=== PATIENT | female | born 1980 | race Caucasian/White ===

== ENCOUNTER → 2016-09-23 | Emergency (ER) | payer OTHER, MEDICAID ==
[~2016-09-23] MED LIST: NS 1000 ML 1,000 ML IV ONE; NS 1000 ML 1,000 ML ONE; TORADOL 30 MG VIAL IVP ONE; TORADOL 30 MG VIAL ONE; ZOFRAN INJ 4 MG VIAL IVP ONE; ZOFRAN INJ 4 MG VIAL ONE
[2016-09-23 13:05] VITALS: BP 164/94; BMI 36.3
--- NOTE | 2016-09-23 13:09 | DR.GENAD ---
HPI - PCP Primary Care Physician: DAVID - Complaint/Symptoms Chief Complaint Doctors Comments: Patient admits to nausea and vomiting for four days. She denies diarrhea. She was seen by her pcp and wqas given promethazine 25mg q8 for vomiting. A bone scan of the left lower extremity was done results pending. Chief Complaint:: NAUSEA AND VOMITING X 4 DAYS. - Source History Provided: Patient - Mode of Arrival Mode of Arrival: Ambulatory - Timing Onset of Chief Complaint: 09/20/16 PMH - PMH Past Medical History: Yes Past Medical History: Coronary Artery Disease, Depression, Diabetes, Migraines, GERD, Headaches, Hypertension, Renal Disease Past Surgical History: Yes Surgical History: , Cholecystectomy, Ortho Surgery - Family History History of Family Medical Conditions: Yes Family Medical History: Diabetes Mellitus, Cancer, [place], Sudden Cardiac , Hypertension - Social History Does patient currently use any type of tobacco product: No Have you used tobacco products in the last 12 months: No Type of Tobacco Use: None Does any household member use tobacco: No Alcohol Use: None Do you use any recreational Drugs:: No Lives With: Family Lives Where: Home - infectious screening In the last 2 months have you had wt loss of >10#?: NO Have you had fever, night sweats or hemotysis?: No Have you traveled outside the country in the last 6 months?: No Isolation: Standard ROS - Review of Systems Constitutional: No Symptoms Reported Eyes: No Symptoms Reported ENTM: No Symptoms Reported Respiratoy: No Symptoms Reported Cardiovascular: No Symptoms Reported Gastrointestinal/Abdominal: Nausea, Vomiting Genitourinary: No Symptoms Reported Neurological: No Symptoms Reported Musculoskeletal: No Symptoms Reported Integumentary: No Symptoms Reported Hematologic/Lymphatic: No Symptoms Reported Endocrine: No Symptoms Reported Psychiatric: No Symptoms Reported All Other Systems: Reviewed and Negative PE - Vital Signs Vitals: Temperature 97.8 F Pulse Rate 88 Respiratory Rate 16 Blood Pressure [Left Arm] 171/86 Blood Pressure [Right Arm] 178/92 Blood Pressure 164/94 O2 Sat by Pulse Oximetry 96 - General Limitations: No Limitations General Appearance: Alert, In No Apparent Distress - Head Head Exam: Normal Inspection, Atraumatic - Eyes Eye exam: Normal Appearance, PERRL, EOMI - ENT ENT Exam: Normal Exam External Ear Exam: Normal External Inspection TM/Canal Exam: Bilateral Normal Nose Exam: Normal Nose Exam Mouth Exam: Normal Inspection Throat Exam: Normal Inspection - Neck Neck Exam: Normal Inspection - Chest Chest Inspection: Normal Inspection - Respiratory Respiratory Exam: Normal Lung Sounds Bilat Respiratory Exam: Bilateral Clear to Auscultation - Cardiovascular Cardiovascular Exam: Regular Rate, Normal Rhythm - Abdominal Exam Abdominal Exam: Normal Inspection, Normal Bowel Sounds Abdominal Tenderness: negative: RUQ, RLQ, LUQ, LLQ, Epigastrium, Suprapubic, Diffuse, Mild, Moderate, Severe, Other - Extremities Extremities Exam: Normal Capillary Refill - Back Back Exam: Normal Inspection - Neurologic Neurological Exam: Alert, Oriented X3, CN II-XII Intact - Psychiatric Psychiatric Exam: Normal Affect, Normal Mood - Skin Skin Exam: Warm, Dry, Intact Course - Treatment Treatment: NS 1L - Reevaluation 1st: Improved ROR - Labs Reviewed Result Diagrams: 09/23/16 13:10 09/23/16 13:10 Laboratory: WBC 6.3 X10^3/uL (3.6-10.0) 09/23/16 13:10 RBC 3.80 X10^6/uL (3.5-5.4) 09/23/16 13:10 Hgb 11.4 g/dL (12.0-16.0) L 09/23/16 13:10 Hct 33.9 % (36.0-47.0) L 09/23/16 13:10 MCV 89.1 fL (80.0-100.0) 09/23/16 13:10 MCH 30.1 pg (27.0-34.0) 09/23/16 13:10 MCHC 33.8 g/dL (33.0-35.0) 09/23/16 13:10 RDW 12.4 % (11.6-16.5) 09/23/16 13:10 Plt Count 171 X10^3/uL (150.0-450.0) 09/23/16 13:10 MPV 8.1 fL (7.4-11.0) 09/23/16 13:10 Neut % 68.7 % (42.0-75.0) 09/23/16 13:10 Lymph % 23.4 % (21.0-51.0) 09/23/16 13:10 [place] % 4.4 % (0.0-13.0) 09/23/16 13:10 Eos % 1.6 % (0.9-2.9) 09/23/16 13:10 Baso % 1.9 % (0.2-1.0) H 09/23/16 13:10 Neut # 4.3 x10^3/uL (2.2-4.8) 09/23/16 13:10 Lymph # 1.5 X10^3/uL (1.3-2.9) 09/23/16 13:10 [place] # 0.3 x10^3/uL (0.3-0.8) 09/23/16 13:10 Eos # 0.1 x10^3/uL (0.0-0.2) 09/23/16 13:10 Baso # 0.1 X10^3/uL (0.0-0.1) 09/23/16 13:10 Absolute Nucleated RBC 0.0 /100WBC 09/23/16 13:10 Sodium 138 mmol/L (136-145) 09/23/16 13:10 Corrected Sodium 144 mmol/L (136-145) 09/23/16 13:10 Potassium 4.8 mmol/L (3.5-5.1) 09/23/16 13:10 Chloride 104 mmol/L (98-107) 09/23/16 13:10 Carbon Dioxide 22.1 mmol/L (21-32) 09/23/16 13:10 BUN 20 mg/dL (7-18) H 09/23/16 13:10 Creatinine 1.68 mg/dL (0.55-1.02) H 09/23/16 13:10 Est GFR (MDRD) Af Amer 44 (>60) L 09/23/16 13:10 Est GFR (MDRD) Non-Af 36 (>60) L 09/23/16 13:10 Glucose 361 mg/dL (65-99) H 09/23/16 13:10 Calcium 8.7 mg/dL (8.5-10.1) 09/23/16 13:10 Corrected Calcium TNP 09/23/16 13:10 Total Bilirubin 0.50 mg/dL (0.2-1.0) 09/23/16 13:10 AST 11 Units/L (15-37) L 09/23/16 13:10 ALT 28 Units/L (12-78) 09/23/16 13:10 Alkaline Phosphatase 102 Units/L (46-116) 09/23/16 13:10 Total Protein 7.4 g/dL (6.4-8.2) 09/23/16 13:10 Albumin 3.5 g/dL (3.4-5.0) 09/23/16 13:10 Globulin 3.9 g/dL (2.5-4.5) 09/23/16 13:10 Albumin/Globulin Ratio 0.9 Ratio (1.1-2.1) L 09/23/16 13:10 - Diagnosis Discharge Problem: Vomiting Qualifiers: Vomiting type: unspecified Vomiting Intractability: non-intractable Nausea presence: with nausea Qualified Code(s): R11.2 - Nausea with vomiting, unspecified - Discharge Plan Condition: Stable - Follow ups/Referrals Follow ups/Referrals: NISH HERNANDEZ [Primary Care Provider] - 3 days - Instructions
[2016-09-23 13:26] LABS: BASOPHILS # (AUTO) 0.1 X10^3/uL (0.0-0.1); BASOPHILS % (AUTO) 1.9 % (0.2-1.0); EOSINOPHILS # (AUTO) 0.1 x10^3/uL (0.0-0.2); EOSINOPHILS % (AUTO) 1.6 % (0.9-2.9); HEMATOCRIT 33.9 % (36.0-47.0); HEMOGLOBIN 11.4 g/dL (12.0-16.0); LYMPHOCYTES # (AUTO) 1.5 X10^3/uL (1.3-2.9); LYMPHOCYTES % (AUTO) 23.4 % (21.0-51.0); MEAN CORPUSCULAR HEMOGLOBIN 30.1 pg (27.0-34.0); MEAN CORPUSCULAR HGB CONC 33.8 g/dL (33.0-35.0); MEAN CORPUSCULAR VOLUME 89.1 fL (80.0-100.0); MEAN PLATELET VOLUME 8.1 fL (7.4-11.0); MONOCYTES # (AUTO) 0.3 x10^3/uL (0.3-0.8); MONOCYTES % (AUTO) 4.4 % (0.0-13.0); NEUTROPHILS # (AUTO) 4.3 x10^3/uL (2.2-4.8); NEUTROPHILS % (AUTO) 68.7 % (42.0-75.0); PLATELET COUNT 171 X10^3/uL (150.0-450.0); RED CELL DISTRIBUTION WIDTH 12.4 % (11.6-16.5); WHITE BLOOD COUNT 6.3 X10^3/uL (3.6-10.0)
[2016-09-23 13:39] LABS: ALANINE AMINOTRANSFERASE 28 Units/L (12-78); ALBUMIN 3.5 g/dL (3.4-5.0); ALKALINE PHOSPHATASE 102 Units/L (46-116); ASPARTATE AMINO TRANSFERASE 11 Units/L (15-37); BLOOD UREA NITROGEN 20 mg/dL (7-18); CALCIUM 8.7 mg/dL (8.5-10.1); CARBON DIOXIDE 22.1 mmol/L (21-32); CHLORIDE 104 mmol/L (98-107); COR NA(FOR HYPERGLY) 144 mmol/L (136-145); CREATININE 1.68 mg/dL (0.55-1.02); GLUCOSE 361 mg/dL (65-99); SODIUM 138 mmol/L (136-145); TOTAL PROTEIN 7.4 g/dL (6.4-8.2); eGFR BLACK RACES 44 (>60); eGFR NON BLACK RACES 36 (>60)
== END ==
LOC: ER 12:57
DX: R11.2 Nausea with vomiting, unspecified (principal)
CPT/HCPCS: 36415; 80053; 85025; 96367; 96374; 96375; 99282; 99283; A4222; J1885; J2405

== ENCOUNTER 2016-10-15 19:02 | Emergency (ER) | payer OTHER, MEDICAID ==
[2016-10-15 19:13] VITALS: BMI 36.3
[2016-10-15] MEDS ORDERED: DUONEB 0.5 MG/3 MG NEB ONE (20:09)
--- NOTE | 2016-10-15 20:09 | DR.GENAD ---
HPI - PCP Primary Care Physician: DAVID - Complaint/Symptoms Chief Complaint Doctors Comments: Patient stated that she saw her pcp today and was given a shot for cough. The cough has returned. She denies a history of cardiopulmonary disease. She stated that she fell off the commode this PM injured left lower extremity. Chief Complaint:: COUGH SHORTNESS OF BREATH, LEG PAIN AT SURGICAL SITE - Source History Provided: Patient - Mode of Arrival Mode of Arrival: Stretcher - Timing Onset of Chief Complaint: 10/13/16 PMH - PMH Past Medical History: Yes Past Medical History: Coronary Artery Disease, Depression, Diabetes, Migraines, GERD, Headaches, Hypertension, Renal Disease Past Surgical History: Yes Surgical History: , Cholecystectomy, Ortho Surgery Past Surgical History Comment: RIGHT BKA LEFT PARTIAL FOOT AMPUTATION - Family History History of Family Medical Conditions: Yes Family Medical History: Diabetes Mellitus, Cancer, [place], Sudden Cardiac , Hypertension - Social History Does patient currently use any type of tobacco product: No Have you used tobacco products in the last 12 months: No Type of Tobacco Use: None Does any household member use tobacco: Yes Alcohol Use: None Do you use any recreational Drugs:: No Lives With: Family Lives Where: Home - infectious screening In the last 2 months have you had wt loss of >10#?: NO Have you had fever, night sweats or hemotysis?: No Have you traveled outside the country in the last 6 months?: No Isolation: Standard ROS - Review of Systems Constitutional: No Symptoms Reported Eyes: No Symptoms Reported ENTM: No Symptoms Reported Respiratoy: No Symptoms Reported Cardiovascular: No Symptoms Reported Gastrointestinal/Abdominal: No Symptoms Reported Genitourinary: No Symptoms Reported Neurological: No Symptoms Reported Musculoskeletal: Left (injured when fell from the commode) Integumentary: No Symptoms Reported Hematologic/Lymphatic: No Symptoms Reported Endocrine: No Symptoms Reported Psychiatric: No Symptoms Reported All Other Systems: Reviewed and Negative PE - Vital Signs Vitals: Temperature 99.4 F Pulse Rate [Left Brachial] 94 Pulse Rate 99 Respiratory Rate 20 Blood Pressure [Left Arm] 127/69 Blood Pressure [Right Arm] 178/92 Blood Pressure 160/86 O2 Sat by Pulse Oximetry 100 - General Limitations: No Limitations General Appearance: Alert - Head Head Exam: Normal Inspection, Atraumatic - Eyes Eye exam: Normal Appearance, PERRL, EOMI - ENT ENT Exam: Normal Exam External Ear Exam: Normal External Inspection TM/Canal Exam: Bilateral Normal Nose Exam: Normal Nose Exam Mouth Exam: Normal Inspection Throat Exam: Normal Inspection - Neck Neck Exam: Normal Inspection - Chest Chest Inspection: Normal Inspection - Respiratory Respiratory Exam: Normal Lung Sounds Bilat Respiratory Exam: Bilateral Clear to Auscultation - Cardiovascular Cardiovascular Exam: Regular Rate - Abdominal Exam Abdominal Exam: Normal Inspection Abdominal Tenderness: negative: RUQ, RLQ, LUQ, LLQ, Epigastrium, Suprapubic, Diffuse, Mild, Moderate, Severe, Other - Extremities Extremities Exam: Other (left lower extremity post surgery with sutures intact no drainage or erythema) - Back Back Exam: Normal Inspection - Neurologic Neurological Exam: Alert, Oriented X3, CN II-XII Intact - Psychiatric Psychiatric Exam: Normal Affect - Skin Skin Exam: Warm Course - Reevaluation 1st: Improved ROR - XRAY XRAY Interpreted by: Radiologist (Chest: No acute cardiopulmonary disease) - Diagnosis Discharge Problem: Expiratory wheezing - Discharge Plan Condition: Stable - Follow ups/Referrals Follow ups/Referrals: NISH HERNANDEZ [Primary Care Provider] - 3 days - Instructions
[2016-10-15] MEDS ORDERED: DUONEB 0.5 MG/3 MG ONE (20:10)
[2016-10-15] MEDS ORDERED: PHENERGAN W/CODEINE 6.25MG/10MG PO ONE (21:32)
[2016-10-15] MEDS ORDERED: PHENERGAN W/CODEINE 6.25MG/10MG ONE (21:38)
[2016-10-15 21:44] VITALS: BP 127/69
--- NOTE | 2016-10-15 22:16 | RAD ---
AP Chest Indication: Expiratory wheezing with cough Comparison: 08/29/2016 Findings: The trachea is midline. The cardiac silhouette is unremarkable. Previous CABG is again noted. The l ungs are clear without focal infiltrate or effusion. The bony thorax is unremarkable. IMPRESSION: 1. No acute cardiopulmonary abnormality. Reported By:
== END 2016-10-15 22:55 | disposition home or self-care (01) ==
LOC: ER 19:05
DX: R06.2 Wheezing (principal)
CPT/HCPCS: 71010; 94640; 99282; J7620

== ENCOUNTER 2016-10-26 15:57 | Inpatient (IN) | payer OTHER, MEDICAID ==
[2016-10-26] MEDS ORDERED: ZOFRAN INJ 4 MG VIAL IVP PRN (16:48)
--- NOTE | 2016-10-26 17:04 | DR.H&P ---
H&P - History & Physical for Day of: H&P Date: 10/26/16 - Chief Complaint Chief Complaint: lle wound, redness, d/c - Allergies Allergies/Adverse Reactions: Allergies Allergy/AdvReac Type Severity Reaction Status Date / Time No Known Drug Allergy Allergy Verified 06/25/16 15:21 - History of Present Illness History of Present Illness: DIRECT ADMIT FROM DR DE LOS SANTOS OFFICE WITH CO LLE PAIN AND INFECTED WOUND FOLLOWING ORTHO PROCEDURE TO REMOVE HARDWARE. PT HAD PROCEDURE PER DR BASS IN [facility]. PT WAS SEEN 2 WEEKS AGO AND GIVEN ROUND OF BACTRIM, THEN SEEN ONE DAY AGO AND STARTED ON VANCOMYCIN. PT UNABLE TO KEEP PO MEDS DOWN, CO ELEVATED BLOOD SUGAR. PLAN TO ADMIT FOR FURTHER EVALUATION OF WOUND INFECTION, START IV LEVAQUIN AND TEFLERO - Past Medical History Past Medical History: Coronary Artery Disease, Depression, Diabetes, Migraines, GERD, Headaches, Hypertension, Renal Disease - Past Surgical History Surgical History: , Cholecystectomy, Ortho Surgery - Family History Family Medical History: Diabetes Mellitus, Cancer, [place], Sudden Cardiac , Hypertension - Social History Does patient currently use any type of tobacco product: No Have you used tobacco products in the last 12 months: No Type of Tobacco Use: None Does any household member use tobacco: No Alcohol Use: None Drug Use: None - Review of Systems Constitutional: Chills, Sweats, Weakness Eyes: Vision Change (CHRONIC) ENT: No Symptoms Reported Respiratory: No Symptoms Reported Cardiovascular: No Symptoms Reported Gastrointestinal: Nausea, Vomiting Genitourinary: No Symptoms Reported Musculoskeletal: Leg Pain Skin: Wound Neurological: No Symptoms Reported - Physical Exam Vital Signs: Blood Pressure [Left Arm] 127/69 Blood Pressure [Right Arm] 178/92 Blood Pressure 127/69 Oriented: Normal Eyes: Other (BLINDNESS RIGHT EYE, [place] LENS) Ear: Normal Nose: Normal Throat: Normal Respiratory: Clear Throughout Cardiovascular: Normal : Normal Auscultation: Bowel Sounds: Normal Palpation: Normal Tenderness: Normal Skin: Wound Musculoskeletal: Leg (LEFT LOWER EXTREMITY WOUND WITH LOCALIZED REDNESS, PURULENT D/C, TENDER), Swelling, Tender Mood Description: Calm Speech Pattern: Clear, Appropriate - Assessment/Plan (1) Lower extremity cellulitis Qualifiers: Laterality: L Status: Acute Plan: LLE, OBTAIN ADMISSION LABS, WOUND CULTURE, BLOOD CULTURE. XRAY LLE, START IV TEFLERO, LEVAQUIN IV. IV HYDRATION, WOUND CARE (2) Nausea & vomiting Qualifiers: Vomiting type: V Vomiting Intractability: V Status: Acute Plan: NAUSEA CONTROL, IV HYDRATION (3) CAD (coronary artery disease) Qualifiers: Coronary Disease-Associated Artery/Lesion type: C [place] vs. transplanted heart: N Associated angina: A Status: Chronic (4) Chronic kidney disease (CKD) Qualifiers: Chronic kidney disease stage: stage 3 (moderate) Qualified Code(s): N18.3 - Chronic kidney disease, stage 3 (moderate) Status: Chronic (5) Diabetes mellitus Qualifiers: Diabetes mellitus type: D Diabetes mellitus complication status: D Diabetes mellitus complication detail: D Diabetic retinopathy severity: D Proliferative retinopathy type: P Diabetes mellitus macular edema: D Diabetes mellitus alf insulin use: D Laterality: L Chronic kidney disease stage: C Status: Chronic Plan: SSI (6) GERD (gastroesophageal reflux disease) Qualifiers: Esophagitis presence: E Status: Chronic
[2016-10-26 17:40] LABS: BASOPHILS # (AUTO) 0.1 X10^3/uL (0.0-0.1); BASOPHILS % (AUTO) 1.6 % (0.2-1.0); EOSINOPHILS # (AUTO) 0.2 x10^3/uL (0.0-0.2); EOSINOPHILS % (AUTO) 2.8 % (0.9-2.9); HEMATOCRIT 26.6 % (36.0-47.0); HEMOGLOBIN 8.8 g/dL (12.0-16.0); LYMPHOCYTES # (AUTO) 1.3 X10^3/uL (1.3-2.9); LYMPHOCYTES % (AUTO) 17.4 % (21.0-51.0); MEAN CORPUSCULAR HEMOGLOBIN 30.7 pg (27.0-34.0); MEAN CORPUSCULAR HGB CONC 32.9 g/dL (33.0-35.0); MEAN CORPUSCULAR VOLUME 93.3 fL (80.0-100.0); MEAN PLATELET VOLUME 9.1 fL (7.4-11.0); MONOCYTES # (AUTO) 0.5 x10^3/uL (0.3-0.8); MONOCYTES % (AUTO) 6.2 % (0.0-13.0); NEUTROPHILS # (AUTO) 5.3 x10^3/uL (2.2-4.8); PLATELET COUNT 266 X10^3/uL (150.0-450.0); RED BLOOD COUNT 2.86 X10^6/uL (3.5-5.4); RED CELL DISTRIBUTION WIDTH 16.2 % (11.6-16.5); WHITE BLOOD COUNT 7.3 X10^3/uL (3.6-10.0)
[2016-10-26 17:51] LABS: ALANINE AMINOTRANSFERASE 21 Units/L (12-78); ALBUMIN 3.8 g/dL (3.4-5.0); ALKALINE PHOSPHATASE 108 Units/L (46-116); ASPARTATE AMINO TRANSFERASE 12 Units/L (15-37); BLOOD UREA NITROGEN 17 mg/dL (7-18); CALCIUM 8.8 mg/dL (8.5-10.1); CARBON DIOXIDE 23.1 mmol/L (21-32); CHLORIDE 108 mmol/L (98-107); COR NA(FOR HYPERGLY) 145 mmol/L (136-145); CREATININE 1.94 mg/dL (0.55-1.02); GLUCOSE 200 mg/dL (65-99); MAGNESIUM 1.6 mg/dL (1.7-2.9); SODIUM 143 mmol/L (136-145); eGFR BLACK RACES 37 (>60); eGFR NON BLACK RACES 31 (>60)
[2016-10-26] MEDS: NS 1000 ML 1,000 ML IV SCH (18:02)
[2016-10-26] MEDS: LEVAQUIN PREMIX IV 500 MG 500 MG/100 ML BAG IV SCH (18:02)
[2016-10-26] MEDS: MORPHINE SULFATE INJ 2 MG IVP PRN ×2 (18:11→22:27)
[2016-10-26 18:31] LABS: ERYTHROCYTE SEDIMENTATION RATE 58 MM/HOUR (0-20)
[2016-10-26 18:35] VITALS: BMI 36.9
--- NOTE | 2016-10-26 19:26 | RAD ---
EXAM: Left Lower Extremity X-ray INDICATION: Leg pain COMPARISION: Prior exam from August 29, 2016 TECHNIQUE: PA and Lat, 2 view FINDINGS: The plate and screw fixation of the distal tibia has been removed since prior exam. If the distal ti bial fracture line is unchanged compared to prior. The proximal fibular fracture with callus formati on is also unchanged. No acute fracture or dislocation. There is lucency in the distal tibia related to the previous hardware. Along the distal metaphysis of the tibia there is a larger region of luce ncy which is larger than a typical screw tract and measures 2.5 x 1.8 cm on the AP view. The joint s paces are preserved. There is soft tissue swelling of the distal lower extremity. IMPRESSION: Of the distal tibial hardware has been removed since prior exam. There is a area of lucency in the d istal tibial metaphysis which does not conform to typical hardware screw tracts and may represent in fection. If infection is clinically suspected, an MRI of the lower extremity/ankle could be obtained . No acute fracture identified. Reported By:
[2016-10-26 21:51] LABS: BILIRUBIN,URINE NEGATIVE (NEGATIVE); BLOOD/HEMOGLOBIN,URINE 5+ (NEGATIVE); GLUCOSE, URINE 2+ (NEGATIVE); KETONES,URINE NEGATIVE (NEGATIVE); LEUKOCYTE ESTERASE ,URINE 2+ (NEGATIVE); NITRITES,URINE NEGATIVE (NEGATIVE); PROTEIN,URINE 4+ (NEGATIVE); UROBILINOGEN,URINE NORMAL (NORMAL)
[2016-10-26] MEDS: TEFLARO 600 MG in NS 50 ML IV + SPIKE MINIBAG* 50 ML IV SCH (21:51)
[2016-10-26] MEDS: SNACK - Diabetic Appropriate PO SCH (21:52)
[2016-10-26] MEDS: HumuLIN R SUBCUT PRN (21:53)
[2016-10-26 22:13] LABS: APPEARANCE,URINE CLOUDY (CLEAR); BACTERIA,URINE 1+ /HPF (NEGATIVE); COLOR,URINE YELLOW (YELLOW); RBC,URINE 20-30 /HPF (NEGATIVE); SQUAMOUS EPITHELIAL CELL,UR NUMEROUS /HPF (NEGATIVE)
[2016-10-27] MEDS: MORPHINE SULFATE INJ 2 MG IVP PRN ×3 (02:45→17:25)
[2016-10-27] MEDS: NS 1000 ML 1,000 ML IV SCH ×2 (06:18→21:55)
[2016-10-27] MEDS: HumuLIN R SUBCUT PRN ×3 (06:18→21:57)
[2016-10-27 06:58] LABS: CARBON DIOXIDE 22.6 mmol/L (21-32); COR CA(FOR HYPOALB) 8.8 mg/dL (8.5-10.1); CREATININE 1.99 mg/dL (0.55-1.02); TOTAL PROTEIN 6.7 g/dL (6.4-8.2)
[2016-10-27 07:31] LABS: BASOPHILS # (AUTO) 0.1 X10^3/uL (0.0-0.1); BASOPHILS % (AUTO) 1.4 % (0.2-1.0); EOSINOPHILS # (AUTO) 0.2 x10^3/uL (0.0-0.2); EOSINOPHILS % (AUTO) 2.8 % (0.9-2.9); HEMATOCRIT 23.1 % (36.0-47.0); HEMOGLOBIN 7.4 g/dL (12.0-16.0); LYMPHOCYTES # (AUTO) 1.1 X10^3/uL (1.3-2.9); LYMPHOCYTES % (AUTO) 20.7 % (21.0-51.0); MEAN CORPUSCULAR HEMOGLOBIN 30.7 pg (27.0-34.0); MEAN CORPUSCULAR HGB CONC 32.2 g/dL (33.0-35.0); MEAN CORPUSCULAR VOLUME 95.2 fL (80.0-100.0); MEAN PLATELET VOLUME 9.8 fL (7.4-11.0); MONOCYTES # (AUTO) 0.4 x10^3/uL (0.3-0.8); MONOCYTES % (AUTO) 7.1 % (0.0-13.0); NEUTROPHILS # (AUTO) 3.8 x10^3/uL (2.2-4.8); PLATELET COUNT 183 X10^3/uL (150.0-450.0); RED BLOOD COUNT 2.42 X10^6/uL (3.5-5.4); RED CELL DISTRIBUTION WIDTH 17.1 % (11.6-16.5); WHITE BLOOD COUNT 5.5 X10^3/uL (3.6-10.0)
[2016-10-27] MEDS ORDERED: VENTOLIN or PROAIR HFA IN PRN (08:07)
[2016-10-27 08:11] LABS: ANISOCYTOSIS SLIGHT; HYPOCHROMASIA 1+; MICROCYTOSIS SLIGHT; PLATELET MORPHOLOGY COMMENT NORMAL (NORMAL)
[2016-10-27] MEDS ORDERED: [UNRECOGNIZED DRUG - OTHER] PO SCH (09:00)
[2016-10-27] MEDS ORDERED: [UNRECOGNIZED DRUG - OTHER] PO SCH (09:00)
[2016-10-27] MEDS ORDERED: [UNRECOGNIZED DRUG - OTHER] PO SCH (09:00)
[2016-10-27] MEDS: LEVAQUIN PREMIX IV 500 MG 500 MG/100 ML BAG IV SCH (09:13)
[2016-10-27] MEDS: TEFLARO 600 MG in NS 50 ML IV + SPIKE MINIBAG* 50 ML IV SCH ×2 (09:13→21:55)
[2016-10-27] MEDS: EFFEXOR XR 75 MG CAP PO SCH (10:11)
[2016-10-27] MEDS: ASPIRIN PO SCH (10:11)
[2016-10-27] MEDS: LASIX PO SCH (10:11)
[2016-10-27] MEDS: LYRICA CAP 50 MG PO SCH ×2 (10:11→21:56)
[2016-10-27] MEDS: PROTONIX TAB 40 MG PO SCH (10:11)
[2016-10-27] MEDS: PLAVIX PO SCH (10:12)
[2016-10-27] MEDS: COZAAR PO SCH (10:15)
[2016-10-27] MEDS: NORCO 10/325 TAB PO PRN ×2 (12:22→21:56)
--- NOTE | 2016-10-27 17:13 | PCM.PROG ---
Progress Note - Progress Note for Day of Date: 10/27/16 - Subjective Subjective: PATIENT RESTS IN BED, COMPLAINS OF LLE PAIN. DRESSING TO LLE DRY AND INTACT. WOUND IS NOTED WITH PURULENT DRAINAGE. PATIENT CONTINUES ON IV LEVAQUIN AND TEFLARO FOR LLE WOUND INFECTION FOLLOWING REMOVAL OF HARDWARE BY CAMRON GONZALEZ. WOUND AND BLOOD CULTURES ARE PENDING. PATIENT AFEBRILE, VITALS STABLE. CBC WNL EXCEPT: H/H 7.4/23.1. CMP WNL EXCEPT: CHL 111, BUN/ CREAT 21/1.99, GFR 30, GLUCOSE 251, CALCIUM 8.0, MAGNESIUM 1.6, ALBUMIN 3.0. WE WILL ADMINISTER TWO MAG-RIDERS, CONTINUE CURRENT TREATMENT AND FOLLOW UP IN AM WITH LABS. - Past Medical Family Social History Past Med/Fam/Surg Hx: No changes since H&P Allergies: Allergies No Known Drug Allergy Allergy (Verified 10/26/16 17:56) - Review of Systems ROS: No change since H&P - Vital Signs and I&O's Vital Signs: Temperature 98.2 F Pulse Rate [Radial] 71 Respiratory Rate 18 Blood Pressure [Left Arm] 149/71 Blood Pressure [Right Arm] 178/92 Blood Pressure 127/69 O2 Sat by Pulse Oximetry 99 Intake and Output: Intake & Output 10/25/16 10/26/16 10/27/16 10/28/16 11:59 11:59 11:59 11:59 Intake Total 815 1320 Output Total 200 1500 Balance 615 -180 - Physical Exam Oriented: Normal Eyes: Other (BLINDNESS RIGHT EYE, [place] LENS) Ear: Normal Nose: Normal Throat: Normal Respiratory: Normal Cardiovascular: Normal : Normal Auscultation: Bowel Sounds: Normal Palpation: Normal Tenderness: Normal Skin: Wound Musculoskeletal: Leg (LEFT LOWER EXTREMITY WOUND WITH LOCALIZED REDNESS, PURULENT D/C, TENDER), Swelling, Tender Mood Description: Calm Speech Pattern: Clear - Laboratory and Diagnostics Result Diagrams: 10/27/16 04:58 10/27/16 04:58 Labs: 10/26/16 18:03 Leg - Left Gram Stain - Final 10/26/16 18:03 Leg - Left Wound Culture - Preliminary Laboratory WBC 5.5 X10^3/uL (3.6-10.0) 10/27/16 04:58 RBC 2.42 X10^6/uL (3.5-5.4) L 10/27/16 04:58 Hgb 7.4 g/dL (12.0-16.0) L 10/27/16 04:58 Hct 23.1 % (36.0-47.0) L 10/27/16 04:58 MCV 95.2 fL (80.0-100.0) 10/27/16 04:58 MCH 30.7 pg (27.0-34.0) 10/27/16 04:58 MCHC 32.2 g/dL (33.0-35.0) L 10/27/16 04:58 RDW 17.1 % (11.6-16.5) H 10/27/16 04:58 Plt Count 183 X10^3/uL (150.0-450.0) 10/27/16 04:58 Plt Count Comment Adequate (ADEQUATE) 10/27/16 04:58 MPV 9.8 fL (7.4-11.0) 10/27/16 04:58 Neut % 68.0 % (42.0-75.0) 10/27/16 04:58 Lymph % 20.7 % (21.0-51.0) L 10/27/16 04:58 [place] % 7.1 % (0.0-13.0) 10/27/16 04:58 Eos % 2.8 % (0.9-2.9) 10/27/16 04:58 Baso % 1.4 % (0.2-1.0) H 10/27/16 04:58 Neut # 3.8 x10^3/uL (2.2-4.8) 10/27/16 04:58 Lymph # 1.1 X10^3/uL (1.3-2.9) L 10/27/16 04:58 [place] # 0.4 x10^3/uL (0.3-0.8) 10/27/16 04:58 Eos # 0.2 x10^3/uL (0.0-0.2) 10/27/16 04:58 Baso # 0.1 X10^3/uL (0.0-0.1) 10/27/16 04:58 Absolute Nucleated RBC 0.1 /100WBC 10/27/16 04:58 Plt Morphology Comment Normal (NORMAL) 10/27/16 04:58 RBC Morphology Abnormal (NORMAL) A 10/27/16 04:58 Hypochromasia 1+ A 10/27/16 04:58 Anisocytosis Slight A 10/27/16 04:58 Microcytosis Slight A 10/27/16 04:58 ESR 58 MM/HOUR (0-20) H 10/26/16 17:20 Sodium 145 mmol/L (136-145) 10/27/16 04:58 Corrected Sodium 149 mmol/L (136-145) H 10/27/16 04:58 Potassium 4.7 mmol/L (3.5-5.1) 10/27/16 04:58 Chloride 111 mmol/L (98-107) H 10/27/16 04:58 Carbon Dioxide 22.6 mmol/L (21-32) 10/27/16 04:58 BUN 21 mg/dL (7-18) H 10/27/16 04:58 Creatinine 1.99 mg/dL (0.55-1.02) H 10/27/16 04:58 Est GFR (MDRD) Af Amer 36 (>60) L 10/27/16 04:58 Est GFR (MDRD) Non-Af 30 (>60) L 10/27/16 04:58 Glucose 251 mg/dL (65-99) H 10/27/16 04:58 Calcium 8.0 mg/dL (8.5-10.1) L 10/27/16 04:58 Corrected Calcium 8.8 mg/dL (8.5-10.1) 10/27/16 04:58 Magnesium 1.6 mg/dL (1.7-2.9) L 10/27/16 04:58 Total Bilirubin 0.20 mg/dL (0.2-1.0) 10/27/16 04:58 AST 10 Units/L (15-37) L 10/27/16 04:58 ALT 17 Units/L (12-78) 10/27/16 04:58 Alkaline Phosphatase 87 Units/L (46-116) 10/27/16 04:58 C-Reactive Protein 5.40 mg/L (0-3.0) H 10/26/16 17:20 Total Protein 6.7 g/dL (6.4-8.2) 10/27/16 04:58 Albumin 3.0 g/dL (3.4-5.0) L 10/27/16 04:58 Globulin 3.7 g/dL (2.5-4.5) 10/27/16 04:58 Albumin/Globulin Ratio 0.8 Ratio (1.1-2.1) L 10/27/16 04:58 Specimen Type Random urine 10/26/16 21:39 Urine Color Yellow (YELLOW) 10/26/16 21:39 Urine Appearance Cloudy (CLEAR) 10/26/16 21:39 Urine pH 5.0 (5.0 - 8.0) 10/26/16 21:39 Ur Specific [place] 1.020 (1.000-1.030) 10/26/16 21:39 Urine Protein 4+ (NEGATIVE) 10/26/16 21:39 Urine Glucose (UA) 2+ (NEGATIVE) 10/26/16 21:39 Urine Ketones Negative (NEGATIVE) 10/26/16 21:39 Urine Occult Blood 5+ (NEGATIVE) 10/26/16 21:39 Urine Nitrite Negative (NEGATIVE) 10/26/16 21:39 Urine Bilirubin Negative (NEGATIVE) 10/26/16 21:39 Urine Urobilinogen Normal (NORMAL) 10/26/16 21:39 Ur Leukocyte Esterase 2+ (NEGATIVE) 10/26/16 21:39 Urine RBC 20-30 /HPF (NEGATIVE) 10/26/16 21:39 Urine WBC 60-80 /HPF (NEGATIVE) 10/26/16 21:39 Ur Squamous Epith Cells Numerous /HPF (NEGATIVE) 10/26/16 21:39 Urine Bacteria 1+ /HPF (NEGATIVE) 10/26/16 21:39 Ur Culture Indicated? No/not ordered 10/26/16 21:39 - Plan (1) Lower extremity cellulitis Status: Acute Qualifiers: Laterality: left Qualified Code(s): L03.116 - Cellulitis of left lower limb Plan: AWAIT WOUND CULTURE, BLOOD CULTURE. CONTINUE IV TEFLERO, LEVAQUIN IV. IV HYDRATION, WOUND CARE (2) CAD (coronary artery disease) Status: Chronic Qualifiers: Coronary Disease-Associated Artery/Lesion type: C [place] vs. transplanted heart: N Associated angina: A (3) Chronic kidney disease (CKD) Status: Chronic Qualifiers: Chronic kidney disease stage: stage 3 (moderate) Qualified Code(s): N18.3 - Chronic kidney disease, stage 3 (moderate) (4) Diabetes mellitus, type 2 Status: Chronic Qualifiers: Diabetes mellitus complication status: D Diabetes mellitus complication detail: with chronic kidney disease Diabetic retinopathy severity: D Proliferative retinopathy type: P Diabetes mellitus macular edema: D Diabetes mellitus custodial insulin use: with custodial use Laterality: L Chronic kidney disease stage: C (5) GERD (gastroesophageal reflux disease) Status: Chronic Qualifiers: Esophagitis presence: E (6) History of [place] (myocardial infarction) Status: Chronic (7) History of anemia Status: Chronic (8) History of cardiomyopathy Status: Chronic (9) History of coronary artery disease Status: Chronic (10) History of right below knee amputation Status: Chronic (11) Hx of CABG Status: Chronic (12) Hyperlipidemia Status: Chronic Qualifiers: Hyperlipidemia type: H (13) Hypertension Status: Chronic Qualifiers: Hypertension type: H (14) Obesity Status: Chronic Qualifiers: Obesity type: O Obesity severity: O
[2016-10-27] MEDS ORDERED: PROVENTIL NEB TX 0.083% 2.5MG/ 3ML NEB PRN (18:23)
[2016-10-27] MEDS: MAGNESIUM SULFATE 1 GM/100 mL PREMIX 1 GM/100 ML BAG IV SCH ×2 (19:07→20:46)
[2016-10-27] MEDS: TOPAMAX PO SCH (21:56)
[2016-10-27] MEDS: LIPITOR TAB 20 MG PO SCH (21:56)
[2016-10-27] MEDS: SNACK - Diabetic Appropriate PO SCH (21:58)
[2016-10-28] MEDS: MORPHINE SULFATE INJ 2 MG IVP PRN ×3 (02:29→20:57)
[2016-10-28 06:12] LABS: MAGNESIUM 2.2 mg/dL (1.7-2.9)
[2016-10-28 06:28] LABS: BASOPHILS # (AUTO) 0.1 X10^3/uL (0.0-0.1); BASOPHILS % (AUTO) 2.2 % (0.2-1.0); EOSINOPHILS # (AUTO) 0.2 x10^3/uL (0.0-0.2); HEMATOCRIT 22.6 % (36.0-47.0); HEMOGLOBIN 7.4 g/dL (12.0-16.0); LYMPHOCYTES # (AUTO) 1.1 X10^3/uL (1.3-2.9); LYMPHOCYTES % (AUTO) 23.4 % (21.0-51.0); MEAN CORPUSCULAR HEMOGLOBIN 30.9 pg (27.0-34.0); MEAN CORPUSCULAR HGB CONC 32.7 g/dL (33.0-35.0); MEAN CORPUSCULAR VOLUME 94.7 fL (80.0-100.0); MEAN PLATELET VOLUME 9.5 fL (7.4-11.0); MONOCYTES # (AUTO) 0.4 x10^3/uL (0.3-0.8); MONOCYTES % (AUTO) 8.5 % (0.0-13.0); NEUTROPHILS # (AUTO) 2.8 x10^3/uL (2.2-4.8); NEUTROPHILS % (AUTO) 61.9 % (42.0-75.0); PLATELET COUNT 164 X10^3/uL (150.0-450.0); RED BLOOD COUNT 2.39 X10^6/uL (3.5-5.4); RED CELL DISTRIBUTION WIDTH 16.9 % (11.6-16.5); WHITE BLOOD COUNT 4.6 X10^3/uL (3.6-10.0)
[2016-10-28 06:57] LABS: ALBUMIN 2.9 g/dL (3.4-5.0); CALCIUM 7.7 mg/dL (8.5-10.1); COR CA(FOR HYPOALB) 8.6 mg/dL (8.5-10.1); CREATININE 2.05 mg/dL (0.55-1.02); TOTAL PROTEIN 6.5 g/dL (6.4-8.2)
[2016-10-28 08:40] LABS: ANISOCYTOSIS SLIGHT; HYPOCHROMASIA SLIGHT; PLATELET MORPHOLOGY COMMENT NORMAL (NORMAL)
[2016-10-28 08:41] LABS: MICROCYTOSIS SLIGHT
[2016-10-28] MEDS: COZAAR PO SCH (09:15)
[2016-10-28] MEDS: EFFEXOR XR 75 MG CAP PO SCH (09:15)
[2016-10-28] MEDS: LYRICA CAP 50 MG PO SCH ×2 (09:16→20:51)
[2016-10-28] MEDS: LASIX PO SCH (09:16)
[2016-10-28] MEDS: ASPIRIN PO SCH (09:16)
[2016-10-28] MEDS: PLAVIX PO SCH (09:17)
[2016-10-28] MEDS: TEFLARO 600 MG in NS 50 ML IV + SPIKE MINIBAG* 50 ML IV SCH ×2 (09:17→20:50)
[2016-10-28] MEDS: PROTONIX TAB 40 MG PO SCH (09:17)
[2016-10-28] MEDS: LEVAQUIN PREMIX IV 500 MG 500 MG/100 ML BAG IV SCH (09:17)
[2016-10-28] MEDS: NORCO 10/325 TAB PO PRN ×2 (09:18→18:16)
[2016-10-28] MEDS ORDERED: TYLENOL 325 MG TAB PO PRN (09:25)
[2016-10-28] MEDS ORDERED: NS 500 ML IV 500 ML IV ONE (09:25)
[2016-10-28] MEDS ORDERED: BENADRYL INJ 50 MG VIAL IVP PRN (09:25)
[2016-10-28] MEDS: MAG-OX TAB PO SCH (09:27)
[2016-10-28 11:14] LABS: HEMATOCRIT 23.1 % (36.0-47.0); HEMOGLOBIN 7.5 g/dL (12.0-16.0)
[2016-10-28] MEDS: NS 1000 ML 1,000 ML IV SCH ×2 (11:19→17:25)
[2016-10-28] MEDS: HumuLIN R SUBCUT PRN (12:16)
[2016-10-28 17:21] LABS: HEMATOCRIT 23.2 % (36.0-47.0); HEMOGLOBIN 7.5 g/dL (12.0-16.0)
--- NOTE | 2016-10-28 18:31 | PCM.PROG ---
Progress Note - Progress Note for Day of Date: 10/28/16 - Subjective Subjective: PATIENT RESTS IN BED AND CONTINUES TO REPORT LLE PAIN. DRESSING TO LLE DRY AND INTACT. WOUND CONTINUES WITH PURULENT DRAINAGE. PATIENT CONTINUES ON IV LEVAQUIN AND TEFLARO FOR LLE WOUND INFECTION FOLLOWING REMOVAL OF HARDWARE BY CAMRON GONZALEZ. PRELIMINARY WOUND CULTURE REPORTS COAGULASE POSITIVE STAPH. BLOOD CULTURES ARE PENDING. PATIENT AFEBRILE, VITALS STABLE. CBC WNL EXCEPT: H/H 7.4/22/6. CMP WNL EXCEPT: CHL 109, BUN/CREAT 25/2.05, GFR 29, GLUCOSE 141, CALCIUM 7.7, ALBUMIN 2.9. WE WILL CHECK H/H EVERY 6 HOURS AND TRANSFUSE IF HGB IS LESS THAN 7. WE WILL CONTINUE CURRENT TREATMENT AND FOLLOW UP IN AM WITH LABS. - Past Medical Family Social History Past Med/Fam/Surg Hx: No changes since H&P Allergies: Allergies No Known Drug Allergy Allergy (Verified 10/26/16 17:56) - Review of Systems ROS: No change since H&P - Vital Signs and I&O's Vital Signs: Temperature 98.0 F Pulse Rate [Radial] 72 Pulse Rate 68 Respiratory Rate 18 Blood Pressure [Left Arm] 134/80 Blood Pressure [Right Arm] 178/92 Blood Pressure 127/69 O2 Sat by Pulse Oximetry 99 Intake and Output: Intake & Output 10/26/16 10/27/16 10/28/16 10/29/16 11:59 11:59 11:59 11:59 Intake Total 815 2978 762 Output Total 200 2100 1000 Balance 615 128 -238 - Physical Exam Oriented: Normal, Time, Person, Place Eyes: Other (BLINDNESS RIGHT EYE, [place] LENS) Ear: Normal Nose: Normal Throat: Normal Respiratory: Normal Cardiovascular: Normal : Normal Auscultation: Bowel Sounds: Normal Palpation: Normal Tenderness: Normal Skin: Wound Musculoskeletal: Leg (LEFT LOWER EXTREMITY WOUND WITH LOCALIZED REDNESS, PURULENT D/C, TENDER), Swelling, Tender Psychiatric: Normal Mood Description: Calm Affect: Normal Speech Pattern: Clear, Appropriate - Laboratory and Diagnostics Result Diagrams: 10/28/16 16:57 10/28/16 04:25 Labs: 10/26/16 17:25 Blood Blood Culture - Preliminary 10/26/16 17:20 Blood Blood Culture - Preliminary 10/26/16 18:03 Leg - Left Gram Stain - Final 10/26/16 18:03 Leg - Left Wound Culture - Preliminary Laboratory WBC 4.6 X10^3/uL (3.6-10.0) 10/28/16 04:25 RBC 2.39 X10^6/uL (3.5-5.4) L 10/28/16 04:25 Hgb 7.5 g/dL (12.0-16.0) L 10/28/16 16:57 Hct 23.2 % (36.0-47.0) L 10/28/16 16:57 MCV 94.7 fL (80.0-100.0) 10/28/16 04:25 MCH 30.9 pg (27.0-34.0) 10/28/16 04:25 MCHC 32.7 g/dL (33.0-35.0) L 10/28/16 04:25 RDW 16.9 % (11.6-16.5) H 10/28/16 04:25 Plt Count 164 X10^3/uL (150.0-450.0) 10/28/16 04:25 Plt Count Comment Adequate (ADEQUATE) 10/28/16 04:25 MPV 9.5 fL (7.4-11.0) 10/28/16 04:25 Neut % 61.9 % (42.0-75.0) 10/28/16 04:25 Lymph % 23.4 % (21.0-51.0) 10/28/16 04:25 [place] % 8.5 % (0.0-13.0) 10/28/16 04:25 Eos % 4.0 % (0.9-2.9) H 10/28/16 04:25 Baso % 2.2 % (0.2-1.0) H 10/28/16 04:25 Neut # 2.8 x10^3/uL (2.2-4.8) 10/28/16 04:25 Lymph # 1.1 X10^3/uL (1.3-2.9) L 10/28/16 04:25 [place] # 0.4 x10^3/uL (0.3-0.8) 10/28/16 04:25 Eos # 0.2 x10^3/uL (0.0-0.2) 10/28/16 04:25 Baso # 0.1 X10^3/uL (0.0-0.1) 10/28/16 04:25 Absolute Nucleated RBC 0.0 /100WBC 10/28/16 04:25 Plt Morphology Comment Normal (NORMAL) 10/28/16 04:25 RBC Morphology Abnormal (NORMAL) A 10/28/16 04:25 Hypochromasia Slight A 10/28/16 04:25 Anisocytosis Slight A 10/28/16 04:25 Microcytosis Slight A 10/28/16 04:25 Macrocytosis Slight A 10/28/16 04:25 ESR 58 MM/HOUR (0-20) H 10/26/16 17:20 Sodium 142 mmol/L (136-145) 10/28/16 04:25 Corrected Sodium 143 mmol/L (136-145) 10/28/16 04:25 Potassium 4.8 mmol/L (3.5-5.1) 10/28/16 04:25 Chloride 109 mmol/L (98-107) H 10/28/16 04:25 Carbon Dioxide 23.0 mmol/L (21-32) 10/28/16 04:25 BUN 25 mg/dL (7-18) H 10/28/16 04:25 Creatinine 2.05 mg/dL (0.55-1.02) H 10/28/16 04:25 Est GFR (MDRD) Af Amer 35 (>60) L 10/28/16 04:25 Est GFR (MDRD) Non-Af 29 (>60) L 10/28/16 04:25 Glucose 141 mg/dL (65-99) H 10/28/16 04:25 Calcium 7.7 mg/dL (8.5-10.1) L 10/28/16 04:25 Corrected Calcium 8.6 mg/dL (8.5-10.1) 10/28/16 04:25 Magnesium 2.2 mg/dL (1.7-2.9) 10/28/16 04:25 Total Bilirubin 0.30 mg/dL (0.2-1.0) 10/28/16 04:25 AST 10 Units/L (15-37) L 10/28/16 04:25 ALT 14 Units/L (12-78) 10/28/16 04:25 Alkaline Phosphatase 83 Units/L (46-116) 10/28/16 04:25 C-Reactive Protein 5.40 mg/L (0-3.0) H 10/26/16 17:20 Total Protein 6.5 g/dL (6.4-8.2) 10/28/16 04:25 Albumin 2.9 g/dL (3.4-5.0) L 10/28/16 04:25 Globulin 3.6 g/dL (2.5-4.5) 10/28/16 04:25 Albumin/Globulin Ratio 0.8 Ratio (1.1-2.1) L 10/28/16 04:25 Specimen Type Random urine 10/26/16 21:39 Urine Color Yellow (YELLOW) 10/26/16 21:39 Urine Appearance Cloudy (CLEAR) 10/26/16 21:39 Urine pH 5.0 (5.0 - 8.0) 10/26/16 21:39 Ur Specific [place] 1.020 (1.000-1.030) 10/26/16 21:39 Urine Protein 4+ (NEGATIVE) 10/26/16 21:39 Urine Glucose (UA) 2+ (NEGATIVE) 10/26/16 21:39 Urine Ketones Negative (NEGATIVE) 10/26/16 21:39 Urine Occult Blood 5+ (NEGATIVE) 10/26/16 21:39 Urine Nitrite Negative (NEGATIVE) 10/26/16 21:39 Urine Bilirubin Negative (NEGATIVE) 10/26/16 21:39 Urine Urobilinogen Normal (NORMAL) 10/26/16 21:39 Ur Leukocyte Esterase 2+ (NEGATIVE) 10/26/16 21:39 Urine RBC 20-30 /HPF (NEGATIVE) 10/26/16 21:39 Urine WBC 60-80 /HPF (NEGATIVE) 10/26/16 21:39 Ur Squamous Epith Cells Numerous /HPF (NEGATIVE) 10/26/16 21:39 Urine Bacteria 1+ /HPF (NEGATIVE) 10/26/16 21:39 Ur Culture Indicated? No/not ordered 10/26/16 21:39 Blood Type A POSITIVE 10/28/16 10:55 Antibody Screen Negative 10/28/16 10:55 Crossmatch See Detail 10/28/16 10:55 - Plan (1) Lower extremity cellulitis Status: Acute Qualifiers: Laterality: left Qualified Code(s): L03.116 - Cellulitis of left lower limb Plan: AWAIT WOUND CULTURE, BLOOD CULTURE. CONTINUE IV TEFLERO, LEVAQUIN IV. IV HYDRATION, WOUND CARE (2) Anemia Status: Acute Qualifiers: Anemia type: A Iron deficiency anemia type: I Vitamin B12 deficiency anemia type: V Folate deficiency anemia type: F Bone marrow failure anemia type: B Hemolytic anemia type: H Other causes of anemia: O Plan: CHECK H/H Q6H, TRANSFUSE FOR HGB LESS THAN 7, MONITOR. (3) CAD (coronary artery disease) Status: Chronic Qualifiers: Coronary Disease-Associated Artery/Lesion type: C [place] vs. transplanted heart: N Associated angina: A (4) Chronic kidney disease (CKD) Status: Chronic Qualifiers: Chronic kidney disease stage: stage 3 (moderate) Qualified Code(s): N18.3 - Chronic kidney disease, stage 3 (moderate) (5) Diabetes mellitus, type 2 Status: Chronic Qualifiers: Diabetes mellitus complication status: D Diabetes mellitus complication detail: with chronic kidney disease Diabetic retinopathy severity: D Proliferative retinopathy type: P Diabetes mellitus macular edema: D Diabetes mellitus detention insulin use: with supervisor firearms use Laterality: L Chronic kidney disease stage: C (6) GERD (gastroesophageal reflux disease) Status: Chronic Qualifiers: Esophagitis presence: E (7) History of HI (myocardial infarction) Status: Chronic (8) History of anemia Status: Chronic (9) History of cardiomyopathy Status: Chronic (10) History of coronary artery disease Status: Chronic (11) History of right below knee amputation Status: Chronic (12) Hx of CABG Status: Chronic (13) Hyperlipidemia Status: Chronic Qualifiers: Hyperlipidemia type: H (14) Hypertension Status: Chronic Qualifiers: Hypertension type: H (15) Obesity Status: Chronic Qualifiers: Obesity type: O Obesity severity: O
[2016-10-28] MEDS: SNACK - Diabetic Appropriate PO SCH (20:49)
[2016-10-28] MEDS: TOPAMAX PO SCH (20:50)
[2016-10-28] MEDS: LIPITOR TAB 20 MG PO SCH (20:50)
[2016-10-28 23:13] LABS: HEMATOCRIT 22.4 % (36.0-47.0); HEMOGLOBIN 7.3 g/dL (12.0-16.0)
[2016-10-29] MEDS: NORCO 10/325 TAB PO PRN ×3 (00:52→16:34)
[2016-10-29] MEDS: MORPHINE SULFATE INJ 2 MG IVP PRN ×3 (05:05→21:16)
[2016-10-29] MEDS: NS 1000 ML 1,000 ML IV SCH ×2 (05:08→16:32)
[2016-10-29 06:04] LABS: ALBUMIN 2.9 g/dL (3.4-5.0); CALCIUM 7.7 mg/dL (8.5-10.1); CARBON DIOXIDE 22.2 mmol/L (21-32); COR CA(FOR HYPOALB) 8.6 mg/dL (8.5-10.1); CREATININE 2.17 mg/dL (0.55-1.02); TOTAL PROTEIN 6.3 g/dL (6.4-8.2)
[2016-10-29 06:13] LABS: BASOPHILS # (AUTO) 0.1 X10^3/uL (0.0-0.1); BASOPHILS % (AUTO) 2.5 % (0.2-1.0); EOSINOPHILS # (AUTO) 0.2 x10^3/uL (0.0-0.2); EOSINOPHILS % (AUTO) 4.1 % (0.9-2.9); HEMATOCRIT 22.2 % (36.0-47.0); HEMOGLOBIN 7.3 g/dL (12.0-16.0); LYMPHOCYTES % (AUTO) 23.1 % (21.0-51.0); MEAN CORPUSCULAR HGB CONC 32.8 g/dL (33.0-35.0); MEAN CORPUSCULAR VOLUME 94.6 fL (80.0-100.0); MEAN PLATELET VOLUME 9.7 fL (7.4-11.0); MONOCYTES # (AUTO) 0.3 x10^3/uL (0.3-0.8); MONOCYTES % (AUTO) 7.2 % (0.0-13.0); NEUTROPHILS # (AUTO) 2.7 x10^3/uL (2.2-4.8); NEUTROPHILS % (AUTO) 63.1 % (42.0-75.0); PLATELET COUNT 154 X10^3/uL (150.0-450.0); RED BLOOD COUNT 2.34 X10^6/uL (3.5-5.4); RED CELL DISTRIBUTION WIDTH 16.5 % (11.6-16.5); WHITE BLOOD COUNT 4.2 X10^3/uL (3.6-10.0)
[2016-10-29 06:45] LABS: ANISOCYTOSIS SLIGHT; HYPOCHROMASIA 1+; PLATELET MORPHOLOGY COMMENT NORMAL (NORMAL)
[2016-10-29] MEDS: TEFLARO 600 MG in NS 50 ML IV + SPIKE MINIBAG* 50 ML IV SCH ×2 (08:45→21:14)
[2016-10-29] MEDS: COZAAR PO SCH (08:46)
[2016-10-29] MEDS: LYRICA CAP 50 MG PO SCH ×2 (08:46→21:14)
[2016-10-29] MEDS: ASPIRIN PO SCH (08:46)
[2016-10-29] MEDS: LEVAQUIN PREMIX IV 500 MG 500 MG/100 ML BAG IV SCH (08:46)
[2016-10-29] MEDS: LASIX PO SCH (08:47)
[2016-10-29] MEDS: MAG-OX TAB PO SCH (08:47)
[2016-10-29] MEDS: PLAVIX PO SCH (08:47)
[2016-10-29] MEDS: EFFEXOR XR 75 MG CAP PO SCH (08:47)
[2016-10-29] MEDS: PROTONIX TAB 40 MG PO SCH (08:47)
[2016-10-29] MEDS ORDERED: MILK OF MAGNESIA PO PRN (08:56)
[2016-10-29] MEDS ORDERED: NS IRRIGATION 500 ML IR ONE (10:37)
[2016-10-29] MEDS: COLACE CAP 100 MG PO PRN (11:30)
[2016-10-29] MEDS: HumuLIN R SUBCUT PRN (11:32)
--- NOTE | 2016-10-29 13:48 | PCM.PROG ---
Progress Note - Progress Note for Day of Date: 10/29/16 - Subjective Subjective: PATIENT RESTS IN BED AND CONTINUES TO REPORT LLE PAIN. DRESSING TO LLE DRY AND INTACT. WOUND CONTINUES WITH PURULENT DRAINAGE. PATIENT CONTINUES ON IV LEVAQUIN AND TEFLARO FOR LLE WOUND INFECTION FOLLOWING REMOVAL OF HARDWARE BY CAMRON GONAZLEZ. PRELIMINARY WOUND CULTURE REPORTS COAGULASE POSITIVE STAPH. REPEAT AM LABS - Past Medical Family Social History Past Med/Fam/Surg Hx: No changes since H&P Allergies: Allergies No Known Drug Allergy Allergy (Verified 10/26/16 17:56) - Review of Systems ROS: No change since H&P - Vital Signs and I&O's Vital Signs: Temperature 97.7 F Pulse Rate [Right Brachial] 65 Pulse Rate [Left Brachial] 64 Pulse Rate [Radial] 72 Pulse Rate 68 Respiratory Rate 20 Blood Pressure [Left Arm] 114/68 Blood Pressure [Right Arm] 107/54 Blood Pressure 127/69 O2 Sat by Pulse Oximetry 100 Intake and Output: Intake & Output 10/27/16 10/28/16 10/29/16 10/30/16 11:59 11:59 11:59 11:59 Intake Total 815 2978 2132 Output Total 200 2100 1450 Balance 615 878 682 - Physical Exam Oriented: Normal, Time, Person, Place Eyes: Other (BLINDNESS RIGHT EYE, [place] LENS) Ear: Normal Nose: Normal Throat: Normal Respiratory: Normal Cardiovascular: Normal : Normal Auscultation: Bowel Sounds: Normal Tenderness: Normal Skin: Wound Musculoskeletal: Leg (LEFT LOWER EXTREMITY WOUND WITH LOCALIZED REDNESS, PURULENT D/C, TENDER), Swelling, Tender Psychiatric: Normal Mood Description: Calm Affect: Normal Speech Pattern: Clear, Appropriate - Laboratory and Diagnostics Result Diagrams: 10/29/16 05:25 10/29/16 05:25 Labs: 10/26/16 18:03 Leg - Left Gram Stain - Final 10/26/16 18:03 Leg - Left Wound Culture - Final Enterococcus Faecalis 10/26/16 17:25 Blood Blood Culture - Preliminary 10/26/16 17:20 Blood Blood Culture - Preliminary Laboratory WBC 4.2 X10^3/uL (3.6-10.0) 10/29/16 05:25 RBC 2.34 X10^6/uL (3.5-5.4) L 10/29/16 05:25 Hgb 7.3 g/dL (12.0-16.0) L 10/29/16 05:25 Hct 22.2 % (36.0-47.0) L 10/29/16 05:25 MCV 94.6 fL (80.0-100.0) 10/29/16 05:25 MCH 31.0 pg (27.0-34.0) 10/29/16 05:25 MCHC 32.8 g/dL (33.0-35.0) L 10/29/16 05:25 RDW 16.5 % (11.6-16.5) 10/29/16 05:25 Plt Count 154 X10^3/uL (150.0-450.0) 10/29/16 05:25 Plt Count Comment Adequate (ADEQUATE) 10/29/16 05:25 MPV 9.7 fL (7.4-11.0) 10/29/16 05:25 Neut % 63.1 % (42.0-75.0) 10/29/16 05:25 Lymph % 23.1 % (21.0-51.0) 10/29/16 05:25 [place] % 7.2 % (0.0-13.0) 10/29/16 05:25 Eos % 4.1 % (0.9-2.9) H 10/29/16 05:25 Baso % 2.5 % (0.2-1.0) H 10/29/16 05:25 Neut # 2.7 x10^3/uL (2.2-4.8) 10/29/16 05:25 Lymph # 1.0 X10^3/uL (1.3-2.9) L 10/29/16 05:25 [place] # 0.3 x10^3/uL (0.3-0.8) 10/29/16 05:25 Eos # 0.2 x10^3/uL (0.0-0.2) 10/29/16 05:25 Baso # 0.1 X10^3/uL (0.0-0.1) 10/29/16 05:25 Absolute Nucleated RBC 0.0 /100WBC 10/29/16 05:25 Plt Morphology Comment Normal (NORMAL) 10/29/16 05:25 RBC Morphology Abnormal (NORMAL) A 10/29/16 05:25 Hypochromasia 1+ A 10/29/16 05:25 Anisocytosis Slight A 10/29/16 05:25 Microcytosis Slight A 10/28/16 04:25 Macrocytosis Slight A 10/28/16 04:25 ESR 58 MM/HOUR (0-20) H 10/26/16 17:20 Sodium 140 mmol/L (136-145) 10/29/16 05:25 Corrected Sodium 141 mmol/L (136-145) 10/29/16 05:25 Potassium 5.0 mmol/L (3.5-5.1) 10/29/16 05:25 Chloride 110 mmol/L (98-107) H 10/29/16 05:25 Carbon Dioxide 22.2 mmol/L (21-32) 10/29/16 05:25 BUN 26 mg/dL (7-18) H 10/29/16 05:25 Creatinine 2.17 mg/dL (0.55-1.02) H 10/29/16 05:25 Est GFR (MDRD) Af Amer 33 (>60) L 10/29/16 05:25 Est GFR (MDRD) Non-Af 27 (>60) L 10/29/16 05:25 Glucose 125 mg/dL (65-99) H 10/29/16 05:25 Calcium 7.7 mg/dL (8.5-10.1) L 10/29/16 05:25 Corrected Calcium 8.6 mg/dL (8.5-10.1) 10/29/16 05:25 Magnesium 2.2 mg/dL (1.7-2.9) 10/28/16 04:25 Iron 57 ug/dL (50-175) 10/28/16 04:25 Transferrin 148 mg/dL (202-364) L 10/28/16 04:25 Ferritin 348 ng/mL (8-252) H 10/28/16 04:25 Total Bilirubin 0.30 mg/dL (0.2-1.0) 10/29/16 05:25 AST 11 Units/L (15-37) L 10/29/16 05:25 ALT 18 Units/L (12-78) 10/29/16 05:25 Alkaline Phosphatase 83 Units/L (46-116) 10/29/16 05:25 C-Reactive Protein 5.40 mg/L (0-3.0) H 10/26/16 17:20 Total Protein 6.3 g/dL (6.4-8.2) L 10/29/16 05:25 Albumin 2.9 g/dL (3.4-5.0) L 10/29/16 05:25 Globulin 3.4 g/dL (2.5-4.5) 10/29/16 05:25 Albumin/Globulin Ratio 0.9 Ratio (1.1-2.1) L 10/29/16 05:25 Vitamin B12 270 pg/mL (193-986) 10/28/16 04:25 Folate 4.7 ng/mL (>8.6) L 10/28/16 04:25 Specimen Type Random urine 10/26/16 21:39 Urine Color Yellow (YELLOW) 10/26/16 21:39 Urine Appearance Cloudy (CLEAR) 10/26/16 21:39 Urine pH 5.0 (5.0 - 8.0) 10/26/16 21:39 Ur Specific [place] 1.020 (1.000-1.030) 10/26/16 21:39 Urine Protein 4+ (NEGATIVE) 10/26/16 21:39 Urine Glucose (UA) 2+ (NEGATIVE) 10/26/16 21:39 Urine Ketones Negative (NEGATIVE) 10/26/16 21:39 Urine Occult Blood 5+ (NEGATIVE) 10/26/16 21:39 Urine Nitrite Negative (NEGATIVE) 10/26/16 21:39 Urine Bilirubin Negative (NEGATIVE) 10/26/16 21:39 Urine Urobilinogen Normal (NORMAL) 10/26/16 21:39 Ur Leukocyte Esterase 2+ (NEGATIVE) 10/26/16 21:39 Urine RBC 20-30 /HPF (NEGATIVE) 10/26/16 21:39 Urine WBC 60-80 /HPF (NEGATIVE) 10/26/16 21:39 Ur Squamous Epith Cells Numerous /HPF (NEGATIVE) 10/26/16 21:39 Urine Bacteria 1+ /HPF (NEGATIVE) 10/26/16 21:39 Ur Culture Indicated? No/not ordered 10/26/16 21:39 Blood Type A POSITIVE 10/28/16 10:55 Antibody Screen Negative 05/07/17 10:55 Crossmatch See Detail 10/28/16 10:55 - Plan (1) Lower extremity cellulitis Status: Inactive Qualifiers: Laterality: left Qualified Code(s): L03.116 - Cellulitis of left lower limb Plan: CONTINUE IV TEFLERO, LEVAQUIN IV. IV HYDRATION, WOUND CARE. REPEAT AM LABS (2) Nausea & vomiting Status: Inactive Qualifiers: Vomiting type: V Vomiting Intractability: V Plan: NAUSEA CONTROL, IV HYDRATION (3) CAD (coronary artery disease) Status: Chronic Qualifiers: Coronary Disease-Associated Artery/Lesion type: C [place] vs. transplanted heart: N Associated angina: A (4) Chronic kidney disease (CKD) Status: Chronic Qualifiers: Chronic kidney disease stage: stage 3 (moderate) Qualified Code(s): N18.3 - Chronic kidney disease, stage 3 (moderate) (5) Diabetes mellitus Status: Chronic Qualifiers: Diabetes mellitus type: D Diabetes mellitus complication status: D Diabetes mellitus complication detail: D Diabetic retinopathy severity: D Proliferative retinopathy type: P Diabetes mellitus macular edema: D Diabetes mellitus custodial insulin use: D Laterality: L Chronic kidney disease stage: C Plan: SSI (6) GERD (gastroesophageal reflux disease) Status: Chronic Qualifiers: Esophagitis presence: E
[2016-10-29] MEDS: CHRONULAC PO SCH (17:55)
[2016-10-29] MEDS: TOPAMAX PO SCH (21:15)
[2016-10-29] MEDS: LIPITOR TAB 20 MG PO SCH (21:15)
[2016-10-29] MEDS: SNACK - Diabetic Appropriate PO SCH (21:17)
[2016-10-30 05:26] LABS: ALBUMIN 2.9 g/dL (3.4-5.0); CALCIUM 7.8 mg/dL (8.5-10.1); CARBON DIOXIDE 21.2 mmol/L (21-32); COR CA(FOR HYPOALB) 8.7 mg/dL (8.5-10.1); CREATININE 2.39 mg/dL (0.55-1.02); TOTAL PROTEIN 6.4 g/dL (6.4-8.2)
[2016-10-30 05:31] LABS: BASOPHILS # (AUTO) 0.1 X10^3/uL (0.0-0.1); EOSINOPHILS # (AUTO) 0.2 x10^3/uL (0.0-0.2); EOSINOPHILS % (AUTO) 3.3 % (0.9-2.9); LYMPHOCYTES # (AUTO) 1.3 X10^3/uL (1.3-2.9); LYMPHOCYTES % (AUTO) 25.3 % (21.0-51.0); MEAN CORPUSCULAR HEMOGLOBIN 31.4 pg (27.0-34.0); MEAN CORPUSCULAR HGB CONC 32.5 g/dL (33.0-35.0); MEAN CORPUSCULAR VOLUME 96.5 fL (80.0-100.0); MEAN PLATELET VOLUME 10.4 fL (7.4-11.0); MONOCYTES # (AUTO) 0.4 x10^3/uL (0.3-0.8); MONOCYTES % (AUTO) 8.5 % (0.0-13.0); NEUTROPHILS # (AUTO) 3.1 x10^3/uL (2.2-4.8); NEUTROPHILS % (AUTO) 60.9 % (42.0-75.0); PLATELET COUNT 143 X10^3/uL (150.0-450.0); RED BLOOD COUNT 2.18 X10^6/uL (3.5-5.4)
[2016-10-30 06:06] LABS: WHITE BLOOD COUNT 5.6 X10^3/uL (3.6-10.0)
[2016-10-30 06:10] LABS: ANISOCYTOSIS SLIGHT; HYPOCHROMASIA 1+; PLATELET MORPHOLOGY COMMENT NORMAL (NORMAL)
[2016-10-30] MEDS: HumuLIN R SUBCUT PRN (06:10)
[2016-10-30 06:11] LABS: HEMOGLOBIN 6.8 g/dL (12.0-16.0)
[2016-10-30] MEDS: MORPHINE SULFATE INJ 2 MG IVP PRN ×3 (06:13→21:01)
[2016-10-30] MEDS ORDERED: NS 500 ML IV 500 ML IV ONE ×2 (08:44→21:36)
[2016-10-30] MEDS: TEFLARO 600 MG in NS 50 ML IV + SPIKE MINIBAG* 50 ML IV SCH ×2 (08:49→21:01)
[2016-10-30] MEDS: NS 1000 ML 1,000 ML IV SCH ×2 (08:49→22:15)
[2016-10-30] MEDS: LEVAQUIN PREMIX IV 500 MG 500 MG/100 ML BAG IV SCH (08:49)
[2016-10-30] MEDS: LASIX PO SCH (08:50)
[2016-10-30] MEDS: PROTONIX TAB 40 MG PO SCH (08:50)
[2016-10-30] MEDS: COZAAR PO SCH (08:50)
[2016-10-30] MEDS: EFFEXOR XR 75 MG CAP PO SCH (08:50)
[2016-10-30] MEDS: ASPIRIN PO SCH (08:50)
[2016-10-30] MEDS: MAG-OX TAB PO SCH (08:50)
[2016-10-30] MEDS: LYRICA CAP 50 MG PO SCH ×2 (08:50→21:00)
[2016-10-30] MEDS: CHRONULAC PO SCH (08:51)
[2016-10-30] MEDS: PLAVIX PO SCH (08:51)
[2016-10-30] MEDS ORDERED: LASIX IVP SCH (09:00)
[2016-10-30] MEDS: NORCO 10/325 TAB PO PRN ×2 (11:43→18:06)
--- NOTE | 2016-10-30 12:47 | PCM.PROG ---
Progress Note - Subjective Subjective: PATIENT RESTS IN BED AND CONTINUES TO REPORT LLE PAIN. DRESSING TO LLE DRY AND INTACT. WOUND CONTINUES WITH PURULENT DRAINAGE. PATIENT CONTINUES ON IV LEVAQUIN AND TEFLARO FOR LLE WOUND INFECTION FOLLOWING REMOVAL OF HARDWARE BY CAMRON GONZALEZ. PRELIMINARY WOUND CULTURE REPORTS COAGULASE POSITIVE STAPH. HGB 6.8 THIS AM , WILL PROCEED WITH TRANSFUSION PRBC X 2 - Past Medical Family Social History Past Med/Fam/Surg Hx: No changes since H&P Allergies: Allergies No Known Drug Allergy Allergy (Verified 10/26/16 17:56) - Review of Systems ROS: No change since H&P - Vital Signs and I&O's Vital Signs: Temperature 97.9 F Pulse Rate [Right Brachial] 63 Pulse Rate [Left Brachial] 65 Pulse Rate [Radial] 72 Pulse Rate 68 Respiratory Rate 20 Blood Pressure [Left Arm] 122/60 Blood Pressure [Right Arm] 107/54 Blood Pressure 127/69 O2 Sat by Pulse Oximetry 100 Intake and Output: Intake & Output 10/28/16 10/29/16 10/30/16 10/31/16 11:59 11:59 11:59 11:59 Intake Total 2978 2132 1800 Output Total 2100 1450 600 Balance 702 833 6475 - Physical Exam Oriented: Normal, Time, Person, Place Eyes: Other (BLINDNESS RIGHT EYE, [place] LENS) Ear: Normal Nose: Normal Throat: Normal Respiratory: Normal Cardiovascular: Normal : Normal Auscultation: Bowel Sounds: Normal Tenderness: Normal Skin: Wound Musculoskeletal: Leg (LEFT LOWER EXTREMITY WOUND WITH LOCALIZED REDNESS, PURULENT D/C, TENDER), Swelling, Tender Psychiatric: Normal Mood Description: Calm Affect: Normal Speech Pattern: Clear, Appropriate - Laboratory and Diagnostics Result Diagrams: 10/30/16 03:55 10/30/16 03:55 Labs: 10/26/16 18:03 Leg - Left Gram Stain - Final 10/26/16 18:03 Leg - Left Wound Culture - Final Enterococcus Faecalis 10/26/16 17:25 Blood Blood Culture - Preliminary 10/26/16 17:20 Blood Blood Culture - Preliminary Laboratory WBC 5.6 X10^3/uL (3.6-10.0) 10/30/16 03:55 RBC 2.18 X10^6/uL (3.5-5.4) L 10/30/16 03:55 Hgb 6.8 g/dL (12.0-16.0) L* 10/30/16 03:55 Hct 21.0 % (36.0-47.0) L 10/30/16 03:55 MCV 96.5 fL (80.0-100.0) 10/30/16 03:55 MCH 31.4 pg (27.0-34.0) 10/30/16 03:55 MCHC 32.5 g/dL (33.0-35.0) L 10/30/16 03:55 RDW 17.0 % (11.6-16.5) H 10/30/16 03:55 Plt Count 143 X10^3/uL (150.0-450.0) L 10/30/16 03:55 Plt Count Comment Adequate (ADEQUATE) 10/30/16 03:55 MPV 10.4 fL (7.4-11.0) 10/30/16 03:55 Neut % 60.9 % (42.0-75.0) 10/30/16 03:55 Lymph % 25.3 % (21.0-51.0) 10/30/16 03:55 [place] % 8.5 % (0.0-13.0) 10/30/16 03:55 Eos % 3.3 % (0.9-2.9) H 10/30/16 03:55 Baso % 2.0 % (0.2-1.0) H 10/30/16 03:55 Neut # 3.1 x10^3/uL (2.2-4.8) 10/30/16 03:55 Lymph # 1.3 X10^3/uL (1.3-2.9) 10/30/16 03:55 [place] # 0.4 x10^3/uL (0.3-0.8) 10/30/16 03:55 Eos # 0.2 x10^3/uL (0.0-0.2) 10/30/16 03:55 Baso # 0.1 X10^3/uL (0.0-0.1) 10/30/16 03:55 Absolute Nucleated RBC 0.1 /100WBC 10/30/16 03:55 Plt Morphology Comment Normal (NORMAL) 10/30/16 03:55 RBC Morphology Abnormal (NORMAL) A 10/30/16 03:55 Hypochromasia 1+ A 10/30/16 03:55 Anisocytosis Slight A 10/30/16 03:55 Microcytosis Slight A 10/28/16 04:25 Macrocytosis Slight A 10/28/16 04:25 ESR 58 MM/HOUR (0-20) H 10/26/16 17:20 Sodium 141 mmol/L (136-145) 10/30/16 03:55 Corrected Sodium 142 mmol/L (136-145) 10/30/16 03:55 Potassium 5.1 mmol/L (3.5-5.1) 10/30/16 03:55 Chloride 110 mmol/L (98-107) H 10/30/16 03:55 Carbon Dioxide 21.2 mmol/L (21-32) 10/30/16 03:55 BUN 27 mg/dL (7-18) H 10/30/16 03:55 Creatinine 2.39 mg/dL (0.55-1.02) H 10/30/16 03:55 Est GFR (MDRD) Af Amer 29 (>60) L 10/30/16 03:55 Est GFR (MDRD) Non-Af 24 (>60) L 10/30/16 03:55 Glucose 141 mg/dL (65-99) H 10/30/16 03:55 Calcium 7.8 mg/dL (8.5-10.1) L 10/30/16 03:55 Corrected Calcium 8.7 mg/dL (8.5-10.1) 10/30/16 03:55 Magnesium 2.2 mg/dL (1.7-2.9) 10/28/16 04:25 Iron 57 ug/dL (50-175) 10/28/16 04:25 Transferrin 148 mg/dL (202-364) L 10/28/16 04:25 Ferritin 348 ng/mL (8-252) H 10/28/16 04:25 Total Bilirubin 0.20 mg/dL (0.2-1.0) 10/30/16 03:55 AST 15 Units/L (15-37) 10/30/16 03:55 ALT 17 Units/L (12-78) 10/30/16 03:55 Alkaline Phosphatase 83 Units/L (46-116) 10/30/16 03:55 C-Reactive Protein 5.40 mg/L (0-3.0) H 10/26/16 17:20 Total Protein 6.4 g/dL (6.4-8.2) 10/30/16 03:55 Albumin 2.9 g/dL (3.4-5.0) L 10/30/16 03:55 Globulin 3.5 g/dL (2.5-4.5) 10/30/16 03:55 Albumin/Globulin Ratio 0.8 Ratio (1.1-2.1) L 10/30/16 03:55 Vitamin B12 270 pg/mL (193-986) 10/28/16 04:25 Folate 4.7 ng/mL (>8.6) L 10/28/16 04:25 Specimen Type Random urine 10/26/16 21:39 Urine Color Yellow (YELLOW) 10/26/16 21:39 Urine Appearance Cloudy (CLEAR) 10/26/16 21:39 Urine pH 5.0 (5.0 - 8.0) 10/26/16 21:39 Ur Specific [place] 1.020 (1.000-1.030) 10/26/16 21:39 Urine Protein 4+ (NEGATIVE) 10/26/16 21:39 Urine Glucose (UA) 2+ (NEGATIVE) 10/26/16 21:39 Urine Ketones Negative (NEGATIVE) 10/26/16 21:39 Urine Occult Blood 5+ (NEGATIVE) 10/26/16 21:39 Urine Nitrite Negative (NEGATIVE) 10/26/16 21:39 Urine Bilirubin Negative (NEGATIVE) 10/26/16 21:39 Urine Urobilinogen Normal (NORMAL) 10/26/16 21:39 Ur Leukocyte Esterase 2+ (NEGATIVE) 10/26/16 21:39 Urine RBC 20-30 /HPF (NEGATIVE) 10/26/16 21:39 Urine WBC 60-80 /HPF (NEGATIVE) 10/26/16 21:39 Ur Squamous Epith Cells Numerous /HPF (NEGATIVE) 10/26/16 21:39 Urine Bacteria 1+ /HPF (NEGATIVE) 10/26/16 21:39 Ur Culture Indicated? No/not ordered 10/26/16 21:39 Blood Type A POSITIVE 10/28/16 10:55 Antibody Screen Negative 10/28/16 10:55 Crossmatch See Detail 10/28/16 10:55 - Plan (1) Lower extremity cellulitis Status: Inactive Qualifiers: Laterality: left Qualified Code(s): L03.116 - Cellulitis of left lower limb Plan: CONTINUE IV TEFLERO, LEVAQUIN IV. IV HYDRATION, WOUND CARE. REPEAT AM LABS (2) Nausea & vomiting Status: Inactive Qualifiers: Vomiting type: V Vomiting Intractability: V Plan: NAUSEA CONTROL, IV HYDRATION (3) CAD (coronary artery disease) Status: Chronic Qualifiers: Coronary Disease-Associated Artery/Lesion type: C [place] vs. transplanted heart: N Associated angina: A (4) Chronic kidney disease (CKD) Status: Chronic Qualifiers: Chronic kidney disease stage: stage 3 (moderate) Qualified Code(s): N18.3 - Chronic kidney disease, stage 3 (moderate) (5) Diabetes mellitus Status: Chronic Qualifiers: Diabetes mellitus type: D Diabetes mellitus complication status: D Diabetes mellitus complication detail: D Diabetic retinopathy severity: D Proliferative retinopathy type: P Diabetes mellitus macular edema: D Diabetes mellitus fci insulin use: D Laterality: L Chronic kidney disease stage: C Plan: SSI (6) GERD (gastroesophageal reflux disease) Status: Chronic Qualifiers: Esophagitis presence: E (7) Anemia Status: Acute Qualifiers: Anemia type: A Iron deficiency anemia type: I Vitamin B12 deficiency anemia type: V Folate deficiency anemia type: F Bone marrow failure anemia type: B Hemolytic anemia type: H Other causes of anemia: O Plan: CHECK H/H Q6H, TRANSFUSE FOR HGB LESS THAN 7, MONITOR.
[2016-10-30] MEDS: TOPAMAX PO SCH (21:00)
[2016-10-30] MEDS: LIPITOR TAB 20 MG PO SCH (21:01)
[2016-10-30] MEDS: SNACK - Diabetic Appropriate PO SCH (21:02)
[2016-10-31 04:00] LABS: BASOPHILS # (AUTO) 0.1 X10^3/uL (0.0-0.1); BASOPHILS % (AUTO) 2.7 % (0.2-1.0); EOSINOPHILS # (AUTO) 0.2 x10^3/uL (0.0-0.2); EOSINOPHILS % (AUTO) 3.8 % (0.9-2.9); HEMATOCRIT 27.9 % (36.0-47.0); HEMOGLOBIN 9.3 g/dL (12.0-16.0); LYMPHOCYTES # (AUTO) 1.1 X10^3/uL (1.3-2.9); LYMPHOCYTES % (AUTO) 26.4 % (21.0-51.0); MEAN CORPUSCULAR HEMOGLOBIN 31.2 pg (27.0-34.0); MEAN CORPUSCULAR HGB CONC 33.2 g/dL (33.0-35.0); MEAN PLATELET VOLUME 10.1 fL (7.4-11.0); MONOCYTES # (AUTO) 0.3 x10^3/uL (0.3-0.8); MONOCYTES % (AUTO) 8.2 % (0.0-13.0); NEUTROPHILS # (AUTO) 2.4 x10^3/uL (2.2-4.8); NEUTROPHILS % (AUTO) 58.9 % (42.0-75.0); PLATELET COUNT 152 X10^3/uL (150.0-450.0); RED BLOOD COUNT 2.97 X10^6/uL (3.5-5.4); RED CELL DISTRIBUTION WIDTH 16.9 % (11.6-16.5); WHITE BLOOD COUNT 4.1 X10^3/uL (3.6-10.0)
[2016-10-31 04:17] LABS: ALBUMIN 3.1 g/dL (3.4-5.0); CALCIUM 7.8 mg/dL (8.5-10.1); CARBON DIOXIDE 22.9 mmol/L (21-32); COR CA(FOR HYPOALB) 8.5 mg/dL (8.5-10.1); CREATININE 2.5 mg/dL (0.55-1.02); TOTAL PROTEIN 6.8 g/dL (6.4-8.2)
[2016-10-31] MEDS: MORPHINE SULFATE INJ 2 MG IVP PRN ×4 (04:26→22:50)
[2016-10-31] MEDS: NS 1000 ML 1,000 ML IV SCH ×3 (05:53→22:31)
[2016-10-31] MEDS: TEFLARO 600 MG in NS 50 ML IV + SPIKE MINIBAG* 50 ML IV SCH ×2 (08:53→21:23)
[2016-10-31] MEDS: LYRICA CAP 50 MG PO SCH ×2 (08:54→21:23)
[2016-10-31] MEDS: PLAVIX PO SCH (08:54)
[2016-10-31] MEDS: LEVAQUIN PREMIX IV 500 MG 500 MG/100 ML BAG IV SCH (08:54)
[2016-10-31] MEDS: ASPIRIN PO SCH (08:54)
[2016-10-31] MEDS: PROTONIX TAB 40 MG PO SCH (08:54)
[2016-10-31] MEDS: NORCO 10/325 TAB PO PRN ×3 (08:55→21:22)
[2016-10-31] MEDS: CHRONULAC PO SCH (08:55)
[2016-10-31] MEDS: COZAAR PO SCH (08:55)
[2016-10-31] MEDS: LASIX PO SCH (08:55)
[2016-10-31] MEDS: MAG-OX TAB PO SCH (08:55)
[2016-10-31] MEDS: EFFEXOR XR 75 MG CAP PO SCH (08:55)
[2016-10-31] MEDS ORDERED: KAYEXALATE PO SCH (13:00)
--- NOTE | 2016-10-31 19:01 | PCM.PROG ---
Progress Note - Progress Note for Day of Date: 10/31/16 - Subjective Subjective: PATIENT RESTS IN BED AND CONTINUES TO REPORT LLE PAIN. DRESSING TO LLE DRY AND INTACT. WOUND CONTINUES WITH PURULENT DRAINAGE. PATIENT CONTINUES ON IV LEVAQUIN AND TEFLARO FOR LLE WOUND INFECTION FOLLOWING REMOVAL OF HARDWARE BY DR. BASS, ORTHO. CT LLE QUESTIONALBE ABSCESS FORMATION, PLAN TO MRI LLE AND CONSULT KALI. CONTINUE IV ATBX AND REPEAT AM LABS. S/P TRANSFUSION, HGB STABLE - Past Medical Family Social History Past Med/Fam/Surg Hx: No changes since H&P Allergies: Allergies No Known Drug Allergy Allergy (Verified 10/26/16 17:56) - Review of Systems ROS: No change since H&P - Vital Signs and I&O's Vital Signs: Temperature 98.2 F Pulse Rate [Right Brachial] 67 Pulse Rate [Left Brachial] 64 Pulse Rate [Radial] 72 Pulse Rate 65 Respiratory Rate 20 Blood Pressure [Left Arm] 135/75 Blood Pressure [Right Arm] 107/54 Blood Pressure 127/69 O2 Sat by Pulse Oximetry 97 Intake and Output: Intake & Output 10/29/16 10/30/16 10/31/16 11/01/16 11:59 11:59 11:59 11:59 Intake Total 2132 1800 820 460 Output Total 7586 538 1522 800 Balance 682 1200 -480 -340 - Physical Exam Oriented: Normal, Time, Person, Place Eyes: Other (BLINDNESS RIGHT EYE, [place] LENS) Ear: Normal Nose: Normal Throat: Normal Respiratory: Normal Cardiovascular: Normal : Normal Auscultation: Bowel Sounds: Normal Tenderness: Normal Skin: Wound Musculoskeletal: Leg (LEFT LOWER EXTREMITY WOUND WITH LOCALIZED REDNESS, PURULENT D/C, TENDER), Swelling, Tender Psychiatric: Normal Mood Description: Calm Affect: Normal Speech Pattern: Clear, Appropriate - Laboratory and Diagnostics Result Diagrams: 10/31/16 03:30 10/31/16 03:30 Labs: 10/26/16 17:25 Blood Blood Culture - Final 10/26/16 17:20 Blood Blood Culture - Final 10/26/16 18:03 Leg - Left Gram Stain - Final 10/26/16 18:03 Leg - Left Wound Culture - Final Enterococcus Faecalis Laboratory WBC 4.1 X10^3/uL (3.6-10.0) 10/31/16 03:30 RBC 2.97 X10^6/uL (3.5-5.4) L 10/31/16 03:30 Hgb 9.3 g/dL (12.0-16.0) L 10/31/16 03:30 Hct 27.9 % (36.0-47.0) L 10/31/16 03:30 MCV 94.0 fL (80.0-100.0) 10/31/16 03:30 MCH 31.2 pg (27.0-34.0) 10/31/16 03:30 MCHC 33.2 g/dL (33.0-35.0) 10/31/16 03:30 RDW 16.9 % (11.6-16.5) H 10/31/16 03:30 Plt Count 152 X10^3/uL (150.0-450.0) 10/31/16 03:30 Plt Count Comment Adequate (ADEQUATE) 10/30/16 03:55 MPV 10.1 fL (7.4-11.0) 10/31/16 03:30 Neut % 58.9 % (42.0-75.0) 10/31/16 03:30 Lymph % 26.4 % (21.0-51.0) 10/31/16 03:30 [place] % 8.2 % (0.0-13.0) 10/31/16 03:30 Eos % 3.8 % (0.9-2.9) H 10/31/16 03:30 Baso % 2.7 % (0.2-1.0) H 10/31/16 03:30 Neut # 2.4 x10^3/uL (2.2-4.8) 10/31/16 03:30 Lymph # 1.1 X10^3/uL (1.3-2.9) L 10/31/16 03:30 [place] # 0.3 x10^3/uL (0.3-0.8) 10/31/16 03:30 Eos # 0.2 x10^3/uL (0.0-0.2) 10/31/16 03:30 Baso # 0.1 X10^3/uL (0.0-0.1) 10/31/16 03:30 Absolute Nucleated RBC 0.0 /100WBC 10/31/16 03:30 Plt Morphology Comment Normal (NORMAL) 10/30/16 03:55 RBC Morphology Abnormal (NORMAL) A 10/30/16 03:55 Hypochromasia 1+ A 10/30/16 03:55 Anisocytosis Slight A 10/30/16 03:55 Microcytosis Slight A 10/28/16 04:25 Macrocytosis Slight A 10/28/16 04:25 ESR 58 MM/HOUR (0-20) H 10/26/16 17:20 Sodium 143 mmol/L (136-145) 10/31/16 03:30 Corrected Sodium 144 mmol/L (136-145) 10/31/16 03:30 Potassium 6.0 mmol/L (3.5-5.1) H* 10/31/16 03:30 Chloride 112 mmol/L (98-107) H 10/31/16 03:30 Carbon Dioxide 22.9 mmol/L (21-32) 10/31/16 03:30 BUN 27 mg/dL (7-18) H 10/31/16 03:30 Creatinine 2.50 mg/dL (0.55-1.02) H 10/31/16 03:30 Est GFR (MDRD) Af Amer 28 (>60) L 10/31/16 03:30 Est GFR (MDRD) Non-Af 23 (>60) L 10/31/16 03:30 Glucose 144 mg/dL (65-99) H 10/31/16 03:30 Calcium 7.8 mg/dL (8.5-10.1) L 10/31/16 03:30 Corrected Calcium 8.5 mg/dL (8.5-10.1) 10/31/16 03:30 Magnesium 2.2 mg/dL (1.7-2.9) 10/28/16 04:25 Iron 57 ug/dL (50-175) 10/28/16 04:25 Transferrin 148 mg/dL (202-364) L 10/28/16 04:25 Ferritin 348 ng/mL (8-252) H 10/28/16 04:25 Total Bilirubin 0.70 mg/dL (0.2-1.0) 10/31/16 03:30 AST 11 Units/L (15-37) L 10/31/16 03:30 ALT 18 Units/L (12-78) 10/31/16 03:30 Alkaline Phosphatase 87 Units/L (46-116) 10/31/16 03:30 C-Reactive Protein 5.40 mg/L (0-3.0) H 10/26/16 17:20 Total Protein 6.8 g/dL (6.4-8.2) 10/31/16 03:30 Albumin 3.1 g/dL (3.4-5.0) L 10/31/16 03:30 Globulin 3.7 g/dL (2.5-4.5) 10/31/16 03:30 Albumin/Globulin Ratio 0.8 Ratio (1.1-2.1) L 10/31/16 03:30 Vitamin B12 270 pg/mL (193-986) 10/28/16 04:25 Folate 4.7 ng/mL (>8.6) L 10/28/16 04:25 Specimen Type Random urine 10/26/16 21:39 Urine Color Yellow (YELLOW) 10/26/16 21:39 Urine Appearance Cloudy (CLEAR) 10/26/16 21:39 Urine pH 5.0 (5.0 - 8.0) 10/26/16 21:39 Ur Specific [place] 1.020 (1.000-1.030) 10/26/16 21:39 Urine Protein 4+ (NEGATIVE) 10/26/16 21:39 Urine Glucose (UA) 2+ (NEGATIVE) 10/26/16 21:39 Urine Ketones Negative (NEGATIVE) 10/26/16 21:39 Urine Occult Blood 5+ (NEGATIVE) 10/26/16 21:39 Urine Nitrite Negative (NEGATIVE) 10/26/16 21:39 Urine Bilirubin Negative (NEGATIVE) 10/26/16 21:39 Urine Urobilinogen Normal (NORMAL) 10/26/16 21:39 Ur Leukocyte Esterase 2+ (NEGATIVE) 10/26/16 21:39 Urine RBC 20-30 /HPF (NEGATIVE) 10/26/16 21:39 Urine WBC 60-80 /HPF (NEGATIVE) 10/26/16 21:39 Ur Squamous Epith Cells Numerous /HPF (NEGATIVE) 10/26/16 21:39 Urine Bacteria 1+ /HPF (NEGATIVE) 10/26/16 21:39 Ur Culture Indicated? No/not ordered 10/26/16 21:39 Blood Type A POSITIVE 10/28/16 10:55 Antibody Screen Negative 10/28/16 10:55 Crossmatch See Detail 10/28/16 10:55 - Plan (1) Lower extremity cellulitis Status: Inactive Qualifiers: Laterality: left Qualified Code(s): L03.116 - Cellulitis of left lower limb Plan: CONTINUE IV TEFLERO, LEVAQUIN IV. IV HYDRATION, WOUND CARE. REPEAT AM LABS (2) Nausea & vomiting Status: Inactive Qualifiers: Vomiting type: V Vomiting Intractability: V Plan: NAUSEA CONTROL, IV HYDRATION (3) CAD (coronary artery disease) Status: Chronic Qualifiers: Coronary Disease-Associated Artery/Lesion type: C [place] vs. transplanted heart: N Associated angina: A (4) Chronic kidney disease (CKD) Status: Chronic Qualifiers: Chronic kidney disease stage: stage 3 (moderate) Qualified Code(s): N18.3 - Chronic kidney disease, stage 3 (moderate) (5) Diabetes mellitus Status: Chronic Qualifiers: Diabetes mellitus type: D Diabetes mellitus complication status: D Diabetes mellitus complication detail: D Diabetic retinopathy severity: D Proliferative retinopathy type: P Diabetes mellitus macular edema: D Diabetes mellitus long term care pharmacist insulin use: D Laterality: L Chronic kidney disease stage: C Plan: SSI (6) GERD (gastroesophageal reflux disease) Status: Chronic Qualifiers: Esophagitis presence: E (7) Anemia Status: Acute Qualifiers: Anemia type: A Iron deficiency anemia type: I Vitamin B12 deficiency anemia type: V Folate deficiency anemia type: F Bone marrow failure anemia type: B Hemolytic anemia type: H Other causes of anemia: O Plan: S/P TRANSFUSION, HGB 9.3 THIS AM. REPEAT AM LABS
[2016-10-31 19:06] LABS: CALCIUM 7.9 mg/dL (8.5-10.1); CREATININE 2.5 mg/dL (0.55-1.02)
[2016-10-31] MEDS: TOPAMAX PO SCH (21:23)
[2016-10-31] MEDS: KAYEXALATE PO SCH (21:24)
[2016-10-31] MEDS: LIPITOR TAB 20 MG PO SCH (21:24)
[2016-10-31] MEDS: SNACK - Diabetic Appropriate PO SCH (21:32)
[2016-11-01] MEDS: KAYEXALATE PO SCH ×2 (02:54→08:47)
[2016-11-01] MEDS: MORPHINE SULFATE INJ 2 MG IVP PRN ×3 (04:54→18:37)
[2016-11-01 06:12] LABS: ALBUMIN 3.2 g/dL (3.4-5.0); CARBON DIOXIDE 19.8 mmol/L (21-32); COR CA(FOR HYPOALB) 8.6 mg/dL (8.5-10.1); CREATININE 2.32 mg/dL (0.55-1.02); TOTAL PROTEIN 6.8 g/dL (6.4-8.2)
[2016-11-01 06:19] LABS: BASOPHILS # (AUTO) 0.1 X10^3/uL (0.0-0.1); EOSINOPHILS # (AUTO) 0.1 x10^3/uL (0.0-0.2); EOSINOPHILS % (AUTO) 3.1 % (0.9-2.9); HEMATOCRIT 29.2 % (36.0-47.0); HEMOGLOBIN 9.6 g/dL (12.0-16.0); LYMPHOCYTES % (AUTO) 26.2 % (21.0-51.0); MEAN CORPUSCULAR HGB CONC 32.8 g/dL (33.0-35.0); MEAN CORPUSCULAR VOLUME 94.3 fL (80.0-100.0); MEAN PLATELET VOLUME 10.1 fL (7.4-11.0); MONOCYTES # (AUTO) 0.3 x10^3/uL (0.3-0.8); MONOCYTES % (AUTO) 8.1 % (0.0-13.0); NEUTROPHILS # (AUTO) 2.3 x10^3/uL (2.2-4.8); NEUTROPHILS % (AUTO) 60.6 % (42.0-75.0); PLATELET COUNT 144 X10^3/uL (150.0-450.0); RED CELL DISTRIBUTION WIDTH 16.3 % (11.6-16.5); WHITE BLOOD COUNT 3.9 X10^3/uL (3.6-10.0)
[2016-11-01] MEDS: TEFLARO 600 MG in NS 50 ML IV + SPIKE MINIBAG* 50 ML IV SCH ×2 (08:46→21:03)
[2016-11-01] MEDS: LEVAQUIN PREMIX IV 500 MG 500 MG/100 ML BAG IV SCH (08:46)
[2016-11-01] MEDS: EFFEXOR XR 75 MG CAP PO SCH (08:47)
[2016-11-01] MEDS: CHRONULAC PO SCH (08:47)
[2016-11-01] MEDS: COLACE CAP 100 MG PO PRN ×2 (08:47→08:51)
[2016-11-01] MEDS: LASIX PO SCH (08:48)
[2016-11-01] MEDS: COZAAR PO SCH (08:48)
[2016-11-01] MEDS: ASPIRIN PO SCH (08:48)
[2016-11-01] MEDS: LYRICA CAP 50 MG PO SCH ×2 (08:48→21:03)
[2016-11-01] MEDS: PROTONIX TAB 40 MG PO SCH (08:48)
[2016-11-01] MEDS: PLAVIX PO SCH (08:48)
[2016-11-01] MEDS: MAG-OX TAB PO SCH (08:48)
[2016-11-01] MEDS: NORCO 10/325 TAB PO PRN ×3 (08:49→21:33)
--- NOTE | 2016-11-01 11:38 | MRI ---
History: Left ankle pain. Status post hardware removal. Technique: Multiplanar, multi sequence MR imaging of the left ankle was performed without contrast. Comparison: Left foreleg radiographs dated 10/26/2016, 04/19/2016 Findings: Within the distal tibia, there are multiple tracts extending through the medullary cavity and throug h the lateral cortex compatible with hardware tracts. The lateral plate and screw fixation of the di stal tibia has been removed since the March 2016 radiographs. There is an oblique fracture through the medial aspect of the distal tibia and posterior malleolus w ith up to 8 mm posterior displacement of the distal fragment . There is no significant edema within the distal fragment , with some ossification and low signal material within the fracture defect sugg esting chronic fracture with delayed union. There is increased T2 signal within the distal tibial medullary cavity proximal to the fracture milka uring up to 4.4 cm in craniocaudal dimension. The increased signal is in continuity through the dist al most medial surgical defect as demonstrated on axial T2 fat sat image 18 and coronal T2 fat sat i mage 10. Largest focal collection of T2 signal abnormality measures up to 1.7 x 0.6 cm extending int o the distal tibia. This T2 signal extends into the adjacent subcutaneous adipose tissue, where ther e is adjacent subcutaneous edema. T2 signal abnormality extends superiorly along the anteromedial co rtex of the distal tibia and is in continuity with the anterior tibialis tendon, which demonstrates an abnormal thickened appearance with increased signal and fluid in the adjacent synovial sheath. Th ere is suggestion of an overlying skin defect superficial to the anterior tibialis tendon as seen on axial T2 fat sat images 9 series 501. There is a partial thickness tear of the anterior tibialis te ndon at this level which may be exposed through the soft tissue defect. Clinical correlation is requ ired. There is an abnormal appearance of the adjacent extensor hallucis longus tendon which is also involves with surrounding edema and fluid. There is motion artifact demonstrated on the axial images which limits evaluation of the ligamentous structures of the ankle. There is a small amount of tibiotalar joint fluid which is nonspecific and within normal limits for physiologic volume. The anterior and posterior syndesmotic ligaments are n ot well demonstrated and likely torn. Anterior talofibular ligament, calcaneofibular ligament and po sterior talofibular ligaments appear grossly intact. Impression: 1. Status post removal of lateral plate and screw fixation of the distal tibial fracture as discusse d above. Within the medullary cavity of the tibia proximal to the fracture line, there is bone marro w edema and increased T2 signal mature which extends through the distal most tibial screw tract, com municating with fluid and/or granulation tissue /phlegmonous change along the anteromedial aspect of the distal tibia. These findings are consistent with osteomyelitis with a sinus tract extending int o the adjacent soft tissues. 2. The above described fluid or granulation tissue/phlegmonous change tracks superiorly along the an teromedial aspect of the distal tibia and is in continuity with/enveloping the anterior tibialis and extensor hallucis longus tendons. Please note that is difficult to distinguish granulation tissue/p hlegmon from organized fluid given the lack of IV contrast. This T2 signal abnormality tracks to the skin surface where there is suggestion of an overlying soft tissue defect. 3. Tenosynovitis of the anterior tibialis and extensor hallucis longus tendons which appear thickene d and partially torn. There is suggestion of a soft tissue defect overlying these tendons. Clinical correlation is required. 4. Oblique, minimally displaced fracture of the distal tibia as discussed above, with findings sugge sting delayed union. 5. Other findings as above Reported By:
[2016-11-01] MEDS: NS 1000 ML 1,000 ML IV SCH (13:36)
--- NOTE | 2016-11-01 14:30 | PCM.PROG ---
Progress Note - Progress Note for Day of Date: 11/01/16 - Subjective Subjective: PATIENT RESTS IN BED AND CONTINUES TO REPORT LLE PAIN. DRESSING TO LLE DRY AND INTACT. PATIENT CONTINUES ON IV LEVAQUIN AND TEFLARO FOR LLE WOUND INFECTION FOLLOWING REMOVAL OF HARDWARE BY DR. BASS, ORTHO. CT LLE QUESTIONALBE ABSCESS FORMATION, MRI REPORT FAXED TO DR BASS, WILL ARRANGE FOLLOW UP APPT PRIOR TO D/C K 5,7 THIS AM REPEAT KAEXALATE AND BMP THIS AFTERNOON, WILL D/C HOME WHEN STABLE - Past Medical Family Social History Past Med/Fam/Surg Hx: No changes since H&P Allergies: Allergies No Known Drug Allergy Allergy (Verified 10/26/16 17:56) - Review of Systems ROS: No change since H&P - Vital Signs and I&O's Vital Signs: Temperature 98.3 F Pulse Rate [Right Brachial] 61 Pulse Rate [Left Brachial] 68 Pulse Rate [Radial] 72 Pulse Rate 65 Respiratory Rate 20 Blood Pressure [Left Arm] 155/72 Blood Pressure [Right Arm] 107/54 Blood Pressure 127/69 O2 Sat by Pulse Oximetry 97 Intake and Output: Intake & Output 10/30/16 10/31/16 11/01/16 11/02/16 11:59 11:59 11:59 11:59 Intake Total 2407 473 6721 Output Total 600 1300 3800 Balance 1200 -480 -2555 - Physical Exam Oriented: Normal, Time, Person, Place Eyes: Other (BLINDNESS RIGHT EYE, [place] LENS) Ear: Normal Nose: Normal Throat: Normal Respiratory: Normal Cardiovascular: Normal : Normal Auscultation: Bowel Sounds: Normal Tenderness: Normal Skin: Wound Musculoskeletal: Leg (LEFT LOWER EXTREMITY WOUND WITH LOCALIZED REDNESS, PURULENT D/C, TENDER), Swelling, Tender Psychiatric: Normal Mood Description: Calm Affect: Normal Speech Pattern: Clear, Appropriate - Laboratory and Diagnostics Result Diagrams: 11/01/16 04:15 11/01/16 04:15 Labs: 10/26/16 17:25 Blood Blood Culture - Final 10/26/16 17:20 Blood Blood Culture - Final 10/26/16 18:03 Leg - Left Gram Stain - Final 10/26/16 18:03 Leg - Left Wound Culture - Final Enterococcus Faecalis Laboratory WBC 3.9 X10^3/uL (3.6-10.0) 11/01/16 04:15 RBC 3.10 X10^6/uL (3.5-5.4) L 11/01/16 04:15 Hgb 9.6 g/dL (12.0-16.0) L 11/01/16 04:15 Hct 29.2 % (36.0-47.0) L 11/01/16 04:15 MCV 94.3 fL (80.0-100.0) 11/01/16 04:15 MCH 31.0 pg (27.0-34.0) 11/01/16 04:15 MCHC 32.8 g/dL (33.0-35.0) L 11/01/16 04:15 RDW 16.3 % (11.6-16.5) 11/01/16 04:15 Plt Count 144 X10^3/uL (150.0-450.0) L 11/01/16 04:15 Plt Count Comment Adequate (ADEQUATE) 10/30/16 03:55 MPV 10.1 fL (7.4-11.0) 11/01/16 04:15 Neut % 60.6 % (42.0-75.0) 11/01/16 04:15 Lymph % 26.2 % (21.0-51.0) 11/01/16 04:15 [place] % 8.1 % (0.0-13.0) 11/01/16 04:15 Eos % 3.1 % (0.9-2.9) H 11/01/16 04:15 Baso % 2.0 % (0.2-1.0) H 11/01/16 04:15 Neut # 2.3 x10^3/uL (2.2-4.8) 11/01/16 04:15 Lymph # 1.0 X10^3/uL (1.3-2.9) L 11/01/16 04:15 [place] # 0.3 x10^3/uL (0.3-0.8) 11/01/16 04:15 Eos # 0.1 x10^3/uL (0.0-0.2) 11/01/16 04:15 Baso # 0.1 X10^3/uL (0.0-0.1) 11/01/16 04:15 Absolute Nucleated RBC 0.2 /100WBC 11/01/16 04:15 Plt Morphology Comment Normal (NORMAL) 10/30/16 03:55 RBC Morphology Abnormal (NORMAL) A 10/30/16 03:55 Hypochromasia 1+ A 10/30/16 03:55 Anisocytosis Slight A 10/30/16 03:55 Microcytosis Slight A 10/28/16 04:25 Macrocytosis Slight A 10/28/16 04:25 ESR 58 MM/HOUR (0-20) H 10/26/16 17:20 Sodium 143 mmol/L (136-145) 11/01/16 04:15 Corrected Sodium 144 mmol/L (136-145) 11/01/16 04:15 Potassium 5.7 mmol/L (3.5-5.1) H 11/01/16 04:15 Chloride 112 mmol/L (98-107) H 11/01/16 04:15 Carbon Dioxide 19.8 mmol/L (21-32) L 11/01/16 04:15 BUN 25 mg/dL (7-18) H 11/01/16 04:15 Creatinine 2.32 mg/dL (0.55-1.02) H 11/01/16 04:15 Est GFR (MDRD) Af Amer 30 (>60) L 11/01/16 04:15 Est GFR (MDRD) Non-Af 25 (>60) L 11/01/16 04:15 Glucose 131 mg/dL (65-99) H 11/01/16 04:15 Calcium 8.0 mg/dL (8.5-10.1) L 11/01/16 04:15 Corrected Calcium 8.6 mg/dL (8.5-10.1) 11/01/16 04:15 Magnesium 2.2 mg/dL (1.7-2.9) 10/28/16 04:25 Iron 57 ug/dL (50-175) 10/28/16 04:25 Transferrin 148 mg/dL (202-364) L 10/28/16 04:25 Ferritin 348 ng/mL (8-252) H 10/28/16 04:25 Total Bilirubin 0.50 mg/dL (0.2-1.0) 11/01/16 04:15 AST 14 Units/L (15-37) L 11/01/16 04:15 ALT 21 Units/L (12-78) 11/01/16 04:15 Alkaline Phosphatase 83 Units/L (46-116) 11/01/16 04:15 C-Reactive Protein 5.40 mg/L (0-3.0) H 10/26/16 17:20 Total Protein 6.8 g/dL (6.4-8.2) 11/01/16 04:15 Albumin 3.2 g/dL (3.4-5.0) L 11/01/16 04:15 Globulin 3.6 g/dL (2.5-4.5) 11/01/16 04:15 Albumin/Globulin Ratio 0.9 Ratio (1.1-2.1) L 11/01/16 04:15 Vitamin B12 270 pg/mL (193-986) 10/28/16 04:25 Folate 4.7 ng/mL (>8.6) L 10/28/16 04:25 Specimen Type Random urine 10/26/16 21:39 Urine Color Yellow (YELLOW) 10/26/16 21:39 Urine Appearance Cloudy (CLEAR) 10/26/16 21:39 Urine pH 5.0 (5.0 - 8.0) 10/26/16 21:39 Ur Specific [place] 1.020 (1.000-1.030) 10/26/16 21:39 Urine Protein 4+ (NEGATIVE) 10/26/16 21:39 Urine Glucose (UA) 2+ (NEGATIVE) 10/26/16 21:39 Urine Ketones Negative (NEGATIVE) 10/26/16 21:39 Urine Occult Blood 5+ (NEGATIVE) 10/26/16 21:39 Urine Nitrite Negative (NEGATIVE) 10/26/16 21:39 Urine Bilirubin Negative (NEGATIVE) 10/26/16 21:39 Urine Urobilinogen Normal (NORMAL) 10/26/16 21:39 Ur Leukocyte Esterase 2+ (NEGATIVE) 10/26/16 21:39 Urine RBC 20-30 /HPF (NEGATIVE) 10/26/16 21:39 Urine WBC 60-80 /HPF (NEGATIVE) 10/26/16 21:39 Ur Squamous Epith Cells Numerous /HPF (NEGATIVE) 10/26/16 21:39 Urine Bacteria 1+ /HPF (NEGATIVE) 10/26/16 21:39 Ur Culture Indicated? No/not ordered 10/26/16 21:39 Blood Type A POSITIVE 10/28/16 10:55 Antibody Screen Negative 10/28/16 10:55 Crossmatch See Detail 10/28/16 10:55 - Plan (1) Lower extremity cellulitis Status: Inactive Qualifiers: Laterality: left Qualified Code(s): L03.116 - Cellulitis of left lower limb Plan: CONTINUE IV TEFLERO, LEVAQUIN IV. IV HYDRATION, WOUND CARE. REPEAT AM LABS (2) Nausea & vomiting Status: Inactive Qualifiers: Vomiting type: V Vomiting Intractability: V Plan: NAUSEA CONTROL, IV HYDRATION (3) CAD (coronary artery disease) Status: Chronic Qualifiers: Coronary Disease-Associated Artery/Lesion type: C [place] vs. transplanted heart: N Associated angina: A (4) Chronic kidney disease (CKD) Status: Chronic Qualifiers: Chronic kidney disease stage: stage 3 (moderate) Qualified Code(s): N18.3 - Chronic kidney disease, stage 3 (moderate) Plan: MONITOR I & OS, (5) Diabetes mellitus Status: Chronic Qualifiers: Diabetes mellitus type: D Diabetes mellitus complication status: D Diabetes mellitus complication detail: D Diabetic retinopathy severity: D Proliferative retinopathy type: P Diabetes mellitus macular edema: D Diabetes mellitus nursing home insulin use: D Laterality: L Chronic kidney disease stage: C Plan: SSI (6) GERD (gastroesophageal reflux disease) Status: Chronic Qualifiers: Esophagitis presence: E (7) Anemia Status: Acute Qualifiers: Anemia type: A Iron deficiency anemia type: I Vitamin B12 deficiency anemia type: V Folate deficiency anemia type: F Bone marrow failure anemia type: B Hemolytic anemia type: H Other causes of anemia: O Plan: S/P TRANSFUSION, HGB STABLE THIS THIS AM (8) Hyperkalemia Status: Acute Plan: HS RENAL FAILURE, CONTINUE ORAL HYDRATION. KAEXALATE PO , REPEAT BMP THIS AFTERNOON
[2016-11-01 17:24] LABS: CARBON DIOXIDE 22.9 mmol/L (21-32); CREATININE 2.3 mg/dL (0.55-1.02)
[2016-11-01] MEDS: TOPAMAX PO SCH (21:03)
[2016-11-01] MEDS: LIPITOR TAB 20 MG PO SCH (21:03)
[2016-11-01] MEDS: SNACK - Diabetic Appropriate PO SCH (21:36)
[2016-11-02] MEDS: MORPHINE SULFATE INJ 2 MG IVP PRN ×2 (02:04→08:59)
[2016-11-02] MEDS: NS 1000 ML 1,000 ML IV SCH (02:06)
[2016-11-02] MEDS: NORCO 10/325 TAB PO PRN (04:58)
[2016-11-02 06:20] LABS: BASOPHILS # (AUTO) 0.1 X10^3/uL (0.0-0.1); BASOPHILS % (AUTO) 1.4 % (0.2-1.0); EOSINOPHILS # (AUTO) 0.2 x10^3/uL (0.0-0.2); EOSINOPHILS % (AUTO) 3.7 % (0.9-2.9); HEMATOCRIT 29.4 % (36.0-47.0); HEMOGLOBIN 9.8 g/dL (12.0-16.0); LYMPHOCYTES # (AUTO) 1.1 X10^3/uL (1.3-2.9); LYMPHOCYTES % (AUTO) 23.1 % (21.0-51.0); MEAN CORPUSCULAR HEMOGLOBIN 31.2 pg (27.0-34.0); MEAN CORPUSCULAR HGB CONC 33.5 g/dL (33.0-35.0); MEAN CORPUSCULAR VOLUME 93.4 fL (80.0-100.0); MEAN PLATELET VOLUME 10.3 fL (7.4-11.0); MONOCYTES # (AUTO) 0.4 x10^3/uL (0.3-0.8); MONOCYTES % (AUTO) 8.7 % (0.0-13.0); NEUTROPHILS # (AUTO) 2.9 x10^3/uL (2.2-4.8); NEUTROPHILS % (AUTO) 63.1 % (42.0-75.0); PLATELET COUNT 157 X10^3/uL (150.0-450.0); RED BLOOD COUNT 3.15 X10^6/uL (3.5-5.4); WHITE BLOOD COUNT 4.7 X10^3/uL (3.6-10.0)
[2016-11-02 06:34] LABS: ALANINE AMINOTRANSFERASE 19 Units/L (12-78); ALBUMIN 3.2 g/dL (3.4-5.0); ALKALINE PHOSPHATASE 87 Units/L (46-116); ASPARTATE AMINO TRANSFERASE 13 Units/L (15-37); BLOOD UREA NITROGEN 22 mg/dL (7-18); CARBON DIOXIDE 22.6 mmol/L (21-32); CHLORIDE 112 mmol/L (98-107); COR CA(FOR HYPOALB) 8.6 mg/dL (8.5-10.1); CREATININE 2.08 mg/dL (0.55-1.02); GLUCOSE 109 mg/dL (65-99); SODIUM 144 mmol/L (136-145); TOTAL PROTEIN 6.8 g/dL (6.4-8.2); eGFR BLACK RACES 34 (>60); eGFR NON BLACK RACES 28 (>60)
[2016-11-02] MEDS: LEVAQUIN PREMIX IV 500 MG 500 MG/100 ML BAG IV SCH (08:59)
[2016-11-02] MEDS: TEFLARO 600 MG in NS 50 ML IV + SPIKE MINIBAG* 50 ML IV SCH (08:59)
[2016-11-02] MEDS: CHRONULAC PO SCH (09:00)
[2016-11-02] MEDS: PLAVIX PO SCH (09:01)
[2016-11-02] MEDS: COZAAR PO SCH (09:02)
[2016-11-02] MEDS: ASPIRIN PO SCH (09:02)
[2016-11-02] MEDS: MAG-OX TAB PO SCH (09:02)
[2016-11-02] MEDS: EFFEXOR XR 75 MG CAP PO SCH (09:04)
[2016-11-02] MEDS: LASIX PO SCH (09:04)
[2016-11-02] MEDS: PROTONIX TAB 40 MG PO SCH (09:04)
[2016-11-02] MEDS: LYRICA CAP 50 MG PO SCH (09:04)
[2016-11-02 12:29] VITALS: BP 167/76
== END 2016-11-02 12:15 | disposition home or self-care (01) | DRG 863 ==
LOC: MED/SURG 15:57 → OBSVTOIN 10-28 09:00
PROVIDERS: ADMIT Internal Medicine; ATTEND Internal Medicine
PROC: 30233N1 Transfusion of Nonautologous Red Blood Cells into Peripheral Vein, Percutaneous Approach (ICD-10-PCS; principal; 2016-10-30)
PROC: 30233N1 Transfusion of Nonautologous Red Blood Cells into Peripheral Vein, Percutaneous Approach (ICD-10-PCS; 2016-10-30)
DX: T81.4XXA Infection following a procedure, initial encounter (principal); L03.116 Cellulitis of left lower limb; D64.89 Other specified anemias; R51 Headache; I25.10 Atherosclerotic heart disease of native coronary artery without angina pectoris; E11.65 Type 2 diabetes mellitus with hyperglycemia; R11.2 Nausea with vomiting, unspecified; N18.3 Chronic kidney disease, stage 3 (moderate); Z89.511 Acquired absence of right leg below knee; B95.2 Enterococcus as the cause of diseases classified elsewhere; E87.5 Hyperkalemia
CPT/HCPCS: 36415; 36430; 73590; 73721; 80048; 80053; 81001; 82607; 82728; 82746; 83540; 83735; 84132; 84466; 85014; 85018; 85025; 85652; 86140; 86850; 86900; 86901; 86922; 87040; 87070; 87075; 87077; 87186; 87205; A4222; P9016; G0378; J0712; J1200; J1815; J1956; J2270; J7613

== ENCOUNTER 2016-11-25 19:56 | Emergency (ER) | payer OTHER, MEDICAID ==
[2016-11-25 20:19] VITALS: BP 120/81
[2016-11-25 21:37] LABS: BASOPHILS # (AUTO) 0.1 X10^3/uL (0.0-0.1); BASOPHILS % (AUTO) 1.1 % (0.2-1.0); EOSINOPHILS # (AUTO) 0.2 x10^3/uL (0.0-0.2); EOSINOPHILS % (AUTO) 2.7 % (0.9-2.9); HEMATOCRIT 33.1 % (36.0-47.0); HEMOGLOBIN 11.3 g/dL (12.0-16.0); LYMPHOCYTES # (AUTO) 1.6 X10^3/uL (1.3-2.9); LYMPHOCYTES % (AUTO) 25.4 % (21.0-51.0); MEAN CORPUSCULAR HEMOGLOBIN 30.8 pg (27.0-34.0); MEAN CORPUSCULAR HGB CONC 34.1 g/dL (33.0-35.0); MEAN CORPUSCULAR VOLUME 90.2 fL (80.0-100.0); MEAN PLATELET VOLUME 8.4 fL (7.4-11.0); MONOCYTES # (AUTO) 0.5 x10^3/uL (0.3-0.8); MONOCYTES % (AUTO) 7.9 % (0.0-13.0); NEUTROPHILS # (AUTO) 4.1 x10^3/uL (2.2-4.8); NEUTROPHILS % (AUTO) 62.9 % (42.0-75.0); PLATELET COUNT 215 X10^3/uL (150.0-450.0); RED BLOOD COUNT 3.67 X10^6/uL (3.5-5.4); RED CELL DISTRIBUTION WIDTH 14.1 % (11.6-16.5); WHITE BLOOD COUNT 6.4 X10^3/uL (3.6-10.0)
[2016-11-25 21:54] LABS: BLOOD UREA NITROGEN 23 mg/dL (7-18); CALCIUM 9.1 mg/dL (8.5-10.1); CARBON DIOXIDE 22.5 mmol/L (21-32); CHLORIDE 108 mmol/L (98-107); COR NA(FOR HYPERGLY) 143 mmol/L (136-145); CREATININE 1.93 mg/dL (0.55-1.02); GLUCOSE 166 mg/dL (65-99); SODIUM 141 mmol/L (136-145); TROPONIN I < 0.02 ng/mL (0-1.5); eGFR BLACK RACES 38 (>60); eGFR NON BLACK RACES 31 (>60)
[2016-11-25 22:00] LABS: ALANINE AMINOTRANSFERASE 18 Units/L (12-78); ALBUMIN 3.4 g/dL (3.4-5.0); ALKALINE PHOSPHATASE 90 Units/L (46-116); ASPARTATE AMINO TRANSFERASE 12 Units/L (15-37); CKMB % 1.7 % (<4); CREATINE KINASE 59 Units/L (26-192); CREATINE KINASE MB < 1.0 ng/mL (0-4.0); TOTAL PROTEIN 7.6 g/dL (6.4-8.2)
--- NOTE | 2016-11-25 22:36 | CT ---
STUDY: CT HEAD WITHOUT CONTRAST HISTORY: Altered mental status. TECHNIQUE: Multiple axial images of the head were obtained from the skull base to the vertex withou t administration of IV contrast. Automated exposure control (AEC) was utilized to adjust the MA and /or kV. COMPARISON: Head CT dated February 15, 2016. FINDINGS: The sulci, cisterns and ventricles are age appropriate. There is no evidence of acute ter ritorial infarction, hemorrhage, mass, mass effect, or midline shift. There are no abnormal intra-ax ial or extra-axial fluid collections. There is no evidence of acute osseous abnormality or significant soft tissue swelling. There are juana smiley secretions in several anterior ethmoid air cells on the right and the right frontal recess. IMPRESSION: 1. No evidence of acute intracranial abnormality. 2. Bubbly secretions in the anterior ethmoid air cells on the right and right frontal recess. Clinic al correlation for acute sinusitis is recommended. Reported By:
--- NOTE | 2016-11-25 22:50 | RAD ---
HISTORY: Chest pain. Study: Chest one view Comparison: October 15, 2016. Findings: The trachea is midline. The cardiac silhouette is enlarged. Median sternotomy wires are noted. Surg ical clips project over the mediastinum. There is no evidence of consolidation, significant infiltr ate, effusion, or pneumothorax. The bony thorax is unremarkable. IMPRESSION: 1. No evidence of acute pulmonary abnormality. 2. Cardiomegaly. Reported By:
[2016-11-25] MEDS ORDERED: CLEOCIN PO ONE (23:23)
[2016-11-25] MEDS ORDERED: ULTRAM PO ONE (23:24)
--- NOTE | 2016-11-25 23:39 | DR.GENAD ---
HPI - PCP Primary Care Physician: DAVID - HPI Comment HPI Comment: PATIENT HAD SYNCOPAL EPISODE AT HOME. NO INJURY REPORTED. GLUCOSE NOT LOW. FEELING DIZZY. NO FEVER OR DYSURIA. HAVE CHEST DISCOMFORT. - Complaint/Symptoms Chief Complaint Doctors Comments: PATIENT FAINTED AT HOME. DIABETIC, GLUCOSE NOT LOW. Chief Complaint:: FAINTED AT HOME - Nurses notes reviewed Nurses Notes Review: Yes - Source History Provided: Patient - Mode of Arrival Mode of Arrival: EMS - Timing Onset of Chief Complaint: 11/25/16 Came on: Suddenly - Duration Duration: Since Onset Duration: Minutes - Severity Severity: Moderate PMH - PMH Past Medical History: Yes Past Medical History: Coronary Artery Disease, Depression, Diabetes, Migraines, GERD, Headaches, Hypertension, Renal Disease Past Surgical History: Yes Surgical History: , CABG/Valve Surgery, Cholecystectomy, Ortho Surgery - Family History History of Family Medical Conditions: Yes Family Medical History: Diabetes Mellitus, Cancer, [place], Sudden Cardiac , Hypertension - Social History Does any household member use tobacco: No Alcohol Use: None Do you use any recreational Drugs:: No Lives With: Family Lives Where: Home - infectious screening In the last 2 months have you had wt loss of >10#?: NO Have you had fever, night sweats or hemotysis?: No Have you traveled outside the country in the last 6 months?: No Isolation: Standard ROS - Review of Systems Constitutional: Weakness, Fatigue. negative: Chills, Fever, Loss of Appetite Eyes: No Symptoms Reported. negative: Eye Pain, Discharge ENTM: No Symptoms Reported. negative: Ear Pain, Nose Discharge, Nose Congestion , Throat Pain Respiratoy: Non-Productive Cough, Short of Breath. negative: Productive Cough, Wheezing, Hemoptysis Cardiovascular: Chest Pain Gastrointestinal/Abdominal: Abdominal Pain, Nausea Genitourinary: negative: Dysuria, Frequency, Hematuria Neurological: Headache, Weakness, Dizziness Musculoskeletal: Joint Pain, Joint Swelling, Muscle Pain Integumentary: Wound (LOER EXTREMITY, SLIGHT DRAINAGE, USES WOUND VAC.) Hematologic/Lymphatic: Easy Bruising Endocrine: negative: Flushing, Increased Thirst, Increased Urine All Other Systems: Reviewed and Negative PE - Vital Signs Vitals: Temperature 98.5 F Pulse Rate 94 Respiratory Rate 16 Blood Pressure [Left Arm] 167/76 Blood Pressure [Right Arm] 107/54 Blood Pressure 120/81 O2 Sat by Pulse Oximetry 99 - General Limitations: No Limitations General Appearance: Alert - Head Head Exam: Normal Inspection - Eyes Eye exam: Normal Appearance - ENT ENT Exam: Normal External Ear Exam External Ear Exam: Normal External Inspection TM/Canal Exam: Bilateral Normal Mouth Exam: Normal Inspection Throat Exam: Normal Inspection - Neck Neck Exam: Normal Inspection - Chest Chest Inspection: Symmetric Chest Wall Rise - Respiratory Respiratory Exam: Normal Lung Sounds Bilat Respiratory Exam: Bilateral Clear to Auscultation - Cardiovascular Cardiovascular Exam: Regular Rate, Normal Rhythm, Normal Heart Sounds - Abdominal Exam Abdominal Exam: Normal Bowel Sounds, Soft. negative: Tenderness - Extremities Extremities Exam: Tenderness (WOUND RIGHT AURA/TORS AMPUTATED.), Other (LELOW KNEE AMPUTATION LEFT LOWER EXTREMITY.) - Back Back Exam: Paraspinal Tenderness - Neurologic Neurological Exam: Alert, Oriented X3 - Psychiatric Psychiatric Exam: Normal Affect, Normal Mood - Skin Skin Exam: Erythema MDM - Differential Diagnosis Differential Diagnosis: DIZZINESS, SYNCOPAL EPISODE. DIABETIC FOOT WOUND, Course - Treatment Treatment: SEE ORDERS - Education/Counseling Education/Counseling: Patient, Education Educated On: Treatment, Diagnosis ROR - Labs Reviewed Laboratory Results Reviewed?: Yes Result Diagrams: 11/25/16 21:30 11/25/16 21:30 Laboratory: WBC 6.4 X10^3/uL (3.6-10.0) 11/25/16 21:30 RBC 3.67 X10^6/uL (3.5-5.4) 11/25/16 21:30 Hgb 11.3 g/dL (12.0-16.0) L 11/25/16 21:30 Hct 33.1 % (36.0-47.0) L 11/25/16 21:30 MCV 90.2 fL (80.0-100.0) 11/25/16 21:30 MCH 30.8 pg (27.0-34.0) 11/25/16 21:30 MCHC 34.1 g/dL (33.0-35.0) 11/25/16 21:30 RDW 14.1 % (11.6-16.5) 11/25/16 21:30 Plt Count 215 X10^3/uL (150.0-450.0) 11/25/16 21:30 MPV 8.4 fL (7.4-11.0) 11/25/16 21:30 Neut % 62.9 % (42.0-75.0) 11/25/16 21:30 Lymph % 25.4 % (21.0-51.0) 11/25/16 21:30 [place] % 7.9 % (0.0-13.0) 11/25/16 21:30 Eos % 2.7 % (0.9-2.9) 11/25/16 21:30 Baso % 1.1 % (0.2-1.0) H 11/25/16 21:30 Neut # 4.1 x10^3/uL (2.2-4.8) 11/25/16 21:30 Lymph # 1.6 X10^3/uL (1.3-2.9) 11/25/16 21:30 [place] # 0.5 x10^3/uL (0.3-0.8) 11/25/16 21:30 Eos # 0.2 x10^3/uL (0.0-0.2) 11/25/16 21:30 Baso # 0.1 X10^3/uL (0.0-0.1) 11/25/16 21:30 Absolute Nucleated RBC 0.0 /100WBC 11/25/16 21:30 Sodium 141 mmol/L (136-145) 11/25/16 21:30 Corrected Sodium 143 mmol/L (136-145) 11/25/16 21:30 Potassium 4.6 mmol/L (3.5-5.1) 11/25/16 21:30 Chloride 108 mmol/L (98-107) H 11/25/16 21:30 Carbon Dioxide 22.5 mmol/L (21-32) 11/25/16 21:30 BUN 23 mg/dL (7-18) H 11/25/16 21:30 Creatinine 1.93 mg/dL (0.55-1.02) H 11/25/16 21:30 Est GFR (MDRD) Af Amer 38 (>60) L 11/25/16 21:30 Est GFR (MDRD) Non-Af 31 (>60) L 11/25/16 21:30 Glucose 166 mg/dL (65-99) H 11/25/16 21:30 Calcium 9.1 mg/dL (8.5-10.1) 11/25/16 21:30 Corrected Calcium TNP 11/25/16 21:30 Total Bilirubin 0.30 mg/dL (0.2-1.0) 11/25/16 21:30 AST 12 Units/L (15-37) L 11/25/16 21:30 ALT 18 Units/L (12-78) 11/25/16 21:30 Alkaline Phosphatase 90 Units/L (46-116) 11/25/16 21:30 Creatine Kinase 59 Units/L (26-192) 11/25/16 21:30 CK-MB (CK-2) < 1.0 ng/mL (0-4.0) 11/25/16 21:30 CK/CKMB % Calc 1.7 % (<4) 11/25/16 21:30 Troponin I < 0.02 ng/mL (0-1.5) 11/25/16 21:30 Total Protein 7.6 g/dL (6.4-8.2) 11/25/16 21:30 Albumin 3.4 g/dL (3.4-5.0) 11/25/16 21:30 Globulin 4.2 g/dL (2.5-4.5) 11/25/16 21:30 Albumin/Globulin Ratio 0.8 Ratio (1.1-2.1) L 11/25/16 21:30 Acetone, Semi-Quant Negative (NEGATIVE) 11/25/16 21:30 - XRAY XRAY Interpreted by: Radiologist XRAY Findings: REPORT DISCUSS WITH PATIENT. - EKG Rhythm: NSR (EKG NOTED) - Diagnosis Discharge Problem: Syncope, Dizziness - Discharge Plan Disposition: 01 HOME, SELF-CARE Condition: Stable Prescriptions: Amoxicillin & Pot Clavulanate [AUGMENTIN TAB 875 mg/125 mg *] 1 tab PO BID #20 tab Cetirizine HCl [Zyrtec Tab 10 mg] 10 mg PO DAILY #20 tab - Follow ups/Referrals Follow ups/Referrals: NISH HERNANDEZ [Primary Care Provider] - 3 days - Instructions Instructions: Syncope, [id number], Sinusitis, Adult Additional Instructions: RETURN TO ED IF WORSE.
[2016-11-25] MEDS ORDERED: AUGMENTIN 875 MG/125 MG TAB PO ONE ×2 (23:42→23:54)
[2016-11-25] MEDS ORDERED: ZyrTEC TAB 10 MG PO ONE (23:42)
[2016-11-25] MEDS ORDERED: ZyrTEC TAB 10 MG ONE (23:49)
== END 2016-11-26 00:36 | disposition home or self-care (01) ==
LOC: ER 19:56
DX: R55 Syncope and collapse (principal); R42 Dizziness and giddiness
CPT/HCPCS: 36415; 70450; 71010; 80053; 82009; 82550; 82553; 84484; 85025; 93005; 93010; 99283

== ENCOUNTER → 2017-01-30 | Outpatient (CLI) | payer OTHER, MEDICAID ==
--- NOTE | 2017-01-30 16:59 | MRI ---
MRI right shoulder without contrast Indication: Right shoulder pain and stiffness Technique: Multisequence, multiplanar MR images of the right shoulder were obtained without IV contr ast. Comparison: None Findings: There is a chronic appearing small impaction divot along the posterior lateral humeral hea d (image 7, series 501), compatible with remote Hill-Sachs lesion. No associated edema or osseous [place] lesion of the anterior inferior glenoid is seen. However, the anterior inferior labrum is blun tyshawn in appearance with suggestion of a medially displaced labral fragment (axial image 10, series 50 1). The remaining labrum appears grossly intact. The humeral head is currently well seated within th e glenoid. No acute fracture or malalignment is identified. There is a suspected focal, low-grade, articular sided tear of the posterior infraspinatus tendon at the level of the Hill-Sachs lesion (image 12, series 701). The remaining tendons of the rotator cuf f are intact. No muscular edema or atrophy is seen. The AC joint is unremarkable. The type 1 acromion demonstrates no appreciable anterior or lateral do wnsloping. There is no significant fluid within the subdeltoid /subacromial bursa. The glenohumeral joint space is well maintained. There is a small glenohumeral joint effusion, extending into the sub scapular recess. Small fluid within the subcoracoid bursa as also seen. The long head biceps tendon is intact and appropriately positioned within the bicipital groove. Flui d about the extra-articular tendon is likely related to the glenohumeral effusion. There is mild thi ckening and intermediate signal of the inferior glenohumeral ligament without discrete tear. Mild ed tray within the rotator interval is also seen. Impression: 1. Imaging findings suggestive for remote, prior anterior shoulder dislocation with associated chron ic Hill-Sachs fracture and soft tissue Bankart lesion of the anterior inferior labrum. 2. Small, likely reactive glenohumeral joint effusion. 3. Suspected focal, low grade articular sided tear of the posterior infraspinatus tendon at the leve l of the Hill-Sachs lesion. 4. Mild thickening and intermediate signal of the inferior glenohumeral ligament with mild edema of the rotator interval, which may be reactive or reflect capsulitis. Clinical correlation recommended. Reported By:
== END ==
LOC: RAD 13:57
PROVIDERS: ATTEND Nurse Practitioner Family
DX: M25.511 Pain in right shoulder (principal)
CPT/HCPCS: 73221

== ENCOUNTER 2017-02-25 18:51 | Emergency (ER) | payer OTHER, MEDICAID ==
[2017-02-25 18:58] VITALS: BMI 36.2
[2017-02-25] MEDS ORDERED: ZOFRAN INJ 4 MG VIAL ONE (19:44)
[2017-02-25] MEDS ORDERED: ZOFRAN INJ 4 MG VIAL IVP ONE (19:54)
[2017-02-25 20:26] LABS: BASOPHILS # (AUTO) 0.1 X10^3/uL (0.0-0.1); BASOPHILS % (AUTO) 2.4 % (0.2-1.0); EOSINOPHILS # (AUTO) 0.2 x10^3/uL (0.0-0.2); EOSINOPHILS % (AUTO) 4.2 % (0.9-2.9); HEMATOCRIT 29.7 % (36.0-47.0); HEMOGLOBIN 10.3 g/dL (12.0-16.0); LYMPHOCYTES # (AUTO) 1.1 X10^3/uL (1.3-2.9); LYMPHOCYTES % (AUTO) 25.9 % (21.0-51.0); MEAN CORPUSCULAR HEMOGLOBIN 32.6 pg (27.0-34.0); MEAN CORPUSCULAR HGB CONC 34.5 g/dL (33.0-35.0); MEAN CORPUSCULAR VOLUME 94.5 fL (80.0-100.0); MEAN PLATELET VOLUME 9.2 fL (7.4-11.0); MONOCYTES # (AUTO) 0.2 x10^3/uL (0.3-0.8); MONOCYTES % (AUTO) 5.5 % (0.0-13.0); NEUTROPHILS # (AUTO) 2.7 x10^3/uL (2.2-4.8); PLATELET COUNT 175 X10^3/uL (150.0-450.0); RED BLOOD COUNT 3.15 X10^6/uL (3.5-5.4); RED CELL DISTRIBUTION WIDTH 13.6 % (11.6-16.5); WHITE BLOOD COUNT 4.4 X10^3/uL (3.6-10.0)
[2017-02-25 20:36] LABS: ALBUMIN 2.8 g/dL (3.4-5.0); CALCIUM 8.9 mg/dL (8.5-10.1); CARBON DIOXIDE 26.7 mmol/L (21-32); COR CA(FOR HYPOALB) 9.9 mg/dL (8.5-10.1); TOTAL PROTEIN 6.8 g/dL (6.4-8.2)
[2017-02-25] MEDS ORDERED: NS 1000 ML 1,000 ML IV ONE ×2 (20:39→22:09)
[2017-02-25] MEDS ORDERED: NS 1000 ML 1,000 ML ONE ×2 (20:42→22:05)
[2017-02-25] MEDS ORDERED: TORADOL 30 MG VIAL ONE (20:45)
--- NOTE | 2017-02-25 20:47 | DR.GENAD ---
HPI - PCP Primary Care Physician: Nilson - Complaint/Symptoms Chief Complaint Doctors Comments: History as stated Chief Complaint:: "I have been throwing up since Saturday. I have phenergan pills but they have not been doing any good at all." - Source History Provided: Patient - Mode of Arrival Mode of Arrival: Wheelchair - Timing Onset of Chief Complaint: 02/22/17 PMH - PMH Past Medical History: Yes Past Medical History: Coronary Artery Disease, Depression, Diabetes, Migraines, GERD, Headaches, Hypertension, Renal Disease Past Surgical History: Yes Surgical History: , CABG/Valve Surgery, Cholecystectomy, Ortho Surgery - Family History History of Family Medical Conditions: Yes Family Medical History: Diabetes Mellitus, Cancer, [place], Sudden Cardiac , Hypertension - Social History Does patient currently use any type of tobacco product: No Have you used tobacco products in the last 12 months: No Type of Tobacco Use: None Does any household member use tobacco: No Alcohol Use: None Do you use any recreational Drugs:: No Lives With: Family Lives Where: Home - infectious screening In the last 2 months have you had wt loss of >10#?: NO Have you had fever, night sweats or hemotysis?: No Have you traveled outside the country in the last 6 months?: No Isolation: Standard ROS - Review of Systems Constitutional: negative: Chills, Diaphoresis Eyes: No Symptoms Reported ENTM: No Symptoms Reported Respiratoy: No Symptoms Reported Cardiovascular: No Symptoms Reported Gastrointestinal/Abdominal: No Symptoms Reported Genitourinary: No Symptoms Reported Neurological: No Symptoms Reported Musculoskeletal: No Symptoms Reported Integumentary: No Symptoms Reported Hematologic/Lymphatic: No Symptoms Reported Endocrine: No Symptoms Reported Psychiatric: No Symptoms Reported All Other Systems: Reviewed and Negative PE - Vital Signs Vitals: Temperature 98.7 F Pulse Rate [Apical] 93 Pulse Rate 125 Respiratory Rate 20 Blood Pressure [Left Arm] 166/87 Blood Pressure [Right Arm] 107/54 Blood Pressure 177/89 O2 Sat by Pulse Oximetry 95 - General General Appearance: Alert, In No Apparent Distress - Head Head Exam: Normal Inspection, Atraumatic - Eyes Eye exam: Normal Appearance, PERRL, EOMI - ENT ENT Exam: Normal Exam External Ear Exam: Normal External Inspection TM/Canal Exam: Bilateral Normal Nose Exam: Normal Nose Exam Mouth Exam: Other (dry mucosa) Throat Exam: Normal Inspection - Neck Neck Exam: Normal Inspection, Full ROM - Chest Chest Inspection: Normal Inspection, Symmetric Chest Wall Rise - Respiratory Respiratory Exam: Normal Lung Sounds Bilat Respiratory Exam: Bilateral Clear to Auscultation - Cardiovascular Cardiovascular Exam: Regular Rate, Normal Rhythm - Abdominal Exam Abdominal Exam: Normal Inspection, Normal Bowel Sounds Abdominal Tenderness: negative: RUQ, RLQ, LUQ, LLQ, Epigastrium, Suprapubic, Diffuse, Mild, Moderate, Severe, Other - Extremities Extremities Exam: Normal Inspection, Full ROM, Normal Capillary Refill - Back Back Exam: Normal Inspection - Neurologic Neurological Exam: Alert, Oriented X3 - Psychiatric Psychiatric Exam: Normal Affect, Normal Mood - Skin Skin Exam: Warm, Dry, Intact Course - Treatment Treatment: mucous membranes moist, good cap refill, no vomiting - Reevaluation 1st: Improved ROR - Labs Reviewed Result Diagrams: 02/25/17 20:13 02/25/17 20:13 Laboratory: WBC 4.4 X10^3/uL (3.6-10.0) 02/25/17 20:13 RBC 3.15 X10^6/uL (3.5-5.4) L 02/25/17 20:13 Hgb 10.3 g/dL (12.0-16.0) L 02/25/17 20:13 Hct 29.7 % (36.0-47.0) L 02/25/17 20:13 MCV 94.5 fL (80.0-100.0) 02/25/17 20:13 MCH 32.6 pg (27.0-34.0) 02/25/17 20:13 MCHC 34.5 g/dL (33.0-35.0) 02/25/17 20:13 RDW 13.6 % (11.6-16.5) 02/25/17 20:13 Plt Count 175 X10^3/uL (150.0-450.0) 02/25/17 20:13 MPV 9.2 fL (7.4-11.0) 02/25/17 20:13 Neut % 62.0 % (42.0-75.0) 02/25/17 20:13 Lymph % 25.9 % (21.0-51.0) 02/25/17 20:13 [place] % 5.5 % (0.0-13.0) 02/25/17 20:13 Eos % 4.2 % (0.9-2.9) H 02/25/17 20:13 Baso % 2.4 % (0.2-1.0) H 02/25/17 20:13 Neut # 2.7 x10^3/uL (2.2-4.8) 02/25/17 20:13 Lymph # 1.1 X10^3/uL (1.3-2.9) L 02/25/17 20:13 [place] # 0.2 x10^3/uL (0.3-0.8) L 02/25/17 20:13 Eos # 0.2 x10^3/uL (0.0-0.2) 02/25/17 20:13 Baso # 0.1 X10^3/uL (0.0-0.1) 02/25/17 20:13 Absolute Nucleated RBC 0.0 /100WBC 02/25/17 20:13 Sodium 136 mmol/L (136-145) 02/25/17 20:13 Corrected Sodium 140 mmol/L (136-145) 02/25/17 20:13 Potassium 4.6 mmol/L (3.5-5.1) 02/25/17 20:13 Chloride 102 mmol/L (98-107) 02/25/17 20:13 Carbon Dioxide 26.7 mmol/L (21-32) 02/25/17 20:13 BUN 30 mg/dL (7-18) H 02/25/17 20:13 Creatinine 2.00 mg/dL (0.55-1.02) H 02/25/17 20:13 Est GFR (MDRD) Af Amer 36 (>60) L 02/25/17 20:13 Est GFR (MDRD) Non-Af 30 (>60) L 02/25/17 20:13 Glucose 278 mg/dL (65-99) H 02/25/17 20:13 Calcium 8.9 mg/dL (8.5-10.1) 02/25/17 20:13 Corrected Calcium 9.9 mg/dL (8.5-10.1) 02/25/17 20:13 Total Bilirubin 0.30 mg/dL (0.2-1.0) 02/25/17 20:13 AST 10 Units/L (15-37) L 02/25/17 20:13 ALT 18 Units/L (12-78) 02/25/17 20:13 Alkaline Phosphatase 66 Units/L (46-116) 02/25/17 20:13 Total Protein 6.8 g/dL (6.4-8.2) 02/25/17 20:13 Albumin 2.8 g/dL (3.4-5.0) L 02/25/17 20:13 Globulin 4.0 g/dL (2.5-4.5) 02/25/17 20:13 Albumin/Globulin Ratio 0.7 Ratio (1.1-2.1) L 02/25/17 20:13 - Diagnosis Discharge Problem: Acute vomiting - Discharge Plan Condition: Stable - Follow ups/Referrals Follow ups/Referrals: NFD,None [Primary Care Provider] - 3 days - Instructions
[2017-02-25] MEDS ORDERED: TORADOL 30 MG VIAL IVP ONE (20:48)
[2017-02-25] MEDS ORDERED: REGLAN INJ 10 MG VIAL IVP ONE (21:27)
[2017-02-25] MEDS ORDERED: REGLAN INJ 10 MG VIAL ONE (21:29)
[2017-02-25 21:49] VITALS: BP 166/87
== END 2017-02-25 23:21 | disposition home or self-care (01) ==
LOC: ER 18:56
DX: R11.10 Vomiting, unspecified (principal)
CPT/HCPCS: 36415; 80053; 85025; 96365; 96367; 96374; 96375; 99282; 99283; A4222; J1885; J2405; J2765

== ENCOUNTER 2017-03-27 21:17 | Emergency (ER) | payer OTHER, MEDICAID ==
[2017-03-27] MEDS ORDERED: VALIUM INJ ONE (21:18)
[2017-03-27] MEDS ORDERED: VALIUM INJ IM ONE (21:28)
[2017-03-27 21:29] VITALS: BP 139/86; BMI 36.6
--- NOTE | 2017-03-27 21:30 | DR.FBACK ---
HPI - Time Seen Time seen: 21:25 - PCP Primary Care Physician: DAVID - Complaint Chief Complaint Doctor Comments: Patient admits to falling the in the bathroom tonight. Admits to back spasm. Patient is a frequent visitor to the ED for pain medication. Chief Complaint:: "I HAVE BEEN HAVING BACK PAIN FOR 2/3 DYAS, NOW I AM HAVING BACK SPASMS." - Source History Provided: Patient, EMS - Mode of Arrival Mode of Arrival: EMS - Timing Onset of Chief Complaint: 03/27/17 PMH - PMH Past Medical History: Yes Past Medical History: Coronary Artery Disease, Depression, Diabetes, Migraines, GERD, Headaches, Hypertension, Renal Disease Past Surgical History: Yes Surgical History: , CABG/Valve Surgery, Cholecystectomy, Ortho Surgery - Family History History of Family Medical Conditions: Yes Family Medical History: Diabetes Mellitus, Cancer, [place], Sudden Cardiac , Hypertension - Social History Does patient currently use any type of tobacco product: No Have you used tobacco products in the last 12 months: No Type of Tobacco Use: None Alcohol Use: None Do you use any recreational Drugs:: No Lives Where: Home - infectious screening Have you traveled outside the country in the last 6 months?: No Isolation: Standard ROS - Review of Systems Eyes: No Symptoms Reported ENTM: No Symptoms Reported Respiratoy: No Symptoms Reported Cardiovascular: No Symptoms Reported Gastrointestinal/Abdominal: No Symptoms Reported Genitourinary: No Symptoms Reported Neurological: No Symptoms Reported Musculoskeletal: No Symptoms Reported Integumentary: No Symptoms Reported Hematologic/Lymphatic: No Symptoms Reported Endocrine: No Symptoms Reported Psychiatric: No Symptoms Reported All Other Systems: Reviewed and Negative PE - Vitals Vital Signs: Temp Pulse Resp BP BP BP Pulse Ox 03/27/17 21:18 98.1 F 110 H 18 139/86 98 02/25/17 21:46 166/87 166/87 10/29/16 00:00 107/54 - General Limitations: No Limitations General Appearance: Alert, In No Apparent Distress - Head Head Exam: Normal Inspection, Atraumatic - Eyes Eye exam: Normal Appearance, PERRL, EOMI - ENT ENT Exam: Normal Exam - Chest Chest Inspection: Normal Inspection, Symmetric Chest Wall Rise - Respiratory Respiratory Exam: Normal Lung Sounds Bilat Respiratory Exam: Bilateral Clear to Auscultation - Cardiovascular Cardiovascular Exam: Regular Rate, Normal Rhythm - Abdominal Exam Abdominal Exam: Normal Inspection, Normal Bowel Sounds Abdominal Tenderness: negative: RUQ, RLQ, LUQ, LLQ, Epigastrium, Suprapubic, Diffuse, Mild, Moderate, Severe, Other - Genitourinary External Exam: Female: Normal External Exam : Speculum Exam (Female): Normal Speculum Exam : Bimanual Exam (female): Normal Bimanual exam - Extremities Extremities Exam: Normal Inspection, Full ROM - Back Back Exam: Normal Inspection - Neurological Neurological Exam: Alert, Oriented X3, CN II-XII Intact - Psychiatric Psychiatric Exam: Normal Affect - Skin Skin Exam: Warm, Dry, Intact Course - Reevaluation 1st: Improved - Diagnosis Discharge Problem: Back muscle spasm - Discharge Plan Condition: Stable - Follow ups/Referrals Follow ups/Referrals: NISH HERNANDEZ [Primary Care Provider] - 3 days - Instructions
[2017-03-27] MEDS ORDERED: NORCO 5/325 MG TAB PO ONE (21:31)
== END 2017-03-27 21:40 | disposition home or self-care (01) ==
LOC: ER 21:19
DX: M62.830 Muscle spasm of back (principal); W19.XXXA Unspecified fall, initial encounter; Y92.89 Other specified places as the place of occurrence of the external cause
CPT/HCPCS: 96372; 99282; J3360

== ENCOUNTER 2017-05-26 20:51 | Emergency (ER) | payer OTHER, MEDICAID ==
[2017-05-26] MEDS ORDERED: NS 1000 ML 1,000 ML IV ONE (21:00)
[2017-05-26] MEDS ORDERED: NS 1000 ML 1,000 ML ONE ×2 (21:01→23:10)
[2017-05-26 21:03] VITALS: BMI 36.6
--- NOTE | 2017-05-26 21:06 | DR.GENAD ---
HPI - PCP Primary Care Physician: Nilson - Complaint/Symptoms Chief Complaint Doctors Comments: Patient states that she was doing fine until her back started hurting and her son took her glucose and it read high. She denies fever, vomiting or diarrhea. She reports that she takes her insulin 3U qam,3U lunch and 3U HS. PMH - PMH Past Medical History: Coronary Artery Disease, Depression, Diabetes, Migraines, GERD, Headaches, Hypertension, Renal Disease Past Surgical History: Yes Surgical History: , CABG/Valve Surgery, Cholecystectomy, Ortho Surgery - Family History Family Medical History: Diabetes Mellitus, Cancer, [place], Sudden Cardiac , Hypertension - Social History Do you use any recreational Drugs:: No ROS - Review of Systems Eyes: No Symptoms Reported ENTM: No Symptoms Reported Respiratoy: No Symptoms Reported Cardiovascular: No Symptoms Reported Gastrointestinal/Abdominal: No Symptoms Reported Genitourinary: No Symptoms Reported Neurological: No Symptoms Reported Musculoskeletal: No Symptoms Reported Integumentary: No Symptoms Reported Hematologic/Lymphatic: No Symptoms Reported Endocrine: No Symptoms Reported Psychiatric: No Symptoms Reported All Other Systems: Reviewed and Negative PE - Vital Signs Vitals: Temperature 98.1 F Pulse Rate [Left] 70 Pulse Rate 81 Respiratory Rate 16 Blood Pressure [Left Arm] 107/58 Blood Pressure [Right Arm] 107/54 Blood Pressure 111/73 O2 Sat by Pulse Oximetry 98 - General Limitations: No Limitations General Appearance: Alert, In No Apparent Distress - Head Head Exam: Normal Inspection, Atraumatic - Eyes Eye exam: Normal Appearance, PERRL, EOMI - ENT ENT Exam: Normal Exam External Ear Exam: Normal External Inspection TM/Canal Exam: Bilateral Normal Nose Exam: Normal Nose Exam Mouth Exam: Normal Inspection Throat Exam: Normal Inspection - Neck Neck Exam: Normal Inspection - Chest Chest Inspection: Normal Inspection - Respiratory Respiratory Exam: Normal Lung Sounds Bilat Respiratory Exam: Bilateral Clear to Auscultation - Cardiovascular Cardiovascular Exam: Regular Rate, Normal Rhythm - Abdominal Exam Abdominal Exam: Normal Inspection, Normal Bowel Sounds Abdominal Tenderness: negative: RUQ, RLQ, LUQ, LLQ, Epigastrium, Suprapubic, Diffuse, Mild, Moderate, Severe, Other - Extremities Extremities Exam: Other (BKA right) - Back Back Exam: Normal Inspection (c/o mid low back pain) - Neurologic Neurological Exam: Alert, Oriented X3, CN II-XII Intact - Psychiatric Psychiatric Exam: Normal Affect, Normal Mood - Skin Skin Exam: Warm, Dry, Intact Course - Reevaluation 1st: Improved - Education/Counseling Educated On: Treatment, Diagnosis, Prognosis, Needs for Follow Up ROR - Labs Reviewed Result Diagrams: 05/26/17 21:08 05/27/17 00:05 Laboratory: WBC 6.5 X10^3/uL (3.6-10.0) 05/26/17 21:08 RBC 2.84 X10^6/uL (3.5-5.4) L 05/26/17 21:08 Hgb 9.2 g/dL (12.0-16.0) L 05/26/17 21:08 Hct 27.0 % (36.0-47.0) L 05/26/17 21:08 MCV 95.3 fL (80.0-100.0) 05/26/17 21:08 MCH 32.3 pg (27.0-34.0) 05/26/17 21:08 MCHC 33.9 g/dL (33.0-35.0) 05/26/17 21:08 RDW 13.7 % (11.6-16.5) 05/26/17 21:08 Plt Count 152 X10^3/uL (150.0-450.0) 05/26/17 21:08 MPV 10.3 fL (7.4-11.0) 05/26/17 21:08 Neut % 63.3 % (42.0-75.0) 05/26/17 21:08 Lymph % 23.9 % (21.0-51.0) 05/26/17 21:08 [place] % 5.9 % (0.0-13.0) 05/26/17 21:08 Eos % 3.2 % (0.9-2.9) H 05/26/17 21:08 Baso % 3.7 % (0.2-1.0) H 05/26/17 21:08 Neut # 4.1 x10^3/uL (2.2-4.8) 05/26/17 21:08 Lymph # 1.6 X10^3/uL (1.3-2.9) 05/26/17 21:08 [place] # 0.4 x10^3/uL (0.3-0.8) 05/26/17 21:08 Eos # 0.2 x10^3/uL (0.0-0.2) 05/26/17 21:08 Baso # 0.2 X10^3/uL (0.0-0.1) H 05/26/17 21:08 Absolute Nucleated RBC 0.1 /100WBC 05/26/17 21:08 Sample Site right brachial 05/26/17 23:15 ABG pH 7.390 (7.35-7.45) 05/26/17 23:15 ABG pCO2 39.0 mmHg (35.0-45.0) 05/26/17 23:15 ABG pO2 82.0 mmHg (80.0-100.0) 05/26/17 23:15 ABG HCO3 23.6 mmol/L (22-26) 05/26/17 23:15 ABG O2 Saturation 96.0 % (90-100) 05/26/17 23:15 ABG Base Excess -1.2 mmol/L (-2.0-2.0) 05/26/17 23:15 Nathan Test na 05/26/17 23:15 A-a Gradient 19.0 mmHg 05/26/17 23:15 FiO2 21.000 05/26/17 23:15 Blood Gas Comments none 05/26/17 23:15 Sodium 133 mmol/L (136-145) L 05/27/17 00:05 Corrected Sodium 135 mmol/L (136-145) L 05/27/17 00:05 Potassium 3.5 mmol/L (3.5-5.1) 05/27/17 00:05 Chloride 101 mmol/L (98-107) 05/27/17 00:05 Carbon Dioxide 23.1 mmol/L (21-32) 05/27/17 00:05 BUN 37 mg/dL (7-18) H 05/27/17 00:05 Creatinine 1.83 mg/dL (0.55-1.02) H 05/27/17 00:05 Est GFR (MDRD) Af Amer 40 (>60) L 05/27/17 00:05 Est GFR (MDRD) Non-Af 33 (>60) L 05/27/17 00:05 Glucose 192 mg/dL (65-99) H 05/27/17 00:05 POC Glucose (mg/dL) 163 mg/dL (65-99) H 05/27/17 00:47 Hemoglobin A1c > 16.0 % (4.5-6.2) H 05/26/17 21:08 Calcium 7.9 mg/dL (8.5-10.1) L 05/27/17 00:05 Corrected Calcium 9.3 mg/dL (8.5-10.1) 05/26/17 21:08 Total Bilirubin 0.30 mg/dL (0.2-1.0) 05/26/17 21:08 AST 12 Units/L (15-37) L 05/26/17 21:08 ALT 8.4 Units/L (12-78) L 05/26/17 21:08 Alkaline Phosphatase 87 Units/L (46-116) 05/26/17 21:08 Total Protein 7.3 g/dL (6.4-8.2) 05/26/17 21:08 Albumin 2.8 g/dL (3.4-5.0) L 05/26/17 21:08 Globulin 4.5 g/dL (2.5-4.5) 05/26/17 21:08 Albumin/Globulin Ratio 0.6 Ratio (1.1-2.1) L 05/26/17 21:08 Specimen Type Clean catch urine 05/26/17 22:22 Urine Color Pale yellow (YELLOW) 05/26/17 22:22 Urine Appearance Hazy (CLEAR) 05/26/17 22:22 Urine pH 5.0 (5.0 - 8.0) 05/26/17 22:22 Ur Specific [place] 1.010 (1.000-1.030) 05/26/17 22:22 Urine Protein 1+ (NEGATIVE) 05/26/17 22:22 Urine Glucose (UA) 4+ (NEGATIVE) 05/26/17 22:22 Urine Ketones Negative (NEGATIVE) 05/26/17 22:22 Urine Occult Blood 1+ (NEGATIVE) 05/26/17 22:22 Urine Nitrite Negative (NEGATIVE) 05/26/17 22:22 Urine Bilirubin Negative (NEGATIVE) 05/26/17 22:22 Urine Urobilinogen Normal (NORMAL) 05/26/17 22:22 Ur Leukocyte Esterase Negative (NEGATIVE) 05/26/17 22:22 Urine RBC 0-3 /HPF (NEGATIVE) 05/26/17 22:22 Urine WBC 10-15 /HPF (NEGATIVE) 05/26/17 22:22 Ur Squamous Epith Cells Few /HPF (NEGATIVE) 05/26/17 22:22 Urine Bacteria Negative /HPF (NEGATIVE) 05/26/17 22:22 Urine Yeast Many /HPF (NEGATIVE) 05/26/17 22:22 Ur Culture Indicated? No/not indicated 05/26/17 22:22 Acetone, Semi-Quant Negative (NEGATIVE) 05/26/17 21:08 - Diagnosis Discharge Problem: Hyperglycemia - Discharge Plan Condition: Stable - Follow ups/Referrals Follow ups/Referrals: NISH HERNANDEZ [Primary Care Provider] - 3 days - Instructions
[2017-05-26 21:46] LABS: ALBUMIN 2.8 g/dL (3.4-5.0); ALKALINE PHOSPHATASE 87 Units/L (46-116); BLOOD UREA NITROGEN 39 mg/dL (7-18); CALCIUM 8.3 mg/dL (8.5-10.1); CARBON DIOXIDE 21.9 mmol/L (21-32); CHLORIDE 95 mmol/L (98-107); COR CA(FOR HYPOALB) 9.3 mg/dL (8.5-10.1); SODIUM 128 mmol/L (136-145); eGFR BLACK RACES 34 (>60); eGFR NON BLACK RACES 28 (>60)
[2017-05-26 22:02] LABS: BASOPHILS # (AUTO) 0.2 X10^3/uL (0.0-0.1); EOSINOPHILS # (AUTO) 0.2 x10^3/uL (0.0-0.2); RED CELL DISTRIBUTION WIDTH 13.7 % (11.6-16.5)
[2017-05-26 22:12] LABS: COR NA(FOR HYPERGLY) 138 mmol/L (136-145); TOTAL PROTEIN 7.3 g/dL (6.4-8.2)
[2017-05-26 22:24] LABS: HEMOGLOBIN A1C > 16.0 % (4.5-6.2)
[2017-05-26] MEDS ORDERED: HumuLIN R IV STA (22:24)
[2017-05-26] MEDS ORDERED: HumuLIN R ONE ×3 (22:25→23:00)
[2017-05-26 22:31] LABS: BASOPHILS % (AUTO) 3.7 % (0.2-1.0); EOSINOPHILS % (AUTO) 3.2 % (0.9-2.9); HEMOGLOBIN 9.2 g/dL (12.0-16.0); LYMPHOCYTES # (AUTO) 1.6 X10^3/uL (1.3-2.9); LYMPHOCYTES % (AUTO) 23.9 % (21.0-51.0); MEAN CORPUSCULAR HEMOGLOBIN 32.3 pg (27.0-34.0); MEAN CORPUSCULAR HGB CONC 33.9 g/dL (33.0-35.0); MEAN CORPUSCULAR VOLUME 95.3 fL (80.0-100.0); MEAN PLATELET VOLUME 10.3 fL (7.4-11.0); MONOCYTES # (AUTO) 0.4 x10^3/uL (0.3-0.8); MONOCYTES % (AUTO) 5.9 % (0.0-13.0); NEUTROPHILS # (AUTO) 4.1 x10^3/uL (2.2-4.8); NEUTROPHILS % (AUTO) 63.3 % (42.0-75.0); PLATELET COUNT 152 X10^3/uL (150.0-450.0); RED BLOOD COUNT 2.84 X10^6/uL (3.5-5.4); WHITE BLOOD COUNT 6.5 X10^3/uL (3.6-10.0)
[2017-05-26] MEDS ORDERED: NS 100 ML IV 100 ML IV ONE (22:43)
[2017-05-26 23:09] LABS: APPEARANCE,URINE HAZY (CLEAR); BLOOD/HEMOGLOBIN,URINE 1+ (NEGATIVE); COLOR,URINE PALE YELLOW (YELLOW); GLUCOSE, URINE 4+ (NEGATIVE); KETONES,URINE NEGATIVE (NEGATIVE); NITRITES,URINE NEGATIVE (NEGATIVE); PROTEIN,URINE 1+ (NEGATIVE)
[2017-05-26 23:10] LABS: BACTERIA,URINE NEGATIVE /HPF (NEGATIVE); BILIRUBIN,URINE NEGATIVE (NEGATIVE); LEUKOCYTE ESTERASE ,URINE NEGATIVE (NEGATIVE); RBC,URINE 0-3 /HPF (NEGATIVE); SQUAMOUS EPITHELIAL CELL,UR FEW /HPF (NEGATIVE); UROBILINOGEN,URINE NORMAL (NORMAL); YEAST,URINE MANY /HPF (NEGATIVE)
[2017-05-26 23:25] LABS: ABG BASE EXCESS -1.2 mmol/L (-2.0-2.0); ABG HCO3 23.6 mmol/L (22-26)
[2017-05-26 23:38] LABS: ALANINE AMINOTRANSFERASE 8.4 Units/L (12-78); ASPARTATE AMINO TRANSFERASE 12 Units/L (15-37)
[2017-05-27] MEDS ORDERED: TORADOL 60 MG VIAL IM ONE (00:08)
[2017-05-27 00:19] LABS: CALCIUM 7.9 mg/dL (8.5-10.1); CARBON DIOXIDE 23.1 mmol/L (21-32); CREATININE 1.83 mg/dL (0.55-1.02)
[2017-05-27] MEDS ORDERED: NORCO 7.5/325 MG TAB PO ONE (00:25)
[2017-05-27] MEDS ORDERED: TORADOL 30 MG VIAL IVP ONE (01:28)
[2017-05-27] MEDS ORDERED: TORADOL 30 MG VIAL ONE (01:32)
[2017-05-27] MEDS ORDERED: NORCO 7.5/325 MG TAB ONE (01:32)
[2017-05-27 02:03] VITALS: BP 122/56
[2017-05-27] MEDS ORDERED: SNACK - Diabetic Appropriate PO SCH ×2 (20:00)
== END 2017-05-27 01:59 | disposition home or self-care (01) ==
LOC: ER 20:51
DX: R73.9 Hyperglycemia, unspecified (principal)
CPT/HCPCS: 36415; 36600; 80048; 80053; 81001; 82009; 82803; 83036; 85025; 96365; 96367; 96374; 96375; 99282; 99284; J1815; J1885

== ENCOUNTER 2017-05-27 15:07 | Inpatient (IN) | payer OTHER, MEDICAID ==
[2017-05-27] MEDS: NS 1000 ML 1,000 ML IV SCH (17:59)
--- NOTE | 2017-05-27 18:07 | RAD ---
Examination: Portable AP chest History: Hypertension and CHF Comparison reference 11/25/2016. Findings: Continued normal heart size with findings of sternotomy. The lungs are clear. No acute proc ess demonstrated. Impression: No interval change; no acute disease. Reported By:
[2017-05-27] MEDS ORDERED: VENTOLIN or PROAIR HFA IN PRN (18:24)
[2017-05-27 18:25] VITALS: BMI 36.6
--- NOTE | 2017-05-27 18:25 | DR.H&P ---
H&P - History & Physical for Day of: H&P Date: 05/27/17 - Chief Complaint Chief Complaint: N/V, WEAKNESS AND ELEVATED BLOOD PRESSURE - Allergies Allergies/Adverse Reactions: Allergies Allergy/AdvReac Type Severity Reaction Status Date / Time No Known Drug Allergies Allergy Verified 03/27/17 21:23 - History of Present Illness History of Present Illness: 36 WF DIRECT ADMIT FOR EVALUATION AND TREATMENT OF INTRACTABLE N/V AND ELEVATED BLOOD SUGAR. PT STATES SHE WAS SEEN IN ED LAST PM. PLAN TO ADMIT FOR TREATMENT OF DEHYDRATION AND POSSIBLE DKA. PLAN TO RESUME HOME MEDS, IV HYDRATION. - Past Medical History Past Medical History: Coronary Artery Disease, Depression, Diabetes, Migraines, GERD, Headaches, Hypertension, Renal Disease - Past Surgical History Surgical History: , CABG/Valve Surgery, Cholecystectomy, Ortho Surgery - Family History Family Medical History: Diabetes Mellitus, Cancer, [place], Sudden Cardiac , Hypertension - Social History Does patient currently use any type of tobacco product: No Have you used tobacco products in the last 12 months: No Type of Tobacco Use: None Does any household member use tobacco: No Alcohol Use: None Drug Use: None - Review of Systems Constitutional: Weakness Eyes: No Symptoms Reported ENT: No Symptoms Reported Respiratory: No Symptoms Reported Cardiovascular: No Symptoms Reported Gastrointestinal: Nausea, Vomiting, Abdominal Pain Genitourinary: Retention Musculoskeletal: Back Pain, Leg Pain Skin: No Symptoms Reported Neurological: Weakness - Physical Exam Vital Signs: Temperature 98.7 F Pulse Rate [Left Brachial] 90 Respiratory Rate 20 Blood Pressure [Left Arm] 193/87 Blood Pressure [Right Arm] 107/54 Blood Pressure 122/56 O2 Sat by Pulse Oximetry 99 Oriented: Normal Eyes: Blurred Vision Ear: Normal Nose: Normal Throat: Normal Respiratory: RLL Diminished, LLL Diminished Cardiovascular: Normal : Normal Auscultation: Bowel Sounds: Normal Palpation: Normal Tenderness: RUQ, Epigastric Skin: Decreased Turgur Musculoskeletal: Back:Lumbar, Deformity (rle amputation) Psychiatric: Anxiety, Depression Affect: Anxious, Depressed Speech Pattern: Clear, Appropriate - Assessment/Plan (1) Acute vomiting Status: Acute Plan: ADMIT, BLOOD SUGAR CONTROL, IV PEPCID, PAIN AND NAUSEA CONTROL. IV HYDRATION, CXR EKG ON ADMISSION. BP CONTROL, URINE ACETONE, SERUM ACETONE (2) Hyperglycemia Status: Acute (3) CAD (coronary artery disease) Status: Chronic (4) Chronic kidney disease (CKD) Qualifiers: Chronic kidney disease stage: stage 3 (moderate) Qualified Code(s): N18.3 - Chronic kidney disease, stage 3 (moderate) Status: Chronic (5) Diabetes mellitus type 1 Qualifiers: Diabetes mellitus complication status: with hyperglycemia Qualified Code(s) : E10.65 - Type 1 diabetes mellitus with hyperglycemia Status: Chronic (6) GERD (gastroesophageal reflux disease) Status: Chronic (7) History of right below knee amputation Status: Chronic (8) Peripheral artery disease Status: Chronic
[2017-05-27] MEDS: NORCO 10/325 TAB PO PRN (18:28)
[2017-05-27] MEDS ORDERED: FLEXERIL TAB 10 MG PO PRN (18:28)
[2017-05-27] MEDS: ZOFRAN INJ 4 MG VIAL IVP PRN (18:29)
[2017-05-27] MEDS: HumuLIN R SUBCUT PRN (18:34)
[2017-05-27] MEDS ORDERED: PROVENTIL NEB TX 0.083% 2.5MG/ 3ML NEB PRN (18:34)
[2017-05-27 18:53] LABS: APPEARANCE,URINE SLIGHTLY HAZY (CLEAR); BLOOD/HEMOGLOBIN,URINE 3+ (NEGATIVE); COLOR,URINE YELLOW (YELLOW); GLUCOSE, URINE 4+ (NEGATIVE); KETONES,URINE 1+ (NEGATIVE); PROTEIN,URINE 1+ (NEGATIVE)
[2017-05-27 18:54] LABS: BACTERIA,URINE 1+ /HPF (NEGATIVE); BILIRUBIN,URINE NEGATIVE (NEGATIVE); LEUKOCYTE ESTERASE ,URINE NEGATIVE (NEGATIVE); NITRITES,URINE NEGATIVE (NEGATIVE); SQUAMOUS EPITHELIAL CELL,UR RARE /HPF (NEGATIVE); UROBILINOGEN,URINE NORMAL (NORMAL); YEAST,URINE FEW /HPF (NEGATIVE)
[2017-05-27 19:19] LABS: SERUM ACETONE SMALL (NEGATIVE)
[2017-05-27 19:21] LABS: ALKALINE PHOSPHATASE 78 Units/L (46-116); BLOOD UREA NITROGEN 39 mg/dL (7-18); CALCIUM 8.2 mg/dL (8.5-10.1); CARBON DIOXIDE 20.7 mmol/L (21-32); CHLORIDE 99 mmol/L (98-107); CREATININE 1.91 mg/dL (0.55-1.02); SODIUM 129 mmol/L (136-145); TOTAL PROTEIN 7.2 g/dL (6.4-8.2); eGFR BLACK RACES 38 (>60); eGFR NON BLACK RACES 31 (>60)
[2017-05-27 19:32] LABS: BASOPHILS # (AUTO) 0.1 X10^3/uL (0.0-0.1); BASOPHILS % (AUTO) 1.3 % (0.2-1.0); EOSINOPHILS # (AUTO) 0.2 x10^3/uL (0.0-0.2); EOSINOPHILS % (AUTO) 2.5 % (0.9-2.9); HEMATOCRIT 30.3 % (36.0-47.0); HEMOGLOBIN 10.1 g/dL (12.0-16.0); LYMPHOCYTES # (AUTO) 0.9 X10^3/uL (1.3-2.9); LYMPHOCYTES % (AUTO) 14.7 % (21.0-51.0); MEAN CORPUSCULAR HEMOGLOBIN 31.8 pg (27.0-34.0); MEAN CORPUSCULAR HGB CONC 33.2 g/dL (33.0-35.0); MEAN CORPUSCULAR VOLUME 95.8 fL (80.0-100.0); MEAN PLATELET VOLUME 10.3 fL (7.4-11.0); MONOCYTES # (AUTO) 0.2 x10^3/uL (0.3-0.8); MONOCYTES % (AUTO) 3.4 % (0.0-13.0); NEUTROPHILS % (AUTO) 78.1 % (42.0-75.0); PLATELET COUNT 149 X10^3/uL (150.0-450.0); RED BLOOD COUNT 3.17 X10^6/uL (3.5-5.4); RED CELL DISTRIBUTION WIDTH 14.4 % (11.6-16.5); WHITE BLOOD COUNT 6.3 X10^3/uL (3.6-10.0)
[2017-05-27 19:34] LABS: COR NA(FOR HYPERGLY) 137 mmol/L (136-145)
[2017-05-27 19:37] LABS: ALANINE AMINOTRANSFERASE 17 Units/L (12-78); ASPARTATE AMINO TRANSFERASE 9 Units/L (15-37)
[2017-05-27] MEDS: SNACK - Diabetic Appropriate PO SCH (20:48)
[2017-05-27] MEDS: PEPCID 20 MG IV PREMIX* 20 MG/50 ML BAG IV SCH (20:48)
[2017-05-27] MEDS: LIPITOR TAB 20 MG PO SCH (20:48)
[2017-05-27] MEDS: MORPHINE SULFATE INJ 2 MG INJ IVP PRN (20:51)
[2017-05-28] MEDS: MORPHINE SULFATE INJ 2 MG INJ IVP PRN ×4 (03:01→19:57)
[2017-05-28] MEDS: HumuLIN R SUBCUT PRN ×4 (05:55→20:44)
[2017-05-28] MEDS: NS 1000 ML 1,000 ML IV SCH ×4 (06:01→21:01)
[2017-05-28] MEDS: ZOFRAN INJ 4 MG VIAL IVP PRN (06:35)
[2017-05-28] MEDS: NORCO 10/325 TAB PO PRN ×2 (06:43→13:28)
[2017-05-28 07:01] LABS: ALBUMIN 2.5 g/dL (3.4-5.0); CALCIUM 7.5 mg/dL (8.5-10.1); CARBON DIOXIDE 18.9 mmol/L (21-32); COR CA(FOR HYPOALB) 8.7 mg/dL (8.5-10.1); CREATININE 1.89 mg/dL (0.55-1.02); TOTAL PROTEIN 6.2 g/dL (6.4-8.2)
[2017-05-28 07:03] LABS: BASOPHILS # (AUTO) 0.1 X10^3/uL (0.0-0.1); BASOPHILS % (AUTO) 2.5 % (0.2-1.0); EOSINOPHILS # (AUTO) 0.1 x10^3/uL (0.0-0.2); EOSINOPHILS % (AUTO) 2.9 % (0.9-2.9); HEMATOCRIT 27.5 % (36.0-47.0); HEMOGLOBIN 9.5 g/dL (12.0-16.0); LYMPHOCYTES # (AUTO) 1.3 X10^3/uL (1.3-2.9); LYMPHOCYTES % (AUTO) 27.2 % (21.0-51.0); MEAN CORPUSCULAR HEMOGLOBIN 32.5 pg (27.0-34.0); MEAN CORPUSCULAR HGB CONC 34.5 g/dL (33.0-35.0); MEAN CORPUSCULAR VOLUME 94.1 fL (80.0-100.0); MEAN PLATELET VOLUME 10.3 fL (7.4-11.0); MONOCYTES # (AUTO) 0.3 x10^3/uL (0.3-0.8); MONOCYTES % (AUTO) 5.4 % (0.0-13.0); PLATELET COUNT 161 X10^3/uL (150.0-450.0); RED BLOOD COUNT 2.92 X10^6/uL (3.5-5.4); RED CELL DISTRIBUTION WIDTH 14.2 % (11.6-16.5); WHITE BLOOD COUNT 4.9 X10^3/uL (3.6-10.0)
[2017-05-28] MEDS: ASPIRIN PO SCH (09:19)
[2017-05-28] MEDS: TOPAMAX PO SCH (09:20)
[2017-05-28] MEDS: PLAVIX PO SCH (09:20)
[2017-05-28] MEDS: ZyrTEC TAB 10 MG PO SCH (09:21)
[2017-05-28] MEDS: LASIX PO SCH (09:21)
[2017-05-28] MEDS: EFFEXOR XR 75 MG CAP PO SCH (09:21)
[2017-05-28] MEDS: COZAAR PO SCH (09:21)
[2017-05-28] MEDS ORDERED: NS IV ONE (13:25)
--- NOTE | 2017-05-28 17:54 | CT ---
CT lumbar spine without contrast Indication: Back pain Technique: Helical images through the lumbar spine without contrast. Coronal and sagittal reformats a re provided. Findings: Limited images through the soft tissues of the abdomen and pelvis demonstrate scattered vas cular calcifications. There is complex peripherally calcified left upper pole renal lesion with heter ogeneous internal density measuring 3.1 x 3.3 cm on axial image 12. Renal cell carcinoma will need to be excluded. Complex cyst might appear this way with hemorrhage. Vertebral body heights are normal. There is minimal facet arthropathy caudally. No cortical lucency or malalignment seen. Facet arthropa thy and small disc bulge cause bilateral mild neural foraminal narrowing at L5-S1. Spinal canal and n eural foramen are otherwise patent. SI joint DJD noted. Impression: 1. No acute osseous abnormality. Minimal degenerative changes the SI joints and lower lumbar spine. 2. Complex left upper pole renal lesion. Further characterization with ultrasound or MR recommended t o exclude neoplasia. 3. Vascular calcifications. Reported By:
[2017-05-28] MEDS: SNACK - Diabetic Appropriate PO SCH (19:58)
[2017-05-28] MEDS: LIPITOR TAB 20 MG PO SCH (19:59)
[2017-05-28] MEDS: PEPCID 20 MG IV PREMIX* 20 MG/50 ML BAG IV SCH (20:00)
[2017-05-28] MEDS: PHENERGAN INJ 25 MG IV PRN (23:44)
[2017-05-29] MEDS: NORCO 10/325 TAB PO PRN ×2 (00:13→14:31)
[2017-05-29] MEDS: MORPHINE SULFATE INJ 2 MG INJ IVP PRN ×5 (02:39→21:21)
[2017-05-29 05:54] LABS: ALBUMIN 3.2 g/dL (3.4-5.0); CALCIUM 7.7 mg/dL (8.5-10.1); CARBON DIOXIDE 17.7 mmol/L (21-32); COR CA(FOR HYPOALB) 8.3 mg/dL (8.5-10.1); CREATININE 1.92 mg/dL (0.55-1.02); TOTAL PROTEIN 7.6 g/dL (6.4-8.2)
[2017-05-29] MEDS: HumuLIN R SUBCUT PRN ×4 (05:58→21:18)
[2017-05-29] MEDS: ZOFRAN INJ 4 MG VIAL IVP PRN (05:59)
[2017-05-29 06:20] LABS: BASOPHILS # (AUTO) 0.2 X10^3/uL (0.0-0.1); BASOPHILS % (AUTO) 3.5 % (0.2-1.0); EOSINOPHILS # (AUTO) 0.1 x10^3/uL (0.0-0.2); EOSINOPHILS % (AUTO) 2.7 % (0.9-2.9); HEMATOCRIT 32.8 % (36.0-47.0); HEMOGLOBIN 10.8 g/dL (12.0-16.0); LYMPHOCYTES # (AUTO) 0.6 X10^3/uL (1.3-2.9); LYMPHOCYTES % (AUTO) 12.7 % (21.0-51.0); MEAN CORPUSCULAR HEMOGLOBIN 31.5 pg (27.0-34.0); MEAN CORPUSCULAR HGB CONC 32.9 g/dL (33.0-35.0); MEAN CORPUSCULAR VOLUME 95.7 fL (80.0-100.0); MEAN PLATELET VOLUME 10.1 fL (7.4-11.0); MONOCYTES # (AUTO) 0.4 x10^3/uL (0.3-0.8); MONOCYTES % (AUTO) 7.9 % (0.0-13.0); NEUTROPHILS # (AUTO) 3.6 x10^3/uL (2.2-4.8); NEUTROPHILS % (AUTO) 73.2 % (42.0-75.0); PLATELET COUNT 161 X10^3/uL (150.0-450.0); RED BLOOD COUNT 3.43 X10^6/uL (3.5-5.4); RED CELL DISTRIBUTION WIDTH 14.5 % (11.6-16.5); WHITE BLOOD COUNT 4.9 X10^3/uL (3.6-10.0)
[2017-05-29] MEDS: PHENERGAN INJ 25 MG IV PRN ×2 (08:10→21:17)
[2017-05-29] MEDS: LASIX PO SCH (08:11)
[2017-05-29] MEDS: TOPAMAX PO SCH (08:11)
[2017-05-29] MEDS: PLAVIX PO SCH (08:14)
[2017-05-29] MEDS: ASPIRIN PO SCH (08:14)
[2017-05-29] MEDS: ZyrTEC TAB 10 MG PO SCH (08:14)
[2017-05-29] MEDS: COZAAR PO SCH (08:14)
[2017-05-29] MEDS: EFFEXOR XR 75 MG CAP PO SCH (08:14)
[2017-05-29] MEDS: NS 1000 ML 1,000 ML IV SCH ×2 (08:19→21:22)
--- NOTE | 2017-05-29 10:22 | RAD ---
Examination: Portable AP chest History: Dehydration, nausea and vomiting Comparison reference: 05/27/2017 Findings: Continued normal heart size with postsurgical findings. The lungs are clear. There is no ev idence for pneumonia, pulmonary edema or pneumothorax. Impression: No acute abnormality demonstrated. Reported By:
[2017-05-29] MEDS ORDERED: NS 1000 ML 1,000 ML IV ONE (10:32)
[2017-05-29] MEDS: APRESOLINE INJ 20 MG VIAL IVP PRN ×2 (11:53→16:06)
[2017-05-29] MEDS: LIPITOR TAB 20 MG PO SCH (21:17)
[2017-05-29] MEDS: SNACK - Diabetic Appropriate PO SCH (21:22)
[2017-05-29] MEDS: PEPCID 20 MG IV PREMIX* 20 MG/50 ML BAG IV SCH (21:27)
--- NOTE | 2017-05-30 00:17 | US ---
Renal ultrasound Indication: Left renal lesion on CT Comparison: CT lumbar spine 05/28/2017 Technique: Sonographic images of the kidneys were obtained per protocol. Findings: The left kidney measures 14.8 x 6.9 x 7.3 cm and the right kidney is 12.1 x 6.4 x 7.0 cm. T here is a mildly hyperechoic round lesion within the left upper pole measuring 3.3 x 2.7 x 2.8 cm, co rresponding to the CT finding. There is no nephrolithiasis or hydronephrosis bilaterally. No solid or cystic right renal lesion is identified. Impression: Indeterminate 3.3 cm left upper pole lesion. While this could represent a complex cyst, solid neoplas m is not excluded. Recommend renal protocol CT or MRI for further evaluation. Reported By:
[2017-05-30] MEDS: NS 1000 ML 1,000 ML IV SCH ×4 (02:09→23:28)
[2017-05-30] MEDS: MORPHINE SULFATE INJ 2 MG INJ IVP PRN ×4 (02:19→20:52)
[2017-05-30] MEDS: PHENERGAN INJ 25 MG IV PRN ×4 (02:19→20:51)
[2017-05-30] MEDS: APRESOLINE INJ 20 MG VIAL IVP PRN ×2 (04:15)
[2017-05-30 05:39] LABS: BASOPHILS # (AUTO) 0.1 X10^3/uL (0.0-0.1); BASOPHILS % (AUTO) 1.2 % (0.2-1.0); EOSINOPHILS % (AUTO) 0.2 % (0.9-2.9); HEMATOCRIT 34.8 % (36.0-47.0); HEMOGLOBIN 11.2 g/dL (12.0-16.0); LYMPHOCYTES # (AUTO) 0.6 X10^3/uL (1.3-2.9); LYMPHOCYTES % (AUTO) 7.4 % (21.0-51.0); MEAN CORPUSCULAR HEMOGLOBIN 31.3 pg (27.0-34.0); MEAN CORPUSCULAR VOLUME 97.7 fL (80.0-100.0); MEAN PLATELET VOLUME 10.1 fL (7.4-11.0); MONOCYTES # (AUTO) 0.2 x10^3/uL (0.3-0.8); NEUTROPHILS # (AUTO) 7.4 x10^3/uL (2.2-4.8); NEUTROPHILS % (AUTO) 89.2 % (42.0-75.0); PLATELET COUNT 190 X10^3/uL (150.0-450.0); RED BLOOD COUNT 3.56 X10^6/uL (3.5-5.4); WHITE BLOOD COUNT 8.3 X10^3/uL (3.6-10.0)
[2017-05-30 06:06] LABS: ALBUMIN 3.3 g/dL (3.4-5.0); CALCIUM 7.9 mg/dL (8.5-10.1); COR CA(FOR HYPOALB) 8.5 mg/dL (8.5-10.1); CREATININE 1.93 mg/dL (0.55-1.02); TOTAL PROTEIN 7.8 g/dL (6.4-8.2)
[2017-05-30 06:10] LABS: CARBON DIOXIDE 9.9 mmol/L (21-32)
[2017-05-30] MEDS: HumuLIN R SUBCUT PRN ×3 (07:16→21:36)
[2017-05-30] MEDS: ZOFRAN INJ 4 MG VIAL IVP PRN ×3 (08:28→23:27)
[2017-05-30] MEDS: EFFEXOR XR 75 MG CAP PO SCH (08:28)
[2017-05-30] MEDS: LASIX PO SCH (08:28)
[2017-05-30] MEDS: ASPIRIN PO SCH (08:29)
[2017-05-30] MEDS: COZAAR PO SCH (08:29)
[2017-05-30] MEDS: ZyrTEC TAB 10 MG PO SCH (08:29)
[2017-05-30] MEDS: TOPAMAX PO SCH (08:29)
[2017-05-30] MEDS: PLAVIX PO SCH (08:30)
--- NOTE | 2017-05-30 13:39 | PCM.PROG ---
Progress Note - Progress Note for Day of Date: 05/30/17 - Subjective Subjective: epigastric pain, nausea vomting, elevated blood sugar - Past Medical Family Social History Past Med/Fam/Surg Hx: No changes since H&P Allergies: Allergies No Known Drug Allergies Allergy (Verified 03/27/17 21:23) - Review of Systems ROS: No change since H&P - Vital Signs and I&O's Vital Signs: Temperature 98.8 F Pulse Rate [Left Brachial] 103 Pulse Rate 98 Respiratory Rate 18 Blood Pressure [Left Arm] 192/98 Blood Pressure [Right Arm] 131/62 Blood Pressure 122/56 O2 Sat by Pulse Oximetry 98 Intake and Output: Intake & Output 05/28/17 05/29/17 05/30/17 05/31/17 11:59 11:59 11:59 11:59 Intake Total 1250 2158 4661 Output Total 700 1200 2600 Balance 397 002 8875 - Physical Exam Oriented: Normal Eyes: Blurred Vision Ear: Normal Nose: Normal Throat: Normal Respiratory: Normal Cardiovascular: Normal : Normal Auscultation: Bowel Sounds: Normal Tenderness: RUQ, Epigastric Skin: Decreased Turgur Musculoskeletal: Back:Lumbar, Deformity (rle amputation) Psychiatric: Anxiety, Depression Affect: Anxious, Depressed Speech Pattern: Clear, Appropriate - Laboratory and Diagnostics Result Diagrams: 05/30/17 05:25 05/30/17 09:45 Labs: 05/27/17 18:50 Blood Blood Culture - Preliminary 05/27/17 17:50 Blood Blood Culture - Preliminary 05/27/17 18:14 Urine,Clean Catch Urine Culture - Final Laboratory WBC 8.3 X10^3/uL (3.6-10.0) 05/30/17 05:25 RBC 3.56 X10^6/uL (3.5-5.4) 05/30/17 05:25 Hgb 11.2 g/dL (12.0-16.0) L 05/30/17 05:25 Hct 34.8 % (36.0-47.0) L 05/30/17 05:25 MCV 97.7 fL (80.0-100.0) 05/30/17 05:25 MCH 31.3 pg (27.0-34.0) 05/30/17 05:25 MCHC 32.0 g/dL (33.0-35.0) L 05/30/17 05:25 RDW 15.0 % (11.6-16.5) 05/30/17 05:25 Plt Count 190 X10^3/uL (150.0-450.0) 05/30/17 05:25 MPV 10.1 fL (7.4-11.0) 05/30/17 05:25 Neut % 89.2 % (42.0-75.0) H 05/30/17 05:25 Lymph % 7.4 % (21.0-51.0) L 05/30/17 05:25 [place] % 2.0 % (0.0-13.0) 05/30/17 05:25 Eos % 0.2 % (0.9-2.9) L 05/30/17 05:25 Baso % 1.2 % (0.2-1.0) H 05/30/17 05:25 Neut # 7.4 x10^3/uL (2.2-4.8) H 05/30/17 05:25 Lymph # 0.6 X10^3/uL (1.3-2.9) L 05/30/17 05:25 [place] # 0.2 x10^3/uL (0.3-0.8) L 05/30/17 05:25 Eos # 0.0 x10^3/uL (0.0-0.2) 05/30/17 05:25 Baso # 0.1 X10^3/uL (0.0-0.1) 05/30/17 05:25 Absolute Nucleated RBC 0.0 /100WBC 05/30/17 05:25 Sodium 136 mmol/L (136-145) 05/30/17 05:25 Corrected Sodium 146 mmol/L (136-145) H 05/30/17 05:25 Potassium 5.1 mmol/L (3.5-5.1) 05/30/17 05:25 Chloride 102 mmol/L (98-107) 05/30/17 05:25 Carbon Dioxide 9.9 mmol/L (21-32) L* 05/30/17 05:25 BUN 28 mg/dL (7-18) H 05/30/17 05:25 Creatinine 1.93 mg/dL (0.55-1.02) H 05/30/17 05:25 Est GFR (MDRD) Af Amer 38 (>60) L 05/30/17 05:25 Est GFR (MDRD) Non-Af 31 (>60) L 05/30/17 05:25 Glucose 551 mg/dL (65-99) H* 05/30/17 09:45 POC Glucose (mg/dL) 381 mg/dL (65-99) H 05/30/17 12:45 Calcium 7.9 mg/dL (8.5-10.1) L 05/30/17 05:25 Corrected Calcium 8.5 mg/dL (8.5-10.1) 05/30/17 05:25 Total Bilirubin 0.50 mg/dL (0.2-1.0) 05/30/17 05:25 AST 10 Units/L (15-37) L 05/30/17 05:25 ALT 20 Units/L (12-78) 05/30/17 05:25 Alkaline Phosphatase 80 Units/L (46-116) 05/30/17 05:25 Total Protein 7.8 g/dL (6.4-8.2) 05/30/17 05:25 Albumin 3.3 g/dL (3.4-5.0) L 05/30/17 05:25 Globulin 4.5 g/dL (2.5-4.5) 05/30/17 05:25 Albumin/Globulin Ratio 0.7 Ratio (1.1-2.1) L 05/30/17 05:25 Specimen Type Clean catch urine 05/27/17 18:14 Urine Color Yellow (YELLOW) 05/27/17 18:14 Urine Appearance Slightly hazy (CLEAR) 05/27/17 18:14 Urine pH 5.0 (5.0 - 8.0) 05/27/17 18:14 Ur Specific [place] 1.010 (1.000-1.030) 05/27/17 18:14 Urine Protein 1+ (NEGATIVE) 05/27/17 18:14 Urine Glucose (UA) 4+ (NEGATIVE) 05/27/17 18:14 Urine Ketones 1+ (NEGATIVE) 05/27/17 18:14 Urine Occult Blood 3+ (NEGATIVE) 05/27/17 18:14 Urine Nitrite Negative (NEGATIVE) 05/27/17 18:14 Urine Bilirubin Negative (NEGATIVE) 05/27/17 18:14 Urine Acetone Small (NEGATIVE) H 05/27/17 18:14 Urine Urobilinogen Normal (NORMAL) 05/27/17 18:14 Ur Leukocyte Esterase Negative (NEGATIVE) 05/27/17 18:14 Urine RBC 7-9 /HPF (NEGATIVE) 05/27/17 18:14 Urine WBC 40-43 /HPF (NEGATIVE) 05/27/17 18:14 Ur Squamous Epith Cells Rare /HPF (NEGATIVE) 05/27/17 18:14 Urine Bacteria 1+ /HPF (NEGATIVE) 05/27/17 18:14 Urine Yeast Few /HPF (NEGATIVE) 05/27/17 18:14 Ur Culture Indicated? Yes/culture set up 05/27/17 18:14 Acetone, Semi-Quant Small (NEGATIVE) H 05/30/17 06:15 - Plan (1) Acute vomiting Status: Acute Plan: BLOOD SUGAR CONTROL, IV PEPCID, PAIN AND NAUSEA CONTROL. IV HYDRATION, ABD SERIES, NG TUBE FOR INTRACTABLE VOMITING. BP CONTROL, URINE ACETONE, SERUM ACETONE (2) Hyperglycemia Status: Acute (3) CAD (coronary artery disease) Status: Chronic (4) Chronic kidney disease (CKD) Status: Chronic Qualifiers: Chronic kidney disease stage: stage 3 (moderate) Qualified Code(s): N18.3 - Chronic kidney disease, stage 3 (moderate) (5) Diabetes mellitus type 1 Status: Chronic Qualifiers: Diabetes mellitus complication status: with hyperglycemia Qualified Code(s) : E10.65 - Type 1 diabetes mellitus with hyperglycemia (6) GERD (gastroesophageal reflux disease) Status: Chronic (7) History of right below knee amputation Status: Chronic (8) Peripheral artery disease Status: Chronic
--- NOTE | 2017-05-30 16:23 | RAD ---
Examination: Abdomen, three views History: Distention, hypertension and diabetes Findings: There is selective small-bowel distention in the mid abdomen. A small amount of gas is note d in the right colon. There is no obvious pneumoperitoneum although the images are not marked to jacqueline zahraa erect position. There are surgical clips in the right upper abdomen. Impression: Small bowel dilatation may represent ileus, although early or partial small bowel obstruc tion should be excluded. Correlate clinically with follow-up. Reported By:
[2017-05-30] MEDS: SNACK - Diabetic Appropriate PO SCH (20:49)
[2017-05-30] MEDS: LIPITOR TAB 20 MG PO SCH ×2 (20:50→21:37)
[2017-05-30] MEDS: PEPCID 20 MG IV PREMIX* 20 MG/50 ML BAG IV SCH (20:50)
[2017-05-31] MEDS: MORPHINE SULFATE INJ 2 MG INJ IVP PRN ×5 (02:49→23:44)
[2017-05-31] MEDS: PHENERGAN INJ 25 MG IV PRN (02:50)
[2017-05-31 05:29] LABS: BASOPHILS # (AUTO) 0.1 X10^3/uL (0.0-0.1); BASOPHILS % (AUTO) 1.4 % (0.2-1.0); EOSINOPHILS % (AUTO) 0.4 % (0.9-2.9); HEMATOCRIT 32.3 % (36.0-47.0); HEMOGLOBIN 10.8 g/dL (12.0-16.0); LYMPHOCYTES # (AUTO) 0.7 X10^3/uL (1.3-2.9); LYMPHOCYTES % (AUTO) 11.1 % (21.0-51.0); MEAN CORPUSCULAR HEMOGLOBIN 31.6 pg (27.0-34.0); MEAN CORPUSCULAR HGB CONC 33.3 g/dL (33.0-35.0); MEAN CORPUSCULAR VOLUME 94.7 fL (80.0-100.0); MEAN PLATELET VOLUME 9.4 fL (7.4-11.0); MONOCYTES # (AUTO) 0.2 x10^3/uL (0.3-0.8); MONOCYTES % (AUTO) 3.8 % (0.0-13.0); NEUTROPHILS # (AUTO) 5.4 x10^3/uL (2.2-4.8); NEUTROPHILS % (AUTO) 83.3 % (42.0-75.0); PLATELET COUNT 212 X10^3/uL (150.0-450.0); RED BLOOD COUNT 3.41 X10^6/uL (3.5-5.4); RED CELL DISTRIBUTION WIDTH 14.6 % (11.6-16.5); WHITE BLOOD COUNT 6.5 X10^3/uL (3.6-10.0)
[2017-05-31 05:41] LABS: ALBUMIN 3.2 g/dL (3.4-5.0); CALCIUM 7.9 mg/dL (8.5-10.1); COR CA(FOR HYPOALB) 8.5 mg/dL (8.5-10.1); TOTAL PROTEIN 7.6 g/dL (6.4-8.2)
[2017-05-31] MEDS: HumuLIN R SUBCUT PRN ×3 (06:07→17:25)
[2017-05-31] MEDS: NS 1000 ML 1,000 ML IV SCH ×2 (06:15→09:21)
[2017-05-31] MEDS: ZOFRAN INJ 4 MG VIAL IVP PRN (07:56)
[2017-05-31] MEDS: COZAAR PO SCH (09:07)
[2017-05-31] MEDS: TOPAMAX PO SCH (09:07)
[2017-05-31] MEDS: EFFEXOR XR 75 MG CAP PO SCH (09:08)
[2017-05-31] MEDS: ZyrTEC TAB 10 MG PO SCH (09:08)
[2017-05-31] MEDS: ASPIRIN PO SCH (09:08)
[2017-05-31] MEDS: LASIX PO SCH (09:08)
[2017-05-31] MEDS: PLAVIX PO SCH (09:08)
[2017-05-31] MEDS: MILK OF MAGNESIA PO SCH ×3 (09:09→20:30)
[2017-05-31] MEDS: COLACE CAP 100 MG PO SCH ×2 (11:35→20:29)
--- NOTE | 2017-05-31 12:22 | RAD ---
Examination: KUB History: Nausea, vomiting and diarrhea Comparison reference 05/30/2017 Findings: Available images are technically limited; much of the right and lower abdomen are not inclu ded. There is gas now noted within a slightly distended colon. The previously demonstrated small emily l dilatation is less impressive. A nasogastric tube is now present. Impression: Technically limited/incomplete KUB. Increasing colon gas and decreasing small bowel diste ntion consistent with improving ileus or partial SBO. Reported By:
[2017-05-31] MEDS ORDERED: NS 1/2 1000 ML IV 1,000 ML IV ONE (17:09)
[2017-05-31] MEDS: NS 1/2 1000 ML IV 1,000 ML IV SCH (17:11)
[2017-05-31] MEDS: PEPCID 20 MG IV PREMIX* 20 MG/50 ML BAG IV SCH (20:26)
[2017-05-31] MEDS: SNACK - Diabetic Appropriate PO SCH (20:27)
[2017-05-31] MEDS: LIPITOR TAB 20 MG PO SCH (20:30)
[2017-05-31] MEDS: APRESOLINE INJ 20 MG VIAL IVP PRN (23:52)
[2017-06-01] MEDS: MORPHINE SULFATE INJ 2 MG INJ IVP PRN ×5 (03:55→23:30)
[2017-06-01] MEDS: NS 1/2 1000 ML IV 1,000 ML IV SCH ×2 (05:35→10:30)
[2017-06-01 05:51] LABS: ALBUMIN 2.8 g/dL (3.4-5.0); CALCIUM 7.6 mg/dL (8.5-10.1); CARBON DIOXIDE 20.9 mmol/L (21-32); COR CA(FOR HYPOALB) 8.6 mg/dL (8.5-10.1); CREATININE 1.88 mg/dL (0.55-1.02); TOTAL PROTEIN 6.5 g/dL (6.4-8.2)
[2017-06-01 06:03] LABS: BASOPHILS # (AUTO) 0.1 X10^3/uL (0.0-0.1); BASOPHILS % (AUTO) 1.9 % (0.2-1.0); EOSINOPHILS # (AUTO) 0.2 x10^3/uL (0.0-0.2); EOSINOPHILS % (AUTO) 3.4 % (0.9-2.9); HEMATOCRIT 29.9 % (36.0-47.0); HEMOGLOBIN 9.8 g/dL (12.0-16.0); LYMPHOCYTES # (AUTO) 1.5 X10^3/uL (1.3-2.9); LYMPHOCYTES % (AUTO) 27.9 % (21.0-51.0); MEAN CORPUSCULAR HEMOGLOBIN 31.3 pg (27.0-34.0); MEAN CORPUSCULAR HGB CONC 32.9 g/dL (33.0-35.0); MEAN PLATELET VOLUME 9.7 fL (7.4-11.0); MONOCYTES # (AUTO) 0.4 x10^3/uL (0.3-0.8); MONOCYTES % (AUTO) 7.2 % (0.0-13.0); NEUTROPHILS # (AUTO) 3.3 x10^3/uL (2.2-4.8); NEUTROPHILS % (AUTO) 59.6 % (42.0-75.0); PLATELET COUNT 182 X10^3/uL (150.0-450.0); RED BLOOD COUNT 3.15 X10^6/uL (3.5-5.4); RED CELL DISTRIBUTION WIDTH 14.5 % (11.6-16.5); WHITE BLOOD COUNT 5.5 X10^3/uL (3.6-10.0)
[2017-06-01] MEDS: ZOFRAN INJ 4 MG VIAL IVP PRN ×2 (06:47→15:00)
[2017-06-01] MEDS: ASPIRIN PO SCH (09:30)
[2017-06-01] MEDS: TOPAMAX PO SCH (09:30)
[2017-06-01] MEDS: ZyrTEC TAB 10 MG PO SCH (09:31)
[2017-06-01] MEDS: COZAAR PO SCH (09:31)
[2017-06-01] MEDS: MILK OF MAGNESIA PO SCH ×2 (09:32→20:20)
[2017-06-01] MEDS: LASIX PO SCH (09:32)
[2017-06-01] MEDS: EFFEXOR XR 75 MG CAP PO SCH (09:32)
[2017-06-01] MEDS: PLAVIX PO SCH (09:42)
[2017-06-01] MEDS ORDERED: NS 1/2 1000 ML IV 1,000 ML IV ONE (10:28)
[2017-06-01] MEDS: HumuLIN R SUBCUT PRN ×3 (12:42→20:38)
[2017-06-01] MEDS ORDERED: ZOFRAN INJ 4 MG VIAL 16 MG, ATIVAN INJ 2 MG VIAL 1 MG, DECADRON INJ 10 MG in NS 50 ML I... IV PRN (13:34)
[2017-06-01] MEDS: LIPITOR TAB 20 MG PO SCH (20:17)
[2017-06-01] MEDS: PEPCID 20 MG IV PREMIX* 20 MG/50 ML BAG IV SCH (20:17)
[2017-06-01] MEDS: COLACE CAP 100 MG PO SCH (20:17)
[2017-06-01] MEDS: SNACK - Diabetic Appropriate PO SCH (20:21)
--- NOTE | 2017-06-01 22:11 | PCM.PROG ---
Progress Note - Progress Note for Day of Date: 06/01/17 - Subjective Subjective: WAS ADMITTED FOR DEHYDRATION AND INTRACTABLE NAUSEA AND VOMITING. TODAY, SHE IS ALERT AND ORIENTED, LYING IN BED ON MORNING ROUNDS. SHE CONTINUES WITH COMPLAINTS OF NAUSEA, BUT DENIES VOMITING THIS MORNING. ON EXAMINATION, SHE IS NOTED WITH AN NG TUBE TO LEFT NARE TO LOW INTERMITTANT SUCTION. HEART REGULAR IN RATE AND RHYTHM. NORMAL SINUS RHYTHM NOTED ON MILK DRYING MACHINE OPERATOR. LUNG SOUNDS DIMINISHED THROUGHOUT. ABDOMEN ROUND, SOFT, AND NOTED WITH MILD, DIFFUSE TENDERNESS. SHE IS NOTED WITH A PROSTHETIC LIMB TO THE RIGHT LEG. GOOD MOVEMENT NOTED TO ALL EXTREMITIES. VITALS THIS MORNING ARE 98.9-94-18-96%- 129/60. SHE IS HEMODYNAMICALLY STABLE. SERUM ACETONES ARE NEGATIVE THIS MORNING. TODAY, WE PLAN TO START ZOFRAN COCKTAIL IV Q8H PRN NAUSEA. OTHERWISE, WE WILL CONTINUE WITH CURRENT PLAN OF CARE. WE WILL FOLLOW UP WITH AM LABS AND CONTINUE TO MONITOR PATIENT. - Past Medical Family Social History Past Med/Fam/Surg Hx: No changes since H&P Allergies: Allergies No Known Drug Allergies Allergy (Verified 03/27/17 21:23) - Review of Systems ROS: No change since H&P - Vital Signs and I&O's Vital Signs: Temperature 98.7 F Pulse Rate [Left Brachial] 91 Pulse Rate 98 Respiratory Rate 20 Blood Pressure [Left Arm] 164/85 Blood Pressure [Right Arm] 177/80 Blood Pressure 122/56 O2 Sat by Pulse Oximetry 98 Intake and Output: Intake & Output 05/30/17 05/31/17 06/01/17 06/02/17 11:59 11:59 11:59 11:59 Intake Total 4661 1631 3112 888 Output Total 2600 1600 3060 800 Balance 2061 31 52 88 - Physical Exam Oriented: Normal Eyes: Blurred Vision Ear: Normal Nose: Normal Throat: Normal Respiratory: Normal Cardiovascular: Normal : Normal Auscultation: Bowel Sounds: Normal Palpation: Normal Tenderness: Diffuse, Mild Skin: Decreased Turgur Musculoskeletal: Back:Lumbar, Deformity (rle amputation) Psychiatric: Anxiety, Depression Affect: Anxious, Depressed Speech Pattern: Clear, Appropriate - Laboratory and Diagnostics Result Diagrams: 06/01/17 05:18 06/01/17 05:18 Labs: 05/27/17 18:50 Blood Blood Culture - Preliminary 05/27/17 17:50 Blood Blood Culture - Preliminary 05/27/17 18:14 Urine,Clean Catch Urine Culture - Final Laboratory WBC 5.5 X10^3/uL (3.6-10.0) 06/01/17 05:18 RBC 3.15 X10^6/uL (3.5-5.4) L 06/01/17 05:18 Hgb 9.8 g/dL (12.0-16.0) L 06/01/17 05:18 Hct 29.9 % (36.0-47.0) L 06/01/17 05:18 MCV 95.0 fL (80.0-100.0) 06/01/17 05:18 MCH 31.3 pg (27.0-34.0) 06/01/17 05:18 MCHC 32.9 g/dL (33.0-35.0) L 06/01/17 05:18 RDW 14.5 % (11.6-16.5) 06/01/17 05:18 Plt Count 182 X10^3/uL (150.0-450.0) 06/01/17 05:18 MPV 9.7 fL (7.4-11.0) 06/01/17 05:18 Neut % 59.6 % (42.0-75.0) 06/01/17 05:18 Lymph % 27.9 % (21.0-51.0) 06/01/17 05:18 [place] % 7.2 % (0.0-13.0) 06/01/17 05:18 Eos % 3.4 % (0.9-2.9) H 06/01/17 05:18 Baso % 1.9 % (0.2-1.0) H 06/01/17 05:18 Neut # 3.3 x10^3/uL (2.2-4.8) 06/01/17 05:18 Lymph # 1.5 X10^3/uL (1.3-2.9) 06/01/17 05:18 [place] # 0.4 x10^3/uL (0.3-0.8) 06/01/17 05:18 Eos # 0.2 x10^3/uL (0.0-0.2) 06/01/17 05:18 Baso # 0.1 X10^3/uL (0.0-0.1) 06/01/17 05:18 Absolute Nucleated RBC 0.1 /100WBC 06/01/17 05:18 Sodium 145 mmol/L (136-145) 06/01/17 05:18 Corrected Sodium 149 mmol/L (136-145) H 06/01/17 05:18 Potassium 3.6 mmol/L (3.5-5.1) 06/01/17 05:18 Chloride 113 mmol/L (98-107) H 06/01/17 05:18 Carbon Dioxide 20.9 mmol/L (21-32) L 06/01/17 05:18 BUN 23 mg/dL (7-18) H 06/01/17 05:18 Creatinine 1.88 mg/dL (0.55-1.02) H 06/01/17 05:18 Est GFR (MDRD) Af Amer 39 (>60) L 06/01/17 05:18 Est GFR (MDRD) Non-Af 32 (>60) L 06/01/17 05:18 Glucose 259 mg/dL (65-99) H 06/01/17 05:18 POC Glucose (mg/dL) 175 mg/dL (65-99) H 06/01/17 20:10 Calcium 7.6 mg/dL (8.5-10.1) L 06/01/17 05:18 Corrected Calcium 8.6 mg/dL (8.5-10.1) 06/01/17 05:18 Total Bilirubin 0.20 mg/dL (0.2-1.0) 06/01/17 05:18 AST 15 Units/L (15-37) 06/01/17 05:18 ALT 20 Units/L (12-78) 06/01/17 05:18 Alkaline Phosphatase 62 Units/L (46-116) 06/01/17 05:18 Total Protein 6.5 g/dL (6.4-8.2) 06/01/17 05:18 Albumin 2.8 g/dL (3.4-5.0) L 06/01/17 05:18 Globulin 3.7 g/dL (2.5-4.5) 06/01/17 05:18 Albumin/Globulin Ratio 0.8 Ratio (1.1-2.1) L 06/01/17 05:18 Specimen Type Clean catch urine 05/27/17 18:14 Urine Color Yellow (YELLOW) 05/27/17 18:14 Urine Appearance Slightly hazy (CLEAR) 05/27/17 18:14 Urine pH 5.0 (5.0 - 8.0) 05/27/17 18:14 Ur Specific [place] 1.010 (1.000-1.030) 05/27/17 18:14 Urine Protein 1+ (NEGATIVE) 05/27/17 18:14 Urine Glucose (UA) 4+ (NEGATIVE) 05/27/17 18:14 Urine Ketones 1+ (NEGATIVE) 05/27/17 18:14 Urine Occult Blood 3+ (NEGATIVE) 05/27/17 18:14 Urine Nitrite Negative (NEGATIVE) 05/27/17 18:14 Urine Bilirubin Negative (NEGATIVE) 05/27/17 18:14 Urine Acetone Moderate (NEGATIVE) H 05/30/17 13:32 Urine Urobilinogen Normal (NORMAL) 05/27/17 18:14 Ur Leukocyte Esterase Negative (NEGATIVE) 05/27/17 18:14 Urine RBC 7-9 /HPF (NEGATIVE) 05/27/17 18:14 Urine WBC 40-43 /HPF (NEGATIVE) 05/27/17 18:14 Ur Squamous Epith Cells Rare /HPF (NEGATIVE) 05/27/17 18:14 Urine Bacteria 1+ /HPF (NEGATIVE) 05/27/17 18:14 Urine Yeast Few /HPF (NEGATIVE) 05/27/17 18:14 Ur Culture Indicated? Yes/culture set up 05/27/17 18:14 Acetone, Semi-Quant Negative (NEGATIVE) 06/01/17 05:18 - Plan (1) DKA (diabetic ketoacidosis) Status: Acute Qualifiers: Diabetes mellitus type: type 2 Diabetes mellitus complication detail: without coma Qualified Code(s): E11.10 - Type 2 diabetes mellitus with ketoacidosis without coma Plan: CONTINUE IVF, CONTINUE HUMULIN R, CONTINUE TO MONITOR (2) Intractable nausea and vomiting Status: Acute Qualifiers: Vomiting type: unspecified Qualified Code(s): R11.2 - Nausea with vomiting , unspecified Plan: CONTINUE NG TUBE, ZOFRAN COCKTAIL, CONTINUE ZOFRAN, CONTINUE PHENERGAN, CONTINUE TO MONTIOR
[2017-06-01 23:38] LABS: GASTRIC OCCULT BLOOD POSITIVE (NEGATIVE); PH 2
[2017-06-02] MEDS ORDERED: NS 1/2 1000 ML IV 1,000 ML IV ONE ×2 (00:46→16:34)
[2017-06-02] MEDS: NS 1/2 1000 ML IV 1,000 ML IV SCH ×3 (00:49→17:43)
[2017-06-02] MEDS: MORPHINE SULFATE INJ 2 MG INJ IVP PRN ×5 (04:33→23:13)
[2017-06-02 06:11] LABS: BASOPHILS # (AUTO) 0.1 X10^3/uL (0.0-0.1); BASOPHILS % (AUTO) 1.4 % (0.2-1.0); EOSINOPHILS # (AUTO) 0.3 x10^3/uL (0.0-0.2); EOSINOPHILS % (AUTO) 4.8 % (0.9-2.9); HEMATOCRIT 30.8 % (36.0-47.0); HEMOGLOBIN 10.3 g/dL (12.0-16.0); LYMPHOCYTES # (AUTO) 1.4 X10^3/uL (1.3-2.9); LYMPHOCYTES % (AUTO) 20.7 % (21.0-51.0); MEAN CORPUSCULAR HEMOGLOBIN 31.3 pg (27.0-34.0); MEAN CORPUSCULAR HGB CONC 33.5 g/dL (33.0-35.0); MEAN CORPUSCULAR VOLUME 93.4 fL (80.0-100.0); MEAN PLATELET VOLUME 9.2 fL (7.4-11.0); MONOCYTES # (AUTO) 0.5 x10^3/uL (0.3-0.8); MONOCYTES % (AUTO) 6.8 % (0.0-13.0); NEUTROPHILS # (AUTO) 4.4 x10^3/uL (2.2-4.8); NEUTROPHILS % (AUTO) 66.3 % (42.0-75.0); PLATELET COUNT 184 X10^3/uL (150.0-450.0); RED BLOOD COUNT 3.29 X10^6/uL (3.5-5.4); RED CELL DISTRIBUTION WIDTH 13.6 % (11.6-16.5); WHITE BLOOD COUNT 6.7 X10^3/uL (3.6-10.0)
[2017-06-02] MEDS: HumuLIN R SUBCUT PRN ×3 (06:12→20:38)
[2017-06-02 06:18] LABS: ALBUMIN 2.7 g/dL (3.4-5.0); CALCIUM 7.8 mg/dL (8.5-10.1); CARBON DIOXIDE 22.5 mmol/L (21-32); COR CA(FOR HYPOALB) 8.8 mg/dL (8.5-10.1); CREATININE 1.74 mg/dL (0.55-1.02); TOTAL PROTEIN 6.4 g/dL (6.4-8.2)
[2017-06-02] MEDS ORDERED: MAG-OX TAB PO PRN (08:21)
[2017-06-02] MEDS ORDERED: K-LYTE EFFERVESCENT PO PRN (08:21)
[2017-06-02] MEDS ORDERED: POTASSIUM CHL 40 MEQ/NS 0.45% 500 ML IV PRN (08:21)
[2017-06-02] MEDS ORDERED: K-RIDER 10 MEQ/NS 100 ML 10 MEQ/100 ML BAG IV PRN (08:21)
[2017-06-02] MEDS ORDERED: POTASSIUM CHL 60 MEQ/NS 0.45% 500 ML IV PRN (08:21)
[2017-06-02] MEDS ORDERED: POTASSIUM CHLORIDE LIQ 20 MEQ UDC PO PRN (08:21)
[2017-06-02] MEDS ORDERED: MAGNESIUM SULFATE 1 GM/100 mL PREMIX 1 GM/100 ML BAG IV PRN (08:21)
[2017-06-02] MEDS: EFFEXOR XR 75 MG CAP PO SCH (09:48)
[2017-06-02] MEDS: TOPAMAX PO SCH (09:48)
[2017-06-02] MEDS: ASPIRIN PO SCH (09:48)
[2017-06-02] MEDS: ZyrTEC TAB 10 MG PO SCH (09:48)
[2017-06-02] MEDS: COZAAR PO SCH (09:48)
[2017-06-02] MEDS: LASIX PO SCH (09:48)
[2017-06-02] MEDS: PLAVIX PO SCH (09:51)
[2017-06-02] MEDS: MILK OF MAGNESIA PO SCH ×2 (09:52→20:39)
[2017-06-02] MEDS ORDERED: MORPHINE SULFATE INJ 4 MG ONE ×3 (13:55→23:09)
[2017-06-02] MEDS: LIPITOR TAB 20 MG PO SCH (20:37)
[2017-06-02] MEDS: COLACE CAP 100 MG PO SCH (20:37)
[2017-06-02] MEDS: PEPCID 20 MG IV PREMIX* 20 MG/50 ML BAG IV SCH (20:38)
[2017-06-02] MEDS: SNACK - Diabetic Appropriate PO SCH (20:38)
--- NOTE | 2017-06-02 23:19 | PCM.PROG ---
Progress Note - Progress Note for Day of Date: 06/02/17 - Subjective Subjective: WAS ADMITTED FOR DEHYDRATION AND INTRACTABLE NAUSEA AND VOMITING. TODAY, SHE IS ALERT AND ORIENTED, LYING IN BED ON MORNING ROUNDS. SHE CONTINUES WITH COMPLAINTS OF NAUSEA. ON EXAMINATION, SHE CONTINUES WITH AN NG TUBE TO LEFT NARE TO LOW INTERMITTANT SUCTION. HEART REGULAR IN RATE AND RHYTHM. NORMAL SINUS RHYTHM NOTED ON ARSON AND BOMB INVESTIGATOR. LUNG SOUNDS DIMINISHED THROUGHOUT. ABDOMEN ROUND, SOFT, AND NOTED WITH MILD, DIFFUSE TENDERNESS. SHE IS NOTED WITH A PROSTHETIC LIMB TO THE RIGHT LEG. GOOD MOVEMENT NOTED TO ALL EXTREMITIES. VITALS THIS MORNING ARE 98.3-92-20-96%-159/86. SHE IS HEMODYNAMICALLY STABLE. SERUM ACETONES ARE NEGATIVE TODAY. STAFF REPORTS THAT BLOOD WAS NOTED IN NG TUBE COLLECTION CANISTER THROUGHOUT THE NIGHT. GASTRIC OCCULT BLOOD WAS POSITIVE. SHE IS CURRENTLY RECEIVING PEPCID 20MG IV DAILY. WE WILL CHANGE THIS TO BID. OTHERWISE, WE WILL CONTINUE WITH CURRENT PLAN OF CARE TODAY. WE WILL CONTINUE TO MONITOR. - Past Medical Family Social History Past Med/Fam/Surg Hx: No changes since H&P Allergies: Allergies No Known Drug Allergies Allergy (Verified 03/27/17 21:23) - Review of Systems ROS: No change since H&P - Vital Signs and I&O's Vital Signs: Temperature 97.8 F Pulse Rate [Left Brachial] 103 Pulse Rate 100 Respiratory Rate 22 Blood Pressure [Left Arm] 159/86 Blood Pressure [Right Arm] 162/88 Blood Pressure 122/56 O2 Sat by Pulse Oximetry 98 Intake and Output: Intake & Output 05/31/17 06/01/17 06/02/17 06/03/17 11:59 11:59 11:59 11:59 Intake Total 1631 3112 2087 1692 Output Total 1600 3060 1850 1500 Balance 31 52 237 192 - Physical Exam Oriented: Normal Eyes: Blurred Vision Ear: Normal Nose: Normal Throat: Normal Respiratory: Normal Cardiovascular: Normal : Normal Auscultation: Bowel Sounds: Normal Palpation: Normal Tenderness: Diffuse, Mild Skin: Decreased Turgur Musculoskeletal: Back:Lumbar, Deformity (rle amputation) Psychiatric: Anxiety, Depression Affect: Anxious, Depressed Speech Pattern: Clear, Appropriate - Laboratory and Diagnostics Result Diagrams: 06/02/17 04:50 06/02/17 15:52 Labs: 05/27/17 18:50 Blood Blood Culture - Final 05/27/17 17:50 Blood Blood Culture - Final 05/27/17 18:14 Urine,Clean Catch Urine Culture - Final Laboratory WBC 6.7 X10^3/uL (3.6-10.0) 06/02/17 04:50 RBC 3.29 X10^6/uL (3.5-5.4) L 06/02/17 04:50 Hgb 10.3 g/dL (12.0-16.0) L 06/02/17 04:50 Hct 30.8 % (36.0-47.0) L 06/02/17 04:50 MCV 93.4 fL (80.0-100.0) 06/02/17 04:50 MCH 31.3 pg (27.0-34.0) 06/02/17 04:50 MCHC 33.5 g/dL (33.0-35.0) 06/02/17 04:50 RDW 13.6 % (11.6-16.5) 06/02/17 04:50 Plt Count 184 X10^3/uL (150.0-450.0) 06/02/17 04:50 MPV 9.2 fL (7.4-11.0) 06/02/17 04:50 Neut % 66.3 % (42.0-75.0) 06/02/17 04:50 Lymph % 20.7 % (21.0-51.0) L 06/02/17 04:50 [place] % 6.8 % (0.0-13.0) 06/02/17 04:50 Eos % 4.8 % (0.9-2.9) H 06/02/17 04:50 Baso % 1.4 % (0.2-1.0) H 06/02/17 04:50 Neut # 4.4 x10^3/uL (2.2-4.8) 06/02/17 04:50 Lymph # 1.4 X10^3/uL (1.3-2.9) 06/02/17 04:50 [place] # 0.5 x10^3/uL (0.3-0.8) 06/02/17 04:50 Eos # 0.3 x10^3/uL (0.0-0.2) H 06/02/17 04:50 Baso # 0.1 X10^3/uL (0.0-0.1) 06/02/17 04:50 Absolute Nucleated RBC 0.0 /100WBC 06/02/17 04:50 Sodium 143 mmol/L (136-145) 06/02/17 04:50 Corrected Sodium 146 mmol/L (136-145) H 06/02/17 04:50 Potassium 4.2 mmol/L (3.5-5.1) 06/02/17 15:52 Chloride 109 mmol/L (98-107) H 06/02/17 04:50 Carbon Dioxide 22.5 mmol/L (21-32) 06/02/17 04:50 BUN 19 mg/dL (7-18) H 06/02/17 04:50 Creatinine 1.74 mg/dL (0.55-1.02) H 06/02/17 04:50 Est GFR (MDRD) Af Amer 42 (>60) L 06/02/17 04:50 Est GFR (MDRD) Non-Af 35 (>60) L 06/02/17 04:50 Glucose 219 mg/dL (65-99) H 06/02/17 04:50 POC Glucose (mg/dL) 230 mg/dL (65-99) H 06/02/17 20:12 Calcium 7.8 mg/dL (8.5-10.1) L 06/02/17 04:50 Corrected Calcium 8.8 mg/dL (8.5-10.1) 06/02/17 04:50 Magnesium 1.4 mg/dL (1.7-2.9) L 06/02/17 04:50 Total Bilirubin 0.50 mg/dL (0.2-1.0) 06/02/17 04:50 AST 11 Units/L (15-37) L 06/02/17 04:50 ALT 20 Units/L (12-78) 06/02/17 04:50 Alkaline Phosphatase 64 Units/L (46-116) 06/02/17 04:50 Total Protein 6.4 g/dL (6.4-8.2) 06/02/17 04:50 Albumin 2.7 g/dL (3.4-5.0) L 06/02/17 04:50 Globulin 3.7 g/dL (2.5-4.5) 06/02/17 04:50 Albumin/Globulin Ratio 0.7 Ratio (1.1-2.1) L 06/02/17 04:50 Specimen Type Clean catch urine 05/27/17 18:14 Urine Color Yellow (YELLOW) 05/27/17 18:14 Urine Appearance Slightly hazy (CLEAR) 05/27/17 18:14 Urine pH 5.0 (5.0 - 8.0) 05/27/17 18:14 Ur Specific [place] 1.010 (1.000-1.030) 05/27/17 18:14 Urine Protein 1+ (NEGATIVE) 05/27/17 18:14 Urine Glucose (UA) 4+ (NEGATIVE) 05/27/17 18:14 Urine Ketones 1+ (NEGATIVE) 05/27/17 18:14 Urine Occult Blood 3+ (NEGATIVE) 05/27/17 18:14 Urine Nitrite Negative (NEGATIVE) 05/27/17 18:14 Urine Bilirubin Negative (NEGATIVE) 05/27/17 18:14 Urine Acetone Moderate (NEGATIVE) H 05/30/17 13:32 Urine Urobilinogen Normal (NORMAL) 05/27/17 18:14 Ur Leukocyte Esterase Negative (NEGATIVE) 05/27/17 18:14 Urine RBC 7-9 /HPF (NEGATIVE) 05/27/17 18:14 Urine WBC 40-43 /HPF (NEGATIVE) 05/27/17 18:14 Ur Squamous Epith Cells Rare /HPF (NEGATIVE) 05/27/17 18:14 Urine Bacteria 1+ /HPF (NEGATIVE) 05/27/17 18:14 Urine Yeast Few /HPF (NEGATIVE) 05/27/17 18:14 Ur Culture Indicated? Yes/culture set up 05/27/17 18:14 Gastric Occult Blood Positive (NEGATIVE) A 06/01/17 23:10 Stool pH 2 06/01/17 23:10 Acetone, Semi-Quant Negative (NEGATIVE) 06/02/17 04:50 - Plan (1) DKA (diabetic ketoacidosis) Status: Acute Qualifiers: Diabetes mellitus type: type 2 Diabetes mellitus complication detail: without coma Qualified Code(s): E11.10 - Type 2 diabetes mellitus with ketoacidosis without coma Plan: CONTINUE IVF, CONTINUE HUMULIN R, CONTINUE TO MONITOR (2) Intractable nausea and vomiting Status: Acute Qualifiers: Vomiting type: unspecified Qualified Code(s): R11.2 - Nausea with vomiting , unspecified Plan: CONTINUE NG TUBE, ZOFRAN COCKTAIL, CONTINUE ZOFRAN, CONTINUE PHENERGAN, CONTINUE TO MONTIOR
[2017-06-02] MEDS: ZOFRAN INJ 4 MG VIAL IVP PRN (23:25)
[2017-06-03] MEDS: MORPHINE SULFATE INJ 2 MG INJ IVP PRN (03:48)
[2017-06-03] MEDS ORDERED: NS 1/2 1000 ML IV 1,000 ML IV ONE ×2 (05:40→20:00)
[2017-06-03] MEDS: NS 1/2 1000 ML IV 1,000 ML IV SCH ×3 (05:43→20:01)
[2017-06-03 06:10] LABS: BASOPHILS # (AUTO) 0.1 X10^3/uL (0.0-0.1); BASOPHILS % (AUTO) 1.4 % (0.2-1.0); EOSINOPHILS # (AUTO) 0.4 x10^3/uL (0.0-0.2); EOSINOPHILS % (AUTO) 4.2 % (0.9-2.9); HEMATOCRIT 31.5 % (36.0-47.0); HEMOGLOBIN 10.6 g/dL (12.0-16.0); LYMPHOCYTES # (AUTO) 1.3 X10^3/uL (1.3-2.9); LYMPHOCYTES % (AUTO) 15.6 % (21.0-51.0); MEAN CORPUSCULAR HEMOGLOBIN 31.3 pg (27.0-34.0); MEAN CORPUSCULAR HGB CONC 33.6 g/dL (33.0-35.0); MEAN CORPUSCULAR VOLUME 92.9 fL (80.0-100.0); MEAN PLATELET VOLUME 9.5 fL (7.4-11.0); MONOCYTES # (AUTO) 0.6 x10^3/uL (0.3-0.8); MONOCYTES % (AUTO) 6.8 % (0.0-13.0); NEUTROPHILS # (AUTO) 6.1 x10^3/uL (2.2-4.8); PLATELET COUNT 182 X10^3/uL (150.0-450.0); RED BLOOD COUNT 3.39 X10^6/uL (3.5-5.4); RED CELL DISTRIBUTION WIDTH 13.2 % (11.6-16.5); WHITE BLOOD COUNT 8.4 X10^3/uL (3.6-10.0)
[2017-06-03 06:30] LABS: ALBUMIN 2.7 g/dL (3.4-5.0); CARBON DIOXIDE 21.4 mmol/L (21-32); CREATININE 1.58 mg/dL (0.55-1.02); TOTAL PROTEIN 6.5 g/dL (6.4-8.2)
[2017-06-03] MEDS: MORPHINE SULFATE INJ 4 MG IVP PRN ×4 (08:10→20:02)
[2017-06-03] MEDS: COZAAR PO SCH (08:11)
[2017-06-03] MEDS: ASPIRIN PO SCH (08:11)
[2017-06-03] MEDS: LASIX PO SCH (08:11)
[2017-06-03] MEDS: EFFEXOR XR 75 MG CAP PO SCH (08:11)
[2017-06-03] MEDS: MILK OF MAGNESIA PO SCH ×2 (08:12→20:03)
[2017-06-03] MEDS: PEPCID 20 MG IV PREMIX* 20 MG/50 ML BAG IV SCH ×2 (08:12→20:03)
[2017-06-03] MEDS: PLAVIX PO SCH (08:12)
[2017-06-03] MEDS: TOPAMAX PO SCH (08:12)
[2017-06-03] MEDS: ZyrTEC TAB 10 MG PO SCH (08:13)
--- NOTE | 2017-06-03 09:51 | RAD ---
Examination: Abdomen/KUB History: Nausea and vomiting Comparison reference 05/30/2017 Impression: There is persistent small bowel dilatation although a significant amount of colon gas is now seen. There is no evidence for pneumatosis or pathologic calcification. Impression: Intestinal gas pattern consistent with persistent ileus or partial small bowel obstructio n. There is more colon gas present now than before. Follow-up imaging with CT should be considered if symptoms persist. Reported By:
[2017-06-03] MEDS ORDERED: DULCOLAX SUPPOSITORY 10 MG RECTAL STA (10:08)
[2017-06-03] MEDS: ZITHROMAX INJ 500 MG VIAL 250 MG in NS 250 ML IV 250 ML IV SCH (10:49)
[2017-06-03] MEDS: REGLAN INJ 10 MG VIAL IVP SCH ×3 (10:49→20:01)
[2017-06-03] MEDS ORDERED: PHARMACY CONSULT - DOSE _____ XX SCH (11:00)
[2017-06-03] MEDS: HumuLIN R SUBCUT PRN ×3 (11:54→20:03)
--- NOTE | 2017-06-03 12:52 | PCM.PROG ---
Progress Note - Progress Note for Day of Date: 06/03/17 - Subjective Subjective: WAS ADMITTED FOR DEHYDRATION AND INTRACTABLE NAUSEA AND VOMITING. TODAY, SHE IS ALERT AND ORIENTED, LYING IN BED ON MORNING ROUNDS. SHE CONTINUES WITH COMPLAINTS OF NAUSEA. ON EXAMINATION, SHE CONTINUES WITH AN NG TUBE TO LEFT NARE TO LOW INTERMITTANT SUCTION. HEART REGULAR IN RATE AND RHYTHM. NORMAL SINUS RHYTHM NOTED ON PROVIDER EDUCATION SPECIALIST. LUNG SOUNDS DIMINISHED THROUGHOUT. ABDOMEN ROUND, SOFT, AND NOTED WITH MILD, DIFFUSE TENDERNESS. SHE IS NOTED WITH A PROSTHETIC LIMB TO THE RIGHT LEG. GOOD MOVEMENT NOTED TO ALL EXTREMITIES. PT DENIES ANY NASUEA THIS AM. - Past Medical Family Social History Past Med/Fam/Surg Hx: No changes since H&P Allergies: Allergies No Known Drug Allergies Allergy (Verified 03/27/17 21:23) - Review of Systems ROS: No change since H&P - Vital Signs and I&O's Vital Signs: Temperature 98.1 F Pulse Rate [Left Brachial] 98 Pulse Rate 102 Respiratory Rate 22 Blood Pressure [Left Arm] 129/73 Blood Pressure [Right Arm] 162/88 Blood Pressure 122/56 O2 Sat by Pulse Oximetry 97 Intake and Output: Intake & Output 06/01/17 06/02/17 06/03/17 06/04/17 11:59 11:59 11:59 11:59 Intake Total 3112 2087 2344 Output Total 3060 1850 2750 Balance 52 237 -406 - Physical Exam Oriented: Normal Eyes: Blurred Vision Ear: Normal Nose: Normal Throat: Normal Respiratory: Normal Cardiovascular: Normal : Normal Auscultation: Bowel Sounds: Decreased Tenderness: Diffuse, Mild Skin: Decreased Turgur Musculoskeletal: Back:Lumbar, Deformity (rle amputation) Psychiatric: Anxiety, Depression Affect: Anxious, Depressed Speech Pattern: Clear, Appropriate - Laboratory and Diagnostics Result Diagrams: 06/03/17 04:55 06/03/17 04:55 Labs: 05/27/17 18:50 Blood Blood Culture - Final 05/27/17 17:50 Blood Blood Culture - Final 05/27/17 18:14 Urine,Clean Catch Urine Culture - Final Laboratory WBC 8.4 X10^3/uL (3.6-10.0) 06/03/17 04:55 RBC 3.39 X10^6/uL (3.5-5.4) L 06/03/17 04:55 Hgb 10.6 g/dL (12.0-16.0) L 06/03/17 04:55 Hct 31.5 % (36.0-47.0) L 06/03/17 04:55 MCV 92.9 fL (80.0-100.0) 06/03/17 04:55 MCH 31.3 pg (27.0-34.0) 06/03/17 04:55 MCHC 33.6 g/dL (33.0-35.0) 06/03/17 04:55 RDW 13.2 % (11.6-16.5) 06/03/17 04:55 Plt Count 182 X10^3/uL (150.0-450.0) 06/03/17 04:55 MPV 9.5 fL (7.4-11.0) 06/03/17 04:55 Neut % 72.0 % (42.0-75.0) 06/03/17 04:55 Lymph % 15.6 % (21.0-51.0) L 06/03/17 04:55 [place] % 6.8 % (0.0-13.0) 06/03/17 04:55 Eos % 4.2 % (0.9-2.9) H 06/03/17 04:55 Baso % 1.4 % (0.2-1.0) H 06/03/17 04:55 Neut # 6.1 x10^3/uL (2.2-4.8) H 06/03/17 04:55 Lymph # 1.3 X10^3/uL (1.3-2.9) 06/03/17 04:55 [place] # 0.6 x10^3/uL (0.3-0.8) 06/03/17 04:55 Eos # 0.4 x10^3/uL (0.0-0.2) H 06/03/17 04:55 Baso # 0.1 X10^3/uL (0.0-0.1) 06/03/17 04:55 Absolute Nucleated RBC 0.0 /100WBC 06/03/17 04:55 Sodium 140 mmol/L (136-145) 06/03/17 04:55 Corrected Sodium 143 mmol/L (136-145) 06/03/17 04:55 Potassium 3.9 mmol/L (3.5-5.1) 06/03/17 04:55 Chloride 106 mmol/L (98-107) 06/03/17 04:55 Carbon Dioxide 21.4 mmol/L (21-32) 06/03/17 04:55 BUN 15 mg/dL (7-18) 06/03/17 04:55 Creatinine 1.58 mg/dL (0.55-1.02) H 06/03/17 04:55 Est GFR (MDRD) Af Amer 47 (>60) L 06/03/17 04:55 Est GFR (MDRD) Non-Af 39 (>60) L 06/03/17 04:55 Glucose 228 mg/dL (65-99) H 06/03/17 04:55 POC Glucose (mg/dL) 212 mg/dL (65-99) H 06/03/17 11:43 Calcium 8.0 mg/dL (8.5-10.1) L 06/03/17 04:55 Corrected Calcium 9.0 mg/dL (8.5-10.1) 06/03/17 04:55 Magnesium 1.4 mg/dL (1.7-2.9) L 06/02/17 04:50 Total Bilirubin 0.60 mg/dL (0.2-1.0) 06/03/17 04:55 AST 7 Units/L (15-37) L 06/03/17 04:55 ALT 17 Units/L (12-78) 06/03/17 04:55 Alkaline Phosphatase 68 Units/L (46-116) 06/03/17 04:55 Total Protein 6.5 g/dL (6.4-8.2) 06/03/17 04:55 Albumin 2.7 g/dL (3.4-5.0) L 06/03/17 04:55 Globulin 3.8 g/dL (2.5-4.5) 06/03/17 04:55 Albumin/Globulin Ratio 0.7 Ratio (1.1-2.1) L 06/03/17 04:55 Specimen Type Clean catch urine 05/27/17 18:14 Urine Color Yellow (YELLOW) 05/27/17 18:14 Urine Appearance Slightly hazy (CLEAR) 05/27/17 18:14 Urine pH 5.0 (5.0 - 8.0) 05/27/17 18:14 Ur Specific [place] 1.010 (1.000-1.030) 05/27/17 18:14 Urine Protein 1+ (NEGATIVE) 05/27/17 18:14 Urine Glucose (UA) 4+ (NEGATIVE) 05/27/17 18:14 Urine Ketones 1+ (NEGATIVE) 05/27/17 18:14 Urine Occult Blood 3+ (NEGATIVE) 05/27/17 18:14 Urine Nitrite Negative (NEGATIVE) 05/27/17 18:14 Urine Bilirubin Negative (NEGATIVE) 05/27/17 18:14 Urine Acetone Moderate (NEGATIVE) H 05/30/17 13:32 Urine Urobilinogen Normal (NORMAL) 05/27/17 18:14 Ur Leukocyte Esterase Negative (NEGATIVE) 05/27/17 18:14 Urine RBC 7-9 /HPF (NEGATIVE) 05/27/17 18:14 Urine WBC 40-43 /HPF (NEGATIVE) 05/27/17 18:14 Ur Squamous Epith Cells Rare /HPF (NEGATIVE) 05/27/17 18:14 Urine Bacteria 1+ /HPF (NEGATIVE) 05/27/17 18:14 Urine Yeast Few /HPF (NEGATIVE) 05/27/17 18:14 Ur Culture Indicated? Yes/culture set up 05/27/17 18:14 Gastric Occult Blood Positive (NEGATIVE) A 06/01/17 23:10 Stool pH 2 06/01/17 23:10 Acetone, Semi-Quant Small (NEGATIVE) H 06/03/17 04:55 - Plan (1) Acute vomiting Status: Acute Plan: BLOOD SUGAR CONTROL, IV PEPCID, PAIN AND NAUSEA CONTROL. IV HYDRATION, NG TUBE AT LIS, REGLAN AND ZITHROMAX ORDERED. DULCOLAX SUPP X 1, CT ABD PELVIS WITHOUT CONTRAST. BP CONTROL, URINE ACETONE, SERUM ACETONE (2) SBO (small bowel obstruction) Status: Acute (3) Hyperglycemia Status: Acute (4) CAD (coronary artery disease) Status: Chronic (5) Chronic kidney disease (CKD) Status: Chronic Qualifiers: Chronic kidney disease stage: stage 3 (moderate) Qualified Code(s): N18.3 - Chronic kidney disease, stage 3 (moderate) (6) Diabetes mellitus type 1 Status: Chronic Qualifiers: Diabetes mellitus complication status: with hyperglycemia Qualified Code(s) : E10.65 - Type 1 diabetes mellitus with hyperglycemia (7) GERD (gastroesophageal reflux disease) Status: Chronic (8) History of right below knee amputation Status: Chronic (9) Peripheral artery disease Status: Chronic
--- NOTE | 2017-06-03 18:22 | CT ---
CT ABDOMEN AND PELVIS WITH ORAL CONTRAST CLINICAL HISTORY: 36-year-old female with nausea, vomiting, diarrhea and dehydration. History of hype rtension, diabetes and bilateral amputations. COMPARISON: CT of the abdomen and pelvis 02/21/2016. TECHNIQUE: Multiple contiguous computed tomographic axial images of the abdomen and pelvis were obtai ham[place] without the use of intravenous contrast. ORAL CONTRAST WAS ADMINISTERED. Images were reformatted in the coronal and sagittal planes. FINDINGS: The lung bases demonstrate no evidence of focal air-space opacification, pleural effusion, pneumothor ax, or suspicious pulmonary nodules. Heart is not enlarged, no pericardial effusion. Severe calcific atherosclerosis of the coronary vessels. Stable hepatosplenomegaly with diffuse hepatic steatosis and no focal mass lesion or biliary ductal d ilatation. The pancreas is moderately fatty replaced and unchanged. Status post cholecystectomy. Adrenal glands are unremarkable bilaterally. Stable left renal cyst with peripheral calcifications an d mild bilateral renal atrophy with a stable perinephric stranding. There are no nephroureteral stone s or perinephric fluid collections. There is no evidence of hydroureteronephrosis and the ureters run in an unobstructed course to a well distended urinary bladder. Small foci of dependent air within th e bladder, correlate with recent instrumentation. The uterus is anteverted and normal in size. The ovaries, vagina and perineum are within normal limi ts. Bilateral tubal ligation clips with multiple pelvic phleboliths. The appendix is normal in appearance. Oral contrast reaches the transverse colon. The bowel is witho ut obstruction or inflammation and there is no free fluid or free air within the peritoneal cavity. Scattered, nonspecific lymph nodes within the retroperitoneum, not significantly changed. There are n o pathologically enlarged lymph nodes in the abdomen or pelvis. Severe atherosclerotic calcification of the arteriovascular structures of the common iliac arteries a nd its branches extending into the pelvis and proximal thighs. Soft tissues are normal. The osseous structures are intact without fracture or malalignment. IMPRESSION: 1. No acute intra-abdominal or intrapelvic process. 2. Multiple stable chronic findings as above. Reported By:
[2017-06-03] MEDS: COLACE CAP 100 MG PO SCH (20:01)
[2017-06-03] MEDS: LIPITOR TAB 20 MG PO SCH (20:01)
[2017-06-03] MEDS: SNACK - Diabetic Appropriate PO SCH (20:03)
[2017-06-03] MEDS: ZOFRAN INJ 4 MG VIAL IVP PRN (20:03)
[2017-06-04] MEDS: MORPHINE SULFATE INJ 4 MG IVP PRN ×6 (00:06→23:31)
[2017-06-04] MEDS: REGLAN INJ 10 MG VIAL IVP SCH ×4 (05:29→19:59)
[2017-06-04 05:32] LABS: BASOPHILS # (AUTO) 0.1 X10^3/uL (0.0-0.1); BASOPHILS % (AUTO) 1.2 % (0.2-1.0); EOSINOPHILS # (AUTO) 0.3 x10^3/uL (0.0-0.2); EOSINOPHILS % (AUTO) 4.8 % (0.9-2.9); HEMATOCRIT 28.3 % (36.0-47.0); HEMOGLOBIN 9.5 g/dL (12.0-16.0); LYMPHOCYTES # (AUTO) 1.8 X10^3/uL (1.3-2.9); LYMPHOCYTES % (AUTO) 26.8 % (21.0-51.0); MEAN CORPUSCULAR HEMOGLOBIN 31.4 pg (27.0-34.0); MEAN CORPUSCULAR HGB CONC 33.7 g/dL (33.0-35.0); MEAN CORPUSCULAR VOLUME 93.1 fL (80.0-100.0); MEAN PLATELET VOLUME 9.7 fL (7.4-11.0); MONOCYTES # (AUTO) 0.5 x10^3/uL (0.3-0.8); MONOCYTES % (AUTO) 7.5 % (0.0-13.0); NEUTROPHILS # (AUTO) 3.9 x10^3/uL (2.2-4.8); NEUTROPHILS % (AUTO) 59.7 % (42.0-75.0); PLATELET COUNT 165 X10^3/uL (150.0-450.0); RED BLOOD COUNT 3.04 X10^6/uL (3.5-5.4); RED CELL DISTRIBUTION WIDTH 13.4 % (11.6-16.5); WHITE BLOOD COUNT 6.6 X10^3/uL (3.6-10.0)
[2017-06-04 05:48] LABS: ALBUMIN 2.4 g/dL (3.4-5.0); CALCIUM 7.8 mg/dL (8.5-10.1); CARBON DIOXIDE 25.1 mmol/L (21-32); COR CA(FOR HYPOALB) 9.1 mg/dL (8.5-10.1); CREATININE 1.77 mg/dL (0.55-1.02); TOTAL PROTEIN 6.1 g/dL (6.4-8.2)
--- NOTE | 2017-06-04 07:04 | RAD ---
Examination: Portable KUB History: Nausea and vomiting follow-up Comparison reference 06/03/2017 Findings: There is persistent mild gaseous distention of the colon. Dilute contrast material is prese nt in the ascending colon. No small bowel distention is seen. Impression: Interval improvement in appearance of the colon distention. There is no current evidence to suggest small bowel obstruction. The Reported By:
[2017-06-04] MEDS: COZAAR PO SCH (08:03)
[2017-06-04] MEDS: ASPIRIN PO SCH (08:03)
[2017-06-04] MEDS: PEPCID 20 MG IV PREMIX* 20 MG/50 ML BAG IV SCH (08:04)
[2017-06-04] MEDS: EFFEXOR XR 75 MG CAP PO SCH (08:04)
[2017-06-04] MEDS: LASIX PO SCH (08:04)
[2017-06-04] MEDS: MILK OF MAGNESIA PO SCH ×2 (08:04→19:59)
[2017-06-04] MEDS: PLAVIX PO SCH (08:05)
[2017-06-04] MEDS: NS 1/2 1000 ML IV 1,000 ML IV SCH ×2 (08:05→23:31)
[2017-06-04] MEDS: TOPAMAX PO SCH (08:05)
[2017-06-04] MEDS: ZyrTEC TAB 10 MG PO SCH (08:06)
[2017-06-04] MEDS: ZITHROMAX INJ 500 MG VIAL 250 MG in NS 250 ML IV 250 ML IV SCH (08:06)
[2017-06-04] MEDS: HumuLIN R SUBCUT PRN ×3 (11:25→20:00)
--- NOTE | 2017-06-04 12:45 | PCM.PROG ---
Progress Note - Progress Note for Day of Date: 06/04/17 - Subjective Subjective: WAS ADMITTED FOR DEHYDRATION AND INTRACTABLE NAUSEA AND VOMITING. TODAY, SHE IS ALERT AND ORIENTED, LYING IN BED ON MORNING ROUNDS. DENIES ANY NAUSEA OR VOMITING THIS AM. DENIES ABDOMINAL PAIN, HAD LARGE BOWEL MOVEMENT WITH IMPROVED ABDOMINAL DISTENTION. PLAN TO ADVANCE DIET AND DISCUSSED DISCHARGE PLANS IF TOLERATE DIET. SHE IS NOTED WITH A PROSTHETIC LIMB TO THE RIGHT LEG. GOOD MOVEMENT NOTED TO ALL EXTREMITIES. - Past Medical Family Social History Past Med/Fam/Surg Hx: No changes since H&P Allergies: Allergies No Known Drug Allergies Allergy (Verified 03/27/17 21:23) - Review of Systems ROS: No change since H&P - Vital Signs and I&O's Vital Signs: Temperature 98.1 F Pulse Rate [Left Brachial] 84 Pulse Rate 87 Respiratory Rate 20 Blood Pressure [Left Arm] 112/72 Blood Pressure [Right Arm] 118/70 Blood Pressure 122/56 O2 Sat by Pulse Oximetry 98 Intake and Output: Intake & Output 06/02/17 06/03/17 06/04/17 06/05/17 11:59 11:59 11:59 11:59 Intake Total 2087 2344 1830 Output Total 1850 2750 2200 Balance 580 -874 -370 - Physical Exam Oriented: Normal Eyes: Blurred Vision Ear: Normal Nose: Normal Throat: Normal Respiratory: Normal Cardiovascular: Normal : Normal Auscultation: Bowel Sounds: Normal, Decreased Tenderness: Normal Skin: Decreased Turgur Musculoskeletal: Back:Lumbar, Deformity (rle amputation) Psychiatric: Anxiety, Depression Affect: Anxious, Depressed Speech Pattern: Clear, Appropriate - Laboratory and Diagnostics Result Diagrams: 06/04/17 04:40 06/04/17 04:40 Labs: 05/27/17 18:50 Blood Blood Culture - Final 05/27/17 17:50 Blood Blood Culture - Final 05/27/17 18:14 Urine,Clean Catch Urine Culture - Final Laboratory WBC 6.6 X10^3/uL (3.6-10.0) 06/04/17 04:40 RBC 3.04 X10^6/uL (3.5-5.4) L 06/04/17 04:40 Hgb 9.5 g/dL (12.0-16.0) L 06/04/17 04:40 Hct 28.3 % (36.0-47.0) L 06/04/17 04:40 MCV 93.1 fL (80.0-100.0) 06/04/17 04:40 MCH 31.4 pg (27.0-34.0) 06/04/17 04:40 MCHC 33.7 g/dL (33.0-35.0) 06/04/17 04:40 RDW 13.4 % (11.6-16.5) 06/04/17 04:40 Plt Count 165 X10^3/uL (150.0-450.0) 06/04/17 04:40 MPV 9.7 fL (7.4-11.0) 06/04/17 04:40 Neut % 59.7 % (42.0-75.0) 06/04/17 04:40 Lymph % 26.8 % (21.0-51.0) 06/04/17 04:40 [place] % 7.5 % (0.0-13.0) 06/04/17 04:40 Eos % 4.8 % (0.9-2.9) H 06/04/17 04:40 Baso % 1.2 % (0.2-1.0) H 06/04/17 04:40 Neut # 3.9 x10^3/uL (2.2-4.8) 06/04/17 04:40 Lymph # 1.8 X10^3/uL (1.3-2.9) 06/04/17 04:40 [place] # 0.5 x10^3/uL (0.3-0.8) 06/04/17 04:40 Eos # 0.3 x10^3/uL (0.0-0.2) H 06/04/17 04:40 Baso # 0.1 X10^3/uL (0.0-0.1) 06/04/17 04:40 Absolute Nucleated RBC 0.0 /100WBC 06/04/17 04:40 Sodium 141 mmol/L (136-145) 06/04/17 04:40 Corrected Sodium 143 mmol/L (136-145) 06/04/17 04:40 Potassium 3.4 mmol/L (3.5-5.1) L 06/04/17 04:40 Chloride 107 mmol/L (98-107) 06/04/17 04:40 Carbon Dioxide 25.1 mmol/L (21-32) 06/04/17 04:40 BUN 16 mg/dL (7-18) 06/04/17 04:40 Creatinine 1.77 mg/dL (0.55-1.02) H 06/04/17 04:40 Est GFR (MDRD) Af Amer 42 (>60) L 06/04/17 04:40 Est GFR (MDRD) Non-Af 34 (>60) L 06/04/17 04:40 Glucose 175 mg/dL (65-99) H 06/04/17 04:40 POC Glucose (mg/dL) 200 mg/dL (65-99) H 06/04/17 11:09 Calcium 7.8 mg/dL (8.5-10.1) L 06/04/17 04:40 Corrected Calcium 9.1 mg/dL (8.5-10.1) 06/04/17 04:40 Magnesium 1.4 mg/dL (1.7-2.9) L 06/02/17 04:50 Total Bilirubin 0.50 mg/dL (0.2-1.0) 06/04/17 04:40 AST 8 Units/L (15-37) L 06/04/17 04:40 ALT 15 Units/L (12-78) 06/04/17 04:40 Alkaline Phosphatase 58 Units/L (46-116) 06/04/17 04:40 Total Protein 6.1 g/dL (6.4-8.2) L 06/04/17 04:40 Albumin 2.4 g/dL (3.4-5.0) L 06/04/17 04:40 Globulin 3.7 g/dL (2.5-4.5) 06/04/17 04:40 Albumin/Globulin Ratio 0.6 Ratio (1.1-2.1) L 06/04/17 04:40 Amylase 19 Units/L (25-115) L 06/04/17 04:40 Lipase 154 Units/L (73-393) 06/04/17 04:40 Specimen Type Clean catch urine 05/27/17 18:14 Urine Color Yellow (YELLOW) 05/27/17 18:14 Urine Appearance Slightly hazy (CLEAR) 05/27/17 18:14 Urine pH 5.0 (5.0 - 8.0) 05/27/17 18:14 Ur Specific [place] 1.010 (1.000-1.030) 05/27/17 18:14 Urine Protein 1+ (NEGATIVE) 05/27/17 18:14 Urine Glucose (UA) 4+ (NEGATIVE) 05/27/17 18:14 Urine Ketones 1+ (NEGATIVE) 05/27/17 18:14 Urine Occult Blood 3+ (NEGATIVE) 05/27/17 18:14 Urine Nitrite Negative (NEGATIVE) 05/27/17 18:14 Urine Bilirubin Negative (NEGATIVE) 05/27/17 18:14 Urine Acetone Moderate (NEGATIVE) H 05/30/17 13:32 Urine Urobilinogen Normal (NORMAL) 05/27/17 18:14 Ur Leukocyte Esterase Negative (NEGATIVE) 05/27/17 18:14 Urine RBC 7-9 /HPF (NEGATIVE) 05/27/17 18:14 Urine WBC 40-43 /HPF (NEGATIVE) 05/27/17 18:14 Ur Squamous Epith Cells Rare /HPF (NEGATIVE) 05/27/17 18:14 Urine Bacteria 1+ /HPF (NEGATIVE) 05/27/17 18:14 Urine Yeast Few /HPF (NEGATIVE) 05/27/17 18:14 Ur Culture Indicated? Yes/culture set up 05/27/17 18:14 Gastric Occult Blood Positive (NEGATIVE) A 06/01/17 23:10 Stool pH 2 06/01/17 23:10 Acetone, Semi-Quant Small (NEGATIVE) H 06/03/17 04:55 - Plan (1) Acute vomiting Status: Acute Plan: BLOOD SUGAR CONTROL, IV PEPCID, PAIN AND NAUSEA CONTROL. IV HYDRATION, REGLAN AND ZITHROMAX ORDERED. ABDOMINAL DISTENTION IMPROVED, KUB NORMAL. ADVANCE DIET (2) SBO (small bowel obstruction) Status: Acute (3) Hyperglycemia Status: Acute (4) CAD (coronary artery disease) Status: Chronic (5) Chronic kidney disease (CKD) Status: Chronic Qualifiers: Chronic kidney disease stage: stage 3 (moderate) Qualified Code(s): N18.3 - Chronic kidney disease, stage 3 (moderate) (6) Diabetes mellitus type 1 Status: Chronic Qualifiers: Diabetes mellitus complication status: with hyperglycemia Qualified Code(s) : E10.65 - Type 1 diabetes mellitus with hyperglycemia (7) GERD (gastroesophageal reflux disease) Status: Chronic (8) History of right below knee amputation Status: Chronic (9) Peripheral artery disease Status: Chronic
[2017-06-04] MEDS ORDERED: NS 1/2 1000 ML IV 1,000 ML IV ONE (16:40)
[2017-06-04] MEDS: SNACK - Diabetic Appropriate PO SCH (19:58)
[2017-06-04] MEDS: COLACE CAP 100 MG PO SCH (19:59)
[2017-06-04] MEDS: LIPITOR TAB 20 MG PO SCH (19:59)
[2017-06-05 05:23] LABS: BASOPHILS # (AUTO) 0.1 X10^3/uL (0.0-0.1); BASOPHILS % (AUTO) 1.4 % (0.2-1.0); EOSINOPHILS # (AUTO) 0.2 x10^3/uL (0.0-0.2); EOSINOPHILS % (AUTO) 4.2 % (0.9-2.9); HEMATOCRIT 29.4 % (36.0-47.0); HEMOGLOBIN 9.9 g/dL (12.0-16.0); LYMPHOCYTES # (AUTO) 1.5 X10^3/uL (1.3-2.9); LYMPHOCYTES % (AUTO) 27.7 % (21.0-51.0); MEAN CORPUSCULAR HEMOGLOBIN 31.2 pg (27.0-34.0); MEAN CORPUSCULAR HGB CONC 33.6 g/dL (33.0-35.0); MEAN CORPUSCULAR VOLUME 92.9 fL (80.0-100.0); MEAN PLATELET VOLUME 9.6 fL (7.4-11.0); MONOCYTES # (AUTO) 0.4 x10^3/uL (0.3-0.8); MONOCYTES % (AUTO) 7.3 % (0.0-13.0); NEUTROPHILS # (AUTO) 3.2 x10^3/uL (2.2-4.8); NEUTROPHILS % (AUTO) 59.4 % (42.0-75.0); PLATELET COUNT 169 X10^3/uL (150.0-450.0); RED BLOOD COUNT 3.16 X10^6/uL (3.5-5.4); RED CELL DISTRIBUTION WIDTH 13.4 % (11.6-16.5); WHITE BLOOD COUNT 5.4 X10^3/uL (3.6-10.0)
[2017-06-05 05:33] LABS: ALBUMIN 2.5 g/dL (3.4-5.0); CALCIUM 7.9 mg/dL (8.5-10.1); CARBON DIOXIDE 23.2 mmol/L (21-32); COR CA(FOR HYPOALB) 9.1 mg/dL (8.5-10.1); CREATININE 1.78 mg/dL (0.55-1.02); TOTAL PROTEIN 6.2 g/dL (6.4-8.2)
[2017-06-05] MEDS: MORPHINE SULFATE INJ 4 MG IVP PRN ×5 (05:44→22:20)
[2017-06-05] MEDS: HumuLIN R SUBCUT PRN ×3 (05:45→20:05)
[2017-06-05] MEDS: REGLAN INJ 10 MG VIAL IVP SCH ×4 (05:45→20:03)
[2017-06-05] MEDS: LASIX PO SCH (08:58)
[2017-06-05] MEDS: PEPCID 20 MG IV PREMIX* 20 MG/50 ML BAG IV SCH (08:58)
[2017-06-05] MEDS: EFFEXOR XR 75 MG CAP PO SCH (08:58)
[2017-06-05] MEDS: ZyrTEC TAB 10 MG PO SCH (08:58)
[2017-06-05] MEDS: ZITHROMAX INJ 500 MG VIAL 250 MG in NS 250 ML IV 250 ML IV SCH (08:58)
[2017-06-05] MEDS: ASPIRIN PO SCH (08:59)
[2017-06-05] MEDS: PLAVIX PO SCH (08:59)
[2017-06-05] MEDS: MILK OF MAGNESIA PO SCH ×2 (08:59→20:03)
[2017-06-05] MEDS: COZAAR PO SCH (09:04)
[2017-06-05] MEDS: TOPAMAX PO SCH (09:04)
[2017-06-05] MEDS: NS 1/2 1000 ML IV 1,000 ML IV SCH (14:08)
[2017-06-05] MEDS: SNACK - Diabetic Appropriate PO SCH (19:50)
[2017-06-05] MEDS: LIPITOR TAB 20 MG PO SCH (20:03)
[2017-06-05] MEDS: COLACE CAP 100 MG PO SCH (20:03)
[2017-06-06] MEDS ORDERED: NS 1/2 1000 ML IV 1,000 ML IV ONE (00:09)
[2017-06-06] MEDS: NS 1/2 1000 ML IV 1,000 ML IV SCH (00:48)
[2017-06-06] MEDS: MORPHINE SULFATE INJ 4 MG IVP PRN ×2 (02:19→06:25)
[2017-06-06] MEDS: REGLAN INJ 10 MG VIAL IVP SCH ×2 (05:48→11:20)
[2017-06-06] MEDS: HumuLIN R SUBCUT PRN (06:25)
[2017-06-06 06:33] LABS: CALCIUM 7.9 mg/dL (8.5-10.1); CARBON DIOXIDE 21.9 mmol/L (21-32); CREATININE 1.76 mg/dL (0.55-1.02)
[2017-06-06 08:10] VITALS: BP 155/94
[2017-06-06] MEDS: EFFEXOR XR 75 MG CAP PO SCH (08:22)
[2017-06-06] MEDS: LASIX PO SCH (08:22)
[2017-06-06] MEDS: ASPIRIN PO SCH (08:22)
[2017-06-06] MEDS: COZAAR PO SCH (08:22)
[2017-06-06] MEDS: PLAVIX PO SCH (08:23)
[2017-06-06] MEDS: TOPAMAX PO SCH (08:23)
[2017-06-06] MEDS: MILK OF MAGNESIA PO SCH (08:23)
[2017-06-06] MEDS: PEPCID 20 MG IV PREMIX* 20 MG/50 ML BAG IV SCH (08:23)
[2017-06-06] MEDS: ZyrTEC TAB 10 MG PO SCH (08:24)
[2017-06-06] MEDS: ZITHROMAX INJ 500 MG VIAL 250 MG in NS 250 ML IV 250 ML IV SCH (08:24)
[2017-06-06] MEDS: NORCO 10/325 TAB PO PRN (10:02)
== END 2017-06-06 11:39 | disposition home or self-care (01) | DRG 638 ==
LOC: UNDOADMOB 15:07 → MED/SURG 15:07 → OBS 16:58 → OBSVTOIN 05-29 08:30 → ICU 05-30 17:25
PROVIDERS: ADMIT Internal Medicine; ATTEND Internal Medicine
PROC: 0D9670Z Drainage of Stomach with Drainage Device, Via Natural or Artificial Opening (ICD-10-PCS; principal; 2017-05-31)
DX: E10.10 Type 1 diabetes mellitus with ketoacidosis without coma (principal); E87.1 Hypo-osmolality and hyponatremia; K56.7 Ileus, unspecified; R11.2 Nausea with vomiting, unspecified; E86.0 Dehydration; R53.1 Weakness; I12.9 Hypertensive chronic kidney disease with stage 1 through stage 4 chronic kidney disease, or unspecified chronic kidney disease; I25.10 Atherosclerotic heart disease of native coronary artery without angina pectoris; K21.9 Gastro-esophageal reflux disease without esophagitis; R51 Headache; N18.3 Chronic kidney disease, stage 3 (moderate); Z89.511 Acquired absence of right leg below knee; Z89.432 Acquired absence of left foot; K59.09 Other constipation; E87.5 Hyperkalemia
CPT/HCPCS: 36415; 71010; 72131; 74000; 74022; 74176; 76770; 80048; 80053; 81001; 81002; 82009; 82150; 82271; 82947; 83690; 83735; 84132; 85025; 87040; 87086; A4222; S0028; G0378; J0360; J0456; J1815; J2270; J2405; J2550; J2765; J3480

== ENCOUNTER 2017-06-21 16:39 | Emergency (ER) | payer OTHER, MEDICAID ==
[2017-06-21 17:36] LABS: BASOPHILS # (AUTO) 0.1 X10^3/uL (0.0-0.1); BASOPHILS % (AUTO) 1.7 % (0.2-1.0); EOSINOPHILS # (AUTO) 0.1 x10^3/uL (0.0-0.2); HEMATOCRIT 30.3 % (36.0-47.0); HEMOGLOBIN 10.4 g/dL (12.0-16.0); LYMPHOCYTES # (AUTO) 1.1 X10^3/uL (1.3-2.9); LYMPHOCYTES % (AUTO) 23.3 % (21.0-51.0); MEAN CORPUSCULAR HEMOGLOBIN 31.5 pg (27.0-34.0); MEAN CORPUSCULAR HGB CONC 34.2 g/dL (33.0-35.0); MEAN CORPUSCULAR VOLUME 92.2 fL (80.0-100.0); MEAN PLATELET VOLUME 9.3 fL (7.4-11.0); MONOCYTES # (AUTO) 0.2 x10^3/uL (0.3-0.8); MONOCYTES % (AUTO) 4.3 % (0.0-13.0); NEUTROPHILS # (AUTO) 3.3 x10^3/uL (2.2-4.8); NEUTROPHILS % (AUTO) 68.7 % (42.0-75.0); PLATELET COUNT 186 X10^3/uL (150.0-450.0); RED BLOOD COUNT 3.29 X10^6/uL (3.5-5.4); RED CELL DISTRIBUTION WIDTH 14.3 % (11.6-16.5); WHITE BLOOD COUNT 4.8 X10^3/uL (3.6-10.0)
[2017-06-21 17:37] VITALS: BMI 26.3
[2017-06-21 17:43] LABS: SERUM ACETONE NEGATIVE (NEGATIVE)
[2017-06-21 17:44] LABS: ALANINE AMINOTRANSFERASE 47 Units/L (12-78); ALBUMIN 3.1 g/dL (3.4-5.0); ALKALINE PHOSPHATASE 83 Units/L (46-116); AMYLASE 19 Units/L (25-115); ASPARTATE AMINO TRANSFERASE 16 Units/L (15-37); BLOOD UREA NITROGEN 19 mg/dL (7-18); CALCIUM 8.1 mg/dL (8.5-10.1); CARBON DIOXIDE 24.5 mmol/L (21-32); CHLORIDE 103 mmol/L (98-107); COR CA(FOR HYPOALB) 8.8 mg/dL (8.5-10.1); COR NA(FOR HYPERGLY) 142 mmol/L (136-145); CREATININE 1.68 mg/dL (0.55-1.02); LIPASE 67 Units/L (73-393); SODIUM 136 mmol/L (136-145); TOTAL PROTEIN 7.1 g/dL (6.4-8.2); eGFR BLACK RACES 44 (>60); eGFR NON BLACK RACES 36 (>60)
--- NOTE | 2017-06-21 18:22 | DR.GENAD ---
HPI - PCP Primary Care Physician: DAVID - Complaint/Symptoms Chief Complaint Doctors Comments: Patient presents with complaint of vomiting for the past 3 days; not being able to keep anything down. She denies fever. Chief Complaint:: PT C/O N/V FOR THE PAST 3 DAYS. PT STATES SHE HAS NOT BEEN ABLE TO KEEP ABYTHING DOWN. PT'S HOME HEALTH NURSE STATES PT HAD VOMITTED X5 TIMES SHE SHE HAD BEEN THERE - Source History Provided: EMS - Mode of Arrival Mode of Arrival: EMS - Timing Onset of Chief Complaint: 06/18/17 PMH - PMH Past Medical History: Yes Past Medical History: Coronary Artery Disease, Depression, Diabetes, Migraines, GERD, Headaches, Hypertension, Renal Disease Past Surgical History: Yes Surgical History: , CABG/Valve Surgery, Cholecystectomy, Ortho Surgery - Family History History of Family Medical Conditions: Yes Family Medical History: Diabetes Mellitus, Cancer, [place], Sudden Cardiac , Hypertension - Social History Does any household member use tobacco: No Alcohol Use: None Do you use any recreational Drugs:: No Lives With: Family Lives Where: Home - infectious screening In the last 2 months have you had wt loss of >10#?: NO Have you had fever, night sweats or hemotysis?: No Have you traveled outside the country in the last 6 months?: No Isolation: Standard ROS - Review of Systems Eyes: No Symptoms Reported ENTM: No Symptoms Reported Respiratoy: No Symptoms Reported Cardiovascular: No Symptoms Reported Gastrointestinal/Abdominal: No Symptoms Reported Genitourinary: No Symptoms Reported Neurological: No Symptoms Reported Musculoskeletal: No Symptoms Reported Integumentary: No Symptoms Reported Hematologic/Lymphatic: No Symptoms Reported Endocrine: No Symptoms Reported Psychiatric: No Symptoms Reported All Other Systems: Reviewed and Negative PE - Vital Signs Vitals: Temperature 97.7 F Pulse Rate 115 Respiratory Rate 18 Blood Pressure [Left Arm] 146/84 Blood Pressure [Right Arm] 155/94 Blood Pressure 125/71 O2 Sat by Pulse Oximetry 98 - General Limitations: Physical Limitation (BKA right leg) General Appearance: Alert, In No Apparent Distress - Head Head Exam: Normal Inspection - Eyes Eye exam: Normal Appearance, PERRL, EOMI - ENT ENT Exam: Normal Exam External Ear Exam: Normal External Inspection TM/Canal Exam: Bilateral Normal Nose Exam: Normal Nose Exam, Sinus Tenderness Mouth Exam: Normal Inspection Throat Exam: Normal Inspection - Neck Neck Exam: Normal Inspection, Full ROM - Chest Chest Inspection: Normal Inspection - Respiratory Respiratory Exam: Normal Lung Sounds Bilat Respiratory Exam: Bilateral Clear to Auscultation - Cardiovascular Cardiovascular Exam: Regular Rate, Normal Rhythm - Abdominal Exam Abdominal Exam: Normal Inspection Abdominal Tenderness: negative: RUQ, RLQ, LUQ, LLQ, Epigastrium, Suprapubic, Diffuse, Mild, Moderate, Severe, Other - Extremities Extremities Exam: Normal Inspection, Full ROM - Back Back Exam: Normal Inspection - Neurologic Neurological Exam: Alert, Oriented X3, CN II-XII Intact - Psychiatric Psychiatric Exam: Normal Affect, Normal Mood - Skin Skin Exam: Warm, Dry, Intact ROR - Labs Reviewed Result Diagrams: 06/21/17 17:23 06/21/17 17:23 Laboratory: WBC 4.8 X10^3/uL (3.6-10.0) 06/21/17 17:23 RBC 3.29 X10^6/uL (3.5-5.4) L 06/21/17 17:23 Hgb 10.4 g/dL (12.0-16.0) L 06/21/17 17:23 Hct 30.3 % (36.0-47.0) L 06/21/17 17:23 MCV 92.2 fL (80.0-100.0) 06/21/17 17:23 MCH 31.5 pg (27.0-34.0) 06/21/17 17:23 MCHC 34.2 g/dL (33.0-35.0) 06/21/17 17:23 RDW 14.3 % (11.6-16.5) 06/21/17 17:23 Plt Count 186 X10^3/uL (150.0-450.0) 06/21/17 17:23 MPV 9.3 fL (7.4-11.0) 06/21/17 17:23 Neut % 68.7 % (42.0-75.0) 06/21/17 17:23 Lymph % 23.3 % (21.0-51.0) 06/21/17 17:23 [place] % 4.3 % (0.0-13.0) 06/21/17 17:23 Eos % 2.0 % (0.9-2.9) 06/21/17 17:23 Baso % 1.7 % (0.2-1.0) H 06/21/17 17:23 Neut # 3.3 x10^3/uL (2.2-4.8) 06/21/17 17:23 Lymph # 1.1 X10^3/uL (1.3-2.9) L 06/21/17 17:23 [place] # 0.2 x10^3/uL (0.3-0.8) L 06/21/17 17:23 Eos # 0.1 x10^3/uL (0.0-0.2) 06/21/17 17:23 Baso # 0.1 X10^3/uL (0.0-0.1) 06/21/17 17:23 Absolute Nucleated RBC 0.1 /100WBC 06/21/17 17:23 Sodium 136 mmol/L (136-145) 06/21/17 17:23 Corrected Sodium 142 mmol/L (136-145) 06/21/17 17:23 Potassium 4.9 mmol/L (3.5-5.1) 06/21/17 17:23 Chloride 103 mmol/L (98-107) 06/21/17 17:23 Carbon Dioxide 24.5 mmol/L (21-32) 06/21/17 17:23 BUN 19 mg/dL (7-18) H 06/21/17 17:23 Creatinine 1.68 mg/dL (0.55-1.02) H 06/21/17 17:23 Est GFR (MDRD) Af Amer 44 (>60) L 06/21/17 17:23 Est GFR (MDRD) Non-Af 36 (>60) L 06/21/17 17:23 Glucose 357 mg/dL (65-99) H 06/21/17 17:23 POC Glucose (mg/dL) 272 mg/dL (65-99) H 06/21/17 20:22 Calcium 8.1 mg/dL (8.5-10.1) L 06/21/17 17:23 Corrected Calcium 8.8 mg/dL (8.5-10.1) 06/21/17 17:23 Total Bilirubin 0.50 mg/dL (0.2-1.0) 06/21/17 17:23 AST 16 Units/L (15-37) 06/21/17 17:23 ALT 47 Units/L (12-78) 06/21/17 17:23 Alkaline Phosphatase 83 Units/L (46-116) 06/21/17 17:23 C-Reactive Protein 13.90 mg/L (0-3.0) H 06/21/17 17:23 Total Protein 7.1 g/dL (6.4-8.2) 06/21/17 17:23 Albumin 3.1 g/dL (3.4-5.0) L 06/21/17 17:23 Globulin 4.0 g/dL (2.5-4.5) 06/21/17 17:23 Albumin/Globulin Ratio 0.8 Ratio (1.1-2.1) L 06/21/17 17:23 Amylase 19 Units/L (25-115) L 06/21/17 17:23 Lipase 67 Units/L (73-393) L 06/21/17 17:23 Acetone, Semi-Quant Negative (NEGATIVE) 06/21/17 17:23 Influenza Type A (PCR) Negative (NEGATIVE) 06/21/17 19:21 Influenza Type B (PCR) Negative (NEGATIVE) 06/21/17 19:21 - Diagnosis Discharge Problem: Gastroenteritis, Elevated blood sugar - Discharge Plan Condition: Stable - Follow ups/Referrals Follow ups/Referrals: NISH HERNANDEZ [Primary Care Provider] - 3 days - Instructions
[2017-06-21] MEDS ORDERED: NS 1000 ML 1,000 ML IV ONE (18:23)
[2017-06-21] MEDS ORDERED: HumuLIN R SUBCUT PRN (19:21)
--- NOTE | 2017-06-21 19:33 | RAD ---
Acute abdominal series, three views Indication: Nausea and vomiting Comparison: 06/04/2017 Findings: The heart size is normal with prior CABG changes noted. No focal consolidation, effusion or pneumothorax is identified. The visualized bowel gas pattern is nonobstructive. No free air or pneum atosis is identified. No pathologic calcifications are seen. Visualized osseous structures are intact . Impression: No acute chest or abdominal abnormality. Reported By:
[2017-06-21] MEDS ORDERED: SNACK - Diabetic Appropriate PO SCH (20:00)
[2017-06-21] MEDS ORDERED: ZOFRAN INJ 4 MG VIAL IVP ONE (21:09)
[2017-06-21] MEDS ORDERED: ZOFRAN INJ 4 MG VIAL ONE (21:24)
[2017-06-21 21:47] VITALS: BP 177/87
== END 2017-06-22 01:10 | disposition home or self-care (01) ==
LOC: ER 16:39
DX: K52.9 Noninfective gastroenteritis and colitis, unspecified (principal)
CPT/HCPCS: 36415; 74022; 80053; 82009; 82150; 83690; 85025; 86140; 87502; 99283; J2405

== ENCOUNTER 2017-08-13 11:59 | Inpatient (IN) | payer OTHER, MEDICAID ==
[2017-08-13] MEDS ORDERED: REGLAN INJ 10 MG VIAL IVP PRN (13:40)
--- NOTE | 2017-08-13 13:46 | DR.H&P ---
H&P - History & Physical for Day of: H&P Date: 08/13/17 - Chief Complaint Chief Complaint: N/V, WEAKNESS, ELEVATED BLOOD SUGAR - Allergies Allergies/Adverse Reactions: Allergies Allergy/AdvReac Type Severity Reaction Status Date / Time No Known Drug Allergies Allergy Verified 07/01/17 17:49 - History of Present Illness History of Present Illness: 37 WF DIRECT ADMIT FROM DR STONE WITH CO INTRACTABLE N/V, ELEVATED BLOOD SUGAR, UPPER ABDOMINAL PAIN. PT STATES SHE CANNOT HOLD PO MEDICATION DOWN, FEELS WEAK. PT HAS TRIED TO TAKE PHENERGAN PO AND KEEPS SOME DOWN. PT HAS UNCONTROLLED DIABETES, CAD, HTN, GERD, OA. PLAN TO ADMIT TO [facility] FOR TREATMENT AND EVALUATION OF INTRACTABLE ABDOMINAL PAIN, ADMISSION LABS, BS CONTROL - Past Medical History Past Medical History: Coronary Artery Disease, Depression, Diabetes, Migraines, GERD, Headaches, Hypertension, Renal Disease - Past Surgical History Surgical History: , CABG/Valve Surgery, Cholecystectomy, Ortho Surgery - Family History Family Medical History: Diabetes Mellitus, Cancer, [place], Sudden Cardiac , Hypertension - Social History Does patient currently use any type of tobacco product: No Have you used tobacco products in the last 12 months: No Type of Tobacco Use: None Does any household member use tobacco: No Alcohol Use: None Drug Use: None - Review of Systems Constitutional: Chills, Weakness Eyes: No Symptoms Reported ENT: No Symptoms Reported Respiratory: No Symptoms Reported Cardiovascular: No Symptoms Reported Gastrointestinal: Nausea, Vomiting, Abdominal Pain Genitourinary: No Symptoms Reported Musculoskeletal: Back Pain Skin: No Symptoms Reported Neurological: No Symptoms Reported - Physical Exam Vital Signs: Blood Pressure [Left Arm] 146/84 Blood Pressure [Right Arm] 160/81 Blood Pressure 160/81 Oriented: Normal Eyes: Blurred Vision (CHRONIC) Ear: Normal Nose: Normal Throat: Normal Respiratory: RLL Diminished, LLL Diminished Cardiovascular: Normal : Normal Auscultation: Bowel Sounds: Normal Palpation: Normal Tenderness: LUQ, Epigastric Skin: Decreased Turgur Musculoskeletal: Deformity Psychiatric: Depression Speech Pattern: Clear, Appropriate - Assessment/Plan (1) Intractable nausea and vomiting Status: Acute Plan: ADMIT, ADMISSION LABS. CBC CMP AMYLASE, LIPASE. KUB, NPO, SSI BS CONTROL. BP MONITORING, PPI THERAPY (2) Hyperglycemia Status: Acute (3) Hyperkalemia Status: Acute (4) CAD (coronary artery disease) Status: Chronic (5) Chronic kidney disease (CKD) Qualifiers: Chronic kidney disease stage: stage 3 (moderate) Qualified Code(s): N18.3 - Chronic kidney disease, stage 3 (moderate) Status: Chronic (6) Diabetes mellitus type 1 Qualifiers: Diabetes mellitus complication status: with hyperglycemia Qualified Code(s) : E10.65 - Type 1 diabetes mellitus with hyperglycemia Status: Chronic (7) Hypertension Status: Chronic
[2017-08-13 14:08] VITALS: BMI 34.9
[2017-08-13 14:22] LABS: BASOPHILS # (AUTO) 0.1 X10^3/uL (0.0-0.1); BASOPHILS % (AUTO) 1.4 % (0.2-1.0); EOSINOPHILS # (AUTO) 0.1 x10^3/uL (0.0-0.2); HEMATOCRIT 33.2 % (36.0-47.0); HEMOGLOBIN 11.3 g/dL (12.0-16.0); LYMPHOCYTES # (AUTO) 1.7 X10^3/uL (1.3-2.9); LYMPHOCYTES % (AUTO) 22.6 % (21.0-51.0); MEAN CORPUSCULAR HEMOGLOBIN 31.4 pg (27.0-34.0); MEAN CORPUSCULAR HGB CONC 34.1 g/dL (33.0-35.0); MEAN CORPUSCULAR VOLUME 92.2 fL (80.0-100.0); MEAN PLATELET VOLUME 9.4 fL (7.4-11.0); MONOCYTES # (AUTO) 0.4 x10^3/uL (0.3-0.8); MONOCYTES % (AUTO) 4.9 % (0.0-13.0); NEUTROPHILS # (AUTO) 5.3 x10^3/uL (2.2-4.8); NEUTROPHILS % (AUTO) 69.1 % (42.0-75.0); PLATELET COUNT 212 X10^3/uL (150.0-450.0); RED BLOOD COUNT 3.61 X10^6/uL (3.5-5.4); RED CELL DISTRIBUTION WIDTH 14.3 % (11.6-16.5); WHITE BLOOD COUNT 7.6 X10^3/uL (3.6-10.0)
[2017-08-13] MEDS: MORPHINE SULFATE INJ 2 MG INJ IVP PRN ×2 (14:30→19:27)
[2017-08-13] MEDS: NS 1000 ML 1,000 ML IV SCH (14:30)
[2017-08-13 14:31] LABS: SERUM ACETONE SMALL (NEGATIVE)
[2017-08-13 14:32] LABS: BLOOD UREA NITROGEN 46 mg/dL (7-18); CALCIUM 8.6 mg/dL (8.5-10.1); CARBON DIOXIDE 21.8 mmol/L (21-32); CHLORIDE 103 mmol/L (98-107); COR NA(FOR HYPERGLY) 142 mmol/L (136-145); CREATININE 1.99 mg/dL (0.55-1.02); SODIUM 135 mmol/L (136-145); eGFR BLACK RACES 36 (>60); eGFR NON BLACK RACES 30 (>60)
[2017-08-13 14:37] LABS: ALANINE AMINOTRANSFERASE 20 Units/L (12-78); ALBUMIN 3.2 g/dL (3.4-5.0); ALKALINE PHOSPHATASE 82 Units/L (46-116); AMYLASE 31 Units/L (25-115); ASPARTATE AMINO TRANSFERASE 13 Units/L (15-37); COR CA(FOR HYPOALB) 9.2 mg/dL (8.5-10.1); LIPASE 71 Units/L (73-393); TOTAL PROTEIN 7.3 g/dL (6.4-8.2)
[2017-08-13] MEDS: HumuLIN R SUBCUT PRN ×2 (14:59→17:46)
--- NOTE | 2017-08-13 16:13 | RAD ---
Examination: Supine KUB History: Abdominal pain Comparison 06/21/2017 Findings: There are scattered segments of moderate gaseous distention involving small bowel and colon . No mass formation, pathologic calcification or ascites is demonstrated. There are surgical clips in the right upper abdomen. Impression: Intestinal distention most consistent with a nonobstructing process. Follow-up recommende d if developing mechanical obstruction is a clinical concern. Reported By:
[2017-08-13] MEDS: PHENERGAN INJ 25 MG IVP PRN (19:28)
[2017-08-14] MEDS: SNACK - Diabetic Appropriate PO SCH ×2 (00:18→19:29)
[2017-08-14] MEDS: MORPHINE SULFATE INJ 2 MG INJ IVP PRN ×5 (00:34→23:10)
[2017-08-14] MEDS: PHENERGAN INJ 25 MG IVP PRN ×2 (02:46→23:10)
[2017-08-14] MEDS: NS 1000 ML 1,000 ML IV SCH ×2 (02:46→15:06)
[2017-08-14 05:52] LABS: BASOPHILS # (AUTO) 0.1 X10^3/uL (0.0-0.1); BASOPHILS % (AUTO) 1.9 % (0.2-1.0); EOSINOPHILS # (AUTO) 0.2 x10^3/uL (0.0-0.2); EOSINOPHILS % (AUTO) 3.9 % (0.9-2.9); HEMATOCRIT 30.2 % (36.0-47.0); HEMOGLOBIN 10.4 g/dL (12.0-16.0); LYMPHOCYTES # (AUTO) 2.1 X10^3/uL (1.3-2.9); LYMPHOCYTES % (AUTO) 34.6 % (21.0-51.0); MEAN CORPUSCULAR HEMOGLOBIN 31.7 pg (27.0-34.0); MEAN CORPUSCULAR HGB CONC 34.6 g/dL (33.0-35.0); MEAN CORPUSCULAR VOLUME 91.6 fL (80.0-100.0); MEAN PLATELET VOLUME 8.8 fL (7.4-11.0); MONOCYTES # (AUTO) 0.3 x10^3/uL (0.3-0.8); MONOCYTES % (AUTO) 5.4 % (0.0-13.0); NEUTROPHILS # (AUTO) 3.3 x10^3/uL (2.2-4.8); NEUTROPHILS % (AUTO) 54.2 % (42.0-75.0); PLATELET COUNT 215 X10^3/uL (150.0-450.0); RED BLOOD COUNT 3.29 X10^6/uL (3.5-5.4); RED CELL DISTRIBUTION WIDTH 14.8 % (11.6-16.5)
[2017-08-14 06:13] LABS: ALBUMIN 2.6 g/dL (3.4-5.0); CALCIUM 7.9 mg/dL (8.5-10.1); CARBON DIOXIDE 22.4 mmol/L (21-32); CREATININE 1.72 mg/dL (0.55-1.02); TOTAL PROTEIN 6.5 g/dL (6.4-8.2)
[2017-08-14] MEDS: HumuLIN R SUBCUT PRN ×2 (06:21→18:19)
[2017-08-14] MEDS: PROTONIX INJ 40 MG VIAL IVP SCH (08:07)
[2017-08-14 12:09] LABS: BILIRUBIN,URINE NEGATIVE (NEGATIVE); BLOOD/HEMOGLOBIN,URINE 2+ (NEGATIVE); GLUCOSE, URINE 1+ (NEGATIVE); KETONES,URINE NEGATIVE (NEGATIVE); LEUKOCYTE ESTERASE ,URINE 3+ (NEGATIVE); NITRITES,URINE NEGATIVE (NEGATIVE); PROTEIN,URINE 3+ (NEGATIVE); UROBILINOGEN,URINE NORMAL (NORMAL)
[2017-08-14 12:22] LABS: APPEARANCE,URINE CLOUDY (CLEAR); BACTERIA,URINE 2+ /HPF (NEGATIVE); COLOR,URINE YELLOW (YELLOW); RBC,URINE 0-5 /HPF (NEGATIVE); SQUAMOUS EPITHELIAL CELL,UR FEW /HPF (NEGATIVE)
[2017-08-14 13:24] LABS: BILIRUBIN,URINE NEGATIVE (NEGATIVE); BLOOD/HEMOGLOBIN,URINE 2+ (NEGATIVE); GLUCOSE, URINE NEGATIVE (NEGATIVE); KETONES,URINE NEGATIVE (NEGATIVE); LEUKOCYTE ESTERASE ,URINE 3+ (NEGATIVE); NITRITES,URINE POSITIVE (NEGATIVE); PROTEIN,URINE 3+ (NEGATIVE); UROBILINOGEN,URINE NORMAL (NORMAL)
[2017-08-14 13:31] LABS: AMORPHOUS SEDIMENT,UR 1+ /HPF (NEGATIVE); APPEARANCE,URINE HAZY (CLEAR); BACTERIA,URINE 2+ /HPF (NEGATIVE); COLOR,URINE YELLOW (YELLOW); SQUAMOUS EPITHELIAL CELL,UR RARE /HPF (NEGATIVE)
[2017-08-15] MEDS: NS 1000 ML 1,000 ML IV SCH ×4 (03:05→18:46)
[2017-08-15] MEDS: MORPHINE SULFATE INJ 2 MG INJ IVP PRN ×5 (05:36→21:29)
[2017-08-15 06:10] LABS: BASOPHILS # (AUTO) 0.1 X10^3/uL (0.0-0.1); BASOPHILS % (AUTO) 1.9 % (0.2-1.0); EOSINOPHILS # (AUTO) 0.2 x10^3/uL (0.0-0.2); EOSINOPHILS % (AUTO) 3.9 % (0.9-2.9); HEMATOCRIT 28.8 % (36.0-47.0); LYMPHOCYTES # (AUTO) 1.8 X10^3/uL (1.3-2.9); LYMPHOCYTES % (AUTO) 35.5 % (21.0-51.0); MEAN CORPUSCULAR HEMOGLOBIN 31.9 pg (27.0-34.0); MEAN CORPUSCULAR HGB CONC 34.6 g/dL (33.0-35.0); MEAN PLATELET VOLUME 8.9 fL (7.4-11.0); MONOCYTES # (AUTO) 0.3 x10^3/uL (0.3-0.8); MONOCYTES % (AUTO) 6.9 % (0.0-13.0); NEUTROPHILS # (AUTO) 2.6 x10^3/uL (2.2-4.8); NEUTROPHILS % (AUTO) 51.8 % (42.0-75.0); PLATELET COUNT 199 X10^3/uL (150.0-450.0); RED BLOOD COUNT 3.13 X10^6/uL (3.5-5.4); RED CELL DISTRIBUTION WIDTH 14.7 % (11.6-16.5); WHITE BLOOD COUNT 5.1 X10^3/uL (3.6-10.0)
[2017-08-15 06:29] LABS: ALBUMIN 2.6 g/dL (3.4-5.0); CALCIUM 7.9 mg/dL (8.5-10.1); CARBON DIOXIDE 20.6 mmol/L (21-32); CREATININE 1.59 mg/dL (0.55-1.02); TOTAL PROTEIN 6.2 g/dL (6.4-8.2)
[2017-08-15] MEDS: PHENERGAN INJ 25 MG IVP PRN (07:45)
[2017-08-15] MEDS: PROTONIX INJ 40 MG VIAL IVP SCH (08:00)
[2017-08-15] MEDS ORDERED: HumuLIN R ONE (11:14)
[2017-08-15] MEDS: HumuLIN R SUBCUT PRN ×3 (11:23→21:25)
[2017-08-15] MEDS: SNACK - Diabetic Appropriate PO SCH (20:00)
[2017-08-16] MEDS: MORPHINE SULFATE INJ 2 MG INJ IVP PRN ×2 (02:58→07:26)
[2017-08-16] MEDS: PHENERGAN INJ 25 MG IVP PRN (05:06)
[2017-08-16] MEDS: NS 1000 ML 1,000 ML IV SCH (05:07)
[2017-08-16] MEDS: HumuLIN R SUBCUT PRN (06:10)
[2017-08-16 06:12] LABS: BASOPHILS # (AUTO) 0.1 X10^3/uL (0.0-0.1); BASOPHILS % (AUTO) 1.4 % (0.2-1.0); EOSINOPHILS # (AUTO) 0.1 x10^3/uL (0.0-0.2); EOSINOPHILS % (AUTO) 3.2 % (0.9-2.9); HEMATOCRIT 31.1 % (36.0-47.0); HEMOGLOBIN 10.5 g/dL (12.0-16.0); LYMPHOCYTES # (AUTO) 1.4 X10^3/uL (1.3-2.9); LYMPHOCYTES % (AUTO) 35.9 % (21.0-51.0); MEAN CORPUSCULAR HEMOGLOBIN 31.3 pg (27.0-34.0); MEAN CORPUSCULAR HGB CONC 33.7 g/dL (33.0-35.0); MEAN CORPUSCULAR VOLUME 92.8 fL (80.0-100.0); MONOCYTES # (AUTO) 0.2 x10^3/uL (0.3-0.8); MONOCYTES % (AUTO) 6.2 % (0.0-13.0); NEUTROPHILS # (AUTO) 2.2 x10^3/uL (2.2-4.8); NEUTROPHILS % (AUTO) 53.3 % (42.0-75.0); PLATELET COUNT 184 X10^3/uL (150.0-450.0); RED BLOOD COUNT 3.35 X10^6/uL (3.5-5.4); RED CELL DISTRIBUTION WIDTH 14.6 % (11.6-16.5)
[2017-08-16 06:32] LABS: ALBUMIN 2.8 g/dL (3.4-5.0); CALCIUM 8.2 mg/dL (8.5-10.1); CARBON DIOXIDE 19.4 mmol/L (21-32); COR CA(FOR HYPOALB) 9.2 mg/dL (8.5-10.1); CREATININE 1.5 mg/dL (0.55-1.02); TOTAL PROTEIN 6.7 g/dL (6.4-8.2)
[2017-08-16] MEDS ORDERED: PLAVIX ONE (07:38)
[2017-08-16] MEDS ORDERED: ROCEPHIN 1 GM IV PREMIX 1 GM/50 ML IV.SOLN. IV ONE (08:20)
[2017-08-16] MEDS ORDERED: ROCEPHIN 1 GM IV PREMIX IV ONE (08:24)
[2017-08-16] MEDS: PROTONIX INJ 40 MG VIAL IVP SCH (08:27)
[2017-08-16] MEDS ORDERED: ROCEPHIN VIAL 1 GM 1 GM in NS 100 ML IV + SPIKE MINIBAG* 100 ML IV SCH (08:30)
[2017-08-16] MEDS ORDERED: PLAVIX PO SCH (09:00)
[2017-08-16 10:28] VITALS: BP 125/74
== END 2017-08-16 11:31 | disposition home health service (06) | DRG 392 ==
LOC: OBSVTOIN 11:59 → ICU 11:59
PROVIDERS: ADMIT Internal Medicine; ATTEND Internal Medicine
DX: R11.2 Nausea with vomiting, unspecified (principal); R10.84 Generalized abdominal pain; R53.1 Weakness; E10.65 Type 1 diabetes mellitus with hyperglycemia; I25.10 Atherosclerotic heart disease of native coronary artery without angina pectoris; F32.89 Other specified depressive episodes; R52 Pain, unspecified; K21.9 Gastro-esophageal reflux disease without esophagitis; N18.3 Chronic kidney disease, stage 3 (moderate); E87.5 Hyperkalemia; I10 Essential (primary) hypertension; B96.29 Other Escherichia coli [E. coli] as the cause of diseases classified elsewhere
CPT/HCPCS: 36415; 74018; 80053; 81001; 81002; 82009; 82150; 83690; 85025; 87086; 87088; 87186; A4222; C9113; J0696; J1815; J2270; J2550; J2765

== ENCOUNTER 2017-10-02 10:30 | Inpatient (IN) | payer OTHER, MEDICAID ==
--- NOTE | 2017-10-02 11:02 | DR.EXTPAIN ---
HPI - Time seen Time seen: 10:45 - PCP Primary Care Physician: DAVID NICOLE - HPI Comment HPI Comment: PATIENT IS WEAK AND DRAIN OF ENERGY. NO FEVER OR DYSURIA. NO N/V OR DYSURIA. NO CHEST PAIN. - Complaint/Symptoms Chief Complaint Doctor Comments: LOW BLOOD PRESSURE AND LEFT SHOULDER PAIN DUE TO A FALL FEW DAYS AGO. Chief Complaint:: EMS OUT TO LOW B/P AND LEFT SHOULDER PAIN , AND PT'S BS WAS 388, AND PT STATES SHE FELL A FEW DAYS AGO.. BR - Nurses notes reviewed Nurses Notes Review: Yes - Source History Provided: Patient - Mode of arrival Mode of Arrival: EMS - Timing Onset of Chief Complaint: 09/30/17 - Context History of: None - Associated signs and symptoms Associated Signs and Symptoms: Pain, Swelling PMH - PMH Past Medical History: Yes Past Medical History: Coronary Artery Disease, Depression, Diabetes, Migraines, GERD, Headaches, Hypertension, Renal Disease Past Surgical History: Yes Surgical History: , CABG/Valve Surgery, Cholecystectomy, Ortho Surgery - Family History History of Family Medical Conditions: Yes Family Medical History: Diabetes Mellitus, Cancer, [place], Sudden Cardiac , Hypertension - Social History Does patient currently use any type of tobacco product: No Have you used tobacco products in the last 12 months: No Type of Tobacco Use: None Does any household member use tobacco: No Alcohol Use: None Do you use any recreational Drugs:: No Lives With: Family Lives Where: Home - infectious screening In the last 2 months have you had wt loss of >10#?: NO Have you had fever, night sweats or hemotysis?: No Have you traveled outside the country in the last 6 months?: No Isolation: Standard ROS - Review of Systems Constitutional: Weakness, Fatigue. negative: Chills, Fever Eyes: No Symptoms Reported. negative: Eye Pain, Blurred Vision, Discharge, Photophobia ENTM: No Symptoms Reported. negative: Ear Pain, Nose Discharge, Nose Congestion , Throat Pain Respiratoy: Productive Cough, Non-Productive Cough, Short of Breath, Wheezing. negative: Hemoptysis Cardiovascular: No Symptoms Reported. negative: Chest Pain, Edema Gastrointestinal/Abdominal: Nausea Genitourinary: No Symptoms Reported. negative: Dysuria, Frequency, Hematuria Neurological: Weakness, Dizziness. negative: Headache Musculoskeletal: Muscle Pain Integumentary: negative: Juandice Hematologic/Lymphatic: Easy Bleeding, Easy Bruising Endocrine: No Symptoms Reported All Other Systems: Reviewed and Negative PE - Vital Signs Vitals: Temperature 97.7 F Pulse Rate [Left Brachial] 63 Pulse Rate 63 Respiratory Rate 17 Blood Pressure [Left Arm] 90/54 Blood Pressure [Right Arm] 160/81 Blood Pressure 90/66 O2 Sat by Pulse Oximetry 97 - General Limitations: No Limitations General Appearance: Alert - Head Head Exam: Atraumatic - Eyes Eye exam: Normal Appearance, PERRL, EOMI. negative: Scleral Icterus, Conjunctival Injection - ENT ENT Exam: Normal Oropharynx, Normal External Ear Exam, TM's Normal Bilaterally - Neck Neck Exam: Trachea Midline. negative: Tenderness, Meningismus, Lymphadenopathy - Chest Chest Inspection: Symmetric Chest Wall Rise - Respiratory Respiratory Exam: Normal Lung Sounds Bilat Respiratory Exam: Bilateral Clear to Auscultation - Cardiovascular Cardiovascular Exam: Regular Rate, Normal Rhythm, Normal Heart Sounds - Abdominal Exam Abdominal Exam: Normal Bowel Sounds, Soft. negative: Tenderness - Extremities Extremities Exam: Tenderness (LT SHOULDER PAIN) - Lower Extremities Neurovascular/Tendon Exam: Normal Capillary Refill - Back Back Exam: Normal Inspection - Neurological Neurological Exam: Alert, Oriented X3 - Psychiatric Psychiatric Exam: Normal Affect, Normal Mood - Skin Skin Exam: Erythema MDM - Differential Diagnosis Differential Diagnosis: Fracture, Sprain (DEHYDRATION, [place], ELECTROLYTE IMBALANCE ) Course - Treatment Treatment: SEE ORDERS. - Consultation Consultation Comments: PATIENT DISCUSS WITH DR. HERNANDEZ. HE WILL ADMIT PATIENT. - Education/Counseling Education/Counseling: Patient Educated On: Diagnosis ROR - Labs Reviewed Laboratory Results Reviewed?: Yes Result Diagrams: 10/06/17 05:15 10/06/17 05:15 Laboratory: WBC 4.4 X10^3/uL (3.6-10.0) 10/06/17 05:15 RBC 2.32 X10^6/uL (3.5-5.4) L 10/06/17 05:15 Hgb 7.5 g/dL (12.0-16.0) L 10/06/17 05:15 Hct 22.4 % (36.0-47.0) L 10/06/17 05:15 MCV 96.4 fL (80.0-100.0) 10/06/17 05:15 MCH 32.2 pg (27.0-34.0) 10/06/17 05:15 MCHC 33.4 g/dL (33.0-35.0) 10/06/17 05:15 RDW 15.0 % (11.6-16.5) 10/06/17 05:15 Plt Count 121 X10^3/uL (150.0-450.0) L 10/06/17 05:15 Plt Count Comment Decreased (ADEQUATE) A 10/06/17 05:15 MPV 10.5 fL (7.4-11.0) 10/06/17 05:15 Neut % (Auto) 70.5 % (42.0-75.0) 10/06/17 05:15 Lymph % (Auto) 19.6 % (21.0-51.0) L 10/06/17 05:15 [place] % (Auto) 5.7 % (0.0-13.0) 10/06/17 05:15 Eos % (Auto) 3.1 % (0.9-2.9) H 10/06/17 05:15 Baso % (Auto) 1.1 % (0.2-1.0) H 10/06/17 05:15 Neut # (Auto) 3.1 x10^3/uL (2.2-4.8) 10/06/17 05:15 Lymph # (Auto) 0.9 X10^3/uL (1.3-2.9) L 10/06/17 05:15 [place] # (Auto) 0.2 x10^3/uL (0.3-0.8) L 10/06/17 05:15 Eos # (Auto) 0.1 x10^3/uL (0.0-0.2) 10/06/17 05:15 Baso # (Auto) 0.0 X10^3/uL (0.0-0.1) 10/06/17 05:15 Absolute Nucleated RBC 0.1 /100WBC 10/06/17 05:15 Plt Morphology Comment Normal (NORMAL) 10/06/17 05:15 RBC Morphology Normal (NORMAL) 10/06/17 05:15 Hypochromasia Slight A 10/02/17 15:47 INR Target Range - 10/02/17 11:10 INR 1.12 (0.8-1.3) 10/02/17 11:10 APTT 27.5 SECONDS (22.9-36.5) 10/02/17 11:10 PTT Comment - 10/02/17 11:10 Sample Site Lba 10/03/17 09:30 ABG pH 7.250 (7.35-7.45) L 10/03/17 09:30 ABG pCO2 33.0 mmHg (35.0-45.0) L 10/03/17 09:30 ABG pO2 85.0 mmHg (80.0-100.0) 10/03/17 09:30 ABG HCO3 14.5 mmol/L (22-26) L* 10/03/17 09:30 ABG O2 Saturation 95.0 % (90-100) 10/03/17 09:30 ABG Base Excess -11.7 mmol/L (-2.0-2.0) L 10/03/17 09:30 Nathan Test Na 10/03/17 09:30 A-a Gradient 73.0 mmHg 10/03/17 09:30 FiO2 28.000 10/03/17 09:30 Blood Gas Comments Jona well cs 10/03/17 09:30 Sodium 145 mmol/L (136-145) 10/06/17 05:15 Corrected Sodium 148 mmol/L (136-145) H 10/06/17 05:15 Potassium 3.9 mmol/L (3.5-5.1) 10/06/17 05:15 Chloride 113 mmol/L (98-107) H 10/06/17 05:15 Carbon Dioxide 18.2 mmol/L (21-32) L 10/06/17 05:15 BUN 76 mg/dL (7-18) H 10/06/17 05:15 Creatinine 2.45 mg/dL (0.55-1.02) H 10/06/17 05:15 Est GFR (MDRD) Af Amer 28 (>60) L 10/06/17 05:15 Est GFR (MDRD) Non-Af 23 (>60) L 10/06/17 05:15 Glucose 228 mg/dL (65-99) H 10/06/17 05:15 POC Glucose (mg/dL) 266 mg/dL (65-99) H 10/06/17 19:51 Lactic Acid 1.3 mmol/L (0.4-2.0) 10/02/17 17:00 Calcium 6.3 mg/dL (8.5-10.1) L 10/06/17 05:15 Corrected Calcium 7.4 mg/dL (8.5-10.1) L 10/06/17 05:15 Magnesium 2.1 mg/dL (1.7-2.9) 10/03/17 05:10 Total Bilirubin 0.30 mg/dL (0.2-1.0) 10/06/17 05:15 AST 15 Units/L (15-37) 10/06/17 05:15 ALT 49 Units/L (12-78) 10/06/17 05:15 Alkaline Phosphatase 103 Units/L (46-116) 10/06/17 05:15 Creatine Kinase 4154 Units/L (26-192) H 10/03/17 05:10 CK-MB (CK-2) 15.7 ng/mL (0-4.0) H* 10/03/17 05:10 CK/CKMB % Calc 0.4 % (<4) 10/03/17 05:10 Troponin I < 0.02 ng/mL (0-1.5) 10/03/17 05:10 Total Protein 6.6 g/dL (6.4-8.2) 10/06/17 05:15 Albumin 2.6 g/dL (3.4-5.0) L 10/06/17 05:15 Globulin 4.0 g/dL (2.5-4.5) 10/06/17 05:15 Albumin/Globulin Ratio 0.7 Ratio (1.1-2.1) L 10/06/17 05:15 Specimen Type Catherized urine 10/02/17 15:30 Urine Color Yellow (YELLOW) 10/02/17 15:30 Urine Appearance Cloudy (CLEAR) 10/02/17 15:30 Urine pH 5.0 (5.0 - 8.0) 10/02/17 15:30 Ur Specific [place] 1.020 (1.000-1.030) 10/02/17 15:30 Urine Protein 2+ (NEGATIVE) 10/02/17 15:30 Urine Glucose (UA) 2+ (NEGATIVE) 10/02/17 15:30 Urine Ketones Negative (NEGATIVE) 10/02/17 15:30 Urine Occult Blood 3+ (NEGATIVE) 10/02/17 15:30 Urine Nitrite Negative (NEGATIVE) 10/02/17 15:30 Urine Bilirubin 1+ (NEGATIVE) 10/02/17 15:30 Urine Urobilinogen Normal (NORMAL) 10/02/17 15:30 Ur Leukocyte Esterase 3+ (NEGATIVE) 10/02/17 15:30 Urine RBC 10-20 /HPF (NONE SEEN) 10/02/17 15:30 Urine WBC Tntc /HPF (NONE SEEN) 10/02/17 15:30 Ur Squamous Epith Cells Rare /HPF (NEGATIVE) 10/02/17 15:30 Amorphous Sediment 1+ /HPF (NEGATIVE) 10/02/17 15:30 Urine Bacteria 2+ /HPF (NEGATIVE) 10/02/17 15:30 Hyaline Casts Rare /LPF (NEGATIVE) 10/02/17 15:30 Ur Culture Indicated? Yes/culture set up 10/02/17 15:30 Acetone, Semi-Quant Negative (NEGATIVE) 10/02/17 14:48 Blood Type A POSITIVE 10/03/17 08:30 Antibody Screen Negative 10/03/17 08:30 - XRAY XRAY Interpreted by: Radiologist XRAY Findings: REPORT DISCUSS WITH PATIENT. - EKG Rhythm: NSR (EKG NOTED) - Diagnosis Discharge Problem: Hyperkalemia Acute renal failure Qualifiers: Acute renal failure type: unspecified Qualified Code(s): N17.9 - Acute kidney failure, unspecified Hypotension Qualifiers: Hypotension type: unspecified hypotension type Qualified Code(s): I95.9 - Hypotension, unspecified - Discharge Plan Disposition: ADMITTED INPATIENT Condition: Stable - Follow ups/Referrals - Instructions
--- NOTE | 2017-10-02 11:18 | RAD ---
Examination: X-rays of the left shoulder. Clinical history: Left shoulder pain, fell a few days ago. Technique: Three views of the left shoulder were obtained. Comparison: None available. Findings: The Y-view is limited, with the superior portions of the scapula and proximal humerus omitted from th e image. A repeat Y-view could be obtained at no additional charge to the patient. No acute fracture, dislocation, or destructive bony lesion is noted. No soft tissue abnormality is noted. Surgical clips are seen overlying the left hemithorax. Impression: 1. No acute fracture or dislocation. The Y-view is limited, with the superior portions of the scapula and proximal humerus omitted from the image. A repeat Y-view could be obtained at no additional spencer ge to the patient. Reported By:
[2017-10-02 11:27] LABS: BASOPHILS # (AUTO) 0.1 X10^3/uL (0.0-0.1); EOSINOPHILS # (AUTO) 0.1 x10^3/uL (0.0-0.2); HEMOGLOBIN 7.8 g/dL (12.0-16.0); LYMPHOCYTES # (AUTO) 1.2 X10^3/uL (1.3-2.9); LYMPHOCYTES % (AUTO) 18.8 % (21.0-51.0); MEAN CORPUSCULAR HGB CONC 33.6 g/dL (33.0-35.0); NEUTROPHILS # (AUTO) 4.7 x10^3/uL (2.2-4.8); PLATELET COUNT 100 X10^3/uL (150.0-450.0); RED BLOOD COUNT 2.39 X10^6/uL (3.5-5.4); WHITE BLOOD COUNT 6.5 X10^3/uL (3.6-10.0)
[2017-10-02 11:29] LABS: CALCIUM 6.8 mg/dL (8.5-10.1); CARBON DIOXIDE 16.4 mmol/L (21-32); CREATININE 6.74 mg/dL (0.55-1.02)
[2017-10-02 11:32] LABS: BASOPHILS % (AUTO) 0.9 % (0.2-1.0); EOSINOPHILS % (AUTO) 1.8 % (0.9-2.9); MEAN CORPUSCULAR HEMOGLOBIN 32.4 pg (27.0-34.0); MEAN CORPUSCULAR VOLUME 96.4 fL (80.0-100.0); MEAN PLATELET VOLUME 11.5 fL (7.4-11.0); MONOCYTES # (AUTO) 0.4 x10^3/uL (0.3-0.8); NEUTROPHILS % (AUTO) 72.5 % (42.0-75.0)
[2017-10-02] MEDS ORDERED: KAYEXALATE PO ONE (11:36)
[2017-10-02] MEDS ORDERED: NS 1000 ML 1,000 ML IV ONE (11:36)
[2017-10-02] MEDS ORDERED: D50W ABBOJECT SYR IV ONE (11:36)
[2017-10-02] MEDS ORDERED: HumuLIN R IV ONE (11:38)
[2017-10-02] MEDS ORDERED: NS 1000 ML 1,000 ML ONE (11:40)
[2017-10-02] MEDS ORDERED: HumuLIN R ONE (11:41)
[2017-10-02] MEDS ORDERED: D50W ABBOJECT SYR ONE (11:41)
[2017-10-02 12:03] LABS: HYPOCHROMASIA 1+; PLATELET MORPHOLOGY COMMENT NORMAL (NORMAL)
[2017-10-02 12:05] LABS: ALBUMIN 3.1 g/dL (3.4-5.0); COR CA(FOR HYPOALB) 7.5 mg/dL (8.5-10.1); TOTAL PROTEIN 7.1 g/dL (6.4-8.2)
--- NOTE | 2017-10-02 13:27 | DR.H&P ---
H&P - History & Physical for Day of: H&P Date: 10/02/17 - Chief Complaint Chief Complaint: fall, left shoulder pain, high blood sugar, low bp, weak - Allergies Allergies/Adverse Reactions: Allergies Allergy/AdvReac Type Severity Reaction Status Date / Time No Known Drug Allergies Allergy Verified 10/02/17 10:39 - History of Present Illness History of Present Illness: 37 ER ADMISSION WITH CO FALL AND NEW ONSET LEFT SHOULDER PAIN. WEAKNESS, LOW BP PER EMS, ELEVATED BP. PT HAS PMH OF DM, HTN, BLINDNESS, GERD, OA, CHF, CAD, AMPUTATION. PT XRAY SHOULDER DONE IN ED, ADMISSION LABS HYPERKALMIC AND DEHYDRATION WITH ELEVATED GLUCOSE. PT ADMITTED FOR EVALUATION AND TREATMENT. - Past Medical History Past Medical History: Coronary Artery Disease, Depression, Diabetes, Migraines, GERD, Headaches, Hypertension, Renal Disease - Past Surgical History Surgical History: , CABG/Valve Surgery, Cholecystectomy, Ortho Surgery - Family History Family Medical History: Diabetes Mellitus, Cancer, [place], Sudden Cardiac , Hypertension - Social History Does patient currently use any type of tobacco product: No Have you used tobacco products in the last 12 months: No Type of Tobacco Use: None Does any household member use tobacco: No Alcohol Use: None - Medications Home Medications: Citalopram 20 mg Tab [CELEXA 20 MG *] 1 tab PO HS 10/02/17 [History Confirmed ] Sucralfate [Carafate] 1 tab PO ACHS 10/02/17 [History Confirmed 10/02/17] - Review of Systems Constitutional: Weakness, Malaise Eyes: Vision Change Respiratory: No Symptoms Reported Cardiovascular: No Symptoms Reported Gastrointestinal: Nausea, Vomiting Genitourinary: Frequency Musculoskeletal: Shoulder Pain, Back Pain, Leg Pain Skin: No Symptoms Reported Neurological: Weakness - Physical Exam Vital Signs: Temperature 97.7 F Pulse Rate [Left Brachial] 61 Pulse Rate 63 Respiratory Rate 16 Blood Pressure [Left Arm] 78/40 Blood Pressure [Right Arm] 160/81 Blood Pressure 90/66 O2 Sat by Pulse Oximetry 100 Oriented: Normal Eyes: Other (BLINDNESS) Ear: Normal Nose: Normal Throat: Dry Respiratory: RLL Diminished, LLL Diminished Cardiovascular: Tachycardia : Normal Auscultation: Bowel Sounds: Decreased Tenderness: RUQ, LUQ, Epigastric Skin: Decreased Turgur Musculoskeletal: Left, Shoulder, Back:Lumbar, Deformity (R BKA), Motor Deficit, Sensory Deficit Psychiatric: Anxiety Mood Description: Depressed Speech Pattern: Clear, Appropriate - Assessment/Plan (1) Metabolic acidosis Status: Acute Plan: ADMIT, IV HYDRATION, PAIN AND NAUSEA CONTROL. I & OS, SKIN CARE/ ASSESSMENT, PT. RESUME BP MEDICATION, SUPPLEMENTAL O2, ABG ON ADMISSION. BS CONTROL, SSI, CONTINUOUS CARDIAC MONITORING. REPEAT AM LABS (2) Hyperglycemia Status: Acute (3) Hyperkalemia Status: Acute (4) CAD (coronary artery disease) Status: Chronic (5) Chronic kidney disease (CKD) Qualifiers: Chronic kidney disease stage: stage 3 (moderate) Qualified Code(s): N18.3 - Chronic kidney disease, stage 3 (moderate) Status: Chronic (6) Diabetes mellitus Status: Chronic (7) History of right below knee amputation Status: Chronic (8) Peripheral artery disease Status: Chronic
[2017-10-02] MEDS: NS 1000 ML 1,000 ML IV SCH ×3 (14:02→22:35)
[2017-10-02 14:23] LABS: ABG BASE EXCESS -15.1 mmol/L (-2.0-2.0)
[2017-10-02 14:24] LABS: ABG HCO3 12.4 mmol/L (22-26)
[2017-10-02 15:40] LABS: BILIRUBIN,URINE 1+ (NEGATIVE); BLOOD/HEMOGLOBIN,URINE 3+ (NEGATIVE); GLUCOSE, URINE 2+ (NEGATIVE); KETONES,URINE NEGATIVE (NEGATIVE); LEUKOCYTE ESTERASE ,URINE 3+ (NEGATIVE); NITRITES,URINE NEGATIVE (NEGATIVE); PROTEIN,URINE 2+ (NEGATIVE); UROBILINOGEN,URINE NORMAL (NORMAL)
[2017-10-02 15:47] LABS: APPEARANCE,URINE CLOUDY (CLEAR); COLOR,URINE YELLOW (YELLOW)
[2017-10-02 15:48] LABS: AMORPHOUS SEDIMENT,UR 1+ /HPF (NEGATIVE); BACTERIA,URINE 2+ /HPF (NEGATIVE); HYALINE CASTS, URINE RARE /LPF (NEGATIVE); SQUAMOUS EPITHELIAL CELL,UR RARE /HPF (NEGATIVE)
[2017-10-02 15:57] LABS: SERUM ACETONE NEGATIVE (NEGATIVE)
[2017-10-02 15:57] LABS: BASOPHILS # (AUTO) 0.1 X10^3/uL (0.0-0.1); BASOPHILS % (AUTO) 1.4 % (0.2-1.0); EOSINOPHILS # (AUTO) 0.1 x10^3/uL (0.0-0.2); EOSINOPHILS % (AUTO) 2.1 % (0.9-2.9); HEMATOCRIT 23.2 % (36.0-47.0); HEMOGLOBIN 7.8 g/dL (12.0-16.0); LYMPHOCYTES # (AUTO) 1.3 X10^3/uL (1.3-2.9); LYMPHOCYTES % (AUTO) 20.5 % (21.0-51.0); MEAN CORPUSCULAR HEMOGLOBIN 32.5 pg (27.0-34.0); MEAN CORPUSCULAR HGB CONC 33.5 g/dL (33.0-35.0); MEAN PLATELET VOLUME 11.7 fL (7.4-11.0); MONOCYTES # (AUTO) 0.3 x10^3/uL (0.3-0.8); MONOCYTES % (AUTO) 5.4 % (0.0-13.0); NEUTROPHILS # (AUTO) 4.5 x10^3/uL (2.2-4.8); NEUTROPHILS % (AUTO) 70.6 % (42.0-75.0); PLATELET COUNT 82 X10^3/uL (150.0-450.0); RED BLOOD COUNT 2.39 X10^6/uL (3.5-5.4); RED CELL DISTRIBUTION WIDTH 15.3 % (11.6-16.5); WHITE BLOOD COUNT 6.4 X10^3/uL (3.6-10.0)
[2017-10-02 15:58] LABS: ALANINE AMINOTRANSFERASE 130 Units/L (12-78); ALBUMIN 2.9 g/dL (3.4-5.0); ALKALINE PHOSPHATASE 131 Units/L (46-116); ASPARTATE AMINO TRANSFERASE 174 Units/L (15-37); BLOOD UREA NITROGEN 127 mg/dL (7-18); CALCIUM 6.4 mg/dL (8.5-10.1); CHLORIDE 104 mmol/L (98-107); COR CA(FOR HYPOALB) 7.3 mg/dL (8.5-10.1); COR NA(FOR HYPERGLY) 140 mmol/L (136-145); CREATININE 6.25 mg/dL (0.55-1.02); MAGNESIUM 2.3 mg/dL (1.7-2.9); SODIUM 133 mmol/L (136-145); TOTAL PROTEIN 6.6 g/dL (6.4-8.2); eGFR BLACK RACES 10 (>60); eGFR NON BLACK RACES 8 (>60)
[2017-10-02 16:14] LABS: HYPOCHROMASIA SLIGHT; PLATELET MORPHOLOGY COMMENT NORMAL (NORMAL)
[2017-10-02] MEDS ORDERED: MAXIPIME 1 GM IV PREMIX 1 GM/50 ML BAG IV ONE (16:52)
[2017-10-02] MEDS: SODIUM BICARBONATE TAB 650MG PO SCH (16:57)
[2017-10-02] MEDS: KAYEXALATE PO SCH ×2 (16:58→22:35)
[2017-10-02] MEDS ORDERED: MAXIPIME VIAL 1 GM IV SCH (17:00)
[2017-10-02] MEDS ORDERED: MAXIPIME 1 GM IV SCH (17:00)
[2017-10-02] MEDS ORDERED: MAXIPIME IV SCH (17:00)
[2017-10-02] MEDS: HumuLIN R SUBCUT PRN ×2 (17:05→20:45)
[2017-10-02] MEDS ORDERED: SNACK - Diabetic Appropriate PO SCH (20:00)
[2017-10-02] MEDS ORDERED: TYLENOL 325 MG TAB PO PRN (20:03)
[2017-10-02] MEDS: SNACK - Diabetic Appropriate PO SCH (20:44)
[2017-10-03] MEDS: NS 1000 ML 1,000 ML IV SCH ×4 (02:11→14:11)
[2017-10-03] MEDS: KAYEXALATE PO SCH ×2 (04:39→10:14)
[2017-10-03 05:58] LABS: BASOPHILS # (AUTO) 0.1 X10^3/uL (0.0-0.1); BASOPHILS % (AUTO) 1.4 % (0.2-1.0); EOSINOPHILS # (AUTO) 0.1 x10^3/uL (0.0-0.2); EOSINOPHILS % (AUTO) 2.2 % (0.9-2.9); HEMATOCRIT 20.5 % (36.0-47.0); LYMPHOCYTES # (AUTO) 1.1 X10^3/uL (1.3-2.9); LYMPHOCYTES % (AUTO) 23.6 % (21.0-51.0); MEAN CORPUSCULAR HEMOGLOBIN 32.1 pg (27.0-34.0); MEAN CORPUSCULAR HGB CONC 33.4 g/dL (33.0-35.0); MEAN CORPUSCULAR VOLUME 96.2 fL (80.0-100.0); MEAN PLATELET VOLUME 11.7 fL (7.4-11.0); MONOCYTES # (AUTO) 0.4 x10^3/uL (0.3-0.8); MONOCYTES % (AUTO) 7.4 % (0.0-13.0); NEUTROPHILS # (AUTO) 3.1 x10^3/uL (2.2-4.8); NEUTROPHILS % (AUTO) 65.4 % (42.0-75.0); PLATELET COUNT 89 X10^3/uL (150.0-450.0); RED BLOOD COUNT 2.13 X10^6/uL (3.5-5.4); RED CELL DISTRIBUTION WIDTH 14.6 % (11.6-16.5); WHITE BLOOD COUNT 4.8 X10^3/uL (3.6-10.0)
[2017-10-03 06:00] LABS: HEMOGLOBIN 6.9 g/dL (12.0-16.0)
[2017-10-03] MEDS: HumuLIN R SUBCUT PRN ×4 (06:12→20:14)
[2017-10-03] MEDS: SODIUM BICARBONATE TAB 650MG PO SCH ×3 (06:12→16:43)
[2017-10-03 06:36] LABS: ALANINE AMINOTRANSFERASE 94 Units/L (12-78); ALBUMIN 2.7 g/dL (3.4-5.0); ALKALINE PHOSPHATASE 114 Units/L (46-116); ASPARTATE AMINO TRANSFERASE 72 Units/L (15-37); BLOOD UREA NITROGEN 122 mg/dL (7-18); CALCIUM 6.1 mg/dL (8.5-10.1); CHLORIDE 110 mmol/L (98-107); COR CA(FOR HYPOALB) 7.1 mg/dL (8.5-10.1); COR NA(FOR HYPERGLY) 142 mmol/L (136-145); CREATININE 5.58 mg/dL (0.55-1.02); MAGNESIUM 2.1 mg/dL (1.7-2.9); SODIUM 140 mmol/L (136-145); TOTAL PROTEIN 6.2 g/dL (6.4-8.2); TROPONIN I < 0.02 ng/mL (0-1.5); eGFR BLACK RACES 11 (>60); eGFR NON BLACK RACES 9 (>60)
[2017-10-03 06:39] LABS: CARBON DIOXIDE 14.8 mmol/L (21-32)
[2017-10-03 06:40] LABS: CKMB % 0.4 % (<4); CREATINE KINASE 4154 Units/L (26-192); CREATINE KINASE MB 15.7 ng/mL (0-4.0)
--- NOTE | 2017-10-03 09:00 | RAD ---
Examination: Chest x-ray. Clinical history: Shortness of breath, CHF. Technique: A single portable AP view of the chest was obtained. Comparison: 07/01/2017. Findings: There are multiple sternal wires and surgical clips in the mediastinum indicating a prior CABG. Monit or leads are seen overlying the chest. The cardiac silhouette appears enlarged. The cardiac silhouette size may be accentuated by the AP pro jection. No pneumothorax or pleural effusion is noted. The lungs appear clear. No acute osseous abnormality is noted. Impression: 1. The cardiac silhouette appears enlarged. The cardiac silhouette size may be accentuated by the AP projection. Reported By:
[2017-10-03 09:35] LABS: ABG BASE EXCESS -11.7 mmol/L (-2.0-2.0)
[2017-10-03 09:36] LABS: ABG HCO3 14.5 mmol/L (22-26)
[2017-10-03] MEDS ORDERED: NS IV SCH (10:00)
[2017-10-03] MEDS ORDERED: MAXIPIME IV SCH ×2 (10:00→17:00)
[2017-10-03] MEDS ORDERED: NYSTATIN POWDER ONE (10:02)
[2017-10-03] MEDS: NYSTATIN POWDER TOP SCH ×2 (10:14→20:13)
[2017-10-03] MEDS: NS IV SCH (10:14)
[2017-10-03] MEDS: MAXIPIME IV SCH (10:14)
--- NOTE | 2017-10-03 13:38 | PCM.PROG ---
Progress Note - Progress Note for Day of Date: 10/03/17 - Subjective Subjective: 37 WF ADMITTED ON 10/02 WITH HYPERKALEMIA, ACUTE ON CHRONIC RENAL FAILURE, FALL WITH INTRACTABLE LEFT SHOULDER PAIN. PT HAS IMPROVING RENAL FUNCTION AND POTASSIUM THIS AM POST KAEXALATE PO. PT HGB 6.9, DECREASED IV FLUIDS, CXR THIS AM, TYPE AND SCREEN AND PLAN TO REPEAT CBC AT NOON. PT HAS CO INTRACTABLE LEFT SHOULDER PAIN CONTINUED. MRI LEFT SHOULDER, CONTINUE PAIN CONTROL - Past Medical Family Social History Past Med/Fam/Surg Hx: No changes since H&P Allergies: Allergies No Known Drug Allergies Allergy (Verified 10/02/17 10:39) - Review of Systems ROS: No change since H&P - Vital Signs and I&O's Vital Signs: Temperature 99.7 F Pulse Rate [Left Brachial] 71 Pulse Rate 63 Respiratory Rate 14 Blood Pressure [Left Arm] 100/52 Blood Pressure [Right Arm] 160/81 Blood Pressure 90/66 O2 Sat by Pulse Oximetry 100 Intake and Output: Intake & Output 10/01/17 10/02/17 10/03/17 10/04/17 11:59 11:59 11:59 11:59 Intake Total 4745 Output Total 670 Balance 4075 - Physical Exam Oriented: Normal Eyes: Other (BLINDNESS) Ear: Normal Nose: Normal Throat: Dry Respiratory: Diminished Cardiovascular: Tachycardia : Normal Auscultation: Bowel Sounds: Decreased Tenderness: RUQ, LUQ, Epigastric Skin: Decreased Turgur Musculoskeletal: Left, Shoulder, Back:Lumbar, Deformity (R BKA), Motor Deficit, Sensory Deficit Psychiatric: Anxiety, Depression Mood Description: Depressed Speech Pattern: Clear, Appropriate - Laboratory and Diagnostics Result Diagrams: 10/03/17 05:10 10/03/17 05:10 Labs: 10/02/17 15:30 Urine,Clean Catch Urine Culture - Preliminary Laboratory WBC 4.8 X10^3/uL (3.6-10.0) 10/03/17 05:10 RBC 2.13 X10^6/uL (3.5-5.4) L 10/03/17 05:10 Hgb 6.9 g/dL (12.0-16.0) L* 10/03/17 05:10 Hct 20.5 % (36.0-47.0) L 10/03/17 05:10 MCV 96.2 fL (80.0-100.0) 10/03/17 05:10 MCH 32.1 pg (27.0-34.0) 10/03/17 05:10 MCHC 33.4 g/dL (33.0-35.0) 10/03/17 05:10 RDW 14.6 % (11.6-16.5) 10/03/17 05:10 Plt Count 89 X10^3/uL (150.0-450.0) L 10/03/17 05:10 Plt Count Comment Decreased (ADEQUATE) A 10/02/17 15:47 MPV 11.7 fL (7.4-11.0) H 10/03/17 05:10 Neut % (Auto) 65.4 % (42.0-75.0) 10/03/17 05:10 Lymph % (Auto) 23.6 % (21.0-51.0) 10/03/17 05:10 [place] % (Auto) 7.4 % (0.0-13.0) 10/03/17 05:10 Eos % (Auto) 2.2 % (0.9-2.9) 10/03/17 05:10 Baso % (Auto) 1.4 % (0.2-1.0) H 10/03/17 05:10 Neut # (Auto) 3.1 x10^3/uL (2.2-4.8) 10/03/17 05:10 Lymph # (Auto) 1.1 X10^3/uL (1.3-2.9) L 10/03/17 05:10 [place] # (Auto) 0.4 x10^3/uL (0.3-0.8) 10/03/17 05:10 Eos # (Auto) 0.1 x10^3/uL (0.0-0.2) 10/03/17 05:10 Baso # (Auto) 0.1 X10^3/uL (0.0-0.1) 10/03/17 05:10 Absolute Nucleated RBC 0.1 /100WBC 10/03/17 05:10 Plt Morphology Comment Normal (NORMAL) 10/02/17 15:47 RBC Morphology Abnormal (NORMAL) A 10/02/17 15:47 Hypochromasia Slight A 10/02/17 15:47 INR Target Range - 10/02/17 11:10 INR 1.12 (0.8-1.3) 10/02/17 11:10 APTT 27.5 SECONDS (22.9-36.5) 10/02/17 11:10 PTT Comment - 10/02/17 11:10 Sample Site Lba 10/03/17 09:30 ABG pH 7.250 (7.35-7.45) L 10/03/17 09:30 ABG pCO2 33.0 mmHg (35.0-45.0) L 10/03/17 09:30 ABG pO2 85.0 mmHg (80.0-100.0) 10/03/17 09:30 ABG HCO3 14.5 mmol/L (22-26) L* 10/03/17 09:30 ABG O2 Saturation 95.0 % (90-100) 10/03/17 09:30 ABG Base Excess -11.7 mmol/L (-2.0-2.0) L 10/03/17 09:30 Nathan Test Na 10/03/17 09:30 A-a Gradient 73.0 mmHg 10/03/17 09:30 FiO2 28.000 10/03/17 09:30 Blood Gas Comments Jona well cs 10/03/17 09:30 Sodium 140 mmol/L (136-145) 10/03/17 05:10 Corrected Sodium 142 mmol/L (136-145) 10/03/17 05:10 Potassium 4.4 mmol/L (3.5-5.1) 10/03/17 05:10 Chloride 110 mmol/L (98-107) H 10/03/17 05:10 Carbon Dioxide 14.8 mmol/L (21-32) L* 10/03/17 05:10 BUN 122 mg/dL (7-18) H 10/03/17 05:10 Creatinine 5.58 mg/dL (0.55-1.02) H 10/03/17 05:10 Est GFR (MDRD) Af Amer 11 (>60) L 10/03/17 05:10 Est GFR (MDRD) Non-Af 9 (>60) L 10/03/17 05:10 Glucose 201 mg/dL (65-99) H 10/03/17 05:10 POC Glucose (mg/dL) 243 mg/dL (65-99) H 10/03/17 11:25 Lactic Acid 1.3 mmol/L (0.4-2.0) 10/02/17 17:00 Calcium 6.1 mg/dL (8.5-10.1) L 10/03/17 05:10 Corrected Calcium 7.1 mg/dL (8.5-10.1) L 10/03/17 05:10 Magnesium 2.1 mg/dL (1.7-2.9) 10/03/17 05:10 Total Bilirubin 0.20 mg/dL (0.2-1.0) 10/03/17 05:10 AST 72 Units/L (15-37) H 10/03/17 05:10 ALT 94 Units/L (12-78) H 10/03/17 05:10 Alkaline Phosphatase 114 Units/L (46-116) 10/03/17 05:10 Creatine Kinase 4154 Units/L (26-192) H 10/03/17 05:10 CK-MB (CK-2) 15.7 ng/mL (0-4.0) H* 10/03/17 05:10 CK/CKMB % Calc 0.4 % (<4) 10/03/17 05:10 Troponin I < 0.02 ng/mL (0-1.5) 10/03/17 05:10 Total Protein 6.2 g/dL (6.4-8.2) L 10/03/17 05:10 Albumin 2.7 g/dL (3.4-5.0) L 10/03/17 05:10 Globulin 3.5 g/dL (2.5-4.5) 10/03/17 05:10 Albumin/Globulin Ratio 0.8 Ratio (1.1-2.1) L 10/03/17 05:10 Specimen Type Catherized urine 10/02/17 15:30 Urine Color Yellow (YELLOW) 10/02/17 15:30 Urine Appearance Cloudy (CLEAR) 10/02/17 15:30 Urine pH 5.0 (5.0 - 8.0) 10/02/17 15:30 Ur Specific [place] 1.020 (1.000-1.030) 10/02/17 15:30 Urine Protein 2+ (NEGATIVE) 10/02/17 15:30 Urine Glucose (UA) 2+ (NEGATIVE) 10/02/17 15:30 Urine Ketones Negative (NEGATIVE) 10/02/17 15:30 Urine Occult Blood 3+ (NEGATIVE) 10/02/17 15:30 Urine Nitrite Negative (NEGATIVE) 10/02/17 15:30 Urine Bilirubin 1+ (NEGATIVE) 10/02/17 15:30 Urine Urobilinogen Normal (NORMAL) 10/02/17 15:30 Ur Leukocyte Esterase 3+ (NEGATIVE) 10/02/17 15:30 Urine RBC 10-20 /HPF (NONE SEEN) 10/02/17 15:30 Urine WBC Tntc /HPF (NONE SEEN) 10/02/17 15:30 Ur Squamous Epith Cells Rare /HPF (NEGATIVE) 10/02/17 15:30 Amorphous Sediment 1+ /HPF (NEGATIVE) 10/02/17 15:30 Urine Bacteria 2+ /HPF (NEGATIVE) 10/02/17 15:30 Hyaline Casts Rare /LPF (NEGATIVE) 10/02/17 15:30 Ur Culture Indicated? Yes/culture set up 10/02/17 15:30 Acetone, Semi-Quant Negative (NEGATIVE) 10/02/17 14:48 Blood Type A POSITIVE 10/03/17 08:30 Antibody Screen Negative 10/03/17 08:30 - Plan (1) Metabolic acidosis Status: Acute Plan: IV HYDRATION, PAIN AND NAUSEA CONTROL. I & OS, SKIN CARE/ASSESSMENT, PT. RESUME BP MEDICATION, SUPPLEMENTAL O2, ABG ON ADMISSION. BS CONTROL, SSI, CONTINUOUS CARDIAC MONITORING. REPEAT AM LABS (2) Hyperglycemia Status: Acute (3) Hyperkalemia Status: Acute (4) CAD (coronary artery disease) Status: Chronic (5) Chronic kidney disease (CKD) Status: Chronic Qualifiers: Chronic kidney disease stage: stage 3 (moderate) Qualified Code(s): N18.3 - Chronic kidney disease, stage 3 (moderate) (6) Diabetes mellitus Status: Chronic (7) History of right below knee amputation Status: Chronic (8) Peripheral artery disease Status: Chronic (9) Left shoulder pain Status: Acute Plan: S/P FALL, PAIN CONTROL. MRI LEFT SHOUDLER
[2017-10-03 13:51] LABS: BASOPHILS # (AUTO) 0.1 X10^3/uL (0.0-0.1); BASOPHILS % (AUTO) 1.3 % (0.2-1.0); EOSINOPHILS # (AUTO) 0.1 x10^3/uL (0.0-0.2); EOSINOPHILS % (AUTO) 1.9 % (0.9-2.9); HEMATOCRIT 21.9 % (36.0-47.0); HEMOGLOBIN 7.4 g/dL (12.0-16.0); LYMPHOCYTES % (AUTO) 20.5 % (21.0-51.0); MEAN CORPUSCULAR HEMOGLOBIN 32.5 pg (27.0-34.0); MEAN CORPUSCULAR HGB CONC 33.9 g/dL (33.0-35.0); MEAN CORPUSCULAR VOLUME 95.8 fL (80.0-100.0); MEAN PLATELET VOLUME 11.1 fL (7.4-11.0); MONOCYTES # (AUTO) 0.3 x10^3/uL (0.3-0.8); MONOCYTES % (AUTO) 7.3 % (0.0-13.0); NEUTROPHILS # (AUTO) 3.3 x10^3/uL (2.2-4.8); PLATELET COUNT 100 X10^3/uL (150.0-450.0); RED BLOOD COUNT 2.28 X10^6/uL (3.5-5.4); WHITE BLOOD COUNT 4.7 X10^3/uL (3.6-10.0)
--- NOTE | 2017-10-03 15:45 | MRI ---
Indication: Fall and left shoulder pain Exam: MRI left shoulder without contrast. Technique: Routine multiplanar multisequence imaging was performed through the left shoulder without contrast. Findings: There is mild narrowing of the glenohumeral joint. There is moderate thickening and increas ed signal throughout the infraspinatus tendon and less prominent thickening along the supraspinatus t endon. There is no fluid signal or retraction in the tendons . There is minimal fluid in the adjacent subdeltoid bursa . There are mild hypertrophic changes of the AC joint. There is a small joint effus ion. The visualized labrum appears intact and normal signal intensity. The biceps tendon is intact an d in good position. No fracture or dislocation is seen. The bone marrow signal is normal throughout. There are small subchondral cystic or erosive changes along the greater tuberosity. There is minimal edema and fluid along the musculotendinous junction of the infra spinatus tendon with no defect or re traction seen. Impression: Questionable mild partial tear or strain along the musculotendinous junction of the infraspinatus ten don and tendinopathy distally. No tendon tear is seen distally. Mild supraspinatus tendinopathy . Mild subdeltoid bursitis. Tiny subchondral cystic or erosive changes along the greater tuberosity. Small joint effusion with no acute bony abnormality . Mild hypertrophic changes of the AC joint and mild downsloping of the acromion causing mild narrowing of the acromiohumeral space. Reported By:
[2017-10-03] MEDS: CARAFATE PO SCH ×2 (16:42→20:13)
[2017-10-03] MEDS: NORCO 10/325 TAB PO PRN (16:46)
[2017-10-03] MEDS: SNACK - Diabetic Appropriate PO SCH (20:12)
[2017-10-03] MEDS: CELEXA PO SCH (20:13)
[2017-10-03] MEDS: LOPRESSOR TAB 25 MG PO SCH (20:13)
[2017-10-04] MEDS: NS 1000 ML 1,000 ML IV SCH ×5 (01:15→21:33)
[2017-10-04] MEDS: CARAFATE PO SCH ×4 (06:07→21:33)
[2017-10-04] MEDS: HumuLIN R SUBCUT PRN ×3 (06:15→16:38)
[2017-10-04] MEDS: SODIUM BICARBONATE TAB 650MG PO SCH ×3 (06:15→16:32)
[2017-10-04] MEDS: NORCO 10/325 TAB PO PRN ×2 (06:16→17:01)
[2017-10-04 06:49] LABS: EOSINOPHILS # (AUTO) 0.1 x10^3/uL (0.0-0.2); EOSINOPHILS % (AUTO) 2.8 % (0.9-2.9); HEMATOCRIT 20.4 % (36.0-47.0); LYMPHOCYTES # (AUTO) 1.1 X10^3/uL (1.3-2.9); LYMPHOCYTES % (AUTO) 26.4 % (21.0-51.0); MEAN CORPUSCULAR HEMOGLOBIN 32.3 pg (27.0-34.0); MEAN CORPUSCULAR VOLUME 94.8 fL (80.0-100.0); MEAN PLATELET VOLUME 11.2 fL (7.4-11.0); MONOCYTES # (AUTO) 0.3 x10^3/uL (0.3-0.8); MONOCYTES % (AUTO) 8.4 % (0.0-13.0); NEUTROPHILS # (AUTO) 2.5 x10^3/uL (2.2-4.8); NEUTROPHILS % (AUTO) 61.4 % (42.0-75.0); PLATELET COUNT 104 X10^3/uL (150.0-450.0); RED BLOOD COUNT 2.15 X10^6/uL (3.5-5.4); RED CELL DISTRIBUTION WIDTH 15.1 % (11.6-16.5); WHITE BLOOD COUNT 4.1 X10^3/uL (3.6-10.0)
[2017-10-04 06:51] LABS: HEMOGLOBIN 6.9 g/dL (12.0-16.0)
[2017-10-04 06:57] LABS: ALBUMIN 2.8 g/dL (3.4-5.0); CARBON DIOXIDE 16.5 mmol/L (21-32); CREATININE 3.81 mg/dL (0.55-1.02); TOTAL PROTEIN 6.7 g/dL (6.4-8.2)
[2017-10-04 07:09] LABS: COR CA(FOR HYPOALB) 7.1 mg/dL (8.5-10.1)
[2017-10-04] MEDS ORDERED: FUROSEMIDE PO SCH (09:00)
[2017-10-04] MEDS ORDERED: PATIENT'S HOME MEDICATION (Losartan Potassium [Losartan Potassium] 25 MG) PO SCH (09:00)
[2017-10-04] MEDS: NS IV SCH (09:16)
[2017-10-04] MEDS: PROTONIX TAB 40 MG PO SCH (09:16)
[2017-10-04] MEDS: MAXIPIME IV SCH (09:16)
[2017-10-04] MEDS: LOPRESSOR TAB 25 MG PO SCH ×2 (09:17→23:17)
[2017-10-04] MEDS: LASIX PO SCH (09:17)
[2017-10-04] MEDS: NYSTATIN POWDER TOP SCH ×2 (09:19→21:33)
[2017-10-04] MEDS: COZAAR PO SCH (09:19)
[2017-10-04] MEDS: PLAVIX PO SCH (09:19)
[2017-10-04] MEDS: LIPITOR TAB 20 MG PO SCH (09:19)
[2017-10-04] MEDS: SNACK - Diabetic Appropriate PO SCH (20:30)
[2017-10-04] MEDS: CELEXA PO SCH (21:33)
[2017-10-05 05:25] LABS: BASOPHILS # (AUTO) 0.1 X10^3/uL (0.0-0.1); BASOPHILS % (AUTO) 1.4 % (0.2-1.0); EOSINOPHILS # (AUTO) 0.1 x10^3/uL (0.0-0.2); EOSINOPHILS % (AUTO) 3.4 % (0.9-2.9); HEMATOCRIT 20.4 % (36.0-47.0); LYMPHOCYTES # (AUTO) 1.2 X10^3/uL (1.3-2.9); LYMPHOCYTES % (AUTO) 32.2 % (21.0-51.0); MEAN CORPUSCULAR HEMOGLOBIN 32.2 pg (27.0-34.0); MEAN CORPUSCULAR HGB CONC 33.3 g/dL (33.0-35.0); MEAN CORPUSCULAR VOLUME 96.9 fL (80.0-100.0); MEAN PLATELET VOLUME 11.1 fL (7.4-11.0); MONOCYTES # (AUTO) 0.3 x10^3/uL (0.3-0.8); MONOCYTES % (AUTO) 8.2 % (0.0-13.0); NEUTROPHILS % (AUTO) 54.8 % (42.0-75.0); PLATELET COUNT 99 X10^3/uL (150.0-450.0); RED BLOOD COUNT 2.11 X10^6/uL (3.5-5.4); RED CELL DISTRIBUTION WIDTH 14.8 % (11.6-16.5); WHITE BLOOD COUNT 3.7 X10^3/uL (3.6-10.0)
[2017-10-05 05:46] LABS: ALBUMIN 2.5 g/dL (3.4-5.0); CARBON DIOXIDE 16.8 mmol/L (21-32); COR CA(FOR HYPOALB) 7.1 mg/dL (8.5-10.1); CREATININE 3.17 mg/dL (0.55-1.02); TOTAL PROTEIN 6.2 g/dL (6.4-8.2)
[2017-10-05] MEDS: CARAFATE PO SCH ×4 (05:53→20:11)
[2017-10-05] MEDS: NS 1000 ML 1,000 ML IV SCH ×3 (05:53→16:30)
[2017-10-05] MEDS: NORCO 10/325 TAB PO PRN (05:53)
[2017-10-05] MEDS: HumuLIN R SUBCUT PRN ×3 (06:03→20:12)
[2017-10-05] MEDS: SODIUM BICARBONATE TAB 650MG PO SCH ×3 (06:03→16:30)
[2017-10-05 06:14] LABS: HEMOGLOBIN 6.8 g/dL (12.0-16.0)
[2017-10-05 06:18] LABS: CALCIUM 5.9 mg/dL (8.5-10.1)
[2017-10-05] MEDS: COZAAR PO SCH (09:35)
[2017-10-05] MEDS: LIPITOR TAB 20 MG PO SCH (09:36)
[2017-10-05] MEDS: LOPRESSOR TAB 25 MG PO SCH ×2 (09:36→20:11)
[2017-10-05] MEDS: LASIX PO SCH (09:37)
[2017-10-05] MEDS: NS IV SCH (09:37)
[2017-10-05] MEDS: MAXIPIME IV SCH (09:37)
[2017-10-05] MEDS: NYSTATIN POWDER TOP SCH ×2 (09:38→20:11)
[2017-10-05] MEDS: PLAVIX PO SCH (09:38)
[2017-10-05] MEDS: PROTONIX TAB 40 MG PO SCH (09:38)
[2017-10-05] MEDS: MORPHINE SULFATE INJ 2 MG INJ IVP PRN ×5 (09:39→23:20)
[2017-10-05] MEDS: SNACK - Diabetic Appropriate PO SCH (20:01)
[2017-10-05] MEDS: CELEXA PO SCH (20:11)
[2017-10-06] MEDS: NS 1000 ML 1,000 ML IV SCH ×4 (00:04→23:12)
[2017-10-06] MEDS: MORPHINE SULFATE INJ 2 MG INJ IVP PRN ×5 (03:00→23:10)
[2017-10-06] MEDS: ZOFRAN INJ 4 MG VIAL IVP PRN ×3 (03:00→22:07)
[2017-10-06 05:33] LABS: BASOPHILS % (AUTO) 1.1 % (0.2-1.0); EOSINOPHILS # (AUTO) 0.1 x10^3/uL (0.0-0.2); EOSINOPHILS % (AUTO) 3.1 % (0.9-2.9); HEMATOCRIT 22.4 % (36.0-47.0); HEMOGLOBIN 7.5 g/dL (12.0-16.0); LYMPHOCYTES # (AUTO) 0.9 X10^3/uL (1.3-2.9); LYMPHOCYTES % (AUTO) 19.6 % (21.0-51.0); MEAN CORPUSCULAR HEMOGLOBIN 32.2 pg (27.0-34.0); MEAN CORPUSCULAR HGB CONC 33.4 g/dL (33.0-35.0); MEAN CORPUSCULAR VOLUME 96.4 fL (80.0-100.0); MEAN PLATELET VOLUME 10.5 fL (7.4-11.0); MONOCYTES # (AUTO) 0.2 x10^3/uL (0.3-0.8); MONOCYTES % (AUTO) 5.7 % (0.0-13.0); NEUTROPHILS # (AUTO) 3.1 x10^3/uL (2.2-4.8); NEUTROPHILS % (AUTO) 70.5 % (42.0-75.0); PLATELET COUNT 121 X10^3/uL (150.0-450.0); RED BLOOD COUNT 2.32 X10^6/uL (3.5-5.4); WHITE BLOOD COUNT 4.4 X10^3/uL (3.6-10.0)
[2017-10-06 05:51] LABS: PLATELET MORPHOLOGY COMMENT NORMAL (NORMAL)
[2017-10-06 05:59] LABS: ALBUMIN 2.6 g/dL (3.4-5.0); CALCIUM 6.3 mg/dL (8.5-10.1); CARBON DIOXIDE 18.2 mmol/L (21-32); COR CA(FOR HYPOALB) 7.4 mg/dL (8.5-10.1); CREATININE 2.45 mg/dL (0.55-1.02); TOTAL PROTEIN 6.6 g/dL (6.4-8.2)
[2017-10-06] MEDS: SODIUM BICARBONATE TAB 650MG PO SCH ×3 (06:05→16:06)
[2017-10-06] MEDS: CARAFATE PO SCH ×4 (06:05→20:03)
[2017-10-06] MEDS: HumuLIN R SUBCUT PRN ×4 (06:06→20:03)
[2017-10-06] MEDS: NORCO 10/325 TAB PO PRN (07:27)
[2017-10-06 07:40] LABS: CALCIUM 6.1 mg/dL (8.5-10.1)
[2017-10-06] MEDS: NS IV SCH (08:32)
[2017-10-06] MEDS: NYSTATIN POWDER TOP SCH ×2 (08:32→20:03)
[2017-10-06] MEDS: LIPITOR TAB 20 MG PO SCH (08:32)
[2017-10-06] MEDS: MAXIPIME IV SCH (08:32)
[2017-10-06] MEDS: LOPRESSOR TAB 25 MG PO SCH ×2 (08:33→20:03)
[2017-10-06] MEDS: COZAAR PO SCH (08:33)
[2017-10-06] MEDS: PROTONIX TAB 40 MG PO SCH (08:33)
[2017-10-06] MEDS: LASIX PO SCH (08:33)
[2017-10-06] MEDS: PLAVIX PO SCH (08:33)
[2017-10-06] MEDS: SNACK - Diabetic Appropriate PO SCH (19:54)
[2017-10-06] MEDS: CELEXA PO SCH (20:03)
--- NOTE | 2017-10-06 21:06 | PCM.PROG ---
Progress Note - Progress Note for Day of Date: 10/05/17 - Subjective Subjective: IS BEING TREATMED FOR ACUTE RENAL FAILURE AND A URINARY TRACT INFECTION. TODAY, SHE IS ALERT AND ORIENTED, LYING IN BED ON MORNING ROUNDS. SHE IS NOTED WITH COMPLAINTS OF GENERALIZED WEAKNESS AND ABDOMINAL PAIN. ON EXAMINATION, HEART IS REGULAR IN RATE AND RHYTHM. BILATERAL LUNGS ARE NOTED WITH DIMINISHED LUNG SOUNDS THROUGHOUT. ABDOMEN IS ROUND, SOFT, AND NOTED WITH EPIGASTRIC TENDERNESS ON PALPATION. NORMAL BOWEL SOUNDS NOTED IN ALL QUADRANTS. HER VITALS THIS MORNING ARE 98.5-69-24-99%-117/61. LABS WERE OBTAINED. RBC 2.11, HGB 6.8, HCT 20.4, PLT COUNT 99, CHLORIDE 113, CARBON DIOXIDE 16.8, BUN 93, CREATININ 3.17, GLUCOSE 244, CALCIUM 5.9, TOTAL PROTEIN 6.2, ALBUMIN 2.5. SHE IS CURRENTLY RECEIVING MAXIPIME 1GM IV DAILY AND NORMAL SALINE AT 75ML/HR. WE WILL CONTINUE WITH CURRENT PLAN OF CARE TODAY. WE PLAN TO FOLLOW UP WITH AM LABS AND CONTINUE TO MONITOR PATIENT. - Past Medical Family Social History Past Med/Fam/Surg Hx: No changes since H&P Allergies: Allergies No Known Drug Allergies Allergy (Verified 10/02/17 10:39) - Review of Systems ROS: No change since H&P - Vital Signs and I&O's Vital Signs: Temperature 98.5 F Pulse Rate [Left Brachial] 65 Pulse Rate 63 Respiratory Rate 13 Blood Pressure [Left Arm] 114/62 Blood Pressure [Right Arm] 133/63 Blood Pressure 90/66 O2 Sat by Pulse Oximetry 99 Intake and Output: Intake & Output 10/04/17 10/05/17 10/06/17 10/07/17 11:59 11:59 11:59 11:59 Intake Total 1883 3251 3712 1204 Output Total 2200 2100 3150 1000 Balance -317 1151 562 204 - Physical Exam Oriented: Normal Eyes: Other (BLINDNESS) Ear: Normal Nose: Normal Throat: Normal Respiratory: Diminished Cardiovascular: Tachycardia : Normal Auscultation: Bowel Sounds: Normal Palpation: Normal Tenderness: RUQ, LUQ, Epigastric Skin: Decreased Turgur Musculoskeletal: Left, Shoulder, Back:Lumbar, Deformity (R BKA), Motor Deficit, Sensory Deficit Psychiatric: Anxiety, Depression Mood Description: Depressed Speech Pattern: Clear, Appropriate - Laboratory and Diagnostics Result Diagrams: 10/06/17 05:15 10/06/17 05:15 Labs: 10/02/17 14:48 Blood Blood Culture - Preliminary 10/02/17 14:43 Blood Blood Culture - Preliminary 10/02/17 15:30 Urine,Clean Catch Urine Culture - Final Laboratory WBC 4.4 X10^3/uL (3.6-10.0) 10/06/17 05:15 RBC 2.32 X10^6/uL (3.5-5.4) L 10/06/17 05:15 Hgb 7.5 g/dL (12.0-16.0) L 10/06/17 05:15 Hct 22.4 % (36.0-47.0) L 10/06/17 05:15 MCV 96.4 fL (80.0-100.0) 10/06/17 05:15 MCH 32.2 pg (27.0-34.0) 10/06/17 05:15 MCHC 33.4 g/dL (33.0-35.0) 10/06/17 05:15 RDW 15.0 % (11.6-16.5) 10/06/17 05:15 Plt Count 121 X10^3/uL (150.0-450.0) L 10/06/17 05:15 Plt Count Comment Decreased (ADEQUATE) A 10/06/17 05:15 MPV 10.5 fL (7.4-11.0) 10/06/17 05:15 Neut % (Auto) 70.5 % (42.0-75.0) 10/06/17 05:15 Lymph % (Auto) 19.6 % (21.0-51.0) L 10/06/17 05:15 [place] % (Auto) 5.7 % (0.0-13.0) 10/06/17 05:15 Eos % (Auto) 3.1 % (0.9-2.9) H 10/06/17 05:15 Baso % (Auto) 1.1 % (0.2-1.0) H 10/06/17 05:15 Neut # (Auto) 3.1 x10^3/uL (2.2-4.8) 10/06/17 05:15 Lymph # (Auto) 0.9 X10^3/uL (1.3-2.9) L 10/06/17 05:15 [place] # (Auto) 0.2 x10^3/uL (0.3-0.8) L 10/06/17 05:15 Eos # (Auto) 0.1 x10^3/uL (0.0-0.2) 10/06/17 05:15 Baso # (Auto) 0.0 X10^3/uL (0.0-0.1) 10/06/17 05:15 Absolute Nucleated RBC 0.1 /100WBC 10/06/17 05:15 Plt Morphology Comment Normal (NORMAL) 10/06/17 05:15 RBC Morphology Normal (NORMAL) 10/06/17 05:15 Hypochromasia Slight A 10/02/17 15:47 INR Target Range - 10/02/17 11:10 INR 1.12 (0.8-1.3) 10/02/17 11:10 APTT 27.5 SECONDS (22.9-36.5) 10/02/17 11:10 PTT Comment - 10/02/17 11:10 Sample Site Lba 10/03/17 09:30 ABG pH 7.250 (7.35-7.45) L 10/03/17 09:30 ABG pCO2 33.0 mmHg (35.0-45.0) L 10/03/17 09:30 ABG pO2 85.0 mmHg (80.0-100.0) 10/03/17 09:30 ABG HCO3 14.5 mmol/L (22-26) L* 10/03/17 09:30 ABG O2 Saturation 95.0 % (90-100) 10/03/17 09:30 ABG Base Excess -11.7 mmol/L (-2.0-2.0) L 10/03/17 09:30 Nathan Test Na 10/03/17 09:30 A-a Gradient 73.0 mmHg 10/03/17 09:30 FiO2 28.000 10/03/17 09:30 Blood Gas Comments Jona well cs 10/03/17 09:30 Sodium 145 mmol/L (136-145) 10/06/17 05:15 Corrected Sodium 148 mmol/L (136-145) H 10/06/17 05:15 Potassium 3.9 mmol/L (3.5-5.1) 10/06/17 05:15 Chloride 113 mmol/L (98-107) H 10/06/17 05:15 Carbon Dioxide 18.2 mmol/L (21-32) L 10/06/17 05:15 BUN 76 mg/dL (7-18) H 10/06/17 05:15 Creatinine 2.45 mg/dL (0.55-1.02) H 10/06/17 05:15 Est GFR (MDRD) Af Amer 28 (>60) L 10/06/17 05:15 Est GFR (MDRD) Non-Af 23 (>60) L 10/06/17 05:15 Glucose 228 mg/dL (65-99) H 10/06/17 05:15 POC Glucose (mg/dL) 266 mg/dL (65-99) H 10/06/17 19:51 Lactic Acid 1.3 mmol/L (0.4-2.0) 10/02/17 17:00 Calcium 6.3 mg/dL (8.5-10.1) L 10/06/17 05:15 Corrected Calcium 7.4 mg/dL (8.5-10.1) L 10/06/17 05:15 Magnesium 2.1 mg/dL (1.7-2.9) 10/03/17 05:10 Total Bilirubin 0.30 mg/dL (0.2-1.0) 10/06/17 05:15 AST 15 Units/L (15-37) 10/06/17 05:15 ALT 49 Units/L (12-78) 10/06/17 05:15 Alkaline Phosphatase 103 Units/L (46-116) 10/06/17 05:15 Creatine Kinase 4154 Units/L (26-192) H 10/03/17 05:10 CK-MB (CK-2) 15.7 ng/mL (0-4.0) H* 10/03/17 05:10 CK/CKMB % Calc 0.4 % (<4) 10/03/17 05:10 Troponin I < 0.02 ng/mL (0-1.5) 10/03/17 05:10 Total Protein 6.6 g/dL (6.4-8.2) 10/06/17 05:15 Albumin 2.6 g/dL (3.4-5.0) L 10/06/17 05:15 Globulin 4.0 g/dL (2.5-4.5) 10/06/17 05:15 Albumin/Globulin Ratio 0.7 Ratio (1.1-2.1) L 10/06/17 05:15 Specimen Type Catherized urine 10/02/17 15:30 Urine Color Yellow (YELLOW) 10/02/17 15:30 Urine Appearance Cloudy (CLEAR) 10/02/17 15:30 Urine pH 5.0 (5.0 - 8.0) 10/02/17 15:30 Ur Specific [place] 1.020 (1.000-1.030) 10/02/17 15:30 Urine Protein 2+ (NEGATIVE) 10/02/17 15:30 Urine Glucose (UA) 2+ (NEGATIVE) 10/02/17 15:30 Urine Ketones Negative (NEGATIVE) 10/02/17 15:30 Urine Occult Blood 3+ (NEGATIVE) 10/02/17 15:30 Urine Nitrite Negative (NEGATIVE) 10/02/17 15:30 Urine Bilirubin 1+ (NEGATIVE) 10/02/17 15:30 Urine Urobilinogen Normal (NORMAL) 10/02/17 15:30 Ur Leukocyte Esterase 3+ (NEGATIVE) 10/02/17 15:30 Urine RBC 10-20 /HPF (NONE SEEN) 10/02/17 15:30 Urine WBC Tntc /HPF (NONE SEEN) 10/02/17 15:30 Ur Squamous Epith Cells Rare /HPF (NEGATIVE) 10/02/17 15:30 Amorphous Sediment 1+ /HPF (NEGATIVE) 10/02/17 15:30 Urine Bacteria 2+ /HPF (NEGATIVE) 10/02/17 15:30 Hyaline Casts Rare /LPF (NEGATIVE) 10/02/17 15:30 Ur Culture Indicated? Yes/culture set up 10/02/17 15:30 Acetone, Semi-Quant Negative (NEGATIVE) 10/02/17 14:48 Blood Type A POSITIVE 10/03/17 08:30 Antibody Screen Negative 10/03/17 08:30
--- NOTE | 2017-10-06 22:35 | PCM.PROG ---
Progress Note - Progress Note for Day of Date: 10/06/17 - Subjective Subjective: IS BEING TREATMED FOR ACUTE RENAL FAILURE AND A URINARY TRACT INFECTION. TODAY, SHE IS ALERT AND ORIENTED, LYING IN BED ON MORNING ROUNDS. SHE CONTINUES WITH COMPLAINTS OF GENERALIZED WEAKNESS. ON EXAMINATION, HEART IS REGULAR IN RATE AND RHYTHM. BILATERAL LUNGS ARE NOTED WITH DIMINISHED LUNG SOUNDS THROUGHOUT. ABDOMEN IS ROUND, SOFT, AND NON-TENDER WITH NORMAL BOWEL SOUNDS NOTED IN ALL QUADRANTS. HER VITALS THIS MORNING ARE 100.7-64-26-100 %-107/57. LABS WERE OBTAINED. RBC 2.32, HGB INCREASED FROM 6.8 TO 7.5, HCT 22.4 , PLT COUNT 121, CHLORIDE 113, BUN 76, CREATININE 2.45, GLUCOSE 228, CALCIUM 7.3 , ALBUMIN 2.6 SHE IS CURRENTLY RECEIVING MAXIPIME 1GM IV DAILY AND NORMAL SALINE AT 75ML/HR. WE WILL CONTINUE WITH CURRENT PLAN OF CARE TODAY. WE PLAN TO FOLLOW UP WITH AM LABS AND CONTINUE TO MONITOR PATIENT. - Past Medical Family Social History Past Med/Fam/Surg Hx: No changes since H&P Allergies: Allergies No Known Drug Allergies Allergy (Verified 10/02/17 10:39) - Review of Systems ROS: No change since H&P - Vital Signs and I&O's Vital Signs: Temperature 98.5 F Pulse Rate [Left Brachial] 65 Pulse Rate 63 Respiratory Rate 13 Blood Pressure [Left Arm] 114/62 Blood Pressure [Right Arm] 133/63 Blood Pressure 90/66 O2 Sat by Pulse Oximetry 99 Intake and Output: Intake & Output 10/04/17 10/05/17 10/06/17 10/07/17 11:59 11:59 11:59 11:59 Intake Total 1883 3251 3712 1204 Output Total 2200 2100 3150 1000 Balance -317 1151 562 204 - Physical Exam Oriented: Normal Eyes: Other (BLINDNESS) Ear: Normal Nose: Normal Throat: Normal Respiratory: Diminished Cardiovascular: Tachycardia : Normal Auscultation: Bowel Sounds: Normal Palpation: Normal Tenderness: RUQ, LUQ, Epigastric Skin: Decreased Turgur Musculoskeletal: Left, Shoulder, Back:Lumbar, Deformity (R BKA), Motor Deficit, Sensory Deficit Psychiatric: Anxiety, Depression Mood Description: Depressed Speech Pattern: Clear, Appropriate - Laboratory and Diagnostics Result Diagrams: 10/06/17 05:15 10/06/17 05:15 Labs: 10/02/17 14:48 Blood Blood Culture - Preliminary 10/02/17 14:43 Blood Blood Culture - Preliminary 10/02/17 15:30 Urine,Clean Catch Urine Culture - Final Laboratory WBC 4.4 X10^3/uL (3.6-10.0) 10/06/17 05:15 RBC 2.32 X10^6/uL (3.5-5.4) L 10/06/17 05:15 Hgb 7.5 g/dL (12.0-16.0) L 10/06/17 05:15 Hct 22.4 % (36.0-47.0) L 10/06/17 05:15 MCV 96.4 fL (80.0-100.0) 10/06/17 05:15 MCH 32.2 pg (27.0-34.0) 10/06/17 05:15 MCHC 33.4 g/dL (33.0-35.0) 10/06/17 05:15 RDW 15.0 % (11.6-16.5) 10/06/17 05:15 Plt Count 121 X10^3/uL (150.0-450.0) L 10/06/17 05:15 Plt Count Comment Decreased (ADEQUATE) A 10/06/17 05:15 MPV 10.5 fL (7.4-11.0) 10/06/17 05:15 Neut % (Auto) 70.5 % (42.0-75.0) 10/06/17 05:15 Lymph % (Auto) 19.6 % (21.0-51.0) L 10/06/17 05:15 [place] % (Auto) 5.7 % (0.0-13.0) 10/06/17 05:15 Eos % (Auto) 3.1 % (0.9-2.9) H 10/06/17 05:15 Baso % (Auto) 1.1 % (0.2-1.0) H 10/06/17 05:15 Neut # (Auto) 3.1 x10^3/uL (2.2-4.8) 10/06/17 05:15 Lymph # (Auto) 0.9 X10^3/uL (1.3-2.9) L 10/06/17 05:15 [place] # (Auto) 0.2 x10^3/uL (0.3-0.8) L 10/06/17 05:15 Eos # (Auto) 0.1 x10^3/uL (0.0-0.2) 10/06/17 05:15 Baso # (Auto) 0.0 X10^3/uL (0.0-0.1) 10/06/17 05:15 Absolute Nucleated RBC 0.1 /100WBC 10/06/17 05:15 Plt Morphology Comment Normal (NORMAL) 10/06/17 05:15 RBC Morphology Normal (NORMAL) 10/06/17 05:15 Hypochromasia Slight A 10/02/17 15:47 INR Target Range - 10/02/17 11:10 INR 1.12 (0.8-1.3) 10/02/17 11:10 APTT 27.5 SECONDS (22.9-36.5) 10/02/17 11:10 PTT Comment - 10/02/17 11:10 Sample Site Lba 10/03/17 09:30 ABG pH 7.250 (7.35-7.45) L 10/03/17 09:30 ABG pCO2 33.0 mmHg (35.0-45.0) L 10/03/17 09:30 ABG pO2 85.0 mmHg (80.0-100.0) 10/03/17 09:30 ABG HCO3 14.5 mmol/L (22-26) L* 10/03/17 09:30 ABG O2 Saturation 95.0 % (90-100) 10/03/17 09:30 ABG Base Excess -11.7 mmol/L (-2.0-2.0) L 10/03/17 09:30 Nathan Test Na 10/03/17 09:30 A-a Gradient 73.0 mmHg 10/03/17 09:30 FiO2 28.000 10/03/17 09:30 Blood Gas Comments Jona well cs 10/03/17 09:30 Sodium 145 mmol/L (136-145) 10/06/17 05:15 Corrected Sodium 148 mmol/L (136-145) H 10/06/17 05:15 Potassium 3.9 mmol/L (3.5-5.1) 10/06/17 05:15 Chloride 113 mmol/L (98-107) H 10/06/17 05:15 Carbon Dioxide 18.2 mmol/L (21-32) L 10/06/17 05:15 BUN 76 mg/dL (7-18) H 10/06/17 05:15 Creatinine 2.45 mg/dL (0.55-1.02) H 10/06/17 05:15 Est GFR (MDRD) Af Amer 28 (>60) L 10/06/17 05:15 Est GFR (MDRD) Non-Af 23 (>60) L 10/06/17 05:15 Glucose 228 mg/dL (65-99) H 10/06/17 05:15 POC Glucose (mg/dL) 266 mg/dL (65-99) H 10/06/17 19:51 Lactic Acid 1.3 mmol/L (0.4-2.0) 10/02/17 17:00 Calcium 6.3 mg/dL (8.5-10.1) L 10/06/17 05:15 Corrected Calcium 7.4 mg/dL (8.5-10.1) L 10/06/17 05:15 Magnesium 2.1 mg/dL (1.7-2.9) 10/03/17 05:10 Total Bilirubin 0.30 mg/dL (0.2-1.0) 10/06/17 05:15 AST 15 Units/L (15-37) 10/06/17 05:15 ALT 49 Units/L (12-78) 10/06/17 05:15 Alkaline Phosphatase 103 Units/L (46-116) 10/06/17 05:15 Creatine Kinase 4154 Units/L (26-192) H 10/03/17 05:10 CK-MB (CK-2) 15.7 ng/mL (0-4.0) H* 10/03/17 05:10 CK/CKMB % Calc 0.4 % (<4) 10/03/17 05:10 Troponin I < 0.02 ng/mL (0-1.5) 10/03/17 05:10 Total Protein 6.6 g/dL (6.4-8.2) 10/06/17 05:15 Albumin 2.6 g/dL (3.4-5.0) L 10/06/17 05:15 Globulin 4.0 g/dL (2.5-4.5) 10/06/17 05:15 Albumin/Globulin Ratio 0.7 Ratio (1.1-2.1) L 10/06/17 05:15 Specimen Type Catherized urine 10/02/17 15:30 Urine Color Yellow (YELLOW) 10/02/17 15:30 Urine Appearance Cloudy (CLEAR) 10/02/17 15:30 Urine pH 5.0 (5.0 - 8.0) 10/02/17 15:30 Ur Specific [place] 1.020 (1.000-1.030) 10/02/17 15:30 Urine Protein 2+ (NEGATIVE) 10/02/17 15:30 Urine Glucose (UA) 2+ (NEGATIVE) 10/02/17 15:30 Urine Ketones Negative (NEGATIVE) 10/02/17 15:30 Urine Occult Blood 3+ (NEGATIVE) 10/02/17 15:30 Urine Nitrite Negative (NEGATIVE) 10/02/17 15:30 Urine Bilirubin 1+ (NEGATIVE) 10/02/17 15:30 Urine Urobilinogen Normal (NORMAL) 10/02/17 15:30 Ur Leukocyte Esterase 3+ (NEGATIVE) 10/02/17 15:30 Urine RBC 10-20 /HPF (NONE SEEN) 10/02/17 15:30 Urine WBC Tntc /HPF (NONE SEEN) 10/02/17 15:30 Ur Squamous Epith Cells Rare /HPF (NEGATIVE) 10/02/17 15:30 Amorphous Sediment 1+ /HPF (NEGATIVE) 10/02/17 15:30 Urine Bacteria 2+ /HPF (NEGATIVE) 10/02/17 15:30 Hyaline Casts Rare /LPF (NEGATIVE) 10/02/17 15:30 Ur Culture Indicated? Yes/culture set up 10/02/17 15:30 Acetone, Semi-Quant Negative (NEGATIVE) 10/02/17 14:48 Blood Type A POSITIVE 10/03/17 08:30 Antibody Screen Negative 10/03/17 08:30
[2017-10-07] MEDS: NS 1000 ML 1,000 ML IV SCH ×2 (01:15→05:38)
[2017-10-07] MEDS: MORPHINE SULFATE INJ 2 MG INJ IVP PRN ×6 (03:10→23:37)
[2017-10-07] MEDS: PHENERGAN INJ 25 MG IV PRN ×4 (03:10→23:37)
[2017-10-07] MEDS: CARAFATE PO SCH ×4 (05:39→20:07)
[2017-10-07] MEDS: HumuLIN R SUBCUT PRN ×4 (05:43→20:05)
[2017-10-07] MEDS: SODIUM BICARBONATE TAB 650MG PO SCH ×3 (06:13→16:41)
[2017-10-07 06:48] LABS: BASOPHILS # (AUTO) 0.1 X10^3/uL (0.0-0.1); BASOPHILS % (AUTO) 1.1 % (0.2-1.0); EOSINOPHILS # (AUTO) 0.1 x10^3/uL (0.0-0.2); EOSINOPHILS % (AUTO) 2.2 % (0.9-2.9); HEMATOCRIT 23.8 % (36.0-47.0); HEMOGLOBIN 8.1 g/dL (12.0-16.0); LYMPHOCYTES % (AUTO) 18.4 % (21.0-51.0); MEAN CORPUSCULAR HEMOGLOBIN 32.4 pg (27.0-34.0); MEAN CORPUSCULAR HGB CONC 34.1 g/dL (33.0-35.0); MEAN CORPUSCULAR VOLUME 95.1 fL (80.0-100.0); MEAN PLATELET VOLUME 10.2 fL (7.4-11.0); MONOCYTES # (AUTO) 0.2 x10^3/uL (0.3-0.8); MONOCYTES % (AUTO) 4.1 % (0.0-13.0); NEUTROPHILS # (AUTO) 3.8 x10^3/uL (2.2-4.8); NEUTROPHILS % (AUTO) 74.2 % (42.0-75.0); PLATELET COUNT 143 X10^3/uL (150.0-450.0); RED BLOOD COUNT 2.51 X10^6/uL (3.5-5.4); RED CELL DISTRIBUTION WIDTH 15.2 % (11.6-16.5); WHITE BLOOD COUNT 5.2 X10^3/uL (3.6-10.0)
[2017-10-07 07:00] LABS: ALBUMIN 2.7 g/dL (3.4-5.0); CALCIUM 6.5 mg/dL (8.5-10.1); CARBON DIOXIDE 18.9 mmol/L (21-32); COR CA(FOR HYPOALB) 7.5 mg/dL (8.5-10.1); CREATININE 2.12 mg/dL (0.55-1.02); TOTAL PROTEIN 6.8 g/dL (6.4-8.2)
[2017-10-07] MEDS: ZOFRAN INJ 4 MG VIAL IVP PRN ×2 (07:04→14:35)
[2017-10-07] MEDS ORDERED: MILK OF MAGNESIA PO PRN (08:06)
[2017-10-07] MEDS: COZAAR PO SCH (08:18)
[2017-10-07] MEDS: LOPRESSOR TAB 25 MG PO SCH ×2 (08:19→20:07)
[2017-10-07] MEDS ORDERED: REGLAN INJ 10 MG VIAL ONE (09:16)
[2017-10-07] MEDS ORDERED: REGLAN INJ 10 MG VIAL IVP ONE (09:17)
[2017-10-07] MEDS: SPIKE MINIBAG IV SCH (09:22)
[2017-10-07] MEDS: NS IV SCH (09:22)
[2017-10-07] MEDS: MAXIPIME IV SCH (09:22)
[2017-10-07] MEDS ORDERED: NS 1/2 1000 ML IV 1,000 ML IV ONE (10:56)
[2017-10-07] MEDS: PROTONIX TAB 40 MG PO SCH (11:23)
[2017-10-07] MEDS: PLAVIX PO SCH (11:23)
[2017-10-07] MEDS: COLACE CAP 100 MG PO PRN (11:23)
[2017-10-07] MEDS: LIPITOR TAB 20 MG PO SCH (11:23)
[2017-10-07] MEDS: NS 1/2 1000 ML IV 1,000 ML IV SCH (11:24)
[2017-10-07] MEDS: LASIX PO SCH (11:24)
[2017-10-07] MEDS: NYSTATIN POWDER TOP SCH ×2 (11:24→20:07)
--- NOTE | 2017-10-07 14:58 | RAD ---
HISTORY: Intractable nausea and vomiting Study: KUB Comparison: 08/13/2017 Findings: Supine views are submitted. Previous cholecystectomy is noted. There are surgical clips in the pelvis . The bowel gas pattern is overall nonobstructive. There is some retained stool seen in the right abd omen. No gross pneumoperitoneum is identified. No abnormal calcifications are seen. The soft tissues are intact. IMPRESSION: 1. Negative supine abdominal radiographs. Reported By:
[2017-10-07] MEDS: REGLAN TAB 10 MG PO SCH ×2 (16:41→20:15)
[2017-10-07] MEDS: SNACK - Diabetic Appropriate PO SCH (20:04)
[2017-10-07] MEDS: CELEXA PO SCH (20:07)
[2017-10-08] MEDS: NS 1/2 1000 ML IV 1,000 ML IV SCH ×4 (00:15→22:45)
[2017-10-08] MEDS ORDERED: NS 1/2 1000 ML IV 1,000 ML IV ONE ×2 (03:19→22:42)
[2017-10-08] MEDS: MORPHINE SULFATE INJ 2 MG INJ IVP PRN ×5 (03:22→21:30)
[2017-10-08 05:26] LABS: BASOPHILS # (AUTO) 0.1 X10^3/uL (0.0-0.1); BASOPHILS % (AUTO) 1.2 % (0.2-1.0); EOSINOPHILS # (AUTO) 0.2 x10^3/uL (0.0-0.2); HEMATOCRIT 22.4 % (36.0-47.0); HEMOGLOBIN 7.5 g/dL (12.0-16.0); LYMPHOCYTES # (AUTO) 1.3 X10^3/uL (1.3-2.9); LYMPHOCYTES % (AUTO) 25.8 % (21.0-51.0); MEAN CORPUSCULAR HEMOGLOBIN 31.7 pg (27.0-34.0); MEAN CORPUSCULAR HGB CONC 33.4 g/dL (33.0-35.0); MEAN CORPUSCULAR VOLUME 95.2 fL (80.0-100.0); MEAN PLATELET VOLUME 10.6 fL (7.4-11.0); MONOCYTES # (AUTO) 0.3 x10^3/uL (0.3-0.8); MONOCYTES % (AUTO) 6.4 % (0.0-13.0); NEUTROPHILS # (AUTO) 3.3 x10^3/uL (2.2-4.8); NEUTROPHILS % (AUTO) 63.6 % (42.0-75.0); PLATELET COUNT 140 X10^3/uL (150.0-450.0); RED BLOOD COUNT 2.35 X10^6/uL (3.5-5.4); RED CELL DISTRIBUTION WIDTH 15.2 % (11.6-16.5); WHITE BLOOD COUNT 5.1 X10^3/uL (3.6-10.0)
[2017-10-08] MEDS: PHENERGAN INJ 25 MG IV PRN ×3 (05:27→20:08)
[2017-10-08] MEDS: HumuLIN R SUBCUT PRN ×4 (05:27→20:08)
[2017-10-08] MEDS: REGLAN TAB 10 MG PO SCH ×4 (05:33→20:07)
[2017-10-08] MEDS: CARAFATE PO SCH ×4 (05:33→20:07)
[2017-10-08 05:40] LABS: PLATELET MORPHOLOGY COMMENT NORMAL (NORMAL)
[2017-10-08 05:41] LABS: ALBUMIN 2.7 g/dL (3.4-5.0); CALCIUM 6.4 mg/dL (8.5-10.1); COR CA(FOR HYPOALB) 7.4 mg/dL (8.5-10.1); CREATININE 2.07 mg/dL (0.55-1.02); TOTAL PROTEIN 6.4 g/dL (6.4-8.2)
[2017-10-08] MEDS: SODIUM BICARBONATE TAB 650MG PO SCH ×3 (06:00→17:51)
[2017-10-08] MEDS: NS IV SCH (08:27)
[2017-10-08] MEDS: SPIKE MINIBAG IV SCH (08:27)
[2017-10-08] MEDS: MAXIPIME IV SCH (08:27)
[2017-10-08] MEDS: PLAVIX PO SCH (08:28)
[2017-10-08] MEDS: LIPITOR TAB 20 MG PO SCH (08:29)
[2017-10-08] MEDS: LOPRESSOR TAB 25 MG PO SCH ×2 (08:29→20:07)
[2017-10-08] MEDS: COZAAR PO SCH (08:29)
[2017-10-08] MEDS: PROTONIX TAB 40 MG PO SCH (08:30)
[2017-10-08] MEDS: LASIX PO SCH (08:30)
[2017-10-08] MEDS: ZOFRAN INJ 4 MG VIAL IVP PRN (08:32)
[2017-10-08] MEDS: NYSTATIN POWDER TOP SCH ×2 (09:00→20:07)
--- NOTE | 2017-10-08 16:44 | PCM.PROG ---
Progress Note - Progress Note for Day of Date: 10/08/17 - Subjective Subjective: IS BEING TREATMED FOR ACUTE RENAL FAILURE AND A URINARY TRACT INFECTION. TODAY, SHE IS ALERT AND ORIENTED, IMPROVING VOMITING SINCE ONE DAY AGO. KUB NORMAL FOR SBO. PT STARTED ON REGLAN AC & HS, CONTINUES WITH POOR PO INTAKE. PT CONTINUED IMPROVEMENT IN HER RENAL FUNCTION, DISTENDED ABDOMEN, WILL CT ABD R/O ASCITES - Past Medical Family Social History Past Med/Fam/Surg Hx: No changes since H&P Allergies: Allergies No Known Drug Allergies Allergy (Verified 10/02/17 10:39) - Review of Systems ROS: No change since H&P - Vital Signs and I&O's Vital Signs: Temperature 98.6 F Pulse Rate [Left Brachial] 62 Pulse Rate 63 Respiratory Rate 20 Blood Pressure [Left Arm] 114/62 Blood Pressure [Right Arm] 138/63 Blood Pressure 90/66 O2 Sat by Pulse Oximetry 97 Intake and Output: Intake & Output 10/06/17 10/07/17 10/08/17 10/09/17 11:59 11:59 11:59 11:59 Intake Total 3712 3388 2777 1044 Output Total 3150 3000 900 1200 Balance 339 696 0096 -156 - Physical Exam Oriented: Normal Eyes: Other (BLINDNESS) Ear: Normal Nose: Normal Throat: Normal Respiratory: Diminished Cardiovascular: Tachycardia : Normal Auscultation: Bowel Sounds: Decreased Palpation: Other (DISTENDED) Tenderness: RUQ, LUQ, Epigastric Skin: Normal Musculoskeletal: Left, Shoulder, Back:Lumbar, Deformity (R BKA), Motor Deficit, Sensory Deficit Psychiatric: Anxiety, Depression Mood Description: Depressed Speech Pattern: Clear, Appropriate - Laboratory and Diagnostics Result Diagrams: 10/08/17 05:00 10/08/17 05:00 Labs: 10/02/17 14:48 Blood Blood Culture - Final 10/02/17 14:43 Blood Blood Culture - Final 10/02/17 15:30 Urine,Clean Catch Urine Culture - Final Laboratory WBC 5.1 X10^3/uL (3.6-10.0) 10/08/17 05:00 RBC 2.35 X10^6/uL (3.5-5.4) L 10/08/17 05:00 Hgb 7.5 g/dL (12.0-16.0) L 10/08/17 05:00 Hct 22.4 % (36.0-47.0) L 10/08/17 05:00 MCV 95.2 fL (80.0-100.0) 10/08/17 05:00 MCH 31.7 pg (27.0-34.0) 10/08/17 05:00 MCHC 33.4 g/dL (33.0-35.0) 10/08/17 05:00 RDW 15.2 % (11.6-16.5) 10/08/17 05:00 Plt Count 140 X10^3/uL (150.0-450.0) L 10/08/17 05:00 Plt Count Comment Adequate (ADEQUATE) 10/08/17 05:00 MPV 10.6 fL (7.4-11.0) 10/08/17 05:00 Neut % (Auto) 63.6 % (42.0-75.0) 10/08/17 05:00 Lymph % (Auto) 25.8 % (21.0-51.0) 10/08/17 05:00 [place] % (Auto) 6.4 % (0.0-13.0) 10/08/17 05:00 Eos % (Auto) 3.0 % (0.9-2.9) H 10/08/17 05:00 Baso % (Auto) 1.2 % (0.2-1.0) H 10/08/17 05:00 Neut # (Auto) 3.3 x10^3/uL (2.2-4.8) 10/08/17 05:00 Lymph # (Auto) 1.3 X10^3/uL (1.3-2.9) 10/08/17 05:00 [place] # (Auto) 0.3 x10^3/uL (0.3-0.8) 10/08/17 05:00 Eos # (Auto) 0.2 x10^3/uL (0.0-0.2) 10/08/17 05:00 Baso # (Auto) 0.1 X10^3/uL (0.0-0.1) 10/08/17 05:00 Absolute Nucleated RBC 0.1 /100WBC 10/08/17 05:00 Plt Morphology Comment Normal (NORMAL) 10/08/17 05:00 RBC Morphology Normal (NORMAL) 10/08/17 05:00 Hypochromasia Slight A 10/02/17 15:47 INR Target Range - 10/02/17 11:10 INR 1.12 (0.8-1.3) 10/02/17 11:10 APTT 27.5 SECONDS (22.9-36.5) 10/02/17 11:10 PTT Comment - 10/02/17 11:10 Sample Site Lba 10/03/17 09:30 ABG pH 7.250 (7.35-7.45) L 10/03/17 09:30 ABG pCO2 33.0 mmHg (35.0-45.0) L 10/03/17 09:30 ABG pO2 85.0 mmHg (80.0-100.0) 10/03/17 09:30 ABG HCO3 14.5 mmol/L (22-26) L* 10/03/17 09:30 ABG O2 Saturation 95.0 % (90-100) 10/03/17 09:30 ABG Base Excess -11.7 mmol/L (-2.0-2.0) L 10/03/17 09:30 Nathan Test Na 10/03/17 09:30 A-a Gradient 73.0 mmHg 10/03/17 09:30 FiO2 28.000 10/03/17 09:30 Blood Gas Comments Jona well cs 10/03/17 09:30 Sodium 148 mmol/L (136-145) H 10/08/17 05:00 Corrected Sodium 151 mmol/L (136-145) H 10/08/17 05:00 Potassium 3.2 mmol/L (3.5-5.1) L 10/08/17 05:00 Chloride 113 mmol/L (98-107) H 10/08/17 05:00 Carbon Dioxide 24.0 mmol/L (21-32) 10/08/17 05:00 BUN 40 mg/dL (7-18) H 10/08/17 05:00 Creatinine 2.07 mg/dL (0.55-1.02) H 10/08/17 05:00 Est GFR (MDRD) Af Amer 34 (>60) L 10/08/17 05:00 Est GFR (MDRD) Non-Af 28 (>60) L 10/08/17 05:00 Glucose 219 mg/dL (65-99) H 10/08/17 05:00 POC Glucose (mg/dL) 248 mg/dL (65-99) H 10/08/17 16:09 Lactic Acid 1.3 mmol/L (0.4-2.0) 10/02/17 17:00 Calcium 6.4 mg/dL (8.5-10.1) L 10/08/17 05:00 Corrected Calcium 7.4 mg/dL (8.5-10.1) L 10/08/17 05:00 Magnesium 2.1 mg/dL (1.7-2.9) 10/03/17 05:10 Total Bilirubin 0.50 mg/dL (0.2-1.0) 10/08/17 05:00 AST 11 Units/L (15-37) L 10/08/17 05:00 ALT 35 Units/L (12-78) 10/08/17 05:00 Alkaline Phosphatase 82 Units/L (46-116) 10/08/17 05:00 Creatine Kinase 4154 Units/L (26-192) H 10/03/17 05:10 CK-MB (CK-2) 15.7 ng/mL (0-4.0) H* 10/03/17 05:10 CK/CKMB % Calc 0.4 % (<4) 10/03/17 05:10 Troponin I < 0.02 ng/mL (0-1.5) 10/03/17 05:10 Total Protein 6.4 g/dL (6.4-8.2) 10/08/17 05:00 Albumin 2.7 g/dL (3.4-5.0) L 10/08/17 05:00 Globulin 3.7 g/dL (2.5-4.5) 10/08/17 05:00 Albumin/Globulin Ratio 0.7 Ratio (1.1-2.1) L 10/08/17 05:00 Specimen Type Catherized urine 10/02/17 15:30 Urine Color Yellow (YELLOW) 10/02/17 15:30 Urine Appearance Cloudy (CLEAR) 10/02/17 15:30 Urine pH 5.0 (5.0 - 8.0) 10/02/17 15:30 Ur Specific [place] 1.020 (1.000-1.030) 10/02/17 15:30 Urine Protein 2+ (NEGATIVE) 10/02/17 15:30 Urine Glucose (UA) 2+ (NEGATIVE) 10/02/17 15:30 Urine Ketones Negative (NEGATIVE) 10/02/17 15:30 Urine Occult Blood 3+ (NEGATIVE) 10/02/17 15:30 Urine Nitrite Negative (NEGATIVE) 10/02/17 15:30 Urine Bilirubin 1+ (NEGATIVE) 10/02/17 15:30 Urine Urobilinogen Normal (NORMAL) 10/02/17 15:30 Ur Leukocyte Esterase 3+ (NEGATIVE) 10/02/17 15:30 Urine RBC 10-20 /HPF (NONE SEEN) 10/02/17 15:30 Urine WBC Tntc /HPF (NONE SEEN) 10/02/17 15:30 Ur Squamous Epith Cells Rare /HPF (NEGATIVE) 10/02/17 15:30 Amorphous Sediment 1+ /HPF (NEGATIVE) 10/02/17 15:30 Urine Bacteria 2+ /HPF (NEGATIVE) 10/02/17 15:30 Hyaline Casts Rare /LPF (NEGATIVE) 10/02/17 15:30 Ur Culture Indicated? Yes/culture set up 10/02/17 15:30 Acetone, Semi-Quant Negative (NEGATIVE) 10/02/17 14:48 Blood Type A POSITIVE 10/03/17 08:30 Antibody Screen Negative 10/03/17 08:30 - Plan (1) Metabolic acidosis Status: Acute Plan: IV HYDRATION, PAIN AND NAUSEA CONTROL. I & OS, SKIN CARE/ASSESSMENT, PT. BS CONTROL, SSI, CONTINUOUS CARDIAC MONITORING. REPEAT AM LABS (2) Hyperglycemia Status: Acute (3) Hyperkalemia Status: Acute (4) CAD (coronary artery disease) Status: Chronic (5) Chronic kidney disease (CKD) Status: Chronic Qualifiers: Chronic kidney disease stage: stage 3 (moderate) Qualified Code(s): N18.3 - Chronic kidney disease, stage 3 (moderate) (6) Diabetes mellitus Status: Chronic (7) History of right below knee amputation Status: Chronic (8) Peripheral artery disease Status: Chronic (9) Left shoulder pain Status: Acute Plan: S/P FALL, PAIN CONTROL. MRI LEFT SHOUDLER (10) Abdominal distension Status: Acute Plan: CT ABD R/O ASCITES DUE TO INCREASED DISTENTION (11) Intractable nausea and vomiting Status: Acute Plan: REGLAN, NAUSEA CONTROL. CT ABD PELVIS W/O
--- NOTE | 2017-10-08 18:33 | CT ---
CT ABDOMEN AND PELVIS WITHOUT CONTRAST CLINICAL HISTORY: 37-year-old female with diffuse abdominal distention, nausea vomiting. History of p rior section, CABG, cholecystectomy and right lower extremity amputation. COMPARISON: CT abdomen and pelvis 06/03/2017. TECHNIQUE: Multiple contiguous computed tomographic axial images of the abdomen and pelvis were obtai hamilton without the use of oral or intravenous contrast. Images were reformatted in the coronal and sagit ronny planes. FINDINGS: Interval development of Small right effusion with associated compressive atelectasis. Heart is not e nlarged. No pericardial effusion. Unchanged atherosclerotic calcification of the coronary vessels. Stable hepatomegaly with diffuse hepatic steatosis without focal mass lesion or biliary ductal dilata tion. Interval development of small volume simple perihepatic ascites. Stable splenomegaly. Pancreas is moderately fatty replaced and unchanged. Status post cholecystectomy. Adrenal glands are unremarkable. Stable mixed density peripherally calcified cyst in the superior pole left kidney. Stable bilateral r enal atrophy with moderate perinephric stranding. There are no nephroureteral stones or perinephric f luid collections. There is no evidence of hydroureteronephrosis and the ureters run in an unobstructe d course to a well distended urinary bladder. The uterus is anteverted and normal in size. Unchanged left ovarian cyst. Multiple pelvic phlebolith s. Scattered fluid throughout the mesenteric with trace fluid bilateral paracolic gutters. Small volume free fluid within the pelvis. The appendix is normal in appearance. The bowel is without obstruction or inflammation and there is no free fluid or free air within the peritoneal cavity. There are no p athologically enlarged lymph nodes in the abdomen or pelvis. The arteriovascular structures are within normal limits for a study without contrast. Significant interval worsening of right body wall and left flank body wall anasarca. The osseous structures are intact without fracture or malalignment. IMPRESSION: 1. Development of small right effusion, scattered abdominal and pelvic ascites and significant worsen ing of body wall anasarca in a patient with chronic hepatomegaly and hepatic steatosis which may be i ndicative of liver failure. Correlate with serology. 2. Other chronic and stable findings as above. Reported By:
[2017-10-08] MEDS: SNACK - Diabetic Appropriate PO SCH (20:00)
[2017-10-08] MEDS: CELEXA PO SCH (20:07)
[2017-10-08] MEDS ORDERED: K-LYTE EFFERVESCENT PO PRN (20:44)
[2017-10-08] MEDS ORDERED: POTASSIUM CHLORIDE LIQ 20 MEQ UDC PO PRN (20:44)
[2017-10-08] MEDS ORDERED: POTASSIUM CHL 40 MEQ/NS 0.45% 500 ML IV PRN (20:44)
[2017-10-08] MEDS ORDERED: POTASSIUM CHL 60 MEQ/NS 0.45% 500 ML IV PRN (20:44)
[2017-10-08] MEDS ORDERED: K-DUR TAB 20 MEQ PO ONE ×2 (22:30→22:38)
[2017-10-08] MEDS: MAGNESIUM SULFATE 1 GM/100 mL PREMIX 1 GM/100 ML BAG IV PRN ×2 (22:44→23:48)
[2017-10-09] MEDS: MAGNESIUM SULFATE 1 GM/100 mL PREMIX 1 GM/100 ML BAG IV PRN ×2 (00:53→02:41)
[2017-10-09] MEDS: NS 1/2 1000 ML IV 1,000 ML IV SCH ×2 (01:35→14:08)
[2017-10-09] MEDS: MORPHINE SULFATE INJ 2 MG INJ IVP PRN ×5 (01:35→23:20)
[2017-10-09] MEDS: REGLAN TAB 10 MG PO SCH ×5 (05:38→19:34)
[2017-10-09] MEDS: CARAFATE PO SCH ×5 (05:38→19:35)
[2017-10-09] MEDS: PHENERGAN INJ 25 MG IV PRN ×2 (05:39→22:55)
[2017-10-09] MEDS: SODIUM BICARBONATE TAB 650MG PO SCH ×3 (06:11→16:33)
[2017-10-09 06:50] LABS: ALBUMIN 2.6 g/dL (3.4-5.0); CALCIUM 6.6 mg/dL (8.5-10.1); CARBON DIOXIDE 25.1 mmol/L (21-32); COR CA(FOR HYPOALB) 7.7 mg/dL (8.5-10.1); CREATININE 1.76 mg/dL (0.55-1.02); TOTAL PROTEIN 6.3 g/dL (6.4-8.2)
[2017-10-09 07:07] LABS: BASOPHILS # (AUTO) 0.1 X10^3/uL (0.0-0.1); BASOPHILS % (AUTO) 1.2 % (0.2-1.0); EOSINOPHILS # (AUTO) 0.2 x10^3/uL (0.0-0.2); EOSINOPHILS % (AUTO) 3.5 % (0.9-2.9); HEMATOCRIT 22.8 % (36.0-47.0); LYMPHOCYTES % (AUTO) 22.4 % (21.0-51.0); MEAN CORPUSCULAR HGB CONC 33.6 g/dL (33.0-35.0); MEAN CORPUSCULAR VOLUME 95.3 fL (80.0-100.0); MEAN PLATELET VOLUME 9.7 fL (7.4-11.0); MONOCYTES # (AUTO) 0.3 x10^3/uL (0.3-0.8); MONOCYTES % (AUTO) 6.8 % (0.0-13.0); NEUTROPHILS # (AUTO) 3.1 x10^3/uL (2.2-4.8); NEUTROPHILS % (AUTO) 66.1 % (42.0-75.0); PLATELET COUNT 131 X10^3/uL (150.0-450.0); WHITE BLOOD COUNT 4.6 X10^3/uL (3.6-10.0)
[2017-10-09 07:11] LABS: HEMOGLOBIN 7.7 g/dL (12.0-16.0)
[2017-10-09] MEDS ORDERED: LASIX IVP ONE (08:12)
[2017-10-09] MEDS: LASIX PO SCH (08:32)
[2017-10-09] MEDS: LIPITOR TAB 20 MG PO SCH (09:12)
[2017-10-09] MEDS: PROTONIX TAB 40 MG PO SCH (09:12)
[2017-10-09] MEDS: COZAAR PO SCH (09:12)
[2017-10-09] MEDS: PLAVIX PO SCH (09:13)
[2017-10-09] MEDS: LOPRESSOR TAB 25 MG PO SCH ×3 (09:13→19:35)
[2017-10-09] MEDS: NS IV SCH (09:14)
[2017-10-09] MEDS: SPIKE MINIBAG IV SCH (09:14)
[2017-10-09] MEDS: MAXIPIME IV SCH (09:14)
[2017-10-09] MEDS: NYSTATIN POWDER TOP SCH ×3 (09:16→21:43)
--- NOTE | 2017-10-09 11:11 | DR.CONSULT ---
Consult - Consultation for Day of: Date: 10/09/17 - Chief Complaint Chief Complaint: left shoulder pain - Allergies Allergies/Adverse Reactions: Allergies Allergy/AdvReac Type Severity Reaction Status Date / Time No Known Drug Allergies Allergy Verified 10/02/17 10:39 - History of Present Illness History of Present Illness: h/o fall left shoulder and pain left shoulder. MRI - left shoulder bursisits. - Past Medical History Past Medical History: Coronary Artery Disease, Depression, Diabetes, Migraines, GERD, Headaches, Hypertension, Renal Disease - Past Surgical History Surgical History: , CABG/Valve Surgery, Cholecystectomy, Ortho Surgery - Family History Family Medical History: Diabetes Mellitus, Cancer, [place], Sudden Cardiac , Hypertension - Social History Does patient currently use any type of tobacco product: No Have you used tobacco products in the last 12 months: No Type of Tobacco Use: None Does any household member use tobacco: No Alcohol Use: None Drug Use: None - Medications Home Medications: Citalopram 20 mg Tab [CELEXA 20 MG *] 1 tab PO HS 10/02/17 [History Confirmed ] Promethazine HCl [PHENERGAN TAB 25 MG *] 25 mg PO Q8H PRN 10/02/17 [History Confirmed 10/04/17] Sucralfate [Carafate] 1 tab PO ACHS 10/02/17 [History Confirmed 10/04/17] - Physical Exam Vital Signs: Temperature 98.5 F Pulse Rate [Left Brachial] 61 Pulse Rate 63 Respiratory Rate 13 Blood Pressure [Left Arm] 114/62 Blood Pressure [Right Arm] 109/81 Blood Pressure 90/66 O2 Sat by Pulse Oximetry 96 - Plan Plan: PT for left shoulder. she will need left shoulder cortisone injection, but her blood sugars are high right now. we will have her follow up in the office in a week after discharge for th e injection.
[2017-10-09] MEDS: HumuLIN R SUBCUT PRN ×2 (11:27→20:55)
[2017-10-09] MEDS ORDERED: DULCOLAX TAB EC 5 MG PO ONE (19:11)
[2017-10-09] MEDS ORDERED: DULCOLAX SUPPOSITORY 10 MG RECTAL ONE (19:11)
[2017-10-09] MEDS: ZOFRAN INJ 4 MG VIAL IVP PRN (19:33)
[2017-10-09] MEDS: CELEXA PO SCH ×2 (19:33→19:35)
[2017-10-09] MEDS: SNACK - Diabetic Appropriate PO SCH (21:42)
[2017-10-09] MEDS ORDERED: K-DUR TAB 20 MEQ PO ONE (22:26)
[2017-10-10] MEDS ORDERED: NS 1/2 1000 ML IV 1,000 ML IV ONE (00:25)
[2017-10-10] MEDS: NS 1/2 1000 ML IV 1,000 ML IV SCH ×3 (00:29→16:13)
[2017-10-10] MEDS: MORPHINE SULFATE INJ 2 MG INJ IVP PRN ×5 (03:59→21:35)
[2017-10-10] MEDS: CARAFATE PO SCH ×4 (05:48→20:18)
[2017-10-10] MEDS: REGLAN TAB 10 MG PO SCH ×4 (05:48→20:18)
[2017-10-10] MEDS: HumuLIN R SUBCUT PRN ×4 (05:50→20:17)
[2017-10-10] MEDS: SODIUM BICARBONATE TAB 650MG PO SCH ×3 (06:00→16:12)
[2017-10-10] MEDS: PLAVIX PO SCH (08:30)
[2017-10-10] MEDS: COZAAR PO SCH (08:30)
[2017-10-10] MEDS: PROTONIX TAB 40 MG PO SCH (08:31)
[2017-10-10] MEDS: LOPRESSOR TAB 25 MG PO SCH ×2 (08:31→20:18)
[2017-10-10] MEDS: LASIX PO SCH (08:31)
[2017-10-10] MEDS: LIPITOR TAB 20 MG PO SCH (08:31)
[2017-10-10] MEDS: COLACE CAP 100 MG PO PRN ×2 (08:31→20:18)
[2017-10-10] MEDS: NYSTATIN POWDER TOP SCH ×2 (08:32→21:35)
[2017-10-10] MEDS: SPIKE MINIBAG IV SCH (08:32)
[2017-10-10] MEDS: NS IV SCH (08:32)
[2017-10-10] MEDS: MAXIPIME IV SCH (08:32)
[2017-10-10] MEDS: ZOFRAN INJ 4 MG VIAL IVP PRN ×2 (09:11→17:14)
--- NOTE | 2017-10-10 12:35 | PCM.PROG ---
Progress Note - Progress Note for Day of Date: 10/10/17 - Subjective Subjective: IS BEING TREATMED FOR ACUTE RENAL FAILURE AND A URINARY TRACT INFECTION. TODAY, SHE IS ALERT AND ORIENTED, IMPROVING VOMITING SINCE ONE DAY AGO. KUB NORMAL FOR SBO. PT STARTED ON REGLAN AC & HS, CONTINUES WITH POOR PO INTAKE, DENIES VOMTING. PT CONTINUED IMPROVEMENT IN HER RENAL FUNCTION, PT CO NAUSEA. GASTRIC EMPTY STUDY TO BE SET UP ON OP BASIS AND EGD. ENCOURAGE PT AND POSSIBLE D/C HOME IN THE AM - Past Medical Family Social History Past Med/Fam/Surg Hx: No changes since H&P Allergies: Allergies No Known Drug Allergies Allergy (Verified 10/02/17 10:39) - Review of Systems ROS: No change since H&P - Vital Signs and I&O's Vital Signs: Temperature 98.2 F Pulse Rate [Left Brachial] 58 Pulse Rate 63 Respiratory Rate 17 Blood Pressure [Left Arm] 114/62 Blood Pressure [Right Arm] 160/73 Blood Pressure 90/66 O2 Sat by Pulse Oximetry 94 Intake and Output: Intake & Output 10/08/17 10/09/17 10/10/17 10/11/17 11:59 11:59 11:59 11:59 Intake Total 2777 2954 2376 Output Total 900 1200 3300 Balance 1877 1754 -924 - Physical Exam Oriented: Normal Eyes: Other (BLINDNESS) Ear: Normal Nose: Normal Throat: Normal Respiratory: Diminished Cardiovascular: Tachycardia : Normal Auscultation: Bowel Sounds: Decreased Tenderness: RUQ, LUQ, Epigastric Skin: Normal Musculoskeletal: Left, Shoulder, Back:Lumbar, Deformity (R BKA), Motor Deficit, Sensory Deficit Psychiatric: Anxiety, Depression Mood Description: Depressed Speech Pattern: Clear, Appropriate - Laboratory and Diagnostics Result Diagrams: 10/09/17 06:56 10/09/17 06:56 Labs: 10/02/17 14:48 Blood Blood Culture - Final 10/02/17 14:43 Blood Blood Culture - Final 10/02/17 15:30 Urine,Clean Catch Urine Culture - Final Laboratory WBC 4.6 X10^3/uL (3.6-10.0) 10/09/17 06:56 RBC 2.40 X10^6/uL (3.5-5.4) L 10/09/17 06:56 Hgb 7.7 g/dL (12.0-16.0) L 10/09/17 06:56 Hct 22.8 % (36.0-47.0) L 10/09/17 06:56 MCV 95.3 fL (80.0-100.0) 10/09/17 06:56 MCH 32.0 pg (27.0-34.0) 10/09/17 06:56 MCHC 33.6 g/dL (33.0-35.0) 10/09/17 06:56 RDW 15.0 % (11.6-16.5) 10/09/17 06:56 Plt Count 131 X10^3/uL (150.0-450.0) L 10/09/17 06:56 Plt Count Comment Adequate (ADEQUATE) 10/08/17 05:00 MPV 9.7 fL (7.4-11.0) 10/09/17 06:56 Neut % (Auto) 66.1 % (42.0-75.0) 10/09/17 06:56 Lymph % (Auto) 22.4 % (21.0-51.0) 10/09/17 06:56 [place] % (Auto) 6.8 % (0.0-13.0) 10/09/17 06:56 Eos % (Auto) 3.5 % (0.9-2.9) H 10/09/17 06:56 Baso % (Auto) 1.2 % (0.2-1.0) H 10/09/17 06:56 Neut # (Auto) 3.1 x10^3/uL (2.2-4.8) 10/09/17 06:56 Lymph # (Auto) 1.0 X10^3/uL (1.3-2.9) L 10/09/17 06:56 [place] # (Auto) 0.3 x10^3/uL (0.3-0.8) 10/09/17 06:56 Eos # (Auto) 0.2 x10^3/uL (0.0-0.2) 10/09/17 06:56 Baso # (Auto) 0.1 X10^3/uL (0.0-0.1) 10/09/17 06:56 Absolute Nucleated RBC 0.1 /100WBC 10/09/17 06:56 Plt Morphology Comment Normal (NORMAL) 10/08/17 05:00 RBC Morphology Normal (NORMAL) 10/08/17 05:00 Hypochromasia Slight A 10/02/17 15:47 INR Target Range - 10/02/17 11:10 INR 1.12 (0.8-1.3) 10/02/17 11:10 APTT 27.5 SECONDS (22.9-36.5) 10/02/17 11:10 PTT Comment - 10/02/17 11:10 Sample Site Lba 10/03/17 09:30 ABG pH 7.250 (7.35-7.45) L 10/03/17 09:30 ABG pCO2 33.0 mmHg (35.0-45.0) L 10/03/17 09:30 ABG pO2 85.0 mmHg (80.0-100.0) 10/03/17 09:30 ABG HCO3 14.5 mmol/L (22-26) L* 10/03/17 09:30 ABG O2 Saturation 95.0 % (90-100) 10/03/17 09:30 ABG Base Excess -11.7 mmol/L (-2.0-2.0) L 10/03/17 09:30 Nathan Test Na 10/03/17 09:30 A-a Gradient 73.0 mmHg 10/03/17 09:30 FiO2 28.000 10/03/17 09:30 Blood Gas Comments Jona well cs 10/03/17 09:30 Sodium 146 mmol/L (136-145) H 10/09/17 06:56 Corrected Sodium 149 mmol/L (136-145) H 10/09/17 06:56 Potassium 4.1 mmol/L (3.5-5.1) 10/09/17 06:56 Chloride 111 mmol/L (98-107) H 10/09/17 06:56 Carbon Dioxide 25.1 mmol/L (21-32) 10/09/17 06:56 BUN 32 mg/dL (7-18) H 10/09/17 06:56 Creatinine 1.76 mg/dL (0.55-1.02) H 10/09/17 06:56 Est GFR (MDRD) Af Amer 42 (>60) L 10/09/17 06:56 Est GFR (MDRD) Non-Af 34 (>60) L 10/09/17 06:56 Glucose 218 mg/dL (65-99) H 10/09/17 06:56 POC Glucose (mg/dL) 173 mg/dL (65-99) H 10/10/17 11:00 Lactic Acid 1.3 mmol/L (0.4-2.0) 10/02/17 17:00 Calcium 6.6 mg/dL (8.5-10.1) L 10/09/17 06:56 Corrected Calcium 7.7 mg/dL (8.5-10.1) L 10/09/17 06:56 Magnesium 2.4 mg/dL (1.7-2.9) 10/09/17 06:56 Total Bilirubin 0.50 mg/dL (0.2-1.0) 10/09/17 06:56 AST 25 Units/L (15-37) 10/09/17 06:56 ALT 39 Units/L (12-78) 10/09/17 06:56 Alkaline Phosphatase 79 Units/L (46-116) 10/09/17 06:56 Creatine Kinase 4154 Units/L (26-192) H 10/03/17 05:10 CK-MB (CK-2) 15.7 ng/mL (0-4.0) H* 10/03/17 05:10 CK/CKMB % Calc 0.4 % (<4) 10/03/17 05:10 Troponin I < 0.02 ng/mL (0-1.5) 10/03/17 05:10 Total Protein 6.3 g/dL (6.4-8.2) L 10/09/17 06:56 Albumin 2.6 g/dL (3.4-5.0) L 10/09/17 06:56 Globulin 3.7 g/dL (2.5-4.5) 10/09/17 06:56 Albumin/Globulin Ratio 0.7 Ratio (1.1-2.1) L 10/09/17 06:56 Specimen Type Catherized urine 10/02/17 15:30 Urine Color Yellow (YELLOW) 10/02/17 15:30 Urine Appearance Cloudy (CLEAR) 10/02/17 15:30 Urine pH 5.0 (5.0 - 8.0) 10/02/17 15:30 Ur Specific [place] 1.020 (1.000-1.030) 10/02/17 15:30 Urine Protein 2+ (NEGATIVE) 10/02/17 15:30 Urine Glucose (UA) 2+ (NEGATIVE) 10/02/17 15:30 Urine Ketones Negative (NEGATIVE) 10/02/17 15:30 Urine Occult Blood 3+ (NEGATIVE) 10/02/17 15:30 Urine Nitrite Negative (NEGATIVE) 10/02/17 15:30 Urine Bilirubin 1+ (NEGATIVE) 10/02/17 15:30 Urine Urobilinogen Normal (NORMAL) 10/02/17 15:30 Ur Leukocyte Esterase 3+ (NEGATIVE) 10/02/17 15:30 Urine RBC 10-20 /HPF (NONE SEEN) 10/02/17 15:30 Urine WBC Tntc /HPF (NONE SEEN) 10/02/17 15:30 Ur Squamous Epith Cells Rare /HPF (NEGATIVE) 10/02/17 15:30 Amorphous Sediment 1+ /HPF (NEGATIVE) 10/02/17 15:30 Urine Bacteria 2+ /HPF (NEGATIVE) 10/02/17 15:30 Hyaline Casts Rare /LPF (NEGATIVE) 10/02/17 15:30 Ur Culture Indicated? Yes/culture set up 10/02/17 15:30 Acetone, Semi-Quant Negative (NEGATIVE) 10/02/17 14:48 Blood Type A POSITIVE 10/03/17 08:30 Antibody Screen Negative 10/03/17 08:30 - Plan (1) Metabolic acidosis Status: Acute Plan: IV HYDRATION, PAIN AND NAUSEA CONTROL. I & OS, SKIN CARE/ASSESSMENT, PT. BS CONTROL, SSI, CONTINUOUS CARDIAC MONITORING. REPEAT AM LABS (2) Hyperglycemia Status: Acute (3) Hyperkalemia Status: Acute (4) CAD (coronary artery disease) Status: Chronic (5) Chronic kidney disease (CKD) Status: Chronic Qualifiers: Chronic kidney disease stage: stage 3 (moderate) Qualified Code(s): N18.3 - Chronic kidney disease, stage 3 (moderate) Plan: BUN CREAT GRADUALLY IMPROVING WITH HYDRATION (6) Diabetes mellitus Status: Chronic (7) History of right below knee amputation Status: Chronic (8) Peripheral artery disease Status: Chronic (9) Left shoulder pain Status: Acute Plan: S/P FALL, PAIN CONTROL. MRI LEFT SHOUDLER (10) Abdominal distension Status: Acute Plan: CT ABD R/O ASCITES DUE TO INCREASED DISTENTION (11) Intractable nausea and vomiting Status: Acute Plan: REGLAN, NAUSEA CONTROL. CT ABD PELVIS COMPLETED. SEE EMR FOR REPORT. WILL SET UP EGD AND GASTRIC EMPTY STUDY ON OP BASIS, PT HAS TO HOLD REGLAN 14 DAYS PRIOR GES.
[2017-10-10] MEDS: CELEXA PO SCH (20:18)
[2017-10-10] MEDS: SNACK - Diabetic Appropriate PO SCH (21:34)
[2017-10-10] MEDS: PHENERGAN INJ 25 MG IV PRN (21:36)
[2017-10-11] MEDS: MORPHINE SULFATE INJ 2 MG INJ IVP PRN ×5 (01:42→20:35)
[2017-10-11 05:20] LABS: BASOPHILS # (AUTO) 0.4 X10^3/uL (0.0-0.1); BASOPHILS % (AUTO) 7.5 % (0.2-1.0); EOSINOPHILS # (AUTO) 0.2 x10^3/uL (0.0-0.2); EOSINOPHILS % (AUTO) 3.7 % (0.9-2.9); HEMATOCRIT 25.5 % (36.0-47.0); HEMOGLOBIN 8.6 g/dL (12.0-16.0); LYMPHOCYTES # (AUTO) 0.9 X10^3/uL (1.3-2.9); LYMPHOCYTES % (AUTO) 18.8 % (21.0-51.0); MEAN CORPUSCULAR HEMOGLOBIN 31.5 pg (27.0-34.0); MEAN CORPUSCULAR HGB CONC 33.5 g/dL (33.0-35.0); MEAN CORPUSCULAR VOLUME 93.9 fL (80.0-100.0); MEAN PLATELET VOLUME 10.1 fL (7.4-11.0); MONOCYTES # (AUTO) 0.3 x10^3/uL (0.3-0.8); MONOCYTES % (AUTO) 6.4 % (0.0-13.0); NEUTROPHILS # (AUTO) 3.1 x10^3/uL (2.2-4.8); NEUTROPHILS % (AUTO) 63.6 % (42.0-75.0); PLATELET COUNT 151 X10^3/uL (150.0-450.0); RED BLOOD COUNT 2.72 X10^6/uL (3.5-5.4); RED CELL DISTRIBUTION WIDTH 14.4 % (11.6-16.5); WHITE BLOOD COUNT 4.9 X10^3/uL (3.6-10.0)
[2017-10-11 05:29] LABS: ALBUMIN 2.8 g/dL (3.4-5.0); CARBON DIOXIDE 27.3 mmol/L (21-32); CREATININE 1.55 mg/dL (0.55-1.02); TOTAL PROTEIN 6.6 g/dL (6.4-8.2)
[2017-10-11] MEDS: PHENERGAN INJ 25 MG IV PRN ×2 (05:53→11:53)
[2017-10-11 07:11] LABS: PLATELET MORPHOLOGY COMMENT NORMAL (NORMAL)
[2017-10-11] MEDS: NS 1/2 1000 ML IV 1,000 ML IV SCH ×3 (07:46→18:20)
[2017-10-11] MEDS: ZOFRAN INJ 4 MG VIAL IVP PRN (09:45)
[2017-10-11] MEDS: PROTONIX TAB 40 MG PO SCH (10:00)
[2017-10-11] MEDS: LIPITOR TAB 20 MG PO SCH (10:00)
[2017-10-11] MEDS: COZAAR PO SCH (10:00)
[2017-10-11] MEDS: PLAVIX PO SCH (10:00)
[2017-10-11] MEDS ORDERED: NS 1/2 1000 ML IV 1,000 ML IV ONE (10:00)
[2017-10-11] MEDS: LASIX PO SCH (10:00)
[2017-10-11] MEDS: SPIKE MINIBAG IV SCH (10:00)
[2017-10-11] MEDS: MAXIPIME IV SCH (10:00)
[2017-10-11] MEDS: NYSTATIN POWDER TOP SCH ×2 (10:00→20:38)
[2017-10-11] MEDS: LOPRESSOR TAB 25 MG PO SCH (10:00)
[2017-10-11] MEDS: NS IV SCH (10:00)
[2017-10-11] MEDS: SODIUM BICARBONATE TAB 650MG PO SCH ×2 (12:12→16:29)
[2017-10-11] MEDS: REGLAN TAB 10 MG PO SCH ×2 (12:12→16:29)
[2017-10-11] MEDS: CARAFATE PO SCH ×2 (12:12→16:28)
--- NOTE | 2017-10-11 15:10 | RAD ---
Abdomen, two views Indication: NG tube placement Comparison: 10/07/2017 Findings: Evaluation is limited due to patient body habitus. Given these limitations, tip of the NG t ube projects over the stomach. The side-port is not definitively identified, but is likely at the lev el of the distal esophagus or GE junction. There is relative paucity of bowel gas without convincing evidence of obstruction. Visualized lung bases are grossly clear. Impression: NG tube terminates over the stomach with side-port not definitively visualized. If the tube is for fe eding purposes, recommend repeat KUB to confirm appropriate positioning. Reported By:
[2017-10-11] MEDS: K-RIDER 10 MEQ/NS 100 ML 10 MEQ/100 ML BAG IV PRN ×2 (16:07→17:45)
[2017-10-11] MEDS: HumuLIN R SUBCUT PRN ×2 (16:37→20:32)
[2017-10-11] MEDS ORDERED: LOPRESSOR INJ 5 MG AMP IVP PRN (19:29)
[2017-10-11] MEDS ORDERED: ZOFRAN INJ 4 MG VIAL IVP PRN (19:35)
[2017-10-11] MEDS ORDERED: PHENERGAN INJ 25 MG IV PRN (19:37)
[2017-10-11 19:48] LABS: BASOPHILS # (AUTO) 0.1 X10^3/uL (0.0-0.1); BASOPHILS % (AUTO) 0.8 % (0.2-1.0); EOSINOPHILS % (AUTO) 0.1 % (0.9-2.9); HEMATOCRIT 28.8 % (36.0-47.0); HEMOGLOBIN 9.3 g/dL (12.0-16.0); LYMPHOCYTES # (AUTO) 0.6 X10^3/uL (1.3-2.9); LYMPHOCYTES % (AUTO) 9.2 % (21.0-51.0); MEAN CORPUSCULAR HEMOGLOBIN 30.7 pg (27.0-34.0); MEAN CORPUSCULAR HGB CONC 32.3 g/dL (33.0-35.0); MEAN PLATELET VOLUME 9.6 fL (7.4-11.0); MONOCYTES # (AUTO) 0.2 x10^3/uL (0.3-0.8); MONOCYTES % (AUTO) 3.5 % (0.0-13.0); NEUTROPHILS # (AUTO) 5.7 x10^3/uL (2.2-4.8); NEUTROPHILS % (AUTO) 86.4 % (42.0-75.0); PLATELET COUNT 203 X10^3/uL (150.0-450.0); RED BLOOD COUNT 3.03 X10^6/uL (3.5-5.4); RED CELL DISTRIBUTION WIDTH 14.6 % (11.6-16.5); WHITE BLOOD COUNT 6.6 X10^3/uL (3.6-10.0)
[2017-10-11 19:55] LABS: SERUM ACETONE SMALL (NEGATIVE)
[2017-10-11 19:59] LABS: ALANINE AMINOTRANSFERASE 41 Units/L (12-78); ALBUMIN 3.1 g/dL (3.4-5.0); ALKALINE PHOSPHATASE 111 Units/L (46-116); AMYLASE 15 Units/L (25-115); ASPARTATE AMINO TRANSFERASE 13 Units/L (15-37); BLOOD UREA NITROGEN 25 mg/dL (7-18); CALCIUM 7.2 mg/dL (8.5-10.1); CARBON DIOXIDE 27.6 mmol/L (21-32); CHLORIDE 101 mmol/L (98-107); COR CA(FOR HYPOALB) 7.9 mg/dL (8.5-10.1); COR NA(FOR HYPERGLY) 145 mmol/L (136-145); CREATININE 1.73 mg/dL (0.55-1.02); LIPASE 103 Units/L (73-393); MAGNESIUM 1.5 mg/dL (1.7-2.9); SODIUM 140 mmol/L (136-145); TOTAL PROTEIN 7.3 g/dL (6.4-8.2); eGFR BLACK RACES 42 (>60); eGFR NON BLACK RACES 35 (>60)
[2017-10-11] MEDS: MAGNESIUM SULFATE 1 GM/100 mL PREMIX 1 GM/100 ML BAG IV PRN ×2 (20:33→21:30)
[2017-10-11] MEDS: REGLAN INJ 10 MG VIAL IVP SCH (20:35)
[2017-10-11] MEDS: HALDOL INJ IVP SCH (20:36)
[2017-10-11] MEDS: LOPRESSOR INJ 5 MG AMP IVP SCH (20:37)
[2017-10-11] MEDS: PROTONIX INJ 40 MG VIAL IVP SCH (20:38)
[2017-10-12] MEDS: MORPHINE SULFATE INJ 2 MG INJ IVP PRN ×5 (02:58→20:45)
[2017-10-12] MEDS: HALDOL INJ IVP SCH ×3 (02:59→14:21)
[2017-10-12] MEDS: REGLAN INJ 10 MG VIAL IVP SCH ×4 (02:59→20:34)
[2017-10-12] MEDS: LOPRESSOR INJ 5 MG AMP IVP SCH ×3 (04:36→20:33)
[2017-10-12 06:56] LABS: BASOPHILS # (AUTO) 0.1 X10^3/uL (0.0-0.1); BASOPHILS % (AUTO) 1.4 % (0.2-1.0); EOSINOPHILS # (AUTO) 0.1 x10^3/uL (0.0-0.2); EOSINOPHILS % (AUTO) 1.5 % (0.9-2.9); HEMATOCRIT 23.7 % (36.0-47.0); LYMPHOCYTES # (AUTO) 1.4 X10^3/uL (1.3-2.9); MEAN CORPUSCULAR HEMOGLOBIN 31.4 pg (27.0-34.0); MEAN CORPUSCULAR HGB CONC 33.9 g/dL (33.0-35.0); MEAN CORPUSCULAR VOLUME 92.6 fL (80.0-100.0); MEAN PLATELET VOLUME 9.8 fL (7.4-11.0); MONOCYTES # (AUTO) 0.4 x10^3/uL (0.3-0.8); MONOCYTES % (AUTO) 5.8 % (0.0-13.0); NEUTROPHILS # (AUTO) 4.5 x10^3/uL (2.2-4.8); NEUTROPHILS % (AUTO) 69.3 % (42.0-75.0); PLATELET COUNT 187 X10^3/uL (150.0-450.0); RED BLOOD COUNT 2.56 X10^6/uL (3.5-5.4); RED CELL DISTRIBUTION WIDTH 14.6 % (11.6-16.5); WHITE BLOOD COUNT 6.4 X10^3/uL (3.6-10.0)
[2017-10-12 07:26] LABS: ALBUMIN 2.6 g/dL (3.4-5.0); CALCIUM 7.1 mg/dL (8.5-10.1); CARBON DIOXIDE 28.4 mmol/L (21-32); COR CA(FOR HYPOALB) 8.2 mg/dL (8.5-10.1); CREATININE 1.6 mg/dL (0.55-1.02)
[2017-10-12] MEDS ORDERED: MAXIPIME VIAL 1 GM ONE (09:10)
[2017-10-12] MEDS ORDERED: NS 100 ML IV 100 ML IV ONE (09:11)
[2017-10-12] MEDS: MAXIPIME IV SCH (09:35)
[2017-10-12] MEDS: PROTONIX INJ 40 MG VIAL IVP SCH ×2 (09:35→20:33)
[2017-10-12] MEDS: NS IV SCH (09:35)
[2017-10-12] MEDS: SPIKE MINIBAG IV SCH (09:35)
[2017-10-12] MEDS: NS 1/2 1000 ML IV 1,000 ML IV SCH ×2 (09:38→21:07)
[2017-10-12] MEDS: NYSTATIN POWDER TOP SCH (09:48)
[2017-10-12] MEDS: PLAVIX PO SCH (14:22)
[2017-10-12 15:34] VITALS: BMI 41.7
[2017-10-13] MEDS ORDERED: NS 1/2 1000 ML IV 1,000 ML IV ONE (00:40)
[2017-10-13] MEDS: REGLAN INJ 10 MG VIAL IVP SCH ×4 (01:14→20:25)
[2017-10-13] MEDS: MORPHINE SULFATE INJ 2 MG INJ IVP PRN ×5 (01:14→19:05)
[2017-10-13] MEDS: LOPRESSOR INJ 5 MG AMP IVP SCH ×3 (05:13→20:25)
[2017-10-13] MEDS: NS 1/2 1000 ML IV 1,000 ML IV SCH ×3 (05:19→23:23)
[2017-10-13 06:28] LABS: BASOPHILS # (AUTO) 0.1 X10^3/uL (0.0-0.1); EOSINOPHILS # (AUTO) 0.2 x10^3/uL (0.0-0.2); EOSINOPHILS % (AUTO) 4.6 % (0.9-2.9); HEMATOCRIT 24.6 % (36.0-47.0); HEMOGLOBIN 8.3 g/dL (12.0-16.0); LYMPHOCYTES # (AUTO) 1.4 X10^3/uL (1.3-2.9); LYMPHOCYTES % (AUTO) 26.2 % (21.0-51.0); MEAN CORPUSCULAR HEMOGLOBIN 31.5 pg (27.0-34.0); MEAN CORPUSCULAR HGB CONC 33.6 g/dL (33.0-35.0); MEAN CORPUSCULAR VOLUME 93.6 fL (80.0-100.0); MEAN PLATELET VOLUME 9.4 fL (7.4-11.0); MONOCYTES # (AUTO) 0.3 x10^3/uL (0.3-0.8); NEUTROPHILS # (AUTO) 3.3 x10^3/uL (2.2-4.8); NEUTROPHILS % (AUTO) 61.2 % (42.0-75.0); PLATELET COUNT 192 X10^3/uL (150.0-450.0); RED BLOOD COUNT 2.63 X10^6/uL (3.5-5.4); RED CELL DISTRIBUTION WIDTH 14.6 % (11.6-16.5); WHITE BLOOD COUNT 5.4 X10^3/uL (3.6-10.0)
[2017-10-13 06:39] LABS: ALBUMIN 2.8 g/dL (3.4-5.0); CALCIUM 7.5 mg/dL (8.5-10.1); CARBON DIOXIDE 29.1 mmol/L (21-32); COR CA(FOR HYPOALB) 8.5 mg/dL (8.5-10.1); CREATININE 1.4 mg/dL (0.55-1.02); TOTAL PROTEIN 6.4 g/dL (6.4-8.2)
--- NOTE | 2017-10-13 08:11 | RAD ---
Examination: KUB History: Renal failure, nausea and vomiting Comparison reference 10/07/2017 Findings: There is slight gaseous distention of the left colon. The appearance does not suggest dista l obstruction. No mass formation or pathologic calcification is noted. Surgical clips right upper abd omen. Impression: No acute or significant abdominal findings. Reported By:
[2017-10-13] MEDS ORDERED: MAXIPIME VIAL 1 GM ONE (08:31)
[2017-10-13] MEDS ORDERED: NS 100 ML IV 100 ML IV ONE (08:32)
[2017-10-13] MEDS: MAXIPIME IV SCH (08:50)
[2017-10-13] MEDS: NS IV SCH (08:50)
[2017-10-13] MEDS: SPIKE MINIBAG IV SCH (08:50)
[2017-10-13] MEDS: PLAVIX PO SCH (08:51)
[2017-10-13] MEDS: PROTONIX INJ 40 MG VIAL IVP SCH ×2 (08:51→20:26)
[2017-10-13] MEDS: K-RIDER 10 MEQ/NS 100 ML 10 MEQ/100 ML BAG IV PRN ×2 (21:57→23:00)
[2017-10-14] MEDS: MORPHINE SULFATE INJ 2 MG INJ IVP PRN ×6 (00:05→21:01)
[2017-10-14] MEDS: REGLAN INJ 10 MG VIAL IVP SCH ×4 (02:02→21:01)
[2017-10-14] MEDS: LOPRESSOR INJ 5 MG AMP IVP SCH ×3 (04:14→21:00)
[2017-10-14 06:18] LABS: BASOPHILS # (AUTO) 0.1 X10^3/uL (0.0-0.1); BASOPHILS % (AUTO) 1.7 % (0.2-1.0); EOSINOPHILS # (AUTO) 0.2 x10^3/uL (0.0-0.2); EOSINOPHILS % (AUTO) 4.2 % (0.9-2.9); HEMATOCRIT 25.8 % (36.0-47.0); HEMOGLOBIN 8.8 g/dL (12.0-16.0); LYMPHOCYTES # (AUTO) 1.3 X10^3/uL (1.3-2.9); LYMPHOCYTES % (AUTO) 28.8 % (21.0-51.0); MEAN CORPUSCULAR HEMOGLOBIN 31.4 pg (27.0-34.0); MEAN CORPUSCULAR VOLUME 92.3 fL (80.0-100.0); MEAN PLATELET VOLUME 9.3 fL (7.4-11.0); MONOCYTES # (AUTO) 0.3 x10^3/uL (0.3-0.8); MONOCYTES % (AUTO) 7.3 % (0.0-13.0); NEUTROPHILS # (AUTO) 2.6 x10^3/uL (2.2-4.8); PLATELET COUNT 170 X10^3/uL (150.0-450.0); RED BLOOD COUNT 2.79 X10^6/uL (3.5-5.4); RED CELL DISTRIBUTION WIDTH 13.9 % (11.6-16.5); WHITE BLOOD COUNT 4.4 X10^3/uL (3.6-10.0)
[2017-10-14 06:28] LABS: ALANINE AMINOTRANSFERASE 24 Units/L (12-78); ALBUMIN 2.8 g/dL (3.4-5.0); ALKALINE PHOSPHATASE 75 Units/L (46-116); ASPARTATE AMINO TRANSFERASE 13 Units/L (15-37); BLOOD UREA NITROGEN 16 mg/dL (7-18); CALCIUM 7.9 mg/dL (8.5-10.1); CARBON DIOXIDE 26.2 mmol/L (21-32); CHLORIDE 107 mmol/L (98-107); COR CA(FOR HYPOALB) 8.9 mg/dL (8.5-10.1); CREATININE 1.27 mg/dL (0.55-1.02); SODIUM 141 mmol/L (136-145); eGFR BLACK RACES > 60 (>60); eGFR NON BLACK RACES 50 (>60)
[2017-10-14] MEDS: APRESOLINE INJ 20 MG VIAL IVP PRN ×3 (07:35→17:07)
[2017-10-14] MEDS ORDERED: NS 1/2 1000 ML IV 1,000 ML IV ONE (08:13)
[2017-10-14] MEDS: PLAVIX PO SCH (08:21)
[2017-10-14] MEDS: PROTONIX INJ 40 MG VIAL IVP SCH ×2 (08:22→21:00)
[2017-10-14] MEDS: SPIKE MINIBAG IV SCH ×2 (08:22→21:00)
[2017-10-14] MEDS: NS IV SCH ×2 (08:22→21:00)
[2017-10-14] MEDS: MAXIPIME IV SCH ×2 (08:22→21:00)
[2017-10-14] MEDS: NS 1/2 1000 ML IV 1,000 ML IV SCH ×2 (08:22→11:11)
[2017-10-14] MEDS: K-RIDER 10 MEQ/NS 100 ML 10 MEQ/100 ML BAG IV PRN ×2 (09:22→10:25)
[2017-10-14] MEDS: MAGNESIUM SULFATE 1 GM/100 mL PREMIX 1 GM/100 ML BAG IV PRN ×2 (11:28→12:34)
[2017-10-14] MEDS: HumuLIN R SUBCUT PRN (16:11)
[2017-10-14] MEDS ORDERED: SNACK - Diabetic Appropriate PO SCH (22:15)
[2017-10-15] MEDS: MORPHINE SULFATE INJ 2 MG INJ IVP PRN ×3 (01:19→09:40)
[2017-10-15] MEDS: REGLAN INJ 10 MG VIAL IVP SCH ×2 (01:19→08:26)
[2017-10-15] MEDS: NS 1/2 1000 ML IV 1,000 ML IV SCH (01:19)
[2017-10-15] MEDS: LOPRESSOR INJ 5 MG AMP IVP SCH (05:04)
[2017-10-15 06:27] LABS: BASOPHILS # (AUTO) 0.1 X10^3/uL (0.0-0.1); BASOPHILS % (AUTO) 1.8 % (0.2-1.0); EOSINOPHILS # (AUTO) 0.2 x10^3/uL (0.0-0.2); HEMATOCRIT 24.8 % (36.0-47.0); HEMOGLOBIN 8.5 g/dL (12.0-16.0); LYMPHOCYTES # (AUTO) 1.1 X10^3/uL (1.3-2.9); LYMPHOCYTES % (AUTO) 21.7 % (21.0-51.0); MEAN CORPUSCULAR HEMOGLOBIN 31.6 pg (27.0-34.0); MEAN CORPUSCULAR HGB CONC 34.2 g/dL (33.0-35.0); MEAN CORPUSCULAR VOLUME 92.3 fL (80.0-100.0); MEAN PLATELET VOLUME 9.5 fL (7.4-11.0); MONOCYTES # (AUTO) 0.3 x10^3/uL (0.3-0.8); MONOCYTES % (AUTO) 6.7 % (0.0-13.0); NEUTROPHILS # (AUTO) 3.4 x10^3/uL (2.2-4.8); NEUTROPHILS % (AUTO) 65.8 % (42.0-75.0); PLATELET COUNT 212 X10^3/uL (150.0-450.0); RED BLOOD COUNT 2.68 X10^6/uL (3.5-5.4); WHITE BLOOD COUNT 5.2 X10^3/uL (3.6-10.0)
[2017-10-15 06:50] LABS: ALBUMIN 2.8 g/dL (3.4-5.0); CALCIUM 7.9 mg/dL (8.5-10.1); CARBON DIOXIDE 25.8 mmol/L (21-32); COR CA(FOR HYPOALB) 8.9 mg/dL (8.5-10.1); CREATININE 1.43 mg/dL (0.55-1.02); MAGNESIUM 2.1 mg/dL (1.7-2.9); TOTAL PROTEIN 6.2 g/dL (6.4-8.2)
[2017-10-15] MEDS: PLAVIX PO SCH (08:25)
[2017-10-15] MEDS: PROTONIX INJ 40 MG VIAL IVP SCH (08:26)
[2017-10-15] MEDS: COLACE CAP 100 MG PO PRN (08:26)
[2017-10-15] MEDS: MAXIPIME IV SCH (08:27)
[2017-10-15] MEDS: NS IV SCH (08:27)
[2017-10-15] MEDS: SPIKE MINIBAG IV SCH (08:27)
[2017-10-15 11:35] VITALS: BP 146/68
== END 2017-10-15 11:50 | disposition home health service (06) | DRG 683 ==
LOC: ER 10:34 → ICU 12:55
PROVIDERS: ADMIT Internal Medicine; ATTEND Internal Medicine
DX: N17.8 Other acute kidney failure (principal); N18.3 Chronic kidney disease, stage 3 (moderate); N39.0 Urinary tract infection, site not specified; E87.5 Hyperkalemia; I95.89 Other hypotension; I25.10 Atherosclerotic heart disease of native coronary artery without angina pectoris; F32.89 Other specified depressive episodes; E11.65 Type 2 diabetes mellitus with hyperglycemia; K21.9 Gastro-esophageal reflux disease without esophagitis; I10 Essential (primary) hypertension; R06.02 Shortness of breath; Z91.81 History of falling; M25.512 Pain in left shoulder; E86.0 Dehydration; Z89.511 Acquired absence of right leg below knee; I73.89 Other specified peripheral vascular diseases; Z89.432 Acquired absence of left foot; E87.2 Acidosis; R11.2 Nausea with vomiting, unspecified; K59.09 Other constipation; R18.8 Other ascites; E11.43 Type 2 diabetes mellitus with diabetic autonomic (poly)neuropathy; K31.84 Gastroparesis; I50.9 Heart failure, unspecified; R26.89 Other abnormalities of gait and mobility
CPT/HCPCS: 36415; 36600; 71045; 73030; 73221; 74018; 74176; 80053; 81001; 81002; 82009; 82150; 82550; 82553; 82607; 82728; 82746; 82803; 83540; 83605; 83690; 83735; 84132; 84466; 84484; 85025; 85610; 85730; 86850; 86900; 86901; 87040; 87086; 93005; 93010; 96365; 96374; 96375; 97535; 99284; 99285; A4222; C9113; J0360; J0692; J1630; J1815; J1940; J2270; J2405; J2550; J2765; J3480; J3490

== ENCOUNTER 2017-10-22 14:16 | Inpatient (IN) | payer OTHER, MEDICAID ==
--- NOTE | 2017-10-22 14:24 | DR.HYPOGLY ---
HPI - Time Seen Time seen: 14:30 - Complaint Chief Complaint Doctors Comments: EMS responded to call from the home patient with complaint of patient being unresponsive. She arrived responsive to deep stimuli. She states that she last took her insulin two days ag. Upon arrival her glucose reading was greather than 800 per EMS. Patient was responsive. PMH - PMH Past Medical History: Coronary Artery Disease, Depression, Diabetes, Migraines, GERD, Headaches, Hypertension, Renal Disease Past Surgical History: Yes Surgical History: , CABG/Valve Surgery, Cholecystectomy, Ortho Surgery - Family History Family Medical History: Diabetes Mellitus, Cancer, [place], Sudden Cardiac , Hypertension - Social History Do you use any recreational Drugs:: No ROS - Review of Systems Eyes: No Symptoms Reported ENTM: No Symptoms Reported Respiratoy: No Symptoms Reported Cardiovascular: No Symptoms Reported Gastrointestinal/Abdominal: No Symptoms Reported Genitourinary: No Symptoms Reported Neurological: No Symptoms Reported Musculoskeletal: No Symptoms Reported Integumentary: No Symptoms Reported Hematologic/Lymphatic: No Symptoms Reported Endocrine: No Symptoms Reported Psychiatric: No Symptoms Reported All Other Systems: Reviewed and Negative PE - Vital Signs Vitals: Temperature 98.9 F Pulse Rate [Left Brachial] 79 Pulse Rate 84 Respiratory Rate 20 Blood Pressure [Left Arm] 114/62 Blood Pressure [Right Arm] 221/102 Blood Pressure 193/91 O2 Sat by Pulse Oximetry 100 - General Limitations: No Limitations - Eyes Eye exam: Normal Appearance, PERRL, EOMI, Other (right with cataract) Pupils: Regular, Round: Bilateral Sclera/Conjunctival: Normal Inspection: Bilateral - ENT ENT Exam: Normal Exam Nose Exam: Normal Nose Exam Mouth Exam: Normal Inspection Throat Exam: Normal Inspection - Neck Neck Exam: Normal Inspection - Chest Chest Inspection: Normal Inspection - Respiratory Respiratory Exam: Normal Lung Sounds Bilat Respiratory Exam: Bilateral Clear to Auscultation - Cardiovascular Cardiovascular Exam: Regular Rate, Normal Rhythm - Abdominal Exam Abdominal Exam: Normal Inspection, Normal Bowel Sounds Abdominal Tenderness: negative: RUQ, RLQ, LUQ, LLQ, Epigastrium, Suprapubic, Diffuse, Mild, Moderate, Severe, Other - Extremities Extremities Exam: Normal Inspection, Full ROM - Back Back Exam: Normal Inspection, Full ROM - Neurologic Neurological Exam: Alert, Oriented X3, CN II-XII Intact Speech: Fluid Speech Cranial Nerve Exam: EOM Function (II, III, IV, ): Normal Sensory Exam Upper Extremity: Light Touch: Normal Sensory Exam Lower Extremity: Light Touch: Normal - Psychiatric Psychiatric Exam: Normal Mood - Skin Skin Exam: Warm, Dry, Intact Course - Reevaluation 1st: Improved ROR - Labs Reviewed Result Diagrams: 10/22/17 14:28 10/22/17 16:19 Laboratory: WBC 3.2 X10^3/uL (3.6-10.0) L 10/22/17 14:28 RBC 3.25 X10^6/uL (3.5-5.4) L 10/22/17 14:28 Hgb 9.9 g/dL (12.0-16.0) L 10/22/17 14:28 Hct 30.1 % (36.0-47.0) L 10/22/17 14: MCV 92.5 fL (80.0-100.0) 10/22/17 14:28 MCH 30.5 pg (27.0-34.0) 10/22/17 14:28 MCHC 32.9 g/dL (33.0-35.0) L 10/22/17 14:28 RDW 13.6 % (11.6-16.5) 10/22/17 14:28 Plt Count 188 X10^3/uL (150.0-450.0) 10/22/17 14:28 MPV 9.0 fL (7.4-11.0) 10/22/17 14:28 Neut % (Auto) 57.3 % (42.0-75.0) 10/22/17 14:28 Lymph % (Auto) 28.5 % (21.0-51.0) 10/22/17 14:28 [place] % (Auto) 8.8 % (0.0-13.0) 10/22/17 14:28 Eos % (Auto) 3.5 % (0.9-2.9) H 10/22/17 14:28 Baso % (Auto) 1.9 % (0.2-1.0) H 10/22/17 14:28 Neut # (Auto) 1.9 x10^3/uL (2.2-4.8) L 10/22/17 14:28 Lymph # (Auto) 0.9 X10^3/uL (1.3-2.9) L 10/22/17 14:28 [place] # (Auto) 0.3 x10^3/uL (0.3-0.8) 10/22/17 14:28 Eos # (Auto) 0.1 x10^3/uL (0.0-0.2) 10/22/17 14:28 Baso # (Auto) 0.1 X10^3/uL (0.0-0.1) 10/22/17 14:28 Absolute Nucleated RBC 0.0 /100WBC 10/22/17 14:28 Sample Site Lra 10/22/17 15:50 ABG pH 7.380 (7.35-7.45) 10/22/17 15:50 ABG pCO2 45.0 mmHg (35.0-45.0) 10/22/17 15:50 ABG pO2 120.0 mmHg (80.0-100.0) H 10/22/17 15:50 ABG HCO3 26.6 mmol/L (22-26) H 10/22/17 15:50 ABG O2 Saturation 99.0 % (90-100) 10/22/17 15:50 ABG Base Excess 1.1 mmol/L (-2.0-2.0) 10/22/17 15:50 Nathan Test Pos 10/22/17 15:50 A-a Gradient 23.0 mmHg 10/22/17 15:50 FiO2 28.000 10/22/17 15:50 Blood Gas Comments Jona well cs 10/22/17 15:50 Sodium 138 mmol/L (136-145) 10/22/17 14:28 Corrected Sodium 152 mmol/L (136-145) H 10/22/17 14:28 Potassium 4.2 mmol/L (3.5-5.1) 10/22/17 14:28 Chloride 102 mmol/L (98-107) 10/22/17 14:28 Carbon Dioxide 24.9 mmol/L (21-32) 10/22/17 14:28 BUN 13 mg/dL (7-18) 10/22/17 14:28 Creatinine 1.66 mg/dL (0.55-1.02) H 10/22/17 14:28 Est GFR (MDRD) Af Amer 44 (>60) L 10/22/17 14:28 Est GFR (MDRD) Non-Af 37 (>60) L 10/22/17 14:28 Glucose 748 mg/dL (65-99) H* 10/22/17 16:19 Calcium 7.6 mg/dL (8.5-10.1) L 10/22/17 14:28 Corrected Calcium 8.5 mg/dL (8.5-10.1) 10/22/17 14:28 Total Bilirubin 0.30 mg/dL (0.2-1.0) 10/22/17 14:28 AST 11 Units/L (15-37) L 10/22/17 14:28 ALT 22 Units/L (12-78) 10/22/17 14:28 Alkaline Phosphatase 98 Units/L (46-116) 10/22/17 14:28 C-Reactive Protein 9.90 mg/L (0-3.0) H 10/22/17 14:28 Total Protein 6.8 g/dL (6.4-8.2) 10/22/17 14:28 Albumin 2.9 g/dL (3.4-5.0) L 10/22/17 14:28 Globulin 3.9 g/dL (2.5-4.5) 10/22/17 14:28 Albumin/Globulin Ratio 0.7 Ratio (1.1-2.1) L 10/22/17 14:28 Specimen Type Catherized urine 10/22/17 14:52 Urine Color Yellow (YELLOW) 10/22/17 14:52 Urine Appearance Slightly hazy (CLEAR) 10/22/17 14:52 Urine pH 6.0 (5.0 - 8.0) 10/22/17 14:52 Ur Specific [place] 1.010 (1.000-1.030) 10/22/17 14:52 Urine Protein 4+ (NEGATIVE) 10/22/17 14:52 Urine Glucose (UA) 4+ (NEGATIVE) 10/22/17 14:52 Urine Ketones Negative (NEGATIVE) 10/22/17 14:52 Urine Occult Blood 2+ (NEGATIVE) 10/22/17 14:52 Urine Nitrite Negative (NEGATIVE) 10/22/17 14:52 Urine Bilirubin Negative (NEGATIVE) 10/22/17 14:52 Urine Urobilinogen Normal (NORMAL) 10/22/17 14:52 Ur Leukocyte Esterase Negative (NEGATIVE) 10/22/17 14:52 Urine RBC 3-5 /HPF (NONE SEEN) 10/22/17 14:52 Urine WBC None seen /HPF (NONE SEEN) 10/22/17 14:52 Ur Squamous Epith Cells Rare /HPF (NEGATIVE) 10/22/17 14:52 Amorphous Sediment Trace /HPF (NEGATIVE) 10/22/17 14:52 Urine Bacteria Trace /HPF (NEGATIVE) 10/22/17 14:52 Ur Culture Indicated? No/not indicated 10/22/17 14:52 Acetone, Semi-Quant Negative (NEGATIVE) 10/22/17 14:28 - Diagnosis Discharge Problem: Non-ketotic hyperglycinemia Leukopenia Qualifiers: Leukopenia type: unspecified Qualified Code(s): D72.819 - Decreased white blood cell count, unspecified - Discharge Plan Condition: Stable - Follow ups/Referrals Follow ups/Referrals: NISH HERNANDEZ [Primary Care Provider] - 3 days - Instructions
[2017-10-22] MEDS ORDERED: NS 1000 ML 1,000 ML IV ONE (14:25)
[2017-10-22] MEDS ORDERED: NS 1000 ML 1,000 ML ONE ×2 (14:26→15:52)
[2017-10-22 14:36] LABS: BASOPHILS # (AUTO) 0.1 X10^3/uL (0.0-0.1); BASOPHILS % (AUTO) 1.9 % (0.2-1.0); EOSINOPHILS # (AUTO) 0.1 x10^3/uL (0.0-0.2); EOSINOPHILS % (AUTO) 3.5 % (0.9-2.9); HEMATOCRIT 30.1 % (36.0-47.0); HEMOGLOBIN 9.9 g/dL (12.0-16.0); LYMPHOCYTES # (AUTO) 0.9 X10^3/uL (1.3-2.9); LYMPHOCYTES % (AUTO) 28.5 % (21.0-51.0); MEAN CORPUSCULAR HEMOGLOBIN 30.5 pg (27.0-34.0); MEAN CORPUSCULAR HGB CONC 32.9 g/dL (33.0-35.0); MEAN CORPUSCULAR VOLUME 92.5 fL (80.0-100.0); MONOCYTES # (AUTO) 0.3 x10^3/uL (0.3-0.8); MONOCYTES % (AUTO) 8.8 % (0.0-13.0); NEUTROPHILS # (AUTO) 1.9 x10^3/uL (2.2-4.8); NEUTROPHILS % (AUTO) 57.3 % (42.0-75.0); PLATELET COUNT 188 X10^3/uL (150.0-450.0); RED BLOOD COUNT 3.25 X10^6/uL (3.5-5.4); RED CELL DISTRIBUTION WIDTH 13.6 % (11.6-16.5); WHITE BLOOD COUNT 3.2 X10^3/uL (3.6-10.0)
[2017-10-22 14:48] LABS: ALBUMIN 2.9 g/dL (3.4-5.0); C-REACTIVE PROTEIN 9.9 mg/L (0-3.0); CALCIUM 7.6 mg/dL (8.5-10.1); CARBON DIOXIDE 24.9 mmol/L (21-32); COR CA(FOR HYPOALB) 8.5 mg/dL (8.5-10.1); CREATININE 1.66 mg/dL (0.55-1.02); TOTAL PROTEIN 6.8 g/dL (6.4-8.2)
[2017-10-22 15:03] LABS: BILIRUBIN,URINE NEGATIVE (NEGATIVE); BLOOD/HEMOGLOBIN,URINE 2+ (NEGATIVE); GLUCOSE, URINE 4+ (NEGATIVE); KETONES,URINE NEGATIVE (NEGATIVE); LEUKOCYTE ESTERASE ,URINE NEGATIVE (NEGATIVE); NITRITES,URINE NEGATIVE (NEGATIVE); PROTEIN,URINE 4+ (NEGATIVE); UROBILINOGEN,URINE NORMAL (NORMAL)
[2017-10-22 15:12] LABS: APPEARANCE,URINE SLIGHTLY HAZY (CLEAR); COLOR,URINE YELLOW (YELLOW)
[2017-10-22 15:13] LABS: AMORPHOUS SEDIMENT,UR TRACE /HPF (NEGATIVE); BACTERIA,URINE TRACE /HPF (NEGATIVE); SQUAMOUS EPITHELIAL CELL,UR RARE /HPF (NEGATIVE)
[2017-10-22] MEDS: NS 1000 ML 1,000 ML IV SCH ×2 (15:54→18:25)
[2017-10-22 15:55] LABS: ABG BASE EXCESS 1.1 mmol/L (-2.0-2.0); ABG HCO3 26.6 mmol/L (22-26)
[2017-10-22 15:56] LABS: ABG ALLEN TEST POS
[2017-10-22] MEDS ORDERED: APRESOLINE INJ 20 MG VIAL IVP ONE ×2 (16:23→17:40)
[2017-10-22] MEDS ORDERED: APRESOLINE INJ 20 MG VIAL ONE ×2 (16:32→17:37)
[2017-10-22] MEDS ORDERED: HumuLIN R IV ONE (16:52)
[2017-10-22] MEDS ORDERED: HumuLIN R ONE (16:53)
[2017-10-22] MEDS ORDERED: ZOFRAN INJ 4 MG VIAL IVP ONE (17:24)
--- NOTE | 2017-10-22 17:31 | RAD ---
Chest, one view Indication: Hyperglycemia Comparison: 10/03/2017 Findings: The patient is rotated toward the right. Accounting for rotation, there is stable cardiomeg amanda without congestive failure. Prior CABG changes noted. The lungs are mildly hypoinflated but clear . No significant pleural effusion or pneumothorax identified. Impression: No acute cardiopulmonary abnormality. Reported By:
[2017-10-22] MEDS ORDERED: PHENERGAN TAB 25 MG PO PRN (18:22)
[2017-10-22] MEDS ORDERED: ZOFRAN INJ 4 MG VIAL IVP PRN (18:26)
[2017-10-22] MEDS ORDERED: TYLENOL 325 MG TAB PO ONE (19:44)
[2017-10-22] MEDS ORDERED: TYLENOL 325 MG TAB PO PRN (19:51)
[2017-10-22] MEDS: NORCO 10/325 TAB PO PRN (19:52)
[2017-10-22 19:59] VITALS: BMI 34.8
[2017-10-22] MEDS ORDERED: SNACK - Diabetic Appropriate PO SCH (20:00)
[2017-10-22] MEDS ORDERED: REGLAN INJ 10 MG VIAL IVP PRN (20:45)
[2017-10-22] MEDS ORDERED: PHENERGAN INJ 25 MG IV PRN (20:46)
[2017-10-22] MEDS ORDERED: REGLAN TAB 10 MG PO SCH (21:00)
[2017-10-22] MEDS: CELEXA PO SCH (21:00)
[2017-10-22] MEDS: PROTONIX INJ 40 MG VIAL IVP SCH (21:01)
[2017-10-22] MEDS: LYRICA CAP 50 MG PO SCH (21:01)
[2017-10-22] MEDS: MORPHINE SULFATE INJ 2 MG INJ IVP PRN (21:04)
[2017-10-22] MEDS: REGLAN INJ 10 MG VIAL IVP SCH (21:05)
[2017-10-22 21:11] LABS: BASOPHILS # (AUTO) 0.1 X10^3/uL (0.0-0.1); BASOPHILS % (AUTO) 1.1 % (0.2-1.0); EOSINOPHILS # (AUTO) 0.1 x10^3/uL (0.0-0.2); EOSINOPHILS % (AUTO) 1.2 % (0.9-2.9); HEMOGLOBIN 10.7 g/dL (12.0-16.0); LYMPHOCYTES # (AUTO) 0.9 X10^3/uL (1.3-2.9); LYMPHOCYTES % (AUTO) 12.7 % (21.0-51.0); MEAN CORPUSCULAR HEMOGLOBIN 30.6 pg (27.0-34.0); MEAN CORPUSCULAR HGB CONC 33.4 g/dL (33.0-35.0); MEAN CORPUSCULAR VOLUME 91.6 fL (80.0-100.0); MEAN PLATELET VOLUME 9.1 fL (7.4-11.0); MONOCYTES # (AUTO) 0.4 x10^3/uL (0.3-0.8); MONOCYTES % (AUTO) 5.4 % (0.0-13.0); NEUTROPHILS # (AUTO) 5.5 x10^3/uL (2.2-4.8); NEUTROPHILS % (AUTO) 79.6 % (42.0-75.0); PLATELET COUNT 231 X10^3/uL (150.0-450.0); RED BLOOD COUNT 3.49 X10^6/uL (3.5-5.4); RED CELL DISTRIBUTION WIDTH 13.2 % (11.6-16.5); WHITE BLOOD COUNT 6.9 X10^3/uL (3.6-10.0)
[2017-10-22 21:20] LABS: SERUM ACETONE SMALL (NEGATIVE)
[2017-10-22] MEDS ORDERED: APRESOLINE INJ 20 MG VIAL IVP PRN ×2 (21:28→22:39)
--- NOTE | 2017-10-22 22:21 | RAD ---
KUB Indication: Nasogastric tube placement Comparison: 10/13/2017 Findings: Nasogastric tube has its tip terminating within the gastric body. Previous cholecystectomy is noted. There is a normal bowel gas pattern. No free air or pneumatosis. No pathological soft tissue mass or calcification can be observed. The bony structures are grossly intact. IMPRESSION: No evidence for acute abdominal or pelvic pathology identified. Nasogastric tube has its tip terminating within the mid gastric body. Reported By:
[2017-10-22] MEDS ORDERED: HumuLIN R SUBCUT ONE (22:42)
[2017-10-22] MEDS ORDERED: LEVAQUIN PREMIX IV 750 MG 750 MG/150 ML BAG IV SCH (23:00)
[2017-10-22] MEDS: LEVAQUIN PREMIX IV 750 MG 750 MG/150 ML BAG IV SCH (23:30)
[2017-10-22] MEDS ORDERED: TYLENOL SUPP 650 MG PR PRN (23:59)
[2017-10-23] MEDS ORDERED: TORADOL 60 MG VIAL ONE (00:26)
[2017-10-23] MEDS: TORADOL 30 MG VIAL IVP PRN ×2 (00:30→08:45)
[2017-10-23] MEDS ORDERED: TORADOL 30 MG VIAL ONE (00:37)
[2017-10-23] MEDS: NS 1000 ML 1,000 ML IV SCH ×4 (00:57→16:00)
[2017-10-23] MEDS: MORPHINE SULFATE INJ 2 MG INJ IVP PRN ×4 (02:00→19:29)
[2017-10-23] MEDS: REGLAN INJ 10 MG VIAL IVP SCH ×4 (02:00→20:57)
[2017-10-23] MEDS ORDERED: HumuLIN R SUBCUT ONE (02:05)
[2017-10-23 06:14] LABS: BASOPHILS # (AUTO) 0.1 X10^3/uL (0.0-0.1); BASOPHILS % (AUTO) 1.5 % (0.2-1.0); EOSINOPHILS % (AUTO) 0.1 % (0.9-2.9); HEMATOCRIT 29.5 % (36.0-47.0); LYMPHOCYTES # (AUTO) 0.9 X10^3/uL (1.3-2.9); LYMPHOCYTES % (AUTO) 12.1 % (21.0-51.0); MEAN CORPUSCULAR HEMOGLOBIN 30.7 pg (27.0-34.0); MEAN CORPUSCULAR HGB CONC 33.8 g/dL (33.0-35.0); MEAN CORPUSCULAR VOLUME 90.7 fL (80.0-100.0); MEAN PLATELET VOLUME 9.8 fL (7.4-11.0); MONOCYTES # (AUTO) 0.4 x10^3/uL (0.3-0.8); MONOCYTES % (AUTO) 5.9 % (0.0-13.0); NEUTROPHILS % (AUTO) 80.4 % (42.0-75.0); PLATELET COUNT 232 X10^3/uL (150.0-450.0); RED BLOOD COUNT 3.26 X10^6/uL (3.5-5.4); RED CELL DISTRIBUTION WIDTH 13.5 % (11.6-16.5); WHITE BLOOD COUNT 7.4 X10^3/uL (3.6-10.0)
[2017-10-23] MEDS: HumuLIN R SUBCUT PRN ×2 (06:17→21:15)
[2017-10-23 06:37] LABS: ALBUMIN 2.9 g/dL (3.4-5.0); CALCIUM 7.5 mg/dL (8.5-10.1); CARBON DIOXIDE 23.1 mmol/L (21-32); COR CA(FOR HYPOALB) 8.4 mg/dL (8.5-10.1); CREATININE 1.99 mg/dL (0.55-1.02); TOTAL PROTEIN 6.8 g/dL (6.4-8.2)
--- NOTE | 2017-10-23 06:57 | CT ---
STUDY: CT HEAD WITHOUT CONTRAST HISTORY: Confusion, fever, hyperglycemia TECHNIQUE: Multiple axial images of the head were obtained from the skull base to the vertex without administration of IV contrast. Automated exposure control (AEC) was utilized to adjust the MA and/o r kV. COMPARISON: November 25, 2016 FINDINGS: The sulci, cisterns and ventricles are age appropriate. There is no evidence of acute terr itorial infarction, hemorrhage, mass, mass effect, or midline shift. There are no abnormal intra-axia l or extra-axial fluid collections. There is no evidence of acute osseous abnormality or significant soft tissue swelling. Chronic parana phillip sinus mucosal thickening is noted. IMPRESSION: No acute intracranial process. Mild chronic paranasal sinusitis. Reported By:
--- NOTE | 2017-10-23 07:16 | RAD ---
HISTORY: Hyperglycemia Study: Chest AP portable Comparison: 10/22/2017 Findings: The patient is status post median sternotomy and CABG. There is a nasogastric tube with its tip below the left hemidiaphragm. The heart remains enlarged. No congestive heart failure is noted. The lungs are hypo inflated but clear. The bony thorax is unremarkable. IMPRESSION: Moderate cardiomegaly without congestive heart failure Lungs hypo inflated but clear Reported By:
[2017-10-23] MEDS: PROTONIX INJ 40 MG VIAL IVP SCH ×2 (08:45→20:57)
[2017-10-23] MEDS: CATAPRES TAB 0.1 MG PO SCH (08:46)
[2017-10-23] MEDS: COZAAR PO SCH (08:46)
[2017-10-23] MEDS: MAG-OX TAB PO SCH (08:47)
[2017-10-23] MEDS: EFFEXOR XR 75 MG CAP PO SCH (08:47)
[2017-10-23] MEDS: TOPAMAX PO SCH (08:47)
[2017-10-23] MEDS: PLAVIX PO SCH (08:47)
[2017-10-23] MEDS: LASIX PO SCH (08:47)
[2017-10-23] MEDS: LYRICA CAP 50 MG PO SCH ×2 (08:47→20:57)
[2017-10-23] MEDS ORDERED: PROTONIX TAB 40 MG PO SCH (09:00)
[2017-10-23] MEDS ORDERED: PATIENT'S HOME MEDICATION (Losartan Potassium [Losartan Potassium] 25 MG) PO SCH (09:00)
[2017-10-23] MEDS ORDERED: TOPIRAMATE 50 MG PO SCH (09:00)
[2017-10-23] MEDS ORDERED: VENLAFAXINE HCL PO SCH (09:00)
[2017-10-23] MEDS ORDERED: FUROSEMIDE PO SCH (09:00)
[2017-10-23] MEDS: CELEXA PO SCH (20:57)
[2017-10-23] MEDS: LEVAQUIN PREMIX IV 750 MG 750 MG/150 ML BAG IV SCH (20:58)
[2017-10-24] MEDS: MORPHINE SULFATE INJ 2 MG INJ IVP PRN ×4 (00:43→18:59)
[2017-10-24] MEDS: REGLAN INJ 10 MG VIAL IVP SCH ×4 (03:00→20:43)
[2017-10-24] MEDS: NS 1000 ML 1,000 ML IV SCH ×2 (04:37→07:12)
[2017-10-24] MEDS: HumuLIN R SUBCUT PRN ×2 (06:08→11:32)
[2017-10-24 06:29] LABS: BASOPHILS # (AUTO) 0.1 X10^3/uL (0.0-0.1); BASOPHILS % (AUTO) 1.6 % (0.2-1.0); EOSINOPHILS # (AUTO) 0.1 x10^3/uL (0.0-0.2); EOSINOPHILS % (AUTO) 1.7 % (0.9-2.9); HEMATOCRIT 26.8 % (36.0-47.0); LYMPHOCYTES % (AUTO) 16.5 % (21.0-51.0); MEAN CORPUSCULAR HEMOGLOBIN 30.8 pg (27.0-34.0); MEAN CORPUSCULAR HGB CONC 33.5 g/dL (33.0-35.0); MEAN CORPUSCULAR VOLUME 91.8 fL (80.0-100.0); MEAN PLATELET VOLUME 10.6 fL (7.4-11.0); MONOCYTES # (AUTO) 0.4 x10^3/uL (0.3-0.8); MONOCYTES % (AUTO) 6.4 % (0.0-13.0); NEUTROPHILS # (AUTO) 4.7 x10^3/uL (2.2-4.8); NEUTROPHILS % (AUTO) 73.8 % (42.0-75.0); PLATELET COUNT 161 X10^3/uL (150.0-450.0); RED BLOOD COUNT 2.92 X10^6/uL (3.5-5.4); RED CELL DISTRIBUTION WIDTH 13.7 % (11.6-16.5); WHITE BLOOD COUNT 6.4 X10^3/uL (3.6-10.0)
[2017-10-24] MEDS: TORADOL 30 MG VIAL IVP PRN (07:12)
[2017-10-24] MEDS: PHENERGAN INJ 25 MG IV PRN (07:13)
[2017-10-24 07:15] LABS: PLATELET MORPHOLOGY COMMENT NORMAL (NORMAL)
[2017-10-24 07:42] LABS: ALBUMIN 2.7 g/dL (3.4-5.0); CARBON DIOXIDE 24.1 mmol/L (21-32); CREATININE 2.24 mg/dL (0.55-1.02); TOTAL PROTEIN 6.3 g/dL (6.4-8.2)
[2017-10-24] MEDS: PROTONIX INJ 40 MG VIAL IVP SCH ×2 (08:07→20:43)
[2017-10-24] MEDS: LASIX PO SCH (08:08)
[2017-10-24] MEDS: COZAAR PO SCH (08:08)
[2017-10-24] MEDS: EFFEXOR XR 75 MG CAP PO SCH (08:08)
[2017-10-24] MEDS: PLAVIX PO SCH (08:08)
[2017-10-24] MEDS: LYRICA CAP 50 MG PO SCH ×2 (08:08→20:44)
[2017-10-24] MEDS: CATAPRES TAB 0.1 MG PO SCH (08:08)
[2017-10-24] MEDS: MAG-OX TAB PO SCH (08:08)
[2017-10-24] MEDS: TOPAMAX PO SCH (08:09)
[2017-10-24] MEDS ORDERED: ATIVAN INJ 2 MG VIAL IVP ONE (08:20)
[2017-10-24] MEDS ORDERED: ATIVAN INJ 2 MG VIAL ONE (08:22)
[2017-10-24] MEDS ORDERED: NS 1/2 1000 ML IV 1,000 ML IV ONE ×3 (08:44→12:13)
[2017-10-24] MEDS ORDERED: TYLENOL SUPP 650 MG PR ONE (08:50)
[2017-10-24 08:51] LABS: ABG BASE EXCESS -4.7 mmol/L (-2.0-2.0); ABG HCO3 20.4 mmol/L (22-26)
[2017-10-24] MEDS ORDERED: TYLENOL SUPP 650 MG PR PRN (08:52)
[2017-10-24] MEDS ORDERED: ATIVAN INJ 2 MG VIAL IVP PRN (08:59)
--- NOTE | 2017-10-24 09:32 | CT ---
History: Confusion, new onset seizure Study: CT brain without contrast Findings: [address] imaging through the head is performed without intravenous contrast with coron al and sagittal reformatted images submitted as well. Comparison is made to previous study of 018. Ventricles are normal in size and position. Willis-white matter appear unremarkable. No space-occu pying mass, bleed, infarct or subdural collection is identified. Mucosal thickening within the ethmoi d air cells is present as before. There is been a previous right medial antrectomy. The right orbit i s small and hyperdense and contains calcium. This finding is unchanged. Impression: No acute intracranial pathology is identified. Reported By:
--- NOTE | 2017-10-24 09:34 | CT ---
HISTORY: Fever, shortness of breath Study: CT chest without contrast Comparison: 10/08/2017 Technique: Axial noncontrast images with coronal and sagittal reformats. Dose reduction procedures we re used with mA/kv adjusted for body size. The examination is limited due to the lack of intravenous contrast. The examination was performed in this manner at the sole discretion of the ordering [facility] er. Findings: Examination of the mediastinum demonstrated no evidence for mediastinal masses, enlarged mediastinal adenopathy, or enlarged hilar adenopathy. The heart is enlarged. Coronary artery calcifications are p resent. No pleural effusions are identified. No chest wall or axillary abnormality is identified. Tho se portions of the upper abdominal organs visualized were within normal limits with the exception of a 3.3 by 2.7 cm partially rim calcified left upper pole renal mass which does not meet the noncontras t criteria for a simple cyst. Further evaluation with renal protocol CT with and without contrast is recommended. Alternatively if the patient cannot tolerate IV contrast MRI would be of further diagnos tic value. Examination of the lung garrido demonstrated no significant nodules, masses, alveolar infil trates, areas of consolidation, peribronchial thickening, or bronchiectasis. There are subtle bilater al ground-glass infiltrates which may indicate edema. Interstitial Ej's B-lines are identified. IMPRESSION: Cardiomegaly with mild congestive heart failure No acute alveolar infiltrates 3.3 x 2.2 cm partially rim calcified left upper pole renal mass which does not meet the noncontrast C T criteria for a simple cyst. See recommendations as above Reported By:
[2017-10-24] MEDS ORDERED: XYLOCAINE 1 % (PLAIN) ONE (10:01)
--- NOTE | 2017-10-24 10:41 | RAD ---
HISTORY: Central line placement Study: AP portable chest Comparison: 10/23/2017, CT of the chest 10/24/2017. Please see that report. Findings: Minimal pulmonary vascular congestion is noted. Mild cardiomegaly is present. The patient is status post median sternotomy. Surgical clips are present projected over the left side of the mediastinum. A right-sided central line has been placed. The tip is at the cavoatrial junction. No complicating features are noted. No evidence of pneumothorax is present. IMPRESSION: 1. Mild cardiomegaly with minimal central pulmonary vascular congestion. 2. A right-sided central line is present in satisfactory position. No complicating features are not ed. 3. No evidence of pneumothorax is present. Reported By:
[2017-10-24] MEDS: ROCEPHIN VIAL 1 GM 1 GM in NS 100 ML IV + SPIKE MINIBAG* 100 ML IV SCH ×2 (11:06→11:07)
[2017-10-24] MEDS: ZOSYN VIAL 2.25 GM 2.25 GM in NS 100 ML IV + SPIKE MINIBAG* 100 ML IV SCH ×3 (11:21→21:02)
[2017-10-24] MEDS: NS 1/2 1000 ML IV 1,000 ML IV SCH (12:20)
--- NOTE | 2017-10-24 12:34 | DR.H&P ---
H&P - History & Physical for Day of: H&P Date: 10/22/17 - Chief Complaint Chief Complaint: unresponsive - Allergies Allergies/Adverse Reactions: Allergies Allergy/AdvReac Type Severity Reaction Status Date / Time No Known Drug Allergies Allergy Verified 10/02/17 10:39 - History of Present Illness History of Present Illness: PT IS 37 WF ER ADMISSION AFTER EMS REPONDED PT WAS UNRESPONSIVE. PT BS PER EMS > 800. PT IS KNOWN DIABETIC RECENTLY IN [facility] FOR ACUTE RENAL FAILURE. PT WAS FEBRILE ON ADMISSION. PT HAS PMH OF DM, HTN, CAD, CHF, CRF, OA. PT ADMITTED TO ICU FOR TREATMENT OF ACUTE ILLNESS, BS CONTROL, HTN URGENCY - Past Medical History Past Medical History: CHF, Coronary Artery Disease, Depression, Diabetes, Migraines, GERD, Headaches, Hypertension, Renal Disease - Past Surgical History Surgical History: , CABG/Valve Surgery, Cholecystectomy, Ortho Surgery , Other - Family History Family Medical History: Diabetes Mellitus, Cancer, [place], Sudden Cardiac , Hypertension - Social History Does patient currently use any type of tobacco product: No Have you used tobacco products in the last 12 months: No Type of Tobacco Use: None Does any household member use tobacco: No Alcohol Use: None Drug Use: None - Medications Home Medications: Clonidine HCl [CATAPRES 0.1 MG TAB *] 1 tab PO DAILY 10/22/17 [History Confirmed 10/22/17] Insulin Aspart [NovoLog insulin 10 mL vial] 15 unit SQ DAILY 10/22/17 [History Confirmed 10/22/17] Insulin Glargine (Lantus) [LANTUS INSULIN 10 ML VIAL *] 10 unit SQ HS 10/22/17 [ History Confirmed 10/22/17] Promethazine HCl [PHENERGAN TAB 25 MG *] 1 tab PO PRN PRN 10/22/17 [History Confirmed 10/22/17] - Review of Systems Constitutional: Fever, Weakness Eyes: No Symptoms Reported ENT: No Symptoms Reported Respiratory: Shortness of Breath Cardiovascular: denies: Edema Gastrointestinal: Nausea, Vomiting Genitourinary: No Symptoms Reported Musculoskeletal: Shoulder Pain Skin: Other (DIFFUSE PALLOR) Neurological: Weakness, Confusion - Physical Exam Vital Signs: Temperature 101.4 F Pulse Rate [Left Brachial] 112 Pulse Rate 84 Respiratory Rate 15 Blood Pressure [Left Arm] 114/62 Blood Pressure [Right Arm] 173/86 Blood Pressure 193/91 O2 Sat by Pulse Oximetry 100 Oriented: Person ( DECREASED RESPONSIVEMENT, LETHARGIC OPENS EYE TO VERBAL AND TACTILE STIMULI) Ear: Normal Nose: Normal Throat: Dry Respiratory: RLL Diminished, LLL Diminished Cardiovascular: Tachycardia. negative: Edema : Normal Auscultation: Bowel Sounds: Increased Tenderness: Diffuse Skin: Decreased Turgur Musculoskeletal: Left, Shoulder Speech Pattern: Unclear, Delayed - Assessment/Plan (1) Altered mental status Status: Acute Plan: ADMIT ICU, ADMISSION LABS. CXR, BLOOD CULTURES, CARDIAC MONITORING, I & OS. FEVER CONTROL, BS CONTROL, INSULIN, BP MONITORING RESUME HOME BP MEDICATION. LACTIC ACID, O2 (2) Fever Status: Acute (3) Hyperglycemia due to type 1 diabetes mellitus Status: Acute (4) Intractable nausea and vomiting Status: Acute (5) CAD (coronary artery disease) Status: Chronic (6) Chronic kidney disease (CKD) Qualifiers: Chronic kidney disease stage: stage 3 (moderate) Qualified Code(s): N18.3 - Chronic kidney disease, stage 3 (moderate) Status: Chronic (7) Diabetes mellitus Status: Chronic (8) History of right below knee amputation Status: Chronic (9) Hx of CABG Status: Chronic
--- NOTE | 2017-10-24 13:31 | PCM.PROG ---
Progress Note - Progress Note for Day of Date: 10/23/17 - Subjective Subjective: 37 WF ADMITTED ON 10/22 FROM ER WITH FEVER, CONFUSION, HYPERGLYCEMIA. PT HAS BEEN RUNNING FEVER DURING THIS NIGHT HIGH 105 PER NURSING STAFF. PT HAVING INTRACTABLE NV WITH IMPROVEMENT AFTER NG TUBE PLACEMENT. PT HYPERTENSIVE THIS AM, WITH PRN ORDERS FOR IV HYDRALAZINE. CT HEAD THIS AM, CONTINUE HYDRATION, IV ATBX - Past Medical Family Social History Past Med/Fam/Surg Hx: No changes since H&P Allergies: Allergies No Known Drug Allergies Allergy (Verified 10/02/17 10:39) - Review of Systems ROS: No change since H&P - Vital Signs and I&O's Vital Signs: Temperature 98.0 F Pulse Rate [Left Brachial] 67 Pulse Rate 84 Respiratory Rate 13 Blood Pressure [Left Arm] 114/62 Blood Pressure [Right Arm] 148/67 Blood Pressure 193/91 O2 Sat by Pulse Oximetry 100 Intake and Output: Intake & Output 10/22/17 10/23/17 10/24/17 10/25/17 11:59 11:59 11:59 11:59 Intake Total 1293 2393 Output Total 3200 880 Balance -1907 1513 - Physical Exam Oriented: Person ( DECREASED RESPONSIVEMENT, LETHARGIC OPENS EYE TO VERBAL AND TACTILE STIMULI) Ear: Normal Nose: Normal Throat: Dry Cardiovascular: Tachycardia. negative: Edema : Normal Auscultation: Bowel Sounds: Increased Tenderness: Diffuse Skin: Decreased Turgur Musculoskeletal: Left, Shoulder Speech Pattern: Unclear, Delayed - Laboratory and Diagnostics Result Diagrams: 10/24/17 05:23 10/24/17 07:12 Labs: 10/22/17 20:53 Blood Blood Culture - Preliminary 10/22/17 20:59 Blood Blood Culture - Preliminary Laboratory WBC 6.4 X10^3/uL (3.6-10.0) 10/24/17 05:23 RBC 2.92 X10^6/uL (3.5-5.4) L 10/24/17 05:23 Hgb 9.0 g/dL (12.0-16.0) L 10/24/17 05:23 Hct 26.8 % (36.0-47.0) L 10/24/17 05:23 MCV 91.8 fL (80.0-100.0) 10/24/17 05:23 MCH 30.8 pg (27.0-34.0) 10/24/17 05:23 MCHC 33.5 g/dL (33.0-35.0) 10/24/17 05:23 RDW 13.7 % (11.6-16.5) 10/24/17 05:23 Plt Count 161 X10^3/uL (150.0-450.0) 10/24/17 05:23 Plt Count Comment Adequate (ADEQUATE) 10/24/17 05:23 MPV 10.6 fL (7.4-11.0) 10/24/17 05:23 Neut % (Auto) 73.8 % (42.0-75.0) 10/24/17 05:23 Lymph % (Auto) 16.5 % (21.0-51.0) L 10/24/17 05:23 [place] % (Auto) 6.4 % (0.0-13.0) 10/24/17 05:23 Eos % (Auto) 1.7 % (0.9-2.9) 10/24/17 05:23 Baso % (Auto) 1.6 % (0.2-1.0) H 10/24/17 05:23 Neut # (Auto) 4.7 x10^3/uL (2.2-4.8) 10/24/17 05:23 Lymph # (Auto) 1.0 X10^3/uL (1.3-2.9) L 10/24/17 05:23 [place] # (Auto) 0.4 x10^3/uL (0.3-0.8) 10/24/17 05:23 Eos # (Auto) 0.1 x10^3/uL (0.0-0.2) 10/24/17 05:23 Baso # (Auto) 0.1 X10^3/uL (0.0-0.1) 10/24/17 05:23 Absolute Nucleated RBC 0.0 /100WBC 10/24/17 05:23 Plt Morphology Comment Normal (NORMAL) 10/24/17 05:23 RBC Morphology Normal (NORMAL) 10/24/17 05:23 ESR 30 MM/HOUR (0-20) H 10/23/17 05:23 INR Target Range - 10/24/17 07:12 INR 1.18 (0.8-1.3) 10/24/17 07:12 APTT 28.1 SECONDS (22.9-36.5) 10/24/17 07:12 PTT Comment - 10/24/17 07:12 Sample Site Lba 10/24/17 08:45 ABG pH 7.350 (7.35-7.45) 10/24/17 08:45 ABG pCO2 37.0 mmHg (35.0-45.0) 10/24/17 08:45 ABG pO2 78.0 mmHg (80.0-100.0) L 10/24/17 08:45 ABG HCO3 20.4 mmol/L (22-26) L 10/24/17 08:45 ABG O2 Saturation 95.0 % (90-100) 10/24/17 08:45 ABG Base Excess -4.7 mmol/L (-2.0-2.0) L 10/24/17 08:45 Nathan Test Na 10/24/17 08:45 A-a Gradient 132.0 mmHg 10/24/17 08:45 FiO2 36.000 10/24/17 08:45 Blood Gas Comments Jona well cs 10/24/17 08:45 Sodium 143 mmol/L (136-145) 10/24/17 07:12 Corrected Sodium 148 mmol/L (136-145) H 10/24/17 07:12 Potassium 3.8 mmol/L (3.5-5.1) 10/24/17 07:12 Chloride 108 mmol/L (98-107) H 10/24/17 07:12 Carbon Dioxide 24.1 mmol/L (21-32) 10/24/17 07:12 BUN 17 mg/dL (7-18) 10/24/17 07:12 Creatinine 2.24 mg/dL (0.55-1.02) H 10/24/17 07:12 Est GFR (MDRD) Af Amer 31 (>60) L 10/24/17 07:12 Est GFR (MDRD) Non-Af 26 (>60) L 10/24/17 07:12 Glucose 296 mg/dL (65-99) H 10/24/17 07:12 POC Glucose (mg/dL) 303 mg/dL (65-99) H 10/24/17 11:25 Lactic Acid 1.8 mmol/L (0.4-2.0) 10/24/17 09:38 Calcium 7.0 mg/dL (8.5-10.1) L 10/24/17 07:12 Corrected Calcium 8.0 mg/dL (8.5-10.1) L 10/24/17 07:12 Total Bilirubin 0.30 mg/dL (0.2-1.0) 10/24/17 07:12 AST 13 Units/L (15-37) L 10/24/17 07:12 ALT 30 Units/L (12-78) 10/24/17 07:12 Alkaline Phosphatase 79 Units/L (46-116) 10/24/17 07:12 C-Reactive Protein 11.50 mg/L (0-3.0) H 10/23/17 05:23 Total Protein 6.3 g/dL (6.4-8.2) L 10/24/17 07:12 Albumin 2.7 g/dL (3.4-5.0) L 10/24/17 07:12 Globulin 3.6 g/dL (2.5-4.5) 10/24/17 07:12 Albumin/Globulin Ratio 0.8 Ratio (1.1-2.1) L 10/24/17 07:12 Specimen Type Catherized urine 10/22/17 14:52 Urine Color Yellow (YELLOW) 10/22/17 14:52 Urine Appearance Slightly hazy (CLEAR) 10/22/17 14:52 Urine pH 6.0 (5.0 - 8.0) 10/22/17 14:52 Ur Specific [place] 1.010 (1.000-1.030) 10/22/17 14:52 Urine Protein 4+ (NEGATIVE) 10/22/17 14:52 Urine Glucose (UA) 4+ (NEGATIVE) 10/22/17 14:52 Urine Ketones Negative (NEGATIVE) 10/22/17 14:52 Urine Occult Blood 2+ (NEGATIVE) 10/22/17 14:52 Urine Nitrite Negative (NEGATIVE) 10/22/17 14:52 Urine Bilirubin Negative (NEGATIVE) 10/22/17 14:52 Urine Urobilinogen Normal (NORMAL) 10/22/17 14:52 Ur Leukocyte Esterase Negative (NEGATIVE) 10/22/17 14:52 Urine RBC 3-5 /HPF (NONE SEEN) 10/22/17 14:52 Urine WBC None seen /HPF (NONE SEEN) 10/22/17 14:52 Ur Squamous Epith Cells Rare /HPF (NEGATIVE) 10/22/17 14:52 Amorphous Sediment Trace /HPF (NEGATIVE) 10/22/17 14:52 Urine Bacteria Trace /HPF (NEGATIVE) 10/22/17 14:52 Ur Culture Indicated? No/not indicated 10/22/17 14:52 Acetone, Semi-Quant Negative (NEGATIVE) 10/23/17 20:47 - Plan (1) Altered mental status Status: Acute Plan: CT HEAD THIS AM. CXR, BLOOD CULTURES COLLECTED ADMISSION, CARDIAC MONITORING, I & OS. FEVER CONTROL, BS CONTROL, INSULIN, BP MONITORING RESUME HOME BP MEDICATION. LACTIC ACID, O2 (2) Fever Status: Acute (3) Hyperglycemia due to type 1 diabetes mellitus Status: Acute (4) Intractable nausea and vomiting Status: Acute (5) CAD (coronary artery disease) Status: Chronic (6) Chronic kidney disease (CKD) Status: Chronic Qualifiers: Chronic kidney disease stage: stage 3 (moderate) Qualified Code(s): N18.3 - Chronic kidney disease, stage 3 (moderate) (7) Diabetes mellitus Status: Chronic (8) History of right below knee amputation Status: Chronic (9) Hx of CABG Status: Chronic
--- NOTE | 2017-10-24 13:42 | PCM.PROG ---
Progress Note - Progress Note for Day of Date: 10/24/17 - Subjective Subjective: 37 WF ADMITTED ON 10/22 FROM ER WITH FEVER, CONFUSION, HYPERGLYCEMIA. PT HAS BEEN RUNNING FEVER DURING THIS NIGHT HIGH 105 PER NURSING STAFF. PT PULLED NG TUBE OUT DURING THIS NIGHT. PT ACTIVELY SEIZING THIS AM. PT GIVEN IV ATIVAN, STOPPED SEIZURE ACTIVITY, POST ICTAL. IV 1/2 LITER BOLUS, IV HYDRALAZINE, ABG, EKG. PT TOLERATED TREATMENT, WITH IPMROVEMENT IN BP AND STAT REPEAT CT HEAD, CT CHEST. D/C LEVAQUIN, STARTED IV ZOSYN AND ROCEPHIN. - Past Medical Family Social History Past Med/Fam/Surg Hx: No changes since H&P Allergies: Allergies No Known Drug Allergies Allergy (Verified 10/02/17 10:39) - Review of Systems ROS: No change since H&P - Vital Signs and I&O's Vital Signs: Temperature 98.0 F Pulse Rate [Left Brachial] 67 Pulse Rate 84 Respiratory Rate 13 Blood Pressure [Left Arm] 114/62 Blood Pressure [Right Arm] 148/67 Blood Pressure 193/91 O2 Sat by Pulse Oximetry 100 Intake and Output: Intake & Output 10/22/17 10/23/17 10/24/17 10/25/17 11:59 11:59 11:59 11:59 Intake Total 1293 2393 Output Total 3200 880 Balance -1907 1513 - Physical Exam Oriented: Person ( DECREASED RESPONSIVEMENT, LETHARGIC OPENS EYE TO VERBAL AND TACTILE STIMULI) Ear: Normal Nose: Normal Throat: Dry Cardiovascular: Tachycardia. negative: Edema : Normal Auscultation: Bowel Sounds: Increased Tenderness: Diffuse Skin: Decreased Turgur Musculoskeletal: Left, Shoulder Speech Pattern: Unclear, Delayed - Laboratory and Diagnostics Result Diagrams: 10/24/17 05:23 10/24/17 07:12 Labs: 10/22/17 20:53 Blood Blood Culture - Preliminary 10/22/17 20:59 Blood Blood Culture - Preliminary Laboratory WBC 6.4 X10^3/uL (3.6-10.0) 10/24/17 05:23 RBC 2.92 X10^6/uL (3.5-5.4) L 10/24/17 05:23 Hgb 9.0 g/dL (12.0-16.0) L 10/24/17 05:23 Hct 26.8 % (36.0-47.0) L 10/24/17 05:23 MCV 91.8 fL (80.0-100.0) 10/24/17 05:23 MCH 30.8 pg (27.0-34.0) 10/24/17 05:23 MCHC 33.5 g/dL (33.0-35.0) 10/24/17 05:23 RDW 13.7 % (11.6-16.5) 10/24/17 05:23 Plt Count 161 X10^3/uL (150.0-450.0) 10/24/17 05:23 Plt Count Comment Adequate (ADEQUATE) 10/24/17 05:23 MPV 10.6 fL (7.4-11.0) 10/24/17 05:23 Neut % (Auto) 73.8 % (42.0-75.0) 10/24/17 05:23 Lymph % (Auto) 16.5 % (21.0-51.0) L 10/24/17 05:23 [place] % (Auto) 6.4 % (0.0-13.0) 10/24/17 05:23 Eos % (Auto) 1.7 % (0.9-2.9) 10/24/17 05:23 Baso % (Auto) 1.6 % (0.2-1.0) H 10/24/17 05:23 Neut # (Auto) 4.7 x10^3/uL (2.2-4.8) 10/24/17 05:23 Lymph # (Auto) 1.0 X10^3/uL (1.3-2.9) L 10/24/17 05:23 [place] # (Auto) 0.4 x10^3/uL (0.3-0.8) 10/24/17 05:23 Eos # (Auto) 0.1 x10^3/uL (0.0-0.2) 10/24/17 05:23 Baso # (Auto) 0.1 X10^3/uL (0.0-0.1) 10/24/17 05:23 Absolute Nucleated RBC 0.0 /100WBC 10/24/17 05:23 Plt Morphology Comment Normal (NORMAL) 10/24/17 05:23 RBC Morphology Normal (NORMAL) 10/24/17 05:23 ESR 30 MM/HOUR (0-20) H 10/23/17 05:23 INR Target Range - 10/24/17 07:12 INR 1.18 (0.8-1.3) 10/24/17 07:12 APTT 28.1 SECONDS (22.9-36.5) 10/24/17 07:12 PTT Comment - 10/24/17 07:12 Sample Site Lba 10/24/17 08:45 ABG pH 7.350 (7.35-7.45) 10/24/17 08:45 ABG pCO2 37.0 mmHg (35.0-45.0) 10/24/17 08:45 ABG pO2 78.0 mmHg (80.0-100.0) L 10/24/17 08:45 ABG HCO3 20.4 mmol/L (22-26) L 10/24/17 08:45 ABG O2 Saturation 95.0 % (90-100) 10/24/17 08:45 ABG Base Excess -4.7 mmol/L (-2.0-2.0) L 10/24/17 08:45 Nathan Test Na 10/24/17 08:45 A-a Gradient 132.0 mmHg 10/24/17 08:45 FiO2 36.000 10/24/17 08:45 Blood Gas Comments Jona well cs 10/24/17 08:45 Sodium 143 mmol/L (136-145) 10/24/17 07:12 Corrected Sodium 148 mmol/L (136-145) H 10/24/17 07:12 Potassium 3.8 mmol/L (3.5-5.1) 10/24/17 07:12 Chloride 108 mmol/L (98-107) H 10/24/17 07:12 Carbon Dioxide 24.1 mmol/L (21-32) 10/24/17 07:12 BUN 17 mg/dL (7-18) 10/24/17 07:12 Creatinine 2.24 mg/dL (0.55-1.02) H 10/24/17 07:12 Est GFR (MDRD) Af Amer 31 (>60) L 10/24/17 07:12 Est GFR (MDRD) Non-Af 26 (>60) L 10/24/17 07:12 Glucose 296 mg/dL (65-99) H 10/24/17 07:12 POC Glucose (mg/dL) 303 mg/dL (65-99) H 10/24/17 11:25 Lactic Acid 1.8 mmol/L (0.4-2.0) 10/24/17 09:38 Calcium 7.0 mg/dL (8.5-10.1) L 10/24/17 07:12 Corrected Calcium 8.0 mg/dL (8.5-10.1) L 10/24/17 07:12 Total Bilirubin 0.30 mg/dL (0.2-1.0) 10/24/17 07:12 AST 13 Units/L (15-37) L 10/24/17 07:12 ALT 30 Units/L (12-78) 10/24/17 07:12 Alkaline Phosphatase 79 Units/L (46-116) 10/24/17 07:12 C-Reactive Protein 11.50 mg/L (0-3.0) H 10/23/17 05:23 Total Protein 6.3 g/dL (6.4-8.2) L 10/24/17 07:12 Albumin 2.7 g/dL (3.4-5.0) L 10/24/17 07:12 Globulin 3.6 g/dL (2.5-4.5) 10/24/17 07:12 Albumin/Globulin Ratio 0.8 Ratio (1.1-2.1) L 10/24/17 07:12 Specimen Type Catherized urine 10/22/17 14:52 Urine Color Yellow (YELLOW) 10/22/17 14:52 Urine Appearance Slightly hazy (CLEAR) 10/22/17 14:52 Urine pH 6.0 (5.0 - 8.0) 10/22/17 14:52 Ur Specific [place] 1.010 (1.000-1.030) 10/22/17 14:52 Urine Protein 4+ (NEGATIVE) 10/22/17 14:52 Urine Glucose (UA) 4+ (NEGATIVE) 10/22/17 14:52 Urine Ketones Negative (NEGATIVE) 10/22/17 14:52 Urine Occult Blood 2+ (NEGATIVE) 10/22/17 14:52 Urine Nitrite Negative (NEGATIVE) 10/22/17 14:52 Urine Bilirubin Negative (NEGATIVE) 10/22/17 14:52 Urine Urobilinogen Normal (NORMAL) 10/22/17 14:52 Ur Leukocyte Esterase Negative (NEGATIVE) 10/22/17 14:52 Urine RBC 3-5 /HPF (NONE SEEN) 10/22/17 14:52 Urine WBC None seen /HPF (NONE SEEN) 10/22/17 14:52 Ur Squamous Epith Cells Rare /HPF (NEGATIVE) 10/22/17 14:52 Amorphous Sediment Trace /HPF (NEGATIVE) 10/22/17 14:52 Urine Bacteria Trace /HPF (NEGATIVE) 10/22/17 14:52 Ur Culture Indicated? No/not indicated 10/22/17 14:52 Acetone, Semi-Quant Negative (NEGATIVE) 10/23/17 20:47 - Plan (1) New onset seizure Status: Acute Plan: CT HEAD, SUPPLEMENTAL O2, ABG. REPEAT BC FROM SEPARATE SITES. CT CHEST, PRN HYDRALAZINE, CONTINUOUS CARDIAC MONITORING. IV ROCEPHIN, IV ZOSYN. FEVER CONTROL, LACTIC ACID. 1/2 NS LITER BOLUS, THEN RESUME 75CC/HR WITH REPEAT AM CXR (2) Encephalopathy, hypertensive Status: Acute Plan: SEIZURE PRECAUTIONS, BP CONTROL. SEE ABOVE (3) Fever Status: Acute (4) Hyperglycemia due to type 1 diabetes mellitus Status: Acute (5) Intractable nausea and vomiting Status: Acute (6) CAD (coronary artery disease) Status: Chronic (7) Chronic kidney disease (CKD) Status: Chronic Qualifiers: Chronic kidney disease stage: stage 3 (moderate) Qualified Code(s): N18.3 - Chronic kidney disease, stage 3 (moderate) (8) Diabetes mellitus Status: Chronic (9) History of right below knee amputation Status: Chronic (10) Hx of CABG Status: Chronic
[2017-10-24] MEDS: CELEXA PO SCH (20:44)
[2017-10-25] MEDS: MORPHINE SULFATE INJ 2 MG INJ IVP PRN ×6 (01:00→23:03)
[2017-10-25] MEDS ORDERED: NS 1/2 1000 ML IV 1,000 ML IV ONE ×2 (01:25→14:00)
[2017-10-25] MEDS: NS 1/2 1000 ML IV 1,000 ML IV SCH ×2 (01:32→14:10)
[2017-10-25] MEDS: REGLAN INJ 10 MG VIAL IVP SCH ×4 (02:07→22:55)
[2017-10-25] MEDS: NORCO 10/325 TAB PO PRN (02:08)
[2017-10-25 02:52] LABS: CKMB % 1.7 % (<4); CREATINE KINASE MB 1.2 ng/mL (0-4.0); TROPONIN I 0.05 ng/mL (0-1.5)
[2017-10-25] MEDS: ZOSYN VIAL 2.25 GM 2.25 GM in NS 100 ML IV + SPIKE MINIBAG* 100 ML IV SCH ×3 (05:39→22:26)
[2017-10-25 06:20] LABS: BASOPHILS # (AUTO) 0.1 X10^3/uL (0.0-0.1); BASOPHILS % (AUTO) 2.7 % (0.2-1.0); EOSINOPHILS # (AUTO) 0.2 x10^3/uL (0.0-0.2); EOSINOPHILS % (AUTO) 3.7 % (0.9-2.9); HEMATOCRIT 25.2 % (36.0-47.0); HEMOGLOBIN 8.5 g/dL (12.0-16.0); LYMPHOCYTES # (AUTO) 1.1 X10^3/uL (1.3-2.9); LYMPHOCYTES % (AUTO) 27.5 % (21.0-51.0); MEAN CORPUSCULAR HEMOGLOBIN 30.8 pg (27.0-34.0); MEAN CORPUSCULAR HGB CONC 33.8 g/dL (33.0-35.0); MEAN CORPUSCULAR VOLUME 91.3 fL (80.0-100.0); MEAN PLATELET VOLUME 9.9 fL (7.4-11.0); MONOCYTES # (AUTO) 0.3 x10^3/uL (0.3-0.8); MONOCYTES % (AUTO) 7.9 % (0.0-13.0); NEUTROPHILS # (AUTO) 2.3 x10^3/uL (2.2-4.8); NEUTROPHILS % (AUTO) 58.2 % (42.0-75.0); PLATELET COUNT 145 X10^3/uL (150.0-450.0); RED BLOOD COUNT 2.76 X10^6/uL (3.5-5.4); RED CELL DISTRIBUTION WIDTH 13.7 % (11.6-16.5)
[2017-10-25 06:49] LABS: ALBUMIN 2.6 g/dL (3.4-5.0); CALCIUM 6.8 mg/dL (8.5-10.1); CARBON DIOXIDE 24.1 mmol/L (21-32); COR CA(FOR HYPOALB) 7.9 mg/dL (8.5-10.1); CREATININE 2.12 mg/dL (0.55-1.02); TOTAL PROTEIN 6.2 g/dL (6.4-8.2)
[2017-10-25] MEDS: PROTONIX INJ 40 MG VIAL IVP SCH ×2 (08:39→22:19)
[2017-10-25] MEDS: PLAVIX PO SCH (08:40)
[2017-10-25] MEDS: ROCEPHIN VIAL 1 GM 1 GM in NS 100 ML IV + SPIKE MINIBAG* 100 ML IV SCH (08:40)
[2017-10-25] MEDS: LASIX PO SCH (08:40)
[2017-10-25] MEDS: LYRICA CAP 50 MG PO SCH ×2 (08:41→22:18)
[2017-10-25] MEDS: COZAAR PO SCH (08:41)
[2017-10-25] MEDS: CATAPRES TAB 0.1 MG PO SCH (08:41)
[2017-10-25] MEDS: TOPAMAX PO SCH (08:41)
[2017-10-25] MEDS: MAG-OX TAB PO SCH (08:41)
[2017-10-25] MEDS: EFFEXOR XR 75 MG CAP PO SCH (08:41)
[2017-10-25] MEDS: HumuLIN R SUBCUT PRN (11:48)
[2017-10-25] MEDS: CELEXA PO SCH (22:19)
[2017-10-26] MEDS: REGLAN INJ 10 MG VIAL IVP SCH ×2 (03:58→08:20)
[2017-10-26] MEDS ORDERED: NS 1/2 1000 ML IV 1,000 ML IV ONE (04:00)
[2017-10-26] MEDS: NS 1/2 1000 ML IV 1,000 ML IV SCH (04:01)
[2017-10-26] MEDS: PHENERGAN INJ 25 MG IV PRN (04:02)
[2017-10-26 04:45] LABS: BASOPHILS # (AUTO) 0.1 X10^3/uL (0.0-0.1); BASOPHILS % (AUTO) 1.3 % (0.2-1.0); EOSINOPHILS # (AUTO) 0.2 x10^3/uL (0.0-0.2); EOSINOPHILS % (AUTO) 4.1 % (0.9-2.9); HEMATOCRIT 24.5 % (36.0-47.0); HEMOGLOBIN 8.3 g/dL (12.0-16.0); LYMPHOCYTES % (AUTO) 25.9 % (21.0-51.0); MEAN CORPUSCULAR HEMOGLOBIN 30.9 pg (27.0-34.0); MEAN CORPUSCULAR HGB CONC 33.8 g/dL (33.0-35.0); MEAN CORPUSCULAR VOLUME 91.2 fL (80.0-100.0); MONOCYTES # (AUTO) 0.3 x10^3/uL (0.3-0.8); MONOCYTES % (AUTO) 7.1 % (0.0-13.0); NEUTROPHILS # (AUTO) 2.4 x10^3/uL (2.2-4.8); NEUTROPHILS % (AUTO) 61.6 % (42.0-75.0); PLATELET COUNT 137 X10^3/uL (150.0-450.0); RED BLOOD COUNT 2.68 X10^6/uL (3.5-5.4); RED CELL DISTRIBUTION WIDTH 13.4 % (11.6-16.5); WHITE BLOOD COUNT 3.9 X10^3/uL (3.6-10.0)
[2017-10-26 04:49] LABS: ALANINE AMINOTRANSFERASE 21 Units/L (12-78); ALBUMIN 2.6 g/dL (3.4-5.0); ALKALINE PHOSPHATASE 71 Units/L (46-116); ASPARTATE AMINO TRANSFERASE 10 Units/L (15-37); BLOOD UREA NITROGEN 17 mg/dL (7-18); CALCIUM 6.9 mg/dL (8.5-10.1); CARBON DIOXIDE 25.3 mmol/L (21-32); CHLORIDE 107 mmol/L (98-107); COR NA(FOR HYPERGLY) 142 mmol/L (136-145); CREATININE 2.13 mg/dL (0.55-1.02); SODIUM 140 mmol/L (136-145); TOTAL PROTEIN 6.1 g/dL (6.4-8.2); eGFR BLACK RACES 33 (>60); eGFR NON BLACK RACES 28 (>60)
[2017-10-26 05:44] LABS: SERUM ACETONE SMALL (NEGATIVE)
[2017-10-26] MEDS: ZOSYN VIAL 2.25 GM 2.25 GM in NS 100 ML IV + SPIKE MINIBAG* 100 ML IV SCH (06:22)
[2017-10-26] MEDS: PROTONIX INJ 40 MG VIAL IVP SCH (08:12)
[2017-10-26] MEDS: MORPHINE SULFATE INJ 2 MG INJ IVP PRN (08:12)
[2017-10-26] MEDS: EFFEXOR XR 75 MG CAP PO SCH (08:14)
[2017-10-26] MEDS: MAG-OX TAB PO SCH (08:14)
[2017-10-26] MEDS: COZAAR PO SCH (08:14)
[2017-10-26] MEDS: LASIX PO SCH (08:14)
[2017-10-26] MEDS: LYRICA CAP 50 MG PO SCH (08:14)
[2017-10-26] MEDS: CATAPRES TAB 0.1 MG PO SCH (08:14)
[2017-10-26] MEDS: PLAVIX PO SCH (08:14)
[2017-10-26] MEDS: TOPAMAX PO SCH (08:19)
[2017-10-26] MEDS: ROCEPHIN VIAL 1 GM 1 GM in NS 100 ML IV + SPIKE MINIBAG* 100 ML IV SCH (08:20)
[2017-10-26] MEDS: HumuLIN R SUBCUT PRN (11:37)
[2017-10-26 13:06] VITALS: BP 150/76
== END 2017-10-26 14:00 | disposition home or self-care (01) | DRG 638 ==
LOC: ER 14:25 → ICU 18:06
PROVIDERS: ADMIT Internal Medicine; ATTEND Internal Medicine
PROC: 05H533Z Insertion of Infusion Device into Right Subclavian Vein, Percutaneous Approach (ICD-10-PCS; principal; 2017-10-22)
PROC: 0D9670Z Drainage of Stomach with Drainage Device, Via Natural or Artificial Opening (ICD-10-PCS; 2017-10-22)
DX: E10.65 Type 1 diabetes mellitus with hyperglycemia (principal); I67.4 Hypertensive encephalopathy; R41.82 Altered mental status, unspecified; G40.89 Other seizures; R79.82 Elevated C-reactive protein (CRP); I25.10 Atherosclerotic heart disease of native coronary artery without angina pectoris; K21.9 Gastro-esophageal reflux disease without esophagitis; I10 Essential (primary) hypertension; D72.818 Other decreased white blood cell count; I87.2 Venous insufficiency (chronic) (peripheral); N18.3 Chronic kidney disease, stage 3 (moderate); R11.2 Nausea with vomiting, unspecified; Z95.1 Presence of aortocoronary bypass graft; Z89.511 Acquired absence of right leg below knee; R26.89 Other abnormalities of gait and mobility
CPT/HCPCS: 36415; 36556; 36600; 51701; 70450; 71045; 71250; 74018; 80053; 81001; 82009; 82550; 82553; 82803; 82947; 83605; 84484; 85025; 85610; 85652; 85730; 86140; 87040; 93005; 93010; 96365; 96367; 96374; 99283; 99284; A4216; A4222; C9113; Q0169; J0360; J0696; J1815; J1885; J1956; J2001; J2060; J2270; J2543; J2550; J2765

== ENCOUNTER 2017-10-28 17:38 | Emergency (ER) | payer OTHER, MEDICAID ==
[2017-10-28 17:51] VITALS: BMI 38.4
[2017-10-28 18:37] LABS: BASOPHILS # (AUTO) 0.1 X10^3/uL (0.0-0.1); BASOPHILS % (AUTO) 1.5 % (0.2-1.0); EOSINOPHILS # (AUTO) 0.1 x10^3/uL (0.0-0.2); EOSINOPHILS % (AUTO) 2.3 % (0.9-2.9); HEMATOCRIT 32.5 % (36.0-47.0); HEMOGLOBIN 10.8 g/dL (12.0-16.0); LYMPHOCYTES # (AUTO) 1.3 X10^3/uL (1.3-2.9); LYMPHOCYTES % (AUTO) 23.5 % (21.0-51.0); MEAN CORPUSCULAR HEMOGLOBIN 30.1 pg (27.0-34.0); MEAN CORPUSCULAR HGB CONC 33.3 g/dL (33.0-35.0); MEAN CORPUSCULAR VOLUME 90.3 fL (80.0-100.0); MEAN PLATELET VOLUME 9.3 fL (7.4-11.0); MONOCYTES # (AUTO) 0.3 x10^3/uL (0.3-0.8); MONOCYTES % (AUTO) 6.1 % (0.0-13.0); NEUTROPHILS # (AUTO) 3.7 x10^3/uL (2.2-4.8); NEUTROPHILS % (AUTO) 66.6 % (42.0-75.0); PLATELET COUNT 195 X10^3/uL (150.0-450.0); RED CELL DISTRIBUTION WIDTH 13.9 % (11.6-16.5); WHITE BLOOD COUNT 5.6 X10^3/uL (3.6-10.0)
[2017-10-28 18:51] LABS: ALANINE AMINOTRANSFERASE 19 Units/L (12-78); ALBUMIN 3.8 g/dL (3.4-5.0); ALKALINE PHOSPHATASE 91 Units/L (46-116); ASPARTATE AMINO TRANSFERASE 10 Units/L (15-37); BLOOD UREA NITROGEN 15 mg/dL (7-18); CALCIUM 8.8 mg/dL (8.5-10.1); CARBON DIOXIDE 23.8 mmol/L (21-32); CHLORIDE 102 mmol/L (98-107); COR NA(FOR HYPERGLY) 142 mmol/L (136-145); CREATININE 2.28 mg/dL (0.55-1.02); SODIUM 140 mmol/L (136-145); TOTAL PROTEIN 8.1 g/dL (6.4-8.2); eGFR BLACK RACES 31 (>60); eGFR NON BLACK RACES 25 (>60)
--- NOTE | 2017-10-28 19:01 | CT ---
HISTORY: Headache, hallucination Study: CT brain without contrast Comparison: October 24, 2017 Technique: Multiple axial images of the brain were obtained from the skull base to the vertex withou t administration of IV contrast. AEC was utilized. Findings: No acute intraparenchymal hemorrhage or mass can be identified. No extra-axial fluid collections are seen. No alteration in the attenuation of the brain parenchyma can be identified to suggest acute o r subacute ischemic change. The ventricular system is symmetric and nondilated. 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 Mild chronic right ethmoid sinus mucosal thickening is noted. IMPRESSION: No acute intracranial process can be identified. Reported By:
[2017-10-28 19:57] LABS: BILIRUBIN,URINE NEGATIVE (NEGATIVE); BLOOD/HEMOGLOBIN,URINE 3+ (NEGATIVE); GLUCOSE, URINE 2+ (NEGATIVE); KETONES,URINE NEGATIVE (NEGATIVE); LEUKOCYTE ESTERASE ,URINE NEGATIVE (NEGATIVE); NITRITES,URINE NEGATIVE (NEGATIVE); PROTEIN,URINE 4+ (NEGATIVE); UROBILINOGEN,URINE NORMAL (NORMAL)
[2017-10-28 20:00] LABS: APPEARANCE,URINE CLEAR (CLEAR); COLOR,URINE YELLOW (YELLOW)
[2017-10-28 20:04] LABS: BACTERIA,URINE TRACE /HPF (NEGATIVE); SQUAMOUS EPITHELIAL CELL,UR MODERATE /HPF (NEGATIVE)
--- NOTE | 2017-10-28 21:31 | DR.AMS ---
HPI - Time Seen Time seen: 21:00 - PCP Primary Care Physician: DAVID - Complaint Cheif Complaint Doctors Comments: Patient states that she has been off her medication for one week. She can not think, she wish she could kill herself. Chief Complaint:: PT. C/O VISUAL HALLUCINATIONS WHICH STARTED ON SATURDAY. PT. STATES "I SEE MY FINGERS AND ARMS FALLING OFF, MY EYES FALLING OUT." PT. C/O HEADACHE. - Source History Provided: Patient, EMS - Mode of Arrival Mode of Arrival: EMS - Timing Onset of Chief Complaint: 10/23/17 PMH - PMH Past Medical History: Yes Past Medical History: CHF, Coronary Artery Disease, Depression, Diabetes, Migraines, GERD, Headaches, Hypertension, Renal Disease Past Surgical History: Yes Surgical History: , CABG/Valve Surgery, Cholecystectomy, Ortho Surgery , Other - Family History History of Family Medical Conditions: Yes Family Medical History: Diabetes Mellitus, Cancer, [place], Sudden Cardiac , Hypertension - Social History Does patient currently use any type of tobacco product: No Have you used tobacco products in the last 12 months: No Type of Tobacco Use: None Does any household member use tobacco: No Alcohol Use: None Do you use any recreational Drugs:: No Lives With: Family Lives Where: Home - infectious screening In the last 2 months have you had wt loss of >10#?: NO Have you had fever, night sweats or hemotysis?: No Have you traveled outside the country in the last 6 months?: No Isolation: Standard ROS - Review of Systems Eyes: No Symptoms Reported ENTM: No Symptoms Reported Respiratoy: No Symptoms Reported Cardiovascular: No Symptoms Reported Gastrointestinal/Abdominal: No Symptoms Reported Genitourinary: No Symptoms Reported Neurological: No Symptoms Reported Musculoskeletal: No Symptoms Reported Integumentary: No Symptoms Reported Hematologic/Lymphatic: No Symptoms Reported Endocrine: No Symptoms Reported Psychiatric: No Symptoms Reported All Other Systems: Reviewed and Negative PE - Vitals Vital Signs: Temp Pulse Resp BP BP BP Pulse Ox 10/29/17 07:38 194/98 10/29/17 06:00 140/97 97 10/29/17 02:44 192/127 10/28/17 22:00 166/111 10/28/17 18:20 216/110 10/28/17 18:06 247/107 10/28/17 17:48 97.7 F 90 17 214/98 99 05/05/18 13:00 150/76 150/76 10/06/17 06:00 114/62 - General Limitations: Physical Limitation (BKA Left foot) - Head Head Exam: Normal Inspection - Eyes Eye exam: Normal Appearance, PERRL Pupils: Regular, Round: Bilateral - ENT ENT Exam: Normal Exam, Normal Oropharynx External Ear Exam: Normal External Inspection TM/Canal Exam: Bilateral Normal Nose Exam: Normal Nose Exam Mouth Exam: Normal Inspection Throat Exam: Normal Inspection - Neck Neck Exam: Normal Inspection, Full ROM - Chest Chest Inspection: Normal Inspection - Respiratory Respiratory Exam: Normal Lung Sounds Bilat Respiratory Exam: Bilateral Clear to Auscultation - Cardiovascular Cardiovascular Exam: Regular Rate - Abdominal Exam Abdominal Exam: Normal Inspection, Normal Bowel Sounds Abdominal Tenderness: negative: RUQ, RLQ, LUQ, LLQ, Epigastrium, Suprapubic, Diffuse, Mild, Moderate, Severe, Other - Extremities Extremities Exam: Normal Inspection, Full ROM - Back Back Exam: Normal Inspection - Neurological Neurological Exam: Alert, Oriented X3, CN II-XII Intact Cranial Nerve Exam: EOM Function (II, III, IV, ): Normal Motor Strength - LUE: 2/5 Motor Strength - RUE: 3/5 - Psychological Psychiatric Exam: Depressed, Agitated Expanded Psychiatric Exam: Poor Eye Contact - Skin Skin Exam: Warm, Dry, Intact Course - Treatment Treatment: Patient evaluated by mental health, feels patient is not suicidial was given outpatient treatment plan and to be followed by [facility] - Education/Counseling Education/Counseling: Family Educated On: Treatment, Diagnosis ROR - Labs Reviewed Result Diagrams: 10/28/17 18:30 10/28/17 18:30 Laboratory: WBC 5.6 X10^3/uL (3.6-10.0) 10/28/17 18:30 RBC 3.60 X10^6/uL (3.5-5.4) 10/28/17 18:30 Hgb 10.8 g/dL (12.0-16.0) L D 10/28/17 18:30 Hct 32.5 % (36.0-47.0) L 10/28/17 18:30 MCV 90.3 fL (80.0-100.0) 10/28/17 18:30 MCH 30.1 pg (27.0-34.0) 10/28/17 18:30 MCHC 33.3 g/dL (33.0-35.0) 10/28/17 18: RDW 13.9 % (11.6-16.5) 10/28/17 18:30 Plt Count 195 X10^3/uL (150.0-450.0) 10/28/17 18: MPV 9.3 fL (7.4-11.0) 10/28/17 18: Neut % (Auto) 66.6 % (42.0-75.0) 10/28/17: Lymph % (Auto) 23.5 % (21.0-51.0) 10/28/17: [place] % (Auto) 6.1 % (0.0-13.0) 10/28/17 18: Eos % (Auto) 2.3 % (0.9-2.9) 10/28/17: Baso % (Auto) 1.5 % (0.2-1.0) H 10/28/17 18:30 Neut # (Auto) 3.7 x10^3/uL (2.2-4.8) 10/28/17 18:30 Lymph # (Auto) 1.3 X10^3/uL (1.3-2.9) 10/28/17 18:30 [place] # (Auto) 0.3 x10^3/uL (0.3-0.8) 10/28/17 18:30 Eos # (Auto) 0.1 x10^3/uL (0.0-0.2) 10/28/17 18:30 Baso # (Auto) 0.1 X10^3/uL (0.0-0.1) 10/28/17 18:30 Absolute Nucleated RBC 0.0 /100WBC 10/28/17 18:30 Sodium 140 mmol/L (136-145) 10/28/17 18: Corrected Sodium 142 mmol/L (136-145) 10/28/17 18:30 Potassium 4.3 mmol/L (3.5-5.1) 10/28/17 18: Chloride 102 mmol/L (98-107) 10/28/17 18: Carbon Dioxide 23.8 mmol/L (21-32) 10/28/17 18:30 BUN 15 mg/dL (7-18) 10/28/17 18:30 Creatinine 2.28 mg/dL (0.55-1.02) H 10/28/17 18:30 Est GFR (MDRD) Af Amer 31 (>60) L 10/28/17 18:30 Est GFR (MDRD) Non-Af 25 (>60) L 10/28/17 18:30 Glucose 188 mg/dL (65-99) H 10/28/17 18:30 Calcium 8.8 mg/dL (8.5-10.1) 10/28/17 18:30 Corrected Calcium TNP 10/28/17 18:30 Total Bilirubin 0.40 mg/dL (0.2-1.0) 10/28/17 18:30 AST 10 Units/L (15-37) L 10/28/17 18:30 ALT 19 Units/L (12-78) 10/28/17 18:30 Alkaline Phosphatase 91 Units/L (46-116) 10/28/17 18:30 Total Protein 8.1 g/dL (6.4-8.2) 10/28/17 18:30 Albumin 3.8 g/dL (3.4-5.0) 10/28/17 18:30 Globulin 4.3 g/dL (2.5-4.5) 10/28/17 18:30 Albumin/Globulin Ratio 0.9 Ratio (1.1-2.1) L 10/28/17 18:30 Specimen Type Random urine 10/28/17 19:50 Urine Color Yellow (YELLOW) 10/28/17 19:50 Urine Appearance Clear (CLEAR) 10/28/17 19:50 Urine pH 7.0 (5.0 - 8.0) 10/28/17 19:50 Ur Specific [place] 1.005 (1.000-1.030) 10/28/17 19:50 Urine Protein 4+ (NEGATIVE) 10/28/17 19:50 Urine Glucose (UA) 2+ (NEGATIVE) 10/28/17 19:50 Urine Ketones Negative (NEGATIVE) 10/28/17 19:50 Urine Occult Blood 3+ (NEGATIVE) 10/28/17 19:50 Urine Nitrite Negative (NEGATIVE) 10/28/17 19:50 Urine Bilirubin Negative (NEGATIVE) 10/28/17 19:50 Urine Urobilinogen Normal (NORMAL) 10/28/17 19:50 Ur Leukocyte Esterase Negative (NEGATIVE) 10/28/17 19:50 Urine RBC 5-10 /HPF (NONE SEEN) 10/28/17 19:50 Urine WBC 0-2 /HPF (NONE SEEN) 10/28/17 19:50 Ur Squamous Epith Cells Moderate /HPF (NEGATIVE) 10/28/17 19:50 Urine Bacteria Trace /HPF (NEGATIVE) 10/28/17 19:50 Ur Culture Indicated? No/not indicated 10/28/17 19:50 Salicylates < 2.8 mg/dL (2.8-20) L 10/28/17 18:30 Urine Opiates Screen Negative (NEG=<300) 10/28/17 19:50 Urine Methadone Screen Negative (NEG=<300) 10/28/17 19:50 Acetaminophen 0.0 ug/mL (10-30) L 10/28/17 18:30 Ur Barbiturates Screen Negative (NEG=<200) 10/28/17 19:50 Ur Phencyclidine Scrn Negative (NEG=<25) 10/28/17 19:50 Ur Amphetamines Screen Negative (NEG=<1000) 10/28/17 19:50 U Benzodiazepines Scrn Negative (NEG=<200) 10/28/17 19:50 Urine Cocaine Screen Negative (NEG=<300) 10/28/17 19:50 U Marijuana (THC) Screen Negative (NEG=<50) 10/28/17 19:50 Ethyl Alcohol mg/dL < 3 mg/dL (0-19.9) 10/28/17 18:30 - Diagnosis Discharge Problem: Non-suicidal depressed mood - Discharge Plan Condition: Stable - Follow ups/Referrals Follow ups/Referrals: NISH HERNANDEZ [Primary Care Provider] - 3 days - Instructions
[2017-10-28] MEDS ORDERED: TORADOL 60 MG VIAL IM ONE (23:26)
[2017-10-28] MEDS ORDERED: TORADOL 60 MG VIAL ONE (23:28)
[2017-10-28 23:41] LABS: SALICYLATE < 2.8 mg/dL (2.8-20)
[2017-10-28 23:47] LABS: BLOOD ALCOHOL < 3 mg/dL (0-19.9)
[2017-10-29] MEDS ORDERED: TYLENOL #3 TAB (W/CODEINE) PO STA (06:51)
[2017-10-29] MEDS ORDERED: TYLENOL #3 TAB (W/CODEINE) PO ONE (07:37)
[2017-10-29] MEDS ORDERED: CATAPRES TAB 0.2 MG PO ONE (07:40)
[2017-10-29] MEDS ORDERED: CATAPRES TAB 0.2 MG ONE (07:44)
[2017-10-29 08:49] VITALS: BP 178/100
== END 2017-10-29 08:50 | disposition home or self-care (01) ==
LOC: ER 17:43
DX: G47.00 Insomnia, unspecified (principal); R51 Headache
CPT/HCPCS: 36415; 70450; 80053; 80307; 81001; 85025; 96372; 99282; 99285; G0434; G6038; G6039; G6040; J1885

== ENCOUNTER 2017-10-29 22:00 | Emergency (ER) | payer OTHER, MEDICAID ==
--- NOTE | 2017-10-29 22:26 | DR.GENAD ---
HPI - HPI Comment HPI Comment: EVALUATED IN ED AND REFER TO OUT PATIENT FOLLOW UP. RETURN LAST NIGHT SAYING HALUCINATIONS WERE WORSE. - Complaint/Symptoms Chief Complaint Doctors Comments: PATIENT IS COMPLAINING OF HALLUCINATIONS. - Nurses notes reviewed Nurses Notes Review: Yes - Source History Provided: Patient - Mode of Arrival Mode of Arrival: Stretcher - Timing Came on: Gradually - Duration Duration: Constant Duration: Days - Severity Severity: Moderate <KAYLEN MEZA - Last Filed: 10/30/17 08:05> - Complaint/Symptoms Chief Complaint:: Patient states that she returned to the ED because her hallucinations got worse. She denies suicidal ideations. She states that she can not go to the halfway because her check portia not be available for her child and mother to use for their care. <COURT ROJAS - Last Filed: 10/30/17 12:12> PMH - PMH Past Medical History: CHF, Coronary Artery Disease, Depression, Diabetes, Migraines, GERD, Headaches, Hypertension, Renal Disease Past Surgical History: Yes Surgical History: , CABG/Valve Surgery, Cholecystectomy, Ortho Surgery , Other - Family History Family Medical History: Diabetes Mellitus, Cancer, [place], Sudden Cardiac , Hypertension - Social History Do you use any recreational Drugs:: No <KAYLEN MEZA - Last Filed: 10/30/17 08:05> ROS - Review of Systems Constitutional: No Symptoms Reported Eyes: No Symptoms Reported ENTM: No Symptoms Reported Respiratoy: No Symptoms Reported, Short of Breath (ON EXERTION.) Cardiovascular: No Symptoms Reported Gastrointestinal/Abdominal: No Symptoms Reported Genitourinary: No Symptoms Reported. negative: Dysuria, Frequency, Hematuria Neurological: No Symptoms Reported, Headache Musculoskeletal: No Symptoms Reported, Muscle Pain Integumentary: No Symptoms Reported, Other (PRESSURE ULCER LEFT HEEL, TOES AMPUTATED LT FOOT. BKA RLE.) Hematologic/Lymphatic: No Symptoms Reported Endocrine: No Symptoms Reported Psychiatric: Hallucinations All Other Systems: Reviewed and Negative <KAYLEN MEZA - Last Filed: 10/30/17 08:05> PE - General Limitations: No Limitations General Appearance: Alert - Head Head Exam: Normal Inspection - Eyes Eye exam: Normal Appearance - ENT ENT Exam: Normal External Ear Exam External Ear Exam: Normal External Inspection TM/Canal Exam: Bilateral Normal Nose Exam: Normal Nose Exam Mouth Exam: Normal Inspection Throat Exam: Normal Inspection - Neck Neck Exam: Trachea Midline - Chest Chest Inspection: Symmetric Chest Wall Rise - Respiratory Respiratory Exam: Normal Lung Sounds Bilat Respiratory Exam: Bilateral Clear to Auscultation - Cardiovascular Cardiovascular Exam: Regular Rate, Normal Rhythm, Normal Heart Sounds - Abdominal Exam Abdominal Exam: Normal Bowel Sounds, Soft. negative: Tenderness - Back Back Exam: Normal Inspection - Neurologic Neurological Exam: Alert, Oriented X3 - Psychiatric Psychiatric Exam: Normal Affect, Normal Mood - Skin Skin Exam: Normal Color <KAYLEN MEZA - Last Filed: 10/30/17 08:05> - Vital Signs Vitals: Temperature 98.4 F Pulse Rate [Left Brachial] 102 Pulse Rate 73 Respiratory Rate 20 Blood Pressure [Left Arm] 210/111 Blood Pressure [Right Arm] 178/100 Blood Pressure 177/102 O2 Sat by Pulse Oximetry 96 MDM - Additional Information Additional Information Obtained From: Family - Differential Diagnosis Differential Diagnosis: HALLUCINATIONS, DEPRESSION <KAYLEN MEZA - Last Filed: 10/30/17 08:05> Course - Treatment Treatment: SEE ORDERS. - Education/Counseling Education/Counseling: Patient Educated On: Diagnosis <KAYLEN MEZA - Last Filed: 10/30/17 08:05> ROR - Labs Reviewed Laboratory Results Reviewed?: Yes Result Diagrams: 10/29/17 22:41 10/29/17 22:41 <KAYLEN MEZA - Last Filed: 10/30/17 08:05> - Labs Reviewed Result Diagrams: 10/29/17 22:41 10/29/17 22:41 <COURT ROJAS - Last Filed: 10/30/17 12:12> - Labs Reviewed Laboratory: WBC 7.7 X10^3/uL (3.6-10.0) 10/29/17 22:41 RBC 3.81 X10^6/uL (3.5-5.4) 10/29/17 22:41 Hgb 11.5 g/dL (12.0-16.0) L 10/29/17 22:41 Hct 34.7 % (36.0-47.0) L 10/29/17 22:41 MCV 90.9 fL (80.0-100.0) 10/29/17 22:41 MCH 30.1 pg (27.0-34.0) 10/29/17 22:41 MCHC 33.1 g/dL (33.0-35.0) 10/29/17 22:41 RDW 14.2 % (11.6-16.5) 10/29/17 22:41 Plt Count 236 X10^3/uL (150.0-450.0) 10/29/17 22:41 MPV 9.4 fL (7.4-11.0) 10/29/17 22:41 Neut % (Auto) 67.6 % (42.0-75.0) 10/29/17 22:41 Lymph % (Auto) 20.9 % (21.0-51.0) L 10/29/17 22:41 [place] % (Auto) 7.8 % (0.0-13.0) 10/29/17 22:41 Eos % (Auto) 2.5 % (0.9-2.9) 10/29/17 22:41 Baso % (Auto) 1.2 % (0.2-1.0) H 10/29/17 22:41 Neut # (Auto) 5.2 x10^3/uL (2.2-4.8) H 10/29/17 22:41 Lymph # (Auto) 1.6 X10^3/uL (1.3-2.9) 10/29/17 22:41 [place] # (Auto) 0.6 x10^3/uL (0.3-0.8) 10/29/17 22:41 Eos # (Auto) 0.2 x10^3/uL (0.0-0.2) 10/29/17 22:41 Baso # (Auto) 0.1 X10^3/uL (0.0-0.1) 10/29/17 22:41 Absolute Nucleated RBC 0.0 /100WBC 10/29/17 22:41 Sodium 141 mmol/L (136-145) 10/29/17 22:41 Corrected Sodium TNP 10/29/17 22:41 Potassium 3.4 mmol/L (3.5-5.1) L 10/29/17 22:41 Chloride 104 mmol/L (98-107) 10/29/17 22:41 Carbon Dioxide 24.5 mmol/L (21-32) 10/29/17 22:41 BUN 20 mg/dL (7-18) H 10/29/17 22:41 Creatinine 2.64 mg/dL (0.55-1.02) H 10/29/17 22:41 Est GFR (MDRD) Af Amer 26 (>60) L 10/29/17 22:41 Est GFR (MDRD) Non-Af 22 (>60) L 10/29/17 22:41 Glucose 63 mg/dL (65-99) L 10/29/17 22:41 Calcium 9.1 mg/dL (8.5-10.1) 10/29/17 22:41 Corrected Calcium TNP 10/29/17 22:41 Total Bilirubin 0.50 mg/dL (0.2-1.0) 10/29/17 22:41 AST 13 Units/L (15-37) L 10/29/17 22:41 ALT 20 Units/L (12-78) 10/29/17 22:41 Alkaline Phosphatase 95 Units/L (46-116) 10/29/17 22:41 Total Protein 8.4 g/dL (6.4-8.2) H 10/29/17 22:41 Albumin 4.1 g/dL (3.4-5.0) 10/29/17 22:41 Globulin 4.3 g/dL (2.5-4.5) 10/29/17 22:41 Albumin/Globulin Ratio 1.0 Ratio (1.1-2.1) L 10/29/17 22:41 Urine Opiates Screen Positive (NEG=<300) A 10/30/17 01:05 Urine Methadone Screen Negative (NEG=<300) 10/30/17 01:05 Ur Barbiturates Screen Negative (NEG=<200) 10/30/17 01:05 Ur Phencyclidine Scrn Negative (NEG=<25) 10/30/17 01:05 Ur Amphetamines Screen Negative (NEG=<1000) 10/30/17 01:05 U Benzodiazepines Scrn Negative (NEG=<200) 10/30/17 01:05 Urine Cocaine Screen Negative (NEG=<300) 10/30/17 01:05 U Marijuana (THC) Screen Negative (NEG=<50) 10/30/17 01:05 <KAYLEN MEZA - Last Filed: 10/30/17 08:05> <COURT ROJAS - Last Filed: 10/30/17 12:12> - Diagnosis Discharge Problem: Hallucination, Hallucination, visual Depression Qualifiers: Depression Type: unspecified Qualified Code(s): F32.9 - Major depressive disorder, single episode, unspecified - Discharge Plan Condition: Stable - Follow ups/Referrals Follow ups/Referrals: [facility],None [Primary Care Provider] - 3 days - Instructions
[2017-10-29 22:34] VITALS: BMI 38.4
[2017-10-29 22:51] LABS: BASOPHILS # (AUTO) 0.1 X10^3/uL (0.0-0.1); BASOPHILS % (AUTO) 1.2 % (0.2-1.0); EOSINOPHILS # (AUTO) 0.2 x10^3/uL (0.0-0.2); EOSINOPHILS % (AUTO) 2.5 % (0.9-2.9); HEMATOCRIT 34.7 % (36.0-47.0); HEMOGLOBIN 11.5 g/dL (12.0-16.0); LYMPHOCYTES # (AUTO) 1.6 X10^3/uL (1.3-2.9); LYMPHOCYTES % (AUTO) 20.9 % (21.0-51.0); MEAN CORPUSCULAR HEMOGLOBIN 30.1 pg (27.0-34.0); MEAN CORPUSCULAR HGB CONC 33.1 g/dL (33.0-35.0); MEAN CORPUSCULAR VOLUME 90.9 fL (80.0-100.0); MEAN PLATELET VOLUME 9.4 fL (7.4-11.0); MONOCYTES # (AUTO) 0.6 x10^3/uL (0.3-0.8); MONOCYTES % (AUTO) 7.8 % (0.0-13.0); NEUTROPHILS # (AUTO) 5.2 x10^3/uL (2.2-4.8); NEUTROPHILS % (AUTO) 67.6 % (42.0-75.0); PLATELET COUNT 236 X10^3/uL (150.0-450.0); RED BLOOD COUNT 3.81 X10^6/uL (3.5-5.4); RED CELL DISTRIBUTION WIDTH 14.2 % (11.6-16.5); WHITE BLOOD COUNT 7.7 X10^3/uL (3.6-10.0)
[2017-10-29 23:01] LABS: ALANINE AMINOTRANSFERASE 20 Units/L (12-78); ALBUMIN 4.1 g/dL (3.4-5.0); ALKALINE PHOSPHATASE 95 Units/L (46-116); ASPARTATE AMINO TRANSFERASE 13 Units/L (15-37); BLOOD UREA NITROGEN 20 mg/dL (7-18); CALCIUM 9.1 mg/dL (8.5-10.1); CARBON DIOXIDE 24.5 mmol/L (21-32); CHLORIDE 104 mmol/L (98-107); CREATININE 2.64 mg/dL (0.55-1.02); SODIUM 141 mmol/L (136-145); TOTAL PROTEIN 8.4 g/dL (6.4-8.2); eGFR BLACK RACES 26 (>60); eGFR NON BLACK RACES 22 (>60)
[2017-10-29] MEDS ORDERED: K-LYTE EFFERVESCENT PO ONE (23:35)
[2017-10-30] MEDS ORDERED: K-LYTE EFFERVESCENT ONE (01:55)
[2017-10-30 03:58] VITALS: BP 210/111
== END 2017-10-30 13:54 | disposition home or self-care (01) ==
LOC: ER 22:00
DX: R44.1 Visual hallucinations (principal); F32.9 Major depressive disorder, single episode, unspecified
CPT/HCPCS: 36415; 80053; 80307; 85025; 99283; G0434

== ENCOUNTER 2018-02-20 12:53 | Inpatient (IN) ==
[2018-02-20] MEDS ORDERED: DUONEB 0.5 MG/3 MG ONE (13:15)
--- NOTE | 2018-02-20 13:42 | DR.URIAD ---
HPI Time Seen Time Seen by Provider: 02/20/18 12:57 PCP Primary Care Physician: waldron Complaint Chief Complaint Doctors Comments: SOB X 3 days. No cough or chest pain Chief Complaint:: ems stated that home health nurse was at the patients home and stated she has been short of breath and running a low grade fever and she thought she mat have pneumonia Self Treatment fo Chief Complaint: none Reviewed Nurses Notes Reviewed: Yes Source History Provided: Patient Mode of Arrival Mode of Arrival: Ambulatory Timing Onset of Chief Complaint: 02/06/18 PMH PMH Past Medical History: Yes Past Medical History: CHF, Coronary Artery Disease, Depression, Diabetes, Migraines, GERD, Headaches, Hypertension and Renal Disease Past Surgical History: Yes Surgical History: , CABG/Valve Surgery, Cholecystectomy, Ortho Surgery and Other Family History History of Family Medical Conditions: Yes Family Medical History: Diabetes Mellitus, Cancer, [place], Sudden Cardiac and Hypertension Social History Does patient currently use any type of tobacco product: No Have you used tobacco products in the last 12 months: No Type of Tobacco Use: None Does any household member use tobacco: No Alcohol Use: None Do you use any recreational Drugs:: No Lives With: Family Lives Where: Home infectious screening In the last 2 months have you had wt loss of >10#?: NO Have you had fever, night sweats or hemotysis?: No Have you traveled outside the country in the last 6 months?: No Isolation: Standard ROS Review of Systems Constitutional: No Symptoms Reported Eyes: No Symptoms Reported ENTM: No Symptoms Reported Respiratoy: Short of Breath Cardiovascular: No Symptoms Reported Gastrointestinal/Abdominal: No Symptoms Reported Genitourinary: No Symptoms Reported Neurological: No Symptoms Reported Musculoskeletal: No Symptoms Reported Integumentary: No Symptoms Reported Hematologic/Lymphatic: No Symptoms Reported Endocrine: No Symptoms Reported Psychiatric: No Symptoms Reported All Other Systems: Reviewed and Negative PE Vital Signs Vitals: Temperature 98.6 F Pulse Rate [Left Brachial] 66 Pulse Rate 68 Respiratory Rate 16 Blood Pressure [Left Arm] 121/67 Blood Pressure [Right Arm] 178/100 Blood Pressure 118/58 O2 Sat by Pulse Oximetry 95 General Limitations: No Limitations General Appearance: Alert and In No Apparent Distress Head Head Exam: Normal Inspection Eyes Eye exam: Normal Appearance, PERRL and EOMI ENT ENT Exam: Normal Exam and Normal Oropharynx Nasal Speculum Exam: Bilateral: Other (nasal exam passage is clear but she has opening/closing valve sounds) Mouth Exam: Normal Inspection Neck Neck Exam: Normal Inspection and Full ROM Chest Chest Inspection: Normal Inspection Respiratory Respiratory Exam: Normal Lung Sounds Bilat Cardiovascular Cardiovascular Exam: Regular Rate, Normal Rhythm, +S1 and +S2 Abdominal Exam Abdominal Exam: Normal Inspection, Normal Bowel Sounds and Soft Extremeties Extremities Exam: Other (She is BKA on the RLE and a trans-metatarsal on the LLE.) Back Back Exam: Normal Inspection Neurologic Neurological Exam: Alert and Oriented X3 Psychiatric Psychiatric Exam: Normal Affect and Normal Mood Skin Skin Exam: Warm and Dry COURSE Reevaluation 1st: Improved Education/Counseling Education/Counseling: Patient, Family and Education Educated On: Treatment, Diagnosis, Prognosis and Needs for Follow Up ROR Labs Reviewed Laboratory Results Reviewed?: Yes Result Diagrams: 02/20/18 14:25 02/20/18 14:25 Laboratory: WBC 3.9 X10^3/uL (3.6-10.0) 02/20/18 14:25 RBC 2.77 X10^6/uL (3.5-5.4) L 02/20/18 14:25 Hgb 9.6 g/dL (12.0-16.0) L 02/20/18 14:25 Hct 26.3 % (36.0-47.0) L 02/20/18 14:25 MCV 94.7 fL (80.0-100.0) 02/20/18 14:25 MCH 34.6 pg (27.0-34.0) H 02/20/18 14:25 MCHC 36.5 g/dL (33.0-35.0) H 02/20/18 14:25 RDW 15.0 % (11.6-16.5) 02/20/18 14:25 Plt Count 188 X10^3/uL (150.0-450.0) 02/20/18 14:25 MPV 9.6 fL (7.4-11.0) 02/20/18 14:25 Neut % (Auto) 57.9 % (42.0-75.0) 02/20/18 14:25 Lymph % (Auto) 30.5 % (21.0-51.0) 02/20/18 14:25 [place] % (Auto) 5.0 % (0.0-13.0) 02/20/18 14:25 Eos % (Auto) 4.0 % (0.9-2.9) H 02/20/18 14:25 Baso % (Auto) 2.6 % (0.2-1.0) H 02/20/18 14:25 Neut # (Auto) 2.3 x10^3/uL (2.2-4.8) 02/20/18 14:25 Lymph # (Auto) 1.2 X10^3/uL (1.3-2.9) L 02/20/18 14:25 [place] # (Auto) 0.2 x10^3/uL (0.3-0.8) L 02/20/18 14:25 Eos # (Auto) 0.2 x10^3/uL (0.0-0.2) 02/20/18 14:25 Baso # (Auto) 0.1 X10^3/uL (0.0-0.1) 02/20/18 14:25 Absolute Nucleated RBC 0.1 /100WBC 02/20/18 14:25 Sodium 129 mmol/L (136-145) L 02/20/18 14:25 Corrected Sodium 141 mmol/L (136-145) 02/20/18 14:25 Potassium 5.0 mmol/L (3.5-5.1) 02/20/18 14:25 Chloride 98 mmol/L (98-107) 02/20/18 14:25 Carbon Dioxide 19.2 mmol/L (21-32) L 02/20/18 14:25 BUN 49 mg/dL (7-18) H 02/20/18 14:25 Creatinine 1.84 mg/dL (0.55-1.02) H 02/20/18 14:25 Est GFR (MDRD) Af Amer 39 (>60) L 02/20/18 14:25 Est GFR (MDRD) Non-Af 33 (>60) L 02/20/18 14:25 Glucose 588 mg/dL (65-99) H* 02/20/18 14:25 POC Glucose (mg/dL) 449 mg/dL (65-99) 02/20/18 17:16 Calcium 8.5 mg/dL (8.5-10.1) 02/20/18 14:25 Corrected Calcium 9.8 mg/dL (8.5-10.1) 02/20/18 14:25 Total Bilirubin 0.40 mg/dL (0.2-1.0) 02/20/18 14:25 AST Units/L (15-37) 02/20/18 14:25 ALT Units/L (12-78) 02/20/18 14:25 Alkaline Phosphatase 96 Units/L (46-116) 02/20/18 14:25 Total Protein 6.6 g/dL (6.4-8.2) 02/20/18 14:25 Albumin 2.4 g/dL (3.4-5.0) L 02/20/18 14:25 Globulin 4.2 g/dL (2.5-4.5) 02/20/18 14:25 Albumin/Globulin Ratio 0.6 Ratio (1.1-2.1) L 02/20/18 14:25 Acetone, Semi-Quant Small (NEGATIVE) H 02/20/18 14:25 XRAY XRAY Interpreted by: Radiologist XRAY Findings: Normal Diagnosis Discharge Problem: Uncontrolled diabetes mellitus, DKA, type 1, Hyponatremia, CKD (chronic kidney disease) stage 4, GFR 15-29 ml/min, Anemia due to chronic kidney disease
[2018-02-20] MEDS ORDERED: DUONEB 0.5 MG/3 MG NEB ONE (14:07)
[2018-02-20 14:41] LABS: BASOPHILS # (AUTO) 0.1 X10^3/uL (0.0-0.1); BASOPHILS % (AUTO) 2.6 % (0.2-1.0); EOSINOPHILS # (AUTO) 0.2 x10^3/uL (0.0-0.2); HEMATOCRIT 26.3 % (36.0-47.0); HEMOGLOBIN 9.6 g/dL (12.0-16.0); LYMPHOCYTES # (AUTO) 1.2 X10^3/uL (1.3-2.9); LYMPHOCYTES % (AUTO) 30.5 % (21.0-51.0); MEAN CORPUSCULAR HEMOGLOBIN 34.6 pg (27.0-34.0); MEAN CORPUSCULAR HGB CONC 36.5 g/dL (33.0-35.0); MEAN CORPUSCULAR VOLUME 94.7 fL (80.0-100.0); MEAN PLATELET VOLUME 9.6 fL (7.4-11.0); MONOCYTES # (AUTO) 0.2 x10^3/uL (0.3-0.8); NEUTROPHILS # (AUTO) 2.3 x10^3/uL (2.2-4.8); NEUTROPHILS % (AUTO) 57.9 % (42.0-75.0); PLATELET COUNT 188 X10^3/uL (150.0-450.0); RED BLOOD COUNT 2.77 X10^6/uL (3.5-5.4); WHITE BLOOD COUNT 3.9 X10^3/uL (3.6-10.0)
--- NOTE | 2018-02-20 14:57 | RAD ---
Indication: Shortness of breath Exam: Portable chest Comparison: 10/24/2017 Findings: The heart is normal. The pulmonary vessels are normal. Postop changes are seen along the me diastinum and sternum. No consolidation or effusion is seen. The bones are intact. Impression: Stable chest with no acute abnormality seen. Reported By:
[2018-02-20 15:08] LABS: ALBUMIN 2.4 g/dL (3.4-5.0); CARBON DIOXIDE 19.2 mmol/L (21-32)
[2018-02-20 15:50] LABS: CALCIUM 8.5 mg/dL (8.5-10.1); COR CA(FOR HYPOALB) 9.8 mg/dL (8.5-10.1)
[2018-02-20 15:52] LABS: CREATININE 1.84 mg/dL (0.55-1.02); TOTAL PROTEIN 6.6 g/dL (6.4-8.2)
[2018-02-20] MEDS ORDERED: HumuLIN R SUBCUT ONE ×3 (16:27→20:47)
[2018-02-20] MEDS ORDERED: NORCO 10/325 TAB PO ONE (17:08)
[2018-02-20] MEDS: NS 1000 ML 1,000 ML IV SCH (17:08)
[2018-02-20] MEDS ORDERED: NORCO 10/325 TAB ONE (17:13)
[2018-02-20] MEDS ORDERED: HumuLIN R ONE (17:20)
[2018-02-20] MEDS: SNACK - Diabetic Appropriate PO SCH (20:27)
[2018-02-20] MEDS: HumuLIN R SUBCUT PRN (23:51)
[2018-02-20] MEDS: NORCO 5/325 MG TAB PO PRN (23:52)
[2018-02-21] MEDS: NS 1000 ML 1,000 ML IV SCH ×2 (01:52→10:37)
[2018-02-21 05:21] LABS: EOSINOPHILS # (AUTO) 0.2 x10^3/uL (0.0-0.2); EOSINOPHILS % (AUTO) 5.2 % (0.9-2.9); HEMATOCRIT 24.2 % (36.0-47.0); HEMOGLOBIN 8.5 g/dL (12.0-16.0); LYMPHOCYTES # (AUTO) 1.6 X10^3/uL (1.3-2.9); LYMPHOCYTES % (AUTO) 36.2 % (21.0-51.0); MEAN CORPUSCULAR HEMOGLOBIN 32.2 pg (27.0-34.0); MEAN CORPUSCULAR HGB CONC 35.1 g/dL (33.0-35.0); MEAN CORPUSCULAR VOLUME 91.8 fL (80.0-100.0); MEAN PLATELET VOLUME 9.4 fL (7.4-11.0); MONOCYTES # (AUTO) 0.4 x10^3/uL (0.3-0.8); NEUTROPHILS # (AUTO) 2.2 x10^3/uL (2.2-4.8); NEUTROPHILS % (AUTO) 49.6 % (42.0-75.0); PLATELET COUNT 193 X10^3/uL (150.0-450.0); RED BLOOD COUNT 2.64 X10^6/uL (3.5-5.4); RED CELL DISTRIBUTION WIDTH 15.1 % (11.6-16.5); WHITE BLOOD COUNT 4.4 X10^3/uL (3.6-10.0)
[2018-02-21] MEDS: HumuLIN R SUBCUT PRN ×4 (05:35→20:40)
[2018-02-21] MEDS: NORCO 5/325 MG TAB PO PRN (05:36)
[2018-02-21 06:17] LABS: ALBUMIN 2.3 g/dL (3.4-5.0); CALCIUM 8.5 mg/dL (8.5-10.1); CARBON DIOXIDE 24.5 mmol/L (21-32); COR CA(FOR HYPOALB) 9.9 mg/dL (8.5-10.1); CREATININE 1.96 mg/dL (0.55-1.02); TOTAL PROTEIN 6.1 g/dL (6.4-8.2)
[2018-02-21 07:22] LABS: ALANINE AMINOTRANSFERASE 19.2 Units/L (12-78); ASPARTATE AMINO TRANSFERASE 10.8 Units/L (15-37)
[2018-02-21] MEDS ORDERED: VENLAFAXINE HCL PO SCH (09:00)
[2018-02-21] MEDS ORDERED: PROTONIX TAB 40 MG PO SCH (09:00)
[2018-02-21] MEDS: LIPITOR TAB 20 MG PO SCH (10:37)
[2018-02-21] MEDS: LOPRESSOR TAB 50 MG PO SCH ×2 (10:37→20:39)
[2018-02-21] MEDS: PLAVIX PO SCH (10:37)
[2018-02-21] MEDS: COZAAR PO SCH (10:37)
[2018-02-21] MEDS: TOPAMAX PO SCH (10:38)
[2018-02-21] MEDS: NORCO 10/325 TAB PO PRN (10:46)
[2018-02-21] MEDS: EFFEXOR XR 75 MG CAP PO SCH (10:46)
[2018-02-21] MEDS: REGLAN TAB 10 MG PO SCH ×3 (11:55→20:39)
[2018-02-21] MEDS: ZOFRAN INJ 4 MG VIAL IVP PRN ×2 (11:56→20:36)
[2018-02-21] MEDS: DUONEB 0.5 MG/3 MG NEB SCH ×2 (12:31→17:35)
[2018-02-21 12:33] LABS: ABG BASE EXCESS -5.4 mmol/L (-2.0-2.0); ABG HCO3 20.6 mmol/L (22-26)
[2018-02-21] MEDS: PHENERGAN INJ 25 MG IV PRN (16:06)
--- NOTE | 2018-02-21 18:07 | DR.H&P ---
H&P - History & Physical for Day of: H&P Date: 02/20/18 - Chief Complaint Chief Complaint: CCC, FEVER, WHEEZING, SOB - History of Present Illness History of Present Illness: 37 WF ER ADMISSION AFTER PRESENTING WITH EMS CO SOB , CCC FEVER AND WHEEZING. PT STATES HER SON WAS RECENTLY SICK WITH URI, THEN SHE BEGAN WITH CCC, PROGRESS TO FEVER, COUGH WITH WHEEZING AND SOB. PT HAS PMH OF CAD, HTN, DM, CRF, OA, IRMA. PT EVALUATED IN ER, ADMITTED FOR TREATMENT OF ACUTE RESPIRATORY ILLNESS, SOB. - Past Medical History Past Medical History: Anxiety, Arthritis, CHF, Coronary Artery Disease, Depression, Diabetes, Migraines, GERD, Headaches, Hypertension, Renal Disease - Past Surgical History Surgical History: CABG/Valve Surgery, Cholecystectomy, , Ortho Surgery , Other - Family History Family Medical History: Diabetes Mellitus, Cancer, [place], Sudden Cardiac , Hypertension - Social History Does patient currently use any type of tobacco product: No Have you used tobacco products in the last 12 months: No Type of Tobacco Use: None Does any household member use tobacco: No Alcohol Use: None Drug Use: None - Medications Home Medications: No Known Drug Allergies Allergy (Verified 02/20/18 12:54) CONTINUE taking the following medications aspirin 325 mg PO DAILY 02/20/18 [History] atorvastatin 20 mg PO DAILY 02/20/18 [History] metoprolol tartrate 25 mg PO BID 02/20/18 [History] - Review of Systems Constitutional: Fever, Chills, Sweats, Weakness Eyes: No Symptoms Reported ENT: Nose Discharge, Nose Congestion, Throat Pain, Throat Swelling Respiratory: Cough, Shortness of Breath, Sputum, Wheezing Cardiovascular: No Symptoms Reported. denies: Edema Gastrointestinal: Nausea Genitourinary: No Symptoms Reported Musculoskeletal: Back Pain, Leg Pain Skin: No Symptoms Reported Neurological: No Symptoms Reported - Physical Exam Vital Signs: Temperature 99.1 F Pulse Rate [Left Brachial] 67 Pulse Rate 67 Respiratory Rate 18 Blood Pressure [Left Arm] 139/80 Blood Pressure [Right Arm] 178/100 Blood Pressure 118/58 O2 Sat by Pulse Oximetry 93 Oriented: Normal Eyes: Blurred Vision (CHRONIC) Ear: Normal Nose: Discharge Throat: Red, Dry Respiratory: Rhonchi Throughout, Wheezes Throughout Cardiovascular: Tachycardia. negative: Edema : Normal Auscultation: Bowel Sounds: Normal Palpation: Normal Tenderness: Normal Skin: Decreased [place]urgur Musculoskeletal: Deformity, Motor Deficit, Sensory Deficit Psychiatric: Anxiety Affect: Anxious Speech Pattern: Clear, Appropriate - Assessment/Plan (1) SOB (shortness of breath) Status: Acute Plan: ADMIT, RESP CONSULT. IV ATBX, BLOOD PRESSURE AND BLOOD SUGAR CONTROL. ANTI TUSSIVES, PAIN CONTROL. SSI, VERIFY HOME MEDS. CXR ON ADMISSION, ABG, ACETONE. I & OS, SPUTUM CULTURE (2) Acute bronchitis Status: Acute (3) Anemia due to chronic kidney disease Qualifiers: Chronic kidney disease stage: stage 4 (severe) Qualified Code(s): N18.4 - Chronic kidney disease, stage 4 (severe); D63.1 - Anemia in chronic kidney disease Status: Acute (4) Diabetes mellitus type 1 Qualifiers: Status: Chronic (5) Hypertension Status: Chronic (6) History of right below knee amputation Status: Chronic (7) CAD (coronary artery disease) Status: Chronic (8) Arthritis Status: Chronic - Allergies Allergies/Adverse Reactions: Allergies Allergy/AdvReac Type Severity Reaction Status Date / Time No Known Drug Allergies Allergy Verified 02/20/18 12:54
--- NOTE | 2018-02-21 18:10 | PCM.PROG ---
Progress Note - Progress Note for Day of Date of Exam: 02/21/18 - Subjective Subjective: 37 WF ER ADMISSION ON 02/20 WITH RESP DISTRESS, ACUTE BRONCHITIS. PT CURRENTLY ON IV ATBX, RESP THERAPY, ABG THIS AM. BLOOD SUGAR CONTROL WITH SSI. PT CO INCREASED NAUSEA, ANTIEMENTICS TREATMENT. SPUTUM CULTURE ORDERED, ADD BUDESONIDE TO NEBS, SUPPLEMENTAL O2. AM CXR, FLU SWAB - Past Medical Family Social History Past Med/Fam/Surg Hx: No changes since H&P Allergies: Allergies No Known Drug Allergies Allergy (Verified 02/20/18 12:54) - Review of Systems ROS: No change since H&P - Vital Signs and I&O's Vital Signs: Temperature 99.1 F Pulse Rate [Left Brachial] 67 Pulse Rate 67 Respiratory Rate 18 Blood Pressure [Left Arm] 139/80 Blood Pressure [Right Arm] 178/100 Blood Pressure 118/58 O2 Sat by Pulse Oximetry 93 Intake and Output: Intake & Output 02/19/18 02/20/18 02/21/18 02/22/18 11:59 11:59 11:59 11:59 Intake Total 1919 / 1919 715 / 715 Balance 1919 715 / 715 - Physical Exam Oriented: Normal Eyes: Blurred Vision (CHRONIC) Ear: Normal Nose: Discharge Throat: Red, Dry Respiratory: Wheezes Cardiovascular: Tachycardia. negative: Edema : Normal Auscultation: Bowel Sounds: Normal Tenderness: Normal Skin: Decreased Turgur Musculoskeletal: Deformity, Motor Deficit, Sensory Deficit Psychiatric: Anxiety Affect: Anxious Speech Pattern: Clear, Appropriate - Laboratory and Diagnostics Result Diagrams: 02/21/18 05:00 02/21/18 05:00 Labs: Laboratory WBC 4.4 X10^3/uL (3.6-10.0) 02/21/18 05:00 RBC 2.64 X10^6/uL (3.5-5.4) L 02/21/18 05:00 Hgb 8.5 g/dL (12.0-16.0) L 02/21/18 05:00 Hct 24.2 % (36.0-47.0) L 02/21/18 05:00 MCV 91.8 fL (80.0-100.0) 02/21/18 05:00 MCH 32.2 pg (27.0-34.0) 02/21/18 05:00 MCHC 35.1 g/dL (33.0-35.0) H 02/21/18 05:00 RDW 15.1 % (11.6-16.5) 02/21/18 05:00 Plt Count 193 X10^3/uL (150.0-450.0) 02/21/18 05:00 MPV 9.4 fL (7.4-11.0) 02/21/18 05:00 Neut % (Auto) 49.6 % (42.0-75.0) 02/21/18 05:00 Lymph % (Auto) 36.2 % (21.0-51.0) 02/21/18 05:00 [place] % (Auto) 8.0 % (0.0-13.0) 02/21/18 05:00 Eos % (Auto) 5.2 % (0.9-2.9) H 02/21/18 05:00 Baso % (Auto) 1.0 % (0.2-1.0) 02/21/18 05:00 Neut # (Auto) 2.2 x10^3/uL (2.2-4.8) 02/21/18 05:00 Lymph # (Auto) 1.6 X10^3/uL (1.3-2.9) 02/21/18 05:00 [place] # (Auto) 0.4 x10^3/uL (0.3-0.8) 02/21/18 05:00 Eos # (Auto) 0.2 x10^3/uL (0.0-0.2) 02/21/18 05:00 Baso # (Auto) 0.0 X10^3/uL (0.0-0.1) 02/21/18 05:00 Absolute Nucleated RBC 0.2 /100WBC 02/21/18 05:00 Sample Site Rbr 02/21/18 12:16 ABG pH 7.310 (7.35-7.45) L 02/21/18 12:16 ABG pCO2 41.0 mmHg (35.0-45.0) 02/21/18 12:16 ABG pO2 70.0 mmHg (80.0-100.0) L 02/21/18 12:16 ABG HCO3 20.6 mmol/L (22-26) L 02/21/18 12:16 ABG O2 Saturation 92.0 % (90-100) 02/21/18 12:16 ABG Base Excess -5.4 mmol/L (-2.0-2.0) L 02/21/18 12:16 Nathan Test Na 02/21/18 12:16 A-a Gradient 28.0 mmHg 02/21/18 12:16 FiO2 21.000 02/21/18 12:16 Blood Gas Comments Jona well gb 02/21/18 12:16 Sodium 138 mmol/L (136-145) 02/21/18 05:00 Corrected Sodium 141 mmol/L (136-145) 02/21/18 05:00 Potassium 4.7 mmol/L (3.5-5.1) 02/21/18 05:00 Chloride 107 mmol/L (98-107) 02/21/18 05:00 Carbon Dioxide 24.5 mmol/L (21-32) 02/21/18 05:00 BUN 46 mg/dL (7-18) H 02/21/18 05:00 Creatinine 1.96 mg/dL (0.55-1.02) H 02/21/18 05:00 Est GFR (MDRD) Af Amer 37 (>60) L 02/21/18 05:00 Est GFR (MDRD) Non-Af 30 (>60) L 02/21/18 05:00 Glucose 231 mg/dL (65-99) H 02/21/18 05:00 POC Glucose (mg/dL) 324 mg/dL (65-99) H 02/21/18 16:53 Calcium 8.5 mg/dL (8.5-10.1) 02/21/18 05:00 Corrected Calcium 9.9 mg/dL (8.5-10.1) 02/21/18 05:00 Total Bilirubin 0.20 mg/dL (0.2-1.0) 02/21/18 05:00 AST 10.8 Units/L (15-37) L 02/21/18 05:00 ALT 19.2 Units/L (12-78) 02/21/18 05:00 Alkaline Phosphatase 73 Units/L (46-116) 02/21/18 05:00 Total Protein 6.1 g/dL (6.4-8.2) L 02/21/18 05:00 Albumin 2.3 g/dL (3.4-5.0) L 02/21/18 05:00 Globulin 3.8 g/dL (2.5-4.5) 02/21/18 05:00 Albumin/Globulin Ratio 0.6 Ratio (1.1-2.1) L 02/21/18 05:00 Acetone, Semi-Quant Negative (NEGATIVE) 02/21/18 05:00 - Plan (1) SOB (shortness of breath) Status: Acute Plan: CONTINUE RESP CONSULT. IV ATBX, BLOOD PRESSURE AND BLOOD SUGAR CONTROL. ANTI TUSSIVES, PAIN CONTROL. SSI, ANTIEMENTICS TREATMENT. SPUTUM CULTURE ORDERED, ADD BUDESONIDE TO NEBS, SUPPLEMENTAL O2. AM CXR, FLU SWAB. AM CXR, ADMISSION ABG, REPEAT ACETONE. I & OS, SPUTUM CULTURE (2) Acute bronchitis Status: Acute (3) Anemia due to chronic kidney disease Status: Acute Qualifiers: Chronic kidney disease stage: stage 4 (severe) Qualified Code(s): N18.4 - Chronic kidney disease, stage 4 (severe); D63.1 - Anemia in chronic kidney disease (4) Diabetes mellitus type 1 Status: Chronic Qualifiers: (5) Hypertension Status: Chronic (6) History of right below knee amputation Status: Chronic (7) CAD (coronary artery disease) Status: Chronic (8) Arthritis Status: Chronic
[2018-02-21] MEDS ORDERED: SNACK - Diabetic Appropriate PO SCH ×2 (20:00)
[2018-02-21] MEDS: MORPHINE SULFATE INJ 2 MG INJ IVP PRN (20:39)
[2018-02-21] MEDS: CELEXA PO SCH (20:39)
[2018-02-21] MEDS: SNACK - Diabetic Appropriate PO SCH (20:49)
[2018-02-21] MEDS: PULMICORT NEB TX 0.5 MG NEB SCH (20:55)
[2018-02-21 22:57] LABS: BILIRUBIN,URINE NEGATIVE (NEGATIVE); BLOOD/HEMOGLOBIN,URINE 3+ (NEGATIVE); GLUCOSE, URINE 4+ (NEGATIVE); KETONES,URINE NEGATIVE (NEGATIVE); LEUKOCYTE ESTERASE ,URINE 1+ (NEGATIVE); NITRITES,URINE POSITIVE (NEGATIVE); PROTEIN,URINE 3+ (NEGATIVE); UROBILINOGEN,URINE NORMAL (NORMAL)
[2018-02-21 23:01] LABS: APPEARANCE,URINE CLOUDY (CLEAR); COLOR,URINE YELLOW (YELLOW)
[2018-02-21 23:09] LABS: BACTERIA,URINE 1+ /HPF (NEGATIVE); SQUAMOUS EPITHELIAL CELL,UR FEW /HPF (NEGATIVE)
[2018-02-21 23:10] LABS: AMORPHOUS SEDIMENT,UR 1+ /HPF (NEGATIVE); MUCUS,URINE FEW /HPF (NEGATIVE)
[2018-02-22] MEDS: NORCO 10/325 TAB PO PRN ×2 (00:43→15:41)
[2018-02-22] MEDS: PHENERGAN INJ 25 MG IV PRN ×4 (00:43→23:36)
[2018-02-22] MEDS: DUONEB 0.5 MG/3 MG NEB SCH ×4 (01:45→17:55)
[2018-02-22] MEDS: NS 1000 ML 1,000 ML IV SCH (04:42)
[2018-02-22] MEDS: REGLAN TAB 10 MG PO SCH ×4 (05:34→20:59)
[2018-02-22] MEDS: MORPHINE SULFATE INJ 2 MG INJ IVP PRN ×4 (06:01→23:36)
[2018-02-22] MEDS: HumuLIN R SUBCUT PRN ×3 (06:12→21:02)
[2018-02-22 06:48] LABS: BASOPHILS # (AUTO) 0.1 X10^3/uL (0.0-0.1); BASOPHILS % (AUTO) 2.1 % (0.2-1.0); EOSINOPHILS # (AUTO) 0.2 x10^3/uL (0.0-0.2); EOSINOPHILS % (AUTO) 4.1 % (0.9-2.9); HEMATOCRIT 25.3 % (36.0-47.0); HEMOGLOBIN 8.6 g/dL (12.0-16.0); LYMPHOCYTES # (AUTO) 1.2 X10^3/uL (1.3-2.9); LYMPHOCYTES % (AUTO) 32.9 % (21.0-51.0); MEAN CORPUSCULAR HEMOGLOBIN 31.6 pg (27.0-34.0); MEAN CORPUSCULAR VOLUME 92.9 fL (80.0-100.0); MEAN PLATELET VOLUME 9.6 fL (7.4-11.0); MONOCYTES # (AUTO) 0.3 x10^3/uL (0.3-0.8); MONOCYTES % (AUTO) 6.9 % (0.0-13.0); PLATELET COUNT 193 X10^3/uL (150.0-450.0); RED BLOOD COUNT 2.72 X10^6/uL (3.5-5.4); RED CELL DISTRIBUTION WIDTH 15.7 % (11.6-16.5); WHITE BLOOD COUNT 3.7 X10^3/uL (3.6-10.0)
[2018-02-22 07:26] LABS: ALBUMIN 2.6 g/dL (3.4-5.0); CALCIUM 8.2 mg/dL (8.5-10.1); COR CA(FOR HYPOALB) 9.3 mg/dL (8.5-10.1); CREATININE 1.83 mg/dL (0.55-1.02); TOTAL PROTEIN 6.6 g/dL (6.4-8.2)
[2018-02-22] MEDS: EFFEXOR XR 75 MG CAP PO SCH (08:51)
[2018-02-22] MEDS: TOPAMAX PO SCH (08:51)
[2018-02-22] MEDS: LOPRESSOR TAB 50 MG PO SCH ×2 (08:51→20:59)
[2018-02-22] MEDS: LIPITOR TAB 20 MG PO SCH (08:51)
[2018-02-22] MEDS: COZAAR PO SCH (08:51)
[2018-02-22] MEDS: PLAVIX PO SCH (08:51)
[2018-02-22] MEDS: PROTONIX INJ 40 MG VIAL IVP SCH (08:52)
[2018-02-22 09:22] VITALS: BMI 34.5
[2018-02-22] MEDS: PULMICORT NEB TX 0.5 MG NEB SCH (09:52)
[2018-02-22] MEDS ORDERED: ROCEPHIN 1 GRAM IV PREMIX 1 G/50 ML IV.SOLN. IV SCH (10:00)
[2018-02-22] MEDS ORDERED: PHARMACY CONSULT - DOSE _____ XX SCH (10:00)
[2018-02-22] MEDS: LEVAQUIN PREMIX IV 750 MG 750 MG/150 ML BAG IV SCH (10:34)
[2018-02-22] MEDS: ROCEPHIN VIAL 1 GRAM 1 G in NS 100 ML IV + SPIKE MINIBAG* 100 ML IV SCH (10:35)
[2018-02-22] MEDS: CELEXA PO SCH (20:59)
[2018-02-22] MEDS: SNACK - Diabetic Appropriate PO SCH (21:00)
[2018-02-23] MEDS: DUONEB 0.5 MG/3 MG NEB SCH ×4 (01:01→16:10)
[2018-02-23] MEDS: PULMICORT NEB TX 0.5 MG NEB SCH ×3 (01:01→20:06)
[2018-02-23] MEDS: NS 1000 ML 1,000 ML IV SCH ×4 (03:00→20:59)
[2018-02-23] MEDS: HumuLIN R SUBCUT PRN ×3 (06:03→16:34)
[2018-02-23] MEDS: PHENERGAN INJ 25 MG IV PRN ×2 (06:04→21:00)
[2018-02-23] MEDS: REGLAN TAB 10 MG PO SCH ×2 (06:04→11:31)
[2018-02-23] MEDS: MORPHINE SULFATE INJ 2 MG INJ IVP PRN ×3 (06:05→18:28)
[2018-02-23 06:23] LABS: BASOPHILS # (AUTO) 0.1 X10^3/uL (0.0-0.1); BASOPHILS % (AUTO) 1.8 % (0.2-1.0); EOSINOPHILS # (AUTO) 0.2 x10^3/uL (0.0-0.2); EOSINOPHILS % (AUTO) 5.3 % (0.9-2.9); HEMATOCRIT 26.6 % (36.0-47.0); HEMOGLOBIN 8.9 g/dL (12.0-16.0); LYMPHOCYTES % (AUTO) 28.1 % (21.0-51.0); MEAN CORPUSCULAR HEMOGLOBIN 31.3 pg (27.0-34.0); MEAN CORPUSCULAR HGB CONC 33.4 g/dL (33.0-35.0); MEAN CORPUSCULAR VOLUME 93.7 fL (80.0-100.0); MEAN PLATELET VOLUME 9.5 fL (7.4-11.0); MONOCYTES # (AUTO) 0.3 x10^3/uL (0.3-0.8); MONOCYTES % (AUTO) 7.3 % (0.0-13.0); NEUTROPHILS # (AUTO) 2.1 x10^3/uL (2.2-4.8); NEUTROPHILS % (AUTO) 57.5 % (42.0-75.0); PLATELET COUNT 175 X10^3/uL (150.0-450.0); RED BLOOD COUNT 2.83 X10^6/uL (3.5-5.4); RED CELL DISTRIBUTION WIDTH 15.4 % (11.6-16.5); WHITE BLOOD COUNT 3.6 X10^3/uL (3.6-10.0)
[2018-02-23 06:47] LABS: ALBUMIN 2.6 g/dL (3.4-5.0); CALCIUM 8.1 mg/dL (8.5-10.1); CARBON DIOXIDE 22.7 mmol/L (21-32); COR CA(FOR HYPOALB) 9.2 mg/dL (8.5-10.1); CREATININE 1.84 mg/dL (0.55-1.02); TOTAL PROTEIN 6.7 g/dL (6.4-8.2)
[2018-02-23] MEDS: ROCEPHIN VIAL 1 GRAM 1 G in NS 100 ML IV + SPIKE MINIBAG* 100 ML IV SCH (08:39)
[2018-02-23] MEDS: LIPITOR TAB 20 MG PO SCH (08:39)
[2018-02-23] MEDS: PROTONIX INJ 40 MG VIAL IVP SCH (08:39)
[2018-02-23] MEDS: TOPAMAX PO SCH (08:39)
[2018-02-23] MEDS: LOPRESSOR TAB 50 MG PO SCH ×2 (11:29→20:56)
[2018-02-23] MEDS: EFFEXOR XR 75 MG CAP PO SCH (11:31)
[2018-02-23] MEDS: PLAVIX PO SCH (11:31)
[2018-02-23] MEDS: COZAAR PO SCH (11:32)
--- NOTE | 2018-02-23 14:48 | PCM.PROG ---
Progress Note - Progress Note for Day of Date of Exam: 02/23/18 - Subjective Subjective: 37 WF ER ADMISSION ON 02/20 WITH RESP DISTRESS, ACUTE BRONCHITIS. PT CURRENTLY ON IV ATBX, RESP THERAPY. PT REPORTS IMPROVING RESP SYMPTOMS, MILD COUGH. PT CO NAUSEA WITH VOMITING THIS AM AFTER BREAKFAST, PT CURRENTLY ON PO REGLAN FOR GASTROPARESI, CHANGE TO IV. PT HAS UTI WITH CULTURE GRAM NEGATIVE RODS, SENSATIVITY PENDING. WILL CONTINUE BS CONTROL CURRENT MEDICATION REGIMEN. REPEAT AM LABS - Past Medical Family Social History Past Med/Fam/Surg Hx: No changes since H&P Allergies: Allergies No Known Drug Allergies Allergy (Verified 02/20/18 12:54) - Review of Systems ROS: No change since H&P - Vital Signs and I&O's Vital Signs: Temperature 98.8 F Pulse Rate [Left Brachial] 84 Pulse Rate 72 Respiratory Rate 18 Blood Pressure [Left Arm] 128/72 Blood Pressure [Right Arm] 147/74 Blood Pressure 118/58 O2 Sat by Pulse Oximetry 95 Intake and Output: Intake & Output 02/21/18 02/22/18 02/23/18 02/24/18 11:59 11:59 11:59 11:59 Intake Total 1920 / 1920 715 / 715 2106 / 2106 Output Total 1400 / 1400 Balance 1920 / 1920 715 / 715 706 / 706 - Physical Exam Oriented: Normal Eyes: Blurred Vision (CHRONIC) Ear: Normal Nose: Discharge Throat: Red, Dry Respiratory: Wheezes Cardiovascular: Tachycardia. negative: Edema : Normal Auscultation: Bowel Sounds: Normal Tenderness: Normal Skin: Decreased Turgur Musculoskeletal: Deformity, Motor Deficit, Sensory Deficit Psychiatric: Anxiety Affect: Anxious Speech Pattern: Clear, Appropriate - Laboratory and Diagnostics Result Diagrams: 02/23/18 05:10 02/23/18 05:10 Labs: 02/21/18 22:45 Urine,Clean Catch Urine Culture - Preliminary 02/21/18 09:08 Blood Blood Culture - Preliminary 02/21/18 08:54 Blood Blood Culture - Preliminary Laboratory WBC 3.6 X10^3/uL (3.6-10.0) 02/23/18 05:10 RBC 2.83 X10^6/uL (3.5-5.4) L 02/23/18 05:10 Hgb 8.9 g/dL (12.0-16.0) L 02/23/18 05:10 Hct 26.6 % (36.0-47.0) L 02/23/18 05:10 MCV 93.7 fL (80.0-100.0) 02/23/18 05:10 MCH 31.3 pg (27.0-34.0) 02/23/18 05:10 MCHC 33.4 g/dL (33.0-35.0) 02/23/18 05:10 RDW 15.4 % (11.6-16.5) 02/23/18 05:10 Plt Count 175 X10^3/uL (150.0-450.0) 02/23/18 05:10 MPV 9.5 fL (7.4-11.0) 02/23/18 05:10 Neut % (Auto) 57.5 % (42.0-75.0) 02/23/18 05:10 Lymph % (Auto) 28.1 % (21.0-51.0) 02/23/18 05:10 [place] % (Auto) 7.3 % (0.0-13.0) 02/23/18 05:10 Eos % (Auto) 5.3 % (0.9-2.9) H 02/23/18 05:10 Baso % (Auto) 1.8 % (0.2-1.0) H 02/23/18 05:10 Neut # (Auto) 2.1 x10^3/uL (2.2-4.8) L 02/23/18 05:10 Lymph # (Auto) 1.0 X10^3/uL (1.3-2.9) L 02/23/18 05:10 [place] # (Auto) 0.3 x10^3/uL (0.3-0.8) 02/23/18 05:10 Eos # (Auto) 0.2 x10^3/uL (0.0-0.2) 02/23/18 05:10 Baso # (Auto) 0.1 X10^3/uL (0.0-0.1) 02/23/18 05:10 Absolute Nucleated RBC 0.0 /100WBC 02/23/18 05:10 Sample Site Rbr 02/21/18 12:16 ABG pH 7.310 (7.35-7.45) L 02/21/18 12:16 ABG pCO2 41.0 mmHg (35.0-45.0) 02/21/18 12:16 ABG pO2 70.0 mmHg (80.0-100.0) L 02/21/18 12:16 ABG HCO3 20.6 mmol/L (22-26) L 02/21/18 12:16 ABG O2 Saturation 92.0 % (90-100) 02/21/18 12:16 ABG Base Excess -5.4 mmol/L (-2.0-2.0) L 02/21/18 12:16 Nathan Test Na 02/21/18 12:16 A-a Gradient 28.0 mmHg 02/21/18 12:16 FiO2 21.000 02/21/18 12:16 Blood Gas Comments Jona well gb 02/21/18 12:16 Sodium 141 mmol/L (136-145) 02/23/18 05:10 Corrected Sodium 144 mmol/L (136-145) 02/23/18 05:10 Potassium 4.5 mmol/L (3.5-5.1) 02/23/18 05:10 Chloride 109 mmol/L (98-107) H 02/23/18 05:10 Carbon Dioxide 22.7 mmol/L (21-32) 02/23/18 05:10 BUN 26 mg/dL (7-18) H 02/23/18 05:10 Creatinine 1.84 mg/dL (0.55-1.02) H 02/23/18 05:10 Est GFR (MDRD) Af Amer 39 (>60) L 02/23/18 05:10 Est GFR (MDRD) Non-Af 33 (>60) L 02/23/18 05:10 Glucose 245 mg/dL (65-99) H 02/23/18 05:10 POC Glucose (mg/dL) 259 mg/dL (65-99) H 02/23/18 11:28 Calcium 8.1 mg/dL (8.5-10.1) L 02/23/18 05:10 Corrected Calcium 9.2 mg/dL (8.5-10.1) 02/23/18 05:10 Total Bilirubin 0.20 mg/dL (0.2-1.0) 02/23/18 05:10 AST 15 Units/L (15-37) 02/23/18 05:10 ALT 25 Units/L (12-78) 02/23/18 05:10 Alkaline Phosphatase 73 Units/L (46-116) 02/23/18 05:10 Total Protein 6.7 g/dL (6.4-8.2) 02/23/18 05:10 Albumin 2.6 g/dL (3.4-5.0) L 02/23/18 05:10 Globulin 4.1 g/dL (2.5-4.5) 02/23/18 05:10 Albumin/Globulin Ratio 0.6 Ratio (1.1-2.1) L 02/23/18 05:10 Specimen Type Clean catch urine 02/21/18 22:45 Urine Color Yellow (YELLOW) 02/21/18 22:45 Urine Appearance Cloudy (CLEAR) 02/21/18 22:45 Urine pH 5.0 (5.0 - 8.0) 02/21/18 22:45 Ur Specific [place] 1.015 (1.000-1.030) 02/21/18 22:45 Urine Protein 3+ (NEGATIVE) 02/21/18 22:45 Urine Glucose (UA) 4+ (NEGATIVE) 02/21/18 22:45 Urine Ketones Negative (NEGATIVE) 02/21/18 22:45 Urine Occult Blood 3+ (NEGATIVE) 02/21/18 22:45 Urine Nitrite Positive (NEGATIVE) 02/21/18 22:45 Urine Bilirubin Negative (NEGATIVE) 02/21/18 22:45 Urine Urobilinogen Normal (NORMAL) 02/21/18 22:45 Ur Leukocyte Esterase 1+ (NEGATIVE) 02/21/18 22:45 Urine RBC 5-10 /HPF (NONE SEEN) 02/21/18 22:45 Urine WBC 5-10 /HPF (NONE SEEN) 02/21/18 22:45 Ur Squamous Epith Cells Few /HPF (NEGATIVE) 02/21/18 22:45 Amorphous Sediment 1+ /HPF (NEGATIVE) 02/21/18 22:45 Urine Bacteria 1+ /HPF (NEGATIVE) 02/21/18 22:45 Urine Mucus Few /HPF (NEGATIVE) 02/21/18 22:45 Ur Culture Indicated? Yes/culture set up 02/21/18 22:45 Urine Opiates Screen Positive (NEG=<300) A 02/21/18 22:45 Urine Methadone Screen Negative (NEG=<300) 02/21/18 22:45 Ur Barbiturates Screen Negative (NEG=<200) 02/21/18 22:45 Ur Phencyclidine Scrn Negative (NEG=<25) 02/21/18 22:45 Ur Amphetamines Screen Negative (NEG=<1000) 02/21/18 22:45 U Benzodiazepines Scrn Negative (NEG=<200) 02/21/18 22:45 Urine Cocaine Screen Negative (NEG=<300) 02/21/18 22:45 U Marijuana (THC) Screen Negative (NEG=<50) 02/21/18 22:45 Acetone, Semi-Quant Negative (NEGATIVE) 02/21/18 05:00 Influenza Type A (PCR) Negative (NEGATIVE) 02/21/18 18:11 Influenza Type B (PCR) Negative (NEGATIVE) 02/21/18 18:11 - Plan (1) SOB (shortness of breath) Status: Acute Plan: CONTINUE RESP CONSULT. IV ATBX, BLOOD PRESSURE AND BLOOD SUGAR CONTROL. ANTI TUSSIVES, PAIN CONTROL. SSI, ANTIEMENTICS TREATMENT. SPUTUM CULTURE ORDERED COLLECTED ON ADMISSION. BUDESONIDE TO NEBS, SUPPLEMENTAL O2. AM CXR, FLU SWAB NEGATIVE (2) Acute bronchitis Status: Acute (3) Anemia due to chronic kidney disease Status: Acute Qualifiers: Chronic kidney disease stage: stage 4 (severe) Qualified Code(s): N18.4 - Chronic kidney disease, stage 4 (severe); D63.1 - Anemia in chronic kidney disease (4) Diabetes mellitus type 1 Status: Chronic Qualifiers: (5) Hypertension Status: Chronic (6) History of right below knee amputation Status: Chronic (7) CAD (coronary artery disease) Status: Chronic (8) Arthritis Status: Chronic (9) UTI (urinary tract infection) Status: Acute Plan: IV ROCEPHIN, CUTLURE PENDING
--- NOTE | 2018-02-23 16:09 | RAD ---
Examination: AP chest History: SOB Comparison reference 02/20/2018 Findings: Continued normal heart size with sternal wires, essentially clear lungs and pleural spaces . Impression: No interval change or acute chest findings. Reported By:
[2018-02-23] MEDS: REGLAN INJ 10 MG VIAL IVP SCH (16:33)
[2018-02-23] MEDS: CELEXA PO SCH (20:56)
[2018-02-23] MEDS: SNACK - Diabetic Appropriate PO SCH (20:57)
[2018-02-24] MEDS: DUONEB 0.5 MG/3 MG NEB SCH ×6 (00:08→20:13)
[2018-02-24] MEDS: PULMICORT NEB TX 0.5 MG NEB SCH ×3 (00:09→20:09)
[2018-02-24] MEDS: MORPHINE SULFATE INJ 2 MG INJ IVP PRN ×4 (00:56→20:37)
[2018-02-24 05:22] LABS: BASOPHILS # (AUTO) 0.1 X10^3/uL (0.0-0.1); BASOPHILS % (AUTO) 1.5 % (0.2-1.0); EOSINOPHILS # (AUTO) 0.2 x10^3/uL (0.0-0.2); EOSINOPHILS % (AUTO) 4.4 % (0.9-2.9); HEMATOCRIT 24.7 % (36.0-47.0); HEMOGLOBIN 8.2 g/dL (12.0-16.0); LYMPHOCYTES # (AUTO) 1.1 X10^3/uL (1.3-2.9); LYMPHOCYTES % (AUTO) 28.3 % (21.0-51.0); MEAN CORPUSCULAR HEMOGLOBIN 31.3 pg (27.0-34.0); MEAN CORPUSCULAR HGB CONC 33.4 g/dL (33.0-35.0); MEAN CORPUSCULAR VOLUME 93.7 fL (80.0-100.0); MEAN PLATELET VOLUME 9.4 fL (7.4-11.0); MONOCYTES # (AUTO) 0.3 x10^3/uL (0.3-0.8); MONOCYTES % (AUTO) 6.6 % (0.0-13.0); NEUTROPHILS # (AUTO) 2.3 x10^3/uL (2.2-4.8); NEUTROPHILS % (AUTO) 59.2 % (42.0-75.0); PLATELET COUNT 168 X10^3/uL (150.0-450.0); RED BLOOD COUNT 2.63 X10^6/uL (3.5-5.4); RED CELL DISTRIBUTION WIDTH 15.2 % (11.6-16.5); WHITE BLOOD COUNT 3.9 X10^3/uL (3.6-10.0)
[2018-02-24 05:25] LABS: ALBUMIN 2.5 g/dL (3.4-5.0); CALCIUM 7.8 mg/dL (8.5-10.1); CARBON DIOXIDE 25.4 mmol/L (21-32); CREATININE 1.68 mg/dL (0.55-1.02); TOTAL PROTEIN 6.2 g/dL (6.4-8.2)
[2018-02-24] MEDS: HumuLIN R SUBCUT PRN ×4 (05:42→21:10)
[2018-02-24] MEDS: REGLAN INJ 10 MG VIAL IVP SCH ×3 (05:42→17:29)
[2018-02-24] MEDS: COZAAR PO SCH (08:23)
[2018-02-24] MEDS: LOPRESSOR TAB 50 MG PO SCH ×2 (08:24→20:36)
[2018-02-24] MEDS: PROTONIX INJ 40 MG VIAL IVP SCH (08:25)
[2018-02-24] MEDS: EFFEXOR XR 75 MG CAP PO SCH (08:25)
[2018-02-24] MEDS: LIPITOR TAB 20 MG PO SCH (08:26)
[2018-02-24] MEDS: ROCEPHIN VIAL 1 GRAM 1 G in NS 100 ML IV + SPIKE MINIBAG* 100 ML IV SCH (08:27)
[2018-02-24] MEDS: TOPAMAX PO SCH (08:37)
[2018-02-24] MEDS: PLAVIX PO SCH (08:50)
[2018-02-24] MEDS: LEVAQUIN PREMIX IV 750 MG 750 MG/150 ML BAG IV SCH (10:16)
[2018-02-24] MEDS: PHENERGAN INJ 25 MG IV PRN ×2 (12:24→20:37)
[2018-02-24] MEDS: NS 1000 ML 1,000 ML IV SCH ×2 (17:29→18:07)
[2018-02-24] MEDS: CELEXA PO SCH (20:37)
[2018-02-24] MEDS: SNACK - Diabetic Appropriate PO SCH (21:03)
[2018-02-25] MEDS: DUONEB 0.5 MG/3 MG NEB SCH ×4 (00:59→17:20)
[2018-02-25] MEDS: NS 1000 ML 1,000 ML IV SCH ×2 (03:50→15:11)
[2018-02-25] MEDS: MORPHINE SULFATE INJ 2 MG INJ IVP PRN ×4 (03:58→22:29)
[2018-02-25] MEDS: REGLAN INJ 10 MG VIAL IVP SCH ×3 (05:37→16:53)
[2018-02-25] MEDS: HumuLIN R SUBCUT PRN ×4 (05:47→20:46)
[2018-02-25 06:13] LABS: BASOPHILS # (AUTO) 0.1 X10^3/uL (0.0-0.1); BASOPHILS % (AUTO) 1.8 % (0.2-1.0); EOSINOPHILS # (AUTO) 0.1 x10^3/uL (0.0-0.2); EOSINOPHILS % (AUTO) 3.8 % (0.9-2.9); HEMATOCRIT 23.6 % (36.0-47.0); LYMPHOCYTES # (AUTO) 1.1 X10^3/uL (1.3-2.9); LYMPHOCYTES % (AUTO) 27.7 % (21.0-51.0); MEAN CORPUSCULAR HEMOGLOBIN 31.4 pg (27.0-34.0); MEAN CORPUSCULAR HGB CONC 33.8 g/dL (33.0-35.0); MEAN PLATELET VOLUME 9.3 fL (7.4-11.0); MONOCYTES # (AUTO) 0.3 x10^3/uL (0.3-0.8); MONOCYTES % (AUTO) 6.8 % (0.0-13.0); NEUTROPHILS # (AUTO) 2.3 x10^3/uL (2.2-4.8); NEUTROPHILS % (AUTO) 59.9 % (42.0-75.0); PLATELET COUNT 153 X10^3/uL (150.0-450.0); RED BLOOD COUNT 2.54 X10^6/uL (3.5-5.4); RED CELL DISTRIBUTION WIDTH 14.9 % (11.6-16.5); WHITE BLOOD COUNT 3.9 X10^3/uL (3.6-10.0)
[2018-02-25 06:39] LABS: ALBUMIN 2.3 g/dL (3.4-5.0); CALCIUM 7.6 mg/dL (8.5-10.1); CARBON DIOXIDE 25.1 mmol/L (21-32); CREATININE 1.68 mg/dL (0.55-1.02)
[2018-02-25] MEDS: PROTONIX INJ 40 MG VIAL IVP SCH (08:24)
[2018-02-25] MEDS: ROCEPHIN VIAL 1 GRAM 1 G in NS 100 ML IV + SPIKE MINIBAG* 100 ML IV SCH (08:25)
[2018-02-25] MEDS: TOPAMAX PO SCH (08:25)
[2018-02-25] MEDS: EFFEXOR XR 75 MG CAP PO SCH (08:26)
[2018-02-25] MEDS: COZAAR PO SCH (08:26)
[2018-02-25] MEDS: LOPRESSOR TAB 50 MG PO SCH ×2 (08:26→20:40)
[2018-02-25] MEDS: LIPITOR TAB 20 MG PO SCH (08:26)
[2018-02-25] MEDS: PLAVIX PO SCH (08:28)
[2018-02-25] MEDS: PULMICORT NEB TX 0.5 MG NEB SCH (09:00)
[2018-02-25] MEDS: PHENERGAN INJ 25 MG IV PRN ×2 (09:29→20:40)
[2018-02-25 12:58] LABS: SERUM ACETONE NEGATIVE (NEGATIVE)
[2018-02-25 13:34] LABS: IRON 24 ug/dL (50-175)
[2018-02-25] MEDS: NORCO 10/325 TAB PO PRN (14:30)
[2018-02-25] MEDS: CELEXA PO SCH (20:40)
[2018-02-25] MEDS: SNACK - Diabetic Appropriate PO SCH (20:46)
[2018-02-26] MEDS: DUONEB 0.5 MG/3 MG NEB SCH ×2 (01:22→05:48)
[2018-02-26] MEDS: NS 1000 ML 1,000 ML IV SCH ×2 (04:04→18:28)
[2018-02-26] MEDS: MORPHINE SULFATE INJ 2 MG INJ IVP PRN ×3 (05:17→15:30)
[2018-02-26] MEDS: PHENERGAN INJ 25 MG IV PRN (05:18)
[2018-02-26] MEDS: REGLAN INJ 10 MG VIAL IVP SCH ×3 (05:30→16:30)
[2018-02-26] MEDS: HumuLIN R SUBCUT PRN ×2 (05:37→11:49)
[2018-02-26 06:11] LABS: BASOPHILS # (AUTO) 0.1 X10^3/uL (0.0-0.1); BASOPHILS % (AUTO) 1.9 % (0.2-1.0); EOSINOPHILS # (AUTO) 0.2 x10^3/uL (0.0-0.2); EOSINOPHILS % (AUTO) 4.1 % (0.9-2.9); HEMATOCRIT 26.5 % (36.0-47.0); HEMOGLOBIN 8.8 g/dL (12.0-16.0); LYMPHOCYTES % (AUTO) 23.4 % (21.0-51.0); MEAN CORPUSCULAR HGB CONC 33.4 g/dL (33.0-35.0); MEAN CORPUSCULAR VOLUME 92.8 fL (80.0-100.0); MEAN PLATELET VOLUME 9.3 fL (7.4-11.0); MONOCYTES # (AUTO) 0.3 x10^3/uL (0.3-0.8); NEUTROPHILS # (AUTO) 2.7 x10^3/uL (2.2-4.8); NEUTROPHILS % (AUTO) 62.6 % (42.0-75.0); PLATELET COUNT 170 X10^3/uL (150.0-450.0); RED BLOOD COUNT 2.85 X10^6/uL (3.5-5.4); RED CELL DISTRIBUTION WIDTH 14.8 % (11.6-16.5); WHITE BLOOD COUNT 4.3 X10^3/uL (3.6-10.0)
[2018-02-26 06:24] LABS: ALBUMIN 2.6 g/dL (3.4-5.0); CALCIUM 7.6 mg/dL (8.5-10.1); CARBON DIOXIDE 23.2 mmol/L (21-32); COR CA(FOR HYPOALB) 8.7 mg/dL (8.5-10.1); CREATININE 1.62 mg/dL (0.55-1.02); TOTAL PROTEIN 6.7 g/dL (6.4-8.2)
[2018-02-26] MEDS: PULMICORT NEB TX 0.5 MG NEB SCH ×2 (06:51→09:25)
[2018-02-26] MEDS: LIPITOR TAB 20 MG PO SCH (10:02)
[2018-02-26] MEDS: EFFEXOR XR 75 MG CAP PO SCH (10:02)
[2018-02-26] MEDS: COZAAR PO SCH (10:02)
[2018-02-26] MEDS: PLAVIX PO SCH (10:03)
[2018-02-26] MEDS: LOPRESSOR TAB 50 MG PO SCH (10:03)
[2018-02-26] MEDS: TOPAMAX PO SCH (10:04)
[2018-02-26] MEDS: ROCEPHIN VIAL 1 GRAM 1 G in NS 100 ML IV + SPIKE MINIBAG* 100 ML IV SCH (10:04)
[2018-02-26] MEDS: PROTONIX INJ 40 MG VIAL IVP SCH (10:04)
[2018-02-26 16:38] VITALS: BP 159/78
--- NOTE | 2018-03-30 14:50 | PCM.PROG ---
Progress Note - Progress Note for Day of Date of Exam: 02/24/18 - Subjective Subjective: 37 WF ER ADMISSION ON 02/20 WITH RESP DISTRESS, ACUTE BRONCHITIS. PT CURRENTLY ON IV ATBX, RESP THERAPY. PT REPORTS IMPROVING RESP SYMPTOMS, MILD NONPRODUCTIVE COUGH. P PT CURRENTLY ON PO REGLAN FOR GASTROPARESIS. PT HAS UTI WITH CULTURE GRAM NEGATIVE RODS. WILL CONTINUE BS CONTROL CURRENT MEDICATION REGIMEN. REPEAT AM LABS - Past Medical Family Social History Past Med/Fam/Surg Hx: No changes since H&P Allergies: Allergies No Known Drug Allergies Allergy (Verified 02/20/18 12:54) - Review of Systems ROS: No change since H&P - Vital Signs and I&O's Vital Signs: Temperature 98.9 F Pulse Rate [Right Brachial] 70 Pulse Rate [Left Brachial] 84 Pulse Rate 71 Respiratory Rate 18 Blood Pressure [Left Arm] 159/78 Blood Pressure [Right Arm] 149/81 Blood Pressure 118/58 O2 Sat by Pulse Oximetry 95 - Physical Exam Oriented: Normal Eyes: Blurred Vision (CHRONIC), Other (BLINDNESS RIGHT EYE) Ear: Normal Nose: Discharge Throat: Red, Dry Respiratory: Wheezes Cardiovascular: Tachycardia. negative: Edema : Normal Auscultation: Bowel Sounds: Normal Palpation: Normal Tenderness: Normal Skin: Decreased Turgur Musculoskeletal: Deformity, Motor Deficit, Sensory Deficit Psychiatric: Anxiety Affect: Anxious Speech Pattern: Clear, Appropriate - Laboratory and Diagnostics Result Diagrams: 02/26/18 05:22 02/26/18 05:22 Labs: 02/21/18 09:08 Blood Blood Culture - Final 02/21/18 08:54 Blood Blood Culture - Final 02/21/18 22:45 Urine,Clean Catch Urine Culture - Final Escherichia Coli Laboratory WBC 4.3 X10^3/uL (3.6-10.0) 02/26/18 05:22 RBC 2.85 X10^6/uL (3.5-5.4) L 02/26/18 05:22 Hgb 8.8 g/dL (12.0-16.0) L 02/26/18 05:22 Hct 26.5 % (36.0-47.0) L 02/26/18 05:22 MCV 92.8 fL (80.0-100.0) 02/26/18 05:22 MCH 31.0 pg (27.0-34.0) 02/26/18 05:22 MCHC 33.4 g/dL (33.0-35.0) 02/26/18 05:22 RDW 14.8 % (11.6-16.5) 02/26/18 05:22 Plt Count 170 X10^3/uL (150.0-450.0) 02/26/18 05:22 MPV 9.3 fL (7.4-11.0) 02/26/18 05:22 Neut % (Auto) 62.6 % (42.0-75.0) 02/26/18 05:22 Lymph % (Auto) 23.4 % (21.0-51.0) 02/26/18 05:22 [place] % (Auto) 8.0 % (0.0-13.0) 02/26/18 05:22 Eos % (Auto) 4.1 % (0.9-2.9) H 02/26/18 05:22 Baso % (Auto) 1.9 % (0.2-1.0) H 02/26/18 05:22 Neut # (Auto) 2.7 x10^3/uL (2.2-4.8) 02/26/18 05:22 Lymph # (Auto) 1.0 X10^3/uL (1.3-2.9) L 02/26/18 05:22 [place] # (Auto) 0.3 x10^3/uL (0.3-0.8) 02/26/18 05:22 Eos # (Auto) 0.2 x10^3/uL (0.0-0.2) 02/26/18 05:22 Baso # (Auto) 0.1 X10^3/uL (0.0-0.1) 02/26/18 05:22 Absolute Nucleated RBC 0.1 /100WBC 02/26/18 05:22 Sample Site Rbr 02/21/18 12:16 ABG pH 7.310 (7.35-7.45) L 02/21/18 12:16 ABG pCO2 41.0 mmHg (35.0-45.0) 02/21/18 12:16 ABG pO2 70.0 mmHg (80.0-100.0) L 02/21/18 12:16 ABG HCO3 20.6 mmol/L (22-26) L 02/21/18 12:16 ABG O2 Saturation 92.0 % (90-100) 02/21/18 12:16 ABG Base Excess -5.4 mmol/L (-2.0-2.0) L 02/21/18 12:16 Nathan Test Na 02/21/18 12:16 A-a Gradient 28.0 mmHg 02/21/18 12:16 FiO2 21.000 02/21/18 12:16 Blood Gas Comments Jona well gb 02/21/18 12:16 Sodium 140 mmol/L (136-145) 02/26/18 05:22 Corrected Sodium 143 mmol/L (136-145) 02/26/18 05:22 Potassium 4.7 mmol/L (3.5-5.1) 02/26/18 05:22 Chloride 108 mmol/L (98-107) H 02/26/18 05:22 Carbon Dioxide 23.2 mmol/L (21-32) 02/26/18 05:22 BUN 13 mg/dL (7-18) 02/26/18 05:22 Creatinine 1.62 mg/dL (0.55-1.02) H 02/26/18 05:22 Est GFR (MDRD) Af Amer 46 (>60) L 02/26/18 05:22 Est GFR (MDRD) Non-Af 38 (>60) L 02/26/18 05:22 Glucose 245 mg/dL (65-99) H 02/26/18 05:22 POC Glucose (mg/dL) 141 mg/dL (65-99) H 02/26/18 17:08 Calcium 7.6 mg/dL (8.5-10.1) L 02/26/18 05:22 Corrected Calcium 8.7 mg/dL (8.5-10.1) 02/26/18 05:22 Iron 24 ug/dL (50-175) L 02/25/18 05:12 Transferrin 126 mg/dL (202-364) L 02/25/18 05:12 Ferritin 226 ng/mL (8-252) 02/25/18 05:12 Total Bilirubin 0.30 mg/dL (0.2-1.0) 02/26/18 05:22 AST 11 Units/L (15-37) L 02/26/18 05:22 ALT 19 Units/L (12-78) 02/26/18 05:22 Alkaline Phosphatase 79 Units/L (46-116) 02/26/18 05:22 Total Protein 6.7 g/dL (6.4-8.2) 02/26/18 05:22 Albumin 2.6 g/dL (3.4-5.0) L 02/26/18 05:22 Globulin 4.1 g/dL (2.5-4.5) 02/26/18 05:22 Albumin/Globulin Ratio 0.6 Ratio (1.1-2.1) L 02/26/18 05:22 Vitamin B12 468 pg/mL (193-986) 02/25/18 05:12 Folate 8.7 ng/mL (>8.6) 02/25/18 05:12 Specimen Type Clean catch urine 02/21/18 22:45 Urine Color Yellow (YELLOW) 02/21/18 22:45 Urine Appearance Cloudy (CLEAR) 02/21/18 22:45 Urine pH 5.0 (5.0 - 8.0) 02/21/18 22:45 Ur Specific [place] 1.015 (1.000-1.030) 02/21/18 22:45 Urine Protein 3+ (NEGATIVE) 02/21/18 22:45 Urine Glucose (UA) 4+ (NEGATIVE) 02/21/18 22:45 Urine Ketones Negative (NEGATIVE) 02/21/18 22:45 Urine Occult Blood 3+ (NEGATIVE) 02/21/18 22:45 Urine Nitrite Positive (NEGATIVE) 02/21/18 22:45 Urine Bilirubin Negative (NEGATIVE) 02/21/18 22:45 Urine Urobilinogen Normal (NORMAL) 02/21/18 22:45 Ur Leukocyte Esterase 1+ (NEGATIVE) 02/21/18 22:45 Urine RBC 5-10 /HPF (NONE SEEN) 02/21/18 22:45 Urine WBC 5-10 /HPF (NONE SEEN) 02/21/18 22:45 Ur Squamous Epith Cells Few /HPF (NEGATIVE) 02/21/18 22:45 Amorphous Sediment 1+ /HPF (NEGATIVE) 02/21/18 22:45 Urine Bacteria 1+ /HPF (NEGATIVE) 02/21/18 22:45 Urine Mucus Few /HPF (NEGATIVE) 02/21/18 22:45 Ur Culture Indicated? Yes/culture set up 02/21/18 22:45 Urine Opiates Screen Positive (NEG=<300) A 02/21/18 22:45 Urine Methadone Screen Negative (NEG=<300) 02/21/18 22:45 Ur Barbiturates Screen Negative (NEG=<200) 02/21/18 22:45 Ur Phencyclidine Scrn Negative (NEG=<25) 02/21/18 22:45 Ur Amphetamines Screen Negative (NEG=<1000) 02/21/18 22:45 U Benzodiazepines Scrn Negative (NEG=<200) 02/21/18 22:45 Urine Cocaine Screen Negative (NEG=<300) 02/21/18 22:45 U Marijuana (THC) Screen Negative (NEG=<50) 02/21/18 22:45 Acetone, Semi-Quant Negative (NEGATIVE) 02/25/18 05:12 Influenza Type A (PCR) Negative (NEGATIVE) 02/21/18 18:11 Influenza Type B (PCR) Negative (NEGATIVE) 02/21/18 18:11 - Plan (1) Acute bronchitis Status: Acute Plan: IV ANTIBIOTCS, NEBS NEEDED (2) Intractable nausea and vomiting Status: Acute (3) UTI (urinary tract infection) Status: Acute Plan: IV ROCEPHIN, CUTLURE PENDING (4) Diabetes mellitus type 1 Status: Chronic Qualifiers: Plan: MONITOR BS
== END 2018-02-26 18:10 | disposition home or self-care (01) | DRG 202 ==
LOC: ER 12:53 → MED/SURG 18:00
PROVIDERS: ADMIT Internal Medicine; ATTEND Internal Medicine
DX: R06.02 Shortness of breath; K21.9 Gastro-esophageal reflux disease without esophagitis; R26.89 Other abnormalities of gait and mobility; K31.84 Gastroparesis; D63.1 Anemia in chronic kidney disease; E87.1 Hypo-osmolality and hyponatremia; Z89.511 Acquired absence of right leg below knee; B96.29 Other Escherichia coli [E. coli] as the cause of diseases classified elsewhere; I12.9 Hypertensive chronic kidney disease with stage 1 through stage 4 chronic kidney disease, or unspecified chronic kidney disease; M19.90 Unspecified osteoarthritis, unspecified site; I25.10 Atherosclerotic heart disease of native coronary artery without angina pectoris; J20.8 Acute bronchitis due to other specified organisms; N39.0 Urinary tract infection, site not specified; Z79.899 Other long term (current) drug therapy; N18.4 Chronic kidney disease, stage 4 (severe)
CPT/HCPCS: 36415; 36600; 71010; 71045; 80053; 80307; 81001; 82009; 82607; 82728; 82746; 82803; 82947; 83540; 84466; 85025; 87040; 87086; 87088; 87186; 87502; 94640; 94760; 96365; 96372; 97110; 97162; 97166; 97530; 99231; 99283; 99284; A4222; C9113; G0434; J0696; J1815; J1956; J2270; J2405; J2550; J2765; J7030; J7050; J7620; J7626

== ENCOUNTER 2018-09-07 19:59 | Inpatient (IN) ==
[2018-09-07] MEDS ORDERED: NS 1000 ML 1,000 ML ONE ×2 (20:08→21:31)
[2018-09-07] MEDS ORDERED: NS 1000 ML 1,000 ML IV ONE (20:09)
--- NOTE | 2018-09-07 20:17 | DR.GENAD ---
HPI Time Seen Time Seen by Provider: 09/07/18 20:06 Complaint/Symptoms Chief Complaint Doctors Comments: Patient presents to the ED via EMS with complaint of nausea and vomiting for four days. She admits to a low grade fever. She thought she might get better before now there she stayed at home. She is alert in no acute distress. Her glucose reads >500mg/dl. She inject 9Units insulin daily. PMH PMH Past Medical History: Anxiety, Arthritis, Cirrhosis, CHF, Diabetes, Migraines, GERD, Headaches, Hypertension and Renal Disease Surgical History: , CABG/Valve Surgery, Cholecystectomy, Ortho Surgery and Other Family History Family Medical History: Diabetes Mellitus, Cancer, [place], Sudden Cardiac and Hypertension Social History Do you use any recreational Drugs:: No PE Vital Signs Vitals: Temperature 98.5 F Pulse Rate [Right] 80 Pulse Rate 60 Respiratory Rate 14 Blood Pressure [Left Arm] 159/78 Blood Pressure [Right Arm] 126/77 Blood Pressure 112/60 O2 Sat by Pulse Oximetry 96 General Limitations: No Limitations General Appearance: Alert and In No Apparent Distress Head Head Exam: Normal Inspection, Atraumatic and Normocephalic Eyes Eye exam: Normal Appearance, PERRL and EOMI ENT ENT Exam: Normal Exam, Normal Oropharynx, Normal External Ear Exam, Mucous Membranes Dry and TM's Normal Bilaterally External Ear Exam: Normal External Inspection TM/Canal Exam: Bilateral: Normal Nose Exam: Normal Nose Exam Mouth Exam: Normal Inspection Throat Exam: Normal Inspection Neck Neck Exam: Normal Inspection and Full ROM Chest Chest Inspection: Normal Inspection Respiratory Respiratory Exam: Normal Lung Sounds Bilat Respiratory Exam: Bilateral: Clear to Auscultation Cardiovascular Cardiovascular Exam: Regular Rate and Normal Rhythm Abdominal Exam Abdominal Exam: Normal Inspection, Normal Bowel Sounds and Soft Abdominal Tenderness: RUQ Extremities Extremities Exam: Normal Inspection, Full ROM and Other (BKA left) Back Back Exam: Normal Inspection and Full ROM Neurologic Neurological Exam: Alert, Oriented X3 and CN II-XII Intact Psychiatric Psychiatric Exam: Normal Affect and Normal Mood Skin Skin Exam: Warm, Dry, Intact and Normal Color COURSE Treatment Treatment: NS, Insulin drip. bicarb Consultation Called: 21:40 Consultation Comments: Dr. Devine agreed to admit for further evaluation and treatment ROR Labs Reviewed Laboratory Results Reviewed?: Yes Result Diagrams: 09/07/18 20:17 03/17/19 23:52 Laboratory: WBC 4.0 X10^3/uL (3.6-10.0) 09/07/18 20:17 RBC 2.73 X10^6/uL (3.5-5.4) L 09/07/18 20:17 Hgb 8.5 g/dL (12.0-16.0) L 09/07/18 20:17 Hct 26.7 % (36.0-47.0) L 09/07/18 20:17 MCV 97.8 fL (80.0-100.0) 09/07/18 20:17 MCH 31.3 pg (27.0-34.0) 09/07/18 20:17 MCHC 32.0 g/dL (33.0-35.0) L 09/07/18 20:17 RDW 14.8 % (11.6-16.5) 09/07/18 20:17 Plt Count 163 X10^3/uL (150.0-450.0) 09/07/18 20:17 MPV 10.0 fL (7.4-11.0) 09/07/18 20:17 Neut % (Auto) 72.7 % (42.0-75.0) 09/07/18 20:17 Lymph % (Auto) 17.8 % (21.0-51.0) L 09/07/18 20:17 [place] % (Auto) 3.9 % (0.0-13.0) 09/07/18 20:17 Eos % (Auto) 4.2 % (0.9-2.9) H 09/07/18 20:17 Baso % (Auto) 1.4 % (0.2-1.0) H 09/07/18 20:17 Neut # (Auto) 2.9 x10^3/uL (2.2-4.8) 09/07/18 20:17 Lymph # (Auto) 0.7 X10^3/uL (1.3-2.9) L 09/07/18 20:17 [place] # (Auto) 0.2 x10^3/uL (0.3-0.8) L 09/07/18 20:17 Eos # (Auto) 0.2 x10^3/uL (0.0-0.2) 03/17/19 20:17 Baso # (Auto) 0.1 X10^3/uL (0.0-0.1) 09/07/18 20:17 Absolute Nucleated RBC 0.1 /100WBC 09/07/18 20:17 Sample Site Lr 09/07/18 20:29 ABG pH 7.420 (7.35-7.45) 09/07/18 20:29 ABG pCO2 37.0 mmHg (35.0-45.0) 09/07/18 20:29 ABG pO2 54.0 mmHg (80.0-100.0) L 09/07/18 20:29 ABG HCO3 24.0 mmol/L (22-26) 09/07/18 20:29 ABG O2 Saturation 88.0 % (90-100) L 09/07/18 20:29 ABG Base Excess -0.2 mmol/L (-2.0-2.0) 09/07/18 20:29 Nathan Test Pos 09/07/18 20:29 A-a Gradient 49.0 mmHg 09/07/18 20:29 FiO2 21.0 09/07/18 20:29 Blood Gas Comments Jona well ae 09/07/18 20:29 Sodium 135 mmol/L (136-145) L 09/07/18 23:52 Corrected Sodium 146 mmol/L (136-145) H 09/07/18 23:52 Potassium 4.6 mmol/L (3.5-5.1) 09/07/18 23:52 Chloride 102 mmol/L (98-107) 09/07/18 23:52 Carbon Dioxide 23.2 mmol/L (21-32) 09/07/18 23:52 BUN 42 mg/dL (7-18) H 09/07/18 23:52 Creatinine 2.58 mg/dL (0.55-1.02) H 09/07/18 23:52 Est GFR (MDRD) Af Amer 27 (>60) L 09/07/18 23:52 Est GFR (MDRD) Non-Af 22 (>60) L 09/07/18 23:52 Glucose 551 mg/dL (65-99) H* 09/07/18 23:52 POC Glucose (mg/dL) 231 mg/dL (65-99) H 09/08/18 04:53 Calcium 7.9 mg/dL (8.5-10.1) L 09/07/18 23:52 Corrected Calcium 9.6 mg/dL (8.5-10.1) 09/07/18 20:17 Total Bilirubin 0.40 mg/dL (0.2-1.0) 09/07/18 20:17 AST 6 Units/L (15-37) L 09/07/18 20:17 ALT 15 Units/L (12-78) 09/07/18 20:17 Alkaline Phosphatase 78 Units/L (46-116) 09/07/18 20:17 Creatine Kinase 34 Units/L (26-192) 09/07/18 22:10 CK-MB (CK-2) < 1.0 ng/mL (0-4.0) 09/07/18 22:10 CK/CKMB % Calc 2.9 % (<4) 09/07/18 22:10 Troponin I < 0.02 ng/mL (0-1.5) 09/07/18 22:10 Total Protein 6.9 g/dL (6.4-8.2) 09/07/18 20:17 Albumin 2.4 g/dL (3.4-5.0) L 09/07/18 20:17 Globulin 4.5 g/dL (2.5-4.5) 09/07/18 20:17 Albumin/Globulin Ratio 0.5 Ratio (1.1-2.1) L 09/07/18 20:17 Specimen Type Clean catch urine 09/07/18 20:17 Urine Color Yellow (YELLOW) 09/07/18 20:17 Urine Appearance Cloudy (CLEAR) 09/07/18 20:17 Urine pH 6.0 (5.0 - 8.0) 09/07/18 20:17 Ur Specific [place] 1.005 (1.000-1.030) 09/07/18 20:17 Urine Protein 3+ (NEGATIVE) 09/07/18 20:17 Urine Glucose (UA) 4+ (NEGATIVE) 09/07/18 20:17 Urine Ketones Negative (NEGATIVE) 09/07/18 20:17 Urine Occult Blood 3+ (NEGATIVE) 09/07/18 20:17 Urine Nitrite Negative (NEGATIVE) 09/07/18 20:17 Urine Bilirubin Negative (NEGATIVE) 09/07/18 20:17 Urine Acetone Negative (NEGATIVE) 09/08/18 00:01 Urine Urobilinogen Normal (NORMAL) 09/07/18 20:17 Ur Leukocyte Esterase 2+ (NEGATIVE) 09/07/18 20:17 Urine RBC 3-5 /HPF (NONE SEEN) 09/07/18 20:17 Urine WBC Tntc /HPF (NONE SEEN) 09/07/18 20:17 Ur Squamous Epith Cells Moderate /HPF (NEGATIVE) 09/07/18 20:17 Amorphous Sediment Trace /HPF (NEGATIVE) 09/07/18 20:17 Urine Bacteria Trace /HPF (NEGATIVE) 09/07/18 20:17 Ur Culture Indicated? Yes/culture set up 09/07/18 20:17 Acetone, Semi-Quant Negative (NEGATIVE) 09/07/18 20:29 Other Results Comments: Chest: Heart size enlarged. Prior postsurgical changes of prior median sternotomy noted. Mild central hilar vascular congestive changes are present without convincing evidence of overt pulmonary edema. No pneumothorax or pleural effusion. Impression: Cardiomegaly and central hilar vascular congestive changes. XRAY XRAY Interpreted by: Radiologist Diagnosis Discharge Problem: Hyperglycemia, Acute prerenal azotemia UTI (urinary tract infection) Qualifiers: Urinary tract infection type: site unspecified Hematuria presence: with hematuria Qualified Code(s): N39.0 - Urinary tract infection, site not specified Diabetic ketoacidosis Qualifiers: Diabetes mellitus type: due to underlying condition Diabetes mellitus complication detail: without coma Qualified Code(s): E08.10 - Diabetes mellitus due to underlying condition with ketoacidosis without coma
[2018-09-07 20:28] LABS: BASOPHILS # (AUTO) 0.1 X10^3/uL (0.0-0.1); BASOPHILS % (AUTO) 1.4 % (0.2-1.0); EOSINOPHILS # (AUTO) 0.2 x10^3/uL (0.0-0.2); EOSINOPHILS % (AUTO) 4.2 % (0.9-2.9); HEMATOCRIT 26.7 % (36.0-47.0); HEMOGLOBIN 8.5 g/dL (12.0-16.0); LYMPHOCYTES # (AUTO) 0.7 X10^3/uL (1.3-2.9); LYMPHOCYTES % (AUTO) 17.8 % (21.0-51.0); MEAN CORPUSCULAR HEMOGLOBIN 31.3 pg (27.0-34.0); MEAN CORPUSCULAR VOLUME 97.8 fL (80.0-100.0); MONOCYTES # (AUTO) 0.2 x10^3/uL (0.3-0.8); MONOCYTES % (AUTO) 3.9 % (0.0-13.0); NEUTROPHILS # (AUTO) 2.9 x10^3/uL (2.2-4.8); NEUTROPHILS % (AUTO) 72.7 % (42.0-75.0); PLATELET COUNT 163 X10^3/uL (150.0-450.0); RED BLOOD COUNT 2.73 X10^6/uL (3.5-5.4); RED CELL DISTRIBUTION WIDTH 14.8 % (11.6-16.5)
[2018-09-07 20:35] LABS: ABG BASE EXCESS -0.2 mmol/L (-2.0-2.0)
[2018-09-07 20:36] LABS: ABG ALLEN TEST POS
[2018-09-07 20:38] LABS: ALBUMIN 2.4 g/dL (3.4-5.0); CALCIUM 8.3 mg/dL (8.5-10.1); CARBON DIOXIDE 23.9 mmol/L (21-32); COR CA(FOR HYPOALB) 9.6 mg/dL (8.5-10.1); CREATININE 2.85 mg/dL (0.55-1.02); TOTAL PROTEIN 6.9 g/dL (6.4-8.2)
[2018-09-07 20:57] LABS: BILIRUBIN,URINE NEGATIVE (NEGATIVE); BLOOD/HEMOGLOBIN,URINE 3+ (NEGATIVE); GLUCOSE, URINE 4+ (NEGATIVE); KETONES,URINE NEGATIVE (NEGATIVE); LEUKOCYTE ESTERASE ,URINE 2+ (NEGATIVE); NITRITES,URINE NEGATIVE (NEGATIVE); PROTEIN,URINE 3+ (NEGATIVE); UROBILINOGEN,URINE NORMAL (NORMAL)
[2018-09-07 21:04] LABS: APPEARANCE,URINE CLOUDY (CLEAR); COLOR,URINE YELLOW (YELLOW)
[2018-09-07] MEDS ORDERED: CATAPRES TAB 0.1 MG PO ONE ×2 (21:04→22:05)
[2018-09-07] MEDS ORDERED: CATAPRES TAB 0.1 MG ONE ×2 (21:06→22:07)
--- NOTE | 2018-09-07 21:12 | RAD ---
HISTORY: Hypertension Findings: Heart size enlarged. Prior postsurgical changes of prior median sternotomy noted. Mild central hilar vascular congestive changes are present without convincing evidence of overt pulmonary edema. No pneumothorax or pleural effusion. IMPRESSION: Cardiomegaly and central hilar vascular congestive changes. Reported By:
[2018-09-07 21:16] LABS: BACTERIA,URINE TRACE /HPF (NEGATIVE); SQUAMOUS EPITHELIAL CELL,UR MODERATE /HPF (NEGATIVE)
[2018-09-07 21:17] LABS: AMORPHOUS SEDIMENT,UR TRACE /HPF (NEGATIVE)
[2018-09-07] MEDS ORDERED: NS 1000 ML 1,000 ML with SODIUM BICARBONATE 8.4% INJ ADULT 50 ML IV ONE ×2 (21:30)
[2018-09-07] MEDS ORDERED: SODIUM BICARBONATE 8.4% INJ ADULT ONE (21:32)
[2018-09-07] MEDS ORDERED: HumuLIN R SUBCUT ONE (21:47)
[2018-09-07] MEDS ORDERED: HumuLIN R ONE (21:47)
[2018-09-07] MEDS ORDERED: TORADOL 30 MG VIAL IVP ONE (21:47)
[2018-09-07] MEDS ORDERED: HumuLIN R IV ONE (21:48)
[2018-09-07] MEDS ORDERED: TORADOL 30 MG VIAL ONE (21:49)
[2018-09-07] MEDS ORDERED: NS 1/2 1000 ML IV 1,000 ML ONE (22:36)
[2018-09-07 22:37] LABS: CKMB % 2.9 % (<4); CREATINE KINASE 34 Units/L (26-192); CREATINE KINASE MB < 1.0 ng/mL (0-4.0); TROPONIN I < 0.02 ng/mL (0-1.5)
[2018-09-07] MEDS ORDERED: NS 1/2 1000 ML IV 1,000 ML IV SCH (23:00)
[2018-09-07] MEDS ORDERED: NORCO 10/325 TAB PO PRN (23:26)
[2018-09-08 00:52] VITALS: BMI 38.5
[2018-09-08 00:53] LABS: CALCIUM 7.9 mg/dL (8.5-10.1); CARBON DIOXIDE 23.2 mmol/L (21-32); CREATININE 2.58 mg/dL (0.55-1.02)
[2018-09-08] MEDS ORDERED: HumuLIN R SUBCUT ONE (01:29)
[2018-09-08] MEDS ORDERED: HumuLIN R ONE (01:38)
[2018-09-08] MEDS ORDERED: MORPHINE SULFATE INJ 2 MG INJ IVP ONE (05:06)
[2018-09-08] MEDS ORDERED: MORPHINE SULFATE INJ 2 MG INJ ONE (05:08)
[2018-09-08 06:00] LABS: CALCIUM 7.9 mg/dL (8.5-10.1); CARBON DIOXIDE 23.4 mmol/L (21-32); CREATININE 2.42 mg/dL (0.55-1.02)
[2018-09-08 06:04] LABS: ABG HCO3 24.8 mmol/L (22-26)
[2018-09-08 06:08] LABS: BASOPHILS # (AUTO) 0.1 X10^3/uL (0.0-0.1); BASOPHILS % (AUTO) 2.1 % (0.2-1.0); EOSINOPHILS # (AUTO) 0.2 x10^3/uL (0.0-0.2); EOSINOPHILS % (AUTO) 5.3 % (0.9-2.9); HEMATOCRIT 20.8 % (36.0-47.0); LYMPHOCYTES # (AUTO) 1.5 X10^3/uL (1.3-2.9); LYMPHOCYTES % (AUTO) 32.3 % (21.0-51.0); MEAN CORPUSCULAR HEMOGLOBIN 31.4 pg (27.0-34.0); MEAN CORPUSCULAR HGB CONC 33.5 g/dL (33.0-35.0); MEAN CORPUSCULAR VOLUME 93.7 fL (80.0-100.0); MEAN PLATELET VOLUME 10.1 fL (7.4-11.0); MONOCYTES # (AUTO) 0.2 x10^3/uL (0.3-0.8); MONOCYTES % (AUTO) 4.5 % (0.0-13.0); NEUTROPHILS # (AUTO) 2.5 x10^3/uL (2.2-4.8); NEUTROPHILS % (AUTO) 55.8 % (42.0-75.0); PLATELET COUNT 149 X10^3/uL (150.0-450.0); RED BLOOD COUNT 2.22 X10^6/uL (3.5-5.4); WHITE BLOOD COUNT 4.5 X10^3/uL (3.6-10.0)
[2018-09-08 06:15] LABS: ABG ALLEN TEST POS
[2018-09-08] MEDS ORDERED: NS 1000 ML 1,000 ML ONE (06:16)
[2018-09-08] MEDS ORDERED: BENTYL CAP 10 MG PO ONE (06:17)
[2018-09-08] MEDS ORDERED: REGLAN TAB 10 MG PO ONE (06:21)
[2018-09-08] MEDS: NS 1000 ML 1,000 ML IV SCH ×3 (06:22→22:09)
[2018-09-08] MEDS ORDERED: REGLAN TAB 10 MG PO SCH (06:30)
[2018-09-08 06:59] LABS: HYPOCHROMASIA SLIGHT; PLATELET MORPHOLOGY COMMENT NORMAL (NORMAL)
[2018-09-08] MEDS ORDERED: LASIX PO SCH (09:00)
[2018-09-08] MEDS ORDERED: CATAPRES TAB 0.1 MG PO SCH (09:00)
[2018-09-08] MEDS ORDERED: LYRICA CAP 50 MG PO SCH (09:00)
[2018-09-08] MEDS ORDERED: INSULIN ASPART 15 UNIT SQ SCH (09:00)
[2018-09-08] MEDS ORDERED: LOPRESSOR TAB 25 MG PO SCH (09:00)
[2018-09-08] MEDS ORDERED: COZAAR PO SCH (09:00)
[2018-09-08] MEDS: ASPIRIN PO SCH (09:29)
[2018-09-08] MEDS: EFFEXOR XR 75 MG CAP PO SCH (09:29)
[2018-09-08] MEDS: LIPITOR TAB 20 MG PO SCH (09:29)
[2018-09-08] MEDS: PLAVIX PO SCH (09:29)
[2018-09-08] MEDS: PROTONIX TAB 40 MG PO SCH (09:30)
[2018-09-08] MEDS: TOPAMAX PO SCH (09:30)
[2018-09-08] MEDS ORDERED: POTASSIUM CHL 40 MEQ/NS 0.45% 500 ML IV PRN (10:26)
[2018-09-08] MEDS ORDERED: KLOR-CON PO PRN (10:26)
[2018-09-08] MEDS ORDERED: POTASSIUM CHL 60 MEQ/NS 0.45% 500 ML IV PRN (10:26)
[2018-09-08] MEDS ORDERED: MICRO K EXTEN CAP 10 MEQ PO PRN (10:26)
[2018-09-08] MEDS ORDERED: MAGNESIUM SULFATE 1 GRAM/100 mL PREMIX 1 GM/100 ML BAG IV PRN (10:26)
[2018-09-08] MEDS ORDERED: K-DUR TAB 20 MEQ PO PRN (10:26)
[2018-09-08] MEDS ORDERED: POTASSIUM CHLORIDE LIQ 20 MEQ UDC PO PRN (10:26)
[2018-09-08] MEDS ORDERED: K-RIDER 10 MEQ/NS 100 ML 10 MEQ/100 ML BAG IV PRN (10:26)
[2018-09-08] MEDS: REGLAN TAB 5 MG PO SCH ×3 (11:00→20:17)
[2018-09-08 11:51] LABS: ABG BASE EXCESS -2.5 mmol/L (-2.0-2.0); ABG HCO3 22.5 mmol/L (22-26)
[2018-09-08] MEDS: NORCO 10/325 TAB PO PRN ×2 (13:02→20:17)
[2018-09-08] MEDS: HumuLIN R SUBCUT PRN ×2 (16:04→20:16)
[2018-09-08 19:07] LABS: HEMOGLOBIN 7.7 g/dL (12.0-16.0)
[2018-09-08] MEDS: SNACK - Diabetic Appropriate PO SCH (20:16)
[2018-09-08] MEDS: CELEXA PO SCH (20:19)
[2018-09-08] MEDS: LOPRESSOR TAB 25 MG PO SCH (20:19)
[2018-09-09] MEDS: HumuLIN R SUBCUT PRN ×4 (05:49→21:49)
[2018-09-09] MEDS: REGLAN TAB 5 MG PO SCH ×4 (05:50→21:47)
[2018-09-09] MEDS: NORCO 10/325 TAB PO PRN ×3 (05:52→21:50)
[2018-09-09 06:04] LABS: ALBUMIN 2.1 g/dL (3.4-5.0); CALCIUM 7.4 mg/dL (8.5-10.1); CARBON DIOXIDE 21.1 mmol/L (21-32); COR CA(FOR HYPOALB) 8.9 mg/dL (8.5-10.1); CREATININE 2.83 mg/dL (0.55-1.02); MAGNESIUM 1.5 mg/dL (1.7-2.9)
[2018-09-09] MEDS: NS 1000 ML 1,000 ML IV SCH ×4 (06:11→23:00)
[2018-09-09 06:14] LABS: BASOPHILS # (AUTO) 0.1 X10^3/uL (0.0-0.1); BASOPHILS % (AUTO) 2.2 % (0.2-1.0); EOSINOPHILS # (AUTO) 0.2 x10^3/uL (0.0-0.2); EOSINOPHILS % (AUTO) 3.9 % (0.9-2.9); HEMATOCRIT 23.2 % (36.0-47.0); HEMOGLOBIN 7.7 g/dL (12.0-16.0); LYMPHOCYTES # (AUTO) 1.2 X10^3/uL (1.3-2.9); LYMPHOCYTES % (AUTO) 23.5 % (21.0-51.0); MEAN CORPUSCULAR HEMOGLOBIN 31.9 pg (27.0-34.0); MEAN CORPUSCULAR HGB CONC 33.2 g/dL (33.0-35.0); MEAN CORPUSCULAR VOLUME 96.3 fL (80.0-100.0); MEAN PLATELET VOLUME 9.9 fL (7.4-11.0); MONOCYTES # (AUTO) 0.3 x10^3/uL (0.3-0.8); MONOCYTES % (AUTO) 4.9 % (0.0-13.0); NEUTROPHILS # (AUTO) 3.4 x10^3/uL (2.2-4.8); NEUTROPHILS % (AUTO) 65.5 % (42.0-75.0); PLATELET COUNT 153 X10^3/uL (150.0-450.0); RED BLOOD COUNT 2.41 X10^6/uL (3.5-5.4); RED CELL DISTRIBUTION WIDTH 14.3 % (11.6-16.5); WHITE BLOOD COUNT 5.2 X10^3/uL (3.6-10.0)
[2018-09-09 06:49] LABS: HYPOCHROMASIA SLIGHT; PLATELET MORPHOLOGY COMMENT NORMAL (NORMAL)
[2018-09-09] MEDS ORDERED: LANTUS ONE (09:43)
[2018-09-09] MEDS: PROTONIX TAB 40 MG PO SCH (09:44)
[2018-09-09] MEDS: LIPITOR TAB 20 MG PO SCH (09:44)
[2018-09-09] MEDS: EFFEXOR XR 75 MG CAP PO SCH (09:44)
[2018-09-09] MEDS: ASPIRIN PO SCH (09:45)
[2018-09-09] MEDS: TOPAMAX PO SCH (09:45)
[2018-09-09] MEDS: PLAVIX PO SCH (09:45)
[2018-09-09] MEDS: LOPRESSOR TAB 25 MG PO SCH ×2 (09:45→21:47)
[2018-09-09] MEDS: LANTUS SC SCH (09:47)
[2018-09-09] MEDS: MAG-OX TAB PO SCH (13:58)
--- NOTE | 2018-09-09 16:24 | DR.H&P ---
H&P - History & Physical for Day of: H&P Date: 09/07/18 - Chief Complaint Chief Complaint: N/V WEAKNESS, ELEVATED BLOOD SUGAR - History of Present Illness History of Present Illness: 38 WF ER ADMISSION WITH CO nausea and vomiting for four days. She admits to a low grade fever. She thought she might get better before now there she stayed at home. She is alert in no acute distress. Her glucose reads >500mg/dl. PT HAS PMH HX IDDM, HTN, CAD, CHF, OA, MDD, IRMA, DIABETIC GASTROPARESIS, GERD. PT BS IN ER >700, ADMITTED TO ICU FOR TREATMENT OF ACIDOSIS, PT STARTED ON INSULIN DRIP. - Past Medical History Past Medical History: Hypertension, Diabetes, Renal Disease, Cirrhosis, Anxiety, GERD, Arthritis, Migraines, Headaches, CHF - Past Surgical History Surgical History: CABG/Valve Surgery, Cholecystectomy, , Ortho Surgery, Other - Family History Family Medical History: Diabetes Mellitus, Cancer, [place], Sudden Cardiac , Hypertension - Social History Does patient currently use any type of tobacco product: No Have you used tobacco products in the last 12 months: No Type of Tobacco Use: None Does any household member use tobacco: No Alcohol Use: None Drug Use: None - Medications Home Medications: No Known Drug Allergies Allergy (Verified 09/07/18 20:22) CONTINUE taking the following medications clonidine HCl 0.1 mg PO DAILY 09/08/18 [History] hydrocodone-acetaminophen 1 - 1.5 tab PO DAILY PRN 09/08/18 [History] insulin aspart U-100 [Novolog U-100 Insulin aspart] 3 - 12 units SUBCUT TID 09/08/18 [History] pregabalin [Lyrica] 50 mg PO DAILY PRN 09/08/18 [History] promethazine 25 mg PO Q8H PRN 09/08/18 [History] - Review of Systems Constitutional: Weakness Eyes: No Symptoms Reported ENT: No Symptoms Reported Respiratory: No Symptoms Reported Cardiovascular: [place] Gastrointestinal: Nausea, Vomiting. denies: Diarrhea Genitourinary: Frequency Musculoskeletal: Shoulder Pain, Back Pain Skin: No Symptoms Reported Neurological: Weakness - Physical Exam Vital Signs: Temperature 98.2 F Pulse Rate [Right] 80 Pulse Rate 70 Respiratory Rate 13 Blood Pressure [Left Arm] 159/78 Blood Pressure [Right Arm] 126/77 Blood Pressure 104/57 O2 Sat by Pulse Oximetry 100 Oriented: Normal Eyes: Blurred Vision (CHRONIC VISION IMPAIRMENT) Ear: Normal Nose: Normal Throat: Normal Respiratory: RLL Diminished, LLL Diminished Cardiovascular: Normal : Normal Auscultation: Bowel Sounds: Normal Palpation: Normal Tenderness: Suprapubic, Moderate Skin: Decreased [place] Musculoskeletal: Left, Shoulder, Back:Thoracic, Back:Lumbar Psychiatric: Anxiety Affect: Anxious Speech Pattern: Clear, Appropriate - Assessment/Plan (1) Diabetic ketoacidosis Qualifiers: Diabetes mellitus type: due to underlying condition Diabetes mellitus co mplication detail: without coma Qualified Code(s): E08.10 - Diabetes mellitus due to underlying condition with ketoacidosis without coma Status: Acute Plan: ADMIT, ICU. INSULIN DRIP PER PROTOCOL, IV HYDRATION. CONTINUOUS CARDIAC MONITORING. STRICT I & OS, ADMISSION LABS. UA, ACETONE NEGATIVE, REPEAT Q AM ABG ON ADMISSON. VERIFY HOME MEDICATION. (2) UTI (urinary tract infection) Qualifiers: Urinary tract infection type: site unspecified Hematuria presence: with hematuria Qualified Code(s): N39.0 - Urinary tract infection, site not specified; R31.9 - Hematuria, unspecified Status: Acute (3) Hyperglycemia Status: Acute (4) CKD (chronic kidney disease) stage 4, GFR 15-29 ml/min Status: Chronic (5) Gastroparesis Status: Chronic (6) CAD (coronary artery disease) Status: Chronic (7) GERD (gastroesophageal reflux disease) Status: Chronic (8) Arthritis Status: Chronic - Allergies Allergies/Adverse Reactions: Allergies Allergy/AdvReac Type Severity Reaction Status Date / Time No Known Drug Allergies Allergy Verified 09/07/18 20:22
[2018-09-09] MEDS ORDERED: ROCEPHIN VIAL 1 GRAM IVP SCH (16:30)
--- NOTE | 2018-09-09 16:35 | PCM.PROG ---
Progress Note - Progress Note for Day of Date of Exam: 09/08/18 - Subjective Subjective: 38 WF ER ADMISSION WITH HYPONATREMIA, ELEVATED BLOOD SUGAR >700, SUSPECTED DKA, N/V, ACUTE ON CHRONIC RENAL FAILURE. PT SERUM ACETONE NEGATIVE. IMPROVING BLOOD SUGAR WITH INSULIN DRIP, REPEAT AM IMPROVED. PT NS AT 125CC/HR. NA 135 THIS AM, BUN 42, CREAT 2.58. PT UA INDICATED FOR CULTURE WITH RESULTS PENDING. PLAN TO TAPER OFF INSULIN DRIP. CONTINUE TO ENCOURAGE ORAL HYDRATION, STRICT I & OS, REPEAT ABG. BP MONITORING - Past Medical Family Social History Past Med/Fam/Surg Hx: No changes since H&P Allergies: Allergies No Known Drug Allergies Allergy (Verified 09/07/18 20:22) - Review of Systems ROS: No change since H&P - Vital Signs and I&O's Vital Signs: Temperature 98.2 F Pulse Rate [Right] 80 Pulse Rate 70 Respiratory Rate 13 Blood Pressure [Left Arm] 159/78 Blood Pressure [Right Arm] 126/77 Blood Pressure 104/57 O2 Sat by Pulse Oximetry 100 Intake and Output: Intake & Output 09/07/18 09/08/18 09/09/18 09/10/18 11:59 11:59 11:59 11:59 Intake Total 1141 / 1141 4098 / 4098 1243 / 1243 Output Total 1200 / 1200 1275 / 1275 Balance -59 / -59 2823 / 2823 1243 / 1243 - Physical Exam Oriented: Normal Eyes: Blurred Vision (CHRONIC VISION IMPAIRMENT) Ear: Normal Nose: Normal Throat: Normal Respiratory: Diminished Cardiovascular: Normal : Normal Auscultation: Bowel Sounds: Normal Tenderness: Suprapubic, Moderate Skin: Decreased Turgur Musculoskeletal: Left, Shoulder, Back:Thoracic, Back:Lumbar Psychiatric: Anxiety Affect: Anxious Speech Pattern: Clear, Appropriate - Laboratory and Diagnostics Result Diagrams: 09/09/18 05:34 09/09/18 05:34 Labs: 09/07/18 23:52 Blood Blood Culture - Preliminary 09/07/18 23:48 Blood Blood Culture - Preliminary 09/07/18 20:17 Urine,Clean Catch Urine Culture - Preliminary Laboratory WBC 5.2 X10^3/uL (3.6-10.0) 09/09/18 05:34 RBC 2.41 X10^6/uL (3.5-5.4) L 09/09/18 05:34 Hgb 7.7 g/dL (12.0-16.0) L 09/09/18 05:34 Hct 23.2 % (36.0-47.0) L 09/09/18 05:34 MCV 96.3 fL (80.0-100.0) 09/09/18 05:34 MCH 31.9 pg (27.0-34.0) 09/09/18 05:34 MCHC 33.2 g/dL (33.0-35.0) 09/09/18 05:34 RDW 14.3 % (11.6-16.5) 09/09/18 05:34 Plt Count 153 X10^3/uL (150.0-450.0) 09/09/18 05:34 Plt Count Comment Adequate (ADEQUATE) 09/09/18 05:34 MPV 9.9 fL (7.4-11.0) 09/09/18 05:34 Neut % (Auto) 65.5 % (42.0-75.0) 09/09/18 05:34 Lymph % (Auto) 23.5 % (21.0-51.0) 09/09/18 05:34 [place] % (Auto) 4.9 % (0.0-13.0) 09/09/18 05:34 Eos % (Auto) 3.9 % (0.9-2.9) H 09/09/18 05:34 Baso % (Auto) 2.2 % (0.2-1.0) H 09/09/18 05:34 Neut # (Auto) 3.4 x10^3/uL (2.2-4.8) 09/09/18 05:34 Lymph # (Auto) 1.2 X10^3/uL (1.3-2.9) L 09/09/18 05:34 [place] # (Auto) 0.3 x10^3/uL (0.3-0.8) 09/09/18 05:34 Eos # (Auto) 0.2 x10^3/uL (0.0-0.2) 09/09/18 05:34 Baso # (Auto) 0.1 X10^3/uL (0.0-0.1) 09/09/18 05:34 Absolute Nucleated RBC 0.0 /100WBC 09/09/18 05:34 Plt Morphology Comment Normal (NORMAL) 09/09/18 05:34 RBC Morphology Abnormal (NORMAL) A 09/09/18 05:34 Hypochromasia Slight A 09/09/18 05:34 Sample Site Rb 09/08/18 11:48 ABG pH 7.370 (7.35-7.45) 09/08/18 11:48 ABG pCO2 39.0 mmHg (35.0-45.0) 09/08/18 11:48 ABG pO2 76.0 mmHg (80.0-100.0) L 09/08/18 11:48 ABG HCO3 22.5 mmol/L (22-26) 09/08/18 11:48 ABG O2 Saturation 95.0 % (90-100) 09/08/18 11:48 ABG Base Excess -2.5 mmol/L (-2.0-2.0) L 09/08/18 11:48 Nathan Test Na 09/08/18 11:48 A-a Gradient 25.0 mmHg 09/08/18 11:48 FiO2 21.0 09/08/18 11:48 Blood Gas Comments Pt chapnicito well. cdn 09/08/18 11:48 Sodium 137 mmol/L (136-145) 09/09/18 05:34 Corrected Sodium 143 mmol/L (136-145) 09/09/18 05:34 Potassium 4.9 mmol/L (3.5-5.1) 09/09/18 05:34 Chloride 105 mmol/L (98-107) 09/09/18 05:34 Carbon Dioxide 21.1 mmol/L (21-32) 09/09/18 05:34 BUN 52 mg/dL (7-18) H 09/09/18 05:34 Creatinine 2.83 mg/dL (0.55-1.02) H 09/09/18 05:34 Est GFR (MDRD) Af Amer 24 (>60) L 09/09/18 05:34 Est GFR (MDRD) Non-Af 20 (>60) L 09/09/18 05:34 Glucose 332 mg/dL (65-99) H 09/09/18 05:34 POC Glucose (mg/dL) 266 mg/dL (65-99) H 09/09/18 15:43 Calcium 7.4 mg/dL (8.5-10.1) L 09/09/18 05:34 Corrected Calcium 8.9 mg/dL (8.5-10.1) 09/09/18 05:34 Magnesium 1.5 mg/dL (1.7-2.9) L 09/09/18 05:34 Total Bilirubin 0.20 mg/dL (0.2-1.0) 09/09/18 05:34 AST 8 Units/L (15-37) L 09/09/18 05:34 ALT 11 Units/L (12-78) L 09/09/18 05:34 Alkaline Phosphatase 62 Units/L (46-116) 09/09/18 05:34 Creatine Kinase 34 Units/L (26-192) 09/07/18 22:10 CK-MB (CK-2) < 1.0 ng/mL (0-4.0) 09/07/18 22:10 CK/CKMB % Calc 2.9 % (<4) 09/07/18 22:10 Troponin I < 0.02 ng/mL (0-1.5) 09/07/18 22:10 Total Protein 6.0 g/dL (6.4-8.2) L 09/09/18 05:34 Albumin 2.1 g/dL (3.4-5.0) L 09/09/18 05:34 Globulin 3.9 g/dL (2.5-4.5) 09/09/18 05:34 Albumin/Globulin Ratio 0.5 Ratio (1.1-2.1) L 09/09/18 05:34 Specimen Type Clean catch urine 09/07/18 20:17 Urine Color Yellow (YELLOW) 09/07/18 20:17 Urine Appearance Cloudy (CLEAR) 09/07/18 20:17 Urine pH 6.0 (5.0 - 8.0) 09/07/18 20:17 Ur Specific [place] 1.005 (1.000-1.030) 09/07/18 20:17 Urine Protein 3+ (NEGATIVE) 09/07/18 20:17 Urine Glucose (UA) 4+ (NEGATIVE) 09/07/18 20:17 Urine Ketones Negative (NEGATIVE) 09/07/18 20:17 Urine Occult Blood 3+ (NEGATIVE) 09/07/18 20:17 Urine Nitrite Negative (NEGATIVE) 09/07/18 20:17 Urine Bilirubin Negative (NEGATIVE) 09/07/18 20:17 Urine Acetone Negative (NEGATIVE) 09/08/18 00:01 Urine Urobilinogen Normal (NORMAL) 09/07/18 20:17 Ur Leukocyte Esterase 2+ (NEGATIVE) 09/07/18 20:17 Urine RBC 3-5 /HPF (NONE SEEN) 09/07/18 20:17 Urine WBC Tntc /HPF (NONE SEEN) 09/07/18 20:17 Ur Squamous Epith Cells Moderate /HPF (NEGATIVE) 09/07/18 20:17 Amorphous Sediment Trace /HPF (NEGATIVE) 09/07/18 20:17 Urine Bacteria Trace /HPF (NEGATIVE) 09/07/18 20:17 Ur Culture Indicated? Yes/culture set up 09/07/18 20:17 Acetone, Semi-Quant Negative (NEGATIVE) 09/08/18 05:40 - Plan (1) Diabetic ketoacidosis Status: Acute Qualifiers: Diabetes mellitus type: due to underlying condition Diabetes mellitus complication detail: without coma Qualified Code(s): E08.10 - Diabetes mellitus due to underlying condition with ketoacidosis without coma Plan: NSULIN DRIP PER PROTOCOL, IV HYDRATION. CONTINUOUS CARDIAC MONITORING. STRICT I & OS, AMLABS. UA, ACETONE NEGATIVE, REPEAT Q AM ABG. VERIFY HOME MEDICATION. BLOOD PRESSURE CONTROL, SUPPLEMENTAL O2. PAIN CONTROL. (2) UTI (urinary tract infection) Status: Acute Qualifiers: Urinary tract infection type: site unspecified Hematuria presence: with hematuria Qualified Code(s): N39.0 - Urinary tract infection, site not specified; R31.9 - Hematuria, unspecified (3) Hyperglycemia Status: Acute (4) CKD (chronic kidney disease) stage 4, GFR 15-29 ml/min Status: Chronic (5) Gastroparesis Status: Chronic (6) CAD (coronary artery disease) Status: Chronic (7) GERD (gastroesophageal reflux disease) Status: Chronic (8) Arthritis Status: Chronic
--- NOTE | 2018-09-09 16:38 | PCM.PROG ---
Progress Note - Progress Note for Day of Date of Exam: 09/09/18 - Subjective Subjective: 38 WF ER ADMISSION WITH HYPONATREMIA, ELEVATED BLOOD SUGAR >700, SUSPECTED DKA, N/V, ACUTE ON CHRONIC RENAL FAILURE. PT SERUM ACETONE NEGATIVE. IMPROVING BLOOD SUGAR WITH INSULIN DRIP, REPEAT AM IMPROVED. PT NS AT 125CC/HR, DECREASED TO 75CC WITH CXR DUE TO PTS HX OF CHF, WILL TITRATE IF STABLE CXR. NA 140 THIS AM, BUN 52, CREAT 2.83. PT EATING OK AT THIS TIME, CONTINUE WITH MILD NAUSEA, NO REPORTED VOMITING. PT UA INDICATED FOR CULTURE PENDING, +GRAM NEG RODS ADDED ROCEPHIN IGM IV DAILY.SSI AND BASAL INSULIN RESUMED CONTINUE TO ENCOURAGE ORAL HYDRATION, STRICT I & OS, REPEAT ABG. BP MONITORING - Past Medical Family Social History Past Med/Fam/Surg Hx: No changes since H&P Allergies: Allergies No Known Drug Allergies Allergy (Verified 09/07/18 20:22) - Review of Systems ROS: No change since H&P - Vital Signs and I&O's Vital Signs: Temperature 98.2 F Pulse Rate [Right] 80 Pulse Rate 70 Respiratory Rate 13 Blood Pressure [Left Arm] 159/78 Blood Pressure [Right Arm] 126/77 Blood Pressure 104/57 O2 Sat by Pulse Oximetry 100 Intake and Output: Intake & Output 09/07/18 09/08/18 09/09/18 09/10/18 11:59 11:59 11:59 11:59 Intake Total 1141 / 1141 4098 / 4098 1243 / 1243 Output Total 1200 / 1200 1275 / 1275 Balance -59 / -59 2823 / 2823 1243 / 1243 - Physical Exam Oriented: Normal Eyes: Blurred Vision (CHRONIC VISION IMPAIRMENT) Ear: Normal Nose: Normal Throat: Normal Respiratory: Diminished Cardiovascular: Normal : Normal Auscultation: Bowel Sounds: Normal Tenderness: Suprapubic, Moderate Skin: Decreased Turgur Musculoskeletal: Left, Shoulder, Back:Thoracic, Back:Lumbar Psychiatric: Anxiety Affect: Anxious Speech Pattern: Clear, Appropriate - Laboratory and Diagnostics Result Diagrams: 09/09/18 05:34 09/09/18 05:34 Labs: 09/07/18 23:52 Blood Blood Culture - Preliminary 09/07/18 23:48 Blood Blood Culture - Preliminary 09/07/18 20:17 Urine,Clean Catch Urine Culture - Preliminary Laboratory WBC 5.2 X10^3/uL (3.6-10.0) 09/09/18 05:34 RBC 2.41 X10^6/uL (3.5-5.4) L 09/09/18 05:34 Hgb 7.7 g/dL (12.0-16.0) L 09/09/18 05:34 Hct 23.2 % (36.0-47.0) L 09/09/18 05:34 MCV 96.3 fL (80.0-100.0) 09/09/18 05:34 MCH 31.9 pg (27.0-34.0) 09/09/18 05:34 MCHC 33.2 g/dL (33.0-35.0) 09/09/18 05:34 RDW 14.3 % (11.6-16.5) 09/09/18 05:34 Plt Count 153 X10^3/uL (150.0-450.0) 09/09/18 05:34 Plt Count Comment Adequate (ADEQUATE) 09/09/18 05:34 MPV 9.9 fL (7.4-11.0) 09/09/18 05:34 Neut % (Auto) 65.5 % (42.0-75.0) 09/09/18 05:34 Lymph % (Auto) 23.5 % (21.0-51.0) 09/09/18 05:34 [place] % (Auto) 4.9 % (0.0-13.0) 09/09/18 05:34 Eos % (Auto) 3.9 % (0.9-2.9) H 09/09/18 05:34 Baso % (Auto) 2.2 % (0.2-1.0) H 09/09/18 05:34 Neut # (Auto) 3.4 x10^3/uL (2.2-4.8) 09/09/18 05:34 Lymph # (Auto) 1.2 X10^3/uL (1.3-2.9) L 09/09/18 05:34 [place] # (Auto) 0.3 x10^3/uL (0.3-0.8) 09/09/18 05:34 Eos # (Auto) 0.2 x10^3/uL (0.0-0.2) 09/09/18 05:34 Baso # (Auto) 0.1 X10^3/uL (0.0-0.1) 09/09/18 05:34 Absolute Nucleated RBC 0.0 /100WBC 09/09/18 05:34 Plt Morphology Comment Normal (NORMAL) 09/09/18 05:34 RBC Morphology Abnormal (NORMAL) A 09/09/18 05:34 Hypochromasia Slight A 09/09/18 05:34 Sample Site Rb 09/08/18 11:48 ABG pH 7.370 (7.35-7.45) 09/08/18 11:48 ABG pCO2 39.0 mmHg (35.0-45.0) 09/08/18 11:48 ABG pO2 76.0 mmHg (80.0-100.0) L 09/08/18 11:48 ABG HCO3 22.5 mmol/L (22-26) 09/08/18 11:48 ABG O2 Saturation 95.0 % (90-100) 09/08/18 11:48 ABG Base Excess -2.5 mmol/L (-2.0-2.0) L 09/08/18 11:48 Nathan Test Na 09/08/18 11:48 A-a Gradient 25.0 mmHg 09/08/18 11:48 FiO2 21.0 09/08/18 11:48 Blood Gas Comments Pt [place] [facility]. cdn 09/08/18 11:48 Sodium 137 mmol/L (136-145) 09/09/18 05:34 Corrected Sodium 143 mmol/L (136-145) 09/09/18 05:34 Potassium 4.9 mmol/L (3.5-5.1) 09/09/18 05:34 Chloride 105 mmol/L (98-107) 09/09/18 05:34 Carbon Dioxide 21.1 mmol/L (21-32) 09/09/18 05:34 BUN 52 mg/dL (7-18) H 09/09/18 05:34 Creatinine 2.83 mg/dL (0.55-1.02) H 09/09/18 05:34 Est GFR (MDRD) Af Amer 24 (>60) L 09/09/18 05:34 Est GFR (MDRD) Non-Af 20 (>60) L 09/09/18 05:34 Glucose 332 mg/dL (65-99) H 09/09/18 05:34 POC Glucose (mg/dL) 266 mg/dL (65-99) H 09/09/18 15:43 Calcium 7.4 mg/dL (8.5-10.1) L 09/09/18 05:34 Corrected Calcium 8.9 mg/dL (8.5-10.1) 09/09/18 05:34 Magnesium 1.5 mg/dL (1.7-2.9) L 09/09/18 05:34 Total Bilirubin 0.20 mg/dL (0.2-1.0) 09/09/18 05:34 AST 8 Units/L (15-37) L 09/09/18 05:34 ALT 11 Units/L (12-78) L 09/09/18 05:34 Alkaline Phosphatase 62 Units/L (46-116) 09/09/18 05:34 Creatine Kinase 34 Units/L (26-192) 09/07/18 22:10 CK-MB (CK-2) < 1.0 ng/mL (0-4.0) 09/07/18 22:10 CK/CKMB % Calc 2.9 % (<4) 09/07/18 22:10 Troponin I < 0.02 ng/mL (0-1.5) 09/07/18 22:10 Total Protein 6.0 g/dL (6.4-8.2) L 09/09/18 05:34 Albumin 2.1 g/dL (3.4-5.0) L 09/09/18 05:34 Globulin 3.9 g/dL (2.5-4.5) 09/09/18 05:34 Albumin/Globulin Ratio 0.5 Ratio (1.1-2.1) L 09/09/18 05:34 Specimen Type Clean catch urine 09/07/18 20:17 Urine Color Yellow (YELLOW) 09/07/18 20:17 Urine Appearance Cloudy (CLEAR) 09/07/18 20:17 Urine pH 6.0 (5.0 - 8.0) 09/07/18 20:17 Ur Specific [place] 1.005 (1.000-1.030) 09/07/18 20:17 Urine Protein 3+ (NEGATIVE) 09/07/18 20:17 Urine Glucose (UA) 4+ (NEGATIVE) 09/07/18 20:17 Urine Ketones Negative (NEGATIVE) 09/07/18 20:17 Urine Occult Blood 3+ (NEGATIVE) 09/07/18 20:17 Urine Nitrite Negative (NEGATIVE) 09/07/18 20:17 Urine Bilirubin Negative (NEGATIVE) 09/07/18 20:17 Urine Acetone Negative (NEGATIVE) 09/08/18 00:01 Urine Urobilinogen Normal (NORMAL) 09/07/18 20:17 Ur Leukocyte Esterase 2+ (NEGATIVE) 09/07/18 20:17 Urine RBC 3-5 /HPF (NONE SEEN) 09/07/18 20:17 Urine WBC Tntc /HPF (NONE SEEN) 09/07/18 20:17 Ur Squamous Epith Cells Moderate /HPF (NEGATIVE) 09/07/18 20:17 Amorphous Sediment Trace /HPF (NEGATIVE) 09/07/18 20:17 Urine Bacteria Trace /HPF (NEGATIVE) 09/07/18 20:17 Ur Culture Indicated? Yes/culture set up 09/07/18 20:17 Acetone, Semi-Quant Negative (NEGATIVE) 09/08/18 05:40 - Plan (1) Diabetic ketoacidosis Status: Acute Qualifiers: Diabetes mellitus type: due to underlying condition Diabetes mellitus complication detail: without coma Qualified Code(s): E08.10 - Diabetes mellitus due to underlying condition with ketoacidosis without coma Plan: NSULIN DRIP PER PROTOCOL, IV HYDRATION. CONTINUOUS CARDIAC MONITORING. STRICT I & OS, AMLABS. UA, ACETONE NEGATIVE, REPEAT Q AM ABG. VERIFY HOME ME DICATION. BLOOD PRESSURE CONTROL, SUPPLEMENTAL O2. PAIN CONTROL. (2) UTI (urinary tract infection) Status: Acute Qualifiers: Urinary tract infection type: site unspecified Hematuria presence: with hematuria Qualified Code(s): N39.0 - Urinary tract infection, site not specified; R31.9 - Hematuria, unspecified (3) Hyperglycemia Status: Acute (4) CKD (chronic kidney disease) stage 4, GFR 15-29 ml/min Status: Chronic (5) Gastroparesis Status: Chronic (6) CAD (coronary artery disease) Status: Chronic (7) GERD (gastroesophageal reflux disease) Status: Chronic (8) Arthritis Status: Chronic
--- NOTE | 2018-09-09 16:38 | RAD ---
Exam: Portable chest History: 38-year-old female with metabolic ketoacidosis. Coronary artery disease. Hypertension. Comparison: Previous chest radiograph from 08/28/2018. Findings: Stable cardiomegaly is seen. Mild central vascular congestion is noted as well. Lungs are clear however with no infiltrate or significant effusion on either side. Impression: Cardiomegaly with mild central vascular congestion. Reported By:
[2018-09-09 17:24] LABS: ALBUMIN 2.2 g/dL (3.4-5.0); CALCIUM 7.3 mg/dL (8.5-10.1); COR CA(FOR HYPOALB) 8.7 mg/dL (8.5-10.1); CREATININE 2.88 mg/dL (0.55-1.02); TOTAL PROTEIN 6.3 g/dL (6.4-8.2)
[2018-09-09] MEDS: SNACK - Diabetic Appropriate PO SCH ×2 (21:00)
[2018-09-09] MEDS: CELEXA PO SCH (21:46)
[2018-09-10] MEDS ORDERED: ZOFRAN INJ 4 MG VIAL ONE (05:02)
[2018-09-10] MEDS: ZOFRAN INJ 4 MG VIAL IVP PRN (05:10)
[2018-09-10 05:20] LABS: BASOPHILS # (AUTO) 0.1 X10^3/uL (0.0-0.1); BASOPHILS % (AUTO) 2.1 % (0.2-1.0); EOSINOPHILS # (AUTO) 0.2 x10^3/uL (0.0-0.2); EOSINOPHILS % (AUTO) 4.2 % (0.9-2.9); HEMATOCRIT 24.4 % (36.0-47.0); LYMPHOCYTES # (AUTO) 1.2 X10^3/uL (1.3-2.9); LYMPHOCYTES % (AUTO) 27.5 % (21.0-51.0); MEAN CORPUSCULAR HEMOGLOBIN 31.8 pg (27.0-34.0); MEAN CORPUSCULAR VOLUME 96.4 fL (80.0-100.0); MONOCYTES # (AUTO) 0.3 x10^3/uL (0.3-0.8); MONOCYTES % (AUTO) 5.8 % (0.0-13.0); NEUTROPHILS # (AUTO) 2.7 x10^3/uL (2.2-4.8); NEUTROPHILS % (AUTO) 60.4 % (42.0-75.0); PLATELET COUNT 159 X10^3/uL (150.0-450.0); RED BLOOD COUNT 2.53 X10^6/uL (3.5-5.4); RED CELL DISTRIBUTION WIDTH 14.5 % (11.6-16.5); WHITE BLOOD COUNT 4.4 X10^3/uL (3.6-10.0)
[2018-09-10 05:33] LABS: ALBUMIN 2.3 g/dL (3.4-5.0); CALCIUM 7.2 mg/dL (8.5-10.1); CARBON DIOXIDE 18.5 mmol/L (21-32); COR CA(FOR HYPOALB) 8.6 mg/dL (8.5-10.1); CREATININE 2.67 mg/dL (0.55-1.02); MAGNESIUM 1.5 mg/dL (1.7-2.9); TOTAL PROTEIN 6.3 g/dL (6.4-8.2)
[2018-09-10] MEDS: REGLAN TAB 5 MG PO SCH ×4 (05:49→21:25)
[2018-09-10] MEDS: HumuLIN R SUBCUT PRN ×2 (06:22→12:05)
[2018-09-10] MEDS ORDERED: PHENERGAN INJ 25 MG IM ONE (07:47)
[2018-09-10] MEDS: PHENERGAN INJ 25 MG IM PRN (08:03)
[2018-09-10] MEDS ORDERED: LANTUS SC SCH (09:00)
[2018-09-10] MEDS: LANTUS SC SCH (09:00)
[2018-09-10] MEDS: MORPHINE SULFATE INJ 2 MG INJ IVP PRN ×3 (09:20→15:53)
[2018-09-10] MEDS ORDERED: MORPHINE SULFATE INJ 2 MG INJ ONE (09:45)
--- NOTE | 2018-09-10 09:45 | PCM.PROG ---
Progress Note - Progress Note for Day of Date of Exam: 09/10/18 - Subjective Subjective: 38 WF ER ADMISSION WITH HYPONATREMIA, ELEVATED BLOOD SUGAR >700, SUSPECTED DKA, N/V, ACUTE ON CHRONIC RENAL FAILURE. PT SERUM ACETONE NEGATIVE. IMPROVING BLOOD SUGAR WITH INSULIN DRIP, REPEAT AM IMPROVED. PT IV FLUIDS CHANGES TO 1/2NS AT 75CC/HR. REPEAT SERUM ACETONE, HAS BEEN NEGTAIVE SINCE ADMISSION HOWEVER PT STARTED WITH VOMITING AGAIN THIS AM & CO2 ON CMP 18. PO BICARB ORDERED, PT HAS HX OF RENAL INSUFFICENCY. BP IMPROVED, WILL REVIEW HOME BP MEDICATION FOR RESTART. PT HAS ECOLI IN URINE, WILL DC ROCEPHIN, START INVANZ WITH RENAL DOSE PER PHARMACY. - Past Medical Family Social History Past Med/Fam/Surg Hx: No changes since H&P Allergies: Allergies No Known Drug Allergies Allergy (Verified 09/07/18 20:22) - Review of Systems ROS: No change since H&P - Vital Signs and I&O's Vital Signs: Temperature 98.1 F Pulse Rate [Right] 80 Pulse Rate 886 Respiratory Rate 25 Blood Pressure [Left Arm] 159/78 Blood Pressure [Right Arm] 126/77 Blood Pressure 176/85 O2 Sat by Pulse Oximetry 99 Intake and Output: Intake & Output 09/07/18 09/08/18 09/09/18 09/10/18 11:59 11:59 11:59 11:59 Intake Total 1141 / 1141 4098 / 4098 2918 / 2918 Output Total 1200 / 1200 1275 / 1275 1050 / 1050 Balance -59 / -59 2823 / 2823 1868 / 1868 - Physical Exam Oriented: Normal Eyes: Blurred Vision (CHRONIC VISION IMPAIRMENT) Ear: Normal Nose: Normal Throat: Normal Respiratory: Diminished Cardiovascular: Normal : Normal Auscultation: Bowel Sounds: Normal Tenderness: Suprapubic, Moderate Skin: Decreased Turgur Musculoskeletal: Left, Shoulder, Back:Thoracic, Back:Lumbar Psychiatric: Anxiety Affect: Anxious Speech Pattern: Clear, Appropriate - Laboratory and Diagnostics Result Diagrams: 09/10/18 04:57 09/10/18 04:57 Labs: 09/07/18 20:17 Urine,Clean Catch Urine Culture - Final Escherichia Coli 09/07/18 23:52 Blood Blood Culture - Preliminary 09/07/18 23:48 Blood Blood Culture - Preliminary Laboratory WBC 4.4 X10^3/uL (3.6-10.0) 09/10/18 04:57 RBC 2.53 X10^6/uL (3.5-5.4) L 09/10/18 04:57 Hgb 8.0 g/dL (12.0-16.0) L 09/10/18 04:57 Hct 24.4 % (36.0-47.0) L 09/10/18 04:57 MCV 96.4 fL (80.0-100.0) 09/10/18 04:57 MCH 31.8 pg (27.0-34.0) 09/10/18 04:57 MCHC 33.0 g/dL (33.0-35.0) 09/10/18 04:57 RDW 14.5 % (11.6-16.5) 09/10/18 04:57 Plt Count 159 X10^3/uL (150.0-450.0) 09/10/18 04:57 Plt Count Comment Adequate (ADEQUATE) 09/09/18 05:34 MPV 10.0 fL (7.4-11.0) 09/10/18 04:57 Neut % (Auto) 60.4 % (42.0-75.0) 09/10/18 04:57 Lymph % (Auto) 27.5 % (21.0-51.0) 09/10/18 04:57 [place] % (Auto) 5.8 % (0.0-13.0) 09/10/18 04:57 Eos % (Auto) 4.2 % (0.9-2.9) H 09/10/18 04:57 Baso % (Auto) 2.1 % (0.2-1.0) H 09/10/18 04:57 Neut # (Auto) 2.7 x10^3/uL (2.2-4.8) 09/10/18 04:57 Lymph # (Auto) 1.2 X10^3/uL (1.3-2.9) L 09/10/18 04:57 [place] # (Auto) 0.3 x10^3/uL (0.3-0.8) 09/10/18 04:57 Eos # (Auto) 0.2 x10^3/uL (0.0-0.2) 09/10/18 04:57 Baso # (Auto) 0.1 X10^3/uL (0.0-0.1) 09/10/18 04:57 Absolute Nucleated RBC 0.1 /100WBC 09/10/18 04:57 Plt Morphology Comment Normal (NORMAL) 09/09/18 05:34 RBC Morphology Abnormal (NORMAL) A 09/09/18 05:34 Hypochromasia Slight A 09/09/18 05:34 Sample Site Rb 09/08/18 11:48 ABG pH 7.370 (7.35-7.45) 09/08/18 11:48 ABG pCO2 39.0 mmHg (35.0-45.0) 09/08/18 11:48 ABG pO2 76.0 mmHg (80.0-100.0) L 09/08/18 11:48 ABG HCO3 22.5 mmol/L (22-26) 09/08/18 11:48 ABG O2 Saturation 95.0 % (90-100) 09/08/18 11:48 ABG Base Excess -2.5 mmol/L (-2.0-2.0) L 09/08/18 11:48 Nathan Test Na 09/08/18 11:48 A-a Gradient 25.0 mmHg 09/08/18 11:48 FiO2 21.0 09/08/18 11:48 Blood Gas Comments Pt [place] [facility]. cdn 09/08/18 11:48 Sodium 137 mmol/L (136-145) 09/10/18 04:57 Corrected Sodium 140 mmol/L (136-145) 09/10/18 04:57 Potassium 4.5 mmol/L (3.5-5.1) 09/10/18 04:57 Chloride 107 mmol/L (98-107) 09/10/18 04:57 Carbon Dioxide 18.5 mmol/L (21-32) L 09/10/18 04:57 BUN 60 mg/dL (7-18) H 09/10/18 04:57 Creatinine 2.67 mg/dL (0.55-1.02) H 09/10/18 04:57 Est GFR (MDRD) Af Amer 26 (>60) L 09/10/18 04:57 Est GFR (MDRD) Non-Af 21 (>60) L 09/10/18 04:57 Glucose 241 mg/dL (65-99) H 09/10/18 04:57 POC Glucose (mg/dL) 257 mg/dL (65-99) H 09/10/18 06:08 Lactic Acid 1.8 mmol/L (0.4-2.0) 09/09/18 16:56 Calcium 7.2 mg/dL (8.5-10.1) L 09/10/18 04:57 Corrected Calcium 8.6 mg/dL (8.5-10.1) 09/10/18 04:57 Magnesium 1.5 mg/dL (1.7-2.9) L 09/10/18 04:57 Total Bilirubin 0.10 mg/dL (0.2-1.0) L 09/10/18 04:57 AST 10 Units/L (15-37) L 09/10/18 04:57 ALT 14 Units/L (12-78) 09/10/18 04:57 Alkaline Phosphatase 67 Units/L (46-116) 09/10/18 04:57 Creatine Kinase 34 Units/L (26-192) 09/07/18 22:10 CK-MB (CK-2) < 1.0 ng/mL (0-4.0) 09/07/18 22:10 CK/CKMB % Calc 2.9 % (<4) 09/07/18 22:10 Troponin I < 0.02 ng/mL (0-1.5) 09/07/18 22:10 Total Protein 6.3 g/dL (6.4-8.2) L 09/10/18 04:57 Albumin 2.3 g/dL (3.4-5.0) L 09/10/18 04:57 Globulin 4.0 g/dL (2.5-4.5) 09/10/18 04:57 Albumin/Globulin Ratio 0.6 Ratio (1.1-2.1) L 09/10/18 04:57 Specimen Type Clean catch urine 09/07/18 20:17 Urine Color Yellow (YELLOW) 09/07/18 20:17 Urine Appearance Cloudy (CLEAR) 09/07/18 20:17 Urine pH 6.0 (5.0 - 8.0) 09/07/18 20:17 Ur Specific [place] 1.005 (1.000-1.030) 09/07/18 20:17 Urine Protein 3+ (NEGATIVE) 09/07/18 20:17 Urine Glucose (UA) 4+ (NEGATIVE) 09/07/18 20:17 Urine Ketones Negative (NEGATIVE) 09/07/18 20:17 Urine Occult Blood 3+ (NEGATIVE) 09/07/18 20:17 Urine Nitrite Negative (NEGATIVE) 09/07/18 20:17 Urine Bilirubin Negative (NEGATIVE) 09/07/18 20:17 Urine Acetone Negative (NEGATIVE) 09/08/18 00:01 Urine Urobilinogen Normal (NORMAL) 09/07/18 20:17 Ur Leukocyte Esterase 2+ (NEGATIVE) 09/07/18 20:17 Urine RBC 3-5 /HPF (NONE SEEN) 09/07/18 20:17 Urine WBC Tntc /HPF (NONE SEEN) 09/07/18 20:17 Ur Squamous Epith Cells Moderate /HPF (NEGATIVE) 09/07/18 20:17 Amorphous Sediment Trace /HPF (NEGATIVE) 09/07/18 20:17 Urine Bacteria Trace /HPF (NEGATIVE) 09/07/18 20:17 Ur Culture Indicated? Yes/culture set up 09/07/18 20:17 Acetone, Semi-Quant Negative (NEGATIVE) 09/10/18 04:57 - Plan (1) UTI (urinary tract infection) Status: Acute Qualifiers: Urinary tract infection type: site unspecified Hematuria presence: with hematuria Qualified Code(s): N39.0 - Urinary tract infection, site not specified; R31.9 - Hematuria, unspecified Plan: IV HYDRATION, IV ATBX. UC COLLECTED ON ADMISSION. BLOOD SUGAR CONTROL. BP MONITORING. NAUSEA AND PAIN CONTROL. REPEAT AM LABS, SERUM ACETONE. OCCULT STOOL PENDING, ADD ANEMIA PANEL (2) Hyperglycemia Status: Acute (3) CKD (chronic kidney disease) stage 4, GFR 15-29 ml/min Status: Chronic (4) Gastroparesis Status: Chronic (5) CAD (coronary artery disease) Status: Chronic (6) GERD (gastroesophageal reflux disease) Status: Chronic (7) Arthritis Status: Chronic (8) Metabolic acidosis Status: Acute
[2018-09-10] MEDS: NS 1000 ML 1,000 ML IV SCH ×2 (13:47→16:30)
[2018-09-10] MEDS: ASPIRIN PO SCH (14:24)
[2018-09-10] MEDS: TOPAMAX PO SCH (14:26)
[2018-09-10] MEDS: SODIUM BICARBONATE TAB 650MG PO SCH ×2 (14:26→16:30)
[2018-09-10] MEDS: PLAVIX PO SCH (14:27)
[2018-09-10] MEDS: PROTONIX TAB 40 MG PO SCH (14:27)
[2018-09-10] MEDS: MAG-OX TAB PO SCH (14:28)
[2018-09-10] MEDS: LOPRESSOR TAB 25 MG PO SCH ×2 (14:28→21:25)
[2018-09-10] MEDS: INVANZ INJ 1 GM VIAL 1 GM in NS 100 ML IV + SPIKE MINIBAG* 100 ML IV SCH (14:28)
[2018-09-10] MEDS: LIPITOR TAB 20 MG PO SCH (14:28)
[2018-09-10] MEDS: EFFEXOR XR 75 MG CAP PO SCH (14:29)
[2018-09-10] MEDS: NORCO 10/325 TAB PO PRN (19:14)
[2018-09-10] MEDS: SNACK - Diabetic Appropriate PO SCH ×2 (21:00)
[2018-09-10] MEDS: CELEXA PO SCH (21:24)
[2018-09-11] MEDS: MORPHINE SULFATE INJ 2 MG INJ IVP PRN ×3 (01:18→21:30)
[2018-09-11] MEDS: NORCO 10/325 TAB PO PRN ×2 (04:24→14:25)
[2018-09-11] MEDS: PHENERGAN INJ 25 MG IM PRN ×3 (04:26→21:30)
[2018-09-11] MEDS: NS 1000 ML 1,000 ML IV SCH ×2 (06:05→06:27)
[2018-09-11 06:14] LABS: BASOPHILS # (AUTO) 0.1 X10^3/uL (0.0-0.1); BASOPHILS % (AUTO) 1.4 % (0.2-1.0); EOSINOPHILS # (AUTO) 0.2 x10^3/uL (0.0-0.2); EOSINOPHILS % (AUTO) 3.7 % (0.9-2.9); HEMATOCRIT 24.3 % (36.0-47.0); HEMOGLOBIN 8.1 g/dL (12.0-16.0); LYMPHOCYTES # (AUTO) 0.8 X10^3/uL (1.3-2.9); LYMPHOCYTES % (AUTO) 16.4 % (21.0-51.0); MEAN CORPUSCULAR HEMOGLOBIN 31.7 pg (27.0-34.0); MEAN CORPUSCULAR HGB CONC 33.1 g/dL (33.0-35.0); MEAN CORPUSCULAR VOLUME 95.7 fL (80.0-100.0); MEAN PLATELET VOLUME 9.8 fL (7.4-11.0); MONOCYTES # (AUTO) 0.2 x10^3/uL (0.3-0.8); MONOCYTES % (AUTO) 4.8 % (0.0-13.0); NEUTROPHILS # (AUTO) 3.7 x10^3/uL (2.2-4.8); NEUTROPHILS % (AUTO) 73.7 % (42.0-75.0); PLATELET COUNT 179 X10^3/uL (150.0-450.0); RED BLOOD COUNT 2.54 X10^6/uL (3.5-5.4); RED CELL DISTRIBUTION WIDTH 14.6 % (11.6-16.5)
[2018-09-11] MEDS: REGLAN TAB 5 MG PO SCH ×3 (06:26→16:16)
[2018-09-11] MEDS: SODIUM BICARBONATE TAB 650MG PO SCH ×3 (06:27→16:16)
[2018-09-11] MEDS: HumuLIN R SUBCUT PRN ×2 (06:34→13:56)
[2018-09-11 06:36] LABS: ALBUMIN 2.4 g/dL (3.4-5.0); CALCIUM 7.4 mg/dL (8.5-10.1); CARBON DIOXIDE 20.6 mmol/L (21-32); COR CA(FOR HYPOALB) 8.7 mg/dL (8.5-10.1); CREATININE 2.49 mg/dL (0.55-1.02); TOTAL PROTEIN 6.3 g/dL (6.4-8.2)
[2018-09-11] MEDS: LIPITOR TAB 20 MG PO SCH (10:44)
[2018-09-11] MEDS: ASPIRIN PO SCH (10:44)
[2018-09-11] MEDS: PROTONIX TAB 40 MG PO SCH (10:44)
[2018-09-11] MEDS: EFFEXOR XR 75 MG CAP PO SCH (10:44)
[2018-09-11] MEDS: LOPRESSOR TAB 25 MG PO SCH ×2 (10:44→21:00)
[2018-09-11] MEDS: PLAVIX PO SCH (10:46)
[2018-09-11] MEDS: LANTUS SC SCH (10:47)
[2018-09-11] MEDS: MAG-OX TAB PO SCH (10:47)
[2018-09-11] MEDS: TOPAMAX PO SCH (10:55)
[2018-09-11] MEDS: INVANZ INJ 1 GM VIAL 1 GM in NS 100 ML IV + SPIKE MINIBAG* 100 ML IV SCH (10:56)
[2018-09-11] MEDS ORDERED: NS 1/2 1000 ML IV 1,000 ML ONE (13:48)
[2018-09-11] MEDS: NS 1/2 1000 ML IV 1,000 ML IV SCH (13:54)
[2018-09-11] MEDS: ZOFRAN INJ 4 MG VIAL IVP PRN (14:26)
--- NOTE | 2018-09-11 18:01 | PCM.PROG ---
Progress Note - Progress Note for Day of Date of Exam: 09/11/18 - Subjective Subjective: 38 WF ER ADMISSION WITH HYPONATREMIA, ELEVATED BLOOD SUGAR >700, SUSPECTED DKA, N/V, ACUTE ON CHRONIC RENAL FAILURE. PT SERUM ACETONE NEGATIVE. IMPROVED BLOOD SUGAR WITH INSULIN DRIP, WHICH IS D/C, CURRENTLY ON LANTUS AND SSI. PT IV FLUIDS CHANGES TO 1/2NS AT 75CC/HR, WITH 250CC BOLUS X1. REPEAT SERUM ACETONE, HAS BEEN NEGTAIVE SINCE ADMISSION HOWEVER PT STARTED WITH VOMITING AGAIN THIS AM & CO2 ON CMP 20.6. PO BICARB ORDERED, PT HAS HX OF RENAL INSUFFICENCY. BP IMPROVED, WILL REVIEW HOME BP MEDICATION FOR POSSIBLE RESTART ANTIHYPERTENSIVES. PT HAS ECOLI IN URINE, ON IV INVANZ WITH RENAL DOSE PER PHARMACY. BUN 48, CREAT 2.49 BLOOD SUGAR 162. PT CONTINUES WITH VOMITING AND CO ABDOMINAL DISTENTION, LIZARRAGA FOR STRICT I& OS, AND KUB TODAY. REGLAN CHANGED TO IV. NPO WITH PERSISTENT VOMITING AND CLEAR LIQUIDS TOLERATED. ADD AMYLASE AND LIPASE TO TODAYS LABS - Past Medical Family Social History Past Med/Fam/Surg Hx: No changes since H&P Allergies: Allergies No Known Drug Allergies Allergy (Verified 09/07/18 20:22) - Review of Systems ROS: No change since H&P - Vital Signs and I&O's Vital Signs: Temperature 98.1 F Pulse Rate [Right] 80 Pulse Rate 67 Respiratory Rate 20 Blood Pressure [Left Arm] 159/78 Blood Pressure [Right Arm] 126/77 Blood Pressure 146/72 O2 Sat by Pulse Oximetry 96 Intake and Output: Intake & Output 09/09/18 09/10/18 09/11/18 09/12/18 11:59 11:59 11:59 11:59 Intake Total 4098 / 4098 2918 / 2918 1700 / 1700 1070 / 1070 Output Total 1275 / 1275 1050 / 1050 600 / 600 700 / 700 Balance 2823 / 2823 1868 / 1868 1100 / 1100 370 / 370 - Physical Exam Oriented: Normal Eyes: Blurred Vision (CHRONIC VISION IMPAIRMENT) Ear: Normal Nose: Normal Throat: Normal Respiratory: Diminished Cardiovascular: Normal : Normal Auscultation: Bowel Sounds: Normal Tenderness: Suprapubic, Moderate Skin: Decreased Turgur Musculoskeletal: Left, Shoulder, Back:Thoracic, Back:Lumbar, Tender (LLE), Deformity Psychiatric: Anxiety Affect: Anxious Speech Pattern: Clear, Appropriate - Laboratory and Diagnostics Result Diagrams: 09/11/18 05:40 09/11/18 05:40 Labs: 09/07/18 20:17 Urine,Clean Catch Urine Culture - Final Escherichia Coli 09/07/18 23:52 Blood Blood Culture - Preliminary 09/07/18 23:48 Blood Blood Culture - Preliminary Laboratory WBC 5.0 X10^3/uL (3.6-10.0) 09/11/18 05:40 RBC 2.54 X10^6/uL (3.5-5.4) L 09/11/18 05:40 Hgb 8.1 g/dL (12.0-16.0) L 09/11/18 05:40 Hct 24.3 % (36.0-47.0) L 09/11/18 05:40 MCV 95.7 fL (80.0-100.0) 09/11/18 05:40 MCH 31.7 pg (27.0-34.0) 09/11/18 05:40 MCHC 33.1 g/dL (33.0-35.0) 09/11/18 05:40 RDW 14.6 % (11.6-16.5) 09/11/18 05:40 Plt Count 179 X10^3/uL (150.0-450.0) 09/11/18 05:40 Plt Count Comment Adequate (ADEQUATE) 09/09/18 05:34 MPV 9.8 fL (7.4-11.0) 09/11/18 05:40 Neut % (Auto) 73.7 % (42.0-75.0) 09/11/18 05:40 Lymph % (Auto) 16.4 % (21.0-51.0) L 09/11/18 05:40 [place] % (Auto) 4.8 % (0.0-13.0) 09/11/18 05:40 Eos % (Auto) 3.7 % (0.9-2.9) H 09/11/18 05:40 Baso % (Auto) 1.4 % (0.2-1.0) H 09/11/18 05:40 Neut # (Auto) 3.7 x10^3/uL (2.2-4.8) 09/11/18 05:40 Lymph # (Auto) 0.8 X10^3/uL (1.3-2.9) L 09/11/18 05:40 [place] # (Auto) 0.2 x10^3/uL (0.3-0.8) L 09/11/18 05:40 Eos # (Auto) 0.2 x10^3/uL (0.0-0.2) 09/11/18 05:40 Baso # (Auto) 0.1 X10^3/uL (0.0-0.1) 09/11/18 05:40 Absolute Nucleated RBC 0.1 /100WBC 09/11/18 05:40 Plt Morphology Comment Normal (NORMAL) 09/09/18 05:34 RBC Morphology Abnormal (NORMAL) A 09/09/18 05:34 Hypochromasia Slight A 09/09/18 05:34 Sample Site Rb 09/08/18 11:48 ABG pH 7.370 (7.35-7.45) 09/08/18 11:48 ABG pCO2 39.0 mmHg (35.0-45.0) 09/08/18 11:48 ABG pO2 76.0 mmHg (80.0-100.0) L 09/08/18 11:48 ABG HCO3 22.5 mmol/L (22-26) 09/08/18 11:48 ABG O2 Saturation 95.0 % (90-100) 09/08/18 11:48 ABG Base Excess -2.5 mmol/L (-2.0-2.0) L 09/08/18 11:48 Nathan Test Na 09/08/18 11:48 A-a Gradient 25.0 mmHg 09/08/18 11:48 FiO2 21.0 09/08/18 11:48 Blood Gas Comments Pt [place] [facility]. cdn 09/08/18 11:48 Sodium 141 mmol/L (136-145) 09/11/18 05:40 Corrected Sodium 142 mmol/L (136-145) 09/11/18 05:40 Potassium 4.2 mmol/L (3.5-5.1) 09/11/18 05:40 Chloride 110 mmol/L (98-107) H 09/11/18 05:40 Carbon Dioxide 20.6 mmol/L (21-32) L 09/11/18 05:40 BUN 48 mg/dL (7-18) H 09/11/18 05:40 Creatinine 2.49 mg/dL (0.55-1.02) H 09/11/18 05:40 Est GFR (MDRD) Af Amer 28 (>60) L 09/11/18 05:40 Est GFR (MDRD) Non-Af 23 (>60) L 09/11/18 05:40 Glucose 162 mg/dL (65-99) H 09/11/18 05:40 POC Glucose (mg/dL) 171 mg/dL (65-99) H 09/11/18 16:07 Lactic Acid 1.8 mmol/L (0.4-2.0) 09/09/18 16:56 Calcium 7.4 mg/dL (8.5-10.1) L 09/11/18 05:40 Corrected Calcium 8.7 mg/dL (8.5-10.1) 09/11/18 05:40 Magnesium 1.5 mg/dL (1.7-2.9) L 09/10/18 04:57 Iron 63 ug/dL (50-175) 09/10/18 04:57 Transferrin 163 mg/dL (202-364) L 09/10/18 04:57 Ferritin 364 ng/mL (8-252) H 09/10/18 04:57 Total Bilirubin 0.20 mg/dL (0.2-1.0) 09/11/18 05:40 AST 11 Units/L (15-37) L 09/11/18 05:40 ALT 16 Units/L (12-78) 09/11/18 05:40 Alkaline Phosphatase 71 Units/L (46-116) 09/11/18 05:40 Creatine Kinase 34 Units/L (26-192) 09/07/18 22:10 CK-MB (CK-2) < 1.0 ng/mL (0-4.0) 09/07/18 22:10 CK/CKMB % Calc 2.9 % (<4) 09/07/18 22:10 Troponin I < 0.02 ng/mL (0-1.5) 09/07/18 22:10 Total Protein 6.3 g/dL (6.4-8.2) L 09/11/18 05:40 Albumin 2.4 g/dL (3.4-5.0) L 09/11/18 05:40 Globulin 3.9 g/dL (2.5-4.5) 09/11/18 05:40 Albumin/Globulin Ratio 0.6 Ratio (1.1-2.1) L 09/11/18 05:40 Vitamin B12 526 pg/mL (193-986) 09/10/18 04:57 Folate 4.9 ng/mL (>8.6) L 09/10/18 04:57 Specimen Type Clean catch urine 09/07/18 20:17 Urine Color Yellow (YELLOW) 09/07/18 20:17 Urine Appearance Cloudy (CLEAR) 09/07/18 20:17 Urine pH 6.0 (5.0 - 8.0) 09/07/18 20:17 Ur Specific [place] 1.005 (1.000-1.030) 09/07/18 20:17 Urine Protein 3+ (NEGATIVE) 09/07/18 20:17 Urine Glucose (UA) 4+ (NEGATIVE) 09/07/18 20:17 Urine Ketones Negative (NEGATIVE) 09/07/18 20:17 Urine Occult Blood 3+ (NEGATIVE) 09/07/18 20:17 Urine Nitrite Negative (NEGATIVE) 09/07/18 20:17 Urine Bilirubin Negative (NEGATIVE) 09/07/18 20:17 Urine Acetone Negative (NEGATIVE) 09/08/18 00:01 Urine Urobilinogen Normal (NORMAL) 09/07/18 20:17 Ur Leukocyte Esterase 2+ (NEGATIVE) 09/07/18 20:17 Urine RBC 3-5 /HPF (NONE SEEN) 09/07/18 20:17 Urine WBC Tntc /HPF (NONE SEEN) 09/07/18 20:17 Ur Squamous Epith Cells Moderate /HPF (NEGATIVE) 09/07/18 20:17 Amorphous Sediment Trace /HPF (NEGATIVE) 09/07/18 20:17 Urine Bacteria Trace /HPF (NEGATIVE) 09/07/18 20:17 Ur Culture Indicated? Yes/culture set up 09/07/18 20:17 Acetone, Semi-Quant Negative (NEGATIVE) 09/10/18 04:57 - Plan (1) UTI (urinary tract infection) Status: Acute Qualifiers: Urinary tract infection type: site unspecified Hematuria presence: with hematuria Qualified Code(s): N39.0 - Urinary tract infection, site not specified; R31.9 - Hematuria, unspecified Plan: IV HYDRATION, IV ATBX. UC COLLECTED ON ADMISSION, +ECOLI ON IV INVANZ. BLOOD SUGAR CONTROL. BP MONITORING. NAUSEA AND PAIN CONTROL. REPEAT AM LABS, SERUM ACETONES NEGATIVE. OCCULT STOOL PENDING (2) Hyperglycemia Status: Acute (3) CKD (chronic kidney disease) stage 4, GFR 15-29 ml/min Status: Chronic (4) Gastroparesis Status: Chronic (5) CAD (coronary artery disease) Status: Chronic (6) GERD (gastroesophageal reflux disease) Status: Chronic (7) Arthritis Status: Chronic (8) Metabolic acidosis Status: Acute
[2018-09-11 18:13] LABS: AMYLASE 18 Units/L (25-115); LIPASE 68 Units/L (73-393)
[2018-09-11] MEDS: REGLAN INJ 10 MG VIAL IVP SCH ×2 (19:06→21:00)
[2018-09-11] MEDS: CELEXA PO SCH (21:00)
[2018-09-12] MEDS: SNACK - Diabetic Appropriate PO SCH ×2 (00:54→21:17)
[2018-09-12] MEDS: NS 1/2 1000 ML IV 1,000 ML IV SCH ×3 (03:00→18:24)
[2018-09-12] MEDS ORDERED: NS 1/2 1000 ML IV 1,000 ML ONE ×2 (03:39→18:24)
[2018-09-12] MEDS: MORPHINE SULFATE INJ 2 MG INJ IVP PRN ×4 (03:45→21:35)
[2018-09-12] MEDS: ZOFRAN INJ 4 MG VIAL IVP PRN ×2 (03:45→18:22)
[2018-09-12] MEDS: SODIUM BICARBONATE TAB 650MG PO SCH ×3 (06:00→16:22)
[2018-09-12 06:07] LABS: BASOPHILS # (AUTO) 0.1 X10^3/uL (0.0-0.1); BASOPHILS % (AUTO) 1.5 % (0.2-1.0); EOSINOPHILS # (AUTO) 0.2 x10^3/uL (0.0-0.2); HEMATOCRIT 23.7 % (36.0-47.0); MEAN CORPUSCULAR HEMOGLOBIN 31.9 pg (27.0-34.0); MEAN CORPUSCULAR HGB CONC 33.6 g/dL (33.0-35.0); MEAN CORPUSCULAR VOLUME 94.9 fL (80.0-100.0); MEAN PLATELET VOLUME 9.8 fL (7.4-11.0); MONOCYTES # (AUTO) 0.2 x10^3/uL (0.3-0.8); MONOCYTES % (AUTO) 4.4 % (0.0-13.0); NEUTROPHILS # (AUTO) 3.8 x10^3/uL (2.2-4.8); NEUTROPHILS % (AUTO) 72.1 % (42.0-75.0); PLATELET COUNT 204 X10^3/uL (150.0-450.0); RED CELL DISTRIBUTION WIDTH 14.4 % (11.6-16.5); WHITE BLOOD COUNT 5.3 X10^3/uL (3.6-10.0)
[2018-09-12 06:14] LABS: ALBUMIN 2.4 g/dL (3.4-5.0); CALCIUM 7.4 mg/dL (8.5-10.1); CARBON DIOXIDE 19.1 mmol/L (21-32); COR CA(FOR HYPOALB) 8.7 mg/dL (8.5-10.1); CREATININE 2.02 mg/dL (0.55-1.02); TOTAL PROTEIN 6.1 g/dL (6.4-8.2)
[2018-09-12] MEDS: HumuLIN R SUBCUT PRN (06:55)
[2018-09-12] MEDS: REGLAN INJ 10 MG VIAL IVP SCH ×3 (08:56→21:45)
[2018-09-12] MEDS: INVANZ INJ 1 GM VIAL 1 GM in NS 100 ML IV + SPIKE MINIBAG* 100 ML IV SCH (08:58)
[2018-09-12] MEDS: PHENERGAN INJ 25 MG IM PRN (08:59)
[2018-09-12] MEDS: MAG-OX TAB PO SCH (10:00)
[2018-09-12] MEDS: PROTONIX TAB 40 MG PO SCH (10:00)
[2018-09-12] MEDS: ASPIRIN PO SCH (10:00)
[2018-09-12] MEDS: LOPRESSOR TAB 25 MG PO SCH ×2 (10:00→21:39)
[2018-09-12] MEDS: LIPITOR TAB 20 MG PO SCH (10:01)
[2018-09-12] MEDS: EFFEXOR XR 75 MG CAP PO SCH (10:01)
[2018-09-12] MEDS: PLAVIX PO SCH (10:01)
[2018-09-12] MEDS: TOPAMAX PO SCH (10:05)
[2018-09-12] MEDS: LANTUS SC SCH (10:09)
[2018-09-12] MEDS ORDERED: APRESOLINE INJ 20 MG VIAL IVP ONE (12:01)
--- NOTE | 2018-09-12 12:05 | RAD ---
History: Nasogastric tube placement Study: KUB Comparison: Yesterday Findings: There is a nasogastric tube with the tip just beyond the fundus of the stomach. There is mild gaseous distention of the stomach. There are cholecystectomy clips. There is prominent gas in transverse colon and proximal small bowel. Impression: Probable ileus. Nasogastric tube in the proximal body of the stomach Reported By:
[2018-09-12] MEDS ORDERED: DULCOLAX SUPPOSITORY 10 MG RECTAL ONE (18:20)
--- NOTE | 2018-09-12 18:20 | PCM.PROG ---
Progress Note - Progress Note for Day of Date of Exam: 09/12/18 - Subjective Subjective: 38 WF ER ADMISSION WITH HYPONATREMIA, ELEVATED BLOOD SUGAR >700, SUSPECTED DKA, N/V, ACUTE ON CHRONIC RENAL FAILURE. PT SERUM ACETONE NEGATIVE. IMPROVED BLOOD SUGAR WITH INSULIN DRIP, WHICH IS D/C, CURRENTLY ON LANTUS AND SSI. PT IV FLUIDS CHANGES TO 1/2NS AT 75CC/HR. PT WITH VOMITING AGAIN THIS AM & CO2 20.6 ON CMP 20.6. PO BICARB ORDERED, PT HAS HX OF RENAL INSUFFICENCY. BP IMPROVED, WILL REVIEW HOME BP MEDICATION FOR POSSIBLE RESTART ANTIHYPERTENSIVES. PT HAS ECOLI IN URINE, ON IV INVANZ WITH RENAL DOSE PER PHARMACY. BUN 38, CREAT 2.02. BLOOD SUGAR STABLE, KUB WITH ILEUS, NG TUBE AT LIS. DULCOLAX SUPP DUE TO CONSTIPATION - Past Medical Family Social History Past Med/Fam/Surg Hx: No changes since H&P Allergies: Allergies No Known Drug Allergies Allergy (Verified 09/07/18 20:22) - Review of Systems ROS: No change since H&P - Vital Signs and I&O's Vital Signs: Temperature 97.8 F Pulse Rate [Right] 80 Pulse Rate 70 Respiratory Rate 12 Blood Pressure [Left Arm] 159/78 Blood Pressure [Right Arm] 126/77 Blood Pressure 187/87 O2 Sat by Pulse Oximetry 97 Intake and Output: Intake & Output 09/10/18 09/11/18 09/12/18 09/13/18 11:59 11:59 11:59 11:59 Intake Total 2918 / 2918 1700 / 1700 2150 / 2150 710 / 710 Output Total 1050 / 1050 1600 / 1600 1700 / 1700 1000 / 1000 Balance 1868 / 1868 100 / 100 450 / 450 -290 / -290 - Physical Exam Oriented: Normal Eyes: Blurred Vision (CHRONIC VISION IMPAIRMENT) Ear: Normal Nose: Normal Throat: Normal Respiratory: Diminished Cardiovascular: Normal : Normal Auscultation: Bowel Sounds: Decreased Tenderness: Diffuse (MODERATE DISTENTION) Skin: Decreased Turgur Musculoskeletal: Left, Shoulder, Back:Thoracic, Back:Lumbar, Tender (LLE), Deformity Psychiatric: Anxiety Affect: Anxious Speech Pattern: Clear, Appropriate - Laboratory and Diagnostics Result Diagrams: 09/12/18 05:35 09/12/18 05:35 Labs: 09/07/18 20:17 Urine,Clean Catch Urine Culture - Final Escherichia Coli 09/07/18 23:52 Blood Blood Culture - Preliminary 09/07/18 23:48 Blood Blood Culture - Preliminary Laboratory WBC 5.3 X10^3/uL (3.6-10.0) 09/12/18 05:35 RBC 2.50 X10^6/uL (3.5-5.4) L 09/12/18 05:35 Hgb 8.0 g/dL (12.0-16.0) L 09/12/18 05:35 Hct 23.7 % (36.0-47.0) L 09/12/18 05:35 MCV 94.9 fL (80.0-100.0) 09/12/18 05:35 MCH 31.9 pg (27.0-34.0) 09/12/18 05:35 MCHC 33.6 g/dL (33.0-35.0) 09/12/18 05:35 RDW 14.4 % (11.6-16.5) 09/12/18 05:35 Plt Count 204 X10^3/uL (150.0-450.0) 09/12/18 05:35 Plt Count Comment Adequate (ADEQUATE) 09/09/18 05:34 MPV 9.8 fL (7.4-11.0) 09/12/18 05:35 Neut % (Auto) 72.1 % (42.0-75.0) 09/12/18 05:35 Lymph % (Auto) 18.0 % (21.0-51.0) L 09/12/18 05:35 [place] % (Auto) 4.4 % (0.0-13.0) 09/12/18 05:35 Eos % (Auto) 4.0 % (0.9-2.9) H 09/12/18 05:35 Baso % (Auto) 1.5 % (0.2-1.0) H 09/12/18 05:35 Neut # (Auto) 3.8 x10^3/uL (2.2-4.8) 09/12/18 05:35 Lymph # (Auto) 1.0 X10^3/uL (1.3-2.9) L 09/12/18 05:35 [place] # (Auto) 0.2 x10^3/uL (0.3-0.8) L 09/12/18 05:35 Eos # (Auto) 0.2 x10^3/uL (0.0-0.2) 09/12/18 05:35 Baso # (Auto) 0.1 X10^3/uL (0.0-0.1) 09/12/18 05:35 Absolute Nucleated RBC 0.0 /100WBC 09/12/18 05:35 Plt Morphology Comment Normal (NORMAL) 09/09/18 05:34 RBC Morphology Abnormal (NORMAL) A 09/09/18 05:34 Hypochromasia Slight A 09/09/18 05:34 Sample Site Rb 09/08/18 11:48 ABG pH 7.370 (7.35-7.45) 09/08/18 11:48 ABG pCO2 39.0 mmHg (35.0-45.0) 09/08/18 11:48 ABG pO2 76.0 mmHg (80.0-100.0) L 09/08/18 11:48 ABG HCO3 22.5 mmol/L (22-26) 09/08/18 11:48 ABG O2 Saturation 95.0 % (90-100) 09/08/18 11:48 ABG Base Excess -2.5 mmol/L (-2.0-2.0) L 09/08/18 11:48 Nathan Test Na 09/08/18 11:48 A-a Gradient 25.0 mmHg 09/08/18 11:48 FiO2 21.0 09/08/18 11:48 Blood Gas Comments Pt [place] well. cdn 09/08/18 11:48 Sodium 142 mmol/L (136-145) 09/12/18 05:35 Corrected Sodium 144 mmol/L (136-145) 09/12/18 05:35 Potassium 4.5 mmol/L (3.5-5.1) 09/12/18 05:35 Chloride 111 mmol/L (98-107) H 09/12/18 05:35 Carbon Dioxide 19.1 mmol/L (21-32) L 09/12/18 05:35 BUN 38 mg/dL (7-18) H 09/12/18 05:35 Creatinine 2.02 mg/dL (0.55-1.02) H 09/12/18 05:35 Est GFR (MDRD) Af Amer 35 (>60) L 09/12/18 05:35 Est GFR (MDRD) Non-Af 29 (>60) L 09/12/18 05:35 Glucose 165 mg/dL (65-99) H 09/12/18 05:35 POC Glucose (mg/dL) 139 mg/dL (65-99) H 09/12/18 15:52 Lactic Acid 1.8 mmol/L (0.4-2.0) 09/09/18 16:56 Calcium 7.4 mg/dL (8.5-10.1) L 09/12/18 05:35 Corrected Calcium 8.7 mg/dL (8.5-10.1) 09/12/18 05:35 Magnesium 1.5 mg/dL (1.7-2.9) L 09/10/18 04:57 Iron 63 ug/dL (50-175) 09/10/18 04:57 Transferrin 163 mg/dL (202-364) L 09/10/18 04:57 Ferritin 364 ng/mL (8-252) H 09/10/18 04:57 Total Bilirubin 0.30 mg/dL (0.2-1.0) 09/12/18 05:35 AST 27 Units/L (15-37) 09/12/18 05:35 ALT 24 Units/L (12-78) 09/12/18 05:35 Alkaline Phosphatase 94 Units/L (46-116) 09/12/18 05:35 Creatine Kinase 34 Units/L (26-192) 09/07/18 22:10 CK-MB (CK-2) < 1.0 ng/mL (0-4.0) 09/07/18 22:10 CK/CKMB % Calc 2.9 % (<4) 09/07/18 22:10 Troponin I < 0.02 ng/mL (0-1.5) 09/07/18 22:10 Total Protein 6.1 g/dL (6.4-8.2) L 09/12/18 05:35 Albumin 2.4 g/dL (3.4-5.0) L 09/12/18 05:35 Globulin 3.7 g/dL (2.5-4.5) 09/12/18 05:35 Albumin/Globulin Ratio 0.6 Ratio (1.1-2.1) L 09/12/18 05:35 Amylase 18 Units/L (25-115) L 09/11/18 05:40 Lipase 68 Units/L (73-393) L 09/11/18 05:40 Vitamin B12 526 pg/mL (193-986) 09/10/18 04:57 Folate 4.9 ng/mL (>8.6) L 09/10/18 04:57 Specimen Type Clean catch urine 09/07/18 20:17 Urine Color Yellow (YELLOW) 09/07/18 20:17 Urine Appearance Cloudy (CLEAR) 09/07/18 20:17 Urine pH 6.0 (5.0 - 8.0) 09/07/18 20:17 Ur Specific [place] 1.005 (1.000-1.030) 09/07/18 20:17 Urine Protein 3+ (NEGATIVE) 09/07/18 20:17 Urine Glucose (UA) 4+ (NEGATIVE) 09/07/18 20:17 Urine Ketones Negative (NEGATIVE) 09/07/18 20:17 Urine Occult Blood 3+ (NEGATIVE) 09/07/18 20:17 Urine Nitrite Negative (NEGATIVE) 09/07/18 20:17 Urine Bilirubin Negative (NEGATIVE) 09/07/18 20:17 Urine Acetone Negative (NEGATIVE) 09/08/18 00:01 Urine Urobilinogen Normal (NORMAL) 09/07/18 20:17 Ur Leukocyte Esterase 2+ (NEGATIVE) 09/07/18 20:17 Urine RBC 3-5 /HPF (NONE SEEN) 09/07/18 20:17 Urine WBC Tntc /HPF (NONE SEEN) 09/07/18 20:17 Ur Squamous Epith Cells Moderate /HPF (NEGATIVE) 09/07/18 20:17 Amorphous Sediment Trace /HPF (NEGATIVE) 09/07/18 20:17 Urine Bacteria Trace /HPF (NEGATIVE) 09/07/18 20:17 Ur Culture Indicated? Yes/culture set up 09/07/18 20:17 Acetone, Semi-Quant Negative (NEGATIVE) 09/10/18 04:57 - Plan (1) UTI (urinary tract infection) Status: Acute Qualifiers: Urinary tract infection type: site unspecified Hematuria presence: with hematuria Qualified Code(s): N39.0 - Urinary tract infection, site not specified; R31.9 - Hematuria, unspecified Plan: IV HYDRATION, IV ATBX. UC COLLECTED ON ADMISSION, +ECOLI ON IV INVANZ. BLOOD SUGAR CONTROL. BP MONITORING. NAUSEA AND PAIN CONTROL. REPEAT AM LABS, SERUM ACETONES NEGATIVE. OCCULT STOOL PENDING (2) Hyperglycemia Status: Acute (3) CKD (chronic kidney disease) stage 4, GFR 15-29 ml/min Status: Chronic (4) Gastroparesis Status: Chronic (5) CAD (coronary artery disease) Status: Chronic (6) GERD (gastroesophageal reflux disease) Status: Chronic (7) Arthritis Status: Chronic (8) Metabolic acidosis Status: Acute (9) Ileus Status: Acute Plan: WITH N/V. NG TUBE AT LIS
[2018-09-12] MEDS: CELEXA PO SCH (21:39)
[2018-09-12] MEDS: PROTONIX INJ 40 MG VIAL IVP SCH (21:41)
[2018-09-13] MEDS: PHENERGAN INJ 25 MG IM PRN (00:20)
[2018-09-13] MEDS: REGLAN INJ 10 MG VIAL IVP SCH ×4 (03:08→21:16)
[2018-09-13] MEDS: MORPHINE SULFATE INJ 2 MG INJ IVP PRN ×3 (03:27→16:55)
[2018-09-13] MEDS ORDERED: NS 1/2 1000 ML IV 1,000 ML ONE ×2 (04:56→17:36)
[2018-09-13] MEDS: NS 1/2 1000 ML IV 1,000 ML IV SCH ×2 (04:59→17:40)
[2018-09-13] MEDS: ZOFRAN INJ 4 MG VIAL IVP PRN (05:20)
[2018-09-13] MEDS: SODIUM BICARBONATE TAB 650MG PO SCH ×3 (06:22→17:32)
[2018-09-13] MEDS: NORCO 10/325 TAB PO PRN ×2 (06:22→21:18)
[2018-09-13 08:27] LABS: BASOPHILS # (AUTO) 0.1 X10^3/uL (0.0-0.1); BASOPHILS % (AUTO) 1.7 % (0.2-1.0); EOSINOPHILS # (AUTO) 0.1 x10^3/uL (0.0-0.2); EOSINOPHILS % (AUTO) 2.7 % (0.9-2.9); LYMPHOCYTES # (AUTO) 0.9 X10^3/uL (1.3-2.9); LYMPHOCYTES % (AUTO) 16.2 % (21.0-51.0); MEAN CORPUSCULAR HEMOGLOBIN 31.6 pg (27.0-34.0); MEAN CORPUSCULAR HGB CONC 33.2 g/dL (33.0-35.0); MEAN CORPUSCULAR VOLUME 95.1 fL (80.0-100.0); MEAN PLATELET VOLUME 9.3 fL (7.4-11.0); MONOCYTES # (AUTO) 0.2 x10^3/uL (0.3-0.8); MONOCYTES % (AUTO) 4.7 % (0.0-13.0); NEUTROPHILS # (AUTO) 3.9 x10^3/uL (2.2-4.8); NEUTROPHILS % (AUTO) 74.7 % (42.0-75.0); PLATELET COUNT 243 X10^3/uL (150.0-450.0); RED BLOOD COUNT 2.53 X10^6/uL (3.5-5.4); RED CELL DISTRIBUTION WIDTH 14.5 % (11.6-16.5); WHITE BLOOD COUNT 5.2 X10^3/uL (3.6-10.0)
[2018-09-13 08:34] LABS: ALBUMIN 2.5 g/dL (3.4-5.0); CALCIUM 7.6 mg/dL (8.5-10.1); COR CA(FOR HYPOALB) 8.8 mg/dL (8.5-10.1); CREATININE 1.88 mg/dL (0.55-1.02); TOTAL PROTEIN 6.1 g/dL (6.4-8.2)
[2018-09-13] MEDS: INVANZ INJ 1 GM VIAL 1 GM in NS 100 ML IV + SPIKE MINIBAG* 100 ML IV SCH (09:34)
[2018-09-13] MEDS: LANTUS SC SCH (09:34)
[2018-09-13] MEDS: ASPIRIN PO SCH (09:34)
[2018-09-13] MEDS: EFFEXOR XR 75 MG CAP PO SCH (09:34)
[2018-09-13] MEDS: LIPITOR TAB 20 MG PO SCH (09:35)
[2018-09-13] MEDS: TOPAMAX PO SCH (09:35)
[2018-09-13] MEDS: PROTONIX INJ 40 MG VIAL IVP SCH ×2 (09:35→21:16)
[2018-09-13] MEDS: LOPRESSOR TAB 25 MG PO SCH ×2 (09:36→21:17)
[2018-09-13] MEDS: MAG-OX TAB PO SCH (09:36)
[2018-09-13] MEDS: PLAVIX PO SCH (09:36)
--- NOTE | 2018-09-13 12:59 | RAD ---
Examination: KUB History: Nausea and vomiting, NG tube Comparison 09/12/2018 Findings: There is moderate gaseous distention of the colon extending to the mid descending portion of the large bowel. There is little or no gas in the rectosigmoid. Surgical clips right upper quadrant. NG tube is present in the proximal stomach. Impression: Described intestinal gas pattern most consistent with colon ileus. A left colon obstruction could produce similar findings. Reported By:
[2018-09-13] MEDS ORDERED: NS 1/2 1000 ML IV 1,000 ML IV SCH (18:00)
[2018-09-13] MEDS: MILK OF MAGNESIA PO SCH (21:16)
[2018-09-13] MEDS: COLACE CAP 100 MG PO SCH (21:16)
[2018-09-13] MEDS: CELEXA PO SCH (21:17)
[2018-09-13] MEDS: SNACK - Diabetic Appropriate PO SCH (21:18)
[2018-09-14] MEDS: MORPHINE SULFATE INJ 2 MG INJ IVP PRN ×4 (00:53→22:17)
[2018-09-14] MEDS: REGLAN INJ 10 MG VIAL IVP SCH ×4 (03:42→20:57)
[2018-09-14] MEDS: NORCO 10/325 TAB PO PRN (04:11)
[2018-09-14 05:38] LABS: ALANINE AMINOTRANSFERASE 26 Units/L (12-78); ALBUMIN 2.5 g/dL (3.4-5.0); ALKALINE PHOSPHATASE 81 Units/L (46-116); ASPARTATE AMINO TRANSFERASE 21 Units/L (15-37); BLOOD UREA NITROGEN 26 mg/dL (7-18); CALCIUM 7.8 mg/dL (8.5-10.1); CARBON DIOXIDE 20.3 mmol/L (21-32); CHLORIDE 111 mmol/L (98-107); CREATININE 1.86 mg/dL (0.55-1.02); SODIUM 143 mmol/L (136-145); eGFR NON BLACK RACES 32 (>60)
[2018-09-14] MEDS: SODIUM BICARBONATE TAB 650MG PO SCH ×3 (06:06→17:18)
[2018-09-14] MEDS ORDERED: NS 1/2 1000 ML IV 1,000 ML ONE (06:07)
[2018-09-14] MEDS: NS 1/2 1000 ML IV 1,000 ML IV SCH (06:08)
[2018-09-14 06:50] LABS: BASOPHILS # (AUTO) 0.1 X10^3/uL (0.0-0.1); BASOPHILS % (AUTO) 1.3 % (0.2-1.0); EOSINOPHILS # (AUTO) 0.3 x10^3/uL (0.0-0.2); EOSINOPHILS % (AUTO) 6.1 % (0.9-2.9); HEMATOCRIT 24.8 % (36.0-47.0); HEMOGLOBIN 8.3 g/dL (12.0-16.0); LYMPHOCYTES # (AUTO) 1.5 X10^3/uL (1.3-2.9); MEAN CORPUSCULAR HEMOGLOBIN 31.5 pg (27.0-34.0); MEAN CORPUSCULAR HGB CONC 33.3 g/dL (33.0-35.0); MEAN CORPUSCULAR VOLUME 94.7 fL (80.0-100.0); MEAN PLATELET VOLUME 9.2 fL (7.4-11.0); MONOCYTES # (AUTO) 0.4 x10^3/uL (0.3-0.8); MONOCYTES % (AUTO) 7.3 % (0.0-13.0); NEUTROPHILS % (AUTO) 56.3 % (42.0-75.0); PLATELET COUNT 244 X10^3/uL (150.0-450.0); RED BLOOD COUNT 2.62 X10^6/uL (3.5-5.4); RED CELL DISTRIBUTION WIDTH 14.6 % (11.6-16.5); WHITE BLOOD COUNT 5.3 X10^3/uL (3.6-10.0)
[2018-09-14] MEDS: ASPIRIN PO SCH (09:37)
[2018-09-14] MEDS: PROTONIX INJ 40 MG VIAL IVP SCH ×2 (09:38→20:57)
[2018-09-14] MEDS: LIPITOR TAB 20 MG PO SCH (09:38)
[2018-09-14] MEDS: PLAVIX PO SCH (09:38)
[2018-09-14] MEDS: LOPRESSOR TAB 25 MG PO SCH ×2 (09:38→20:58)
[2018-09-14] MEDS: TOPAMAX PO SCH (09:38)
[2018-09-14] MEDS: MAG-OX TAB PO SCH (09:39)
[2018-09-14] MEDS: INVANZ INJ 1 GM VIAL 1 GM in NS 100 ML IV + SPIKE MINIBAG* 100 ML IV SCH (09:39)
[2018-09-14] MEDS: LANTUS SC SCH (09:39)
[2018-09-14] MEDS: EFFEXOR XR 75 MG CAP PO SCH (09:39)
[2018-09-14] MEDS: PHENERGAN INJ 25 MG IM PRN (20:56)
[2018-09-14] MEDS: COLACE CAP 100 MG PO SCH (20:58)
[2018-09-14] MEDS: CELEXA PO SCH (20:59)
[2018-09-14] MEDS: SNACK - Diabetic Appropriate PO SCH (20:59)
[2018-09-14] MEDS: MILK OF MAGNESIA PO SCH (21:00)
[2018-09-14] MEDS: NULYTELY or GO-LYTELY PO SCH (21:00)
[2018-09-15] MEDS ORDERED: NS 1/2 1000 ML IV 1,000 ML ONE ×2 (00:07→16:04)
[2018-09-15] MEDS: NS 1/2 1000 ML IV 1,000 ML IV SCH ×2 (00:43→16:09)
[2018-09-15] MEDS: REGLAN INJ 10 MG VIAL IVP SCH ×4 (03:44→20:39)
[2018-09-15] MEDS: MORPHINE SULFATE INJ 2 MG INJ IVP PRN ×4 (04:20→23:12)
[2018-09-15] MEDS: SODIUM BICARBONATE TAB 650MG PO SCH ×3 (06:32→16:11)
[2018-09-15 07:10] LABS: ALANINE AMINOTRANSFERASE 22 Units/L (12-78); ALBUMIN 2.4 g/dL (3.4-5.0); ALKALINE PHOSPHATASE 86 Units/L (46-116); ASPARTATE AMINO TRANSFERASE 18 Units/L (15-37); BLOOD UREA NITROGEN 21 mg/dL (7-18); CHLORIDE 110 mmol/L (98-107); COR CA(FOR HYPOALB) 9.3 mg/dL (8.5-10.1); CREATININE 1.83 mg/dL (0.55-1.02); SODIUM 141 mmol/L (136-145); eGFR NON BLACK RACES 33 (>60)
[2018-09-15 07:17] LABS: BASOPHILS # (AUTO) 0.1 X10^3/uL (0.0-0.1); BASOPHILS % (AUTO) 1.9 % (0.2-1.0); EOSINOPHILS # (AUTO) 0.4 x10^3/uL (0.0-0.2); EOSINOPHILS % (AUTO) 8.3 % (0.9-2.9); HEMATOCRIT 24.1 % (36.0-47.0); HEMOGLOBIN 8.1 g/dL (12.0-16.0); LYMPHOCYTES # (AUTO) 1.3 X10^3/uL (1.3-2.9); LYMPHOCYTES % (AUTO) 28.3 % (21.0-51.0); MEAN CORPUSCULAR HEMOGLOBIN 31.6 pg (27.0-34.0); MEAN CORPUSCULAR HGB CONC 33.5 g/dL (33.0-35.0); MEAN CORPUSCULAR VOLUME 94.1 fL (80.0-100.0); MEAN PLATELET VOLUME 8.9 fL (7.4-11.0); MONOCYTES # (AUTO) 0.3 x10^3/uL (0.3-0.8); NEUTROPHILS # (AUTO) 2.6 x10^3/uL (2.2-4.8); NEUTROPHILS % (AUTO) 54.5 % (42.0-75.0); PLATELET COUNT 231 X10^3/uL (150.0-450.0); RED BLOOD COUNT 2.56 X10^6/uL (3.5-5.4); RED CELL DISTRIBUTION WIDTH 14.6 % (11.6-16.5); WHITE BLOOD COUNT 4.7 X10^3/uL (3.6-10.0)
[2018-09-15] MEDS: ASPIRIN PO SCH (08:49)
[2018-09-15] MEDS: EFFEXOR XR 75 MG CAP PO SCH (08:50)
[2018-09-15] MEDS: LIPITOR TAB 20 MG PO SCH (08:51)
[2018-09-15] MEDS: INVANZ INJ 1 GM VIAL 1 GM in NS 100 ML IV + SPIKE MINIBAG* 100 ML IV SCH (08:51)
[2018-09-15] MEDS: LOPRESSOR TAB 25 MG PO SCH ×2 (08:51→20:39)
[2018-09-15] MEDS: LANTUS SC SCH (08:51)
[2018-09-15] MEDS: PROTONIX INJ 40 MG VIAL IVP SCH ×2 (08:52→20:39)
[2018-09-15] MEDS: MAG-OX TAB PO SCH (08:52)
[2018-09-15] MEDS: PLAVIX PO SCH (08:52)
--- NOTE | 2018-09-15 09:05 | PCM.PROG ---
Progress Note - Progress Note for Day of Date of Exam: 09/13/18 - Subjective Subjective: 38 WF ER ADMISSION WITH HYPONATREMIA, ELEVATED BLOOD SUGAR >700, SUSPECTED DKA, N/V, ACUTE ON CHRONIC RENAL FAILURE. PT SERUM ACETONE NEGATIVE. IMPROVED BLOOD SUGAR WITH INSULIN DRIP, WHICH IS D/C, CURRENTLY ON LANTUS AND SSI. PT IV FLUIDS CHANGES TO 1/2NS AT 75CC/HR. PT HAS ECOLI IN URINE, ON IV INVANZ WITH RENAL DOSE PER PHARMACY. PT HAD NG TUBE PLACEMENT ON SATURDAY DUE TO UNCONTROLLED VOMITING AND COLONIC ILEUS. PT HAD SMALL BM. CLAMPED NG TUBE THIS AFTERNOON AND ADD ICE CHIPS. HGB 8.0, BUN 29. CREAT 1.88. CO2 21 - Past Medical Family Social History Past Med/Fam/Surg Hx: No changes since H&P Allergies: Allergies No Known Drug Allergies Allergy (Verified 09/07/18 20:22) - Review of Systems ROS: No change since H&P - Vital Signs and I&O's Vital Signs: Temperature 97.1 F Pulse Rate [Right] 80 Pulse Rate 67 Respiratory Rate 22 Blood Pressure [Left Arm] 159/78 Blood Pressure [Right Arm] 126/77 Blood Pressure 183/92 O2 Sat by Pulse Oximetry 96 Intake and Output: Intake & Output 09/12/18 09/13/18 09/14/18 09/15/18 11:59 11:59 11:59 11:59 Intake Total 2150 / 2150 2161 / 2161 2270 / 2270 2623 / 2623 Output Total 1700 / 1700 2650 / 2650 100 / 100 1650 / 1650 Balance 450 / 450 -489 / -489 2170 / 2170 973 / 973 - Physical Exam Oriented: Normal Eyes: Blurred Vision (CHRONIC VISION IMPAIRMENT) Ear: Normal Nose: Normal Throat: Normal Respiratory: Diminished Cardiovascular: Normal : Normal Auscultation: Bowel Sounds: Decreased Tenderness: Diffuse (MODERATE DISTENTION) Skin: Decreased Turgur Musculoskeletal: Left, Shoulder, Back:Thoracic, Back:Lumbar, Tender (LLE), Deformity Psychiatric: Anxiety Affect: Anxious Speech Pattern: Clear, Appropriate - Laboratory and Diagnostics Result Diagrams: 09/15/18 06:10 09/15/18 06:10 Labs: 09/07/18 23:52 Blood Blood Culture - Final 09/07/18 23:48 Blood Blood Culture - Final 09/07/18 20:17 Urine,Clean Catch Urine Culture - Final Escherichia Coli Laboratory WBC 4.7 X10^3/uL (3.6-10.0) 09/15/18 06:10 RBC 2.56 X10^6/uL (3.5-5.4) L 09/15/18 06:10 Hgb 8.1 g/dL (12.0-16.0) L 09/15/18 06:10 Hct 24.1 % (36.0-47.0) L 09/15/18 06:10 MCV 94.1 fL (80.0-100.0) 09/15/18 06:10 MCH 31.6 pg (27.0-34.0) 09/15/18 06:10 MCHC 33.5 g/dL (33.0-35.0) 09/15/18 06:10 RDW 14.6 % (11.6-16.5) 09/15/18 06:10 Plt Count 231 X10^3/uL (150.0-450.0) 09/15/18 06:10 Plt Count Comment Adequate (ADEQUATE) 09/09/18 05:34 MPV 8.9 fL (7.4-11.0) 09/15/18 06:10 Neut % (Auto) 54.5 % (42.0-75.0) 09/15/18 06:10 Lymph % (Auto) 28.3 % (21.0-51.0) 09/15/18 06:10 [place] % (Auto) 7.0 % (0.0-13.0) 09/15/18 06:10 Eos % (Auto) 8.3 % (0.9-2.9) H 09/15/18 06:10 Baso % (Auto) 1.9 % (0.2-1.0) H 09/15/18 06:10 Neut # (Auto) 2.6 x10^3/uL (2.2-4.8) 09/15/18 06:10 Lymph # (Auto) 1.3 X10^3/uL (1.3-2.9) 09/15/18 06:10 [place] # (Auto) 0.3 x10^3/uL (0.3-0.8) 09/15/18 06:10 Eos # (Auto) 0.4 x10^3/uL (0.0-0.2) H 09/15/18 06:10 Baso # (Auto) 0.1 X10^3/uL (0.0-0.1) 09/15/18 06:10 Absolute Nucleated RBC 0.0 /100WBC 09/15/18 06:10 Plt Morphology Comment Normal (NORMAL) 09/09/18 05:34 RBC Morphology Abnormal (NORMAL) A 09/09/18 05:34 Hypochromasia Slight A 09/09/18 05:34 Sample Site Rb 09/08/18 11:48 ABG pH 7.370 (7.35-7.45) 09/08/18 11:48 ABG pCO2 39.0 mmHg (35.0-45.0) 09/08/18 11:48 ABG pO2 76.0 mmHg (80.0-100.0) L 09/08/18 11:48 ABG HCO3 22.5 mmol/L (22-26) 09/08/18 11:48 ABG O2 Saturation 95.0 % (90-100) 09/08/18 11:48 ABG Base Excess -2.5 mmol/L (-2.0-2.0) L 09/08/18 11:48 Nathan Test Na 09/08/18 11:48 A-a Gradient 25.0 mmHg 09/08/18 11:48 FiO2 21.0 09/08/18 11:48 Blood Gas Comments Pt [place] well. cdn 09/08/18 11:48 Sodium 141 mmol/L (136-145) 09/15/18 06:10 Corrected Sodium TNP 09/15/18 06:10 Potassium 4.1 mmol/L (3.5-5.1) 09/15/18 06:10 Chloride 110 mmol/L (98-107) H 09/15/18 06:10 Carbon Dioxide 22.0 mmol/L (21-32) 09/15/18 06:10 BUN 21 mg/dL (7-18) H 09/15/18 06:10 Creatinine 1.83 mg/dL (0.55-1.02) H 09/15/18 06:10 Est GFR (MDRD) Af Amer 40 (>60) L 09/15/18 06:10 Est GFR (MDRD) Non-Af 33 (>60) L 09/15/18 06:10 Glucose 77 mg/dL (65-99) 09/15/18 06:10 POC Glucose (mg/dL) 73 mg/dL (65-99) 09/15/18 05:40 Lactic Acid 1.8 mmol/L (0.4-2.0) 09/09/18 16:56 Calcium 8.0 mg/dL (8.5-10.1) L 09/15/18 06:10 Corrected Calcium 9.3 mg/dL (8.5-10.1) 09/15/18 06:10 Magnesium 1.5 mg/dL (1.7-2.9) L 09/10/18 04:57 Iron 63 ug/dL (50-175) 09/10/18 04:57 Transferrin 163 mg/dL (202-364) L 09/10/18 04:57 Ferritin 364 ng/mL (8-252) H 09/10/18 04:57 Total Bilirubin 0.30 mg/dL (0.2-1.0) 09/15/18 06:10 AST 18 Units/L (15-37) 09/15/18 06:10 ALT 22 Units/L (12-78) 09/15/18 06:10 Alkaline Phosphatase 86 Units/L (46-116) 09/15/18 06:10 Creatine Kinase 34 Units/L (26-192) 09/07/18 22:10 CK-MB (CK-2) < 1.0 ng/mL (0-4.0) 09/07/18 22:10 CK/CKMB % Calc 2.9 % (<4) 09/07/18 22:10 Troponin I < 0.02 ng/mL (0-1.5) 09/07/18 22:10 Total Protein 6.0 g/dL (6.4-8.2) L 09/15/18 06:10 Albumin 2.4 g/dL (3.4-5.0) L 09/15/18 06:10 Globulin 3.6 g/dL (2.5-4.5) 09/15/18 06:10 Albumin/Globulin Ratio 0.7 Ratio (1.1-2.1) L 09/15/18 06:10 Amylase 18 Units/L (25-115) L 09/11/18 05:40 Lipase 68 Units/L (73-393) L 09/11/18 05:40 Vitamin B12 526 pg/mL (193-986) 09/10/18 04:57 Folate 4.9 ng/mL (>8.6) L 09/10/18 04:57 Specimen Type Clean catch urine 09/07/18 20:17 Urine Color Yellow (YELLOW) 09/07/18 20:17 Urine Appearance Cloudy (CLEAR) 09/07/18 20:17 Urine pH 6.0 (5.0 - 8.0) 09/07/18 20:17 Ur Specific [place] 1.005 (1.000-1.030) 09/07/18 20:17 Urine Protein 3+ (NEGATIVE) 09/07/18 20:17 Urine Glucose (UA) 4+ (NEGATIVE) 09/07/18 20:17 Urine Ketones Negative (NEGATIVE) 09/07/18 20:17 Urine Occult Blood 3+ (NEGATIVE) 09/07/18 20:17 Urine Nitrite Negative (NEGATIVE) 09/07/18 20:17 Urine Bilirubin Negative (NEGATIVE) 09/07/18 20:17 Urine Acetone Negative (NEGATIVE) 09/08/18 00:01 Urine Urobilinogen Normal (NORMAL) 09/07/18 20:17 Ur Leukocyte Esterase 2+ (NEGATIVE) 09/07/18 20:17 Urine RBC 3-5 /HPF (NONE SEEN) 09/07/18 20:17 Urine WBC Tntc /HPF (NONE SEEN) 09/07/18 20:17 Ur Squamous Epith Cells Moderate /HPF (NEGATIVE) 09/07/18 20:17 Amorphous Sediment Trace /HPF (NEGATIVE) 09/07/18 20:17 Urine Bacteria Trace /HPF (NEGATIVE) 09/07/18 20:17 Ur Culture Indicated? Yes/culture set up 09/07/18 20:17 Stool Description 30g,brown,liquid 09/15/18 00:59 Stl Occult Blood (IFOB) Negative (NEGATIVE) 09/15/18 00:59 Acetone, Semi-Quant Negative (NEGATIVE) 09/10/18 04:57 - Plan (1) UTI (urinary tract infection) Status: Acute Qualifiers: Urinary tract infection type: site unspecified Hematuria presence: with hematuria Qualified Code(s): N39.0 - Urinary tract infection, site not specified; R31.9 - Hematuria, unspecified Plan: IV HYDRATION, IV ATBX. UC COLLECTED ON ADMISSION, +ECOLI ON IV INVANZ. BLOOD SUGAR CONTROL. BP MONITORING. NAUSEA AND PAIN CONTROL. REPEAT AM LABS, SERUM ACETONES NEGATIVE. OCCULT STOOL PENDING (2) Hyperglycemia Status: Acute (3) CKD (chronic kidney disease) stage 4, GFR 15-29 ml/min Status: Chronic (4) Gastroparesis Status: Chronic (5) CAD (coronary artery disease) Status: Chronic (6) GERD (gastroesophageal reflux disease) Status: Chronic (7) Arthritis Status: Chronic (8) Metabolic acidosis Status: Acute (9) Ileus Status: Acute Plan: WITH N/V. NG TUBE AT LIS
[2018-09-15] MEDS: TOPAMAX PO SCH (09:15)
--- NOTE | 2018-09-15 09:15 | PCM.PROG ---
Progress Note - Progress Note for Day of Date of Exam: 09/14/18 - Subjective Subjective: 38 WF ER ADMISSION WITH HYPONATREMIA, ELEVATED BLOOD SUGAR >700, SUSPECTED DKA, N/V, ACUTE ON CHRONIC RENAL FAILURE. PT SERUM ACETONE NEGATIVE. IMPROVED BLOOD SUGAR WITH INSULIN DRIP, WHICH IS D/C, CURRENTLY ON LANTUS AND SSI. PT IV FLUIDS CHANGES TO 1/2NS AT 75CC/HR. PT HAS ECOLI IN URINE, ON IV INVANZ WITH RENAL DOSE PER PHARMACY. PT HAD NG TUBE PLACEMENT ON SATURDAY DUE TO UNCONTROLLED VOMITING AND COLONIC ILEUS. REPEAT KUB WITH CONTNUED ILEUS. ADDED ZITHROMAX 500MG IV X 1 DOSE TO INCREASE PERISTALSIS. GOLYTELY PER NG TUBE, REPEAT AM KUB. HGB 8.3, CO2 20.3, BUN 26, CREAT 1.86 - Past Medical Family Social History Past Med/Fam/Surg Hx: No changes since H&P Allergies: Allergies No Known Drug Allergies Allergy (Verified 09/07/18 20:22) - Review of Systems ROS: No change since H&P - Vital Signs and I&O's Vital Signs: Temperature 97.1 F Pulse Rate [Right] 80 Pulse Rate 67 Respiratory Rate 22 Blood Pressure [Left Arm] 159/78 Blood Pressure [Right Arm] 126/77 Blood Pressure 183/92 O2 Sat by Pulse Oximetry 96 Intake and Output: Intake & Output 09/12/18 09/13/18 09/14/18 09/15/18 11:59 11:59 11:59 11:59 Intake Total 2150 / 2150 2161 / 2161 2270 / 2270 2623 / 2623 Output Total 1700 / 1700 2650 / 2650 100 / 100 1650 / 1650 Balance 450 / 450 -489 / -489 2170 / 2170 973 / 973 - Physical Exam Oriented: Normal Eyes: Blurred Vision (CHRONIC VISION IMPAIRMENT) Ear: Normal Nose: Normal Throat: Normal Respiratory: Diminished Cardiovascular: Normal : Normal Auscultation: Bowel Sounds: Decreased Tenderness: Diffuse (MODERATE DISTENTION) Skin: Decreased Turgur Musculoskeletal: Left, Shoulder, Back:Thoracic, Back:Lumbar, Tender (LLE), Deformity Psychiatric: Anxiety Affect: Anxious Speech Pattern: Clear, Appropriate - Laboratory and Diagnostics Result Diagrams: 09/15/18 06:10 09/15/18 06:10 Labs: 09/07/18 23:52 Blood Blood Culture - Final 09/07/18 23:48 Blood Blood Culture - Final 09/07/18 20:17 Urine,Clean Catch Urine Culture - Final Escherichia Coli Laboratory WBC 4.7 X10^3/uL (3.6-10.0) 09/15/18 06:10 RBC 2.56 X10^6/uL (3.5-5.4) L 09/15/18 06:10 Hgb 8.1 g/dL (12.0-16.0) L 09/15/18 06:10 Hct 24.1 % (36.0-47.0) L 09/15/18 06:10 MCV 94.1 fL (80.0-100.0) 09/15/18 06:10 MCH 31.6 pg (27.0-34.0) 09/15/18 06:10 MCHC 33.5 g/dL (33.0-35.0) 09/15/18 06:10 RDW 14.6 % (11.6-16.5) 09/15/18 06:10 Plt Count 231 X10^3/uL (150.0-450.0) 09/15/18 06:10 Plt Count Comment Adequate (ADEQUATE) 09/09/18 05:34 MPV 8.9 fL (7.4-11.0) 09/15/18 06:10 Neut % (Auto) 54.5 % (42.0-75.0) 09/15/18 06:10 Lymph % (Auto) 28.3 % (21.0-51.0) 09/15/18 06:10 [place] % (Auto) 7.0 % (0.0-13.0) 09/15/18 06:10 Eos % (Auto) 8.3 % (0.9-2.9) H 09/15/18 06:10 Baso % (Auto) 1.9 % (0.2-1.0) H 09/15/18 06:10 Neut # (Auto) 2.6 x10^3/uL (2.2-4.8) 09/15/18 06:10 Lymph # (Auto) 1.3 X10^3/uL (1.3-2.9) 09/15/18 06:10 [place] # (Auto) 0.3 x10^3/uL (0.3-0.8) 09/15/18 06:10 Eos # (Auto) 0.4 x10^3/uL (0.0-0.2) H 09/15/18 06:10 Baso # (Auto) 0.1 X10^3/uL (0.0-0.1) 09/15/18 06:10 Absolute Nucleated RBC 0.0 /100WBC 09/15/18 06:10 Plt Morphology Comment Normal (NORMAL) 09/09/18 05:34 RBC Morphology Abnormal (NORMAL) A 09/09/18 05:34 Hypochromasia Slight A 09/09/18 05:34 Sample Site Rb 09/08/18 11:48 ABG pH 7.370 (7.35-7.45) 09/08/18 11:48 ABG pCO2 39.0 mmHg (35.0-45.0) 09/08/18 11:48 ABG pO2 76.0 mmHg (80.0-100.0) L 09/08/18 11:48 ABG HCO3 22.5 mmol/L (22-26) 09/08/18 11:48 ABG O2 Saturation 95.0 % (90-100) 09/08/18 11:48 ABG Base Excess -2.5 mmol/L (-2.0-2.0) L 09/08/18 11:48 Nathan Test Na 09/08/18 11:48 A-a Gradient 25.0 mmHg 09/08/18 11:48 FiO2 21.0 09/08/18 11:48 Blood Gas Comments Pt [place] well. cdn 09/08/18 11:48 Sodium 141 mmol/L (136-145) 09/15/18 06:10 Corrected Sodium TNP 09/15/18 06:10 Potassium 4.1 mmol/L (3.5-5.1) 09/15/18 06:10 Chloride 110 mmol/L (98-107) H 09/15/18 06:10 Carbon Dioxide 22.0 mmol/L (21-32) 09/15/18 06:10 BUN 21 mg/dL (7-18) H 09/15/18 06:10 Creatinine 1.83 mg/dL (0.55-1.02) H 09/15/18 06:10 Est GFR (MDRD) Af Amer 40 (>60) L 09/15/18 06:10 Est GFR (MDRD) Non-Af 33 (>60) L 09/15/18 06:10 Glucose 77 mg/dL (65-99) 09/15/18 06:10 POC Glucose (mg/dL) 73 mg/dL (65-99) 09/15/18 05:40 Lactic Acid 1.8 mmol/L (0.4-2.0) 09/09/18 16:56 Calcium 8.0 mg/dL (8.5-10.1) L 09/15/18 06:10 Corrected Calcium 9.3 mg/dL (8.5-10.1) 09/15/18 06:10 Magnesium 1.5 mg/dL (1.7-2.9) L 09/10/18 04:57 Iron 63 ug/dL (50-175) 09/10/18 04:57 Transferrin 163 mg/dL (202-364) L 09/10/18 04:57 Ferritin 364 ng/mL (8-252) H 09/10/18 04:57 Total Bilirubin 0.30 mg/dL (0.2-1.0) 09/15/18 06:10 AST 18 Units/L (15-37) 09/15/18 06:10 ALT 22 Units/L (12-78) 09/15/18 06:10 Alkaline Phosphatase 86 Units/L (46-116) 09/15/18 06:10 Creatine Kinase 34 Units/L (26-192) 09/07/18 22:10 CK-MB (CK-2) < 1.0 ng/mL (0-4.0) 09/07/18 22:10 CK/CKMB % Calc 2.9 % (<4) 09/07/18 22:10 Troponin I < 0.02 ng/mL (0-1.5) 09/07/18 22:10 Total Protein 6.0 g/dL (6.4-8.2) L 09/15/18 06:10 Albumin 2.4 g/dL (3.4-5.0) L 09/15/18 06:10 Globulin 3.6 g/dL (2.5-4.5) 09/15/18 06:10 Albumin/Globulin Ratio 0.7 Ratio (1.1-2.1) L 09/15/18 06:10 Amylase 18 Units/L (25-115) L 09/11/18 05:40 Lipase 68 Units/L (73-393) L 09/11/18 05:40 Vitamin B12 526 pg/mL (193-986) 09/10/18 04:57 Folate 4.9 ng/mL (>8.6) L 09/10/18 04:57 Specimen Type Clean catch urine 09/07/18 20:17 Urine Color Yellow (YELLOW) 09/07/18 20:17 Urine Appearance Cloudy (CLEAR) 09/07/18 20:17 Urine pH 6.0 (5.0 - 8.0) 09/07/18 20:17 Ur Specific [place] 1.005 (1.000-1.030) 09/07/18 20:17 Urine Protein 3+ (NEGATIVE) 09/07/18 20:17 Urine Glucose (UA) 4+ (NEGATIVE) 09/07/18 20:17 Urine Ketones Negative (NEGATIVE) 09/07/18 20:17 Urine Occult Blood 3+ (NEGATIVE) 09/07/18 20:17 Urine Nitrite Negative (NEGATIVE) 09/07/18 20:17 Urine Bilirubin Negative (NEGATIVE) 09/07/18 20:17 Urine Acetone Negative (NEGATIVE) 09/08/18 00:01 Urine Urobilinogen Normal (NORMAL) 09/07/18 20:17 Ur Leukocyte Esterase 2+ (NEGATIVE) 09/07/18 20:17 Urine RBC 3-5 /HPF (NONE SEEN) 09/07/18 20:17 Urine WBC Tntc /HPF (NONE SEEN) 09/07/18 20:17 Ur Squamous Epith Cells Moderate /HPF (NEGATIVE) 09/07/18 20:17 Amorphous Sediment Trace /HPF (NEGATIVE) 09/07/18 20:17 Urine Bacteria Trace /HPF (NEGATIVE) 09/07/18 20:17 Ur Culture Indicated? Yes/culture set up 09/07/18 20:17 Stool Description 30g,brown,liquid 09/15/18 00:59 Stl Occult Blood (IFOB) Negative (NEGATIVE) 09/15/18 00:59 Acetone, Semi-Quant Negative (NEGATIVE) 09/10/18 04:57 - Plan (1) UTI (urinary tract infection) Status: Acute Qualifiers: Urinary tract infection type: site unspecified Hematuria presence: with hematuria Qualified Code(s): N39.0 - Urinary tract infection, site not specified; R31.9 - Hematuria, unspecified Plan: IV HYDRATION, IV ATBX. UC COLLECTED ON ADMISSION, +ECOLI ON IV INVANZ. BLOOD SUGAR CONTROL. BP MONITORING. NAUSEA AND PAIN CONTROL. REPEAT AM LABS, SERUM ACETONES NEGATIVE. OCCULT STOOL PENDING (2) Hyperglycemia Status: Acute (3) CKD (chronic kidney disease) stage 4, GFR 15-29 ml/min Status: Chronic (4) Gastroparesis Status: Chronic (5) CAD (coronary artery disease) Status: Chronic (6) GERD (gastroesophageal reflux disease) Status: Chronic (7) Arthritis Status: Chronic (8) Metabolic acidosis Status: Acute (9) Ileus Status: Acute Plan: WITH N/V. NG TUBE AT LIS
--- NOTE | 2018-09-15 09:46 | RAD ---
HISTORY: 38-year-old female with abdominal pain and history of ileus. Study: Single view the abdomen. Comparison: Abdominal radiographs 09/13/2018. Findings: Tear tube with distal tip overlying the left upper quadrant region of the stomach. Right upper quadrant surgical clips. Surgical clips overlie the bilateral pelvis. Evaluation of the abdomen demonstrates a multiple gas-filled loops of colon with small volume stool without small bowel distention. No radiographic evidence of free intraperitoneal air per No pathological soft tissue mass or calcification can be observed. The bony structures are grossly intact. IMPRESSION: 1. Nonobstructive bowel gas pattern. 2. Enteric tube in apparent good position. Reported By:
[2018-09-15] MEDS: GLUTOSE 15 GEL ORAL PO ONE ×2 (16:00→16:09)
[2018-09-15] MEDS ORDERED: NS 1/2 1000 ML IV 0 ML ONE (16:04)
[2018-09-15] MEDS: NULYTELY or GO-LYTELY PO SCH (16:10)
--- NOTE | 2018-09-15 17:59 | PCM.PROG ---
Progress Note - Progress Note for Day of Date of Exam: 09/15/18 - Subjective Subjective: 38 WF ER ADMISSION WITH HYPONATREMIA, ELEVATED BLOOD SUGAR >700, SUSPECTED DKA, N/V, ACUTE ON CHRONIC RENAL FAILURE. PT SERUM ACETONE NEGATIVE. IMPROVED BLOOD SUGAR WITH INSULIN DRIP, WHICH IS D/C, CURRENTLY ON LANTUS AND SSI. PT IV FLUIDS CHANGES TO 1/2NS AT 75CC/HR. PT HAS ECOLI IN URINE, ON IV INVANZ WITH RENAL DOSE PER PHARMACY. PT HAD NG TUBE PLACEMENT ON SATURDAY DUE TO UNCONTROLLED VOMITING AND COLONIC ILEUS. PT REPORTS TOLERATING JUICE WITHOUT NAUSEA. PT REPORTS BM DURING THE NIGHT. BUN 21, CREAT 1.83 - Past Medical Family Social History Past Med/Fam/Surg Hx: No changes since H&P Allergies: Allergies No Known Drug Allergies Allergy (Verified 09/07/18 20:22) - Review of Systems ROS: No change since H&P - Vital Signs and I&O's Vital Signs: Temperature 97.6 F Pulse Rate [Right] 80 Pulse Rate 70 Respiratory Rate 17 Blood Pressure [Left Arm] 159/78 Blood Pressure [Right Arm] 126/77 Blood Pressure 163/71 O2 Sat by Pulse Oximetry 98 Intake and Output: Intake & Output 09/13/18 09/14/18 09/15/18 09/16/18 11:59 11:59 11:59 11:59 Intake Total 2161 / 2161 2270 / 2270 2623 / 2623 695 / 695 Output Total 2650 / 2650 100 / 100 1650 / 1650 1100 / 1100 Balance -489 / -489 2170 / 2170 973 / 973 -405 / -405 - Physical Exam Oriented: Normal Eyes: Blurred Vision (CHRONIC VISION IMPAIRMENT) Ear: Normal Nose: Normal Throat: Normal Respiratory: Diminished Cardiovascular: Normal : Normal Auscultation: Bowel Sounds: Decreased Tenderness: Diffuse (MODERATE DISTENTION) Skin: Decreased Turgur Musculoskeletal: Left, Shoulder, Back:Thoracic, Back:Lumbar, Tender (LLE), Deformity Psychiatric: Anxiety Affect: Anxious Speech Pattern: Clear, Appropriate - Laboratory and Diagnostics Result Diagrams: 09/15/18 06:10 09/15/18 06:10 Labs: 09/07/18 23:52 Blood Blood Culture - Final 09/07/18 23:48 Blood Blood Culture - Final 09/07/18 20:17 Urine,Clean Catch Urine Culture - Final Escherichia Coli Laboratory WBC 4.7 X10^3/uL (3.6-10.0) 09/15/18 06:10 RBC 2.56 X10^6/uL (3.5-5.4) L 09/15/18 06:10 Hgb 8.1 g/dL (12.0-16.0) L 09/15/18 06:10 Hct 24.1 % (36.0-47.0) L 09/15/18 06:10 MCV 94.1 fL (80.0-100.0) 09/15/18 06:10 MCH 31.6 pg (27.0-34.0) 09/15/18 06:10 MCHC 33.5 g/dL (33.0-35.0) 09/15/18 06:10 RDW 14.6 % (11.6-16.5) 09/15/18 06:10 Plt Count 231 X10^3/uL (150.0-450.0) 09/15/18 06:10 Plt Count Comment Adequate (ADEQUATE) 09/09/18 05:34 MPV 8.9 fL (7.4-11.0) 09/15/18 06:10 Neut % (Auto) 54.5 % (42.0-75.0) 09/15/18 06:10 Lymph % (Auto) 28.3 % (21.0-51.0) 09/15/18 06:10 [place] % (Auto) 7.0 % (0.0-13.0) 09/15/18 06:10 Eos % (Auto) 8.3 % (0.9-2.9) H 09/15/18 06:10 Baso % (Auto) 1.9 % (0.2-1.0) H 09/15/18 06:10 Neut # (Auto) 2.6 x10^3/uL (2.2-4.8) 09/15/18 06:10 Lymph # (Auto) 1.3 X10^3/uL (1.3-2.9) 09/15/18 06:10 [place] # (Auto) 0.3 x10^3/uL (0.3-0.8) 09/15/18 06:10 Eos # (Auto) 0.4 x10^3/uL (0.0-0.2) H 09/15/18 06:10 Baso # (Auto) 0.1 X10^3/uL (0.0-0.1) 09/15/18 06:10 Absolute Nucleated RBC 0.0 /100WBC 09/15/18 06:10 Plt Morphology Comment Normal (NORMAL) 09/09/18 05:34 RBC Morphology Abnormal (NORMAL) A 09/09/18 05:34 Hypochromasia Slight A 09/09/18 05:34 Sample Site Rb 09/08/18 11:48 ABG pH 7.370 (7.35-7.45) 09/08/18 11:48 ABG pCO2 39.0 mmHg (35.0-45.0) 09/08/18 11:48 ABG pO2 76.0 mmHg (80.0-100.0) L 09/08/18 11:48 ABG HCO3 22.5 mmol/L (22-26) 09/08/18 11:48 ABG O2 Saturation 95.0 % (90-100) 09/08/18 11:48 ABG Base Excess -2.5 mmol/L (-2.0-2.0) L 09/08/18 11:48 Nathan Test Na 09/08/18 11:48 A-a Gradient 25.0 mmHg 09/08/18 11:48 FiO2 21.0 09/08/18 11:48 Blood Gas Comments Pt [place] well. cdn 09/08/18 11:48 Sodium 141 mmol/L (136-145) 09/15/18 06:10 Corrected Sodium TNP 09/15/18 06:10 Potassium 4.1 mmol/L (3.5-5.1) 09/15/18 06:10 Chloride 110 mmol/L (98-107) H 09/15/18 06:10 Carbon Dioxide 22.0 mmol/L (21-32) 09/15/18 06:10 BUN 21 mg/dL (7-18) H 09/15/18 06:10 Creatinine 1.83 mg/dL (0.55-1.02) H 09/15/18 06:10 Est GFR (MDRD) Af Amer 40 (>60) L 09/15/18 06:10 Est GFR (MDRD) Non-Af 33 (>60) L 09/15/18 06:10 Glucose 77 mg/dL (65-99) 09/15/18 06:10 POC Glucose (mg/dL) 130 mg/dL (65-99) H 09/15/18 17:05 Lactic Acid 1.8 mmol/L (0.4-2.0) 09/09/18 16:56 Calcium 8.0 mg/dL (8.5-10.1) L 09/15/18 06:10 Corrected Calcium 9.3 mg/dL (8.5-10.1) 09/15/18 06:10 Magnesium 1.5 mg/dL (1.7-2.9) L 09/10/18 04:57 Iron 63 ug/dL (50-175) 09/10/18 04:57 Transferrin 163 mg/dL (202-364) L 09/10/18 04:57 Ferritin 364 ng/mL (8-252) H 09/10/18 04:57 Total Bilirubin 0.30 mg/dL (0.2-1.0) 09/15/18 06:10 AST 18 Units/L (15-37) 09/15/18 06:10 ALT 22 Units/L (12-78) 09/15/18 06:10 Alkaline Phosphatase 86 Units/L (46-116) 09/15/18 06:10 Creatine Kinase 34 Units/L (26-192) 09/07/18 22:10 CK-MB (CK-2) < 1.0 ng/mL (0-4.0) 09/07/18 22:10 CK/CKMB % Calc 2.9 % (<4) 09/07/18 22:10 Troponin I < 0.02 ng/mL (0-1.5) 09/07/18 22:10 Total Protein 6.0 g/dL (6.4-8.2) L 09/15/18 06:10 Albumin 2.4 g/dL (3.4-5.0) L 09/15/18 06:10 Globulin 3.6 g/dL (2.5-4.5) 09/15/18 06:10 Albumin/Globulin Ratio 0.7 Ratio (1.1-2.1) L 09/15/18 06:10 Amylase 18 Units/L (25-115) L 09/11/18 05:40 Lipase 68 Units/L (73-393) L 09/11/18 05:40 Vitamin B12 526 pg/mL (193-986) 09/10/18 04:57 Folate 4.9 ng/mL (>8.6) L 09/10/18 04:57 Specimen Type Clean catch urine 09/07/18 20:17 Urine Color Yellow (YELLOW) 09/07/18 20:17 Urine Appearance Cloudy (CLEAR) 09/07/18 20:17 Urine pH 6.0 (5.0 - 8.0) 09/07/18 20:17 Ur Specific [place] 1.005 (1.000-1.030) 09/07/18 20:17 Urine Protein 3+ (NEGATIVE) 09/07/18 20:17 Urine Glucose (UA) 4+ (NEGATIVE) 09/07/18 20:17 Urine Ketones Negative (NEGATIVE) 09/07/18 20:17 Urine Occult Blood 3+ (NEGATIVE) 09/07/18 20:17 Urine Nitrite Negative (NEGATIVE) 09/07/18 20:17 Urine Bilirubin Negative (NEGATIVE) 09/07/18 20:17 Urine Acetone Negative (NEGATIVE) 09/08/18 00:01 Urine Urobilinogen Normal (NORMAL) 09/07/18 20:17 Ur Leukocyte Esterase 2+ (NEGATIVE) 09/07/18 20:17 Urine RBC 3-5 /HPF (NONE SEEN) 09/07/18 20:17 Urine WBC Tntc /HPF (NONE SEEN) 09/07/18 20:17 Ur Squamous Epith Cells Moderate /HPF (NEGATIVE) 09/07/18 20:17 Amorphous Sediment Trace /HPF (NEGATIVE) 09/07/18 20:17 Urine Bacteria Trace /HPF (NEGATIVE) 09/07/18 20:17 Ur Culture Indicated? Yes/culture set up 09/07/18 20:17 Stool Description 30g,brown,liquid 09/15/18 00:59 Stl Occult Blood (IFOB) Negative (NEGATIVE) 09/15/18 00:59 Acetone, Semi-Quant Negative (NEGATIVE) 09/10/18 04:57 - Plan (1) Ileus Status: Acute Plan: WITH N/V. NG TUBE AT LIS, KUB (2) UTI (urinary tract infection) Status: Acute Qualifiers: Urinary tract infection type: site unspecified Hematuria presence: with hematuria Qualified Code(s): N39.0 - Urinary tract infection, site not specified; R31.9 - Hematuria, unspecified Plan: IV HYDRATION, IV ATBX. UC COLLECTED ON ADMISSION, +ECOLI ON IV INVANZ. BLOOD SUGAR CONTROL. BP MONITORING. NAUSEA AND PAIN CONTROL. REPEAT AM LABS, SERUM ACETONES NEGATIVE. (3) Hyperglycemia Status: Acute (4) CKD (chronic kidney disease) stage 4, GFR 15-29 ml/min Status: Chronic (5) Gastroparesis Status: Chronic (6) CAD (coronary artery disease) Status: Chronic (7) GERD (gastroesophageal reflux disease) Status: Chronic (8) Arthritis Status: Chronic (9) Metabolic acidosis Status: Acute
[2018-09-15] MEDS: CELEXA PO SCH (20:39)
[2018-09-15] MEDS: NORCO 10/325 TAB PO PRN (20:39)
[2018-09-15] MEDS: SNACK - Diabetic Appropriate PO SCH (21:22)
[2018-09-15] MEDS: MILK OF MAGNESIA PO SCH (21:22)
[2018-09-15] MEDS: COLACE CAP 100 MG PO SCH (21:22)
[2018-09-16] MEDS: NS 1/2 1000 ML IV 1,000 ML IV SCH ×3 (02:27→19:21)
[2018-09-16] MEDS: REGLAN INJ 10 MG VIAL IVP SCH ×4 (03:42→20:16)
[2018-09-16] MEDS ORDERED: NS 1/2 1000 ML IV 1,000 ML ONE (03:45)
[2018-09-16] MEDS: MORPHINE SULFATE INJ 2 MG INJ IVP PRN ×3 (06:17→20:00)
[2018-09-16] MEDS: SODIUM BICARBONATE TAB 650MG PO SCH ×3 (06:20→18:54)
[2018-09-16 06:45] LABS: ALANINE AMINOTRANSFERASE 22 Units/L (12-78); ALBUMIN 2.4 g/dL (3.4-5.0); ALKALINE PHOSPHATASE 82 Units/L (46-116); ASPARTATE AMINO TRANSFERASE 19 Units/L (15-37); BLOOD UREA NITROGEN 17 mg/dL (7-18); CARBON DIOXIDE 22.9 mmol/L (21-32); CHLORIDE 109 mmol/L (98-107); COR CA(FOR HYPOALB) 9.3 mg/dL (8.5-10.1); CREATININE 1.77 mg/dL (0.55-1.02); SODIUM 140 mmol/L (136-145); TOTAL PROTEIN 5.9 g/dL (6.4-8.2); eGFR NON BLACK RACES 34 (>60)
[2018-09-16 07:02] LABS: BASOPHILS # (AUTO) 0.1 X10^3/uL (0.0-0.1); BASOPHILS % (AUTO) 2.3 % (0.2-1.0); EOSINOPHILS # (AUTO) 0.5 x10^3/uL (0.0-0.2); EOSINOPHILS % (AUTO) 9.6 % (0.9-2.9); HEMATOCRIT 24.3 % (36.0-47.0); HEMOGLOBIN 8.2 g/dL (12.0-16.0); LYMPHOCYTES # (AUTO) 1.5 X10^3/uL (1.3-2.9); LYMPHOCYTES % (AUTO) 31.3 % (21.0-51.0); MEAN CORPUSCULAR HEMOGLOBIN 31.5 pg (27.0-34.0); MEAN CORPUSCULAR HGB CONC 33.7 g/dL (33.0-35.0); MEAN CORPUSCULAR VOLUME 93.5 fL (80.0-100.0); MEAN PLATELET VOLUME 8.9 fL (7.4-11.0); MONOCYTES # (AUTO) 0.4 x10^3/uL (0.3-0.8); MONOCYTES % (AUTO) 8.8 % (0.0-13.0); NEUTROPHILS # (AUTO) 2.3 x10^3/uL (2.2-4.8); PLATELET COUNT 237 X10^3/uL (150.0-450.0); RED CELL DISTRIBUTION WIDTH 14.5 % (11.6-16.5); WHITE BLOOD COUNT 4.7 X10^3/uL (3.6-10.0)
[2018-09-16] MEDS: PROTONIX INJ 40 MG VIAL IVP SCH ×2 (09:49→20:16)
[2018-09-16] MEDS: ZOFRAN INJ 4 MG VIAL IVP PRN (09:49)
[2018-09-16] MEDS: INVANZ INJ 1 GM VIAL 1 GM in NS 100 ML IV + SPIKE MINIBAG* 100 ML IV SCH (14:00)
[2018-09-16] MEDS: MAG-OX TAB PO SCH (14:00)
[2018-09-16] MEDS: LIPITOR TAB 20 MG PO SCH (14:00)
[2018-09-16] MEDS: PLAVIX PO SCH (14:00)
[2018-09-16] MEDS: ASPIRIN PO SCH (14:00)
[2018-09-16] MEDS: LOPRESSOR TAB 25 MG PO SCH ×2 (14:00→20:16)
[2018-09-16] MEDS: EFFEXOR XR 75 MG CAP PO SCH (14:00)
[2018-09-16] MEDS: TOPAMAX PO SCH (14:00)
[2018-09-16] MEDS ORDERED: NS 50 ML IV 50 ML ONE (14:20)
[2018-09-16] MEDS: CELEXA PO SCH (20:15)
[2018-09-16] MEDS: COLACE CAP 100 MG PO SCH (20:15)
[2018-09-16] MEDS: SNACK - Diabetic Appropriate PO SCH (20:15)
[2018-09-16] MEDS: MILK OF MAGNESIA PO SCH (20:16)
[2018-09-16] MEDS: NORCO 10/325 TAB PO PRN (23:29)
[2018-09-17] MEDS ORDERED: NS 1/2 1000 ML IV 1,000 ML ONE (01:39)
[2018-09-17] MEDS: REGLAN INJ 10 MG VIAL IVP SCH ×4 (02:07→21:02)
[2018-09-17] MEDS: NS 1/2 1000 ML IV 1,000 ML IV SCH ×2 (02:08→20:58)
[2018-09-17] MEDS: MORPHINE SULFATE INJ 2 MG INJ IVP PRN ×3 (03:27→19:43)
[2018-09-17 05:28] LABS: BASOPHILS # (AUTO) 0.2 X10^3/uL (0.0-0.1); BASOPHILS % (AUTO) 3.3 % (0.2-1.0); EOSINOPHILS # (AUTO) 0.4 x10^3/uL (0.0-0.2); EOSINOPHILS % (AUTO) 8.5 % (0.9-2.9); HEMATOCRIT 24.9 % (36.0-47.0); HEMOGLOBIN 8.3 g/dL (12.0-16.0); LYMPHOCYTES # (AUTO) 1.4 X10^3/uL (1.3-2.9); LYMPHOCYTES % (AUTO) 30.2 % (21.0-51.0); MEAN CORPUSCULAR HGB CONC 33.2 g/dL (33.0-35.0); MEAN CORPUSCULAR VOLUME 93.5 fL (80.0-100.0); MEAN PLATELET VOLUME 8.9 fL (7.4-11.0); MONOCYTES # (AUTO) 0.4 x10^3/uL (0.3-0.8); MONOCYTES % (AUTO) 7.6 % (0.0-13.0); NEUTROPHILS # (AUTO) 2.4 x10^3/uL (2.2-4.8); NEUTROPHILS % (AUTO) 50.4 % (42.0-75.0); PLATELET COUNT 235 X10^3/uL (150.0-450.0); RED BLOOD COUNT 2.67 X10^6/uL (3.5-5.4); RED CELL DISTRIBUTION WIDTH 14.3 % (11.6-16.5); WHITE BLOOD COUNT 4.7 X10^3/uL (3.6-10.0)
[2018-09-17 05:47] LABS: ALANINE AMINOTRANSFERASE 21 Units/L (12-78); ALBUMIN 2.5 g/dL (3.4-5.0); ALKALINE PHOSPHATASE 80 Units/L (46-116); ASPARTATE AMINO TRANSFERASE 17 Units/L (15-37); BLOOD UREA NITROGEN 16 mg/dL (7-18); CALCIUM 8.3 mg/dL (8.5-10.1); CARBON DIOXIDE 21.8 mmol/L (21-32); CHLORIDE 110 mmol/L (98-107); COR CA(FOR HYPOALB) 9.5 mg/dL (8.5-10.1); CREATININE 1.74 mg/dL (0.55-1.02); SODIUM 141 mmol/L (136-145); eGFR NON BLACK RACES 35 (>60)
[2018-09-17] MEDS: ASPIRIN PO SCH (09:25)
[2018-09-17] MEDS: TOPAMAX PO SCH (09:25)
[2018-09-17] MEDS: LIPITOR TAB 20 MG PO SCH (09:25)
[2018-09-17] MEDS: INVANZ INJ 1 GM VIAL 1 GM in NS 100 ML IV + SPIKE MINIBAG* 100 ML IV SCH (09:25)
[2018-09-17] MEDS: PROTONIX INJ 40 MG VIAL IVP SCH ×2 (09:25→21:02)
[2018-09-17] MEDS: EFFEXOR XR 75 MG CAP PO SCH (09:26)
[2018-09-17] MEDS: PLAVIX PO SCH (09:26)
[2018-09-17] MEDS: LOPRESSOR TAB 25 MG PO SCH ×2 (09:26→21:01)
[2018-09-17] MEDS: MAG-OX TAB PO SCH (09:26)
[2018-09-17] MEDS: SODIUM BICARBONATE TAB 650MG PO SCH ×3 (09:31→17:30)
[2018-09-17] MEDS: NORCO 10/325 TAB PO PRN (11:45)
--- NOTE | 2018-09-17 18:41 | PCM.PROG ---
Progress Note - Progress Note for Day of Date of Exam: 09/17/18 - Subjective Subjective: 38 WF ER ADMISSION WITH HYPONATREMIA, ELEVATED BLOOD SUGAR >700, SUSPECTED DKA, N/V, ACUTE ON CHRONIC RENAL FAILURE. PT SERUM ACETONE NEGATIVE. IMPROVED BLOOD SUGAR WITH INSULIN DRIP, WHICH IS D/C, CURRENTLY ON LANTUS AND SSI. PT IV FLUIDS CHANGES TO 1/2NS AT KVO. PT HAS ECOLI IN URINE, ON IV INVANZ WITH RENAL DOSE PER PHARMACY. PT HAD NG TUBE PLACEMENT ON SATURDAY DUE TO UNCONTROLLED VOMITING AND COLONIC ILEUS. PT REPORTS TOLERATING JUICE WITHOUT NAUSEA. NG TUBE REMOVED WITH PT TOLERATED CLEAR LIQUIDS WITHOUT N/V. PLAN TO ADVANCE DIET TOLERATED, PT. IMPROVING CREAT 1.74 - Past Medical Family Social History Past Med/Fam/Surg Hx: No changes since H&P Allergies: Allergies No Known Drug Allergies Allergy (Verified 09/07/18 20:22) - Review of Systems ROS: No change since H&P - Vital Signs and I&O's Vital Signs: Temperature 97.6 F Pulse Rate [Right] 80 Pulse Rate 67 Respiratory Rate 11 Blood Pressure [Left Arm] 159/78 Blood Pressure [Right Arm] 126/77 Blood Pressure 172/79 O2 Sat by Pulse Oximetry 98 Intake and Output: Intake & Output 09/15/18 09/16/18 09/17/18 09/18/18 11:59 11:59 11:59 11:59 Intake Total 2623 / 2623 2726 / 2726 896 / 896 600 / 600 Output Total 1725 / 1725 2850 / 2850 800 / 800 800 / 800 Balance 898 / 898 -124 / -124 96 / 96 -200 / -200 - Physical Exam Oriented: Normal Eyes: Blurred Vision (CHRONIC VISION IMPAIRMENT) Ear: Normal Nose: Normal Throat: Normal Respiratory: Diminished Cardiovascular: Normal : Normal Auscultation: Bowel Sounds: Decreased Tenderness: Diffuse (MODERATE DISTENTION) Skin: Decreased Turgur Musculoskeletal: Left, Shoulder, Back:Thoracic, Back:Lumbar, Tender (LLE), Deformity Psychiatric: Anxiety Affect: Anxious Speech Pattern: Clear, Appropriate - Laboratory and Diagnostics Result Diagrams: 09/17/18 04:16 09/17/18 04:16 Labs: 09/07/18 23:52 Blood Blood Culture - Final 09/07/18 23:48 Blood Blood Culture - Final 09/07/18 20:17 Urine,Clean Catch Urine Culture - Final Escherichia Coli Laboratory WBC 4.7 X10^3/uL (3.6-10.0) 09/17/18 04:16 RBC 2.67 X10^6/uL (3.5-5.4) L 09/17/18 04:16 Hgb 8.3 g/dL (12.0-16.0) L 09/17/18 04:16 Hct 24.9 % (36.0-47.0) L 09/17/18 04:16 MCV 93.5 fL (80.0-100.0) 09/17/18 04:16 MCH 31.0 pg (27.0-34.0) 09/17/18 04:16 MCHC 33.2 g/dL (33.0-35.0) 09/17/18 04:16 RDW 14.3 % (11.6-16.5) 09/17/18 04:16 Plt Count 235 X10^3/uL (150.0-450.0) 09/17/18 04:16 Plt Count Comment Adequate (ADEQUATE) 09/09/18 05:34 MPV 8.9 fL (7.4-11.0) 09/17/18 04:16 Neut % (Auto) 50.4 % (42.0-75.0) 09/17/18 04:16 Lymph % (Auto) 30.2 % (21.0-51.0) 09/17/18 04:16 [place] % (Auto) 7.6 % (0.0-13.0) 09/17/18 04:16 Eos % (Auto) 8.5 % (0.9-2.9) H 09/17/18 04:16 Baso % (Auto) 3.3 % (0.2-1.0) H 09/17/18 04:16 Neut # (Auto) 2.4 x10^3/uL (2.2-4.8) 09/17/18 04:16 Lymph # (Auto) 1.4 X10^3/uL (1.3-2.9) 09/17/18 04:16 [place] # (Auto) 0.4 x10^3/uL (0.3-0.8) 09/17/18 04:16 Eos # (Auto) 0.4 x10^3/uL (0.0-0.2) H 09/17/18 04:16 Baso # (Auto) 0.2 X10^3/uL (0.0-0.1) H 09/17/18 04:16 Absolute Nucleated RBC 0.0 /100WBC 09/17/18 04:16 Plt Morphology Comment Normal (NORMAL) 09/09/18 05:34 RBC Morphology Abnormal (NORMAL) A 09/09/18 05:34 Hypochromasia Slight A 09/09/18 05:34 Sample Site Rb 09/08/18 11:48 ABG pH 7.370 (7.35-7.45) 09/08/18 11:48 ABG pCO2 39.0 mmHg (35.0-45.0) 09/08/18 11:48 ABG pO2 76.0 mmHg (80.0-100.0) L 09/08/18 11:48 ABG HCO3 22.5 mmol/L (22-26) 09/08/18 11:48 ABG O2 Saturation 95.0 % (90-100) 09/08/18 11:48 ABG Base Excess -2.5 mmol/L (-2.0-2.0) L 09/08/18 11:48 Nathan Test Na 09/08/18 11:48 A-a Gradient 25.0 mmHg 09/08/18 11:48 FiO2 21.0 09/08/18 11:48 Blood Gas Comments Pt [place] well. cdn 09/08/18 11:48 Sodium 141 mmol/L (136-145) 09/17/18 04:16 Corrected Sodium TNP 09/17/18 04:16 Potassium 4.3 mmol/L (3.5-5.1) 09/17/18 04:16 Chloride 110 mmol/L (98-107) H 09/17/18 04:16 Carbon Dioxide 21.8 mmol/L (21-32) 09/17/18 04:16 BUN 16 mg/dL (7-18) 09/17/18 04:16 Creatinine 1.74 mg/dL (0.55-1.02) H 09/17/18 04:16 Est GFR (MDRD) Af Amer 42 (>60) L 09/17/18 04:16 Est GFR (MDRD) Non-Af 35 (>60) L 09/17/18 04:16 Glucose 82 mg/dL (65-99) 09/17/18 04:16 POC Glucose (mg/dL) 88 mg/dL (65-99) 09/17/18 16:36 Lactic Acid 1.8 mmol/L (0.4-2.0) 09/09/18 16:56 Calcium 8.3 mg/dL (8.5-10.1) L 09/17/18 04:16 Corrected Calcium 9.5 mg/dL (8.5-10.1) 09/17/18 04:16 Magnesium 1.5 mg/dL (1.7-2.9) L 09/10/18 04:57 Iron 63 ug/dL (50-175) 09/10/18 04:57 Transferrin 163 mg/dL (202-364) L 09/10/18 04:57 Ferritin 364 ng/mL (8-252) H 09/10/18 04:57 Total Bilirubin 0.30 mg/dL (0.2-1.0) 09/17/18 04:16 AST 17 Units/L (15-37) 09/17/18 04:16 ALT 21 Units/L (12-78) 09/17/18 04:16 Alkaline Phosphatase 80 Units/L (46-116) 09/17/18 04:16 Creatine Kinase 34 Units/L (26-192) 09/07/18 22:10 CK-MB (CK-2) < 1.0 ng/mL (0-4.0) 09/07/18 22:10 CK/CKMB % Calc 2.9 % (<4) 09/07/18 22:10 Troponin I < 0.02 ng/mL (0-1.5) 09/07/18 22:10 Total Protein 6.0 g/dL (6.4-8.2) L 09/17/18 04:16 Albumin 2.5 g/dL (3.4-5.0) L 09/17/18 04:16 Globulin 3.5 g/dL (2.5-4.5) 09/17/18 04:16 Albumin/Globulin Ratio 0.7 Ratio (1.1-2.1) L 09/17/18 04:16 Amylase 18 Units/L (25-115) L 09/11/18 05:40 Lipase 68 Units/L (73-393) L 09/11/18 05:40 Vitamin B12 526 pg/mL (193-986) 09/10/18 04:57 Folate 4.9 ng/mL (>8.6) L 09/10/18 04:57 Specimen Type Clean catch urine 09/07/18 20:17 Urine Color Yellow (YELLOW) 09/07/18 20:17 Urine Appearance Cloudy (CLEAR) 09/07/18 20:17 Urine pH 6.0 (5.0 - 8.0) 09/07/18 20:17 Ur Specific [place] 1.005 (1.000-1.030) 09/07/18 20:17 Urine Protein 3+ (NEGATIVE) 09/07/18 20:17 Urine Glucose (UA) 4+ (NEGATIVE) 09/07/18 20:17 Urine Ketones Negative (NEGATIVE) 09/07/18 20:17 Urine Occult Blood 3+ (NEGATIVE) 09/07/18 20:17 Urine Nitrite Negative (NEGATIVE) 09/07/18 20:17 Urine Bilirubin Negative (NEGATIVE) 09/07/18 20:17 Urine Acetone Negative (NEGATIVE) 09/08/18 00:01 Urine Urobilinogen Normal (NORMAL) 09/07/18 20:17 Ur Leukocyte Esterase 2+ (NEGATIVE) 09/07/18 20:17 Urine RBC 3-5 /HPF (NONE SEEN) 09/07/18 20:17 Urine WBC Tntc /HPF (NONE SEEN) 09/07/18 20:17 Ur Squamous Epith Cells Moderate /HPF (NEGATIVE) 09/07/18 20:17 Amorphous Sediment Trace /HPF (NEGATIVE) 09/07/18 20:17 Urine Bacteria Trace /HPF (NEGATIVE) 09/07/18 20:17 Ur Culture Indicated? Yes/culture set up 09/07/18 20:17 Stool Description 30g,brown,liquid 09/15/18 00:59 Stl Occult Blood (IFOB) Negative (NEGATIVE) 09/15/18 00:59 Acetone, Semi-Quant Negative (NEGATIVE) 09/10/18 04:57 - Plan (1) Ileus Status: Acute Plan: D/C NG TUBE ADVANCE DIET TOLERATED (2) UTI (urinary tract infection) Status: Acute Qualifiers: Urinary tract infection type: site unspecified Hematuria presence: with hematuria Qualified Code(s): N39.0 - Urinary tract infection, site not specified; R31.9 - Hematuria, unspecified Plan: IV HYDRATION, IV ATBX. UC COLLECTED ON ADMISSION, +ECOLI ON IV INVANZ. BLOOD SUGAR CONTROL. BP MONITORING. NAUSEA AND PAIN CONTROL. REPEAT AM LABS, SERUM ACETONES NEGATIVE. (3) Hyperglycemia Status: Acute (4) CKD (chronic kidney disease) stage 4, GFR 15-29 ml/min Status: Chronic (5) Gastroparesis Status: Chronic (6) CAD (coronary artery disease) Status: Chronic (7) GERD (gastroesophageal reflux disease) Status: Chronic (8) Arthritis Status: Chronic (9) Metabolic acidosis Status: Acute
[2018-09-17] MEDS: SNACK - Diabetic Appropriate PO SCH (20:59)
[2018-09-17] MEDS: CELEXA PO SCH (21:00)
[2018-09-17] MEDS: COLACE CAP 100 MG PO SCH (21:01)
[2018-09-17] MEDS: MILK OF MAGNESIA PO SCH (21:01)
[2018-09-18] MEDS: MORPHINE SULFATE INJ 2 MG INJ IVP PRN ×4 (01:32→22:38)
[2018-09-18] MEDS: NS 1/2 1000 ML IV 1,000 ML IV SCH ×3 (02:01→16:49)
[2018-09-18] MEDS: REGLAN INJ 10 MG VIAL IVP SCH ×4 (02:01→21:02)
[2018-09-18 05:41] LABS: BASOPHILS # (AUTO) 0.1 X10^3/uL (0.0-0.1); BASOPHILS % (AUTO) 2.6 % (0.2-1.0); EOSINOPHILS # (AUTO) 0.3 x10^3/uL (0.0-0.2); EOSINOPHILS % (AUTO) 6.6 % (0.9-2.9); HEMATOCRIT 25.6 % (36.0-47.0); HEMOGLOBIN 8.5 g/dL (12.0-16.0); LYMPHOCYTES # (AUTO) 1.5 X10^3/uL (1.3-2.9); LYMPHOCYTES % (AUTO) 30.5 % (21.0-51.0); MEAN CORPUSCULAR HEMOGLOBIN 31.3 pg (27.0-34.0); MEAN CORPUSCULAR VOLUME 94.9 fL (80.0-100.0); MONOCYTES # (AUTO) 0.3 x10^3/uL (0.3-0.8); MONOCYTES % (AUTO) 6.9 % (0.0-13.0); NEUTROPHILS # (AUTO) 2.6 x10^3/uL (2.2-4.8); NEUTROPHILS % (AUTO) 53.4 % (42.0-75.0); PLATELET COUNT 235 X10^3/uL (150.0-450.0); RED CELL DISTRIBUTION WIDTH 14.2 % (11.6-16.5); WHITE BLOOD COUNT 4.9 X10^3/uL (3.6-10.0)
[2018-09-18 06:04] LABS: ALBUMIN 2.7 g/dL (3.4-5.0); CALCIUM 8.2 mg/dL (8.5-10.1); CARBON DIOXIDE 24.3 mmol/L (21-32); COR CA(FOR HYPOALB) 9.2 mg/dL (8.5-10.1); CREATININE 1.87 mg/dL (0.55-1.02); TOTAL PROTEIN 6.1 g/dL (6.4-8.2)
[2018-09-18] MEDS: SODIUM BICARBONATE TAB 650MG PO SCH ×3 (08:00→16:49)
[2018-09-18] MEDS ORDERED: LASIX IVP SCH (09:00)
[2018-09-18] MEDS: ASPIRIN PO SCH (09:09)
[2018-09-18] MEDS: PROTONIX INJ 40 MG VIAL IVP SCH ×2 (09:10→21:02)
[2018-09-18] MEDS: INVANZ INJ 1 GM VIAL 1 GM in NS 100 ML IV + SPIKE MINIBAG* 100 ML IV SCH (09:10)
[2018-09-18] MEDS: LOPRESSOR TAB 25 MG PO SCH ×2 (09:10→21:01)
[2018-09-18] MEDS: MAG-OX TAB PO SCH (09:10)
[2018-09-18] MEDS: EFFEXOR XR 75 MG CAP PO SCH (09:10)
[2018-09-18] MEDS: LIPITOR TAB 20 MG PO SCH (09:10)
[2018-09-18] MEDS: TOPAMAX PO SCH (09:11)
[2018-09-18] MEDS: PLAVIX PO SCH (09:30)
[2018-09-18] MEDS: NORCO 10/325 TAB PO PRN ×2 (10:25→21:02)
[2018-09-18] MEDS ORDERED: NS 1/2 1000 ML IV 1,000 ML ONE (11:31)
--- NOTE | 2018-09-18 11:52 | CT ---
HISTORY: Leg pain. Study: CT left tibia/fibula without contrast Comparison: Left tibial series dated October 26, 2016. . Technique: Multiple axial images of the left tibia/fibula without administration of IV contrast. Sagittal and coronal reformats were performed and reviewed. Dose reduction techniques including Automated Exposure Control (AEC) and adjustment of mA and kV were utilized. Findings: Remote fractures of the proximal left fibula and left distal tibia with cortical lucencies associated with prior instrumentation. Incomplete healing is again seen of the fracture sites, which is worse at the left distal tibia. No acute fracture or dislocation. Degenerative changes are seen about the knee and ankle. Severe vascular calcifications. Extensive soft tissue edema and trace free fluid. No focal fluid collection to suggest abscess formation. No obvious free air. Muscle atrophy is also seen. IMPRESSION: 1. Nonspecific and extensive soft tissue edema. Recommend clinical/laboratory correlation. 2. Other chronic findings as above. Reported By:
[2018-09-18] MEDS: CELEXA PO SCH (21:02)
[2018-09-18] MEDS: SNACK - Diabetic Appropriate PO SCH (22:00)
[2018-09-18] MEDS: COLACE CAP 100 MG PO SCH (22:28)
[2018-09-18] MEDS: MILK OF MAGNESIA PO SCH (22:28)
[2018-09-19] MEDS: REGLAN INJ 10 MG VIAL IVP SCH ×2 (03:28→09:49)
[2018-09-19] MEDS: MORPHINE SULFATE INJ 2 MG INJ IVP PRN (05:12)
[2018-09-19 05:22] LABS: BASOPHILS # (AUTO) 0.1 X10^3/uL (0.0-0.1); BASOPHILS % (AUTO) 3.1 % (0.2-1.0); EOSINOPHILS # (AUTO) 0.3 x10^3/uL (0.0-0.2); HEMATOCRIT 25.2 % (36.0-47.0); HEMOGLOBIN 8.4 g/dL (12.0-16.0); LYMPHOCYTES # (AUTO) 1.6 X10^3/uL (1.3-2.9); LYMPHOCYTES % (AUTO) 36.5 % (21.0-51.0); MEAN CORPUSCULAR HEMOGLOBIN 31.1 pg (27.0-34.0); MEAN CORPUSCULAR HGB CONC 33.2 g/dL (33.0-35.0); MEAN CORPUSCULAR VOLUME 93.7 fL (80.0-100.0); MONOCYTES # (AUTO) 0.3 x10^3/uL (0.3-0.8); MONOCYTES % (AUTO) 6.7 % (0.0-13.0); NEUTROPHILS % (AUTO) 46.7 % (42.0-75.0); PLATELET COUNT 239 X10^3/uL (150.0-450.0); RED BLOOD COUNT 2.69 X10^6/uL (3.5-5.4); WHITE BLOOD COUNT 4.3 X10^3/uL (3.6-10.0)
[2018-09-19 05:48] LABS: ALANINE AMINOTRANSFERASE 17 Units/L (12-78); ALBUMIN 2.7 g/dL (3.4-5.0); ALKALINE PHOSPHATASE 72 Units/L (46-116); ASPARTATE AMINO TRANSFERASE 14 Units/L (15-37); BLOOD UREA NITROGEN 13 mg/dL (7-18); CALCIUM 8.4 mg/dL (8.5-10.1); CARBON DIOXIDE 24.9 mmol/L (21-32); CHLORIDE 108 mmol/L (98-107); COR CA(FOR HYPOALB) 9.4 mg/dL (8.5-10.1); CREATININE 1.96 mg/dL (0.55-1.02); SODIUM 142 mmol/L (136-145); TOTAL PROTEIN 6.2 g/dL (6.4-8.2); eGFR NON BLACK RACES 30 (>60)
[2018-09-19] MEDS: SODIUM BICARBONATE TAB 650MG PO SCH (06:07)
[2018-09-19] MEDS: INVANZ INJ 1 GM VIAL 1 GM in NS 100 ML IV + SPIKE MINIBAG* 100 ML IV SCH (09:48)
[2018-09-19] MEDS: LIPITOR TAB 20 MG PO SCH (09:49)
[2018-09-19] MEDS: ASPIRIN PO SCH (09:49)
[2018-09-19] MEDS: EFFEXOR XR 75 MG CAP PO SCH (09:49)
[2018-09-19] MEDS: NORCO 10/325 TAB PO PRN (09:49)
[2018-09-19] MEDS: PROTONIX INJ 40 MG VIAL IVP SCH (09:49)
[2018-09-19] MEDS: PLAVIX PO SCH (09:50)
[2018-09-19] MEDS: TOPAMAX PO SCH (09:50)
[2018-09-19] MEDS: MAG-OX TAB PO SCH (09:50)
[2018-09-19] MEDS: LOPRESSOR TAB 25 MG PO SCH (09:51)
[2018-09-19 13:04] VITALS: BP 170/80
== END 2018-09-19 14:00 | disposition home or self-care (01) | DRG 638 ==
LOC: ER 19:59 → ICU 22:01 → MED/SURG 09-18 12:23
PROVIDERS: ADMIT Internal Medicine; ATTEND Internal Medicine
DX: I12.9 Hypertensive chronic kidney disease with stage 1 through stage 4 chronic kidney disease, or unspecified chronic kidney disease; R11.2 Nausea with vomiting, unspecified; N39.0 Urinary tract infection, site not specified; E87.1 Hypo-osmolality and hyponatremia; R31.9 Hematuria, unspecified; F41.8 Other specified anxiety disorders; E10.43 Type 1 diabetes mellitus with diabetic autonomic (poly)neuropathy; R94.4 Abnormal results of kidney function studies; R26.89 Other abnormalities of gait and mobility; N18.4 Chronic kidney disease, stage 4 (severe); K31.84 Gastroparesis; Z79.4 Long term (current) use of insulin; K21.9 Gastro-esophageal reflux disease without esophagitis; E10.10 Type 1 diabetes mellitus with ketoacidosis without coma; K56.7 Ileus, unspecified; M13.89 Other specified arthritis, multiple sites; R79.89 Other specified abnormal findings of blood chemistry; N17.8 Other acute kidney failure
CPT/HCPCS: 36415; 36600; 71010; 71045; 73700; 74000; 74018; 80048; 80053; 81001; 82009; 82150; 82270; 82550; 82553; 82607; 82728; 82746; 82803; 82947; 83540; 83605; 83690; 83735; 84466; 84484; 85014; 85018; 85025; 86140; 87040; 87086; 87088; 87186; 93005; 96365; 96367; 96372; 96374; 96375; 97110; 97112; 97162; 97166; 97530; 97535; 99221; 99285; A4222; C9113; J0360; J0696; J1335; J1815; J1885; J1940; J2270; J2405; J2550; J2765; J3490; J7030; J7050

== ENCOUNTER 2018-09-23 15:26 | Observation (INO) ==
--- NOTE | 2018-09-23 16:59 | CT ---
CT cervical spine without contrast Indication: AMS and increased falling Technique: Helical CT images of the cervical spine were obtained without IV contrast. Reformatted images in the coronal and sagittal planes were also generated for review. Comparison: None Findings: Vertebral body heights and alignment are normal. No acute fracture or subluxation is identified. There is no prevertebral soft tissue swelling. No significant degenerative changes are appreciated. Visualized lung apices are clear. Impression: No acute fracture or subluxation of the cervical spine. Reported By:
--- NOTE | 2018-09-23 17:03 | CT ---
CT HEAD WITHOUT CONTRAST CLINICAL HISTORY: 38-year-old female with altered mental status and repeated falls. COMPARISON: CT head 10/28/2017. TECHNIQUE: Multiple axial CT images were obtained from the skull base to the cranial vertex without the administration of contrast. FINDINGS: No evidence of abnormal intra- or extra axial fluid collections, midline shift, or mass effect. Willis white differentiation is maintained. Age advanced cortical volume loss is present, with commensurate sulcal and ventricular prominence. The basal cisterns are normal in appearance. Right phthisis bulbi. Chronic right maxillary sinusitis status post right uncinectomy and maxillary antrostomy. Chronic sinusitis right ethmoid air cells with the remaining paranasal sinuses, mastoid air cells and tympanic cavities clear. IMPRESSION: 1. No acute intracranial process. 2. Chronic right maxillary and ethmoid sinusitis as above. 3. Right phthisis bulbi. Reported By:
--- NOTE | 2018-09-23 17:06 | RAD ---
SHOULDER RADIOGRAPHS CLINICAL HISTORY: 38-year-old female status post fall with arm numbness. COMPARISON: Left shoulder radiographs 10/02/2017. FINDINGS: Status post median sternotomy with surgical clips overlying the left hemithorax unchanged. 2 views of the left shoulder were obtained. There is no acute fracture. The alignment is normal. The glenohumeral and acromioclavicular joints are congruent. There is no aggressive bone lesion or abnormal periosteal reaction. There is no soft tissue calcification or gas. The left lung apex is clear. IMPRESSION: No acute fracture or malalignment of left shoulder. Reported By:
[2018-09-23 17:13] LABS: BILIRUBIN,URINE NEGATIVE (NEGATIVE); BLOOD/HEMOGLOBIN,URINE 3+ (NEGATIVE); GLUCOSE, URINE 4+ (NEGATIVE); KETONES,URINE NEGATIVE (NEGATIVE); LEUKOCYTE ESTERASE ,URINE 1+ (NEGATIVE); NITRITES,URINE NEGATIVE (NEGATIVE); PROTEIN,URINE 4+ (NEGATIVE); UROBILINOGEN,URINE NORMAL (NORMAL)
[2018-09-23 17:26] LABS: APPEARANCE,URINE SLIGHTLY HAZY (CLEAR); COLOR,URINE YELLOW (YELLOW)
[2018-09-23 17:27] LABS: BACTERIA,URINE TRACE /HPF (NEGATIVE); SQUAMOUS EPITHELIAL CELL,UR MANY /HPF (NEGATIVE)
[2018-09-23 17:29] LABS: BASOPHILS # (AUTO) 0.2 X10^3/uL (0.0-0.1); BASOPHILS % (AUTO) 2.2 % (0.2-1.0); EOSINOPHILS # (AUTO) 0.1 x10^3/uL (0.0-0.2); EOSINOPHILS % (AUTO) 1.9 % (0.9-2.9); HEMATOCRIT 32.5 % (36.0-47.0); HEMOGLOBIN 10.8 g/dL (12.0-16.0); LYMPHOCYTES % (AUTO) 13.2 % (21.0-51.0); MEAN CORPUSCULAR HEMOGLOBIN 30.5 pg (27.0-34.0); MEAN CORPUSCULAR HGB CONC 33.2 g/dL (33.0-35.0); MEAN CORPUSCULAR VOLUME 91.8 fL (80.0-100.0); MEAN PLATELET VOLUME 8.9 fL (7.4-11.0); MONOCYTES # (AUTO) 0.6 x10^3/uL (0.3-0.8); MONOCYTES % (AUTO) 8.3 % (0.0-13.0); NEUTROPHILS # (AUTO) 5.5 x10^3/uL (2.2-4.8); NEUTROPHILS % (AUTO) 74.4 % (42.0-75.0); PLATELET COUNT 252 X10^3/uL (150.0-450.0); RED BLOOD COUNT 3.54 X10^6/uL (3.5-5.4); WHITE BLOOD COUNT 7.4 X10^3/uL (3.6-10.0)
[2018-09-23 17:41] LABS: ALANINE AMINOTRANSFERASE 24 Units/L (12-78); ALBUMIN 3.7 g/dL (3.4-5.0); ALKALINE PHOSPHATASE 99 Units/L (46-116); ASPARTATE AMINO TRANSFERASE 12 Units/L (15-37); BLOOD UREA NITROGEN 25 mg/dL (7-18); CALCIUM 8.8 mg/dL (8.5-10.1); CARBON DIOXIDE 21.3 mmol/L (21-32); CHLORIDE 106 mmol/L (98-107); CREATININE 2.29 mg/dL (0.55-1.02); SODIUM 141 mmol/L (136-145); TOTAL PROTEIN 7.9 g/dL (6.4-8.2); eGFR NON BLACK RACES 25 (>60)
[2018-09-23] MEDS: NORCO 10/325 TAB PO PRN ×2 (18:14→22:19)
--- NOTE | 2018-09-23 18:54 | DR.AMS ---
HPI Time Seen Time Seen by Provider: 09/23/18 16:12 PCP Primary Care Physician: DAVID HPI Comment HPI Comment: PATIENT IS 38YR OLD WHITE FEMALE WITH HISTORY OF DM AND HTN IS IN ED FOR AMS AND FREQUENT FALLS. SHE WAS DISCHARGE FROM [facility] 3 DAYS AGO AFTER [facility]REAMENT FOR DKA AND DIABETIC GASTROPARESIS WELL UTI. SHE WAS RECOVERY FROM THIS ILLNESS WHEN INCREASING WEAKNESS WAS NOTED. FELL OVER 4 TIMES TODAY AND IS FINDING DIFFICULTY TRANSFERING TO HER WHEELCHAIR. SHE IS HALLUCINATING TODAY WELL. Complaint Cheif Complaint Doctors Comments: AMS AND FREQUENT FALLS NOTED TODAY. Chief Complaint:: PT C/O AMS AND INCREASED FALLING. PT STATES THIS MORNING HER HANDS STARTED TO GO NUMB AND SHE WAS UNABLE TO GET INTO HER W/C. PT STATES SHE HAS FALLEN X 3-4 TIMES. EMS STATES PT WAS HALLUCINATING AND SPEAKING TO PEOPLE THAT WAS NOT THERE Reviewed Nurses Notes Reviewed: Yes Source History Provided: Patient and EMS Mode of Arrival Mode of Arrival: EMS Timing Onset of Chief Complaint: 09/23/18 Came On: Suddenly Symptoms: Unchanged Duration Duration: Constant Duration: Days Quality Quality: Confusion Severity Severity: Moderate Context Recent: Nausea History Of: Hypoglycemia, Diabetes and On Insulin Associated Signs and Symptoms Associated Signs and Symptoms: Generalized Weakness, Change in Behavior, Confusion and Other (FREQUENT FALLS.) Other History Other History: DM. PMH PMH Past Medical History: Yes Past Medical History: Anxiety, Arthritis, Cirrhosis, CHF, Diabetes, Migraines, GERD, Headaches, Hypertension and Renal Disease Past Surgical History: Yes Surgical History: , CABG/Valve Surgery, Cholecystectomy, Ortho Surgery and Other Family History History of Family Medical Conditions: Yes Family Medical History: Diabetes Mellitus, Cancer, [place], Sudden Cardiac and Hypertension Social History Does any household member use tobacco: No Alcohol Use: None Do you use any recreational Drugs:: No Lives With: Family infectious screening In the last 2 months have you had wt loss of >10#?: NO Have you had fever, night sweats or hemotysis?: No Have you traveled outside the country in the last 6 months?: No Isolation: Standard ROS Review of Systems Constitutional: Weakness, Fatigue and Loss of Appetite Eyes: No Symptoms Reported ENTM: No Symptoms Reported Respiratoy: No Symptoms Reported Cardiovascular: No Symptoms Reported Gastrointestinal/Abdominal: Nausea Genitourinary: No Symptoms Reported Neurological: Weakness Musculoskeletal: Muscle Pain and Other (RT BKA) Integumentary: No Symptoms Reported Hematologic/Lymphatic: Easy Bruising Endocrine: Decreased Appetite Psychiatric: Hallucinations Unable to Obtain Due To: Altered mental status PE Vitals Vital Signs: Temp Pulse Pulse Resp BP BP BP 09/25/18 08:00 98.1 F 73 23 141/64 09/25/18 07:00 93 H 22 123/88 09/25/18 06:00 88 22 146/74 09/25/18 05:00 94 H 31 H 148/73 09/25/18 04:00 98.2 F 75 20 149/74 09/25/18 03:00 81 24 162/76 09/25/18 02:00 71 20 152/75 09/25/18 00:00 98.2 F 09/24/18 23:00 80 81 H 143/66 09/24/18 22:00 76 23 137/97 09/24/18 21:00 91 H 17 140/71 09/24/18 20:00 98.1 F 93 H 19 185/84 09/24/18 19:00 83 24 152/67 09/24/18 18:22 18 09/24/18 18:00 85 20 178/90 09/24/18 17:22 17 09/24/18 17:00 83 19 183/89 09/24/18 16:00 99.0 F 77 22 133/75 09/24/18 15:00 76 19 134/86 09/24/18 14:00 74 20 131/63 09/24/18 13:00 71 15 138/70 09/24/18 12:00 97.7 F 73 14 117/64 09/24/18 11:00 80 20 117/88 09/24/18 10:42 22 09/24/18 10:00 91 H 22 132/83 09/24/18 09:43 21 09/24/18 09:00 87 16 141/95 09/24/18 08:00 97.0 F L 87 19 140/81 09/24/18 07:00 76 17 132/73 09/24/18 06:00 72 25 H 119/57 09/24/18 05:00 80 18 142/63 09/24/18 04:00 98.5 F 75 27 H 93/51 09/24/18 03:00 77 25 H 93/58 09/24/18 02:00 104 H 20 143/65 09/24/18 01:15 88 18 09/24/18 01:00 80 20 181/87 09/24/18 00:45 79 21 09/24/18 00:30 82 25 H 09/24/18 00:15 98.3 F 80 18 09/24/18 00:01 80 27 H 174/82 09/24/18 00:00 81 21 09/23/18 23:45 80 20 09/23/18 23:30 80 25 H 09/23/18 23:19 16 09/23/18 23:15 78 23 09/23/18 23:01 79 17 176/83 09/23/18 23:00 79 22 09/23/18 22:45 83 18 09/23/18 22:30 83 26 H 09/23/18 22:19 20 09/23/18 22:17 94 H 21 208/87 09/23/18 22:15 94 H 31 H 09/23/18 22:01 86 21 222/103 09/23/18 22:00 87 21 09/23/18 21:45 83 21 09/23/18 21:30 84 21 09/23/18 21:15 80 22 09/23/18 21:00 79 18 172/86 09/23/18 20:45 79 17 09/23/18 20:38 98.0 F 77 8 L 188/86 09/23/18 20:00 77 20 135/67 09/23/18 19:31 77 16 140/74 09/23/18 19:14 18 09/23/18 19:00 78 16 153/74 09/23/18 18:14 20 09/23/18 16:47 80 20 133/72 09/23/18 15:28 98.2 F 82 18 141/81 09/19/18 12:00 170/80 170/80 09/18/18 16:00 149/70 Pulse Ox 09/25/18 08:00 98 09/25/18 07:00 99 09/25/18 06:00 97 09/25/18 05:00 97 09/25/18 04:00 97 09/25/18 03:00 94 L 09/25/18 02:00 97 09/25/18 00:00 09/24/18 23:00 99 09/24/18 22:00 99 09/24/18 21:00 98 09/24/18 20:00 100 09/24/18 19:00 91 L 09/24/18 18:22 09/24/18 18:00 98 09/24/18 17:22 09/24/18 17:00 99 09/24/18 16:00 97 09/24/18 15:00 97 09/24/18 14:00 99 09/24/18 13:00 96 09/24/18 12:00 96 09/24/18 11:00 96 09/24/18 10:42 09/24/18 10:00 96 09/24/18 09:43 09/24/18 09:00 96 09/24/18 08:00 98 09/24/18 07:00 98 09/24/18 06:00 96 09/24/18 05:00 96 09/24/18 04:00 94 L 09/24/18 03:00 96 09/24/18 02:00 96 09/24/18 01:15 96 09/24/18 01:00 97 09/24/18 00:45 97 09/24/18 00:30 98 09/24/18 00:15 97 09/24/18 00:01 97 09/24/18 00:00 98 09/23/18 23:45 97 09/23/18 23:30 98 09/23/18 23:19 09/23/18 23:15 97 09/23/18 23:01 97 09/23/18 23:00 96 09/23/18 22:45 99 09/23/18 22:30 97 09/23/18 22:19 09/23/18 22:17 99 09/23/18 22:15 98 09/23/18 22:01 97 09/23/18 22:00 98 09/23/18 21:45 99 09/23/18 21:30 99 09/23/18 21:15 99 09/23/18 21:00 99 09/23/18 20:45 99 09/23/18 20:38 98 09/23/18 20:00 99 09/23/18 19:31 99 09/23/18 19:14 09/23/18 19:00 99 09/23/18 18:14 09/23/18 16:47 100 09/23/18 15:28 99 09/19/18 12:00 09/18/18 16:00 General Limitations: Altered Mental Status General Appearance: In No Apparent Distress Head Head Exam: Normal Inspection Head Exam Physical: Laceration Eyes Eye exam: Normal Appearance Pupils: Regular, Round: Left (BLINDNESS RT EYE.) ENT ENT Exam: Normal Exam External Ear Exam: Normal External Inspection TM/Canal Exam: Bilateral: Normal Nose Exam: Normal Nose Exam Mouth Exam: Normal Inspection Throat Exam: Normal Inspection Neck Neck Exam: Normal Inspection; negative Tenderness, Meningismus and Lymphadenopathy Chest Chest Inspection: Normal Inspection and Symmetric Chest Wall Rise Respiratory Respiratory Exam: Normal Lung Sounds Bilat Respiratory Exam: Bilateral: Rhonchi and Lower: Rhonchi Cardiovascular Cardiovascular Exam: Regular Rate and Normal Rhythm Abdominal Exam Abdominal Exam: Normal Bowel Sounds and Soft; negative Tenderness Extremities Extremities Exam: Other (RT BKA) Back Back Exam: Normal Inspection Neurological Neurological Exam: Alert; negative Motor Sensory Deficit Patient Oriented To: Person Cranial Nerve Exam: Gag reflex (XI): Normal Upper Motor Neuron Exam: Babinski Sign: Normal (LEFT SIDE NORMAL, RT BKA.) Psychological Psychiatric Exam: Other (HALUCINATING, VISUAL) Skin Skin Exam: Dry MDM Additional Information Obtained Additional Information Obtained From: Old Records Differential Diagnosis Metabolic: Dehydration, DKA, Hypercalcemia, Hypernatremia, Hypoglycemia and Hyponatremia Structural: Closed Head Injury, CVA and Mass Lesion Infectious: Sepsis and UTI COURSE Treatment Treatment: SEE ORDER. Consultation Consultation Comments: DR. HERNANDEZ ACCEPTED PATIENT FOR ADMISSION. Education/Counseling Education/Counseling: Patient Educated On: Diagnosis ROR Labs Reviewed Laboratory Results Reviewed?: Yes Result Diagrams: 09/25/18 05:34 09/25/18 05:34 Laboratory: WBC 3.7 X10^3/uL (3.6-10.0) 09/25/18 05:34 RBC 2.71 X10^6/uL (3.5-5.4) L 09/25/18 05:34 Hgb 8.4 g/dL (12.0-16.0) L 09/25/18 05:34 Hct 25.0 % (36.0-47.0) L 09/25/18 05:34 MCV 92.4 fL (80.0-100.0) 09/25/18 05:34 MCH 31.0 pg (27.0-34.0) 09/25/18 05:34 MCHC 33.5 g/dL (33.0-35.0) 09/25/18 05:34 RDW 14.2 % (11.6-16.5) 09/25/18 05:34 Plt Count 167 X10^3/uL (150.0-450.0) 09/25/18 05:34 MPV 9.5 fL (7.4-11.0) 09/25/18 05:34 Neut % (Auto) 48.1 % (42.0-75.0) 09/25/18 05:34 Lymph % (Auto) 36.1 % (21.0-51.0) 09/25/18 05:34 [place] % (Auto) 6.0 % (0.0-13.0) 09/25/18 05:34 Eos % (Auto) 7.1 % (0.9-2.9) H 09/25/18 05:34 Baso % (Auto) 2.7 % (0.2-1.0) H 09/25/18 05:34 Neut # (Auto) 1.8 x10^3/uL (2.2-4.8) L 09/25/18 05:34 Lymph # (Auto) 1.3 X10^3/uL (1.3-2.9) 09/25/18 05:34 [place] # (Auto) 0.2 x10^3/uL (0.3-0.8) L 09/25/18 05:34 Eos # (Auto) 0.3 x10^3/uL (0.0-0.2) H 09/25/18 05:34 Baso # (Auto) 0.1 X10^3/uL (0.0-0.1) 09/25/18 05:34 Absolute Nucleated RBC 0.1 /100WBC 09/25/18 05:34 Sample Site Rr 09/24/18 09:25 ABG pH 7.400 (7.35-7.45) 09/24/18 09:25 ABG pCO2 30.0 mmHg (35.0-45.0) L 09/24/18 09:25 ABG pO2 94.0 mmHg (80.0-100.0) 09/24/18 09:25 ABG HCO3 18.6 mmol/L (22-26) L 09/24/18 09:25 ABG O2 Saturation 97.0 % (90-100) 09/24/18 09:25 ABG Base Excess -5.1 mmol/L (-2.0-2.0) L 09/24/18 09:25 Nathan Test Pos 09/24/18 09:25 A-a Gradient 18.0 mmHg 09/24/18 09:25 FiO2 21.0 09/24/18 09:25 Blood Gas Comments Jona well mm/gmb 09/24/18 09:25 Sodium 143 mmol/L (136-145) 09/25/18 05:34 Corrected Sodium 146 mmol/L (136-145) H 09/25/18 05:34 Potassium 4.1 mmol/L (3.5-5.1) 09/25/18 05:34 Chloride 110 mmol/L (98-107) H 09/25/18 05:34 Carbon Dioxide 19.9 mmol/L (21-32) L 09/25/18 05:34 BUN 16 mg/dL (7-18) 09/25/18 05:34 Creatinine 1.87 mg/dL (0.55-1.02) H 09/25/18 05:34 Est GFR (MDRD) Af Amer 39 (>60) L 09/25/18 05:34 Est GFR (MDRD) Non-Af 32 (>60) L 09/25/18 05:34 Glucose 209 mg/dL (65-99) H 09/25/18 05:34 POC Glucose (mg/dL) 203 mg/dL (65-99) H 09/25/18 05:40 Calcium 8.2 mg/dL (8.5-10.1) L 09/25/18 05:34 Corrected Calcium 9.0 mg/dL (8.5-10.1) 09/25/18 05:34 Magnesium 2.6 mg/dL (1.7-2.9) 09/25/18 05:34 Total Bilirubin 0.40 mg/dL (0.2-1.0) 09/25/18 05:34 AST 18 Units/L (15-37) 09/25/18 05:34 ALT 22 Units/L (12-78) 09/25/18 05:34 Alkaline Phosphatase 81 Units/L (46-116) 09/25/18 05:34 Ammonia 21 umol/L (11-32) 09/24/18 05:40 Total Protein 6.4 g/dL (6.4-8.2) 09/25/18 05:34 Albumin 3.0 g/dL (3.4-5.0) L 09/25/18 05:34 Globulin 3.4 g/dL (2.5-4.5) 09/25/18 05:34 Albumin/Globulin Ratio 0.9 Ratio (1.1-2.1) L 09/25/18 05:34 Specimen Type Clean catch urine 09/23/18 17:05 Urine Color Yellow (YELLOW) 09/23/18 17:05 Urine Appearance Slightly hazy (CLEAR) 09/23/18 17:05 Urine pH 7.0 (5.0 - 8.0) 09/23/18 17:05 Ur Specific [place] 1.010 (1.000-1.030) 09/23/18 17:05 Urine Protein 4+ (NEGATIVE) 09/23/18 17:05 Urine Glucose (UA) 4+ (NEGATIVE) 09/23/18 17:05 Urine Ketones Negative (NEGATIVE) 09/23/18 17:05 Urine Occult Blood 3+ (NEGATIVE) 09/23/18 17:05 Urine Nitrite Negative (NEGATIVE) 09/23/18 17:05 Urine Bilirubin Negative (NEGATIVE) 09/23/18 17:05 Urine Urobilinogen Normal (NORMAL) 09/23/18 17:05 Ur Leukocyte Esterase 1+ (NEGATIVE) 09/23/18 17:05 Urine RBC 3-5 /HPF (NONE SEEN) 09/23/18 17:05 Urine WBC 3-5 /HPF (NONE SEEN) 09/23/18 17:05 Ur Squamous Epith Cells Many /HPF (NEGATIVE) 09/23/18 17:05 Urine Bacteria Trace /HPF (NEGATIVE) 09/23/18 17:05 Ur Culture Indicated? No/not indicated 09/23/18 17:05 Acetone, Semi-Quant Negative (NEGATIVE) 09/25/18 05:34 XRAY XRAY Findings: REPORT ON RECORD NOTED AND TRY TO DISCUSS IT WITH PATIENT.
[2018-09-23] MEDS ORDERED: NS 1000 ML 1,000 ML IV SCH (19:00)
[2018-09-23] MEDS ORDERED: NS 1000 ML 1,000 ML IV ONE (19:01)
[2018-09-23] MEDS: NS 1000 ML 1,000 ML IV SCH (20:02)
[2018-09-23 21:15] VITALS: BMI 35.8
[2018-09-23] MEDS ORDERED: PHENERGAN INJ 25 MG IM PRN (22:07)
[2018-09-23] MEDS ORDERED: NORMODYNE INJ 20 MG VIAL IVP PRN (22:08)
[2018-09-23] MEDS ORDERED: PHENERGAN INJ 25 MG IM ONE (22:10)
[2018-09-23] MEDS ORDERED: CATAPRES TAB 0.1 MG PO PRN (22:30)
[2018-09-23] MEDS ORDERED: APRESOLINE INJ 20 MG VIAL IVP PRN (22:32)
[2018-09-23] MEDS ORDERED: ZESTRIL TAB 10 MG ONE (22:37)
[2018-09-23] MEDS ORDERED: CATAPRES TAB 0.1 MG ONE (22:37)
[2018-09-23] MEDS: ZESTRIL TAB 10 MG PO SCH (22:38)
[2018-09-23] MEDS ORDERED: PHENERGAN TAB 25 MG PO PRN (22:57)
[2018-09-23] MEDS ORDERED: LYRICA CAP 50 MG PO PRN (22:57)
[2018-09-24] MEDS: NS 1000 ML 1,000 ML IV SCH ×4 (05:00→21:36)
[2018-09-24 07:17] LABS: ALBUMIN 2.9 g/dL (3.4-5.0); CALCIUM 8.1 mg/dL (8.5-10.1); CARBON DIOXIDE 20.7 mmol/L (21-32); CREATININE 1.97 mg/dL (0.55-1.02); MAGNESIUM 1.4 mg/dL (1.7-2.9); TOTAL PROTEIN 6.4 g/dL (6.4-8.2)
[2018-09-24 07:21] LABS: BASOPHILS # (AUTO) 0.1 X10^3/uL (0.0-0.1); BASOPHILS % (AUTO) 2.1 % (0.2-1.0); EOSINOPHILS # (AUTO) 0.2 x10^3/uL (0.0-0.2); EOSINOPHILS % (AUTO) 3.8 % (0.9-2.9); HEMATOCRIT 26.5 % (36.0-47.0); HEMOGLOBIN 8.9 g/dL (12.0-16.0); LYMPHOCYTES # (AUTO) 1.5 X10^3/uL (1.3-2.9); LYMPHOCYTES % (AUTO) 27.8 % (21.0-51.0); MEAN CORPUSCULAR HEMOGLOBIN 31.2 pg (27.0-34.0); MEAN CORPUSCULAR HGB CONC 33.7 g/dL (33.0-35.0); MEAN CORPUSCULAR VOLUME 92.5 fL (80.0-100.0); MEAN PLATELET VOLUME 9.7 fL (7.4-11.0); MONOCYTES # (AUTO) 0.3 x10^3/uL (0.3-0.8); MONOCYTES % (AUTO) 5.9 % (0.0-13.0); NEUTROPHILS # (AUTO) 3.2 x10^3/uL (2.2-4.8); NEUTROPHILS % (AUTO) 60.4 % (42.0-75.0); PLATELET COUNT 181 X10^3/uL (150.0-450.0); RED BLOOD COUNT 2.86 X10^6/uL (3.5-5.4); RED CELL DISTRIBUTION WIDTH 13.9 % (11.6-16.5); WHITE BLOOD COUNT 5.3 X10^3/uL (3.6-10.0)
[2018-09-24] MEDS: LYRICA CAP 50 MG PO SCH ×2 (08:04→21:15)
[2018-09-24] MEDS: ZESTRIL TAB 10 MG PO SCH (08:04)
[2018-09-24] MEDS: CATAPRES TAB 0.1 MG PO SCH (09:15)
[2018-09-24 09:26] LABS: SERUM ACETONE NEGATIVE (NEGATIVE)
[2018-09-24 09:30] LABS: ABG BASE EXCESS -5.1 mmol/L (-2.0-2.0); ABG HCO3 18.6 mmol/L (22-26)
[2018-09-24 09:31] LABS: AMMONIA 21 umol/L (11-32)
[2018-09-24 09:31] LABS: ABG ALLEN TEST POS
[2018-09-24] MEDS: NORCO 10/325 TAB PO PRN ×2 (09:43→17:22)
[2018-09-24] MEDS: HumuLIN R SC PRN ×2 (10:52→16:18)
--- NOTE | 2018-09-24 13:14 | DR.H&P ---
H&P - History & Physical for Day of: H&P Date: 09/23/18 - Chief Complaint Chief Complaint: AMS - History of Present Illness History of Present Illness: 38 WF ER ADMISSION WITH C/O AMS AND INCREASED FALLING. PT STATES THIS MORNING HER HANDS STARTED TO GO NUMB AND SHE WAS UNABLE TO GET INTO HER W/C. PT STATES SHE HAS FALLEN X 3-4 TIMES. EMS STATES PT WAS HALLUCINATING AND SPEAKING TO PEOPLE THAT WAS NOT THERE , GLUCOSE 52 ON CMP. PT RECENTLY INPT FOR DKA AND COLONIC ILEUS. PT HAS PMH OF CHF, CAD, HTN, DM, BLINDNESS, CRF, OA, IRMA. - Past Medical History Past Medical History: Hypertension, Diabetes, Renal Disease, Cirrhosis, Anxiety, GERD, Arthritis, Migraines, Headaches, CHF - Past Surgical History Surgical History: , CABG/Valve Surgery, Cholecystectomy, Ortho Surgery, Other - Family History Family Medical History: Diabetes Mellitus, Cancer, [place], Sudden Cardiac , Hypertension - Social History Type of Tobacco Use: None Does any household member use tobacco: No Alcohol Use: None Drug Use: None - Medications Home Medications: No Known Drug Allergies Allergy (Verified 09/07/18 20:22) - Review of Systems Constitutional: Weakness Eyes: No Symptoms Reported ENT: No Symptoms Reported Respiratory: No Symptoms Reported Cardiovascular: No Symptoms Reported Genitourinary: No Symptoms Reported Musculoskeletal: Shoulder Pain, Arm Pain, Back Pain, Leg Pain Skin: No Symptoms Reported Neurological: Weakness, Confusion - Physical Exam Vital Signs: Temperature 97.0 F Pulse Rate [Left Radial] 77 Pulse Rate 80 Respiratory Rate 20 Blood Pressure [Left Arm] 135/67 Blood Pressure [Right Arm] 149/70 Blood Pressure 117/88 O2 Sat by Pulse Oximetry 96 Oriented: Person Eyes: Blurred Vision Ear: Normal Nose: Normal Throat: Dry Respiratory: RLL Diminished, LLL Diminished Cardiovascular: Normal, Edema : Normal Auscultation: Bowel Sounds: Normal Palpation: Normal Tenderness: Normal Skin: Normal Musculoskeletal: Back:Lumbar, Deformity Psychiatric: Anxiety Affect: Anxious Speech Pattern: Clear, Appropriate - Assessment/Plan (1) Altered mental status Status: Acute Plan: SUSPECT DUE TO HYPOGLYCEMIA. WILL VERIFY AND RESUME HOME MEDICATION. SERUM ACETONE, ABG. CXR ON ADMISSION. CT HEAD. BS CONTROL (2) CKD (chronic kidney disease) stage 4, GFR 15-29 ml/min Status: Chronic (3) Diabetes mellitus type 1 Qualifiers: Status: Chronic (4) Hypertension Status: Chronic (5) History of coronary artery disease Status: Chronic (6) GERD (gastroesophageal reflux disease) Status: Chronic - Allergies Allergies/Adverse Reactions: Allergies Allergy/AdvReac Type Severity Reaction Status Date / Time No Known Drug Allergies Allergy Verified 09/07/18 20:22
[2018-09-25] MEDS ORDERED: MAGNESIUM SULFATE 1 GRAM/100 mL PREMIX 4 G/400 ML BAG IV ONE (00:32)
[2018-09-25] MEDS: MAGNESIUM SULFATE 1 GRAM/100 mL PREMIX 1 GM/100 ML BAG IV PRN ×4 (00:36→03:53)
[2018-09-25] MEDS: HumuLIN R SC PRN ×2 (06:06→11:07)
[2018-09-25 06:14] LABS: SERUM ACETONE NEGATIVE (NEGATIVE)
[2018-09-25 06:17] LABS: BASOPHILS # (AUTO) 0.1 X10^3/uL (0.0-0.1); BASOPHILS % (AUTO) 2.7 % (0.2-1.0); EOSINOPHILS # (AUTO) 0.3 x10^3/uL (0.0-0.2); EOSINOPHILS % (AUTO) 7.1 % (0.9-2.9); HEMOGLOBIN 8.4 g/dL (12.0-16.0); LYMPHOCYTES # (AUTO) 1.3 X10^3/uL (1.3-2.9); LYMPHOCYTES % (AUTO) 36.1 % (21.0-51.0); MEAN CORPUSCULAR HGB CONC 33.5 g/dL (33.0-35.0); MEAN CORPUSCULAR VOLUME 92.4 fL (80.0-100.0); MEAN PLATELET VOLUME 9.5 fL (7.4-11.0); MONOCYTES # (AUTO) 0.2 x10^3/uL (0.3-0.8); NEUTROPHILS # (AUTO) 1.8 x10^3/uL (2.2-4.8); NEUTROPHILS % (AUTO) 48.1 % (42.0-75.0); PLATELET COUNT 167 X10^3/uL (150.0-450.0); RED BLOOD COUNT 2.71 X10^6/uL (3.5-5.4); RED CELL DISTRIBUTION WIDTH 14.2 % (11.6-16.5); WHITE BLOOD COUNT 3.7 X10^3/uL (3.6-10.0)
[2018-09-25 06:26] LABS: ALANINE AMINOTRANSFERASE 22 Units/L (12-78); ALKALINE PHOSPHATASE 81 Units/L (46-116); ASPARTATE AMINO TRANSFERASE 18 Units/L (15-37); BLOOD UREA NITROGEN 16 mg/dL (7-18); CALCIUM 8.2 mg/dL (8.5-10.1); CARBON DIOXIDE 19.9 mmol/L (21-32); CHLORIDE 110 mmol/L (98-107); COR NA(FOR HYPERGLY) 146 mmol/L (136-145); CREATININE 1.87 mg/dL (0.55-1.02); SODIUM 143 mmol/L (136-145); TOTAL PROTEIN 6.4 g/dL (6.4-8.2); eGFR NON BLACK RACES 32 (>60)
[2018-09-25] MEDS: ZESTRIL TAB 10 MG PO SCH (08:35)
[2018-09-25] MEDS: CATAPRES TAB 0.1 MG PO SCH (08:35)
[2018-09-25] MEDS: NS 1000 ML 1,000 ML IV SCH ×3 (08:39→17:56)
[2018-09-25] MEDS: LYRICA CAP 50 MG PO SCH ×2 (08:39→20:21)
[2018-09-25] MEDS ORDERED: HALDOL INJ IVP ONE (12:54)
[2018-09-25] MEDS: CELEXA PO SCH (13:12)
[2018-09-26] MEDS: NS 1000 ML 1,000 ML IV SCH ×2 (01:52→10:00)
[2018-09-26 05:51] LABS: BASOPHILS # (AUTO) 0.1 X10^3/uL (0.0-0.1); BASOPHILS % (AUTO) 2.3 % (0.2-1.0); EOSINOPHILS # (AUTO) 0.3 x10^3/uL (0.0-0.2); HEMATOCRIT 25.7 % (36.0-47.0); HEMOGLOBIN 8.4 g/dL (12.0-16.0); LYMPHOCYTES # (AUTO) 1.4 X10^3/uL (1.3-2.9); LYMPHOCYTES % (AUTO) 38.6 % (21.0-51.0); MEAN CORPUSCULAR HEMOGLOBIN 30.6 pg (27.0-34.0); MEAN CORPUSCULAR HGB CONC 32.8 g/dL (33.0-35.0); MEAN CORPUSCULAR VOLUME 93.3 fL (80.0-100.0); MEAN PLATELET VOLUME 8.9 fL (7.4-11.0); MONOCYTES # (AUTO) 0.2 x10^3/uL (0.3-0.8); MONOCYTES % (AUTO) 6.2 % (0.0-13.0); NEUTROPHILS # (AUTO) 1.7 x10^3/uL (2.2-4.8); NEUTROPHILS % (AUTO) 45.9 % (42.0-75.0); PLATELET COUNT 153 X10^3/uL (150.0-450.0); RED BLOOD COUNT 2.76 X10^6/uL (3.5-5.4); RED CELL DISTRIBUTION WIDTH 13.9 % (11.6-16.5); WHITE BLOOD COUNT 3.6 X10^3/uL (3.6-10.0)
[2018-09-26 06:03] LABS: SERUM ACETONE NEGATIVE (NEGATIVE)
[2018-09-26 06:16] LABS: ALANINE AMINOTRANSFERASE 23 Units/L (12-78); ALKALINE PHOSPHATASE 78 Units/L (46-116); ASPARTATE AMINO TRANSFERASE 15 Units/L (15-37); BLOOD UREA NITROGEN 14 mg/dL (7-18); CALCIUM 8.3 mg/dL (8.5-10.1); CHLORIDE 111 mmol/L (98-107); COR CA(FOR HYPOALB) 9.1 mg/dL (8.5-10.1); COR NA(FOR HYPERGLY) 145 mmol/L (136-145); CREATININE 1.71 mg/dL (0.55-1.02); SODIUM 144 mmol/L (136-145); TOTAL PROTEIN 6.6 g/dL (6.4-8.2); eGFR NON BLACK RACES 35 (>60)
[2018-09-26] MEDS: NORCO 10/325 TAB PO PRN (07:30)
[2018-09-26] MEDS: CATAPRES TAB 0.1 MG PO SCH (08:39)
[2018-09-26] MEDS: ZESTRIL TAB 10 MG PO SCH (08:40)
[2018-09-26] MEDS: LYRICA CAP 50 MG PO SCH (08:40)
[2018-09-26] MEDS: CELEXA PO SCH (08:40)
[2018-09-26 11:52] VITALS: BP 140/79
[2018-09-26] MEDS ORDERED: MILK OF MAGNESIA PO SCH (21:00)
[2018-09-26] MEDS ORDERED: COLACE CAP 100 MG PO SCH (21:00)
== END 2018-09-26 12:36 ==
LOC: ER 15:27 → ICU 15:27
PROVIDERS: ADMIT Internal Medicine; ATTEND Internal Medicine
DX: R29.6 Repeated falls; R44.2 Other hallucinations; R26.89 Other abnormalities of gait and mobility; N18.4 Chronic kidney disease, stage 4 (severe); F32.89 Other specified depressive episodes; E10.65 Type 1 diabetes mellitus with hyperglycemia; E86.0 Dehydration; H44.521 Atrophy of globe, right eye; R41.82 Altered mental status, unspecified; I12.9 Hypertensive chronic kidney disease with stage 1 through stage 4 chronic kidney disease, or unspecified chronic kidney disease; K21.9 Gastro-esophageal reflux disease without esophagitis; Z79.4 Long term (current) use of insulin; J32.0 Chronic maxillary sinusitis; J32.2 Chronic ethmoidal sinusitis; R94.31 Abnormal electrocardiogram [ECG] [EKG]
CPT/HCPCS: 36415; 36600; 70450; 72125; 73030; 80053; 80307; 81001; 82009; 82140; 82803; 83735; 85025; 93005; 96365; 96367; 96372; 96374; 97110; 97112; 97163; 97166; 97530; 97535; 99284; A4222; G0378; G0434; J1630; J1815; J2550; J3475; J7030

== ENCOUNTER 2019-01-03 07:05 | Inpatient (IN) ==
[2019-01-03] MEDS ORDERED: NS 1000 ML 1,000 ML ONE ×2 (07:19→08:26)
[2019-01-03] MEDS ORDERED: ATIVAN INJ 2 MG VIAL ONE (07:20)
[2019-01-03] MEDS ORDERED: NS 1000 ML 1,000 ML IV ONE ×2 (07:20→08:56)
[2019-01-03] MEDS ORDERED: NS 100 ML IV 0 ML ONE (07:34)
[2019-01-03] MEDS ORDERED: CEREBYX INJ ONE (07:35)
[2019-01-03] MEDS: CEREBYX IV SCH (07:40)
[2019-01-03] MEDS: NS IV SCH (07:40)
[2019-01-03] MEDS ORDERED: ATIVAN INJ 2 MG VIAL IVP ONE (07:44)
[2019-01-03 07:49] LABS: BILIRUBIN,URINE NEGATIVE (NEGATIVE); BLOOD/HEMOGLOBIN,URINE 2+ (NEGATIVE); GLUCOSE, URINE 4+ (NEGATIVE); KETONES,URINE NEGATIVE (NEGATIVE); LEUKOCYTE ESTERASE ,URINE NEGATIVE (NEGATIVE); NITRITES,URINE NEGATIVE (NEGATIVE); PROTEIN,URINE 4+ (NEGATIVE); UROBILINOGEN,URINE NORMAL (NORMAL)
--- NOTE | 2019-01-03 07:49 | DR.SEIZA ---
HPI Time Seen Time Seen by Provider: 01/03/19 07:27 Primary Care Physician Primary Care Physician: DAVID HPI Comment HPI Comment: Patient arrived via EMS with seizure activity of unknown duration. Tonic/clonic. She is known to have seizures. She was given lorazepam upon arrival IV for active seizure. Patient was also started on cerebyx (20mg/kg in fused over 30minutes at rate 150mg/min. There was no seizure activity s/p drip. Complaints Chief Complaint Doctors Comments: Seizure activity Chief Complaint:: EMS RESPONDED TO A CALL WITH PT. HAVING SEIZURE ACTIVITY. UPON ARRIVAL TO ER, PT. WITH AMS AND ELEVATED BLOOD GLUCOSE. Source History Provided: EMS Mode of Arrival Mode of Arrival: EMS Timing Onset of Chief Complaint: 01/03/19 Duration Since Onset: Since Onset Location Location: Generalized Context Prior to Seizure:: Normal Associated Signs and Symptoms Associated Signs and Symptoms:: None PMH PMH Past Medical History: Yes Past Medical History: Anxiety, Arthritis, Cirrhosis, CHF, Diabetes, Migraines, GERD, Headaches, Hypertension and Renal Disease Past Surgical History: Yes Surgical History: , CABG/Valve Surgery, Cholecystectomy, Ortho Surgery and Other Past Surgical History Comment: RIGHT BELOW THE KNEE AMPUTEE Family History History of Family Medical Conditions: Yes Family Medical History: Diabetes Mellitus, Cancer, [place], Sudden Cardiac and Hypertension Social History Does patient currently use any type of tobacco product: No Have you used tobacco products in the last 12 months: No Type of Tobacco Use: None Does any household member use tobacco: No Alcohol Use: None Do you use any recreational Drugs:: No Lives With: Family Lives Where: Home infectious screening In the last 2 months have you had wt loss of >10#?: NO Have you had fever, night sweats or hemotysis?: No Have you traveled outside the country in the last 6 months?: No Isolation: Standard ROS Review of Systems Constitutional: No Symptoms Reported ENTM: No Symptoms Reported Respiratoy: No Symptoms Reported Cardiovascular: No Symptoms Reported Gastrointestinal/Abdominal: No Symptoms Reported Neurological: No Symptoms Reported Musculoskeletal: No Symptoms Reported and See HPI Integumentary: No Symptoms Reported Hematologic/Lymphatic: No Symptoms Reported Endocrine: No Symptoms Reported Psychiatric: No Symptoms Reported All Other Systems: Reviewed and Negative PE Vital Signs Vitals: Temperature 100.3 F Pulse Rate [Apical] 67 Pulse Rate 82 Respiratory Rate 18 Blood Pressure [Left Calf] 132/93 Blood Pressure [Left Arm] 202/86 Blood Pressure [Right Arm] 149/70 Blood Pressure 130/73 O2 Sat by Pulse Oximetry 99 General Limitations: No Limitations General Appearance: In No Apparent Distress and Other (Post ictal) Head Head Exam: Normal Inspection, Atraumatic and Normocephalic Eyes Eye exam: Normal Appearance and EOMI Eyelids: Normal Inspection: Bilateral Pupils: Regular, Round: Bilateral Sclera/Conjunctival: Normal Inspection: Bilateral Anterior Chamber: Normal Inspection: Bilateral ENT ENT Exam: Normal Exam Mouth Exam: Normal Inspection Neck Neck Exam: Normal Inspection and Full ROM Chest Chest Inspection: Normal Inspection and Symmetric Chest Wall Rise Respiratory Respiratory Exam: Normal Lung Sounds Bilat Respiratory Exam: Bilateral: Clear to Auscultation Cardiovascular Cardiovascular Exam: Regular Rate Abdominal Exam Abdominal Exam: Normal Inspection and Distention Extremities Extremities Exam: Normal Inspection (partial amputee left extremity) Back Back Exam: Normal Inspection Neurologic Neurological Exam: Alert (comatose) Skin Skin Exam: Warm, Dry and Intact COURSE Treatment Treatment: Cerebyx drip, ROR Labs Reviewed Laboratory Results Reviewed?: Yes Result Diagrams: 01/04/19 04:07 01/04/19 04:07 Laboratory: 01/03/19 19:17 Blood Blood Culture - Preliminary 01/03/19 19:10 Blood Blood Culture - Preliminary 01/03/19 10:35 Blood Blood Culture - Preliminary 01/03/19 07:30 Blood Blood Culture - Preliminary 01/03/19 07:23 Urine,Catheterized Urine Culture - Final Escherichia Coli WBC 8.8 X10^3/uL (3.6-10.0) 01/04/19 04:07 RBC 3.66 X10^6/uL (3.5-5.4) 01/04/19 04:07 Hgb 11.2 g/dL (12.0-16.0) L 01/04/19 04:07 Hct 32.3 % (36.0-47.0) L 01/04/19 04:07 MCV 88.4 fL (80.0-100.0) 01/04/19 04:07 MCH 30.7 pg (27.0-34.0) 01/04/19 04:07 MCHC 34.8 g/dL (33.0-35.0) 01/04/19 04:07 RDW 14.2 % (11.6-16.5) 01/04/19 04:07 Plt Count 244 X10^3/uL (150.0-450.0) 01/04/19 04:07 MPV 8.7 fL (7.4-11.0) 01/04/19 04:07 Neut % (Auto) 75.5 % (42.0-75.0) H 01/04/19 04:07 Lymph % (Auto) 15.9 % (21.0-51.0) L 01/04/19 04:07 [place] % (Auto) 7.5 % (0.0-13.0) 01/04/19 04:07 Eos % (Auto) 0.1 % (0.9-2.9) L 01/04/19 04:07 Baso % (Auto) 1.0 % (0.2-1.0) 01/04/19 04:07 Neut # (Auto) 6.7 x10^3/uL (2.2-4.8) H 01/04/19 04:07 Lymph # (Auto) 1.4 X10^3/uL (1.3-2.9) 01/04/19 04:07 [place] # (Auto) 0.7 x10^3/uL (0.3-0.8) 01/04/19 04:07 Eos # (Auto) 0.0 x10^3/uL (0.0-0.2) 01/04/19 04:07 Baso # (Auto) 0.1 X10^3/uL (0.0-0.1) 01/04/19 04:07 Absolute Nucleated RBC 0.0 /100WBC 01/04/19 04:07 INR Target Range - 01/04/19 04:07 INR 1.21 (0.8-1.3) 01/04/19 04:07 APTT 26.8 SECONDS (22.9-36.5) 01/04/19 04:07 PTT Comment - 01/04/19 04:07 Sample Site Rr 01/04/19 08:50 ABG pH 7.440 (7.35-7.45) 01/04/19 08:50 ABG pCO2 29.0 mmHg (35.0-45.0) L 01/04/19 08:50 ABG pO2 78.0 mmHg (80.0-100.0) L 01/04/19 08:50 ABG HCO3 19.7 mmol/L (22-26) L 01/04/19 08:50 ABG O2 Saturation 96.0 % (90-100) 01/04/19 08:50 ABG Base Excess -3.4 mmol/L (-2.0-2.0) L 01/04/19 08:50 Nathan Test Pos 01/04/19 08:50 A-a Gradient 35.0 mmHg 01/04/19 08:50 FiO2 21.0 01/04/19 08:50 Blood Gas Comments Jona well cb 01/04/19 08:50 Sodium 138 mmol/L (136-145) 01/04/19 04:07 Corrected Sodium 139 mmol/L (136-145) 01/04/19 04:07 Potassium 3.8 mmol/L (3.5-5.1) 01/04/19 04:07 Chloride 106 mmol/L (98-107) 01/04/19 04:07 Carbon Dioxide 21.2 mmol/L (21-32) 01/04/19 04:07 BUN 29 mg/dL (7-18) H 01/04/19 04:07 Creatinine 2.46 mg/dL (0.55-1.02) H 01/04/19 04:07 Est GFR (MDRD) Af Amer 28 (>60) L 01/04/19 04:07 Est GFR (MDRD) Non-Af 23 (>60) L 01/04/19 04:07 Glucose 151 mg/dL (65-99) H 01/04/19 04:07 POC Glucose (mg/dL) 143 mg/dL (65-99) H 01/04/19 16:18 Lactic Acid 1.2 mmol/L (0.4-2.0) 01/04/19 04:07 Calcium 8.2 mg/dL (8.5-10.1) L 01/04/19 04:07 Corrected Calcium 9.4 mg/dL (8.5-10.1) 01/04/19 04:07 Magnesium 1.5 mg/dL (1.7-2.9) L 01/04/19 04:07 Total Bilirubin 0.40 mg/dL (0.2-1.0) 01/04/19 04:07 AST 8 Units/L (15-37) L 01/04/19 04:07 ALT 12 Units/L (12-78) 01/04/19 04:07 Alkaline Phosphatase 102 Units/L (46-116) 01/04/19 04:07 Creatine Kinase 42 Units/L (26-192) 01/03/19 07:30 CK-MB (CK-2) 1.5 ng/mL (0-4.0) 01/03/19 07:30 CK/CKMB % Calc 3.6 % (<4) 01/03/19 07:30 Troponin I < 0.02 ng/mL (0-1.5) 01/03/19 07:30 Total Protein 6.4 g/dL (6.4-8.2) 01/04/19 04:07 Albumin 2.5 g/dL (3.4-5.0) L 01/04/19 04:07 Globulin 3.9 g/dL (2.5-4.5) 01/04/19 04:07 Albumin/Globulin Ratio 0.6 Ratio (1.1-2.1) L 01/04/19 04:07 Specimen Type Catherized urine 01/03/19 07:23 Urine Color Yellow (YELLOW) 01/03/19 07:23 Urine Appearance Cloudy (CLEAR) 01/03/19 07:23 Urine pH 5.0 (5.0 - 8.0) 01/03/19 07:23 Ur Specific [place] 1.015 (1.000-1.030) 01/03/19 07:23 Urine Protein 4+ (NEGATIVE) 01/03/19 07:23 Urine Glucose (UA) 4+ (NEGATIVE) 01/03/19 07:23 Urine Ketones Negative (NEGATIVE) 01/03/19 07:23 Urine Occult Blood 2+ (NEGATIVE) 01/03/19 07:23 Urine Nitrite Negative (NEGATIVE) 01/03/19 07:23 Urine Bilirubin Negative (NEGATIVE) 01/03/19 07:23 Urine Urobilinogen Normal (NORMAL) 01/03/19 07:23 Ur Leukocyte Esterase Negative (NEGATIVE) 01/03/19 07:23 Urine RBC 0-2 /HPF (NONE SEEN) 01/03/19 07:23 Urine WBC 5-10 /HPF (NONE SEEN) 01/03/19 07:23 Ur Squamous Epith Cells Few /HPF (NEGATIVE) 01/03/19 07:23 Amorphous Sediment 3+ /HPF (NEGATIVE) 01/03/19 07:23 Urine Bacteria Trace /HPF (NEGATIVE) 01/03/19 07:23 Ur Culture Indicated? Yes/culture set up 01/03/19 07:23 Phenytoin 6.8 ug/mL (10-20) L 01/04/19 04:07 Acetone, Semi-Quant Negative (NEGATIVE) 01/04/19 04:07 Opioid Opioid Risk Tool Total: 0 Total Score Risk Category: Low Risk Copyright: Keenan HERNÁNDEZ predicting aberrant behaviors ADDITIONAL NOTES Additional Notes Additional Notes: Patient care was assumed by oncoming physician Dr. Evans
[2019-01-03 07:54] LABS: APPEARANCE,URINE CLOUDY (CLEAR); COLOR,URINE YELLOW (YELLOW)
[2019-01-03 08:02] LABS: AMORPHOUS SEDIMENT,UR 3+ /HPF (NEGATIVE); BACTERIA,URINE TRACE /HPF (NEGATIVE); RBC,URINE 0-2 /HPF (NONE SEEN); SQUAMOUS EPITHELIAL CELL,UR FEW /HPF (NEGATIVE)
[2019-01-03 08:10] LABS: BASOPHILS # (AUTO) 0.1 X10^3/uL (0.0-0.1); BASOPHILS % (AUTO) 1.4 % (0.2-1.0); EOSINOPHILS # (AUTO) 0.3 x10^3/uL (0.0-0.2); EOSINOPHILS % (AUTO) 4.6 % (0.9-2.9); HEMATOCRIT 36.9 % (36.0-47.0); HEMOGLOBIN 12.3 g/dL (12.0-16.0); LYMPHOCYTES % (AUTO) 27.1 % (21.0-51.0); MEAN CORPUSCULAR HEMOGLOBIN 30.8 pg (27.0-34.0); MEAN CORPUSCULAR HGB CONC 33.2 g/dL (33.0-35.0); MEAN CORPUSCULAR VOLUME 92.9 fL (80.0-100.0); MEAN PLATELET VOLUME 9.2 fL (7.4-11.0); MONOCYTES # (AUTO) 0.5 x10^3/uL (0.3-0.8); MONOCYTES % (AUTO) 6.4 % (0.0-13.0); NEUTROPHILS # (AUTO) 4.5 x10^3/uL (2.2-4.8); NEUTROPHILS % (AUTO) 60.5 % (42.0-75.0); PLATELET COUNT 309 X10^3/uL (150.0-450.0); RED BLOOD COUNT 3.97 X10^6/uL (3.5-5.4); RED CELL DISTRIBUTION WIDTH 13.9 % (11.6-16.5); WHITE BLOOD COUNT 7.4 X10^3/uL (3.6-10.0)
[2019-01-03 08:16] LABS: CALCIUM 8.7 mg/dL (8.5-10.1); CARBON DIOXIDE 18.3 mmol/L (21-32); CREATININE 2.69 mg/dL (0.55-1.02)
[2019-01-03 08:18] LABS: ALBUMIN 2.8 g/dL (3.4-5.0); COR CA(FOR HYPOALB) 9.7 mg/dL (8.5-10.1); TOTAL PROTEIN 7.2 g/dL (6.4-8.2)
[2019-01-03] MEDS ORDERED: HumuLIN R ONE (08:26)
[2019-01-03] MEDS ORDERED: NS 100 ML IV 100 ML ONE (08:26)
[2019-01-03 08:28] LABS: ABG BASE EXCESS -12.1 mmol/L (-2.0-2.0)
[2019-01-03 08:30] LABS: ABG ALLEN TEST POS
[2019-01-03] MEDS ORDERED: ATIVAN INJ 2 MG VIAL IVP PRN (08:40)
[2019-01-03] MEDS ORDERED: VANCOMYCIN HCL 1 GM VIAL ONE (08:47)
[2019-01-03] MEDS ORDERED: NS 250 ML IV 250 ML ONE (08:48)
[2019-01-03] MEDS ORDERED: VANCOMYCIN HCL 1 GM VIAL 1 G in D5W 250 ML IV 250 ML IV SCH (09:00)
[2019-01-03 09:21] LABS: CKMB % 3.6 % (<4); CREATINE KINASE 42 Units/L (26-192); CREATINE KINASE MB 1.5 ng/mL (0-4.0); MAGNESIUM 1.8 mg/dL (1.7-2.9); TROPONIN I < 0.02 ng/mL (0-1.5)
--- NOTE | 2019-01-03 10:29 | RAD ---
Examination: KUB History: Nausea and vomiting Comparison reference 12/31/2018 Findings: There is moderate gaseous distention of stomach and colon. There is little or no significant small bowel dilatation. No definite mass or ascites is seen although radiographic detail is limited on these images. There are surgical clips in the right upper quadrant. Impression: Mild colon distention probably nonobstructing. Follow-up with standard abdomen series recommended if symptoms persist. Reported By:
[2019-01-03] MEDS ORDERED: NS 500 ML IV 500 ML ONE (10:52)
[2019-01-03 10:56] LABS: CALCIUM 8.3 mg/dL (8.5-10.1); CARBON DIOXIDE 16.8 mmol/L (21-32); CREATININE 2.49 mg/dL (0.55-1.02)
--- NOTE | 2019-01-03 11:27 | DR.H&P ---
H&P - History & Physical for Day of: H&P Date: 01/03/19 - Chief Complaint Chief Complaint: Patient arrived via EMS with seizure activity of unknown duration. Tonic/clonic. - History of Present Illness History of Present Illness: 38 WF ER ADMISSION AFTER Patient arrived via EMS with seizure activity of unknown duration. Tonic/clonic. She is known to have seizures. She was given lorazepam upon arrival IV for active seizure. Patient was also started on cerebyx (20mg/kg infused over 30minutes at rate 150mg/min. There was no seizure activity s/p drip. PT HAS PMH OF UNCONTROLLED TYPE 1 DM, RENAL FAILURE, CAD, CHF, OA, LOWER EXTREMITY AMPUTATION. NA 126, BUN32,C REAT 2.69 GLUCOSE 760. PT ADMITTED TO ICU ON INSULIN DRIP FOR DKA, ELECTROLYTE REPLACEMENT, SEIZURE PRECAUTIONS - Past Medical History Past Medical History: Hypertension, Diabetes, Renal Disease, Cirrhosis, Anxiety, GERD, Arthritis, Migraines, Headaches, CHF - Past Surgical History Surgical History: CABG/Valve Surgery, Cholecystectomy, , Ortho Surgery, Other - Family History Family Medical History: Diabetes Mellitus, Cancer, [place], Sudden Cardiac , Hypertension - Social History Does patient currently use any type of tobacco product: No Have you used tobacco products in the last 12 months: No Type of Tobacco Use: None Does any household member use tobacco: No Alcohol Use: None - Medications Home Medications: No Known Drug Allergies Allergy (Verified 01/03/19 07:24) - Review of Systems Constitutional: Weakness Eyes: Vision Change ENT: No Symptoms Reported Respiratory: No Symptoms Reported Cardiovascular: Edema Gastrointestinal: No Symptoms Reported Genitourinary: Incontinence Musculoskeletal: No Symptoms Reported Skin: No Symptoms Reported Neurological: Seizures, Other (AMS) - Physical Exam Vital Signs: Temperature 98.5 F Pulse Rate [Apical] 67 Pulse Rate 67 Respiratory Rate 15 Blood Pressure [Left Calf] 132/93 Blood Pressure [Left Arm] 202/86 Blood Pressure [Right Arm] 149/70 Blood Pressure 183/90 O2 Sat by Pulse Oximetry 99 Oriented: Unable to test Eyes: Blurred Vision (CHRONIC) Ear: Normal Nose: Normal Throat: Normal Respiratory: RLL Diminished, LLL Diminished Cardiovascular: Tachycardia : Normal Auscultation: Bowel Sounds: Normal Palpation: Normal Tenderness: Other (MILD DIFFUSE DISTENTION) Musculoskeletal: Back:Lumbar, Deformity (RLE AMPUTATION) Psychiatric: Depression Speech Pattern: Aphasic (SNORING, GIVEN ATIVAN IN ER) - Assessment/Plan (1) DKA (diabetic ketoacidoses) Status: Acute Plan: ADMIT, ICU. SERUM ACETONE, INSULING DRIP PER PROTOCOL. IV HYDRATION, CONTINUOUS CARDIAC MONITORING, BP CONTROL. SEIZURE PRECAUTIONS, LIZARRAGA CATH. KUB, STRICT I & OS, SUPPLEMENTAL O2, CEREBYX GIVEN IN ER (2) Metabolic acidosis Status: Acute (3) Altered mental status Status: Acute (4) Acute renal failure Qualifiers: Acute renal failure type: with acute tubular necrosis Qualified Code(s): N17.0 - Acute kidney failure with tubular necrosis Status: Acute (5) History of coronary artery disease Status: Chronic - Allergies Allergies/Adverse Reactions: Allergies Allergy/AdvReac Type Severity Reaction Status Date / Time No Known Drug Allergies Allergy Verified 01/03/19 07:24
[2019-01-03] MEDS: ZOSYN VIAL 3.375 GRAMS 3.375 G in NS 100 ML IV + SPIKE MINIBAG* 100 ML IV SCH ×2 (12:30→20:59)
[2019-01-03] MEDS ORDERED: ZOSYN VIAL 3.375 GRAMS IV SCH (14:00)
[2019-01-03 16:14] LABS: ABG HCO3 18.2 mmol/L (22-26)
[2019-01-03 16:15] LABS: ABG ALLEN TEST POS
[2019-01-03 16:25] LABS: CALCIUM 8.9 mg/dL (8.5-10.1); CARBON DIOXIDE 19.3 mmol/L (21-32); CREATININE 2.34 mg/dL (0.55-1.02)
[2019-01-03 17:21] VITALS: BMI 34.7
[2019-01-03] MEDS ORDERED: TYLENOL SUPP 650 MG ONE (18:48)
[2019-01-03] MEDS: TYLENOL SUPP 650 MG PR PRN ×2 (19:11→23:20)
[2019-01-03 19:37] LABS: CALCIUM 8.9 mg/dL (8.5-10.1); CARBON DIOXIDE 18.4 mmol/L (21-32); CREATININE 2.4 mg/dL (0.55-1.02)
--- NOTE | 2019-01-03 19:47 | RAD ---
HISTORY: Fever Study: Chest AP portable Comparison: 11/28/2018 Findings: The patient is status post median sternotomy and CABG. The heart is enlarged. No congestive heart failure is noted. No acute alveolar infiltrates or pleural effusions are identified. The bony thorax is unremarkable. IMPRESSION: Moderate cardiomegaly without congestive heart failure Lungs clear Reported By:
[2019-01-03] MEDS ORDERED: ROCEPHIN VIAL 2 GRAMS IVP ONE (19:58)
[2019-01-03] MEDS ORDERED: SNACK - Diabetic Appropriate PO SCH (20:00)
[2019-01-03] MEDS ORDERED: CATAPRES TAB 0.1 MG GT PRN (20:01)
[2019-01-03] MEDS ORDERED: APRESOLINE INJ 20 MG VIAL IVP PRN (20:03)
[2019-01-03] MEDS ORDERED: NS 50 ML IV 50 ML ONE (20:50)
[2019-01-03] MEDS: NS 1000 ML 1,000 ML IV SCH (20:58)
[2019-01-03] MEDS ORDERED: ROCEPHIN VIAL 1 GRAM IVP SCH (21:00)
[2019-01-03 23:31] LABS: CALCIUM 8.3 mg/dL (8.5-10.1); CARBON DIOXIDE 20.7 mmol/L (21-32); CREATININE 2.45 mg/dL (0.55-1.02)
[2019-01-04 00:12] LABS: ABG HCO3 17.7 mmol/L (22-26)
[2019-01-04] MEDS ORDERED: SODIUM BICARBONATE 8.4% INJ ADULT IVP ONE (02:12)
[2019-01-04] MEDS ORDERED: SODIUM BICARBONATE 8.4% INJ ADULT ONE (02:16)
[2019-01-04] MEDS: TYLENOL SUPP 650 MG PR PRN ×3 (03:05→17:16)
[2019-01-04 04:28] LABS: BASOPHILS # (AUTO) 0.1 X10^3/uL (0.0-0.1); EOSINOPHILS % (AUTO) 0.1 % (0.9-2.9); HEMATOCRIT 32.3 % (36.0-47.0); HEMOGLOBIN 11.2 g/dL (12.0-16.0); LYMPHOCYTES # (AUTO) 1.4 X10^3/uL (1.3-2.9); LYMPHOCYTES % (AUTO) 15.9 % (21.0-51.0); MEAN CORPUSCULAR HEMOGLOBIN 30.7 pg (27.0-34.0); MEAN CORPUSCULAR HGB CONC 34.8 g/dL (33.0-35.0); MEAN CORPUSCULAR VOLUME 88.4 fL (80.0-100.0); MEAN PLATELET VOLUME 8.7 fL (7.4-11.0); MONOCYTES # (AUTO) 0.7 x10^3/uL (0.3-0.8); MONOCYTES % (AUTO) 7.5 % (0.0-13.0); NEUTROPHILS # (AUTO) 6.7 x10^3/uL (2.2-4.8); NEUTROPHILS % (AUTO) 75.5 % (42.0-75.0); PLATELET COUNT 244 X10^3/uL (150.0-450.0); RED BLOOD COUNT 3.66 X10^6/uL (3.5-5.4); RED CELL DISTRIBUTION WIDTH 14.2 % (11.6-16.5); WHITE BLOOD COUNT 8.8 X10^3/uL (3.6-10.0)
[2019-01-04 04:32] LABS: ALBUMIN 2.5 g/dL (3.4-5.0); CALCIUM 8.2 mg/dL (8.5-10.1); CARBON DIOXIDE 21.2 mmol/L (21-32); COR CA(FOR HYPOALB) 9.4 mg/dL (8.5-10.1); CREATININE 2.46 mg/dL (0.55-1.02); MAGNESIUM 1.5 mg/dL (1.7-2.9); TOTAL PROTEIN 6.4 g/dL (6.4-8.2)
[2019-01-04 04:33] LABS: LACTIC ACID 1.2 mmol/L (0.4-2.0)
[2019-01-04] MEDS ORDERED: MAGNESIUM SULFATE 1 GRAM/100 mL PREMIX 1 G/100 ML BAG IV ONE ×2 (05:11→06:43)
[2019-01-04] MEDS: MAGNESIUM SULFATE 1 GRAM/100 mL PREMIX 1 GM/100 ML BAG IV PRN ×2 (05:17→06:47)
--- NOTE | 2019-01-04 05:41 | RAD ---
Chest radiograph, single view. History: Aspiration. Comparison: 01/03/2019. Findings: The lung volumes are diminished. There is bronchovascular crowding. Postoperative changes of CABG. No new consolidation is identified. No evidence of pneumothorax or sizable pleural effusion. Enteric catheter is stable. Conclusion: Stable examination. Reported By:
[2019-01-04] MEDS: NS 1000 ML 1,000 ML IV SCH ×2 (06:48→12:11)
[2019-01-04] MEDS: NS IV SCH (08:17)
[2019-01-04] MEDS: CEREBYX IV SCH (08:17)
[2019-01-04] MEDS ORDERED: VANCOMYCIN HCL 1 GM VIAL 1 G in NS 250 ML IV 250 ML IV SCH (09:00)
[2019-01-04 09:02] LABS: ABG ALLEN TEST POS; ABG BASE EXCESS -3.4 mmol/L (-2.0-2.0); ABG HCO3 19.7 mmol/L (22-26)
[2019-01-04] MEDS ORDERED: ZOFRAN INJ 4 MG VIAL ONE (09:27)
[2019-01-04] MEDS: ZOFRAN INJ 4 MG VIAL IVP PRN ×2 (09:32→17:00)
[2019-01-04] MEDS: ZOSYN VIAL 3.375 GRAMS 3.375 G in NS 100 ML IV + SPIKE MINIBAG* 100 ML IV SCH (09:39)
[2019-01-04] MEDS ORDERED: OFIRMEV IV 1000 MG VIAL 750 MG/75 ML VIAL IV PRN (10:34)
[2019-01-04] MEDS ORDERED: OFIRMEV IV 1000 MG VIAL 1,000 MG/100 ML VIAL IV ONE (12:17)
[2019-01-04] MEDS ORDERED: NS 50 ML IV 50 ML ONE (12:51)
[2019-01-04 17:18] VITALS: BP 130/73
== END 2019-01-04 17:10 | disposition short-term general hospital (02) | DRG 637 ==
LOC: ER 07:05 → ICU 08:56
PROVIDERS: ADMIT Internal Medicine; ATTEND Internal Medicine
DX: G40.89 Other seizures; E10.10 Type 1 diabetes mellitus with ketoacidosis without coma; B96.29 Other Escherichia coli [E. coli] as the cause of diseases classified elsewhere; R94.31 Abnormal electrocardiogram [ECG] [EKG]; N39.0 Urinary tract infection, site not specified; N17.0 Acute kidney failure with tubular necrosis; I25.10 Atherosclerotic heart disease of native coronary artery without angina pectoris; K21.9 Gastro-esophageal reflux disease without esophagitis
CPT/HCPCS: 36415; 36600; 70450; 71010; 71045; 74000; 74018; 80048; 80053; 80185; 81001; 82009; 82550; 82553; 82803; 83605; 83735; 84484; 85025; 85610; 85730; 87040; 87086; 87088; 87186; 93005; 96365; 96367; 96374; 96375; 99285; A4216; A4222; S0078; J0131; J0696; J1815; J2060; J2405; J2543; J3370; J3475; J3490; J7030; J7040; J7050; J7060

== ENCOUNTER 2019-03-11 12:46 | Inpatient (IN) ==
[2019-03-11 13:40] LABS: BASOPHILS # (AUTO) 0.1 X10^3/uL (0.0-0.1); EOSINOPHILS # (AUTO) 0.2 x10^3/uL (0.0-0.2); HEMATOCRIT 33.3 % (36.0-47.0); HEMOGLOBIN 11.3 g/dL (12.0-16.0); LYMPHOCYTES # (AUTO) 1.1 X10^3/uL (1.3-2.9); LYMPHOCYTES % (AUTO) 24.7 % (21.0-51.0); MEAN CORPUSCULAR HEMOGLOBIN 30.6 pg (27.0-34.0); MEAN PLATELET VOLUME 8.5 fL (7.4-11.0); MONOCYTES # (AUTO) 0.3 x10^3/uL (0.3-0.8); MONOCYTES % (AUTO) 7.3 % (0.0-13.0); NEUTROPHILS # (AUTO) 2.8 x10^3/uL (2.2-4.8); PLATELET COUNT 233 X10^3/uL (150.0-450.0); RED CELL DISTRIBUTION WIDTH 14.6 % (11.6-16.5); WHITE BLOOD COUNT 4.6 X10^3/uL (3.6-10.0)
[2019-03-11 14:02] VITALS: BMI 38.4
[2019-03-11 14:04] LABS: BLOOD UREA NITROGEN 33 mg/dL (7-18); CALCIUM 9.3 mg/dL (8.5-10.1); CARBON DIOXIDE 27.9 mmol/L (21-32); CHLORIDE 106 mmol/L (98-107); CREATININE 2.16 mg/dL (0.55-1.02); SODIUM 141 mmol/L (136-145); TROPONIN I < 0.02 ng/mL (0-1.5); eGFR NON BLACK RACES 27 (>60)
[2019-03-11 14:07] LABS: ALANINE AMINOTRANSFERASE 19 Units/L (12-78); ALKALINE PHOSPHATASE 83 Units/L (46-116); ASPARTATE AMINO TRANSFERASE 10 Units/L (15-37); CKMB % 2.7 % (<4); COR CA(FOR HYPOALB) 10.1 mg/dL (8.5-10.1); CREATINE KINASE 68 Units/L (26-192); CREATINE KINASE MB 1.8 ng/mL (0-4.0); TOTAL PROTEIN 7.3 g/dL (6.4-8.2)
[2019-03-11] MEDS: NORCO 10/325 TAB PO PRN ×2 (14:07→20:28)
[2019-03-11] MEDS: NS 1000 ML 1,000 ML IV SCH (14:07)
[2019-03-11] MEDS: ROCEPHIN VIAL 1 GRAM IVP SCH (14:08)
[2019-03-11] MEDS: APRESOLINE INJ 20 MG VIAL IVP PRN (14:08)
--- NOTE | 2019-03-11 15:53 | DR.H&P ---
H&P - History & Physical for Day of: H&P Date: 03/11/19 - Chief Complaint Chief Complaint: ELEVATED BP, MOTA, NAUSEA AND UTI - History of Present Illness History of Present Illness: 38 WF DIRECT ADMIT FROM DR DE LOS SANTOS OFFICE WITH CO MOTA AND ELEVATED BP. PT STATES SHE WAS SEEN IN ER LAST WEEK AND DIAGNOSED WITH UTI, STARTED CIPRO AT THAT TIME. PT CONTINUES TO CO DYSURIA. PT STATES INCREASED BLOOD SUGAR. PT HAS PMH OF DM, HTN, RENAL FAILURE, CAD, CHF. PT ADMITTED FOR TREATMENT OF ACUTE HYPERTENSION URGENCY AND UTI FAILED OUTPT TREATMENT. - Past Medical History Past Medical History: Hypertension, Diabetes, Renal Disease, Cirrhosis, Anxiety, GERD, Arthritis, Migraines, Headaches, CHF - Past Surgical History Surgical History: CABG/Valve Surgery, Cholecystectomy, , Ortho Surgery, Other - Family History Family Medical History: Diabetes Mellitus, Cancer, [place], Sudden Cardiac , Hypertension - Social History Does patient currently use any type of tobacco product: No Have you used tobacco products in the last 12 months: No Type of Tobacco Use: None Does any household member use tobacco: No Alcohol Use: None Drug Use: None - Medications Home Medications: No Known Drug Allergies Allergy (Verified 02/27/19 10:49) CONTINUE taking the following medications aspirin 325 mg PO DAILY 03/11/19 [History] furosemide 40 mg PO DAILY 03/11/19 [History] gabapentin 600 mg PO TID 03/11/19 [History] insulin detemir U-100 [Levemir U-100 Insulin] 5 units SUBCUT DAILY 03/11/19 [History] metoclopramide HCl 10 mg PO ACHS 03/11/19 [History] metoprolol tartrate 50 mg PO BID 03/11/19 [History] pantoprazole 40 mg PO DAILY 03/11/19 [History] pregabalin 50 mg PO BID 03/11/19 [History] topiramate 50 mg PO BID 03/11/19 [History] venlafaxine 75 mg PO DAILY 03/11/19 [History] - Review of Systems Constitutional: Weakness Eyes: No Symptoms Reported ENT: No Symptoms Reported Respiratory: No Symptoms Reported Cardiovascular: Edema Gastrointestinal: Nausea, Vomiting Genitourinary: Dysuria, Frequency, Incontinence Musculoskeletal: Back Pain, Leg Pain Skin: No Symptoms Reported Neurological: Other (DIZZINESS) - Physical Exam Vital Signs: Temperature 98.0 F Pulse Rate 78 Respiratory Rate 15 Blood Pressure [Left Calf] 132/93 Blood Pressure [Left Arm] 169/83 Blood Pressure [Right Arm] 149/70 Blood Pressure 213/100 O2 Sat by Pulse Oximetry 100 Eyes: Blurred Vision (CHRONIC) Ear: Normal Nose: Normal Respiratory: RLL Diminished, LLL Diminished Cardiovascular: Normal, Edema : Normal Auscultation: Bowel Sounds: Normal Palpation: Normal Tenderness: Normal Skin: Decreased Turgur Musculoskeletal: Right, Leg, Back:Lumbar, Deformity Psychiatric: Anxiety Affect: Anxious Speech Pattern: Clear, Appropriate - Assessment/Plan (1) Hypertensive urgency Status: Acute Plan: ADMIT, CXR ON ADMISSION. EKG ON ADMISSION WITH CE. BP CONTROL, IV HYDRALAZINE, BLOOD CULTURES. URINE CULTURE, IV ROCEPHIN. BS CONTROL, SSI (2) CKD (chronic kidney disease) stage 3, GFR 30-59 ml/min Status: Acute (3) Uncontrolled diabetes mellitus Qualifiers: Diabetes mellitus type: type 2 Glycemic state: with hyperglycemia Qualified Code(s): E11.65 - Type 2 diabetes mellitus with hyperglycemia Status: Acute (4) UTI (urinary tract infection) Qualifiers: Urinary tract infection type: site unspecified Hematuria presence: with hematuria Qualified Code(s): N39.0 - Urinary tract infection, site not specified; R31.9 - Hematuria, unspecified Status: Acute (5) CAD (coronary artery disease) Status: Chronic (6) GERD (gastroesophageal reflux disease) Status: Chronic - Allergies Allergies/Adverse Reactions: Allergies Allergy/AdvReac Type Severity Reaction Status Date / Time No Known Drug Allergies Allergy Verified 02/27/19 10:49
[2019-03-11] MEDS ORDERED: MORPHINE SULFATE INJ 2 MG INJ ONE (16:18)
[2019-03-11] MEDS: MORPHINE SULFATE INJ 2 MG INJ IVP PRN ×2 (16:20→22:57)
[2019-03-11 19:27] LABS: BILIRUBIN,URINE NEGATIVE (NEGATIVE); BLOOD/HEMOGLOBIN,URINE 2+ (NEGATIVE); GLUCOSE, URINE 2+ (NEGATIVE); KETONES,URINE NEGATIVE (NEGATIVE); LEUKOCYTE ESTERASE ,URINE NEGATIVE (NEGATIVE); NITRITES,URINE NEGATIVE (NEGATIVE); PROTEIN,URINE 4+ (NEGATIVE); UROBILINOGEN,URINE NORMAL (NORMAL)
[2019-03-11 19:31] LABS: APPEARANCE,URINE CLEAR (CLEAR); BACTERIA,URINE TRACE /HPF (NEGATIVE); COLOR,URINE YELLOW (YELLOW); RENAL EPITHELIAL CELLS,URINE FEW /HPF (NEGATIVE); SQUAMOUS EPITHELIAL CELL,UR MODERATE /HPF (NEGATIVE)
[2019-03-11] MEDS: CATAPRES TAB 0.1 MG PO SCH (20:28)
[2019-03-11] MEDS: COLACE CAP 100 MG PO SCH (20:28)
[2019-03-12] MEDS: NS 1000 ML 1,000 ML IV SCH ×4 (03:05→20:51)
[2019-03-12] MEDS: MORPHINE SULFATE INJ 2 MG INJ IVP PRN ×3 (05:11→21:14)
[2019-03-12 06:09] LABS: BASOPHILS # (AUTO) 0.1 X10^3/uL (0.0-0.1); BASOPHILS % (AUTO) 2.1 % (0.2-1.0); EOSINOPHILS # (AUTO) 0.3 x10^3/uL (0.0-0.2); HEMATOCRIT 28.1 % (36.0-47.0); HEMOGLOBIN 9.6 g/dL (12.0-16.0); LYMPHOCYTES # (AUTO) 1.4 X10^3/uL (1.3-2.9); LYMPHOCYTES % (AUTO) 26.9 % (21.0-51.0); MEAN CORPUSCULAR HGB CONC 34.1 g/dL (33.0-35.0); MEAN CORPUSCULAR VOLUME 90.8 fL (80.0-100.0); MEAN PLATELET VOLUME 9.1 fL (7.4-11.0); MONOCYTES # (AUTO) 0.4 x10^3/uL (0.3-0.8); MONOCYTES % (AUTO) 8.5 % (0.0-13.0); NEUTROPHILS % (AUTO) 57.5 % (42.0-75.0); PLATELET COUNT 215 X10^3/uL (150.0-450.0); RED BLOOD COUNT 3.09 X10^6/uL (3.5-5.4); RED CELL DISTRIBUTION WIDTH 14.8 % (11.6-16.5); WHITE BLOOD COUNT 5.1 X10^3/uL (3.6-10.0)
[2019-03-12 07:09] LABS: CREATININE 2.46 mg/dL (0.55-1.02)
[2019-03-12 07:10] LABS: ALBUMIN 2.4 g/dL (3.4-5.0); CALCIUM 7.6 mg/dL (8.5-10.1); CHOL/HDL RATIO 11.3 (0.0-5.0); COR CA(FOR HYPOALB) 8.9 mg/dL (8.5-10.1)
[2019-03-12] MEDS: CATAPRES TAB 0.1 MG PO SCH ×2 (09:08→20:51)
[2019-03-12] MEDS: ROCEPHIN VIAL 1 GRAM IVP SCH (09:12)
--- NOTE | 2019-03-12 13:45 | PCM.PROG ---
Progress Note - Progress Note for Day of Date of Exam: 03/12/19 - Subjective Subjective: 38 WF ADMITTED ON 03/11 WITH HYPERTENSIVE URGENCY AND UTI, FAILING OUTPT THERAPY. PT IS CURRENTLY ON IV ROCEPHIN WITH BC AND UC COLLECTED ON ADMISSION. PT HAD FLP THIS AM WITH TRIGS 284, CHOLESTEROL 293 PT WAS STARTED ON CRESTOR. PT CONTINUES LOWER EXTREMITY CO PAIN, BP STABLE THIS AM. PT RENAL FUNCTION ELEVATED, WILL INCREASED NS TO 75CC/HR WITH STRICT I&OS, REPEAT AM CXR - Past Medical Family Social History Past Med/Fam/Surg Hx: No changes since H&P Allergies: Allergies No Known Drug Allergies Allergy (Verified 02/27/19 10:49) - Review of Systems ROS: No change since H&P - Vital Signs and I&O's Vital Signs: Temperature 98.4 F Pulse Rate 60 Respiratory Rate 12 Blood Pressure [Left Calf] 132/93 Blood Pressure [Left Arm] 169/83 Blood Pressure [Right Arm] 149/70 Blood Pressure 98/53 O2 Sat by Pulse Oximetry 98 Intake and Output: Intake & Output 03/10/19 03/11/19 03/12/19 03/13/19 11:59 11:59 11:59 11:59 Intake Total 1418 / 1418 Output Total 1025 / 1025 Balance 393 / 393 - Physical Exam Oriented: Normal Eyes: Blurred Vision (CHRONIC) Ear: Normal Nose: Normal Respiratory: Normal Cardiovascular: Normal, Edema : Normal Auscultation: Bowel Sounds: Normal Tenderness: Normal Skin: Decreased Turgur Musculoskeletal: Right, Leg, Back:Lumbar, Deformity Psychiatric: Anxiety Affect: Anxious Speech Pattern: Clear, Appropriate - Laboratory and Diagnostics Result Diagrams: 03/12/19 05:02 03/12/19 05:02 Labs: 03/11/19 19:00 Urine,Clean Catch Urine Culture - Preliminary Laboratory WBC 5.1 X10^3/uL (3.6-10.0) 03/12/19 05:02 RBC 3.09 X10^6/uL (3.5-5.4) L 03/12/19 05:02 Hgb 9.6 g/dL (12.0-16.0) L 03/12/19 05:02 Hct 28.1 % (36.0-47.0) L 03/12/19 05:02 MCV 90.8 fL (80.0-100.0) 03/12/19 05:02 MCH 31.0 pg (27.0-34.0) 03/12/19 05:02 MCHC 34.1 g/dL (33.0-35.0) 03/12/19 05:02 RDW 14.8 % (11.6-16.5) 03/12/19 05:02 Plt Count 215 X10^3/uL (150.0-450.0) 03/12/19 05:02 MPV 9.1 fL (7.4-11.0) 03/12/19 05:02 Neut % (Auto) 57.5 % (42.0-75.0) 03/12/19 05:02 Lymph % (Auto) 26.9 % (21.0-51.0) 03/12/19 05:02 [place] % (Auto) 8.5 % (0.0-13.0) 03/12/19 05:02 Eos % (Auto) 5.0 % (0.9-2.9) H 03/12/19 05:02 Baso % (Auto) 2.1 % (0.2-1.0) H 03/12/19 05:02 Neut # (Auto) 3.0 x10^3/uL (2.2-4.8) 03/12/19 05:02 Lymph # (Auto) 1.4 X10^3/uL (1.3-2.9) 03/12/19 05:02 [place] # (Auto) 0.4 x10^3/uL (0.3-0.8) 03/12/19 05:02 Eos # (Auto) 0.3 x10^3/uL (0.0-0.2) H 03/12/19 05:02 Baso # (Auto) 0.1 X10^3/uL (0.0-0.1) 03/12/19 05:02 Absolute Nucleated RBC 0.1 /100WBC 03/12/19 05:02 Sodium 139 mmol/L (136-145) 03/12/19 05:02 Corrected Sodium 141 mmol/L (136-145) 03/12/19 05:02 Potassium 4.2 mmol/L (3.5-5.1) 03/12/19 05:02 Chloride 106 mmol/L (98-107) 03/12/19 05:02 Carbon Dioxide 24.0 mmol/L (21-32) 03/12/19 05:02 BUN 35 mg/dL (7-18) H 03/12/19 05:02 Creatinine 2.46 mg/dL (0.55-1.02) H 03/12/19 05:02 Est GFR (MDRD) Af Amer 28 (>60) L 03/12/19 05:02 Est GFR (MDRD) Non-Af 23 (>60) L 03/12/19 05:02 Glucose 198 mg/dL (65-99) H 03/12/19 05:02 Calcium 7.6 mg/dL (8.5-10.1) L 03/12/19 05:02 Corrected Calcium 8.9 mg/dL (8.5-10.1) 03/12/19 05:02 Total Bilirubin 0.20 mg/dL (0.2-1.0) 03/12/19 05:02 AST 14 Units/L (15-37) L 03/12/19 05:02 ALT 20 Units/L (12-78) 03/12/19 05:02 Alkaline Phosphatase 69 Units/L (46-116) 03/12/19 05:02 Creatine Kinase 68 Units/L (26-192) 03/11/19 13:26 CK-MB (CK-2) 1.8 ng/mL (0-4.0) 03/11/19 13:26 CK/CKMB % Calc 2.7 % (<4) 03/11/19 13:26 Troponin I < 0.02 ng/mL (0-1.5) 03/11/19 13:26 Total Protein 6.0 g/dL (6.4-8.2) L 03/12/19 05:02 Albumin 2.4 g/dL (3.4-5.0) L 03/12/19 05:02 Globulin 3.6 g/dL (2.5-4.5) 03/12/19 05:02 Albumin/Globulin Ratio 0.7 Ratio (1.1-2.1) L 03/12/19 05:02 Triglycerides 284 mg/dL (0-150) H 03/12/19 05:02 Cholesterol 293 mg/dL (0-200) H 03/12/19 05:02 LDL Cholesterol, Calc 210 mg/dL (0-100) H 03/12/19 05:02 HDL Cholesterol 26 mg/dL (40-60) L 03/12/19 05:02 Cholesterol/HDL Ratio 11.3 (0.0-5.0) H 03/12/19 05:02 Specimen Type Clean catch urine 03/11/19 19:00 Urine Color Yellow (YELLOW) 03/11/19 19:00 Urine Appearance Clear (CLEAR) 03/11/19 19:00 Urine pH 6.0 (5.0 - 8.0) 03/11/19 19:00 Ur Specific [place] 1.015 (1.000-1.030) 03/11/19 19:00 Urine Protein 4+ (NEGATIVE) 03/11/19 19:00 Urine Glucose (UA) 2+ (NEGATIVE) 03/11/19 19:00 Urine Ketones Negative (NEGATIVE) 03/11/19 19:00 Urine Occult Blood 2+ (NEGATIVE) 03/11/19 19:00 Urine Nitrite Negative (NEGATIVE) 03/11/19 19:00 Urine Bilirubin Negative (NEGATIVE) 03/11/19 19:00 Urine Urobilinogen Normal (NORMAL) 03/11/19 19:00 Ur Leukocyte Esterase Negative (NEGATIVE) 03/11/19 19:00 Urine RBC 5-10 /HPF (0-3) A 03/11/19 19:00 Urine WBC 0-2 /HPF (0-5) 03/11/19 19:00 Ur Squamous Epith Cells Moderate /HPF (NEGATIVE) 03/11/19 19:00 Ur Renal Epithelial Cell Few /HPF (NEGATIVE) 03/11/19 19:00 Urine Bacteria Trace /HPF (NEGATIVE) 03/11/19 19:00 Ur Culture Indicated? Yes/culture set up 03/11/19 19:00 - Plan (1) Hypertensive urgency Status: Acute Plan: AM CXR. EKG ON ADMISSION WITH CE. BP CONTROL, IV HYDRALAZINE, BLOOD C ULTURES. URINE CULTURE, IV ROCEPHIN. BS CONTROL, SSI (2) CKD (chronic kidney disease) stage 3, GFR 30-59 ml/min Status: Acute (3) Uncontrolled diabetes mellitus Status: Acute Qualifiers: Diabetes mellitus type: type 2 Glycemic state: with hyperglycemia Qualified Code(s): E11.65 - Type 2 diabetes mellitus with hyperglycemia (4) UTI (urinary tract infection) Status: Acute Qualifiers: Urinary tract infection type: site unspecified Hematuria presence: with hematuria Qualified Code(s): N39.0 - Urinary tract infection, site not specified; R31.9 - Hematuria, unspecified (5) CAD (coronary artery disease) Status: Chronic (6) GERD (gastroesophageal reflux disease) Status: Chronic
[2019-03-12] MEDS ORDERED: NEURONTIN TAB 600 MG PO SCH (14:00)
[2019-03-12] MEDS: EFFEXOR XR 75 MG CAP PO SCH (14:52)
[2019-03-12] MEDS: ASPIRIN PO SCH (14:52)
[2019-03-12] MEDS: NORCO 10/325 TAB PO PRN (19:20)
[2019-03-12] MEDS: HumuLIN R SC PRN (20:49)
[2019-03-12] MEDS: COLACE CAP 100 MG PO SCH (20:51)
[2019-03-12] MEDS: CRESTOR TAB 10 MG PO SCH (20:51)
[2019-03-13] MEDS: MORPHINE SULFATE INJ 2 MG INJ IVP PRN ×3 (04:25→19:03)
[2019-03-13 05:21] LABS: BASOPHILS # (AUTO) 0.1 X10^3/uL (0.0-0.1); BASOPHILS % (AUTO) 2.5 % (0.2-1.0); EOSINOPHILS # (AUTO) 0.2 x10^3/uL (0.0-0.2); EOSINOPHILS % (AUTO) 5.2 % (0.9-2.9); HEMATOCRIT 26.3 % (36.0-47.0); LYMPHOCYTES # (AUTO) 1.6 X10^3/uL (1.3-2.9); LYMPHOCYTES % (AUTO) 35.4 % (21.0-51.0); MEAN CORPUSCULAR HEMOGLOBIN 31.2 pg (27.0-34.0); MEAN CORPUSCULAR HGB CONC 34.1 g/dL (33.0-35.0); MEAN CORPUSCULAR VOLUME 91.4 fL (80.0-100.0); MEAN PLATELET VOLUME 8.7 fL (7.4-11.0); MONOCYTES # (AUTO) 0.3 x10^3/uL (0.3-0.8); MONOCYTES % (AUTO) 7.6 % (0.0-13.0); NEUTROPHILS # (AUTO) 2.2 x10^3/uL (2.2-4.8); NEUTROPHILS % (AUTO) 49.3 % (42.0-75.0); PLATELET COUNT 193 X10^3/uL (150.0-450.0); RED BLOOD COUNT 2.87 X10^6/uL (3.5-5.4); RED CELL DISTRIBUTION WIDTH 14.5 % (11.6-16.5); WHITE BLOOD COUNT 4.5 X10^3/uL (3.6-10.0)
[2019-03-13 05:31] LABS: ALBUMIN 2.5 g/dL (3.4-5.0); CALCIUM 7.4 mg/dL (8.5-10.1); CARBON DIOXIDE 24.9 mmol/L (21-32); COR CA(FOR HYPOALB) 8.6 mg/dL (8.5-10.1); CREATININE 2.81 mg/dL (0.55-1.02)
[2019-03-13] MEDS: HumuLIN R SC PRN ×4 (06:23→20:40)
[2019-03-13] MEDS: NS 1000 ML 1,000 ML IV SCH ×3 (06:23→21:36)
[2019-03-13] MEDS: NORCO 10/325 TAB PO PRN ×2 (08:35→21:38)
[2019-03-13] MEDS: EFFEXOR XR 75 MG CAP PO SCH (08:37)
[2019-03-13] MEDS: ROCEPHIN VIAL 1 GRAM 1 G in NS 100 ML IV + SPIKE MINIBAG* 100 ML IV SCH (08:37)
[2019-03-13] MEDS: ASPIRIN PO SCH (08:37)
[2019-03-13] MEDS: CATAPRES TAB 0.1 MG PO SCH ×2 (08:37→20:44)
--- NOTE | 2019-03-13 10:05 | RAD ---
HISTORY: Diabetes, hypertension Study: Chest AP portable Comparison: 01/04/2019 Findings: Patient is status post median sternotomy and CABG. The heart is enlarged. No congestive heart failure is noted. No acute alveolar infiltrates or pleural effusions are identified. The bony thorax is unremarkable. IMPRESSION: Moderate cardiomegaly without congestive heart failure Lungs clear Reported By:
[2019-03-13 20:23] LABS: BILIRUBIN,URINE NEGATIVE (NEGATIVE); BLOOD/HEMOGLOBIN,URINE 2+ (NEGATIVE); GLUCOSE, URINE 2+ (NEGATIVE); KETONES,URINE NEGATIVE (NEGATIVE); LEUKOCYTE ESTERASE ,URINE NEGATIVE (NEGATIVE); NITRITES,URINE NEGATIVE (NEGATIVE); PROTEIN,URINE 4+ (NEGATIVE); UROBILINOGEN,URINE NORMAL (NORMAL)
[2019-03-13 20:26] LABS: APPEARANCE,URINE CLEAR (CLEAR); COLOR,URINE YELLOW (YELLOW)
[2019-03-13 20:30] LABS: BACTERIA,URINE NEGATIVE /HPF (NEGATIVE); FINE GRANULAR CASTS,URINE RARE /LPF (NEGATIVE); RBC,URINE 0-2 /HPF (0-3); SQUAMOUS EPITHELIAL CELL,UR RARE /HPF (NEGATIVE)
[2019-03-13] MEDS: CRESTOR TAB 10 MG PO SCH (20:44)
[2019-03-13] MEDS: COLACE CAP 100 MG PO SCH (20:44)
[2019-03-14] MEDS: MORPHINE SULFATE INJ 2 MG INJ IVP PRN ×3 (02:24→19:12)
[2019-03-14 05:30] LABS: BASOPHILS # (AUTO) 0.1 X10^3/uL (0.0-0.1); BASOPHILS % (AUTO) 2.1 % (0.2-1.0); EOSINOPHILS # (AUTO) 0.2 x10^3/uL (0.0-0.2); EOSINOPHILS % (AUTO) 5.1 % (0.9-2.9); HEMATOCRIT 27.4 % (36.0-47.0); HEMOGLOBIN 9.3 g/dL (12.0-16.0); LYMPHOCYTES # (AUTO) 1.3 X10^3/uL (1.3-2.9); LYMPHOCYTES % (AUTO) 28.2 % (21.0-51.0); MEAN CORPUSCULAR HEMOGLOBIN 30.9 pg (27.0-34.0); MEAN PLATELET VOLUME 9.6 fL (7.4-11.0); MONOCYTES # (AUTO) 0.3 x10^3/uL (0.3-0.8); MONOCYTES % (AUTO) 6.6 % (0.0-13.0); NEUTROPHILS # (AUTO) 2.6 x10^3/uL (2.2-4.8); PLATELET COUNT 197 X10^3/uL (150.0-450.0); RED BLOOD COUNT 3.01 X10^6/uL (3.5-5.4); RED CELL DISTRIBUTION WIDTH 14.3 % (11.6-16.5); WHITE BLOOD COUNT 4.5 X10^3/uL (3.6-10.0)
[2019-03-14 05:52] LABS: ALBUMIN 2.5 g/dL (3.4-5.0); CALCIUM 7.8 mg/dL (8.5-10.1); CARBON DIOXIDE 24.8 mmol/L (21-32); CREATININE 2.27 mg/dL (0.55-1.02)
[2019-03-14] MEDS: NS 1000 ML 1,000 ML IV SCH ×2 (05:52→16:03)
[2019-03-14] MEDS: HumuLIN R SC PRN ×3 (05:52→20:21)
[2019-03-14] MEDS: ASPIRIN PO SCH (08:47)
[2019-03-14] MEDS: CATAPRES TAB 0.1 MG PO SCH ×2 (08:47→20:20)
[2019-03-14] MEDS: ROCEPHIN VIAL 1 GRAM 1 G in NS 100 ML IV + SPIKE MINIBAG* 100 ML IV SCH (08:47)
[2019-03-14] MEDS: EFFEXOR XR 75 MG CAP PO SCH (08:47)
[2019-03-14] MEDS ORDERED: DIFLUCAN ONE (12:19)
[2019-03-14] MEDS ORDERED: TOPAMAX TAB 100 MG PO ONE (12:21)
[2019-03-14] MEDS: LOPRESSOR TAB 50 MG PO SCH ×2 (12:30→20:19)
[2019-03-14] MEDS: DIFLUCAN PO SCH (12:30)
[2019-03-14] MEDS: LYRICA CAP 50 mg PO SCH ×2 (12:31→20:19)
[2019-03-14] MEDS: TOPAMAX PO SCH ×2 (12:31→20:20)
[2019-03-14] MEDS: PROTONIX TAB 40 MG PO SCH (12:31)
[2019-03-14] MEDS: NORCO 10/325 TAB PO PRN (15:56)
[2019-03-14] MEDS: SNACK - Diabetic Appropriate PO SCH (19:35)
[2019-03-14] MEDS: CRESTOR TAB 10 MG PO SCH (20:19)
[2019-03-14] MEDS: COLACE CAP 100 MG PO SCH (20:19)
[2019-03-15] MEDS: MORPHINE SULFATE INJ 2 MG INJ IVP PRN ×4 (01:12→22:35)
[2019-03-15] MEDS: NS 1000 ML 1,000 ML IV SCH ×3 (04:03→16:21)
[2019-03-15 05:22] LABS: BASOPHILS # (AUTO) 0.1 X10^3/uL (0.0-0.1); BASOPHILS % (AUTO) 2.2 % (0.2-1.0); EOSINOPHILS # (AUTO) 0.3 x10^3/uL (0.0-0.2); EOSINOPHILS % (AUTO) 5.6 % (0.9-2.9); HEMATOCRIT 27.8 % (36.0-47.0); HEMOGLOBIN 9.4 g/dL (12.0-16.0); LYMPHOCYTES # (AUTO) 1.5 X10^3/uL (1.3-2.9); LYMPHOCYTES % (AUTO) 31.7 % (21.0-51.0); MEAN CORPUSCULAR HEMOGLOBIN 31.2 pg (27.0-34.0); MEAN CORPUSCULAR HGB CONC 33.9 g/dL (33.0-35.0); MEAN CORPUSCULAR VOLUME 92.1 fL (80.0-100.0); MEAN PLATELET VOLUME 9.4 fL (7.4-11.0); MONOCYTES # (AUTO) 0.3 x10^3/uL (0.3-0.8); MONOCYTES % (AUTO) 7.2 % (0.0-13.0); NEUTROPHILS # (AUTO) 2.5 x10^3/uL (2.2-4.8); NEUTROPHILS % (AUTO) 53.3 % (42.0-75.0); PLATELET COUNT 214 X10^3/uL (150.0-450.0); RED BLOOD COUNT 3.02 X10^6/uL (3.5-5.4); RED CELL DISTRIBUTION WIDTH 14.6 % (11.6-16.5); WHITE BLOOD COUNT 4.7 X10^3/uL (3.6-10.0)
[2019-03-15 05:37] LABS: ALBUMIN 2.7 g/dL (3.4-5.0); CALCIUM 7.7 mg/dL (8.5-10.1); COR CA(FOR HYPOALB) 8.7 mg/dL (8.5-10.1); CREATININE 2.32 mg/dL (0.55-1.02); TOTAL PROTEIN 6.3 g/dL (6.4-8.2)
[2019-03-15] MEDS: TOPAMAX PO SCH ×2 (08:12→22:24)
[2019-03-15] MEDS: DIFLUCAN PO SCH (08:14)
[2019-03-15] MEDS: ASPIRIN PO SCH (08:14)
[2019-03-15] MEDS: CATAPRES TAB 0.1 MG PO SCH ×2 (08:15→22:25)
[2019-03-15] MEDS: PROTONIX TAB 40 MG PO SCH (08:15)
[2019-03-15] MEDS: EFFEXOR XR 75 MG CAP PO SCH (08:15)
[2019-03-15] MEDS: LYRICA CAP 50 mg PO SCH ×2 (08:15→21:00)
[2019-03-15] MEDS: LOPRESSOR TAB 50 MG PO SCH ×2 (08:15→22:25)
[2019-03-15] MEDS: ROCEPHIN VIAL 1 GRAM 1 G in NS 100 ML IV + SPIKE MINIBAG* 100 ML IV SCH (08:15)
[2019-03-15] MEDS: HumuLIN R SC PRN ×2 (11:52→16:42)
[2019-03-15] MEDS ORDERED: COZAAR PO SCH (14:00)
[2019-03-15] MEDS: SNACK - Diabetic Appropriate PO SCH (22:23)
[2019-03-15] MEDS: COLACE CAP 100 MG PO SCH (22:26)
[2019-03-15] MEDS: CRESTOR TAB 10 MG PO SCH (22:27)
[2019-03-16 05:12] LABS: BASOPHILS # (AUTO) 0.1 X10^3/uL (0.0-0.1); BASOPHILS % (AUTO) 2.7 % (0.2-1.0); EOSINOPHILS # (AUTO) 0.3 x10^3/uL (0.0-0.2); EOSINOPHILS % (AUTO) 5.4 % (0.9-2.9); HEMATOCRIT 30.9 % (36.0-47.0); HEMOGLOBIN 10.2 g/dL (12.0-16.0); LYMPHOCYTES # (AUTO) 1.7 X10^3/uL (1.3-2.9); MEAN CORPUSCULAR HEMOGLOBIN 30.6 pg (27.0-34.0); MEAN CORPUSCULAR HGB CONC 32.9 g/dL (33.0-35.0); MEAN CORPUSCULAR VOLUME 92.9 fL (80.0-100.0); MEAN PLATELET VOLUME 9.9 fL (7.4-11.0); MONOCYTES # (AUTO) 0.3 x10^3/uL (0.3-0.8); MONOCYTES % (AUTO) 6.5 % (0.0-13.0); NEUTROPHILS # (AUTO) 2.4 x10^3/uL (2.2-4.8); NEUTROPHILS % (AUTO) 50.4 % (42.0-75.0); PLATELET COUNT 223 X10^3/uL (150.0-450.0); RED BLOOD COUNT 3.33 X10^6/uL (3.5-5.4); RED CELL DISTRIBUTION WIDTH 14.8 % (11.6-16.5); WHITE BLOOD COUNT 4.8 X10^3/uL (3.6-10.0)
[2019-03-16 05:29] LABS: ALBUMIN 2.9 g/dL (3.4-5.0); CALCIUM 8.3 mg/dL (8.5-10.1); CARBON DIOXIDE 22.2 mmol/L (21-32); COR CA(FOR HYPOALB) 9.2 mg/dL (8.5-10.1); CREATININE 2.6 mg/dL (0.55-1.02); TOTAL PROTEIN 6.7 g/dL (6.4-8.2)
[2019-03-16] MEDS: NS 1000 ML 1,000 ML IV SCH ×2 (05:36→20:58)
[2019-03-16] MEDS: ZOFRAN INJ 4 MG VIAL IVP PRN (05:37)
[2019-03-16] MEDS: MORPHINE SULFATE INJ 2 MG INJ IVP PRN ×3 (05:37→22:22)
[2019-03-16] MEDS: HumuLIN R SC PRN ×2 (05:38→17:24)
[2019-03-16] MEDS ORDERED: PHENERGAN INJ 25 MG IM ONE (08:41)
[2019-03-16] MEDS: ROCEPHIN VIAL 1 GRAM 1 G in NS 100 ML IV + SPIKE MINIBAG* 100 ML IV SCH (09:22)
[2019-03-16] MEDS: CATAPRES TAB 0.1 MG PO SCH ×2 (09:23→21:11)
[2019-03-16] MEDS: TOPAMAX PO SCH ×2 (09:23→21:12)
[2019-03-16] MEDS: EFFEXOR XR 75 MG CAP PO SCH (09:23)
[2019-03-16] MEDS: DIFLUCAN PO SCH (09:24)
[2019-03-16] MEDS: PROTONIX TAB 40 MG PO SCH (09:24)
[2019-03-16] MEDS: ASPIRIN PO SCH (09:24)
[2019-03-16] MEDS: APRESOLINE TAB 25 MG PO SCH ×2 (09:24→21:10)
--- NOTE | 2019-03-16 09:30 | RAD ---
HISTORY: Tenderness/nausea. Prior history of diabetes, hypertension, CHF. Prior surgical history of CABG, , cholecystectomy. Orthopedic surgeries. Study: KUB Comparison: 02/27/2019. Findings: There is a very large amount of stool extending from the cecum to the level of the mid transverse colon. Bowel gas is seen extending to the level of the rectum. No obstruction is seen. There are surgical clips from cholecystectomy. There is no evidence of opaque stone. Osseous structures are intact. IMPRESSION: Large amount of stool present extending from the cecum to the mid transverse colon. No bowel obstruction is seen. Reported By:
[2019-03-16] MEDS ORDERED: DULCOLAX SUPPOSITORY 10 MG RECTAL ONE (14:40)
[2019-03-16] MEDS: DULCOLAX SUPPOSITORY 10 MG RECTAL ONE ×2 (15:19→17:28)
[2019-03-16] MEDS ORDERED: DULCOLAX SUPPOSITORY 10 MG ONE (16:23)
[2019-03-16] MEDS: SNACK - Diabetic Appropriate PO SCH (20:58)
[2019-03-16] MEDS: COLACE CAP 100 MG PO SCH (21:11)
[2019-03-16] MEDS: CRESTOR TAB 10 MG PO SCH (21:11)
[2019-03-17] MEDS: APRESOLINE INJ 20 MG VIAL IVP PRN (03:37)
[2019-03-17 04:52] LABS: BASOPHILS # (AUTO) 0.1 X10^3/uL (0.0-0.1); BASOPHILS % (AUTO) 2.5 % (0.2-1.0); EOSINOPHILS # (AUTO) 0.2 x10^3/uL (0.0-0.2); EOSINOPHILS % (AUTO) 5.7 % (0.9-2.9); HEMATOCRIT 27.8 % (36.0-47.0); HEMOGLOBIN 9.2 g/dL (12.0-16.0); LYMPHOCYTES # (AUTO) 1.2 X10^3/uL (1.3-2.9); LYMPHOCYTES % (AUTO) 28.7 % (21.0-51.0); MEAN CORPUSCULAR HEMOGLOBIN 30.6 pg (27.0-34.0); MEAN CORPUSCULAR HGB CONC 33.2 g/dL (33.0-35.0); MEAN CORPUSCULAR VOLUME 92.2 fL (80.0-100.0); MONOCYTES # (AUTO) 0.3 x10^3/uL (0.3-0.8); MONOCYTES % (AUTO) 6.8 % (0.0-13.0); NEUTROPHILS # (AUTO) 2.3 x10^3/uL (2.2-4.8); NEUTROPHILS % (AUTO) 56.3 % (42.0-75.0); PLATELET COUNT 178 X10^3/uL (150.0-450.0); RED BLOOD COUNT 3.02 X10^6/uL (3.5-5.4); RED CELL DISTRIBUTION WIDTH 14.7 % (11.6-16.5); WHITE BLOOD COUNT 4.1 X10^3/uL (3.6-10.0)
[2019-03-17 05:03] LABS: ALBUMIN 2.6 g/dL (3.4-5.0); CALCIUM 7.9 mg/dL (8.5-10.1); CARBON DIOXIDE 23.2 mmol/L (21-32); CREATININE 2.42 mg/dL (0.55-1.02)
[2019-03-17] MEDS: HumuLIN R SC PRN ×2 (05:35→20:06)
[2019-03-17] MEDS: MORPHINE SULFATE INJ 2 MG INJ IVP PRN ×3 (05:35→20:06)
[2019-03-17] MEDS: NS 1000 ML 1,000 ML IV SCH ×3 (05:52→18:09)
[2019-03-17] MEDS: APRESOLINE TAB 25 MG PO SCH ×2 (08:33→20:04)
[2019-03-17] MEDS: CATAPRES TAB 0.1 MG PO SCH ×2 (08:33→20:04)
[2019-03-17] MEDS: TOPAMAX PO SCH ×2 (08:33→20:05)
[2019-03-17] MEDS: DIFLUCAN PO SCH (08:33)
[2019-03-17] MEDS: EFFEXOR XR 75 MG CAP PO SCH (08:34)
[2019-03-17] MEDS: ROCEPHIN VIAL 1 GRAM 1 G in NS 100 ML IV + SPIKE MINIBAG* 100 ML IV SCH (08:34)
[2019-03-17] MEDS: PROTONIX TAB 40 MG PO SCH (08:34)
[2019-03-17] MEDS: ASPIRIN PO SCH (08:34)
[2019-03-17] MEDS ORDERED: KAYEXALATE SUSP PO ONE (08:43)
[2019-03-17] MEDS: NORCO 10/325 TAB PO PRN (10:16)
[2019-03-17 18:20] LABS: ALBUMIN 2.7 g/dL (3.4-5.0); CALCIUM 8.1 mg/dL (8.5-10.1); CARBON DIOXIDE 23.2 mmol/L (21-32); COR CA(FOR HYPOALB) 9.1 mg/dL (8.5-10.1); CREATININE 2.34 mg/dL (0.55-1.02); TOTAL PROTEIN 6.2 g/dL (6.4-8.2)
[2019-03-17] MEDS: COLACE CAP 100 MG PO SCH (20:04)
[2019-03-17] MEDS: CRESTOR TAB 10 MG PO SCH (20:04)
[2019-03-17] MEDS: SNACK - Diabetic Appropriate PO SCH (20:04)
[2019-03-18] MEDS: NS 1000 ML 1,000 ML IV SCH ×2 (04:08→05:34)
[2019-03-18] MEDS: MORPHINE SULFATE INJ 2 MG INJ IVP PRN ×3 (04:08→21:05)
[2019-03-18 04:56] LABS: BASOPHILS # (AUTO) 0.1 X10^3/uL (0.0-0.1); BASOPHILS % (AUTO) 2.5 % (0.2-1.0); EOSINOPHILS # (AUTO) 0.2 x10^3/uL (0.0-0.2); EOSINOPHILS % (AUTO) 5.3 % (0.9-2.9); HEMATOCRIT 27.3 % (36.0-47.0); LYMPHOCYTES # (AUTO) 1.2 X10^3/uL (1.3-2.9); LYMPHOCYTES % (AUTO) 36.1 % (21.0-51.0); MEAN CORPUSCULAR HEMOGLOBIN 30.4 pg (27.0-34.0); MEAN CORPUSCULAR HGB CONC 33.1 g/dL (33.0-35.0); MEAN CORPUSCULAR VOLUME 91.8 fL (80.0-100.0); MEAN PLATELET VOLUME 10.1 fL (7.4-11.0); MONOCYTES # (AUTO) 0.2 x10^3/uL (0.3-0.8); MONOCYTES % (AUTO) 5.7 % (0.0-13.0); NEUTROPHILS # (AUTO) 1.6 x10^3/uL (2.2-4.8); NEUTROPHILS % (AUTO) 50.4 % (42.0-75.0); PLATELET COUNT 174 X10^3/uL (150.0-450.0); RED BLOOD COUNT 2.98 X10^6/uL (3.5-5.4); RED CELL DISTRIBUTION WIDTH 14.4 % (11.6-16.5); WHITE BLOOD COUNT 3.2 X10^3/uL (3.6-10.0)
[2019-03-18 05:03] LABS: ALBUMIN 2.6 g/dL (3.4-5.0); CALCIUM 7.8 mg/dL (8.5-10.1); CARBON DIOXIDE 24.6 mmol/L (21-32); COR CA(FOR HYPOALB) 8.9 mg/dL (8.5-10.1); CREATININE 2.3 mg/dL (0.55-1.02); TOTAL PROTEIN 5.9 g/dL (6.4-8.2)
[2019-03-18] MEDS: DIFLUCAN PO SCH (08:03)
[2019-03-18] MEDS: APRESOLINE TAB 25 MG PO SCH ×2 (08:03→20:58)
[2019-03-18] MEDS: TOPAMAX PO SCH ×2 (08:03→20:59)
[2019-03-18] MEDS: PROTONIX TAB 40 MG PO SCH (08:03)
[2019-03-18] MEDS: EFFEXOR XR 75 MG CAP PO SCH (08:03)
[2019-03-18] MEDS: ASPIRIN PO SCH (08:03)
[2019-03-18] MEDS: CATAPRES TAB 0.1 MG PO SCH ×2 (08:03→20:58)
[2019-03-18] MEDS: ROCEPHIN VIAL 1 GRAM 1 G in NS 100 ML IV + SPIKE MINIBAG* 100 ML IV SCH (08:04)
[2019-03-18] MEDS: NORCO 10/325 TAB PO PRN (08:08)
[2019-03-18] MEDS ORDERED: KAYEXALATE SUSP PO ONE (08:48)
[2019-03-18] MEDS: HumuLIN R SC PRN (12:00)
[2019-03-18] MEDS: SNACK - Diabetic Appropriate PO SCH (20:30)
[2019-03-18] MEDS: COLACE CAP 100 MG PO SCH (20:58)
[2019-03-18] MEDS: CRESTOR TAB 10 MG PO SCH (21:00)
[2019-03-19] MEDS: NS 1000 ML 1,000 ML IV SCH ×2 (01:21→17:16)
[2019-03-19] MEDS: APRESOLINE INJ 20 MG VIAL IVP PRN ×2 (03:20→12:53)
[2019-03-19 05:24] LABS: BASOPHILS # (AUTO) 0.1 X10^3/uL (0.0-0.1); BASOPHILS % (AUTO) 2.4 % (0.2-1.0); EOSINOPHILS # (AUTO) 0.1 x10^3/uL (0.0-0.2); EOSINOPHILS % (AUTO) 4.4 % (0.9-2.9); HEMATOCRIT 29.4 % (36.0-47.0); HEMOGLOBIN 9.9 g/dL (12.0-16.0); LYMPHOCYTES # (AUTO) 1.2 X10^3/uL (1.3-2.9); LYMPHOCYTES % (AUTO) 36.4 % (21.0-51.0); MEAN CORPUSCULAR HEMOGLOBIN 30.9 pg (27.0-34.0); MEAN CORPUSCULAR HGB CONC 33.6 g/dL (33.0-35.0); MEAN CORPUSCULAR VOLUME 91.8 fL (80.0-100.0); MEAN PLATELET VOLUME 10.4 fL (7.4-11.0); MONOCYTES # (AUTO) 0.2 x10^3/uL (0.3-0.8); MONOCYTES % (AUTO) 5.1 % (0.0-13.0); NEUTROPHILS # (AUTO) 1.7 x10^3/uL (2.2-4.8); NEUTROPHILS % (AUTO) 51.7 % (42.0-75.0); PLATELET COUNT 166 X10^3/uL (150.0-450.0); RED CELL DISTRIBUTION WIDTH 14.4 % (11.6-16.5); WHITE BLOOD COUNT 3.2 X10^3/uL (3.6-10.0)
[2019-03-19 05:36] LABS: ALBUMIN 2.6 g/dL (3.4-5.0); CALCIUM 7.9 mg/dL (8.5-10.1); CREATININE 2.13 mg/dL (0.55-1.02)
[2019-03-19] MEDS: ASPIRIN PO SCH (09:06)
[2019-03-19] MEDS: EFFEXOR XR 75 MG CAP PO SCH (09:06)
[2019-03-19] MEDS: DIFLUCAN PO SCH (09:06)
[2019-03-19] MEDS: ROCEPHIN VIAL 1 GRAM 1 G in NS 100 ML IV + SPIKE MINIBAG* 100 ML IV SCH (09:06)
[2019-03-19] MEDS: APRESOLINE TAB 25 MG PO SCH ×2 (09:06→20:44)
[2019-03-19] MEDS: CATAPRES TAB 0.1 MG PO SCH ×2 (09:06→20:45)
[2019-03-19] MEDS: TOPAMAX PO SCH ×2 (09:07→20:45)
[2019-03-19] MEDS: PROTONIX TAB 40 MG PO SCH (09:07)
[2019-03-19] MEDS: MORPHINE SULFATE INJ 2 MG INJ IVP PRN ×2 (09:18→17:03)
[2019-03-19] MEDS: NORCO 10/325 TAB PO PRN (12:53)
[2019-03-19] MEDS: HumuLIN R SC PRN (17:02)
[2019-03-19] MEDS: ZOFRAN INJ 4 MG VIAL IVP PRN (18:00)
[2019-03-19] MEDS ORDERED: PHENERGAN INJ 25 MG IM PRN (18:53)
[2019-03-19] MEDS ORDERED: PHENERGAN INJ 25 MG IM ONE (18:56)
[2019-03-19] MEDS: SNACK - Diabetic Appropriate PO SCH (19:39)
[2019-03-19] MEDS: COLACE CAP 100 MG PO SCH (20:45)
[2019-03-19] MEDS: CRESTOR TAB 10 MG PO SCH (20:45)
[2019-03-19] MEDS: PHENERGAN INJ 25 MG IM PRN (22:02)
[2019-03-19] MEDS ORDERED: DULCOLAX SUPPOSITORY 10 MG RECTAL ONE (22:37)
[2019-03-20] MEDS: PHENERGAN INJ 25 MG IM PRN ×2 (02:10→10:10)
[2019-03-20] MEDS: APRESOLINE INJ 20 MG VIAL IVP PRN (02:43)
[2019-03-20] MEDS: NS 1000 ML 1,000 ML IV SCH ×2 (04:11→19:59)
[2019-03-20] MEDS ORDERED: FLEET ENEMA ADULT PR ONE (04:37)
[2019-03-20] MEDS ORDERED: FLEET ENEMA ADULT ONE (04:45)
[2019-03-20 05:23] LABS: BASOPHILS # (AUTO) 0.1 X10^3/uL (0.0-0.1); BASOPHILS % (AUTO) 1.6 % (0.2-1.0); EOSINOPHILS % (AUTO) 0.3 % (0.9-2.9); HEMATOCRIT 29.9 % (36.0-47.0); HEMOGLOBIN 10.2 g/dL (12.0-16.0); LYMPHOCYTES # (AUTO) 0.6 X10^3/uL (1.3-2.9); LYMPHOCYTES % (AUTO) 11.3 % (21.0-51.0); MEAN CORPUSCULAR HEMOGLOBIN 30.9 pg (27.0-34.0); MEAN CORPUSCULAR HGB CONC 34.1 g/dL (33.0-35.0); MEAN CORPUSCULAR VOLUME 90.6 fL (80.0-100.0); MEAN PLATELET VOLUME 9.9 fL (7.4-11.0); MONOCYTES # (AUTO) 0.1 x10^3/uL (0.3-0.8); MONOCYTES % (AUTO) 2.7 % (0.0-13.0); NEUTROPHILS # (AUTO) 4.2 x10^3/uL (2.2-4.8); NEUTROPHILS % (AUTO) 84.1 % (42.0-75.0); PLATELET COUNT 183 X10^3/uL (150.0-450.0); RED CELL DISTRIBUTION WIDTH 14.6 % (11.6-16.5)
[2019-03-20 05:39] LABS: ALBUMIN 2.8 g/dL (3.4-5.0); CALCIUM 7.8 mg/dL (8.5-10.1); COR CA(FOR HYPOALB) 8.8 mg/dL (8.5-10.1); CREATININE 2.06 mg/dL (0.55-1.02); TOTAL PROTEIN 6.5 g/dL (6.4-8.2)
[2019-03-20] MEDS: MORPHINE SULFATE INJ 2 MG INJ IVP PRN (05:43)
[2019-03-20] MEDS: ZOFRAN INJ 4 MG VIAL IVP PRN (08:20)
[2019-03-20] MEDS ORDERED: LASIX IVP ONE ×2 (09:04→09:47)
[2019-03-20] MEDS ORDERED: KAYEXALATE SUSP ONE (09:47)
[2019-03-20] MEDS: KAYEXALATE SUSP PO SCH ×2 (09:54→19:59)
[2019-03-20] MEDS: ROCEPHIN VIAL 1 GRAM 1 G in NS 100 ML IV + SPIKE MINIBAG* 100 ML IV SCH (09:54)
[2019-03-20] MEDS: ASPIRIN PO SCH (09:55)
[2019-03-20] MEDS: DIFLUCAN PO SCH (09:55)
[2019-03-20] MEDS: APRESOLINE TAB 25 MG PO SCH ×2 (09:55→20:01)
[2019-03-20] MEDS: CATAPRES TAB 0.1 MG PO SCH ×2 (09:55→20:24)
[2019-03-20] MEDS: EFFEXOR XR 75 MG CAP PO SCH (09:55)
[2019-03-20] MEDS: PROTONIX TAB 40 MG PO SCH (09:56)
[2019-03-20] MEDS: TOPAMAX PO SCH ×2 (09:56→19:59)
--- NOTE | 2019-03-20 11:41 | RAD ---
HISTORY: Abdominal pain Study: KUB Comparison: 03/16/2019. Findings: Lung bases are clear. There surgical clips from cholecystectomy. There is mild gaseous distention of the stomach and the splenic flexure of the colon. There is still a large amount of stool extending from the cecum to the mid transverse colon. Stool burden appears less when compared to the prior study. No bowel obstruction is seen. There is no evidence of opaque stone. Osseous structures are intact. IMPRESSION: Although improved, there is still large amount of stool extending from the cecum to the mid transverse colon. No bowel obstruction is seen. Reported By:
--- NOTE | 2019-03-20 13:52 | PCM.PROG ---
Progress Note - Progress Note for Day of Date of Exam: 03/19/19 - Subjective Subjective: 38 WF ADMITTED ON 03/11 WITH HYPERTENSIVE URGENCY AND UTI, FAILING OUTPT THERAPY. PT IS CURRENTLY ON IV ROCEPHIN WITH BC AND UC COLLECTED ON ADMISSION. BP HAD IMPROVED WITH TREATMENT ON HYDRALAZINE PO. PT CO NAUSEA THIS AM. PT HAS BEEN CONSTIPATED WITH IMPROVEMENT WITH TREATMENT USING PO LAXATIVES AND RECTAL ENEMA. PT K+ 5.0 WITH IMPROVING RENAL FUNCTION. PT BASELINE CREATNINE ~1.8. PT GIVEN PO KAYEXALATE AND ENCOURAGED ORAL H20 HYDRATION. - Past Medical Family Social History Past Med/Fam/Surg Hx: No changes since H&P Allergies: Allergies No Known Drug Allergies Allergy (Verified 02/27/19 10:49) - Review of Systems ROS: No change since H&P - Vital Signs and I&O's Vital Signs: Temperature 98.7 F Pulse Rate 78 Respiratory Rate 18 Blood Pressure [Left Calf] 132/93 Blood Pressure [Left Arm] 192/92 Blood Pressure [Right Arm] 149/70 Blood Pressure 159/70 O2 Sat by Pulse Oximetry 93 Intake and Output: Intake & Output 03/18/19 03/19/19 03/20/19 03/21/19 11:59 11:59 11:59 11:59 Intake Total 3270 / 3270 3401 / 3401 2183 / 2183 Output Total 1600 / 1600 100 / 100 Balance 1670 / 1670 3401 / 3401 2082 / 208 - Physical Exam Oriented: Normal Eyes: Blurred Vision (CHRONIC) Ear: Normal Nose: Normal Respiratory: Normal, Diminished Cardiovascular: Normal, Edema : Normal Auscultation: Bowel Sounds: Normal Tenderness: Normal Skin: Decreased Turgur Musculoskeletal: Right, Leg, Back:Lumbar, Deformity Psychiatric: Anxiety Affect: Anxious Speech Pattern: Clear, Appropriate - Laboratory and Diagnostics Result Diagrams: 03/20/19 03:55 03/20/19 11:56 Labs: 03/11/19 13:27 Blood Blood Culture - Final 03/11/19 13:26 Blood Blood Culture - Final 03/11/19 19:00 Urine,Clean Catch Urine Culture - Final Laboratory WBC 5.0 X10^3/uL (3.6-10.0) 03/20/19 03:55 RBC 3.30 X10^6/uL (3.5-5.4) L 03/20/19 03:55 Hgb 10.2 g/dL (12.0-16.0) L 03/20/19 03:55 Hct 29.9 % (36.0-47.0) L 03/20/19 03:55 MCV 90.6 fL (80.0-100.0) 03/20/19 03:55 MCH 30.9 pg (27.0-34.0) 03/20/19 03:55 MCHC 34.1 g/dL (33.0-35.0) 03/20/19 03:55 RDW 14.6 % (11.6-16.5) 03/20/19 03:55 Plt Count 183 X10^3/uL (150.0-450.0) 03/20/19 03:55 MPV 9.9 fL (7.4-11.0) 03/20/19 03:55 Neut % (Auto) 84.1 % (42.0-75.0) H 03/20/19 03:55 Lymph % (Auto) 11.3 % (21.0-51.0) L 03/20/19 03:55 [place] % (Auto) 2.7 % (0.0-13.0) 03/20/19 03:55 Eos % (Auto) 0.3 % (0.9-2.9) L 03/20/19 03:55 Baso % (Auto) 1.6 % (0.2-1.0) H 03/20/19 03:55 Neut # (Auto) 4.2 x10^3/uL (2.2-4.8) 03/20/19 03:55 Lymph # (Auto) 0.6 X10^3/uL (1.3-2.9) L 03/20/19 03:55 [place] # (Auto) 0.1 x10^3/uL (0.3-0.8) L 03/20/19 03:55 Eos # (Auto) 0.0 x10^3/uL (0.0-0.2) 03/20/19 03:55 Baso # (Auto) 0.1 X10^3/uL (0.0-0.1) 03/20/19 03:55 Absolute Nucleated RBC 0.0 /100WBC 03/20/19 03:55 Sodium 138 mmol/L (136-145) 03/20/19 03:55 Corrected Sodium 141 mmol/L (136-145) 03/20/19 03:55 Potassium 4.8 mmol/L (3.5-5.1) 03/20/19 11:56 Chloride 107 mmol/L (98-107) 03/20/19 03:55 Carbon Dioxide 15.0 mmol/L (21-32) L 03/20/19 03:55 BUN 21 mg/dL (7-18) H 03/20/19 03:55 Creatinine 2.06 mg/dL (0.55-1.02) H 03/20/19 03:55 Est GFR (MDRD) Af Amer 34 (>60) L 03/20/19 03:55 Est GFR (MDRD) Non-Af 28 (>60) L 03/20/19 03:55 Glucose 225 mg/dL (65-99) H 03/20/19 03:55 POC Glucose (mg/dL) 198 mg/dL (65-99) H 03/20/19 11:44 Calcium 7.8 mg/dL (8.5-10.1) L 03/20/19 03:55 Corrected Calcium 8.8 mg/dL (8.5-10.1) 03/20/19 03:55 Total Bilirubin 0.40 mg/dL (0.2-1.0) 03/20/19 03:55 AST 9 Units/L (15-37) L 03/20/19 03:55 ALT 13 Units/L (12-78) 03/20/19 03:55 Alkaline Phosphatase 74 Units/L (46-116) 03/20/19 03:55 Creatine Kinase 68 Units/L (26-192) 03/11/19 13:26 CK-MB (CK-2) 1.8 ng/mL (0-4.0) 03/11/19 13:26 CK/CKMB % Calc 2.7 % (<4) 03/11/19 13:26 Troponin I < 0.02 ng/mL (0-1.5) 03/11/19 13:26 Total Protein 6.5 g/dL (6.4-8.2) 03/20/19 03:55 Albumin 2.8 g/dL (3.4-5.0) L 03/20/19 03:55 Globulin 3.7 g/dL (2.5-4.5) 03/20/19 03:55 Albumin/Globulin Ratio 0.8 Ratio (1.1-2.1) L 03/20/19 03:55 Triglycerides 284 mg/dL (0-150) H 03/12/19 05:02 Cholesterol 293 mg/dL (0-200) H 03/12/19 05:02 LDL Cholesterol, Calc 210 mg/dL (0-100) H 03/12/19 05:02 HDL Cholesterol 26 mg/dL (40-60) L 03/12/19 05:02 Cholesterol/HDL Ratio 11.3 (0.0-5.0) H 03/12/19 05:02 Specimen Type Catherized urine 03/13/19 20:00 Urine Color Yellow (YELLOW) 03/13/19 20:00 Urine Appearance Clear (CLEAR) 03/13/19 20:00 Urine pH 5.0 (5.0 - 8.0) 03/13/19 20:00 Ur Specific [place] 1.015 (1.000-1.030) 03/13/19 20:00 Urine Protein 4+ (NEGATIVE) 03/13/19 20:00 Urine Glucose (UA) 2+ (NEGATIVE) 03/13/19 20:00 Urine Ketones Negative (NEGATIVE) 03/13/19 20:00 Urine Occult Blood 2+ (NEGATIVE) 03/13/19 20:00 Urine Nitrite Negative (NEGATIVE) 03/13/19 20:00 Urine Bilirubin Negative (NEGATIVE) 03/13/19 20:00 Urine Urobilinogen Normal (NORMAL) 03/13/19 20:00 Ur Leukocyte Esterase Negative (NEGATIVE) 03/13/19 20:00 Urine RBC 0-2 /HPF (0-3) 03/13/19 20:00 Urine WBC 0-2 /HPF (0-5) 03/13/19 20:00 Ur Squamous Epith Cells Rare /HPF (NEGATIVE) 03/13/19 20:00 Ur Renal Epithelial Cell Few /HPF (NEGATIVE) 03/11/19 19:00 Urine Bacteria Negative /HPF (NEGATIVE) 03/13/19 20:00 Fine Granular Casts Rare /LPF (NEGATIVE) 03/13/19 20:00 Ur Culture Indicated? No/not indicated 03/13/19 20:00 - Plan (1) Hypertensive urgency Status: Acute Plan: EKG ON ADMISSION WITH CE. BP CONTROL, IV HYDRALAZINE, BLOOD CULTURES. URINE CULTURE, IV ROCEPHIN. BS CONTROL, SSI (2) CKD (chronic kidney disease) stage 3, GFR 30-59 ml/min Status: Acute (3) Uncontrolled diabetes mellitus Status: Acute Qualifiers: Diabetes mellitus type: type 2 Glycemic state: with hyperglycemia Qualified Code(s): E11.65 - Type 2 diabetes mellitus with hyperglycemia (4) Hyperkalemia Status: Acute (5) UTI (urinary tract infection) Status: Acute Qualifiers: Urinary tract infection type: site unspecified Hematuria presence: with hematuria Qualified Code(s): N39.0 - Urinary tract infection, site not specified; R31.9 - Hematuria, unspecified (6) CAD (coronary artery disease) Status: Chronic (7) GERD (gastroesophageal reflux disease) Status: Chronic (8) Constipated Status: Acute
--- NOTE | 2019-03-20 13:55 | PCM.PROG ---
Progress Note - Progress Note for Day of Date of Exam: 03/20/19 - Subjective Subjective: 38 WF ADMITTED ON 03/11 WITH HYPERTENSIVE URGENCY AND UTI, FAILING OUTPT THERAPY. PT IS CURRENTLY ON IV ROCEPHIN WITH BC AND UC COLLECTED ON ADMISSION. BP HAD IMPROVED WITH TREATMENT ON HYDRALAZINE PO. PT CO NAUSEA THIS AM. PT HAS BEEN CONSTIPATED WITH IMPROVEMENT WITH TREATMENT USING PO LAXATIVES AND RECTAL ENEMA. PT K+ 6.1 WITH IMPROVING RENAL FUNCTION, CREAT 2.06 PT BASELINE CREATNINE ~1.8. PT GIVEN PO KAYEXALATE AND ENCOURAGED ORAL H20 HYDRATION, LASIX IV X 1 DOSE AND ENCOURAGE BOWEL REGIMEN, DISCUSSED PLAN FOR D/C WHEN K+STABLE. IV MORPHINE D/C - Past Medical Family Social History Past Med/Fam/Surg Hx: No changes since H&P Allergies: Allergies No Known Drug Allergies Allergy (Verified 02/27/19 10:49) - Review of Systems ROS: No change since H&P - Vital Signs and I&O's Vital Signs: Temperature 98.7 F Pulse Rate 78 Respiratory Rate 18 Blood Pressure [Left Calf] 132/93 Blood Pressure [Left Arm] 192/92 Blood Pressure [Right Arm] 149/70 Blood Pressure 159/70 O2 Sat by Pulse Oximetry 93 Intake and Output: Intake & Output 03/18/19 03/19/19 03/20/19 03/21/19 11:59 11:59 11:59 11:59 Intake Total 3270 / 3270 3401 / 3401 2183 / 2183 Output Total 1600 / 1600 100 / 100 Balance 1670 / 1670 3401 / 3401 2083 / 208 - Physical Exam Oriented: Normal Eyes: Blurred Vision (CHRONIC) Ear: Normal Nose: Normal Respiratory: Normal, Diminished Cardiovascular: Normal, Edema : Normal Auscultation: Bowel Sounds: Normal Tenderness: Normal Skin: Decreased [place] Musculoskeletal: Right, Leg, Back:Lumbar, Deformity Psychiatric: Anxiety Affect: Anxious Speech Pattern: Clear, Appropriate - Laboratory and Diagnostics Result Diagrams: 03/20/19 03:55 03/20/19 11:56 Labs: 03/11/19 13:27 Blood Blood Culture - Final 03/11/19 13:26 Blood Blood Culture - Final 03/11/19 19:00 Urine,Clean Catch Urine Culture - Final Laboratory WBC 5.0 X10^3/uL (3.6-10.0) 03/20/19 03:55 RBC 3.30 X10^6/uL (3.5-5.4) L 03/20/19 03:55 Hgb 10.2 g/dL (12.0-16.0) L 03/20/19 03:55 Hct 29.9 % (36.0-47.0) L 03/20/19 03:55 MCV 90.6 fL (80.0-100.0) 03/20/19 03:55 MCH 30.9 pg (27.0-34.0) 03/20/19 03:55 MCHC 34.1 g/dL (33.0-35.0) 03/20/19 03:55 RDW 14.6 % (11.6-16.5) 03/20/19 03:55 Plt Count 183 X10^3/uL (150.0-450.0) 03/20/19 03:55 MPV 9.9 fL (7.4-11.0) 03/20/19 03:55 Neut % (Auto) 84.1 % (42.0-75.0) H 03/20/19 03:55 Lymph % (Auto) 11.3 % (21.0-51.0) L 03/20/19 03:55 [place] % (Auto) 2.7 % (0.0-13.0) 03/20/19 03:55 Eos % (Auto) 0.3 % (0.9-2.9) L 03/20/19 03:55 Baso % (Auto) 1.6 % (0.2-1.0) H 03/20/19 03:55 Neut # (Auto) 4.2 x10^3/uL (2.2-4.8) 03/20/19 03:55 Lymph # (Auto) 0.6 X10^3/uL (1.3-2.9) L 03/20/19 03:55 [place] # (Auto) 0.1 x10^3/uL (0.3-0.8) L 03/20/19 03:55 Eos # (Auto) 0.0 x10^3/uL (0.0-0.2) 03/20/19 03:55 Baso # (Auto) 0.1 X10^3/uL (0.0-0.1) 03/20/19 03:55 Absolute Nucleated RBC 0.0 /100WBC 03/20/19 03:55 Sodium 138 mmol/L (136-145) 03/20/19 03:55 Corrected Sodium 141 mmol/L (136-145) 03/20/19 03:55 Potassium 4.8 mmol/L (3.5-5.1) 03/20/19 11:56 Chloride 107 mmol/L (98-107) 03/20/19 03:55 Carbon Dioxide 15.0 mmol/L (21-32) L 03/20/19 03:55 BUN 21 mg/dL (7-18) H 03/20/19 03:55 Creatinine 2.06 mg/dL (0.55-1.02) H 03/20/19 03:55 Est GFR (MDRD) Af Amer 34 (>60) L 03/20/19 03:55 Est GFR (MDRD) Non-Af 28 (>60) L 03/20/19 03:55 Glucose 225 mg/dL (65-99) H 03/20/19 03:55 POC Glucose (mg/dL) 198 mg/dL (65-99) H 03/20/19 11:44 Calcium 7.8 mg/dL (8.5-10.1) L 03/20/19 03:55 Corrected Calcium 8.8 mg/dL (8.5-10.1) 03/20/19 03:55 Total Bilirubin 0.40 mg/dL (0.2-1.0) 03/20/19 03:55 AST 9 Units/L (15-37) L 03/20/19 03:55 ALT 13 Units/L (12-78) 03/20/19 03:55 Alkaline Phosphatase 74 Units/L (46-116) 03/20/19 03:55 Creatine Kinase 68 Units/L (26-192) 03/11/19 13:26 CK-MB (CK-2) 1.8 ng/mL (0-4.0) 03/11/19 13:26 CK/CKMB % Calc 2.7 % (<4) 03/11/19 13:26 Troponin I < 0.02 ng/mL (0-1.5) 03/11/19 13:26 Total Protein 6.5 g/dL (6.4-8.2) 03/20/19 03:55 Albumin 2.8 g/dL (3.4-5.0) L 03/20/19 03:55 Globulin 3.7 g/dL (2.5-4.5) 03/20/19 03:55 Albumin/Globulin Ratio 0.8 Ratio (1.1-2.1) L 03/20/19 03:55 Triglycerides 284 mg/dL (0-150) H 03/12/19 05:02 Cholesterol 293 mg/dL (0-200) H 03/12/19 05:02 LDL Cholesterol, Calc 210 mg/dL (0-100) H 03/12/19 05:02 HDL Cholesterol 26 mg/dL (40-60) L 03/12/19 05:02 Cholesterol/HDL Ratio 11.3 (0.0-5.0) H 03/12/19 05:02 Specimen Type Catherized urine 03/13/19 20:00 Urine Color Yellow (YELLOW) 03/13/19 20:00 Urine Appearance Clear (CLEAR) 03/13/19 20:00 Urine pH 5.0 (5.0 - 8.0) 03/13/19 20:00 Ur Specific [place] 1.015 (1.000-1.030) 03/13/19 20:00 Urine Protein 4+ (NEGATIVE) 03/13/19 20:00 Urine Glucose (UA) 2+ (NEGATIVE) 03/13/19 20:00 Urine Ketones Negative (NEGATIVE) 03/13/19 20:00 Urine Occult Blood 2+ (NEGATIVE) 03/13/19 20:00 Urine Nitrite Negative (NEGATIVE) 03/13/19 20:00 Urine Bilirubin Negative (NEGATIVE) 03/13/19 20:00 Urine Urobilinogen Normal (NORMAL) 03/13/19 20:00 Ur Leukocyte Esterase Negative (NEGATIVE) 03/13/19 20:00 Urine RBC 0-2 /HPF (0-3) 03/13/19 20:00 Urine WBC 0-2 /HPF (0-5) 03/13/19 20:00 Ur Squamous Epith Cells Rare /HPF (NEGATIVE) 03/13/19 20:00 Ur Renal Epithelial Cell Few /HPF (NEGATIVE) 03/11/19 19:00 Urine Bacteria Negative /HPF (NEGATIVE) 03/13/19 20:00 Fine Granular Casts Rare /LPF (NEGATIVE) 03/13/19 20:00 Ur Culture Indicated? No/not indicated 03/13/19 20:00 - Plan (1) Hypertensive urgency Status: Acute Plan: EKG ON ADMISSION WITH CE. BP CONTROL, IV HYDRALAZINE, BLOOD CULTURES. URINE CULTURE, IV ROCEPHIN. BS CONTROL, SSI (2) CKD (chronic kidney disease) stage 3, GFR 30-59 ml/min Status: Acute (3) Uncontrolled diabetes mellitus Status: Acute Qualifiers: Diabetes mellitus type: type 2 Glycemic state: with hyperglycemia Qualified Code(s): E11.65 - Type 2 diabetes mellitus with hyperglycemia (4) Hyperkalemia Status: Acute (5) UTI (urinary tract infection) Status: Acute Qualifiers: Urinary tract infection type: site unspecified Hematuria presence: with hematuria Qualified Code(s): N39.0 - Urinary tract infection, site not specified; R31.9 - Hematuria, unspecified (6) CAD (coronary artery disease) Status: Chronic (7) GERD (gastroesophageal reflux disease) Status: Chronic (8) Constipated Status: Acute
[2019-03-20] MEDS: SNACK - Diabetic Appropriate PO SCH (19:21)
[2019-03-20] MEDS: COLACE CAP 100 MG PO SCH (20:00)
[2019-03-20] MEDS: CRESTOR TAB 10 MG PO SCH (20:00)
[2019-03-21] MEDS: NS 1000 ML 1,000 ML IV SCH ×4 (03:37→16:09)
[2019-03-21 05:56] LABS: CALCIUM 7.7 mg/dL (8.5-10.1); CARBON DIOXIDE 19.6 mmol/L (21-32); CREATININE 2.32 mg/dL (0.55-1.02)
[2019-03-21] MEDS: ROCEPHIN VIAL 1 GRAM 1 G in NS 100 ML IV + SPIKE MINIBAG* 100 ML IV SCH (09:44)
[2019-03-21] MEDS: ASPIRIN PO SCH (09:45)
[2019-03-21] MEDS: TOPAMAX PO SCH ×2 (09:45→20:57)
[2019-03-21] MEDS: EFFEXOR XR 75 MG CAP PO SCH (09:45)
[2019-03-21] MEDS: PROTONIX TAB 40 MG PO SCH (09:45)
[2019-03-21] MEDS: APRESOLINE TAB 25 MG PO SCH ×2 (09:45→20:57)
[2019-03-21] MEDS: DIFLUCAN PO SCH (09:45)
[2019-03-21] MEDS: CATAPRES TAB 0.1 MG PO SCH ×2 (09:46→20:57)
[2019-03-21] MEDS: LOPRESSOR TAB 50 MG PO SCH ×2 (09:48→20:57)
[2019-03-21] MEDS ORDERED: LOPRESSOR TAB 50 MG ONE (09:48)
--- NOTE | 2019-03-21 10:00 | RAD ---
Examination: KUB History: Constipation Comparison reference 03/20/2019 Findings: There is moderate gaseous distention of scattered segments of small bowel and left colon. There is no evidence for fecal impaction, obstruction, mass formation or pathologic calcification. Impression: Nonobstructive intestinal distention. No definite fecal excess is now identified. Reported By:
[2019-03-21] MEDS: NORCO 10/325 TAB PO PRN ×2 (10:07→16:09)
--- NOTE | 2019-03-21 14:13 | PCM.PROG ---
Progress Note Subjective Subjective: 38 WF ADMITTED ON 03/11 WITH HYPERTENSIVE URGENCY AND UTI, FAILING OUTPT THERAPY. PT IS CURRENTLY ON IV ROCEPHIN WITH BC AND UC COLLECTED ON ADMISSION. BP HAD IMPROVED WITH TREATMENT ON HYDRALAZINE PO. PT CO NAUSEA THIS AM. PT HAS BEEN CONSTIPATED WITH IMPROVEMENT WITH TREATMENT USING PO LAXATIVES AND RECTAL ENEMA. PT K+ 6.1 WITH IMPROVING RENAL FUNCTION, CREAT 2.06 PT BASELINE CREATNINE ~1.8. PT GIVEN PO KAYEXALATE AND ENCOURAGED ORAL H20 HYDRATION. Pt seen this morning. She feels better today. Still has not had bowel movement despite receiving soap suds enema and laxatives provided. No acute events overnight. Past Medical Family Social History Past Med/Fam/Surg Hx: No changes since H&P Allergies: Allergies No Known Drug Allergies Allergy (Verified 02/27/19 10:49) Review of Systems ROS: No change since H&P Vital Signs and I&O's Vital Signs: Temperature 98.2 F Pulse Rate 64 Respiratory Rate 15 Blood Pressure [Left Calf] 132/93 Blood Pressure [Left Arm] 192/92 Blood Pressure [Right Arm] 149/70 Blood Pressure 191/81 O2 Sat by Pulse Oximetry 96 Intake and Output: Intake & Output 03/18/19 03/19/19 03/20/19 03/21/19 23:59 23:59 23:59 23:59 Intake Total 3373 / 3373 2811 / 2811 2272 / 2272 627 / 627 Output Total 100 / 100 850 / 850 Balance 3373 / 3373 2711 / 2711 1422 / 1422 627 / 627 Physical Exam Oriented: Normal Eyes: Blurred Vision (CHRONIC) Ear: Normal Nose: Normal Respiratory: Normal Cardiovascular: Normal Auscultation: Bowel Sounds: Normal Tenderness: Normal Skin: Normal Psychiatric: Anxiety Affect: Anxious Speech Pattern: Clear and Appropriate Laboratory and Diagnostics Result Diagrams: 03/20/19 03:55 03/21/19 05:13 Labs: 03/11/19 13:27 Blood Blood Culture - Final 03/11/19 13:26 Blood Blood Culture - Final 03/11/19 19:00 Urine,Clean Catch Urine Culture - Final Laboratory WBC 5.0 X10^3/uL (3.6-10.0) 03/20/19 03:55 RBC 3.30 X10^6/uL (3.5-5.4) L 03/20/19 03:55 Hgb 10.2 g/dL (12.0-16.0) L 03/20/19 03:55 Hct 29.9 % (36.0-47.0) L 03/20/19 03:55 MCV 90.6 fL (80.0-100.0) 03/20/19 03:55 MCH 30.9 pg (27.0-34.0) 03/20/19 03:55 MCHC 34.1 g/dL (33.0-35.0) 03/20/19 03:55 RDW 14.6 % (11.6-16.5) 03/20/19 03:55 Plt Count 183 X10^3/uL (150.0-450.0) 03/20/19 03:55 MPV 9.9 fL (7.4-11.0) 03/20/19 03:55 Neut % (Auto) 84.1 % (42.0-75.0) H 03/20/19 03:55 Lymph % (Auto) 11.3 % (21.0-51.0) L 03/20/19 03:55 [place] % (Auto) 2.7 % (0.0-13.0) 03/20/19 03:55 Eos % (Auto) 0.3 % (0.9-2.9) L 03/20/19 03:55 Baso % (Auto) 1.6 % (0.2-1.0) H 03/20/19 03:55 Neut # (Auto) 4.2 x10^3/uL (2.2-4.8) 03/20/19 03:55 Lymph # (Auto) 0.6 X10^3/uL (1.3-2.9) L 03/20/19 03:55 [place] # (Auto) 0.1 x10^3/uL (0.3-0.8) L 03/20/19 03:55 Eos # (Auto) 0.0 x10^3/uL (0.0-0.2) 03/20/19 03:55 Baso # (Auto) 0.1 X10^3/uL (0.0-0.1) 03/20/19 03:55 Absolute Nucleated RBC 0.0 /100WBC 03/20/19 03:55 Sodium 141 mmol/L (136-145) 03/21/19 05:13 Corrected Sodium 142 mmol/L (136-145) 03/21/19 05:13 Potassium 3.9 mmol/L (3.5-5.1) 03/21/19 05:13 Chloride 109 mmol/L (98-107) H 03/21/19 05:13 Carbon Dioxide 19.6 mmol/L (21-32) L 03/21/19 05:13 BUN 19 mg/dL (7-18) H 03/21/19 05:13 Creatinine 2.32 mg/dL (0.55-1.02) H 03/21/19 05:13 Est GFR (MDRD) Af Amer 30 (>60) L 03/21/19 05:13 Est GFR (MDRD) Non-Af 25 (>60) L 03/21/19 05:13 Glucose 130 mg/dL (65-99) H 03/21/19 05:13 POC Glucose (mg/dL) 147 mg/dL (65-99) H 03/21/19 11:47 Calcium 7.7 mg/dL (8.5-10.1) L 03/21/19 05:13 Corrected Calcium 8.8 mg/dL (8.5-10.1) 03/20/19 03:55 Total Bilirubin 0.40 mg/dL (0.2-1.0) 03/20/19 03:55 AST 9 Units/L (15-37) L 03/20/19 03:55 ALT 13 Units/L (12-78) 03/20/19 03:55 Alkaline Phosphatase 74 Units/L (46-116) 03/20/19 03:55 Creatine Kinase 68 Units/L (26-192) 03/11/19 13:26 CK-MB (CK-2) 1.8 ng/mL (0-4.0) 03/11/19 13:26 CK/CKMB % Calc 2.7 % (<4) 03/11/19 13:26 Troponin I < 0.02 ng/mL (0-1.5) 03/11/19 13:26 Total Protein 6.5 g/dL (6.4-8.2) 03/20/19 03:55 Albumin 2.8 g/dL (3.4-5.0) L 03/20/19 03:55 Globulin 3.7 g/dL (2.5-4.5) 03/20/19 03:55 Albumin/Globulin Ratio 0.8 Ratio (1.1-2.1) L 03/20/19 03:55 Triglycerides 284 mg/dL (0-150) H 03/12/19 05:02 Cholesterol 293 mg/dL (0-200) H 03/12/19 05:02 LDL Cholesterol, Calc 210 mg/dL (0-100) H 03/12/19 05:02 HDL Cholesterol 26 mg/dL (40-60) L 03/12/19 05:02 Cholesterol/HDL Ratio 11.3 (0.0-5.0) H 03/12/19 05:02 Specimen Type Catherized urine 03/13/19 20:00 Urine Color Yellow (YELLOW) 03/13/19 20:00 Urine Appearance Clear (CLEAR) 03/13/19 20:00 Urine pH 5.0 (5.0 - 8.0) 03/13/19 20:00 Ur Specific [place] 1.015 (1.000-1.030) 03/13/19 20:00 Urine Protein 4+ (NEGATIVE) 03/13/19 20:00 Urine Glucose (UA) 2+ (NEGATIVE) 03/13/19 20:00 Urine Ketones Negative (NEGATIVE) 03/13/19 20:00 Urine Occult Blood 2+ (NEGATIVE) 03/13/19 20:00 Urine Nitrite Negative (NEGATIVE) 03/13/19 20:00 Urine Bilirubin Negative (NEGATIVE) 03/13/19 20:00 Urine Urobilinogen Normal (NORMAL) 03/13/19 20:00 Ur Leukocyte Esterase Negative (NEGATIVE) 03/13/19 20:00 Urine RBC 0-2 /HPF (0-3) 03/13/19 20:00 Urine WBC 0-2 /HPF (0-5) 03/13/19 20:00 Ur Squamous Epith Cells Rare /HPF (NEGATIVE) 03/13/19 20:00 Ur Renal Epithelial Cell Few /HPF (NEGATIVE) 03/11/19 19:00 Urine Bacteria Negative /HPF (NEGATIVE) 03/13/19 20:00 Fine Granular Casts Rare /LPF (NEGATIVE) 03/13/19 20:00 Ur Culture Indicated? No/not indicated 03/13/19 20:00 Plan (1) Hypertensive urgency: Status: Acute Plan: Continue clonidine and hydralazine. Resume home metoprolol 50mg bid. IV hydralazine prn. (2) Hyperkalemia: Status: Acute Plan: Resolved (3) Constipated: Status: Acute Plan: Will try mineral oil enema. Continue docusate. (4) CKD (chronic kidney disease) stage 3, GFR 30-59 ml/min: Status: Acute (5) UTI (urinary tract infection): Status: Acute Qualifiers: Hematuria presence: with hematuria Urinary tract infection type: site unspecified Qualified Code(s): N39.0 - Urinary tract infection, site not specified; R31.9 - Hematuria, unspecified Plan: No growth on urinecx. Pt reports no sx. Will d/c rocephin. Continue to monitor. (6) Uncontrolled diabetes mellitus: Status: Acute Qualifiers: Diabetes mellitus type: type 2 Glycemic state: with hyperglycemia Qualified Code(s): E11.65 - Type 2 diabetes mellitus with hyperglycemia (7) CAD (coronary artery disease): Status: Chronic (8) GERD (gastroesophageal reflux disease): Status: Chronic
[2019-03-21] MEDS: APRESOLINE INJ 20 MG VIAL IVP PRN (14:47)
[2019-03-21] MEDS: SNACK - Diabetic Appropriate PO SCH (19:19)
[2019-03-21] MEDS: HumuLIN R SC PRN (20:49)
[2019-03-21] MEDS: MILK OF MAGNESIA PO SCH (20:56)
[2019-03-21] MEDS: COLACE CAP 100 MG PO SCH (20:57)
[2019-03-21] MEDS: CRESTOR TAB 10 MG PO SCH (20:57)
[2019-03-22] MEDS: NS 1000 ML 1,000 ML IV SCH ×5 (02:00→23:02)
[2019-03-22] MEDS: NORCO 10/325 TAB PO PRN ×3 (04:21→21:14)
[2019-03-22] MEDS: HumuLIN R SC PRN ×3 (06:35→21:06)
[2019-03-22 08:44] LABS: CALCIUM 7.6 mg/dL (8.5-10.1); CARBON DIOXIDE 22.1 mmol/L (21-32); CREATININE 2.59 mg/dL (0.55-1.02)
[2019-03-22] MEDS: APRESOLINE TAB 25 MG PO SCH ×2 (09:54→21:10)
[2019-03-22] MEDS: TOPAMAX PO SCH ×2 (09:54→21:10)
[2019-03-22] MEDS: EFFEXOR XR 75 MG CAP PO SCH (09:55)
[2019-03-22] MEDS: ASPIRIN PO SCH (09:55)
[2019-03-22] MEDS: PROTONIX TAB 40 MG PO SCH (09:56)
[2019-03-22] MEDS: CATAPRES TAB 0.1 MG PO SCH ×2 (09:56→21:11)
[2019-03-22] MEDS: LOPRESSOR TAB 50 MG PO SCH ×2 (10:01→21:10)
[2019-03-22] MEDS: MILK OF MAGNESIA PO SCH ×2 (10:02→21:08)
--- NOTE | 2019-03-22 12:14 | PCM.PROG ---
Progress Note Progress Note for Day of Date of Exam: 03/22/19 Subjective Subjective: 38 WF ADMITTED ON 03/11 WITH HYPERTENSIVE URGENCY AND UTI, FAILING OUTPT THERAPY. PT IS CURRENTLY ON IV ROCEPHIN WITH BC AND UC COLLECTED ON ADMISSION. BP HAD IMPROVED WITH TREATMENT ON HYDRALAZINE PO. PT CO NAUSEA THIS AM. PT HAS BEEN CONSTIPATED WITH IMPROVEMENT WITH TREATMENT USING PO LAXATIVES AND RECTAL ENEMA. PT K+ 6.1 WITH IMPROVING RENAL FUNCTION, CREAT 2.06 PT BASELINE CREATNINE ~1.8. PT GIVEN PO KAYEXALATE AND ENCOURAGED ORAL H20 HYDRATION. Pt seen this morning. No acute events overnight. KUB yesterday showed no obstruction or stool impaction. Patient has not had any BM. BP improved with metoprolol. Creatinine trending up, patient reports decreased appetite. Past Medical Family Social History Past Med/Fam/Surg Hx: No changes since H&P Allergies: Allergies No Known Drug Allergies Allergy (Verified 02/27/19 10:49) Review of Systems ROS: No change since H&P Vital Signs and I&O's Vital Signs: Temperature 97.7 F Pulse Rate 52 Respiratory Rate 16 Blood Pressure [Left Calf] 132/93 Blood Pressure [Left Arm] 192/92 Blood Pressure [Right Arm] 149/70 Blood Pressure 178/77 O2 Sat by Pulse Oximetry 97 Intake and Output: Intake & Output 03/19/19 03/20/19 03/21/19 03/22/19 23:59 23:59 23:59 23:59 Intake Total 2811 / 2811 2272 / 2272 1734 / 1734 832 / 832 Output Total 100 / 100 850 / 850 1200 / 1200 0 / 0 Balance 2711 / 2711 1422 / 1422 534 / 534 832 / 832 Physical Exam Oriented: Normal Eyes: Blurred Vision (CHRONIC) Ear: Normal Nose: Normal Respiratory: Normal Cardiovascular: Normal : Normal Auscultation: Bowel Sounds: Normal Tenderness: Normal Skin: Normal Musculoskeletal: Right, Leg, Back:Lumbar and Deformity Psychiatric: Anxiety Affect: Anxious Speech Pattern: Clear and Appropriate Laboratory and Diagnostics Result Diagrams: 03/20/19 03:55 03/22/19 08:25 Labs: 03/11/19 13:27 Blood Blood Culture - Final 03/11/19 13:26 Blood Blood Culture - Final 03/11/19 19:00 Urine,Clean Catch Urine Culture - Final Laboratory WBC 5.0 X10^3/uL (3.6-10.0) 03/20/19 03:55 RBC 3.30 X10^6/uL (3.5-5.4) L 03/20/19 03:55 Hgb 10.2 g/dL (12.0-16.0) L 03/20/19 03:55 Hct 29.9 % (36.0-47.0) L 03/20/19 03:55 MCV 90.6 fL (80.0-100.0) 03/20/19 03:55 MCH 30.9 pg (27.0-34.0) 03/20/19 03:55 MCHC 34.1 g/dL (33.0-35.0) 03/20/19 03:55 RDW 14.6 % (11.6-16.5) 03/20/19 03:55 Plt Count 183 X10^3/uL (150.0-450.0) 03/20/19 03:55 MPV 9.9 fL (7.4-11.0) 03/20/19 03:55 Neut % (Auto) 84.1 % (42.0-75.0) H 03/20/19 03:55 Lymph % (Auto) 11.3 % (21.0-51.0) L 03/20/19 03:55 [place] % (Auto) 2.7 % (0.0-13.0) 03/20/19 03:55 Eos % (Auto) 0.3 % (0.9-2.9) L 03/20/19 03:55 Baso % (Auto) 1.6 % (0.2-1.0) H 03/20/19 03:55 Neut # (Auto) 4.2 x10^3/uL (2.2-4.8) 03/20/19 03:55 Lymph # (Auto) 0.6 X10^3/uL (1.3-2.9) L 03/20/19 03:55 [place] # (Auto) 0.1 x10^3/uL (0.3-0.8) L 03/20/19 03:55 Eos # (Auto) 0.0 x10^3/uL (0.0-0.2) 03/20/19 03:55 Baso # (Auto) 0.1 X10^3/uL (0.0-0.1) 03/20/19 03:55 Absolute Nucleated RBC 0.0 /100WBC 03/20/19 03:55 Sodium 142 mmol/L (136-145) 03/22/19 08:25 Corrected Sodium 145 mmol/L (136-145) 03/22/19 08:25 Potassium 3.9 mmol/L (3.5-5.1) 03/22/19 08:25 Chloride 110 mmol/L (98-107) H 03/22/19 08:25 Carbon Dioxide 22.1 mmol/L (21-32) 03/22/19 08:25 BUN 20 mg/dL (7-18) H 03/22/19 08:25 Creatinine 2.59 mg/dL (0.55-1.02) H 03/22/19 08:25 Est GFR (MDRD) Af Amer 26 (>60) L 03/22/19 08:25 Est GFR (MDRD) Non-Af 22 (>60) L 03/22/19 08:25 Glucose 240 mg/dL (65-99) H 03/22/19 08:25 POC Glucose (mg/dL) 218 mg/dL (65-99) H 03/22/19 10:54 Calcium 7.6 mg/dL (8.5-10.1) L 03/22/19 08:25 Corrected Calcium 8.8 mg/dL (8.5-10.1) 03/20/19 03:55 Total Bilirubin 0.40 mg/dL (0.2-1.0) 03/20/19 03:55 AST 9 Units/L (15-37) L 03/20/19 03:55 ALT 13 Units/L (12-78) 03/20/19 03:55 Alkaline Phosphatase 74 Units/L (46-116) 03/20/19 03:55 Creatine Kinase 68 Units/L (26-192) 03/11/19 13:26 CK-MB (CK-2) 1.8 ng/mL (0-4.0) 03/11/19 13:26 CK/CKMB % Calc 2.7 % (<4) 03/11/19 13:26 Troponin I < 0.02 ng/mL (0-1.5) 03/11/19 13:26 Total Protein 6.5 g/dL (6.4-8.2) 03/20/19 03:55 Albumin 2.8 g/dL (3.4-5.0) L 03/20/19 03:55 Globulin 3.7 g/dL (2.5-4.5) 03/20/19 03:55 Albumin/Globulin Ratio 0.8 Ratio (1.1-2.1) L 03/20/19 03:55 Triglycerides 284 mg/dL (0-150) H 03/12/19 05:02 Cholesterol 293 mg/dL (0-200) H 03/12/19 05:02 LDL Cholesterol, Calc 210 mg/dL (0-100) H 03/12/19 05:02 HDL Cholesterol 26 mg/dL (40-60) L 03/12/19 05:02 Cholesterol/HDL Ratio 11.3 (0.0-5.0) H 03/12/19 05:02 Specimen Type Catherized urine 03/13/19 20:00 Urine Color Yellow (YELLOW) 03/13/19 20:00 Urine Appearance Clear (CLEAR) 03/13/19 20:00 Urine pH 5.0 (5.0 - 8.0) 03/13/19 20:00 Ur Specific [place] 1.015 (1.000-1.030) 03/13/19 20:00 Urine Protein 4+ (NEGATIVE) 03/13/19 20:00 Urine Glucose (UA) 2+ (NEGATIVE) 03/13/19 20:00 Urine Ketones Negative (NEGATIVE) 03/13/19 20:00 Urine Occult Blood 2+ (NEGATIVE) 03/13/19 20:00 Urine Nitrite Negative (NEGATIVE) 03/13/19 20:00 Urine Bilirubin Negative (NEGATIVE) 03/13/19 20:00 Urine Urobilinogen Normal (NORMAL) 03/13/19 20:00 Ur Leukocyte Esterase Negative (NEGATIVE) 03/13/19 20:00 Urine RBC 0-2 /HPF (0-3) 03/13/19 20:00 Urine WBC 0-2 /HPF (0-5) 03/13/19 20:00 Ur Squamous Epith Cells Rare /HPF (NEGATIVE) 03/13/19 20:00 Ur Renal Epithelial Cell Few /HPF (NEGATIVE) 03/11/19 19:00 Urine Bacteria Negative /HPF (NEGATIVE) 03/13/19 20:00 Fine Granular Casts Rare /LPF (NEGATIVE) 03/13/19 20:00 Ur Culture Indicated? No/not indicated 03/13/19 20:00 Plan (1) Hypertensive urgency: Status: Acute Plan: Continue clonidine and hydralazine. Continue metoprolol 50mg bid. IV hydralazine prn. (2) Hyperkalemia: Status: Acute Plan: Resolved (3) Constipated: Status: Acute Plan: Will try mineral oil enema. Continue docusate. (4) CKD (chronic kidney disease) stage 3, GFR 30-59 ml/min: Status: Acute Plan: slightly trending up, continue to monitor - gentle hydration due to poor appetite (5) UTI (urinary tract infection): Status: Acute Qualifiers: Hematuria presence: with hematuria Urinary tract infection type: site unspecified Qualified Code(s): N39.0 - Urinary tract infection, site not specified; R31.9 - Hematuria, unspecified Plan: No growth on urinecx. Pt reports no sx. Will d/c rocephin. Continue to monitor. (6) Uncontrolled diabetes mellitus: Status: Acute Qualifiers: Diabetes mellitus type: type 2 Glycemic state: with hyperglycemia Qualified Code(s): E11.65 - Type 2 diabetes mellitus with hyperglycemia (7) CAD (coronary artery disease): Status: Chronic (8) GERD (gastroesophageal reflux disease): Status: Chronic
[2019-03-22] MEDS: SNACK - Diabetic Appropriate PO SCH (19:48)
[2019-03-22] MEDS: COLACE CAP 100 MG PO SCH (21:10)
[2019-03-22] MEDS: CRESTOR TAB 10 MG PO SCH (21:10)
[2019-03-23] MEDS: NS 1000 ML 1,000 ML IV SCH (03:52)
[2019-03-23] MEDS: NORCO 10/325 TAB PO PRN (03:56)
[2019-03-23 05:48] LABS: BASOPHILS # (AUTO) 0.1 X10^3/uL (0.0-0.1); BASOPHILS % (AUTO) 2.6 % (0.2-1.0); EOSINOPHILS # (AUTO) 0.2 x10^3/uL (0.0-0.2); EOSINOPHILS % (AUTO) 4.6 % (0.9-2.9); HEMATOCRIT 27.5 % (36.0-47.0); HEMOGLOBIN 9.2 g/dL (12.0-16.0); LYMPHOCYTES # (AUTO) 1.4 X10^3/uL (1.3-2.9); LYMPHOCYTES % (AUTO) 37.5 % (21.0-51.0); MEAN CORPUSCULAR HEMOGLOBIN 30.7 pg (27.0-34.0); MEAN CORPUSCULAR HGB CONC 33.5 g/dL (33.0-35.0); MEAN CORPUSCULAR VOLUME 91.6 fL (80.0-100.0); MEAN PLATELET VOLUME 10.1 fL (7.4-11.0); MONOCYTES # (AUTO) 0.3 x10^3/uL (0.3-0.8); MONOCYTES % (AUTO) 8.1 % (0.0-13.0); NEUTROPHILS # (AUTO) 1.7 x10^3/uL (2.2-4.8); NEUTROPHILS % (AUTO) 47.2 % (42.0-75.0); PLATELET COUNT 137 X10^3/uL (150.0-450.0); RED CELL DISTRIBUTION WIDTH 14.7 % (11.6-16.5); WHITE BLOOD COUNT 3.7 X10^3/uL (3.6-10.0)
[2019-03-23 05:52] LABS: CALCIUM 7.7 mg/dL (8.5-10.1); CARBON DIOXIDE 23.3 mmol/L (21-32); CREATININE 2.29 mg/dL (0.55-1.02)
[2019-03-23] MEDS: HumuLIN R SC PRN (05:52)
[2019-03-23] MEDS: CATAPRES TAB 0.1 MG PO SCH (09:25)
[2019-03-23] MEDS: EFFEXOR XR 75 MG CAP PO SCH (09:25)
[2019-03-23] MEDS: TOPAMAX PO SCH (09:25)
[2019-03-23] MEDS: PROTONIX TAB 40 MG PO SCH (09:25)
[2019-03-23] MEDS: LOPRESSOR TAB 50 MG PO SCH (09:25)
[2019-03-23] MEDS: MILK OF MAGNESIA PO SCH (09:25)
[2019-03-23] MEDS: APRESOLINE TAB 25 MG PO SCH (09:26)
[2019-03-23] MEDS: ASPIRIN PO SCH (09:26)
[2019-03-23 10:50] VITALS: BP 164/90
== END 2019-03-23 11:58 | disposition home or self-care (01) | DRG 305 ==
LOC: ICU 12:55
PROVIDERS: ADMIT Internal Medicine; ATTEND Internal Medicine
DX: R31.9 Hematuria, unspecified; I16.0 Hypertensive urgency; K59.09 Other constipation; N39.0 Urinary tract infection, site not specified; R51 Headache; N18.3 Chronic kidney disease, stage 3 (moderate); I25.10 Atherosclerotic heart disease of native coronary artery without angina pectoris; R94.31 Abnormal electrocardiogram [ECG] [EKG]; E11.22 Type 2 diabetes mellitus with diabetic chronic kidney disease; E11.65 Type 2 diabetes mellitus with hyperglycemia; I12.9 Hypertensive chronic kidney disease with stage 1 through stage 4 chronic kidney disease, or unspecified chronic kidney disease; R26.89 Other abnormalities of gait and mobility; K21.9 Gastro-esophageal reflux disease without esophagitis
CPT/HCPCS: 36415; 71010; 71045; 74000; 74018; 80048; 80053; 80061; 81001; 82550; 82553; 84132; 84484; 85025; 87040; 87086; 93005; 97110; 97112; 97162; 97166; 97530; 97535; A4222; J0360; J0696; J1815; J1940; J2270; J2405; J2550; J7030; J7050

== ENCOUNTER 2019-05-01 04:29 | Inpatient (IN) ==
[2019-05-01] MEDS ORDERED: SOLU-Medrol 125 MG VIAL IVP ONE (04:49)
[2019-05-01] MEDS ORDERED: PROVENTIL NEB TX 0.083% 2.5MG/ 3ML NEB ONE (04:49)
--- NOTE | 2019-05-01 04:52 | DR.SOBA ---
HPI - Time Seen Time seen: 04:48 - HPI Comment HPI Comment: 38 y/o dm nonsmoker with cough and wheezing x 3 days which acutely worsened this morning causing significant sob and ems called; believes she got "it" from her son; fever/chills and generally not feeling well. - Complaints Chief Complaint Doctors Comments: "I can't breathe". - Reviewed Nurses Notes Reviewed: Yes PMH - PMH Past Medical History: Hypertension, Diabetes, Renal Disease, Cirrhosis, Anxiety, GERD, Arthritis, Migraines, Headaches, CHF Past Surgical History: Yes Surgical History: CABG/Valve Surgery, Cholecystectomy, , Ortho Surgery, Other - Family History Family Medical History: Diabetes Mellitus, Cancer, [place], Sudden Cardiac , Hypertension - Social History Do you use any recreational Drugs:: No - infectious screening Isolation: Standard ROS - Review of Systems Constitutional: See HPI, Fever Respiratoy: See HPI Cardiovascular: No Symptoms Reported Gastrointestinal/Abdominal: No Symptoms Reported Genitourinary: No Symptoms Reported Neurological: No Symptoms Reported Musculoskeletal: Other (amputations) Integumentary: No Symptoms Reported Hematologic/Lymphatic: No Symptoms Reported Endocrine: See HPI Psychiatric: Anxiety PE - General Limitations: Physical Limitation General Appearance: Alert, Anxious - Head Head Exam: Normal Inspection, Atraumatic - Neck Neck Exam: Normal Inspection - Chest Chest Inspection: Normal Inspection, Symmetric Chest Wall Rise - Respiratory Respiratory Exam: Bilateral Wheezing, Bilateral Decreased Breath Sounds - Cardiovascular Cardiovascular Exam: Regular Rate, Normal Rhythm - Abdominal Exam Abdominal Exam: Normal Inspection, Normal Bowel Sounds, Soft - Extremities Extremities Exam: Other (rt bka, lt aka) - Neurologic Neurological Exam: Alert, Oriented X3 - Psychiatric Psychiatric Exam: Anxious - Skin Skin Exam: Warm, Dry - Vital Signs Vitals: Temperature 99.5 F Pulse Rate [Right Brachial] 80 Pulse Rate 85 Respiratory Rate 20 Blood Pressure [Left Calf] 132/93 Blood Pressure [Left Arm] 157/74 Blood Pressure [Right Arm] 158/69 Blood Pressure 126/61 O2 Sat by Pulse Oximetry 91 Course - Reevaluation 1st: Unchanged ("I still can't breathe"; lungs clearer but still w/scattered wheezes, sat 93% on O2) - Consultation Called: 06:20 Call Returned: 06:23 (Dr Andrews accepted admission) ROR - Labs Reviewed Laboratory Results Reviewed?: Yes Result Diagrams: 05/01/19 05:00 05/01/19 05:00 - Other Results Comments: IMPRESSION: 1. Cardiomegaly with increased central interstitial opacities and peribronchial. thickening needs clinical correlation as this suggests either acute bronchitis. or interstitial edema. - XRAY XRAY Interpreted by: Radiologist - Labs Reviewed Laboratory: WBC 6.4 X10^3/uL (3.6-10.0) 05/01/19 05:00 RBC 2.98 X10^6/uL (3.5-5.4) L 05/01/19 05:00 Hgb 9.1 g/dL (12.0-16.0) L 05/01/19 05:00 Hct 27.6 % (36.0-47.0) L 05/01/19 05:00 MCV 92.7 fL (80.0-100.0) 05/01/19 05:00 MCH 30.6 pg (27.0-34.0) 05/01/19 05:00 MCHC 33.0 g/dL (33.0-35.0) 05/01/19 05:00 RDW 15.1 % (11.6-16.5) 05/01/19 05:00 Plt Count 163 X10^3/uL (150.0-450.0) 05/01/19 05:00 MPV 10.1 fL (7.4-11.0) 05/01/19 05:00 Neut % (Auto) 65.5 % (42.0-75.0) 05/01/19 05:00 Lymph % (Auto) 21.0 % (21.0-51.0) 05/01/19 05:00 [place] % (Auto) 10.4 % (0.0-13.0) 05/01/19 05:00 Eos % (Auto) 2.0 % (0.9-2.9) 05/01/19 05:00 Baso % (Auto) 1.1 % (0.2-1.0) H 05/01/19 05:00 Neut # (Auto) 4.2 x10^3/uL (2.2-4.8) 05/01/19 05:00 Lymph # (Auto) 1.4 X10^3/uL (1.3-2.9) 05/01/19 05:00 [place] # (Auto) 0.7 x10^3/uL (0.3-0.8) 05/01/19 05:00 Eos # (Auto) 0.1 x10^3/uL (0.0-0.2) 05/01/19 05:00 Baso # (Auto) 0.1 X10^3/uL (0.0-0.1) 05/01/19 05:00 Absolute Nucleated RBC 0.1 /100WBC 05/01/19 05:00 Sample Site Lbra 05/01/19 05:08 ABG pH 7.300 (7.35-7.45) L 05/01/19 05:08 ABG pCO2 36.0 mmHg (35.0-45.0) 05/01/19 05:08 ABG pO2 67.0 mmHg (80.0-100.0) L 05/01/19 05:08 ABG HCO3 17.7 mmol/L (22-26) L* 05/01/19 05:08 ABG O2 Saturation 91.0 % (90-100) 05/01/19 05:08 ABG Base Excess -8.0 mmol/L (-2.0-2.0) L 05/01/19 05:08 Nathan Test Na 05/01/19 05:08 A-a Gradient 88.0 mmHg 05/01/19 05:08 FiO2 28.0 05/01/19 05:08 Blood Gas Comments Jona abg well-mtf 05/01/19 05:08 Sodium 132 mmol/L (136-145) L 05/01/19 05:00 Corrected Sodium 140 mmol/L (136-145) 05/01/19 05:00 Potassium 5.1 mmol/L (3.5-5.1) 05/01/19 05:00 Chloride 101 mmol/L (98-107) 05/01/19 05:00 Carbon Dioxide 16.9 mmol/L (21-32) L 05/01/19 05:00 BUN 102 mg/dL (7-18) H 05/01/19 05:00 Creatinine 3.61 mg/dL (0.55-1.02) H 05/01/19 05:00 Est GFR (MDRD) Af Amer 18 (>60) L 05/01/19 05:00 Est GFR (MDRD) Non-Af 15 (>60) L 05/01/19 05:00 Glucose 449 mg/dL (65-99) H 05/01/19 05:00 Calcium 7.8 mg/dL (8.5-10.1) L 05/01/19 05:00 Corrected Calcium 8.8 mg/dL (8.5-10.1) 05/01/19 05:00 Total Bilirubin 0.20 mg/dL (0.2-1.0) 05/01/19 05:00 AST 170 Units/L (15-37) H 05/01/19 05:00 ALT 146 Units/L (12-78) H 05/01/19 05:00 Alkaline Phosphatase 100 Units/L (46-116) 05/01/19 05:00 B-Natriuretic Peptide 1460 pg/mL (0-79) H* 05/01/19 05:00 Total Protein 6.8 g/dL (6.4-8.2) 05/01/19 05:00 Albumin 2.8 g/dL (3.4-5.0) L 05/01/19 05:00 Globulin 4.0 g/dL (2.5-4.5) 05/01/19 05:00 Albumin/Globulin Ratio 0.7 Ratio (1.1-2.1) L 05/01/19 05:00 Specimen Type Catherized urine 05/01/19 06:22 Urine Color Yellow (YELLOW) 05/01/19 06:22 Urine Appearance Cloudy (CLEAR) 05/01/19 06:22 Urine pH 5.0 (5.0 - 8.0) 05/01/19 06:22 Ur Specific [place] 1.020 (1.000-1.030) 05/01/19 06:22 Urine Protein 4+ (NEGATIVE) 05/01/19 06:22 Urine Glucose (UA) 4+ (NEGATIVE) 05/01/19 06:22 Urine Ketones Negative (NEGATIVE) 05/01/19 06:22 Urine Occult Blood 2+ (NEGATIVE) 05/01/19 06:22 Urine Nitrite Negative (NEGATIVE) 05/01/19 06:22 Urine Bilirubin Negative (NEGATIVE) 05/01/19 06:22 Urine Urobilinogen Normal (NORMAL) 05/01/19 06:22 Ur Leukocyte Esterase Negative (NEGATIVE) 11/08/19 06:22 Influenza Type A (PCR) Negative (NEGATIVE) 05/01/19 04:56 Influenza Type B (PCR) Negative (NEGATIVE) 05/01/19 04:56 Opioid - Opioid Risk Tool Age ([place] box if 16-45): No History of Preadolescent Sexual Abuse: No Total: 0 Total Score Risk Category: Low Risk - Diagnosis Discharge Problem: Bronchitis, Mild congestive heart failure, Hypoxia, Respiratory acidosis, Hyponatremia, Elevated LFTs, CKD (chronic kidney disease) stage 4, GFR 15-29 ml/min - Discharge Plan Disposition: ADMITTED INPATIENT Condition: Stable - Follow ups/Referrals Follow ups/Referrals: NFD,None [Primary Care Provider] - 3 days - Instructions
[2019-05-01] MEDS ORDERED: SOLU-Medrol 125 MG VIAL ONE (04:54)
[2019-05-01] MEDS ORDERED: DUONEB 0.5 MG/3 MG ONE (04:56)
[2019-05-01 05:17] LABS: ABG HCO3 17.7 mmol/L (22-26)
--- NOTE | 2019-05-01 05:21 | RAD ---
AP Chest Indication: Hypertension Comparison: 03/13/2019 Findings: The trachea is midline. Heart size is enlarged with previous CABG. Increased central peribronchial thickening and interstitial opacities. No focal airspace opacity, pleural effusion or pneumothorax. IMPRESSION: 1. Cardiomegaly with increased central interstitial opacities and peribronchial thickening needs clinical correlation as this suggests either acute bronchitis or interstitial edema. Reported By:
[2019-05-01 05:22] LABS: ALBUMIN 2.8 g/dL (3.4-5.0); BASOPHILS # (AUTO) 0.1 X10^3/uL (0.0-0.1); BASOPHILS % (AUTO) 1.1 % (0.2-1.0); CALCIUM 7.8 mg/dL (8.5-10.1); CARBON DIOXIDE 16.9 mmol/L (21-32); COR CA(FOR HYPOALB) 8.8 mg/dL (8.5-10.1); CREATININE 3.61 mg/dL (0.55-1.02); EOSINOPHILS # (AUTO) 0.1 x10^3/uL (0.0-0.2); HEMATOCRIT 27.6 % (36.0-47.0); HEMOGLOBIN 9.1 g/dL (12.0-16.0); LYMPHOCYTES # (AUTO) 1.4 X10^3/uL (1.3-2.9); MEAN CORPUSCULAR HEMOGLOBIN 30.6 pg (27.0-34.0); MEAN CORPUSCULAR VOLUME 92.7 fL (80.0-100.0); MEAN PLATELET VOLUME 10.1 fL (7.4-11.0); MONOCYTES # (AUTO) 0.7 x10^3/uL (0.3-0.8); MONOCYTES % (AUTO) 10.4 % (0.0-13.0); NEUTROPHILS # (AUTO) 4.2 x10^3/uL (2.2-4.8); NEUTROPHILS % (AUTO) 65.5 % (42.0-75.0); PLATELET COUNT 163 X10^3/uL (150.0-450.0); RED BLOOD COUNT 2.98 X10^6/uL (3.5-5.4); RED CELL DISTRIBUTION WIDTH 15.1 % (11.6-16.5); TOTAL PROTEIN 6.8 g/dL (6.4-8.2); WHITE BLOOD COUNT 6.4 X10^3/uL (3.6-10.0)
[2019-05-01] MEDS: NORCO 5/325 MG TAB PO PRN ×5 (05:39→23:10)
[2019-05-01] MEDS ORDERED: ROCEPHIN VIAL 1 GRAM 1 G in NS 100 ML IV + SPIKE MINIBAG* 100 ML IV ONE (06:11)
[2019-05-01] MEDS ORDERED: ZOFRAN INJ 4 MG VIAL IVP PRN (06:28)
[2019-05-01] MEDS ORDERED: TESSALON PERLES PO PRN (06:28)
[2019-05-01] MEDS ORDERED: TYLENOL 325 MG TAB PO PRN (06:28)
[2019-05-01] MEDS ORDERED: ROCEPHIN VIAL 1 GRAM IV ONE (06:30)
[2019-05-01] MEDS ORDERED: ZITHROMAX INJ 500 MG VIAL IV ONE (06:32)
[2019-05-01] MEDS ORDERED: ROCEPHIN VIAL 1 GRAM ONE (06:33)
[2019-05-01] MEDS ORDERED: NS 250 ML IV 250 ML IV ONE (06:33)
[2019-05-01 06:39] LABS: BILIRUBIN,URINE NEGATIVE (NEGATIVE); BLOOD/HEMOGLOBIN,URINE 2+ (NEGATIVE); GLUCOSE, URINE 4+ (NEGATIVE); KETONES,URINE NEGATIVE (NEGATIVE); LEUKOCYTE ESTERASE ,URINE NEGATIVE (NEGATIVE); NITRITES,URINE NEGATIVE (NEGATIVE); PROTEIN,URINE 4+ (NEGATIVE); UROBILINOGEN,URINE NORMAL (NORMAL)
[2019-05-01 06:41] LABS: APPEARANCE,URINE CLOUDY (CLEAR); COLOR,URINE YELLOW (YELLOW)
[2019-05-01] MEDS: NS 1000 ML 1,000 ML IV SCH ×2 (06:42→21:00)
[2019-05-01] MEDS: ZITHROMAX INJ 500 MG VIAL 500 MG in NS 250 ML IV 250 ML IV SCH ×2 (06:43→09:58)
[2019-05-01 06:55] LABS: AMORPHOUS SEDIMENT,UR 3+ /HPF (NEGATIVE); BACTERIA,URINE NEGATIVE /HPF (NEGATIVE); RBC,URINE 0-2 /HPF (0-3); SQUAMOUS EPITHELIAL CELL,UR RARE /HPF (NEGATIVE)
[2019-05-01] MEDS ORDERED: HumuLIN R ONE (08:42)
[2019-05-01] MEDS ORDERED: HumuLIN R IV ONE (08:48)
[2019-05-01 11:19] VITALS: BMI 27.4
[2019-05-01] MEDS: HumuLIN R SUBCUT PRN (12:41)
[2019-05-01] MEDS ORDERED: LEVEMIR SC ONE (13:21)
[2019-05-01] MEDS ORDERED: TUSSIONEX PENNKINETIC SUSP PO PRN (13:21)
[2019-05-01] MEDS: ROBITUSSIN DM PO SCH ×3 (14:49→22:05)
--- NOTE | 2019-05-01 15:42 | DR.H&P ---
H&P - History & Physical for Day of: H&P Date: 05/01/19 - Chief Complaint Chief Complaint: SOB - History of Present Illness History of Present Illness: PT IS 38 WF ER ADMISSION AFTER PRESENTING CO dm nonsmoker with cough and wheezing x 3 days which acutely worsened this morning causing significant sob and ems called; believes she got "it" from her son; fever/chills and generally not feeling well. PT HAD ELEVATED BLOOD SUGAR IN ER WITH SERUM ACETONE NEGATIVE, PT HAD ABG PO2 67. PT GIVEN SOLU MEDROL IV IN ER, ADMITTED TO ICU FOR TREATMENT OF ACUTE ILLNESS. - Past Medical History Past Medical History: Anxiety, Arthritis, Cirrhosis, CHF, Diabetes, Migraines, GERD, Headaches, Hypertension, Renal Disease, Seizures - Past Surgical History Surgical History: , CABG/Valve Surgery, Ortho Surgery, Other - Family History Family Medical History: Diabetes Mellitus, Cancer, [place] - Social History Does patient currently use any type of tobacco product: No Have you used tobacco products in the last 12 months: No Type of Tobacco Use: None Does any household member use tobacco: No Alcohol Use: None Drug Use: None - Medications Home Medications: No Known Drug Allergies Allergy (Verified 02/27/19 10:49) - Review of Systems Constitutional: Fever, Chills, Weakness Eyes: No Symptoms Reported ENT: Throat Pain Respiratory: Cough, Shortness of Breath, SOB with Excertion, Wheezing Cardiovascular: No Symptoms Reported Gastrointestinal: denies: Nausea, Vomiting, Diarrhea Genitourinary: No Symptoms Reported Musculoskeletal: Shoulder Pain, Back Pain Skin: No Symptoms Reported Neurological: Weakness - Physical Exam Vital Signs: Temperature 99.2 F Pulse Rate [Right Brachial] 63 Pulse Rate 65 Respiratory Rate 23 Blood Pressure [Left Calf] 132/93 Blood Pressure [Left Arm] 147/75 Blood Pressure [Right Arm] 164/77 Blood Pressure 155/74 O2 Sat by Pulse Oximetry 95 Oriented: Normal Eyes: Blurred Vision (CHRONIC) Ear: Normal Nose: Discharge Throat: Red, Exudate Respiratory: Wheezes Throughout, RLL Diminished, LLL Diminished Cardiovascular: Tachycardia. negative: Edema : Normal Auscultation: Bowel Sounds: Normal Palpation: Normal Tenderness: Normal Skin: Normal Musculoskeletal: Left, Shoulder, Back:Thoracic, Deformity Psychiatric: Anxiety Affect: Anxious Speech Pattern: Clear, Appropriate - Assessment/Plan (1) SOB (shortness of breath) Status: Acute Plan: ADMIT, ICU PNEUMONIA PROTOCOL. REPEAT ABG, IV HYDRATION, IV ATBX THERAPY. BS CONTROL, SSI AND RESUME LEVEMIR. REPEAT SERUM ACETONE, CXR ON ADMISSION. BLOOD AND SPUTUM CULTURE, VERIFY HOME MEDICATION, BP CONTROL. STRICT I&OS (2) Bronchitis Status: Acute (3) CKD (chronic kidney disease) stage 4, GFR 15-29 ml/min Status: Chronic (4) CAD (coronary artery disease) Status: Chronic (5) Diabetes mellitus type 1 Qualifiers: Status: Chronic (6) GERD (gastroesophageal reflux disease) Status: Chronic (7) Hypertension Status: Chronic - Allergies Allergies/Adverse Reactions: Allergies Allergy/AdvReac Type Severity Reaction Status Date / Time No Known Drug Allergies Allergy Verified 02/27/19 10:49
[2019-05-01] MEDS: DUONEB 0.5 MG/3 MG NEB SCH ×3 (15:49→21:16)
[2019-05-01] MEDS ORDERED: APRESOLINE TAB 25 MG ONE (16:30)
[2019-05-01] MEDS ORDERED: SODIUM BICARBONATE TAB 650MG PO ONE (16:32)
[2019-05-01] MEDS: APRESOLINE TAB 25 MG PO SCH ×2 (16:35→22:05)
[2019-05-01] MEDS: SODIUM BICARBONATE TAB 650MG PO SCH ×2 (16:35→22:05)
[2019-05-01] MEDS ORDERED: NS 100 ML IV 100 ML IV ONE ×2 (16:59→17:31)
[2019-05-01] MEDS ORDERED: SNACK - Diabetic Appropriate PO SCH ×5 (20:00)
[2019-05-01] MEDS: SNACK - Diabetic Appropriate PO SCH (20:35)
[2019-05-01] MEDS ORDERED: LEVEMIR SC SCH (21:00)
[2019-05-01] MEDS: LOPRESSOR TAB 50 MG PO SCH (22:05)
[2019-05-02] MEDS: NORCO 5/325 MG TAB PO PRN ×4 (05:20→22:29)
[2019-05-02] MEDS: APRESOLINE TAB 25 MG PO SCH ×3 (05:44→21:18)
[2019-05-02] MEDS ORDERED: ZITHROMAX INJ 500 MG VIAL 250 MG in NS 250 ML IV 250 ML IV ONE (06:28)
[2019-05-02] MEDS: ROCEPHIN VIAL 1 GRAM 1 G in NS 100 ML IV + SPIKE MINIBAG* 100 ML IV SCH ×2 (06:31→09:05)
[2019-05-02 06:38] LABS: BASOPHILS # (AUTO) 0.1 X10^3/uL (0.0-0.1); BASOPHILS % (AUTO) 0.9 % (0.2-1.0); EOSINOPHILS % (AUTO) 0.5 % (0.9-2.9); HEMATOCRIT 25.3 % (36.0-47.0); HEMOGLOBIN 8.7 g/dL (12.0-16.0); LYMPHOCYTES % (AUTO) 13.5 % (21.0-51.0); MEAN CORPUSCULAR HEMOGLOBIN 30.9 pg (27.0-34.0); MEAN CORPUSCULAR HGB CONC 34.2 g/dL (33.0-35.0); MEAN CORPUSCULAR VOLUME 90.5 fL (80.0-100.0); MEAN PLATELET VOLUME 10.2 fL (7.4-11.0); MONOCYTES # (AUTO) 0.5 x10^3/uL (0.3-0.8); MONOCYTES % (AUTO) 6.9 % (0.0-13.0); NEUTROPHILS # (AUTO) 5.7 x10^3/uL (2.2-4.8); NEUTROPHILS % (AUTO) 78.2 % (42.0-75.0); PLATELET COUNT 152 X10^3/uL (150.0-450.0); RED CELL DISTRIBUTION WIDTH 15.3 % (11.6-16.5); WHITE BLOOD COUNT 7.2 X10^3/uL (3.6-10.0)
[2019-05-02 06:55] LABS: ALBUMIN 2.7 g/dL (3.4-5.0); CALCIUM 7.9 mg/dL (8.5-10.1); CARBON DIOXIDE 18.4 mmol/L (21-32); COR CA(FOR HYPOALB) 8.9 mg/dL (8.5-10.1); CREATININE 3.67 mg/dL (0.55-1.02); TOTAL PROTEIN 6.9 g/dL (6.4-8.2)
[2019-05-02] MEDS: DUONEB 0.5 MG/3 MG NEB SCH ×4 (08:06→21:28)
[2019-05-02] MEDS ORDERED: NS 500 ML IV 500 ML IV ONE (08:44)
[2019-05-02] MEDS ORDERED: EFFEXOR XR 75 MG CAP PO SCH (09:00)
[2019-05-02] MEDS: ASPIRIN PO SCH (09:04)
[2019-05-02] MEDS: CATAPRES TAB 0.1 MG PO SCH (09:04)
[2019-05-02] MEDS: ZITHROMAX INJ 500 MG VIAL 500 MG in NS 250 ML IV 250 ML IV SCH (09:04)
[2019-05-02] MEDS: ROBITUSSIN DM PO SCH ×5 (09:04→20:43)
[2019-05-02] MEDS: SODIUM BICARBONATE TAB 650MG PO SCH ×2 (09:29→20:43)
[2019-05-02] MEDS: LOPRESSOR TAB 50 MG PO SCH ×2 (09:29→20:43)
[2019-05-02] MEDS ORDERED: LASIX IVP ONE (10:54)
[2019-05-02] MEDS ORDERED: LEVEMIR SC SCH (11:00)
--- NOTE | 2019-05-02 11:06 | PCM.PROG ---
Progress Note Progress Note for Day of Date of Exam: 05/02/19 Subjective Subjective: Patient admitted yesterday for worsening SOB. She was admitted for pneumonia and hyperglycemia. She reports feeling better this AM, SOB has improved. She was started on insulin drip due to blood glucose in 600s, improved to less than 200 this AM. CXR significant for acute bronchitis vs. pulmonary edema. She is currently on Rocephin and Azithromycin. Denies fever or chills, no N/V/D or abdominal pain. Past Medical Family Social History Past Med/Fam/Surg Hx: No changes since H&P Allergies: Allergies No Known Drug Allergies Allergy (Verified 02/27/19 10:49) Review of Systems ROS: No change since H&P Vital Signs and I&O's Vital Signs: Temperature 97.8 F Pulse Rate [Right Brachial] 66 Pulse Rate 62 Respiratory Rate 19 Blood Pressure [Left Calf] 132/93 Blood Pressure [Left Arm] 144/76 Blood Pressure [Right Arm] 164/77 Blood Pressure 137/76 O2 Sat by Pulse Oximetry 98 Intake and Output: Intake & Output 04/29/19 04/30/19 05/01/19 05/02/19 23:59 23:59 23:59 23:59 Intake Total 1787 / 1787 636 / 636 Output Total 1400 / 1400 400 / 400 Balance 387 / 387 236 / 236 Physical Exam Oriented: Normal Eyes: Blurred Vision (CHRONIC) Nose: Discharge Respiratory: Wheezes and Rhonchi Cardiovascular: Normal and Edema (b/l LE, s/p amputation of both feet ) Auscultation: Bowel Sounds: Normal Tenderness: Normal Skin: Normal Musculoskeletal: Left, Shoulder, Back:Thoracic and Deformity Psychiatric: Normal Mood Description: Calm Affect: Normal Speech Pattern: Clear and Appropriate Laboratory and Diagnostics Result Diagrams: 05/02/19 05:10 05/02/19 05:10 Labs: Laboratory WBC 7.2 X10^3/uL (3.6-10.0) 05/02/19 05:10 RBC 2.80 X10^6/uL (3.5-5.4) L 05/02/19 05:10 Hgb 8.7 g/dL (12.0-16.0) L 05/02/19 05:10 Hct 25.3 % (36.0-47.0) L 05/02/19 05:10 MCV 90.5 fL (80.0-100.0) 05/02/19 05:10 MCH 30.9 pg (27.0-34.0) 05/02/19 05:10 MCHC 34.2 g/dL (33.0-35.0) 05/02/19 05:10 RDW 15.3 % (11.6-16.5) 05/02/19 05:10 Plt Count 152 X10^3/uL (150.0-450.0) 05/02/19 05:10 MPV 10.2 fL (7.4-11.0) 05/02/19 05:10 Neut % (Auto) 78.2 % (42.0-75.0) H 05/02/19 05:10 Lymph % (Auto) 13.5 % (21.0-51.0) L 05/02/19 05:10 [place] % (Auto) 6.9 % (0.0-13.0) 05/02/19 05:10 Eos % (Auto) 0.5 % (0.9-2.9) L 05/02/19 05:10 Baso % (Auto) 0.9 % (0.2-1.0) 05/02/19 05:10 Neut # (Auto) 5.7 x10^3/uL (2.2-4.8) H 05/02/19 05:10 Lymph # (Auto) 1.0 X10^3/uL (1.3-2.9) L 05/02/19 05:10 [place] # (Auto) 0.5 x10^3/uL (0.3-0.8) 05/02/19 05:10 Eos # (Auto) 0.0 x10^3/uL (0.0-0.2) 05/02/19 05:10 Baso # (Auto) 0.1 X10^3/uL (0.0-0.1) 05/02/19 05:10 Absolute Nucleated RBC 0.0 /100WBC 05/02/19 05:10 Sample Site Lbra 05/01/19 05:08 ABG pH 7.300 (7.35-7.45) L 05/01/19 05:08 ABG pCO2 36.0 mmHg (35.0-45.0) 05/01/19 05:08 ABG pO2 67.0 mmHg (80.0-100.0) L 05/01/19 05:08 ABG HCO3 17.7 mmol/L (22-26) L* 05/01/19 05:08 ABG O2 Saturation 91.0 % (90-100) 05/01/19 05:08 ABG Base Excess -8.0 mmol/L (-2.0-2.0) L 05/01/19 05:08 Nathan Test Na 05/01/19 05:08 A-a Gradient 88.0 mmHg 05/01/19 05:08 FiO2 28.0 05/01/19 05:08 Blood Gas Comments Jona abg well-mtf 05/01/19 05:08 Sodium 136 mmol/L (136-145) 05/02/19 05:10 Corrected Sodium 139 mmol/L (136-145) 05/02/19 05:10 Potassium 4.7 mmol/L (3.5-5.1) 05/02/19 05:10 Chloride 104 mmol/L (98-107) 05/02/19 05:10 Carbon Dioxide 18.4 mmol/L (21-32) L 05/02/19 05:10 BUN 94 mg/dL (7-18) H 05/02/19 05:10 Creatinine 3.67 mg/dL (0.55-1.02) H 05/02/19 05:10 Est GFR (MDRD) Af Amer 18 (>60) L 05/02/19 05:10 Est GFR (MDRD) Non-Af 15 (>60) L 05/02/19 05:10 Glucose 232 mg/dL (65-99) H 05/02/19 05:10 POC Glucose (mg/dL) 210 mg/dL (65-99) H 05/02/19 09:41 Lactic Acid 1.8 mmol/L (0.4-2.0) 05/01/19 09:27 Calcium 7.9 mg/dL (8.5-10.1) L 05/02/19 05:10 Corrected Calcium 8.9 mg/dL (8.5-10.1) 05/02/19 05:10 Total Bilirubin 0.10 mg/dL (0.2-1.0) L 05/02/19 05:10 AST 19 Units/L (15-37) 05/02/19 05:10 ALT 96 Units/L (12-78) H 05/02/19 05:10 Alkaline Phosphatase 81 Units/L (46-116) 05/02/19 05:10 B-Natriuretic Peptide 1460 pg/mL (0-79) H* 05/01/19 05:00 Total Protein 6.9 g/dL (6.4-8.2) 05/02/19 05:10 Albumin 2.7 g/dL (3.4-5.0) L 05/02/19 05:10 Globulin 4.2 g/dL (2.5-4.5) 05/02/19 05:10 Albumin/Globulin Ratio 0.6 Ratio (1.1-2.1) L 05/02/19 05:10 Specimen Type Catherized urine 05/01/19 06:22 Urine Color Yellow (YELLOW) 05/01/19 06:22 Urine Appearance Cloudy (CLEAR) 05/01/19 06:22 Urine pH 5.0 (5.0 - 8.0) 05/01/19 06:22 Ur Specific [place] 1.020 (1.000-1.030) 05/01/19 06:22 Urine Protein 4+ (NEGATIVE) 05/01/19 06:22 Urine Glucose (UA) 4+ (NEGATIVE) 05/01/19 06:22 Urine Ketones Negative (NEGATIVE) 05/01/19 06:22 Urine Occult Blood 2+ (NEGATIVE) 05/01/19 06:22 Urine Nitrite Negative (NEGATIVE) 05/01/19 06:22 Urine Bilirubin Negative (NEGATIVE) 05/01/19 06:22 Urine Urobilinogen Normal (NORMAL) 05/01/19 06:22 Ur Leukocyte Esterase Negative (NEGATIVE) 05/01/19 06:22 Urine RBC 0-2 /HPF (0-3) 05/01/19 06:22 Urine WBC 0-2 /HPF (0-5) 05/01/19 06:22 Ur Squamous Epith Cells Rare /HPF (NEGATIVE) 05/01/19 06:22 Amorphous Sediment 3+ /HPF (NEGATIVE) 05/01/19 06:22 Urine Bacteria Negative /HPF (NEGATIVE) 05/01/19 06:22 Ur Culture Indicated? No/not indicated 05/01/19 06:22 Acetone, Semi-Quant Negative (NEGATIVE) 05/01/19 11:35 Influenza Type A (PCR) Negative (NEGATIVE) 05/01/19 04:56 Influenza Type B (PCR) Negative (NEGATIVE) 05/01/19 04:56 Plan (1) Mild congestive heart failure: Status: Acute Plan: add IV Lasix 40 mg once. Patient denies being on Lasix at home, listed as home medication 40 mg PO daily. (2) SOB (shortness of breath): Status: Acute Narrative Support Text: CXR suggestive of acute bronchitis vs pulmonary edema. BNP elevated, some LE edema present. Plan: Continue Rocephin and Azithromycin, continue duonebs and aggressive pulmonary toilet. Follow cultures. Will add Lasix 40 mg IV once, prednisone 40 mg qday (3) Bronchitis: Status: Acute (4) Diabetes mellitus type 1: Status: Chronic Plan: BG elevated on admission, started on insulin drip. BG less than 200 now. Will resume home levemir 20 mg QAM and SSI. Overlap drip for an hour and then stop. Monitor blood glucose closely. (5) Metabolic acidosis: Status: Acute Plan: on Sodium Bicarb PO, improving (6) CKD (chronic kidney disease) stage 4, GFR 15-29 ml/min: Status: Chronic Plan: Cr: 3.67, slightly up then baseline, will continue to monitor daily labs (7) CAD (coronary artery disease): Status: Chronic (8) GERD (gastroesophageal reflux disease): Status: Chronic (9) Hypertension: Status: Chronic (10) Transaminitis: Status: Acute Plan: trending down, continue to monitor
[2019-05-02] MEDS: PREDNISONE TAB 20 MG PO SCH (12:29)
[2019-05-02] MEDS: SNACK - Diabetic Appropriate PO SCH (20:00)
[2019-05-02] MEDS: HumuLIN R SUBCUT PRN (21:26)
[2019-05-03] MEDS: HumuLIN R SUBCUT PRN ×5 (00:37→21:13)
[2019-05-03] MEDS: NORCO 5/325 MG TAB PO PRN ×4 (04:19→19:38)
[2019-05-03] MEDS: APRESOLINE TAB 25 MG PO SCH ×3 (05:50→21:14)
[2019-05-03 06:37] LABS: BASOPHILS % (AUTO) 0.2 % (0.2-1.0); EOSINOPHILS % (AUTO) 0.3 % (0.9-2.9); HEMATOCRIT 24.1 % (36.0-47.0); MEAN CORPUSCULAR HEMOGLOBIN 30.8 pg (27.0-34.0); MEAN CORPUSCULAR HGB CONC 33.3 g/dL (33.0-35.0); MEAN CORPUSCULAR VOLUME 92.3 fL (80.0-100.0); MONOCYTES # (AUTO) 0.4 x10^3/uL (0.3-0.8); MONOCYTES % (AUTO) 5.4 % (0.0-13.0); NEUTROPHILS # (AUTO) 6.2 x10^3/uL (2.2-4.8); NEUTROPHILS % (AUTO) 81.1 % (42.0-75.0); PLATELET COUNT 168 X10^3/uL (150.0-450.0); RED BLOOD COUNT 2.61 X10^6/uL (3.5-5.4); RED CELL DISTRIBUTION WIDTH 15.7 % (11.6-16.5); WHITE BLOOD COUNT 7.7 X10^3/uL (3.6-10.0)
[2019-05-03 06:48] LABS: ALBUMIN 2.6 g/dL (3.4-5.0); CALCIUM 7.4 mg/dL (8.5-10.1); CARBON DIOXIDE 19.3 mmol/L (21-32); COR CA(FOR HYPOALB) 8.5 mg/dL (8.5-10.1); CREATININE 3.8 mg/dL (0.55-1.02); TOTAL PROTEIN 6.6 g/dL (6.4-8.2)
[2019-05-03] MEDS ORDERED: LEVEMIR SC SCH ×2 (08:00→09:00)
[2019-05-03] MEDS: DUONEB 0.5 MG/3 MG NEB SCH ×4 (08:33→20:29)
[2019-05-03] MEDS: ROBITUSSIN DM PO SCH ×4 (09:42→21:12)
[2019-05-03] MEDS: PREDNISONE TAB 20 MG PO SCH (09:43)
[2019-05-03] MEDS: ASPIRIN PO SCH (09:43)
[2019-05-03] MEDS: EFFEXOR XR 37.5 MG CAP PO SCH (09:43)
[2019-05-03] MEDS: ROCEPHIN VIAL 1 GRAM 1 G in NS 100 ML IV + SPIKE MINIBAG* 100 ML IV SCH (09:43)
[2019-05-03] MEDS: CATAPRES TAB 0.1 MG PO SCH (09:43)
[2019-05-03] MEDS: LOPRESSOR TAB 50 MG PO SCH ×2 (09:43→21:14)
[2019-05-03] MEDS: LEVEMIR SC SCH (09:44)
[2019-05-03] MEDS: ZITHROMAX INJ 500 MG VIAL 500 MG in NS 250 ML IV 250 ML IV SCH (09:44)
--- NOTE | 2019-05-03 10:03 | PCM.PROG ---
Progress Note Progress Note for Day of Date of Exam: 05/03/19 Subjective Subjective: Patient admitted for worsening SOB. She was admitted for bronchitis/COPD exacerbation and hyperglycemia. She reports feeling better this AM, SOB is slightly better. She is having non-productive cough. She is currently on Rocephin and Azithromycin. Denies fever or chills, no N/V/D or abdominal pain. She received a dose of Lasix yesterday. She has not had a BM in a few days. Past Medical Family Social History Past Med/Fam/Surg Hx: No changes since H&P Allergies: Allergies No Known Drug Allergies Allergy (Verified 02/27/19 10:49) Review of Systems ROS: No change since H&P Vital Signs and I&O's Vital Signs: Temperature 98.1 F Pulse Rate [Right Brachial] 66 Pulse Rate 53 Respiratory Rate 12 Blood Pressure [Left Calf] 132/93 Blood Pressure [Left Arm] 144/76 Blood Pressure [Right Arm] 164/77 Blood Pressure 133/66 O2 Sat by Pulse Oximetry 97 Intake and Output: Intake & Output 04/30/19 05/01/19 05/02/19 05/03/19 23:59 23:59 23:59 23:59 Intake Total 1787 / 1787 2551 / 2551 250 / 250 Output Total 1400 / 1400 1150 / 1150 300 / 300 Balance 387 / 387 1401 / 1401 -50 / -50 Physical Exam Oriented: Normal Eyes: Blurred Vision (CHRONIC) Nose: Discharge Respiratory: Wheezes and Rhonchi Cardiovascular: Normal and Edema (slight edema b/l LE, s/p amputation of both feet ) Auscultation: Bowel Sounds: Normal Tenderness: Normal Skin: Normal Musculoskeletal: Left, Shoulder, Back:Thoracic and Deformity Psychiatric: Normal Mood Description: Calm Affect: Normal Speech Pattern: Clear and Appropriate Laboratory and Diagnostics Result Diagrams: 05/03/19 05:20 05/03/19 05:20 Labs: 05/01/19 09:27 Blood Blood Culture - Preliminary 05/01/19 09:21 Blood Blood Culture - Preliminary Laboratory WBC 7.7 X10^3/uL (3.6-10.0) 05/03/19 05:20 RBC 2.61 X10^6/uL (3.5-5.4) L 05/03/19 05:20 Hgb 8.0 g/dL (12.0-16.0) L 05/03/19 05:20 Hct 24.1 % (36.0-47.0) L 05/03/19 05:20 MCV 92.3 fL (80.0-100.0) 05/03/19 05:20 MCH 30.8 pg (27.0-34.0) 05/03/19 05:20 MCHC 33.3 g/dL (33.0-35.0) 05/03/19 05:20 RDW 15.7 % (11.6-16.5) 05/03/19 05:20 Plt Count 168 X10^3/uL (150.0-450.0) 05/03/19 05:20 MPV 11.0 fL (7.4-11.0) 05/03/19 05:20 Neut % (Auto) 81.1 % (42.0-75.0) H 05/03/19 05:20 Lymph % (Auto) 13.0 % (21.0-51.0) L 05/03/19 05:20 Hudson % (Auto) 5.4 % (0.0-13.0) 05/03/19 05:20 Eos % (Auto) 0.3 % (0.9-2.9) L 05/03/19 05:20 Baso % (Auto) 0.2 % (0.2-1.0) 05/03/19 05:20 Neut # (Auto) 6.2 x10^3/uL (2.2-4.8) H 05/03/19 05:20 Lymph # (Auto) 1.0 X10^3/uL (1.3-2.9) L 05/03/19 05:20 Hudson # (Auto) 0.4 x10^3/uL (0.3-0.8) 05/03/19 05:20 Eos # (Auto) 0.0 x10^3/uL (0.0-0.2) 05/03/19 05:20 Baso # (Auto) 0.0 X10^3/uL (0.0-0.1) 05/03/19 05:20 Absolute Nucleated RBC 0.1 /100WBC 05/03/19 05:20 Sample Site Lbra 05/01/19 05:08 ABG pH 7.300 (7.35-7.45) L 05/01/19 05:08 ABG pCO2 36.0 mmHg (35.0-45.0) 05/01/19 05:08 ABG pO2 67.0 mmHg (80.0-100.0) L 05/01/19 05:08 ABG HCO3 17.7 mmol/L (22-26) L* 05/01/19 05:08 ABG O2 Saturation 91.0 % (90-100) 05/01/19 05:08 ABG Base Excess -8.0 mmol/L (-2.0-2.0) L 05/01/19 05:08 Nathan Test Na 05/01/19 05:08 A-a Gradient 88.0 mmHg 05/01/19 05:08 FiO2 28.0 05/01/19 05:08 Blood Gas Comments Jona abg well-mtf 05/01/19 05:08 Sodium 138 mmol/L (136-145) 05/03/19 05:20 Corrected Sodium 141 mmol/L (136-145) 05/03/19 05:20 Potassium 5.1 mmol/L (3.5-5.1) 05/03/19 05:20 Chloride 105 mmol/L (98-107) 05/03/19 05:20 Carbon Dioxide 19.3 mmol/L (21-32) L 05/03/19 05:20 BUN 99 mg/dL (7-18) H 05/03/19 05:20 Creatinine 3.80 mg/dL (0.55-1.02) H 05/03/19 05:20 Est GFR (MDRD) Af Amer 17 (>60) L 05/03/19 05:20 Est GFR (MDRD) Non-Af 14 (>60) L 05/03/19 05:20 Glucose 216 mg/dL (65-99) H 05/03/19 05:20 POC Glucose (mg/dL) 167 mg/dL (65-99) H 05/03/19 08:50 Lactic Acid 1.8 mmol/L (0.4-2.0) 05/01/19 09:27 Calcium 7.4 mg/dL (8.5-10.1) L 05/03/19 05:20 Corrected Calcium 8.5 mg/dL (8.5-10.1) 05/03/19 05:20 Total Bilirubin 0.10 mg/dL (0.2-1.0) L 05/03/19 05:20 AST 15 Units/L (15-37) 05/03/19 05:20 ALT 82 Units/L (12-78) H 05/03/19 05:20 Alkaline Phosphatase 72 Units/L (46-116) 05/03/19 05:20 B-Natriuretic Peptide 1460 pg/mL (0-79) H* 05/01/19 05:00 Total Protein 6.6 g/dL (6.4-8.2) 05/03/19 05:20 Albumin 2.6 g/dL (3.4-5.0) L 05/03/19 05:20 Globulin 4.0 g/dL (2.5-4.5) 05/03/19 05:20 Albumin/Globulin Ratio 0.7 Ratio (1.1-2.1) L 05/03/19 05:20 Specimen Type Catherized urine 05/01/19 06:22 Urine Color Yellow (YELLOW) 05/01/19 06:22 Urine Appearance Cloudy (CLEAR) 05/01/19 06:22 Urine pH 5.0 (5.0 - 8.0) 05/01/19 06:22 Ur Specific Dresser 1.020 (1.000-1.030) 05/01/19 06:22 Urine Protein 4+ (NEGATIVE) 05/01/19 06:22 Urine Glucose (UA) 4+ (NEGATIVE) 05/01/19 06:22 Urine Ketones Negative (NEGATIVE) 05/01/19 06:22 Urine Occult Blood 2+ (NEGATIVE) 05/01/19 06:22 Urine Nitrite Negative (NEGATIVE) 05/01/19 06:22 Urine Bilirubin Negative (NEGATIVE) 05/01/19 06:22 Urine Urobilinogen Normal (NORMAL) 05/01/19 06:22 Ur Leukocyte Esterase Negative (NEGATIVE) 05/01/19 06:22 Urine RBC 0-2 /HPF (0-3) 05/01/19 06:22 Urine WBC 0-2 /HPF (0-5) 05/01/19 06:22 Ur Squamous Epith Cells Rare /HPF (NEGATIVE) 05/01/19 06:22 Amorphous Sediment 3+ /HPF (NEGATIVE) 05/01/19 06:22 Urine Bacteria Negative /HPF (NEGATIVE) 05/01/19 06:22 Ur Culture Indicated? No/not indicated 05/01/19 06:22 Acetone, Semi-Quant Negative (NEGATIVE) 05/01/19 11:35 Influenza Type A (PCR) Negative (NEGATIVE) 05/01/19 04:56 Influenza Type B (PCR) Negative (NEGATIVE) 05/01/19 04:56 Plan (1) Acute on chronic anemia: Status: Acute Plan: Hgb: 8.0, denies active bleeding. Will repeat at 5 pm. Anemia panel ordered. Continue to monitor Am labs. has received blood transfusions in the past. (2) Mild congestive heart failure: Status: Acute Plan: received IV Lasix 40 mg once yesterday. Repeat CXR pending this AM. No prev ECHO on file. Will order ECHO for tomorrow to assess LV function. (3) SOB (shortness of breath): Status: Acute Plan: Continue Rocephin and Azithromycin, continue duonebs and aggressive pulmonary toilet. Follow cultures. Continue prednisone 40 mg qday (4) Bronchitis: Status: Acute (5) Diabetes mellitus type 1: Status: Chronic Qualifiers: Diabetes mellitus complication status: with hyperglycemia Qualified Code(s): E10.65 - Type 1 diabetes mellitus with hyperglycemia Plan: BG elevated on admission, started on insulin drip which was stopped after blood glucose less than 200. Will increase levemir to 25 units qAM. Continue SSI. Monitor blood glucose closely. (6) Metabolic acidosis: Status: Acute Plan: on Sodium Bicarb PO, improving (7) CKD (chronic kidney disease) stage 4, GFR 15-29 ml/min: Status: Chronic Plan: Cr: 3.80, slightly up then baseline, will continue to monitor daily labs, not on IVF due to increased pulmonary congestion. Repeat CXR pending. (8) CAD (coronary artery disease): Status: Chronic Qualifiers: Associated angina: with unspecified angina Coronary Disease-Associated Artery/Lesion type: bypass graft, other Qualified Code(s): I25.799 - Atherosclerosis of other coronary artery bypass graft(s) with unspecified angina pectoris Plan: s/p CABG (9) GERD (gastroesophageal reflux disease): Status: Chronic Qualifiers: Esophagitis presence: without esophagitis Qualified Code(s): K21.9 - Gastro-esophageal reflux disease without esophagitis (10) Hypertension: Status: Chronic Qualifiers: Hypertension type: unspecified Qualified Code(s): I10 - Essential (primary) hypertension (11) Transaminitis: Status: Acute Plan: trending down, continue to monitor (12) Constipation: Status: Acute Qualifiers: Constipation type: unspecified constipation type Qualified Code(s): K59.00 - Constipation, unspecified Plan: will add Colace and Miralax
[2019-05-03] MEDS: SODIUM BICARBONATE TAB 650MG PO SCH ×2 (10:54→21:13)
[2019-05-03] MEDS: MIRALAX POWDER (1 DOSE 17 G) PO SCH (10:54)
[2019-05-03] MEDS: COLACE CAP 100 MG PO SCH (10:54)
--- NOTE | 2019-05-03 14:19 | RAD ---
HISTORY: Pulmonary edema Study: Single view of the chest. Comparison: 05/01/2019 Findings: The cardiomediastinal silhouette is normal. No focal consolidations, pleural effusions or pneumothorax. Osseous structures demonstrate no acute abnormality. IMPRESSION: 1. No acute cardiopulmonary process. Reported By:
[2019-05-03 17:26] LABS: HEMATOCRIT 24.7 % (36.0-47.0); HEMOGLOBIN 8.1 g/dL (12.0-16.0)
[2019-05-03] MEDS: SNACK - Diabetic Appropriate PO SCH (20:00)
[2019-05-03] MEDS: MILK OF MAGNESIA PO PRN (21:12)
[2019-05-04] MEDS: NORCO 5/325 MG TAB PO PRN ×5 (00:14→20:24)
[2019-05-04] MEDS: HumuLIN R SUBCUT PRN ×4 (00:15→20:25)
[2019-05-04] MEDS: APRESOLINE TAB 25 MG PO SCH ×3 (05:33→21:00)
[2019-05-04 06:29] LABS: BASOPHILS % (AUTO) 0.2 % (0.2-1.0); EOSINOPHILS % (AUTO) 0.5 % (0.9-2.9); HEMATOCRIT 24.4 % (36.0-47.0); HEMOGLOBIN 8.2 g/dL (12.0-16.0); LYMPHOCYTES # (AUTO) 1.2 X10^3/uL (1.3-2.9); LYMPHOCYTES % (AUTO) 18.1 % (21.0-51.0); MEAN CORPUSCULAR HEMOGLOBIN 30.8 pg (27.0-34.0); MEAN CORPUSCULAR HGB CONC 33.5 g/dL (33.0-35.0); MEAN CORPUSCULAR VOLUME 91.9 fL (80.0-100.0); MONOCYTES # (AUTO) 0.4 x10^3/uL (0.3-0.8); MONOCYTES % (AUTO) 6.5 % (0.0-13.0); NEUTROPHILS # (AUTO) 4.8 x10^3/uL (2.2-4.8); NEUTROPHILS % (AUTO) 74.7 % (42.0-75.0); PLATELET COUNT 175 X10^3/uL (150.0-450.0); RED BLOOD COUNT 2.66 X10^6/uL (3.5-5.4); RED CELL DISTRIBUTION WIDTH 15.8 % (11.6-16.5); WHITE BLOOD COUNT 6.4 X10^3/uL (3.6-10.0)
[2019-05-04 07:01] LABS: ALBUMIN 2.5 g/dL (3.4-5.0); CALCIUM 7.5 mg/dL (8.5-10.1); CARBON DIOXIDE 21.3 mmol/L (21-32); COR CA(FOR HYPOALB) 8.7 mg/dL (8.5-10.1); CREATININE 3.58 mg/dL (0.55-1.02); TOTAL PROTEIN 6.5 g/dL (6.4-8.2)
[2019-05-04] MEDS: DUONEB 0.5 MG/3 MG NEB SCH ×4 (08:14→20:50)
[2019-05-04] MEDS ORDERED: AFLURIA II4 or FLUARIX II4 IM ONE (09:04)
[2019-05-04] MEDS: ROBITUSSIN DM PO SCH ×4 (09:44→20:24)
[2019-05-04] MEDS: PREDNISONE TAB 20 MG PO SCH (09:44)
[2019-05-04] MEDS: ZITHROMAX INJ 500 MG VIAL 500 MG in NS 250 ML IV 250 ML IV SCH (09:44)
[2019-05-04] MEDS: ROCEPHIN VIAL 1 GRAM 1 G in NS 100 ML IV + SPIKE MINIBAG* 100 ML IV SCH (09:44)
[2019-05-04] MEDS: ASPIRIN PO SCH (09:45)
[2019-05-04] MEDS: EFFEXOR XR 37.5 MG CAP PO SCH (09:45)
[2019-05-04] MEDS: LOPRESSOR TAB 50 MG PO SCH ×2 (09:45→20:24)
[2019-05-04] MEDS: CATAPRES TAB 0.1 MG PO SCH (09:45)
[2019-05-04] MEDS: LEVEMIR SC SCH (09:46)
[2019-05-04] MEDS: MIRALAX POWDER (1 DOSE 17 G) PO SCH (09:46)
[2019-05-04] MEDS: SODIUM BICARBONATE TAB 650MG PO SCH ×2 (10:21→20:24)
[2019-05-04] MEDS: COLACE CAP 100 MG PO SCH (10:21)
[2019-05-04] MEDS: HEMOCYTE-PLUS PO SCH (18:18)
[2019-05-04] MEDS: LASIX IVP SCH ×2 (18:18→20:24)
[2019-05-04] MEDS: SNACK - Diabetic Appropriate PO SCH (20:04)
[2019-05-04] MEDS: MILK OF MAGNESIA PO PRN (20:23)
[2019-05-05] MEDS: NORCO 5/325 MG TAB PO PRN ×5 (00:16→19:54)
[2019-05-05] MEDS: HumuLIN R SUBCUT PRN ×3 (00:17→08:19)
[2019-05-05] MEDS: APRESOLINE TAB 25 MG PO SCH ×3 (05:07→21:16)
[2019-05-05 05:56] LABS: BASOPHILS % (AUTO) 0.3 % (0.2-1.0); EOSINOPHILS % (AUTO) 0.3 % (0.9-2.9); HEMATOCRIT 27.6 % (36.0-47.0); LYMPHOCYTES # (AUTO) 1.2 X10^3/uL (1.3-2.9); LYMPHOCYTES % (AUTO) 17.4 % (21.0-51.0); MEAN CORPUSCULAR HEMOGLOBIN 30.5 pg (27.0-34.0); MEAN CORPUSCULAR HGB CONC 32.7 g/dL (33.0-35.0); MEAN CORPUSCULAR VOLUME 93.3 fL (80.0-100.0); MONOCYTES # (AUTO) 0.5 x10^3/uL (0.3-0.8); MONOCYTES % (AUTO) 6.4 % (0.0-13.0); NEUTROPHILS # (AUTO) 5.3 x10^3/uL (2.2-4.8); NEUTROPHILS % (AUTO) 75.6 % (42.0-75.0); PLATELET COUNT 188 X10^3/uL (150.0-450.0); RED BLOOD COUNT 2.96 X10^6/uL (3.5-5.4); RED CELL DISTRIBUTION WIDTH 15.5 % (11.6-16.5)
[2019-05-05 05:59] LABS: ALBUMIN 2.7 g/dL (3.4-5.0); CALCIUM 7.7 mg/dL (8.5-10.1); CARBON DIOXIDE 23.2 mmol/L (21-32); COR CA(FOR HYPOALB) 8.7 mg/dL (8.5-10.1); CREATININE 3.36 mg/dL (0.55-1.02); TOTAL PROTEIN 6.8 g/dL (6.4-8.2)
[2019-05-05] MEDS: ZITHROMAX INJ 500 MG VIAL 500 MG in NS 250 ML IV 250 ML IV SCH (08:18)
[2019-05-05] MEDS: ROCEPHIN VIAL 1 GRAM 1 G in NS 100 ML IV + SPIKE MINIBAG* 100 ML IV SCH (08:18)
[2019-05-05] MEDS: MIRALAX POWDER (1 DOSE 17 G) PO SCH (08:19)
[2019-05-05] MEDS: LOPRESSOR TAB 50 MG PO SCH ×2 (08:19→21:15)
[2019-05-05] MEDS: ROBITUSSIN DM PO SCH ×4 (08:19→21:15)
[2019-05-05] MEDS: ASPIRIN PO SCH (08:19)
[2019-05-05] MEDS: HEMOCYTE-PLUS PO SCH (08:19)
[2019-05-05] MEDS: SODIUM BICARBONATE TAB 650MG PO SCH ×2 (08:19→21:15)
[2019-05-05] MEDS: EFFEXOR XR 37.5 MG CAP PO SCH (08:19)
[2019-05-05] MEDS: CATAPRES TAB 0.1 MG PO SCH (08:19)
[2019-05-05] MEDS: COLACE CAP 100 MG PO SCH (08:19)
[2019-05-05] MEDS: LEVEMIR SC SCH (08:20)
[2019-05-05] MEDS: NS 1/2 1000 ML IV 1,000 ML IV SCH ×2 (08:20→23:21)
[2019-05-05] MEDS ORDERED: NS 1/2 1000 ML IV 1,000 ML IV ONE (08:21)
[2019-05-05] MEDS: DUONEB 0.5 MG/3 MG NEB SCH ×4 (09:17→20:35)
[2019-05-05] MEDS: PULMICORT NEB TX 0.5 MG NEB SCH ×2 (09:17→20:35)
[2019-05-05] MEDS: KAYEXALATE SUSP PO SCH ×2 (09:18→21:15)
--- NOTE | 2019-05-05 09:49 | RAD ---
HISTORY: 38-year-old female with CHF. Study: Frontal view of the chest. Comparison: Chest radiograph 05/03/2019 Findings: Surgical devices are unchanged. The trachea is midline. The cardiac silhouette is stably enlarged with chronic prominence interstitium and perihilar lung markings. The lungs are clear without focal consolidation, effusion or pneumothorax. Soft tissues are unremarkable. Osseous structures are unremarkable. IMPRESSION: 1. Chronic cardiomegaly and findings suggesting COPD. Reported By:
[2019-05-05] MEDS: SNACK - Diabetic Appropriate PO SCH (19:48)
[2019-05-06] MEDS: NORCO 5/325 MG TAB PO PRN ×2 (04:14→14:28)
[2019-05-06] MEDS: APRESOLINE TAB 25 MG PO SCH ×2 (05:41→13:48)
[2019-05-06 06:16] LABS: BASOPHILS # (AUTO) 0.1 X10^3/uL (0.0-0.1); BASOPHILS % (AUTO) 1.3 % (0.2-1.0); EOSINOPHILS # (AUTO) 0.3 x10^3/uL (0.0-0.2); EOSINOPHILS % (AUTO) 6.1 % (0.9-2.9); HEMATOCRIT 26.4 % (36.0-47.0); HEMOGLOBIN 8.8 g/dL (12.0-16.0); LYMPHOCYTES # (AUTO) 1.8 X10^3/uL (1.3-2.9); LYMPHOCYTES % (AUTO) 32.9 % (21.0-51.0); MEAN CORPUSCULAR HEMOGLOBIN 30.7 pg (27.0-34.0); MEAN CORPUSCULAR HGB CONC 33.1 g/dL (33.0-35.0); MEAN CORPUSCULAR VOLUME 92.5 fL (80.0-100.0); MEAN PLATELET VOLUME 9.4 fL (7.4-11.0); MONOCYTES # (AUTO) 0.3 x10^3/uL (0.3-0.8); MONOCYTES % (AUTO) 5.3 % (0.0-13.0); NEUTROPHILS % (AUTO) 54.4 % (42.0-75.0); PLATELET COUNT 177 X10^3/uL (150.0-450.0); RED BLOOD COUNT 2.86 X10^6/uL (3.5-5.4); RED CELL DISTRIBUTION WIDTH 16.1 % (11.6-16.5); WHITE BLOOD COUNT 5.4 X10^3/uL (3.6-10.0)
[2019-05-06 06:31] LABS: ALBUMIN 2.4 g/dL (3.4-5.0); CALCIUM 7.4 mg/dL (8.5-10.1); CARBON DIOXIDE 26.8 mmol/L (21-32); COR CA(FOR HYPOALB) 8.7 mg/dL (8.5-10.1); CREATININE 2.82 mg/dL (0.55-1.02)
[2019-05-06] MEDS: EFFEXOR XR 37.5 MG CAP PO SCH (08:44)
[2019-05-06] MEDS: ROCEPHIN VIAL 1 GRAM 1 G in NS 100 ML IV + SPIKE MINIBAG* 100 ML IV SCH (08:44)
[2019-05-06] MEDS: ASPIRIN PO SCH (08:44)
[2019-05-06] MEDS: CATAPRES TAB 0.1 MG PO SCH (08:44)
[2019-05-06] MEDS: SODIUM BICARBONATE TAB 650MG PO SCH (08:44)
[2019-05-06] MEDS: ROBITUSSIN DM PO SCH ×2 (08:45→13:48)
[2019-05-06] MEDS: HEMOCYTE-PLUS PO SCH (08:45)
[2019-05-06] MEDS: COLACE CAP 100 MG PO SCH (08:45)
[2019-05-06] MEDS: LOPRESSOR TAB 50 MG PO SCH (08:45)
[2019-05-06] MEDS: MIRALAX POWDER (1 DOSE 17 G) PO SCH (08:45)
[2019-05-06] MEDS: LEVEMIR SC SCH (09:00)
[2019-05-06] MEDS: DUONEB 0.5 MG/3 MG NEB SCH ×3 (09:24→16:55)
[2019-05-06] MEDS: PULMICORT NEB TX 0.5 MG NEB SCH (09:24)
[2019-05-06] MEDS: ZITHROMAX INJ 500 MG VIAL 500 MG in NS 250 ML IV 250 ML IV SCH (10:15)
--- NOTE | 2019-05-06 11:15 | RAD ---
HISTORY: Constipation Study: ANGELINA, two views Comparison: 03/21/2019 FINDINGS/IMPRESSION: There is prominent gaseous distention of the stomach. There is retained stool throughout the colon and rectum. Prior cholecystectomy is noted. Reported By:
[2019-05-06] MEDS ORDERED: DULCOLAX SUPPOSITORY 10 MG RECTAL ONE (12:01)
[2019-05-06] MEDS ORDERED: DULCOLAX SUPPOSITORY 10 MG ONE (12:07)
[2019-05-06 14:37] VITALS: BP 178/84
== END 2019-05-06 17:05 | disposition home or self-care (01) | DRG 202 ==
LOC: ER 04:30 → MED/SURG 06:28 → ICU 09:05
PROVIDERS: ADMIT Obstetrics & Gynecology Obstetrics; ATTEND Internal Medicine
CPT/HCPCS: 36415; 36600; 51702; 71010; 71045; 74000; 74018; 80053; 81001; 82009; 82607; 82728; 82746; 82803; 82947; 83540; 83605; 83880; 84466; 85014; 85018; 85025; 87040; 87502; 90674; 90686; 93306; 94640; 96365; 96367; 96374; 96375; 97110; 97162; 97165; 97530; 97535; 99285; A4222; J0456; J0696; J1815; J1940; J2930; J7030; J7040; J7050; J7512; J7613; J7620; J7626

== ENCOUNTER 2019-05-28 14:30 | Inpatient (IN) ==
--- NOTE | 2019-05-28 14:53 | DR.GENAD ---
HPI - PCP Primary Care Physician: DAVID - Complaint/Symptoms Chief Complaint:: EMS WAS PAGED TO RESIDENT, HOME HEALTH WAS VISITING PATIENT. CALLED [facility] FORMER, KATE[facility] FORMER REQUEST FOR PT TO BE EVALUATED PER ER DOCTOR. PT HAS ELEVATED BS OVER 300 FOR SEVERAL DAYS, EDEMA NOTED TO LOWER EXTREMITIES, SOB ALSO. Patient has right AKA and left foot amputation from PVD. - Nurses notes reviewed Nurses Notes Review: Yes - Source History Provided: Patient, EMS - Mode of Arrival Mode of Arrival: EMS - Timing Onset of Chief Complaint: 05/26/19 Came on: Gradually - Duration Duration: Constant Duration: Days - Location Location: generalized - Severity Severity: Moderate - Associated Signs and Symptoms Associated Signs and Symptoms: dyspnea PMH - PMH Past Medical History: Yes Past Medical History: Anxiety, Arthritis, Cirrhosis, CHF, Diabetes, Migraines, GERD, Headaches, Hypertension, Renal Disease, Seizures Past Surgical History: Yes Surgical History: , CABG/Valve Surgery, Ortho Surgery, Other - Family History History of Family Medical Conditions: Yes Family Medical History: Diabetes Mellitus, Cancer, [place] - Social History Does any household member use tobacco: No Alcohol Use: None Do you use any recreational Drugs:: No Lives With: Family - infectious screening In the last 2 months have you had wt loss of >10#?: NO Have you had fever, night sweats or hemotysis?: No Have you traveled outside the country in the last 6 months?: No Isolation: Contact ROS - Review of Systems Constitutional: Weakness Eyes: No Symptoms Reported ENTM: No Symptoms Reported Respiratoy: No Symptoms Reported Cardiovascular: Edema Gastrointestinal/Abdominal: No Symptoms Reported Genitourinary: No Symptoms Reported Neurological: Weakness Musculoskeletal: Other (Right AKA, Left foot amputation) PE - General Limitations: No Limitations General Appearance: Alert, In No Apparent Distress, Anxious - Head Head Exam: Normal Inspection - Eyes Eye exam: Normal Appearance, PERRL, EOMI - ENT ENT Exam: Normal Exam, Normal Oropharynx External Ear Exam: Normal External Inspection Mouth Exam: Normal Inspection, Trismus - Neck Neck Exam: Normal Inspection, Full ROM, Trachea Midline - Chest Chest Inspection: Normal Inspection - Respiratory Respiratory Exam: Normal Lung Sounds Bilat Respiratory Exam: Bilateral Clear to Auscultation - Cardiovascular Cardiovascular Exam: Bradycardia - Abdominal Exam Abdominal Exam: Normal Inspection, Normal Bowel Sounds, Soft. negative: Distention, Tenderness, Guarding - Extremities Extremities Exam: Edema (left leg) - Back Back Exam: Normal Inspection - Neurologic Neurological Exam: Alert, Oriented X3, CN II-XII Intact, Other (unable to ambulate) - Psychiatric Psychiatric Exam: Depressed - Skin Skin Exam: Intact, Normal Color - Vital Signs Vitals: Temperature 98.3 F Pulse Rate [Right Brachial] 58 Pulse Rate 58 Respiratory Rate 20 Blood Pressure [Left Calf] 132/93 Blood Pressure [Left Arm] 144/76 Blood Pressure [Right Arm] 146/71 Blood Pressure 146/71 O2 Sat by Pulse Oximetry 99 Course - Consultation Called: 16:53 (DR. Waldron) Call Returned: 17:08 Consultation Comments: discussed with DR. waldron admit for rehydration hyperglycemia ROR - Labs Reviewed Result Diagrams: 05/28/19 15:10 05/28/19 15:10 - XRAY XRAY Interpreted by: Radiologist XRAY Findings: Cardiomegaly with CHF - Labs Reviewed Laboratory: WBC 3.6 X10^3/uL (3.6-10.0) 05/28/19 15:10 RBC 2.66 X10^6/uL (3.5-5.4) L 05/28/19 15:10 Hgb 8.3 g/dL (12.0-16.0) L 05/28/19 15:10 Hct 24.7 % (36.0-47.0) L 05/28/19 15:10 MCV 92.8 fL (80.0-100.0) 05/28/19 15:10 MCH 31.2 pg (27.0-34.0) 05/28/19 15:10 MCHC 33.7 g/dL (33.0-35.0) 05/28/19 15:10 RDW 15.1 % (11.6-16.5) 05/28/19 15:10 Plt Count 193 X10^3/uL (150.0-450.0) 05/28/19 15:10 MPV 9.4 fL (7.4-11.0) 05/28/19 15:10 Neut % (Auto) 59.3 % (42.0-75.0) 05/28/19 15:10 Lymph % (Auto) 23.4 % (21.0-51.0) 05/28/19 15:10 Clark % (Auto) 7.6 % (0.0-13.0) 05/28/19 15:10 Eos % (Auto) 7.1 % (0.9-2.9) H 05/28/19 15:10 Baso % (Auto) 2.6 % (0.2-1.0) H 05/28/19 15:10 Neut # (Auto) 2.2 x10^3/uL (2.2-4.8) 05/28/19 15:10 Lymph # (Auto) 0.8 X10^3/uL (1.3-2.9) L 05/28/19 15:10 Clark # (Auto) 0.3 x10^3/uL (0.3-0.8) 05/28/19 15:10 Eos # (Auto) 0.3 x10^3/uL (0.0-0.2) H 05/28/19 15:10 Baso # (Auto) 0.1 X10^3/uL (0.0-0.1) 05/28/19 15:10 Absolute Nucleated RBC 0.1 /100WBC 05/28/19 15:10 Sodium 135 mmol/L (136-145) L 05/28/19 15:10 Corrected Sodium 142 mmol/L (136-145) 05/28/19 15:10 Potassium 6.4 mmol/L (3.5-5.1) H* 05/28/19 15:10 Chloride 103 mmol/L (98-107) 05/28/19 15:10 Carbon Dioxide 26.3 mmol/L (21-32) 05/28/19 15:10 BUN 80 mg/dL (7-18) H 05/28/19 15:10 Creatinine 4.55 mg/dL (0.55-1.02) H 05/28/19 15:10 Est GFR (MDRD) Af Amer 14 (>60) L 05/28/19 15:10 Est GFR (MDRD) Non-Af 11 (>60) L 05/28/19 15:10 Glucose 392 mg/dL (65-99) H 05/28/19 15:10 Calcium 8.0 mg/dL (8.5-10.1) L 05/28/19 15:10 Corrected Calcium 9.0 mg/dL (8.5-10.1) 05/28/19 15:10 Total Bilirubin 0.20 mg/dL (0.2-1.0) 05/28/19 15:10 AST 14 Units/L (15-37) L 05/28/19 15:10 ALT 37 Units/L (12-78) 05/28/19 15:10 Alkaline Phosphatase 89 Units/L (46-116) 05/28/19 15:10 Total Protein 6.6 g/dL (6.4-8.2) 05/28/19 15:10 Albumin 2.7 g/dL (3.4-5.0) L 05/28/19 15:10 Globulin 3.9 g/dL (2.5-4.5) 05/28/19 15:10 Albumin/Globulin Ratio 0.7 Ratio (1.1-2.1) L 05/28/19 15:10 Opioid - Opioid Risk Tool Age (Owen box if 16-45): Yes History of Preadolescent Sexual Abuse: No Total: 1 Total Score Risk Category: Low Risk - Diagnosis Discharge Problem: Dehydration, Hyperglycemia - Discharge Plan Condition: Stable - Follow ups/Referrals Follow ups/Referrals: NISH WALDRON [STAFF PHYSICIAN] - 3 days - Instructions
[2019-05-28 15:20] LABS: BASOPHILS # (AUTO) 0.1 X10^3/uL (0.0-0.1); BASOPHILS % (AUTO) 2.6 % (0.2-1.0); EOSINOPHILS # (AUTO) 0.3 x10^3/uL (0.0-0.2); EOSINOPHILS % (AUTO) 7.1 % (0.9-2.9); HEMATOCRIT 24.7 % (36.0-47.0); HEMOGLOBIN 8.3 g/dL (12.0-16.0); LYMPHOCYTES # (AUTO) 0.8 X10^3/uL (1.3-2.9); LYMPHOCYTES % (AUTO) 23.4 % (21.0-51.0); MEAN CORPUSCULAR HEMOGLOBIN 31.2 pg (27.0-34.0); MEAN CORPUSCULAR HGB CONC 33.7 g/dL (33.0-35.0); MEAN CORPUSCULAR VOLUME 92.8 fL (80.0-100.0); MEAN PLATELET VOLUME 9.4 fL (7.4-11.0); MONOCYTES # (AUTO) 0.3 x10^3/uL (0.3-0.8); MONOCYTES % (AUTO) 7.6 % (0.0-13.0); NEUTROPHILS # (AUTO) 2.2 x10^3/uL (2.2-4.8); NEUTROPHILS % (AUTO) 59.3 % (42.0-75.0); PLATELET COUNT 193 X10^3/uL (150.0-450.0); RED BLOOD COUNT 2.66 X10^6/uL (3.5-5.4); RED CELL DISTRIBUTION WIDTH 15.1 % (11.6-16.5); WHITE BLOOD COUNT 3.6 X10^3/uL (3.6-10.0)
[2019-05-28 15:24] LABS: CARBON DIOXIDE 26.3 mmol/L (21-32); CREATININE 4.55 mg/dL (0.55-1.02)
--- NOTE | 2019-05-28 15:29 | RAD ---
HISTORY: Dyspnea Study: Single-view of the chest Comparison: May 05, 2019 Findings: The patient is slightly rotated. The cardiac silhouette is enlarged with pulmonary vascular congestion and suspected edema. Recommend clinical correlation and continued follow-up as indicated for further evaluation. Postoperative changes of midline sternotomy are noted. IMPRESSION: 1. Cardiomegaly with pulmonary vascular congestion and suspected edema. Correlate clinically. Reported By:
[2019-05-28 15:31] LABS: ALBUMIN 2.7 g/dL (3.4-5.0); TOTAL PROTEIN 6.6 g/dL (6.4-8.2)
[2019-05-28] MEDS ORDERED: NS 500 ML IV 1,000 ML IV ONE ×2 (15:55→17:14)
[2019-05-28] MEDS ORDERED: HumuLIN R IV ONE (15:55)
[2019-05-28] MEDS ORDERED: NS 1000 ML 1,000 ML ONE ×2 (15:56→17:30)
[2019-05-28] MEDS ORDERED: HumuLIN R ONE (15:57)
[2019-05-28] MEDS ORDERED: HumaLOG SC PRN (17:15)
[2019-05-28] MEDS ORDERED: TORADOL 30 MG VIAL IVP ONE (17:26)
[2019-05-28] MEDS ORDERED: TORADOL 30 MG VIAL ONE (17:28)
[2019-05-28] MEDS ORDERED: SNACK - Diabetic Appropriate PO SCH (20:00)
[2019-05-28 20:19] VITALS: BMI 43.9
[2019-05-28 21:05] LABS: BILIRUBIN,URINE NEGATIVE (NEGATIVE); BLOOD/HEMOGLOBIN,URINE 1+ (NEGATIVE); GLUCOSE, URINE 3+ (NEGATIVE); KETONES,URINE NEGATIVE (NEGATIVE); LEUKOCYTE ESTERASE ,URINE NEGATIVE (NEGATIVE); NITRITES,URINE NEGATIVE (NEGATIVE); PROTEIN,URINE 4+ (NEGATIVE); UROBILINOGEN,URINE NORMAL (NORMAL)
[2019-05-28 21:14] LABS: APPEARANCE,URINE HAZY (CLEAR); COLOR,URINE YELLOW (YELLOW); RBC,URINE 0-2 /HPF (0-3)
[2019-05-28 21:15] LABS: AMORPHOUS SEDIMENT,UR TRACE /HPF (NEGATIVE); BACTERIA,URINE NEGATIVE /HPF (NEGATIVE); MUCUS,URINE FEW /HPF (NEGATIVE); SQUAMOUS EPITHELIAL CELL,UR MODERATE /HPF (NEGATIVE)
[2019-05-28] MEDS: SNACK - Diabetic Appropriate PO SCH (21:35)
[2019-05-28] MEDS: HumuLIN R SUBCUT PRN (21:36)
[2019-05-28] MEDS: NORCO 5/325 MG TAB PO PRN (21:36)
[2019-05-29] MEDS: NORCO 5/325 MG TAB PO PRN ×2 (03:31→16:58)
[2019-05-29 06:42] LABS: BASOPHILS # (AUTO) 0.1 X10^3/uL (0.0-0.1); BASOPHILS % (AUTO) 2.3 % (0.2-1.0); EOSINOPHILS # (AUTO) 0.3 x10^3/uL (0.0-0.2); EOSINOPHILS % (AUTO) 8.7 % (0.9-2.9); HEMATOCRIT 23.3 % (36.0-47.0); HEMOGLOBIN 7.7 g/dL (12.0-16.0); LYMPHOCYTES # (AUTO) 1.1 X10^3/uL (1.3-2.9); LYMPHOCYTES % (AUTO) 31.4 % (21.0-51.0); MEAN CORPUSCULAR VOLUME 94.1 fL (80.0-100.0); MEAN PLATELET VOLUME 9.6 fL (7.4-11.0); MONOCYTES # (AUTO) 0.3 x10^3/uL (0.3-0.8); NEUTROPHILS # (AUTO) 1.7 x10^3/uL (2.2-4.8); NEUTROPHILS % (AUTO) 49.6 % (42.0-75.0); PLATELET COUNT 170 X10^3/uL (150.0-450.0); RED BLOOD COUNT 2.48 X10^6/uL (3.5-5.4); RED CELL DISTRIBUTION WIDTH 15.5 % (11.6-16.5); WHITE BLOOD COUNT 3.5 X10^3/uL (3.6-10.0)
[2019-05-29] MEDS: HumuLIN R SUBCUT PRN ×4 (07:01→22:56)
[2019-05-29 07:05] LABS: ALBUMIN 2.5 g/dL (3.4-5.0); CALCIUM 7.7 mg/dL (8.5-10.1); CARBON DIOXIDE 22.3 mmol/L (21-32); COR CA(FOR HYPOALB) 8.9 mg/dL (8.5-10.1); CREATININE 4.36 mg/dL (0.55-1.02); TOTAL PROTEIN 6.1 g/dL (6.4-8.2)
[2019-05-29 07:08] LABS: HYPOCHROMASIA SLIGHT; PLATELET MORPHOLOGY COMMENT NORMAL (NORMAL)
[2019-05-29 08:22] LABS: CREATINE KINASE 80 Units/L (26-192); CREATINE KINASE MB 1.6 ng/mL (0-4.0); TROPONIN I < 0.02 ng/mL (0-1.5)
[2019-05-29 08:55] LABS: SERUM ACETONE NEGATIVE (NEGATIVE)
[2019-05-29 09:06] LABS: ABG HCO3 22.2 mmol/L (22-26)
[2019-05-29] MEDS: NS 1000 ML 1,000 ML IV SCH (09:31)
[2019-05-29] MEDS: PROTONIX INJ 40 MG VIAL IVP SCH (09:31)
[2019-05-29] MEDS: KAYEXALATE SUSP PO SCH ×2 (09:31→21:04)
[2019-05-29] MEDS: LASIX IVP SCH ×2 (09:31→21:04)
[2019-05-29 09:34] LABS: IRON 47 ug/dL (50-175)
[2019-05-29] MEDS: PULMICORT NEB TX 0.5 MG NEB SCH ×2 (09:37→23:01)
[2019-05-29] MEDS: LEVEMIR SC SCH (10:51)
[2019-05-29] MEDS: MORPHINE SULFATE INJ 2 MG INJ IVP PRN ×3 (10:51→21:12)
[2019-05-29 11:07] LABS: BILIRUBIN,URINE NEGATIVE (NEGATIVE); BLOOD/HEMOGLOBIN,URINE NEGATIVE (NEGATIVE); GLUCOSE, URINE 2+ (NEGATIVE); KETONES,URINE NEGATIVE (NEGATIVE); LEUKOCYTE ESTERASE ,URINE 1+ (NEGATIVE); NITRITES,URINE NEGATIVE (NEGATIVE); PROTEIN,URINE 3+ (NEGATIVE); UROBILINOGEN,URINE NORMAL (NORMAL)
--- NOTE | 2019-05-29 11:14 | VAS ---
HISTORY: Left lower extremity edema Study: Venous Doppler Comparison: None TECHNIQUE: Multiple ernst scale and color flow Doppler images of the deep venous system were obtained of the left lower extremity FINDINGS: There is normal respiratory phasicity, compression and augmentation of the extremity veins without evidence of acute DVT. IMPRESSION: 1. Negative for DVT. Reported By:
[2019-05-29 11:17] LABS: APPEARANCE,URINE CLOUDY (CLEAR); COLOR,URINE PALE YELLOW (YELLOW); RBC,URINE 0-2 /HPF (0-3)
[2019-05-29 11:18] LABS: AMORPHOUS SEDIMENT,UR TRACE /HPF (NEGATIVE); BACTERIA,URINE 2+ /HPF (NEGATIVE); MUCUS,URINE FEW /HPF (NEGATIVE); SQUAMOUS EPITHELIAL CELL,UR FEW /HPF (NEGATIVE)
--- NOTE | 2019-05-29 12:14 | DR.H&P ---
H&P - History & Physical for Day of: H&P Date: 05/28/19 - Chief Complaint Chief Complaint: SOB, LEFT LEG SWELLING - History of Present Illness History of Present Illness: PT IS 38 WF ER ADMISSION AFTER PRESENTING VIA EMS WITH CO SOB, LOWER LEG SWELLING, HX R BKA. PT WAS EVALUATED BY HOME HEALTH NURSE REPORTS TO PCP SEVERE SOB, WITH EDEMA AND ELEVATED BS. PT IS BRITTLE TYPE 1DM WITH CAD, RENAL FAILURE, HTN, OA. PT DENIES ANY N/V/D. PT STATES SHE HAS BEEN MORE SOB SINCE 2-3 DAYS. PT DENIES ANY PRODUCTIVE COUGH - Past Medical History Past Medical History: Anxiety, Arthritis, Cirrhosis, CHF, Diabetes, Migraines, GERD, Headaches, Hypertension, Renal Disease, Seizures - Past Surgical History Surgical History: , CABG/Valve Surgery, Ortho Surgery, Other - Family History Family Medical History: Diabetes Mellitus, Cancer, [place] - Social History Does patient currently use any type of tobacco product: No Type of Tobacco Use: None Does any household member use tobacco: No Alcohol Use: None Drug Use: None - Medications Home Medications: No Known Drug Allergies Allergy (Verified 05/28/19 14:38) - Review of Systems Constitutional: Weakness Eyes: No Symptoms Reported ENT: No Symptoms Reported Respiratory: Shortness of Breath Cardiovascular: No Symptoms Reported, Edema Gastrointestinal: No Symptoms Reported Genitourinary: Frequency Musculoskeletal: Leg Pain Skin: Other (REDNESS TO LLE) Neurological: Weakness - Physical Exam Vital Signs: Temperature 97.4 F Pulse Rate [Right Brachial] 52 Pulse Rate 54 Respiratory Rate 18 Blood Pressure [Left Calf] 132/93 Blood Pressure [Left Arm] 144/76 Blood Pressure [Right Arm] 123/64 Blood Pressure 146/71 O2 Sat by Pulse Oximetry 99 Oriented: Normal Eyes: Blurred Vision (CHRONIC) Ear: Normal Nose: Normal Throat: Normal Respiratory: RML Diminished, RLL Diminished, LML Diminished, LLL Diminished Cardiovascular: Normal, Edema : Normal Auscultation: Bowel Sounds: Normal Palpation: Normal Tenderness: Normal Skin: Decreased Turgur, Red, Tender (LLE) Musculoskeletal: Deformity (RBKA) Psychiatric: Anxiety Speech Pattern: Clear, Appropriate - Assessment/Plan (1) SOB (shortness of breath) Status: Acute Plan: ADMIT, EKG ON ADMISSION. CXR ON ADMISSION, STRICT I & OS,. RESP CONSULT, ABG AM. VERIFY HOME MEDICATION. BS CONTROL, BP AND CARDIAC MONITORING. SSI COVERAGE, PAIN CONTROL (2) CHF (congestive heart failure) Status: Acute (3) Dehydration Status: Acute (4) CAD (coronary artery disease) Qualifiers: Coronary Disease-Associated Artery/Lesion type: bypass graft, other Associated angina: with unspecified angina Qualified Code(s): I25.799 - At herosclerosis of other coronary artery bypass graft(s) with unspecified angina pectoris Status: Chronic (5) CKD (chronic kidney disease) stage 4, GFR 15-29 ml/min Status: Chronic (6) Diabetes mellitus type 1 Qualifiers: Diabetes mellitus complication status: with hyperglycemia Qualified Code(s): E10.65 - Type 1 diabetes mellitus with hyperglycemia Status: Chronic (7) GERD (gastroesophageal reflux disease) Qualifiers: Esophagitis presence: without esophagitis Qualified Code(s): K21.9 - Gastro-esophageal reflux disease without esophagitis Status: Chronic - Review H&P Reviewed: Yes Patient was examined?: Yes - Allergies Allergies/Adverse Reactions: Allergies Allergy/AdvReac Type Severity Reaction Status Date / Time No Known Drug Allergies Allergy Verified 05/28/19 14:38
--- NOTE | 2019-05-29 12:19 | PCM.PROG ---
Progress Note - Progress Note for Day of Date of Exam: 05/29/19 - Subjective Subjective: PT IS 38 WF ER ADMISSION WITH CO SOB, CHF EXACERBATION. PT HAS DIFFUSE LLE EDEMA WITH LOCALIZED ANTERIOR REDNESS WITH INCREASED WARMTH AND TENDNERNESS. PT DENIES COUGH THIS AM, BILATERAL DIMINISHED LUNG BASES. SPUTUM CULTURE ORDERED. K 6.0 BUN 86 CREAT 4.36, HGB 7.7. ANEMIA PANEL ORDERED, GENTLE HYDRATION WITH LIZARRAGA CATH FOR STRICT I&OS, IV LASIX 20MG X 2 DOSES. REPEAT EKG, CE AND ABG THIS MORNING. PAIN CONTROL AND IV ATBX. - Past Medical Family Social History Past Med/Fam/Surg Hx: No changes since H&P Allergies: Allergies No Known Drug Allergies Allergy (Verified 05/28/19 14:38) - Review of Systems ROS: No change since H&P - Vital Signs and I&O's Vital Signs: Temperature 97.4 F Pulse Rate [Right Brachial] 52 Pulse Rate 54 Respiratory Rate 18 Blood Pressure [Left Calf] 132/93 Blood Pressure [Left Arm] 144/76 Blood Pressure [Right Arm] 123/64 Blood Pressure 146/71 O2 Sat by Pulse Oximetry 99 Intake and Output: Intake & Output 05/27/19 05/28/19 05/29/19 05/30/19 11:59 11:59 11:59 11:59 Intake Total 720 / 720 Output Total 500 / 500 Balance 220 / 220 - Physical Exam Oriented: Normal Eyes: Blurred Vision (CHRONIC) Ear: Normal Nose: Normal Throat: Normal Respiratory: Diminished Cardiovascular: Normal, Edema : Normal Auscultation: Bowel Sounds: Normal Tenderness: Normal Skin: Decreased Turgur, Red, Tender (LLE) Musculoskeletal: Deformity (RBKA) Psychiatric: Anxiety Speech Pattern: Clear, Appropriate - Laboratory and Diagnostics Result Diagrams: 05/29/19 05:40 05/29/19 05:40 Labs: Laboratory WBC 3.5 X10^3/uL (3.6-10.0) L 05/29/19 05:40 RBC 2.48 X10^6/uL (3.5-5.4) L 05/29/19 05:40 Hgb 7.7 g/dL (12.0-16.0) L 05/29/19 05:40 Hct 23.3 % (36.0-47.0) L 05/29/19 05:40 MCV 94.1 fL (80.0-100.0) 05/29/19 05:40 MCH 31.0 pg (27.0-34.0) 05/29/19 05:40 MCHC 33.0 g/dL (33.0-35.0) 05/29/19 05:40 RDW 15.5 % (11.6-16.5) 05/29/19 05:40 Plt Count 170 X10^3/uL (150.0-450.0) 05/29/19 05:40 Plt Count Comment Adequate (ADEQUATE) 05/29/19 05:40 MPV 9.6 fL (7.4-11.0) 05/29/19 05:40 Neut % (Auto) 49.6 % (42.0-75.0) 05/29/19 05:40 Lymph % (Auto) 31.4 % (21.0-51.0) 05/29/19 05:40 [place] % (Auto) 8.0 % (0.0-13.0) 05/29/19 05:40 Eos % (Auto) 8.7 % (0.9-2.9) H 05/29/19 05:40 Baso % (Auto) 2.3 % (0.2-1.0) H 05/29/19 05:40 Neut # (Auto) 1.7 x10^3/uL (2.2-4.8) L 05/29/19 05:40 Lymph # (Auto) 1.1 X10^3/uL (1.3-2.9) L 05/29/19 05:40 [place] # (Auto) 0.3 x10^3/uL (0.3-0.8) 05/29/19 05:40 Eos # (Auto) 0.3 x10^3/uL (0.0-0.2) H 05/29/19 05:40 Baso # (Auto) 0.1 X10^3/uL (0.0-0.1) 05/29/19 05:40 Absolute Nucleated RBC 0.1 /100WBC 05/29/19 05:40 Plt Morphology Comment Normal (NORMAL) 05/29/19 05:40 RBC Morphology Abnormal (NORMAL) A 05/29/19 05:40 Hypochromasia Slight A 05/29/19 05:40 Sample Site Right brachial 05/29/19 08:58 ABG pH 7.310 (7.35-7.45) L 05/29/19 08:58 ABG pCO2 44.0 mmHg (35.0-45.0) 05/29/19 08:58 ABG pO2 133.0 mmHg (80.0-100.0) H 05/29/19 08:58 ABG HCO3 22.2 mmol/L (22-26) 05/29/19 08:58 ABG O2 Saturation 99.0 % (90-100) 05/29/19 08:58 ABG Base Excess -4.0 mmol/L (-2.0-2.0) L 05/29/19 08:58 Nathan Test Na 05/29/19 08:58 A-a Gradient 12.0 mmHg 05/29/19 08:58 FiO2 28.0 05/29/19 08:58 Blood Gas Comments Jona well aw 05/29/19 08:58 Sodium 136 mmol/L (136-145) 05/29/19 05:40 Corrected Sodium 141 mmol/L (136-145) 05/29/19 05:40 Potassium 6.0 mmol/L (3.5-5.1) H* 05/29/19 05:40 Chloride 106 mmol/L (98-107) 05/29/19 05:40 Carbon Dioxide 22.3 mmol/L (21-32) 05/29/19 05:40 BUN 86 mg/dL (7-18) H 05/29/19 05:40 Creatinine 4.36 mg/dL (0.55-1.02) H 05/29/19 05:40 Est GFR (MDRD) Af Amer 15 (>60) L 05/29/19 05:40 Est GFR (MDRD) Non-Af 12 (>60) L 05/29/19 05:40 Glucose 311 mg/dL (65-99) H 05/29/19 05:40 POC Glucose (mg/dL) 278 mg/dL (65-99) H 05/29/19 11:45 Calcium 7.7 mg/dL (8.5-10.1) L 05/29/19 05:40 Corrected Calcium 8.9 mg/dL (8.5-10.1) 05/29/19 05:40 Iron 47 ug/dL (50-175) L 05/29/19 05:40 Transferrin 178 mg/dL (202-364) L 05/29/19 05:40 Ferritin 149 ng/mL (8-252) 05/29/19 05:40 Total Bilirubin 0.20 mg/dL (0.2-1.0) 05/29/19 05:40 AST 15 Units/L (15-37) 05/29/19 05:40 ALT 30 Units/L (12-78) 05/29/19 05:40 Alkaline Phosphatase 80 Units/L (46-116) 05/29/19 05:40 Creatine Kinase 80 Units/L (26-192) 05/29/19 05:40 CK-MB (CK-2) 1.6 ng/mL (0-4.0) 05/29/19 05:40 CK/CKMB % Calc 2.0 % (<4) 05/29/19 05:40 Troponin I < 0.02 ng/mL (0-1.5) 05/29/19 05:40 Total Protein 6.1 g/dL (6.4-8.2) L 05/29/19 05:40 Albumin 2.5 g/dL (3.4-5.0) L 05/29/19 05:40 Globulin 3.6 g/dL (2.5-4.5) 05/29/19 05:40 Albumin/Globulin Ratio 0.7 Ratio (1.1-2.1) L 05/29/19 05:40 Vitamin B12 450 pg/mL (193-986) 05/29/19 05:40 Folate 3.8 ng/mL (>8.6) L 05/29/19 05:40 Specimen Type Catherized urine 05/29/19 10:55 Urine Color Pale yellow (YELLOW) 05/29/19 10:55 Urine Appearance Cloudy (CLEAR) 05/29/19 10:55 Urine pH 5.0 (5.0 - 8.0) 05/29/19 10:55 Ur Specific [place] 1.015 (1.000-1.030) 05/29/19 10:55 Urine Protein 3+ (NEGATIVE) 05/29/19 10:55 Urine Glucose (UA) 2+ (NEGATIVE) 05/29/19 10:55 Urine Ketones Negative (NEGATIVE) 05/29/19 10:55 Urine Occult Blood Negative (NEGATIVE) 05/29/19 10:55 Urine Nitrite Negative (NEGATIVE) 05/29/19 10:55 Urine Bilirubin Negative (NEGATIVE) 05/29/19 10:55 Urine Urobilinogen Normal (NORMAL) 05/29/19 10:55 Ur Leukocyte Esterase 1+ (NEGATIVE) 05/29/19 10:55 Urine RBC 0-2 /HPF (0-3) 05/29/19 10:55 Urine WBC 10-20 /HPF (0-5) A 05/29/19 10:55 Ur Squamous Epith Cells Few /HPF (NEGATIVE) 05/29/19 10:55 Amorphous Sediment Trace /HPF (NEGATIVE) 05/29/19 10:55 Urine Bacteria 2+ /HPF (NEGATIVE) 05/29/19 10:55 Urine Mucus Few /HPF (NEGATIVE) 05/29/19 10:55 Ur Culture Indicated? Yes/culture set up 05/29/19 10:55 Acetone, Semi-Quant Negative (NEGATIVE) 05/29/19 05:40 - Plan (1) SOB (shortness of breath) Status: Acute Plan: EKG ON ADMISSION AND REPEAT. CXR , Q AM STRICT I & OS,. RESP CONSULT, ABG AM. VERIFY HOME MEDICATION. BS CONTROL, BP AND CARDIAC MONITORING. SSI COVERAGE, PAIN CONTROL. GENTLE IV HYDRATION, LIZARRAGA CATH STRICT I & OS. SPUTUM CULTURE, US LLE (2) CHF (congestive heart failure) Status: Acute (3) Dehydration Status: Acute (4) CAD (coronary artery disease) Status: Chronic Qualifiers: Coronary Disease-Associated Artery/Lesion type: bypass graft, other Associated angina: with unspecified angina Qualified Code(s): I25.799 - Atherosclerosis of other coronary artery bypass graft(s) with unspecified angina pectoris (5) CKD (chronic kidney disease) stage 4, GFR 15-29 ml/min Status: Chronic (6) Diabetes mellitus type 1 Status: Chronic Qualifiers: Diabetes mellitus complication status: with hyperglycemia Qualified Code(s): E10.65 - Type 1 diabetes mellitus with hyperglycemia (7) GERD (gastroesophageal reflux disease) Status: Chronic Qualifiers: Esophagitis presence: without esophagitis Qualified Code(s): K21.9 - Gastro-esophageal reflux disease without esophagitis
[2019-05-29 14:00] LABS: CKMB % 2.5 % (<4); CREATINE KINASE 80 Units/L (26-192); TROPONIN I < 0.02 ng/mL (0-1.5)
[2019-05-29] MEDS: APRESOLINE TAB 25 MG PO SCH ×2 (14:26→21:05)
[2019-05-29] MEDS: NS IV SCH ×2 (14:32→21:04)
[2019-05-29] MEDS: TEFLARO IV SCH ×2 (14:32→21:04)
[2019-05-29] MEDS ORDERED: SNACK - Diabetic Appropriate PO SCH ×2 (20:00)
[2019-05-29 20:25] LABS: CKMB % 2.2 % (<4); CREATINE KINASE 77 Units/L (26-192); CREATINE KINASE MB 1.7 ng/mL (0-4.0); TROPONIN I < 0.02 ng/mL (0-1.5)
[2019-05-29] MEDS: SNACK - Diabetic Appropriate PO SCH (21:00)
[2019-05-30] MEDS: NORCO 5/325 MG TAB PO PRN ×3 (01:24→15:54)
[2019-05-30] MEDS: NS 1000 ML 1,000 ML IV SCH ×2 (04:47→13:17)
[2019-05-30] MEDS: MORPHINE SULFATE INJ 2 MG INJ IVP PRN ×3 (04:51→21:41)
[2019-05-30 05:31] LABS: BASOPHILS # (AUTO) 0.1 X10^3/uL (0.0-0.1); BASOPHILS % (AUTO) 2.6 % (0.2-1.0); EOSINOPHILS # (AUTO) 0.3 x10^3/uL (0.0-0.2); EOSINOPHILS % (AUTO) 9.2 % (0.9-2.9); HEMATOCRIT 24.8 % (36.0-47.0); HEMOGLOBIN 8.3 g/dL (12.0-16.0); LYMPHOCYTES # (AUTO) 0.9 X10^3/uL (1.3-2.9); LYMPHOCYTES % (AUTO) 26.8 % (21.0-51.0); MEAN CORPUSCULAR HGB CONC 33.3 g/dL (33.0-35.0); MEAN CORPUSCULAR VOLUME 92.9 fL (80.0-100.0); MEAN PLATELET VOLUME 9.4 fL (7.4-11.0); MONOCYTES # (AUTO) 0.2 x10^3/uL (0.3-0.8); MONOCYTES % (AUTO) 7.4 % (0.0-13.0); NEUTROPHILS # (AUTO) 1.8 x10^3/uL (2.2-4.8); PLATELET COUNT 185 X10^3/uL (150.0-450.0); RED BLOOD COUNT 2.67 X10^6/uL (3.5-5.4); RED CELL DISTRIBUTION WIDTH 15.2 % (11.6-16.5); WHITE BLOOD COUNT 3.3 X10^3/uL (3.6-10.0)
[2019-05-30 05:33] LABS: ALBUMIN 2.5 g/dL (3.4-5.0); CALCIUM 7.8 mg/dL (8.5-10.1); CARBON DIOXIDE 23.7 mmol/L (21-32); CREATININE 3.8 mg/dL (0.55-1.02); TOTAL PROTEIN 6.2 g/dL (6.4-8.2)
[2019-05-30] MEDS: APRESOLINE TAB 25 MG PO SCH ×3 (05:46→21:41)
[2019-05-30] MEDS: LEVEMIR SC SCH (08:23)
[2019-05-30] MEDS: NS IV SCH ×2 (08:26→21:37)
[2019-05-30] MEDS: TEFLARO IV SCH ×2 (08:26→21:37)
[2019-05-30] MEDS: PROTONIX INJ 40 MG VIAL IVP SCH (08:31)
[2019-05-30] MEDS: PULMICORT NEB TX 0.5 MG NEB SCH ×2 (08:59→20:39)
--- NOTE | 2019-05-30 11:56 | PCM.PROG ---
Progress Note Progress Note for Day of Date of Exam: 05/30/19 Subjective Subjective: Pt feeling better this morning. Reports breathing has improved. No acute concerns overnight. Past Medical Family Social History Past Med/Fam/Surg Hx: No changes since H&P Allergies: Allergies No Known Drug Allergies Allergy (Verified 05/28/19 14:38) Review of Systems ROS: No change since H&P Vital Signs and I&O's Vital Signs: Temperature 98.0 F Pulse Rate [Right Brachial] 66 Pulse Rate 66 Respiratory Rate 20 Blood Pressure [Left Calf] 132/93 Blood Pressure [Left Arm] 144/76 Blood Pressure [Right Arm] 150/67 Blood Pressure 146/71 O2 Sat by Pulse Oximetry 98 Intake and Output: Intake & Output 05/27/19 05/28/19 05/29/19 05/30/19 23:59 23:59 23:59 23:59 Intake Total 620 / 620 1460 / 1460 50 / 50 Output Total 500 / 500 1875 / 1875 1300 / 1300 Balance 120 / 120 -415 / -415 -1250 / -1250 Physical Exam Oriented: Normal Eyes: Blurred Vision (CHRONIC) Ear: Normal Nose: Normal Throat: Normal Respiratory: Diminished Cardiovascular: Normal and Edema : Normal Auscultation: Bowel Sounds: Normal Tenderness: Normal Skin: Decreased Turgur, Red and Tender (LLE) Musculoskeletal: Deformity (RBKA) Psychiatric: Anxiety Speech Pattern: Appropriate Laboratory and Diagnostics Result Diagrams: 05/30/19 04:33 05/30/19 04:33 Labs: 05/29/19 10:55 Urine,Catheterized Urine Culture - Preliminary Laboratory WBC 3.3 X10^3/uL (3.6-10.0) L 05/30/19 04:33 RBC 2.67 X10^6/uL (3.5-5.4) L 05/30/19 04:33 Hgb 8.3 g/dL (12.0-16.0) L 05/30/19 04:33 Hct 24.8 % (36.0-47.0) L 05/30/19 04:33 MCV 92.9 fL (80.0-100.0) 05/30/19 04:33 MCH 31.0 pg (27.0-34.0) 05/30/19 04:33 MCHC 33.3 g/dL (33.0-35.0) 05/30/19 04:33 RDW 15.2 % (11.6-16.5) 05/30/19 04:33 Plt Count 185 X10^3/uL (150.0-450.0) 05/30/19 04:33 Plt Count Comment Adequate (ADEQUATE) 05/29/19 05:40 MPV 9.4 fL (7.4-11.0) 05/30/19 04:33 Neut % (Auto) 54.0 % (42.0-75.0) 05/30/19 04:33 Lymph % (Auto) 26.8 % (21.0-51.0) 05/30/19 04:33 [place] % (Auto) 7.4 % (0.0-13.0) 05/30/19 04:33 Eos % (Auto) 9.2 % (0.9-2.9) H 05/30/19 04:33 Baso % (Auto) 2.6 % (0.2-1.0) H 05/30/19 04:33 Neut # (Auto) 1.8 x10^3/uL (2.2-4.8) L 05/30/19 04:33 Lymph # (Auto) 0.9 X10^3/uL (1.3-2.9) L 05/30/19 04:33 [place] # (Auto) 0.2 x10^3/uL (0.3-0.8) L 05/30/19 04:33 Eos # (Auto) 0.3 x10^3/uL (0.0-0.2) H 05/30/19 04:33 Baso # (Auto) 0.1 X10^3/uL (0.0-0.1) 05/30/19 04:33 Absolute Nucleated RBC 0.0 /100WBC 05/30/19 04:33 Plt Morphology Comment Normal (NORMAL) 05/29/19 05:40 RBC Morphology Abnormal (NORMAL) A 05/29/19 05:40 Hypochromasia Slight A 05/29/19 05:40 Sample Site Right brachial 05/29/19 08:58 ABG pH 7.310 (7.35-7.45) L 05/29/19 08:58 ABG pCO2 44.0 mmHg (35.0-45.0) 05/29/19 08:58 ABG pO2 133.0 mmHg (80.0-100.0) H 05/29/19 08:58 ABG HCO3 22.2 mmol/L (22-26) 05/29/19 08:58 ABG O2 Saturation 99.0 % (90-100) 05/29/19 08:58 ABG Base Excess -4.0 mmol/L (-2.0-2.0) L 05/29/19 08:58 Nathan Test Na 05/29/19 08:58 A-a Gradient 12.0 mmHg 05/29/19 08:58 FiO2 28.0 05/29/19 08:58 Blood Gas Comments Jona well aw 05/29/19 08:58 Sodium 139 mmol/L (136-145) 05/30/19 04:33 Corrected Sodium 141 mmol/L (136-145) 05/30/19 04:33 Potassium 5.4 mmol/L (3.5-5.1) H 05/30/19 04:33 Chloride 108 mmol/L (98-107) H 05/30/19 04:33 Carbon Dioxide 23.7 mmol/L (21-32) 05/30/19 04:33 BUN 80 mg/dL (7-18) H 05/30/19 04:33 Creatinine 3.80 mg/dL (0.55-1.02) H 05/30/19 04:33 Est GFR (MDRD) Af Amer 17 (>60) L 05/30/19 04:33 Est GFR (MDRD) Non-Af 14 (>60) L 05/30/19 04:33 Glucose 193 mg/dL (65-99) H 05/30/19 04:33 POC Glucose (mg/dL) 175 mg/dL (65-99) H 05/30/19 11:12 Calcium 7.8 mg/dL (8.5-10.1) L 05/30/19 04:33 Corrected Calcium 9.0 mg/dL (8.5-10.1) 05/30/19 04:33 Iron 47 ug/dL (50-175) L 05/29/19 05:40 Transferrin 178 mg/dL (202-364) L 05/29/19 05:40 Ferritin 149 ng/mL (8-252) 05/29/19 05:40 Total Bilirubin 0.20 mg/dL (0.2-1.0) 05/30/19 04:33 AST 10 Units/L (15-37) L 05/30/19 04:33 ALT 26 Units/L (12-78) 05/30/19 04:33 Alkaline Phosphatase 80 Units/L (46-116) 05/30/19 04:33 Creatine Kinase 77 Units/L (26-192) 05/29/19 19:56 CK-MB (CK-2) 1.7 ng/mL (0-4.0) 05/29/19 19:56 CK/CKMB % Calc 2.2 % (<4) 05/29/19 19:56 Troponin I < 0.02 ng/mL (0-1.5) 05/29/19 19:56 Total Protein 6.2 g/dL (6.4-8.2) L 05/30/19 04:33 Albumin 2.5 g/dL (3.4-5.0) L 05/30/19 04:33 Globulin 3.7 g/dL (2.5-4.5) 05/30/19 04:33 Albumin/Globulin Ratio 0.7 Ratio (1.1-2.1) L 05/30/19 04:33 Vitamin B12 450 pg/mL (193-986) 05/29/19 05:40 Folate 3.8 ng/mL (>8.6) L 05/29/19 05:40 Specimen Type Catherized urine 05/29/19 10:55 Urine Color Pale yellow (YELLOW) 05/29/19 10:55 Urine Appearance Cloudy (CLEAR) 05/29/19 10:55 Urine pH 5.0 (5.0 - 8.0) 05/29/19 10:55 Ur Specific [place] 1.015 (1.000-1.030) 05/29/19 10:55 Urine Protein 3+ (NEGATIVE) 05/29/19 10:55 Urine Glucose (UA) 2+ (NEGATIVE) 05/29/19 10:55 Urine Ketones Negative (NEGATIVE) 05/29/19 10:55 Urine Occult Blood Negative (NEGATIVE) 05/29/19 10:55 Urine Nitrite Negative (NEGATIVE) 05/29/19 10:55 Urine Bilirubin Negative (NEGATIVE) 05/29/19 10:55 Urine Urobilinogen Normal (NORMAL) 05/29/19 10:55 Ur Leukocyte Esterase 1+ (NEGATIVE) 05/29/19 10:55 Urine RBC 0-2 /HPF (0-3) 05/29/19 10:55 Urine WBC 10-20 /HPF (0-5) A 05/29/19 10:55 Ur Squamous Epith Cells Few /HPF (NEGATIVE) 05/29/19 10:55 Amorphous Sediment Trace /HPF (NEGATIVE) 05/29/19 10:55 Urine Bacteria 2+ /HPF (NEGATIVE) 05/29/19 10:55 Urine Mucus Few /HPF (NEGATIVE) 05/29/19 10:55 Ur Culture Indicated? Yes/culture set up 05/29/19 10:55 Acetone, Semi-Quant Negative (NEGATIVE) 05/29/19 05:40 Plan (1) SOB (shortness of breath): Status: Acute Plan: IMPROVED SYMPTOMS, SPUTUMCX PENDING, RT W/ NEBS TX GENTLE IV HYDRATION, LIZARRAGA CATH STRICT I & OS US LLE NEGATIVE FOR DVT (2) CHF (congestive heart failure): Status: Acute (3) Dehydration: Status: Acute (4) CAD (coronary artery disease): Status: Chronic Qualifiers: Associated angina: with unspecified angina Coronary Disease-Associated Artery/Lesion type: bypass graft, other Qualified Code(s): I25.799 - Atherosclerosis of other coronary artery bypass graft(s) with unspecified angina pectoris (5) CKD (chronic kidney disease) stage 4, GFR 15-29 ml/min: Status: Chronic (6) Diabetes mellitus type 1: Status: Chronic Qualifiers: Diabetes mellitus complication status: with hyperglycemia Qualified Code(s): E10.65 - Type 1 diabetes mellitus with hyperglycemia (7) GERD (gastroesophageal reflux disease): Status: Chronic Qualifiers: Esophagitis presence: without esophagitis Qualified Code(s): K21.9 - Gastro-esophageal reflux disease without esophagitis
[2019-05-30] MEDS: SNACK - Diabetic Appropriate PO SCH (21:36)
[2019-05-31] MEDS: NORCO 5/325 MG TAB PO PRN ×2 (01:01→09:59)
[2019-05-31] MEDS ORDERED: ZOFRAN INJ 4 MG VIAL ONE (02:02)
[2019-05-31] MEDS: ZOFRAN INJ 4 MG VIAL IVP PRN ×2 (02:24→12:13)
[2019-05-31] MEDS: NS 1000 ML 1,000 ML IV SCH ×3 (04:17→17:21)
[2019-05-31] MEDS: APRESOLINE TAB 25 MG PO SCH ×3 (05:33→22:24)
[2019-05-31] MEDS: HumuLIN R SUBCUT PRN (05:33)
[2019-05-31] MEDS: MORPHINE SULFATE INJ 2 MG INJ IVP PRN ×2 (06:00→15:35)
[2019-05-31 06:09] LABS: BASOPHILS # (AUTO) 0.1 X10^3/uL (0.0-0.1); BASOPHILS % (AUTO) 1.9 % (0.2-1.0); EOSINOPHILS # (AUTO) 0.2 x10^3/uL (0.0-0.2); HEMATOCRIT 25.6 % (36.0-47.0); HEMOGLOBIN 8.6 g/dL (12.0-16.0); LYMPHOCYTES # (AUTO) 0.6 X10^3/uL (1.3-2.9); LYMPHOCYTES % (AUTO) 15.7 % (21.0-51.0); MEAN CORPUSCULAR HGB CONC 33.5 g/dL (33.0-35.0); MEAN CORPUSCULAR VOLUME 92.4 fL (80.0-100.0); MEAN PLATELET VOLUME 9.1 fL (7.4-11.0); MONOCYTES # (AUTO) 0.2 x10^3/uL (0.3-0.8); MONOCYTES % (AUTO) 5.6 % (0.0-13.0); NEUTROPHILS # (AUTO) 2.9 x10^3/uL (2.2-4.8); NEUTROPHILS % (AUTO) 70.8 % (42.0-75.0); PLATELET COUNT 204 X10^3/uL (150.0-450.0); RED BLOOD COUNT 2.77 X10^6/uL (3.5-5.4); RED CELL DISTRIBUTION WIDTH 15.4 % (11.6-16.5); WHITE BLOOD COUNT 4.1 X10^3/uL (3.6-10.0)
[2019-05-31 06:13] LABS: CALCIUM 7.9 mg/dL (8.5-10.1); CARBON DIOXIDE 23.4 mmol/L (21-32); CREATININE 3.4 mg/dL (0.55-1.02)
[2019-05-31] MEDS: PULMICORT NEB TX 0.5 MG NEB SCH ×2 (08:22→19:59)
[2019-05-31] MEDS: PROTONIX INJ 40 MG VIAL IVP SCH (09:59)
[2019-05-31] MEDS: TEFLARO IV SCH ×2 (09:59→22:00)
[2019-05-31] MEDS: NS IV SCH ×2 (09:59→22:00)
[2019-05-31] MEDS: LEVEMIR SC SCH (10:00)
--- NOTE | 2019-05-31 13:43 | PCM.PROG ---
Progress Note Progress Note for Day of Date of Exam: 05/31/19 Subjective Subjective: Pt reports she has not had a bowel movement since Saturday. Today's labs she is hyperkalemic K 7.1. Will order Kayexalate x2 doses and repeat K level today. Pt denies any cardiopulmonary symptoms. Past Medical Family Social History Past Med/Fam/Surg Hx: No changes since H&P Allergies: Allergies No Known Drug Allergies Allergy (Verified 05/28/19 14:38) Review of Systems ROS: No change since H&P Vital Signs and I&O's Vital Signs: Temperature 98.5 F Pulse Rate [Right Brachial] 76 Pulse Rate 72 Respiratory Rate 18 Blood Pressure [Left Calf] 132/93 Blood Pressure [Left Arm] 144/76 Blood Pressure [Right Arm] 140/64 Blood Pressure 146/71 O2 Sat by Pulse Oximetry 97 Intake and Output: Intake & Output 05/28/19 05/29/19 05/30/19 05/31/19 23:59 23:59 23:59 23:59 Intake Total 620 / 620 1460 / 1460 2481 / 2481 120 / 120 Output Total 500 / 500 1875 / 1875 3900 / 3900 800 / 800 Balance 120 / 120 -415 / -415 -1419 / -1419 -680 / -680 Physical Exam Oriented: Normal Eyes: Blurred Vision (CHRONIC) Ear: Normal Nose: Normal Throat: Normal Respiratory: Diminished Cardiovascular: Normal and Edema : Normal Auscultation: Bowel Sounds: Normal Tenderness: Normal Skin: Decreased Turgur, Red and Tender (LLE) Musculoskeletal: Deformity (RBKA) Psychiatric: Anxiety Speech Pattern: Clear and Appropriate Laboratory and Diagnostics Result Diagrams: 05/31/19 05:01 05/31/19 05:01 Labs: 05/29/19 10:55 Urine,Catheterized Urine Culture - Final Laboratory WBC 4.1 X10^3/uL (3.6-10.0) 05/31/19 05:01 RBC 2.77 X10^6/uL (3.5-5.4) L 05/31/19 05:01 Hgb 8.6 g/dL (12.0-16.0) L 05/31/19 05:01 Hct 25.6 % (36.0-47.0) L 05/31/19 05:01 MCV 92.4 fL (80.0-100.0) 05/31/19 05:01 MCH 31.0 pg (27.0-34.0) 05/31/19 05:01 MCHC 33.5 g/dL (33.0-35.0) 05/31/19 05:01 RDW 15.4 % (11.6-16.5) 05/31/19 05:01 Plt Count 204 X10^3/uL (150.0-450.0) 05/31/19 05:01 Plt Count Comment Adequate (ADEQUATE) 05/29/19 05:40 MPV 9.1 fL (7.4-11.0) 05/31/19 05:01 Neut % (Auto) 70.8 % (42.0-75.0) 05/31/19 05:01 Lymph % (Auto) 15.7 % (21.0-51.0) L 05/31/19 05:01 [place] % (Auto) 5.6 % (0.0-13.0) 05/31/19 05:01 Eos % (Auto) 6.0 % (0.9-2.9) H 05/31/19 05:01 Baso % (Auto) 1.9 % (0.2-1.0) H 05/31/19 05:01 Neut # (Auto) 2.9 x10^3/uL (2.2-4.8) 05/31/19 05:01 Lymph # (Auto) 0.6 X10^3/uL (1.3-2.9) L 05/31/19 05:01 [place] # (Auto) 0.2 x10^3/uL (0.3-0.8) L 05/31/19 05:01 Eos # (Auto) 0.2 x10^3/uL (0.0-0.2) 05/31/19 05:01 Baso # (Auto) 0.1 X10^3/uL (0.0-0.1) 05/31/19 05:01 Absolute Nucleated RBC 0.1 /100WBC 05/31/19 05:01 Plt Morphology Comment Normal (NORMAL) 05/29/19 05:40 RBC Morphology Abnormal (NORMAL) A 05/29/19 05:40 Hypochromasia Slight A 05/29/19 05:40 Sample Site Right brachial 05/29/19 08:58 ABG pH 7.310 (7.35-7.45) L 05/29/19 08:58 ABG pCO2 44.0 mmHg (35.0-45.0) 05/29/19 08:58 ABG pO2 133.0 mmHg (80.0-100.0) H 05/29/19 08:58 ABG HCO3 22.2 mmol/L (22-26) 05/29/19 08:58 ABG O2 Saturation 99.0 % (90-100) 05/29/19 08:58 ABG Base Excess -4.0 mmol/L (-2.0-2.0) L 05/29/19 08:58 Nathan Test Na 05/29/19 08:58 A-a Gradient 12.0 mmHg 05/29/19 08:58 FiO2 28.0 05/29/19 08:58 Blood Gas Comments Jona well aw 05/29/19 08:58 Sodium 138 mmol/L (136-145) 05/31/19 05:01 Corrected Sodium 142 mmol/L (136-145) 05/31/19 05:01 Potassium 7.1 mmol/L (3.5-5.1) H* 05/31/19 05:01 Chloride 108 mmol/L (98-107) H 05/31/19 05:01 Carbon Dioxide 23.4 mmol/L (21-32) 05/31/19 05:01 BUN 64 mg/dL (7-18) H 05/31/19 05:01 Creatinine 3.40 mg/dL (0.55-1.02) H 05/31/19 05:01 Est GFR (MDRD) Af Amer 19 (>60) L 05/31/19 05:01 Est GFR (MDRD) Non-Af 16 (>60) L 05/31/19 05:01 Glucose 272 mg/dL (65-99) H 05/31/19 05:01 POC Glucose (mg/dL) 166 mg/dL (65-99) H 05/31/19 11:59 Calcium 7.9 mg/dL (8.5-10.1) L 05/31/19 05:01 Corrected Calcium 9.0 mg/dL (8.5-10.1) 05/30/19 04:33 Iron 47 ug/dL (50-175) L 05/29/19 05:40 Transferrin 178 mg/dL (202-364) L 05/29/19 05:40 Ferritin 149 ng/mL (8-252) 05/29/19 05:40 Total Bilirubin 0.20 mg/dL (0.2-1.0) 05/30/19 04:33 AST 10 Units/L (15-37) L 05/30/19 04:33 ALT 26 Units/L (12-78) 05/30/19 04:33 Alkaline Phosphatase 80 Units/L (46-116) 05/30/19 04:33 Creatine Kinase 77 Units/L (26-192) 05/29/19 19:56 CK-MB (CK-2) 1.7 ng/mL (0-4.0) 05/29/19 19:56 CK/CKMB % Calc 2.2 % (<4) 05/29/19 19:56 Troponin I < 0.02 ng/mL (0-1.5) 05/29/19 19:56 Total Protein 6.2 g/dL (6.4-8.2) L 05/30/19 04:33 Albumin 2.5 g/dL (3.4-5.0) L 05/30/19 04:33 Globulin 3.7 g/dL (2.5-4.5) 05/30/19 04:33 Albumin/Globulin Ratio 0.7 Ratio (1.1-2.1) L 05/30/19 04:33 Vitamin B12 450 pg/mL (193-986) 05/29/19 05:40 Folate 3.8 ng/mL (>8.6) L 05/29/19 05:40 Specimen Type Catherized urine 05/29/19 10:55 Urine Color Pale yellow (YELLOW) 05/29/19 10:55 Urine Appearance Cloudy (CLEAR) 05/29/19 10:55 Urine pH 5.0 (5.0 - 8.0) 05/29/19 10:55 Ur Specific [place] 1.015 (1.000-1.030) 05/29/19 10:55 Urine Protein 3+ (NEGATIVE) 05/29/19 10:55 Urine Glucose (UA) 2+ (NEGATIVE) 05/29/19 10:55 Urine Ketones Negative (NEGATIVE) 05/29/19 10:55 Urine Occult Blood Negative (NEGATIVE) 05/29/19 10:55 Urine Nitrite Negative (NEGATIVE) 05/29/19 10:55 Urine Bilirubin Negative (NEGATIVE) 05/29/19 10:55 Urine Urobilinogen Normal (NORMAL) 05/29/19 10:55 Ur Leukocyte Esterase 1+ (NEGATIVE) 05/29/19 10:55 Urine RBC 0-2 /HPF (0-3) 05/29/19 10:55 Urine WBC 10-20 /HPF (0-5) A 05/29/19 10:55 Ur Squamous Epith Cells Few /HPF (NEGATIVE) 05/29/19 10:55 Amorphous Sediment Trace /HPF (NEGATIVE) 05/29/19 10:55 Urine Bacteria 2+ /HPF (NEGATIVE) 05/29/19 10:55 Urine Mucus Few /HPF (NEGATIVE) 05/29/19 10:55 Ur Culture Indicated? Yes/culture set up 05/29/19 10:55 Acetone, Semi-Quant Negative (NEGATIVE) 05/29/19 05:40 Plan (1) SOB (shortness of breath): Status: Acute Plan: IMPROVED SYMPTOMS, SPUTUMCX PENDING, RT W/ NEBS TX GENTLE IV HYDRATION, LIZARRAGA CATH STRICT I & OS US LLE NEGATIVE FOR DVT (2) CHF (congestive heart failure): Status: Acute (3) Dehydration: Status: Acute (4) CAD (coronary artery disease): Status: Chronic Qualifiers: Coronary Disease-Associated Artery/Lesion type: bypass graft, other Associated angina: with unspecified angina Qualified Code(s): I25.799 - Atherosclerosis of other coronary artery bypass graft(s) with unspecified angina pectoris (5) CKD (chronic kidney disease) stage 4, GFR 15-29 ml/min: Status: Chronic (6) Diabetes mellitus type 1: Status: Chronic Qualifiers: Diabetes mellitus complication status: with hyperglycemia Qualified Code(s): E10.65 - Type 1 diabetes mellitus with hyperglycemia (7) GERD (gastroesophageal reflux disease): Status: Chronic Qualifiers: Esophagitis presence: without esophagitis Qualified Code(s): K21.9 - Gastro-esophageal reflux disease without esophagitis
[2019-05-31] MEDS: KAYEXALATE SUSP PO SCH ×2 (14:24→22:21)
[2019-05-31] MEDS ORDERED: ZOFRAN INJ 4 MG VIAL IVP ONE (16:04)
--- NOTE | 2019-05-31 17:40 | RAD ---
HISTORY: CHF chest painStudy: KUBComparison: NoneFindings:Evaluation of the abdomen demonstrates a normal bowel gas pattern. No pathological soft tissue mass or calcification can be observed. The bony structures are grossly intact.IMPRESSION: 1. No evidence for acute abdominal pathology identified.Reported By:
[2019-05-31] MEDS ORDERED: PHENERGAN INJ 25 MG IM ONE ×2 (19:57→20:00)
[2019-05-31] MEDS ORDERED: LEVSIN/MAALOX/LIDOC VISC PO ONE (22:11)
[2019-05-31] MEDS: SNACK - Diabetic Appropriate PO SCH (22:21)
[2019-05-31 22:43] LABS: BASOPHILS # (AUTO) 0.1 X10^3/uL (0.0-0.1); BASOPHILS % (AUTO) 1.2 % (0.2-1.0); EOSINOPHILS % (AUTO) 0.3 % (0.9-2.9); HEMATOCRIT 30.3 % (36.0-47.0); HEMOGLOBIN 9.9 g/dL (12.0-16.0); LYMPHOCYTES # (AUTO) 0.3 X10^3/uL (1.3-2.9); LYMPHOCYTES % (AUTO) 4.8 % (21.0-51.0); MEAN CORPUSCULAR HEMOGLOBIN 30.8 pg (27.0-34.0); MEAN CORPUSCULAR HGB CONC 32.8 g/dL (33.0-35.0); MEAN CORPUSCULAR VOLUME 93.8 fL (80.0-100.0); MEAN PLATELET VOLUME 8.4 fL (7.4-11.0); MONOCYTES # (AUTO) 0.1 x10^3/uL (0.3-0.8); MONOCYTES % (AUTO) 2.3 % (0.0-13.0); NEUTROPHILS # (AUTO) 5.5 x10^3/uL (2.2-4.8); NEUTROPHILS % (AUTO) 91.4 % (42.0-75.0); PLATELET COUNT 199 X10^3/uL (150.0-450.0); RED BLOOD COUNT 3.23 X10^6/uL (3.5-5.4); RED CELL DISTRIBUTION WIDTH 15.2 % (11.6-16.5)
[2019-05-31 22:51] LABS: CALCIUM 8.4 mg/dL (8.5-10.1); CREATININE 3.38 mg/dL (0.55-1.02)
[2019-05-31 22:55] LABS: COR CA(FOR HYPOALB) 9.2 mg/dL (8.5-10.1); TOTAL PROTEIN 7.3 g/dL (6.4-8.2)
[2019-05-31 22:56] LABS: BAND NEUTROPHILS % 3 % (0-10)
[2019-05-31 22:57] LABS: PLATELET MORPHOLOGY COMMENT NORMAL (NORMAL)
[2019-05-31 22:59] LABS: LACTIC ACID 2.6 mmol/L (0.4-2.0)
--- NOTE | 2019-05-31 23:40 | CT ---
CT abdomen and pelvis without contrastIndication: Intractable nausea and vomitingComparison: 12/31/2018Technique: CT images of the abdomen and pelvis were obtained without contrast. Automatic exposure control was utilized.Findings: There are small layering bilateral pleural effusions with patchy ground-glass within the lower lobes, slightly more prominent on the left. No acute osseous abnormality. There is mild body wall edema.Evaluation of the abdominal pelvic viscera is limited without contrast. Prior cholecystectomy is noted. Within noncontrast limitations, the liver, spleen, stomach, pancreas, adrenals, and right kidney are unremarkable. There is a stable partially peripherally calcified hypoattenuating left upper pole renal lesion, but the left kidney is otherwise unremarkable. No radiopaque ureteral stone or hydroureter identified. The urinary bladder is mostly collapsed around a Ortega catheter. Uterus is present. No large pelvic mass or collection. No significant bowel thickening or dilatation of the lower GI tract. Normal appendix. There is small fat containing umbilical hernia. There is mild diffuse intraperitoneal fat stranding, with minimal layering pelvic free fluid.Impression: No acute abnormality to explain patient's symptoms identified, within non contrast limitations.Unchanged left upper pole renal lesion. Again, recommend nonemergent follow-up with outpatient adrenal protocol CT or MRI.Suggestion of volume overload, including small bilateral pleural effusions, anasarca, and trace ascites. Patchy bilateral lower lobe ground-glass, compatible with atelectasis or infiltrate, slightly worse on the left.Reported By:
[2019-06-01] MEDS: LOPRESSOR INJ 5 MG AMP IVP ONE (01:10)
[2019-06-01] MEDS ORDERED: PHENERGAN INJ 25 MG IM ONE (02:21)
[2019-06-01] MEDS: PHENERGAN INJ 25 MG IM PRN ×2 (02:39→21:22)
[2019-06-01] MEDS: NS 1000 ML 1,000 ML IV SCH ×3 (03:33→21:17)
[2019-06-01] MEDS: ZOFRAN INJ 4 MG VIAL IVP PRN ×3 (03:40→17:16)
[2019-06-01 05:35] LABS: BASOPHILS # (AUTO) 0.1 X10^3/uL (0.0-0.1); CALCIUM 8.3 mg/dL (8.5-10.1); CARBON DIOXIDE 22.4 mmol/L (21-32); CREATININE 3.32 mg/dL (0.55-1.02); EOSINOPHILS % (AUTO) 0.1 % (0.9-2.9); HEMATOCRIT 28.6 % (36.0-47.0); HEMOGLOBIN 9.5 g/dL (12.0-16.0); LYMPHOCYTES # (AUTO) 0.4 X10^3/uL (1.3-2.9); LYMPHOCYTES % (AUTO) 6.9 % (21.0-51.0); MEAN CORPUSCULAR HEMOGLOBIN 31.4 pg (27.0-34.0); MEAN CORPUSCULAR HGB CONC 33.1 g/dL (33.0-35.0); MEAN CORPUSCULAR VOLUME 94.8 fL (80.0-100.0); MEAN PLATELET VOLUME 9.6 fL (7.4-11.0); MONOCYTES # (AUTO) 0.2 x10^3/uL (0.3-0.8); MONOCYTES % (AUTO) 2.9 % (0.0-13.0); NEUTROPHILS # (AUTO) 5.5 x10^3/uL (2.2-4.8); NEUTROPHILS % (AUTO) 89.1 % (42.0-75.0); PLATELET COUNT 201 X10^3/uL (150.0-450.0); RED BLOOD COUNT 3.01 X10^6/uL (3.5-5.4); RED CELL DISTRIBUTION WIDTH 15.6 % (11.6-16.5); WHITE BLOOD COUNT 6.2 X10^3/uL (3.6-10.0)
[2019-06-01] MEDS: HumuLIN R SUBCUT PRN ×4 (06:15→22:10)
[2019-06-01] MEDS: APRESOLINE TAB 25 MG PO SCH ×3 (06:15→21:29)
[2019-06-01] MEDS ORDERED: D50W ABBOJECT SYR IV ONE (07:15)
[2019-06-01] MEDS ORDERED: HumuLIN R SUBCUT ONE (07:30)
[2019-06-01] MEDS ORDERED: KAYEXALATE SUSP ONE (08:14)
[2019-06-01] MEDS: KAYEXALATE SUSP PO SCH ×2 (08:19→21:36)
[2019-06-01] MEDS: PROTONIX INJ 40 MG VIAL IVP SCH (08:19)
[2019-06-01] MEDS ORDERED: DULCOLAX SUPPOSITORY 10 MG RECTAL ONE (08:27)
[2019-06-01] MEDS: LEVEMIR SC SCH (08:28)
[2019-06-01] MEDS: MORPHINE SULFATE INJ 2 MG INJ IVP PRN ×2 (08:28→17:15)
[2019-06-01] MEDS: PULMICORT NEB TX 0.5 MG NEB SCH ×2 (08:40→20:15)
[2019-06-01] MEDS: TEFLARO IV SCH ×2 (09:55→22:00)
[2019-06-01] MEDS: NS IV SCH ×2 (09:55→22:00)
--- NOTE | 2019-06-01 10:47 | RAD ---
History: Nausea and vomiting and abdominal distentionStudy: KUB, two viewsComparison: YesterdayFindings: There is moderate gaseous distention of the stomach and of proximal small bowel. There is no significant colonic gas. There are cholecystectomy clips. There are couple of clips in the pelvis. There is no soft tissue calcification.Impression: Increasing gaseous distention of stomach and proximal small bowel. Consider CT follow-up exam to rule out developing small-bowel obstructionReported By:
[2019-06-01] MEDS: APRESOLINE INJ 20 MG VIAL IVP PRN (11:12)
[2019-06-01 15:01] LABS: CALCIUM 8.6 mg/dL (8.5-10.1); CARBON DIOXIDE 23.3 mmol/L (21-32); CREATININE 3.39 mg/dL (0.55-1.02)
[2019-06-01] MEDS ORDERED: MORPHINE SULFATE INJ 2 MG INJ IVP PRN (17:33)
[2019-06-01] MEDS: XOPENEX 1.25 MG/3 ML NEBULE NEB SCH (20:15)
[2019-06-01] MEDS: SNACK - Diabetic Appropriate PO SCH (21:17)
[2019-06-01] MEDS ORDERED: TEFLARO IV ONE (21:40)
[2019-06-01] MEDS ORDERED: NS 50 ML IV 50 ML IV ONE (21:44)
[2019-06-02] MEDS: APRESOLINE INJ 20 MG VIAL IVP PRN ×2 (00:22→22:00)
[2019-06-02] MEDS ORDERED: LOPRESSOR INJ 5 MG AMP ONE (01:02)
[2019-06-02] MEDS: LOPRESSOR INJ 5 MG AMP IVP ONE (01:10)
[2019-06-02] MEDS: NS 1000 ML 1,000 ML IV SCH ×3 (01:15→22:13)
--- NOTE | 2019-06-02 02:01 | RAD ---
AP abdomenIndication: NG tube placementComparison: 06/01/2019Findings: The NG tube tip overlies the proximal stomach, with the distal side port in the region of the GE junction. Recommend advancing at least 5 cm. The visualized bowel gas pattern is unremarkable. No gross free air. Impression: High positioning of the gastric tube. Recommend advancing as above.Reported By:
[2019-06-02] MEDS: ZOFRAN INJ 4 MG VIAL IVP PRN ×2 (02:14→09:55)
--- NOTE | 2019-06-02 02:41 | RAD ---
AP abdomenIndication: NG tube placementComparison: Study from approximately 40 minutes priorFindings: There has been advancement of the gastric tube, with the tip and distal side port overlying the greater curvature of the stomach, in satisfactory position. The visualized bowel gas pattern is unremarkable.Impression: NG tube in satisfactory position.Reported By:
[2019-06-02] MEDS: PHENERGAN INJ 25 MG IM PRN (04:25)
[2019-06-02] MEDS: APRESOLINE TAB 25 MG PO SCH ×4 (05:08→21:14)
[2019-06-02] MEDS: HumuLIN R SUBCUT PRN ×3 (05:13→17:55)
[2019-06-02] MEDS: XOPENEX 1.25 MG/3 ML NEBULE NEB SCH ×4 (05:42→21:30)
[2019-06-02 05:53] LABS: BASOPHILS # (AUTO) 0.1 X10^3/uL (0.0-0.1); BASOPHILS % (AUTO) 1.1 % (0.2-1.0); EOSINOPHILS % (AUTO) 0.1 % (0.9-2.9); HEMATOCRIT 26.9 % (36.0-47.0); LYMPHOCYTES # (AUTO) 0.7 X10^3/uL (1.3-2.9); LYMPHOCYTES % (AUTO) 9.5 % (21.0-51.0); MEAN CORPUSCULAR HEMOGLOBIN 31.2 pg (27.0-34.0); MEAN CORPUSCULAR HGB CONC 33.4 g/dL (33.0-35.0); MEAN CORPUSCULAR VOLUME 93.6 fL (80.0-100.0); MEAN PLATELET VOLUME 9.1 fL (7.4-11.0); MONOCYTES # (AUTO) 0.3 x10^3/uL (0.3-0.8); MONOCYTES % (AUTO) 3.7 % (0.0-13.0); NEUTROPHILS # (AUTO) 6.1 x10^3/uL (2.2-4.8); NEUTROPHILS % (AUTO) 85.6 % (42.0-75.0); PLATELET COUNT 203 X10^3/uL (150.0-450.0); RED BLOOD COUNT 2.88 X10^6/uL (3.5-5.4); RED CELL DISTRIBUTION WIDTH 15.8 % (11.6-16.5); WHITE BLOOD COUNT 7.1 X10^3/uL (3.6-10.0)
[2019-06-02 06:09] LABS: CALCIUM 8.3 mg/dL (8.5-10.1); CARBON DIOXIDE 24.9 mmol/L (21-32); COR CA(FOR HYPOALB) 9.1 mg/dL (8.5-10.1); CREATININE 3.05 mg/dL (0.55-1.02); TOTAL PROTEIN 6.9 g/dL (6.4-8.2)
[2019-06-02] MEDS: PULMICORT NEB TX 0.5 MG NEB SCH ×2 (09:06→21:30)
[2019-06-02] MEDS: PROTONIX INJ 40 MG VIAL IVP SCH (09:55)
[2019-06-02] MEDS: MORPHINE SULFATE INJ 2 MG INJ IVP PRN (09:56)
[2019-06-02] MEDS: NS IV SCH ×2 (09:56→21:00)
[2019-06-02] MEDS: TEFLARO IV SCH ×2 (09:56→21:00)
[2019-06-02] MEDS: LEVEMIR SC SCH (11:35)
[2019-06-02 14:12] LABS: GASTRIC OCCULT BLOOD POSITIVE (NEGATIVE)
[2019-06-02 14:15] LABS: PH,GASTRIC FLUID 3
[2019-06-03] MEDS: MORPHINE SULFATE INJ 2 MG INJ IVP PRN ×4 (02:10→22:31)
[2019-06-03] MEDS: ZOFRAN INJ 4 MG VIAL IVP PRN ×2 (02:10→22:32)
[2019-06-03] MEDS: NS 1000 ML 1,000 ML IV SCH (04:12)
[2019-06-03] MEDS: APRESOLINE TAB 25 MG PO SCH ×3 (05:18→21:02)
[2019-06-03] MEDS: APRESOLINE INJ 20 MG VIAL IVP PRN ×2 (06:00→19:38)
[2019-06-03] MEDS: XOPENEX 1.25 MG/3 ML NEBULE NEB SCH ×3 (06:07→20:45)
[2019-06-03 06:16] LABS: BASOPHILS # (AUTO) 0.1 X10^3/uL (0.0-0.1); BASOPHILS % (AUTO) 1.4 % (0.2-1.0); EOSINOPHILS # (AUTO) 0.1 x10^3/uL (0.0-0.2); EOSINOPHILS % (AUTO) 2.2 % (0.9-2.9); HEMATOCRIT 26.5 % (36.0-47.0); HEMOGLOBIN 8.8 g/dL (12.0-16.0); LYMPHOCYTES % (AUTO) 17.3 % (21.0-51.0); MEAN CORPUSCULAR HEMOGLOBIN 30.9 pg (27.0-34.0); MEAN CORPUSCULAR HGB CONC 33.1 g/dL (33.0-35.0); MEAN CORPUSCULAR VOLUME 93.4 fL (80.0-100.0); MEAN PLATELET VOLUME 8.4 fL (7.4-11.0); MONOCYTES # (AUTO) 0.3 x10^3/uL (0.3-0.8); MONOCYTES % (AUTO) 5.1 % (0.0-13.0); NEUTROPHILS # (AUTO) 4.5 x10^3/uL (2.2-4.8); PLATELET COUNT 183 X10^3/uL (150.0-450.0); RED BLOOD COUNT 2.83 X10^6/uL (3.5-5.4); RED CELL DISTRIBUTION WIDTH 15.8 % (11.6-16.5); WHITE BLOOD COUNT 6.1 X10^3/uL (3.6-10.0)
[2019-06-03 06:25] LABS: LACTIC ACID 0.6 mmol/L (0.4-2.0)
[2019-06-03 06:30] LABS: ALBUMIN 2.8 g/dL (3.4-5.0); CARBON DIOXIDE 25.4 mmol/L (21-32); CREATININE 3.02 mg/dL (0.55-1.02); TOTAL PROTEIN 6.4 g/dL (6.4-8.2)
[2019-06-03] MEDS ORDERED: NS 1/2 1000 ML IV 1,000 ML IV ONE (08:47)
[2019-06-03] MEDS: PULMICORT NEB TX 0.5 MG NEB SCH ×2 (09:01→20:45)
[2019-06-03] MEDS: LASIX IVP SCH ×2 (09:04→20:02)
[2019-06-03] MEDS: ZITHROMAX INJ 500 MG VIAL 500 MG in D5W 250 ML IV 250 ML IV SCH ×2 (09:04→09:08)
[2019-06-03] MEDS: LEVEMIR SC SCH (09:05)
[2019-06-03] MEDS: PROTONIX INJ 40 MG VIAL IVP SCH ×2 (09:08→20:02)
[2019-06-03] MEDS: NS 1/2 1000 ML IV 1,000 ML IV SCH ×3 (09:32→22:31)
--- NOTE | 2019-06-03 10:38 | RAD ---
History: Small bowel obstructionStudy: KUB, two viewsComparison: June 02Findings: A nasogastric tube remains in the distal stomach. There are cholecystectomy clips. There is prominent fecal material in the right colon. There is no abnormal gaseous distention of small bowel visualized.Impression: Nasogastric tube in distal stomach, no acute disease demonstratedReported By:
[2019-06-03] MEDS: NS IV SCH ×2 (11:42→20:02)
[2019-06-03] MEDS: TEFLARO IV SCH ×2 (11:42→20:02)
[2019-06-03] MEDS ORDERED: REGLAN INJ 10 MG VIAL IVP ONE (17:56)
[2019-06-03] MEDS: NORCO 5/325 MG TAB PO PRN (19:37)
--- NOTE | 2019-06-03 19:51 | RAD ---
HISTORY: 38-year-old female with CHF and COPD.Study: Frontal view of the chest.Comparison: Chest radiograph 05/28/2019Findings:Enteric tube with distal tip not visualized with proximal side port overlying the left upper quadrant. Remaining surgical devices unchanged.The trachea is midline. The cardiac silhouette is stably enlarged with continued prominence interstitium and perihilar lung markings. No large effusion or pneumothorax. No large consolidation. Soft tissues are unremarkable. Osseous structures are unremarkable. IMPRESSION: 1. Enteric tube as above with no other interval change.Reported By:
[2019-06-04] MEDS: APRESOLINE INJ 20 MG VIAL IVP PRN ×2 (02:04→17:40)
[2019-06-04] MEDS: PHENERGAN INJ 25 MG IM PRN ×2 (02:53→21:33)
[2019-06-04] MEDS: APRESOLINE TAB 25 MG PO SCH ×3 (05:30→21:09)
[2019-06-04] MEDS: MORPHINE SULFATE INJ 2 MG INJ IVP PRN ×2 (06:33→17:26)
[2019-06-04 06:37] LABS: BASOPHILS # (AUTO) 0.1 X10^3/uL (0.0-0.1); BASOPHILS % (AUTO) 1.8 % (0.2-1.0); EOSINOPHILS # (AUTO) 0.2 x10^3/uL (0.0-0.2); EOSINOPHILS % (AUTO) 3.9 % (0.9-2.9); HEMATOCRIT 26.5 % (36.0-47.0); HEMOGLOBIN 8.6 g/dL (12.0-16.0); LYMPHOCYTES # (AUTO) 0.8 X10^3/uL (1.3-2.9); LYMPHOCYTES % (AUTO) 14.6 % (21.0-51.0); MEAN CORPUSCULAR HEMOGLOBIN 30.7 pg (27.0-34.0); MEAN CORPUSCULAR HGB CONC 32.7 g/dL (33.0-35.0); MEAN CORPUSCULAR VOLUME 94.1 fL (80.0-100.0); MEAN PLATELET VOLUME 8.6 fL (7.4-11.0); MONOCYTES # (AUTO) 0.3 x10^3/uL (0.3-0.8); MONOCYTES % (AUTO) 6.2 % (0.0-13.0); NEUTROPHILS % (AUTO) 73.5 % (42.0-75.0); PLATELET COUNT 167 X10^3/uL (150.0-450.0); RED BLOOD COUNT 2.81 X10^6/uL (3.5-5.4); RED CELL DISTRIBUTION WIDTH 15.6 % (11.6-16.5); WHITE BLOOD COUNT 5.4 X10^3/uL (3.6-10.0)
[2019-06-04] MEDS: XOPENEX 1.25 MG/3 ML NEBULE NEB SCH ×3 (06:47→20:30)
[2019-06-04 06:59] LABS: ALBUMIN 2.7 g/dL (3.4-5.0); CALCIUM 7.8 mg/dL (8.5-10.1); CARBON DIOXIDE 25.3 mmol/L (21-32); COR CA(FOR HYPOALB) 8.8 mg/dL (8.5-10.1); CREATININE 3.01 mg/dL (0.55-1.02); TOTAL PROTEIN 6.2 g/dL (6.4-8.2)
[2019-06-04] MEDS: PULMICORT NEB TX 0.5 MG NEB SCH ×2 (08:40→20:30)
[2019-06-04] MEDS: NS IV SCH (09:29)
[2019-06-04] MEDS: PROTONIX INJ 40 MG VIAL IVP SCH ×2 (09:29→21:08)
[2019-06-04] MEDS: TEFLARO IV SCH (09:29)
[2019-06-04] MEDS: LEVEMIR SC SCH (09:30)
[2019-06-04] MEDS: ZITHROMAX INJ 500 MG VIAL 500 MG in D5W 250 ML IV 250 ML IV SCH (09:38)
[2019-06-04] MEDS: ZOFRAN INJ 4 MG VIAL IVP PRN ×2 (10:11→21:09)
[2019-06-04] MEDS: NS 1/2 1000 ML IV 1,000 ML IV SCH ×2 (11:47→21:08)
--- NOTE | 2019-06-04 13:24 | RAD ---
History: Small bowel obstructionStudy: KUBComparison: YesterdayFindings: A nasogastric tube remains with the tip in the body of the stomach. There are cholecystectomy clips. There is prominent gas in proximal jejunum distended to approximately 2.5 cm diameter. There is mild nodularity of the wall. There is little gas in colon.Impression: Abnormal proximal small bowel suggestive of a gastroenteritis. No definite evidence for obstruction.Reported By:
[2019-06-04] MEDS: HumuLIN R SUBCUT PRN (17:25)
[2019-06-04] MEDS ORDERED: REGLAN INJ 10 MG VIAL IVP PRN (17:30)
[2019-06-04] MEDS ORDERED: NS 1/2 1000 ML IV 1,000 ML IV ONE (21:04)
[2019-06-04] MEDS: NORCO 5/325 MG TAB PO PRN (21:09)
[2019-06-04] MEDS ORDERED: MORPHINE SULFATE INJ 2 MG INJ IVP ONE (21:42)
[2019-06-05] MEDS: NS 1/2 1000 ML IV 1,000 ML IV SCH ×2 (04:04→18:36)
[2019-06-05] MEDS: XOPENEX 1.25 MG/3 ML NEBULE NEB SCH ×4 (04:59→20:07)
[2019-06-05] MEDS: APRESOLINE TAB 25 MG PO SCH ×3 (05:20→21:10)
[2019-06-05] MEDS: MORPHINE SULFATE INJ 2 MG INJ IVP PRN ×2 (05:30→13:41)
[2019-06-05 06:12] LABS: BASOPHILS # (AUTO) 0.1 X10^3/uL (0.0-0.1); BASOPHILS % (AUTO) 2.4 % (0.2-1.0); EOSINOPHILS # (AUTO) 0.2 x10^3/uL (0.0-0.2); EOSINOPHILS % (AUTO) 4.8 % (0.9-2.9); HEMATOCRIT 25.3 % (36.0-47.0); HEMOGLOBIN 8.4 g/dL (12.0-16.0); LYMPHOCYTES # (AUTO) 1.1 X10^3/uL (1.3-2.9); LYMPHOCYTES % (AUTO) 24.2 % (21.0-51.0); MEAN CORPUSCULAR HEMOGLOBIN 30.8 pg (27.0-34.0); MEAN CORPUSCULAR HGB CONC 33.1 g/dL (33.0-35.0); MEAN CORPUSCULAR VOLUME 93.2 fL (80.0-100.0); MEAN PLATELET VOLUME 8.7 fL (7.4-11.0); MONOCYTES # (AUTO) 0.3 x10^3/uL (0.3-0.8); MONOCYTES % (AUTO) 6.7 % (0.0-13.0); NEUTROPHILS # (AUTO) 2.9 x10^3/uL (2.2-4.8); NEUTROPHILS % (AUTO) 61.9 % (42.0-75.0); PLATELET COUNT 157 X10^3/uL (150.0-450.0); RED BLOOD COUNT 2.72 X10^6/uL (3.5-5.4); RED CELL DISTRIBUTION WIDTH 15.3 % (11.6-16.5); WHITE BLOOD COUNT 4.6 X10^3/uL (3.6-10.0)
[2019-06-05 06:34] LABS: ALBUMIN 2.4 g/dL (3.4-5.0); CALCIUM 7.7 mg/dL (8.5-10.1); CARBON DIOXIDE 26.5 mmol/L (21-32); CREATININE 2.81 mg/dL (0.55-1.02); TOTAL PROTEIN 5.6 g/dL (6.4-8.2)
[2019-06-05] MEDS: PROTONIX INJ 40 MG VIAL IVP SCH ×2 (08:46→21:10)
[2019-06-05] MEDS: ZITHROMAX INJ 500 MG VIAL 500 MG in D5W 250 ML IV 250 ML IV SCH (08:46)
[2019-06-05] MEDS: LEVEMIR SC SCH (08:48)
[2019-06-05] MEDS: PULMICORT NEB TX 0.5 MG NEB SCH ×2 (09:06→20:07)
[2019-06-05] MEDS: NORCO 5/325 MG TAB PO PRN (10:22)
[2019-06-05] MEDS: ZOFRAN INJ 4 MG VIAL IVP PRN (13:43)
--- NOTE | 2019-06-05 15:41 | RAD ---
History: Small bowel obstructionStudy: KUB, two viewsFindings: The nasogastric tube is been removed. There are cholecystectomy clips. Stomach is nondistended. There is increased gas in nondistended transverse colon. There is persistent mild gaseous distention of jejunum up to nearly 3 cm. There is a suggestion of thickened nodular sim of the jejunum. No gas is visualized in ileum.Impression: Persistent abnormal jejunum which may indicate a enteritis versus partial small bowel obstruction Reported By:
--- NOTE | 2019-06-05 16:06 | DR.PROGNOT ---
Hospital Progress Notes - Progress Note for Day of: Progress Note Date: 06/05/19 - Chief Complaint Chief Complaint: tolerating clear liquid , no vomiting . no significant abdominal pain today . abdominal xray still showing dilated proximal SB with air in the colon . afebrile . - Past Medical Family Social History Past Med/Fam/Surg Hx: No changes since H&P Allergies: Allergies No Known Drug Allergies Allergy (Verified 05/28/19 14:38) - Review Of Systems ROS: No change since H&P - Vital Signs Vital Signs: Temperature 98.8 F Pulse Rate [Right Brachial] 97 Pulse Rate 76 Respiratory Rate 12 Blood Pressure [Left Calf] 132/93 Blood Pressure [Left Arm] 144/76 Blood Pressure [Right Arm] 188/81 Blood Pressure 137/69 O2 Sat by Pulse Oximetry 98 - Physical Exam Oriented: Normal Eyes: Blurred Vision (CHRONIC) Ear: Normal Nose: Normal Throat: Normal Respiratory: Normal Cardiovascular: Normal, Edema : Normal GI:Auscultation: Decreased GI:Palpation: Normal GI: Tenderness: Diffuse (mild diffiuse tenderness BS+ but hypoactive .) Skin: Decreased Turgur, Red, Tender (LLE) Musculoskeletal: Deformity (RBKA) Psychiatric: Anxiety Speech Pattern: Clear, Appropriate - Laboratory and Diagnostics Result Diagrams: 06/05/19 04:37 06/05/19 04:37 Labs: 05/29/19 10:55 Urine,Catheterized Urine Culture - Final Laboratory WBC 4.6 X10^3/uL (3.6-10.0) 06/05/19 04:37 RBC 2.72 X10^6/uL (3.5-5.4) L 06/05/19 04:37 Hgb 8.4 g/dL (12.0-16.0) L 06/05/19 04:37 Hct 25.3 % (36.0-47.0) L 06/05/19 04:37 MCV 93.2 fL (80.0-100.0) 06/05/19 04:37 MCH 30.8 pg (27.0-34.0) 06/05/19 04:37 MCHC 33.1 g/dL (33.0-35.0) 06/05/19 04:37 RDW 15.3 % (11.6-16.5) 06/05/19 04:37 Plt Count 157 X10^3/uL (150.0-450.0) 06/05/19 04:37 Plt Count Comment Adequate (ADEQUATE) 05/31/19 22:35 MPV 8.7 fL (7.4-11.0) 06/05/19 04:37 Neut % (Auto) 61.9 % (42.0-75.0) 06/05/19 04:37 Lymph % (Auto) 24.2 % (21.0-51.0) 06/05/19 04:37 [place] % (Auto) 6.7 % (0.0-13.0) 06/05/19 04:37 Eos % (Auto) 4.8 % (0.9-2.9) H 06/05/19 04:37 Baso % (Auto) 2.4 % (0.2-1.0) H 06/05/19 04:37 Neut # (Auto) 2.9 x10^3/uL (2.2-4.8) 06/05/19 04:37 Lymph # (Auto) 1.1 X10^3/uL (1.3-2.9) L 06/05/19 04:37 [place] # (Auto) 0.3 x10^3/uL (0.3-0.8) 06/05/19 04:37 Eos # (Auto) 0.2 x10^3/uL (0.0-0.2) 06/05/19 04:37 Baso # (Auto) 0.1 X10^3/uL (0.0-0.1) 06/05/19 04:37 Absolute Nucleated RBC 0.0 /100WBC 06/05/19 04:37 Total Counted 100 05/31/19 22:35 Neutrophils % (Manual) 89 % (39-76) H 05/31/19 22:35 Band Neutrophils % 3 % (0-10) 05/31/19 22:35 Lymphocytes % (Manual) 5 % (13-43) L 05/31/19 22:35 Monocytes % (Manual) 3 % (4-9) L 05/31/19 22:35 Plt Morphology Comment Normal (NORMAL) 05/31/19 22:35 RBC Morphology Normal (NORMAL) 05/31/19 22:35 Hypochromasia Slight A 05/29/19 05:40 Sample Site Right brachial 05/29/19 08:58 ABG pH 7.310 (7.35-7.45) L 05/29/19 08:58 ABG pCO2 44.0 mmHg (35.0-45.0) 05/29/19 08:58 ABG pO2 133.0 mmHg (80.0-100.0) H 05/29/19 08:58 ABG HCO3 22.2 mmol/L (22-26) 05/29/19 08:58 ABG O2 Saturation 99.0 % (90-100) 05/29/19 08:58 ABG Base Excess -4.0 mmol/L (-2.0-2.0) L 05/29/19 08:58 Nathan Test Na 05/29/19 08:58 A-a Gradient 12.0 mmHg 05/29/19 08:58 FiO2 28.0 05/29/19 08:58 Blood Gas Comments Jona well aw 05/29/19 08:58 Sodium 145 mmol/L (136-145) 06/05/19 04:37 Corrected Sodium 146 mmol/L (136-145) H 06/05/19 04:37 Potassium 4.4 mmol/L (3.5-5.1) 06/05/19 04:37 Chloride 113 mmol/L (98-107) H 06/05/19 04:37 Carbon Dioxide 26.5 mmol/L (21-32) 06/05/19 04:37 BUN 42 mg/dL (7-18) H 06/05/19 04:37 Creatinine 2.81 mg/dL (0.55-1.02) H 06/05/19 04:37 Est GFR (MDRD) Af Amer 24 (>60) L 06/05/19 04:37 Est GFR (MDRD) Non-Af 20 (>60) L 06/05/19 04:37 Glucose 139 mg/dL (65-99) H 06/05/19 04:37 POC Glucose (mg/dL) 191 mg/dL (65-99) H 06/05/19 11:19 Lactic Acid 0.6 mmol/L (0.4-2.0) 06/03/19 05:26 Calcium 7.7 mg/dL (8.5-10.1) L 06/05/19 04:37 Corrected Calcium 9.0 mg/dL (8.5-10.1) 06/05/19 04:37 Iron 47 ug/dL (50-175) L 05/29/19 05:40 Transferrin 178 mg/dL (202-364) L 05/29/19 05:40 Ferritin 149 ng/mL (8-252) 05/29/19 05:40 Total Bilirubin 0.40 mg/dL (0.2-1.0) 06/05/19 04:37 AST 13 Units/L (15-37) L 06/05/19 04:37 ALT 13 Units/L (12-78) 06/05/19 04:37 Alkaline Phosphatase 53 Units/L (46-116) 06/05/19 04:37 Creatine Kinase 77 Units/L (26-192) 05/29/19 19:56 CK-MB (CK-2) 1.7 ng/mL (0-4.0) 05/29/19 19:56 CK/CKMB % Calc 2.2 % (<4) 05/29/19 19:56 Troponin I 0.03 ng/mL (0-1.5) 05/31/19 22:35 Total Protein 5.6 g/dL (6.4-8.2) L 06/05/19 04:37 Albumin 2.4 g/dL (3.4-5.0) L 06/05/19 04:37 Globulin 3.2 g/dL (2.5-4.5) 06/05/19 04:37 Albumin/Globulin Ratio 0.8 Ratio (1.1-2.1) L 06/05/19 04:37 Lipase 100 Units/L (73-393) 05/31/19 22:35 Vitamin B12 450 pg/mL (193-986) 05/29/19 05:40 Folate 3.8 ng/mL (>8.6) L 05/29/19 05:40 Specimen Type Catherized urine 05/29/19 10:55 Urine Color Pale yellow (YELLOW) 05/29/19 10:55 Urine Appearance Cloudy (CLEAR) 05/29/19 10:55 Urine pH 5.0 (5.0 - 8.0) 05/29/19 10:55 Ur Specific [place] 1.015 (1.000-1.030) 05/29/19 10:55 Urine Protein 3+ (NEGATIVE) 05/29/19 10:55 Urine Glucose (UA) 2+ (NEGATIVE) 05/29/19 10:55 Urine Ketones Negative (NEGATIVE) 05/29/19 10:55 Urine Occult Blood Negative (NEGATIVE) 05/29/19 10:55 Urine Nitrite Negative (NEGATIVE) 05/29/19 10:55 Urine Bilirubin Negative (NEGATIVE) 05/29/19 10:55 Urine Urobilinogen Normal (NORMAL) 05/29/19 10:55 Ur Leukocyte Esterase 1+ (NEGATIVE) 05/29/19 10:55 Urine RBC 0-2 /HPF (0-3) 05/29/19 10:55 Urine WBC 10-20 /HPF (0-5) A 05/29/19 10:55 Ur Squamous Epith Cells Few /HPF (NEGATIVE) 05/29/19 10:55 Amorphous Sediment Trace /HPF (NEGATIVE) 05/29/19 10:55 Urine Bacteria 2+ /HPF (NEGATIVE) 05/29/19 10:55 Urine Mucus Few /HPF (NEGATIVE) 05/29/19 10:55 Ur Culture Indicated? Yes/culture set up 05/29/19 10:55 Gastric Fluid pH 3 06/02/19 13:50 Gastric Occult Blood Positive (NEGATIVE) A 06/02/19 13:50 Acetone, Semi-Quant Negative (NEGATIVE) 06/01/19 04:48 - Assessment and Plan 1: ileus vs partial SBO . diabetic gastroperesis . will advance diet to full liquid . same Reglan . repeat abdominal xray in am. - Problem Patient Problems: Patient Problems Dehydration (Acute) E86.0 Hyperglycemia (Acute) R73.9 SOB (shortness of breath) (Acute) R06.02 CHF (congestive heart failure) (Acute) I50.9
[2019-06-05] MEDS: PHENERGAN INJ 25 MG IM PRN (18:10)
[2019-06-05] MEDS ORDERED: NS 1/2 1000 ML IV 1,000 ML IV ONE (18:12)
[2019-06-05] MEDS: APRESOLINE INJ 20 MG VIAL IVP PRN (18:22)
[2019-06-05] MEDS ORDERED: CATAPRES TAB 0.1 MG ONE (18:57)
[2019-06-05] MEDS ORDERED: LOPRESSOR TAB 50 MG ONE (18:57)
[2019-06-05] MEDS: CATAPRES TAB 0.1 MG PO SCH (18:59)
[2019-06-05] MEDS: LOPRESSOR TAB 50 MG PO SCH (18:59)
[2019-06-05] MEDS ORDERED: COLACE CAP 100 MG PO SCH (21:00)
[2019-06-06] MEDS: MORPHINE SULFATE INJ 2 MG INJ IVP PRN (04:15)
[2019-06-06] MEDS: APRESOLINE INJ 20 MG VIAL IVP PRN (04:25)
[2019-06-06] MEDS: XOPENEX 1.25 MG/3 ML NEBULE NEB SCH ×2 (05:20→15:40)
[2019-06-06 06:12] LABS: BASOPHILS # (AUTO) 0.1 X10^3/uL (0.0-0.1); BASOPHILS % (AUTO) 2.6 % (0.2-1.0); EOSINOPHILS # (AUTO) 0.3 x10^3/uL (0.0-0.2); EOSINOPHILS % (AUTO) 6.5 % (0.9-2.9); HEMATOCRIT 27.6 % (36.0-47.0); HEMOGLOBIN 9.1 g/dL (12.0-16.0); MEAN CORPUSCULAR HEMOGLOBIN 30.8 pg (27.0-34.0); MEAN CORPUSCULAR HGB CONC 33.1 g/dL (33.0-35.0); MEAN PLATELET VOLUME 9.1 fL (7.4-11.0); MONOCYTES # (AUTO) 0.3 x10^3/uL (0.3-0.8); MONOCYTES % (AUTO) 6.4 % (0.0-13.0); NEUTROPHILS # (AUTO) 3.4 x10^3/uL (2.2-4.8); NEUTROPHILS % (AUTO) 65.5 % (42.0-75.0); PLATELET COUNT 175 X10^3/uL (150.0-450.0); RED BLOOD COUNT 2.97 X10^6/uL (3.5-5.4); RED CELL DISTRIBUTION WIDTH 14.9 % (11.6-16.5); WHITE BLOOD COUNT 5.2 X10^3/uL (3.6-10.0)
[2019-06-06] MEDS: APRESOLINE TAB 25 MG PO SCH ×2 (06:22→14:01)
[2019-06-06 06:31] LABS: ALBUMIN 2.5 g/dL (3.4-5.0); CARBON DIOXIDE 27.4 mmol/L (21-32); COR CA(FOR HYPOALB) 9.2 mg/dL (8.5-10.1); CREATININE 2.93 mg/dL (0.55-1.02); TOTAL PROTEIN 5.9 g/dL (6.4-8.2)
[2019-06-06] MEDS: PULMICORT NEB TX 0.5 MG NEB SCH (09:15)
[2019-06-06] MEDS: LOPRESSOR TAB 50 MG PO SCH (09:18)
[2019-06-06] MEDS: PROTONIX INJ 40 MG VIAL IVP SCH (09:18)
[2019-06-06] MEDS: ZITHROMAX INJ 500 MG VIAL 500 MG in D5W 250 ML IV 250 ML IV SCH (09:18)
[2019-06-06] MEDS: CATAPRES TAB 0.1 MG PO SCH (09:18)
[2019-06-06] MEDS: MYLICON TAB 80 MG CHEW PO SCH ×2 (09:21→14:02)
[2019-06-06] MEDS: LEVEMIR SC SCH (09:26)
--- NOTE | 2019-06-06 09:31 | RAD ---
History: PainExam: KUBComparison: 10/22/2017Technique: A supine view the abdomen was obtained.Findings:There is mild gaseous distention of the stomach and there are mildly dilated loops of large and small bowel throughout the abdomen . There is no obvious free air. No renal stones are seen. The bones are intact.IMPRESSION: Questionable diffuse mild ileus which is more prominent.Reported By:
--- NOTE | 2019-06-06 10:37 | DR.PROGNOT ---
Hospital Progress Notes - Progress Note for Day of: Progress Note Date: 06/06/19 - Chief Complaint Chief Complaint: tolerating clear liquid , no vomiting but c/o mild vausea . no significant abdominal pain today . had BM yeserday . abdominal xray still showing dilated proximal SB with air in the colon . afebrile . - Past Medical Family Social History Past Med/Fam/Surg Hx: No changes since H&P Allergies: Allergies No Known Drug Allergies Allergy (Verified 05/28/19 14:38) - Review Of Systems ROS: No change since H&P - Vital Signs Vital Signs: Temperature 98.9 F Pulse Rate [Right Brachial] 97 Pulse Rate 62 Respiratory Rate 16 Blood Pressure [Left Calf] 132/93 Blood Pressure [Left Arm] 144/76 Blood Pressure [Right Arm] 188/81 Blood Pressure 163/79 O2 Sat by Pulse Oximetry 94 - Physical Exam Oriented: Normal Eyes: Blurred Vision (CHRONIC) Ear: Normal Nose: Normal Throat: Normal Respiratory: Normal Cardiovascular: Normal, Edema : Normal GI:Auscultation: Decreased GI:Palpation: Normal GI: Tenderness: Diffuse (mild diffiuse tenderness BS+ but hypoactive .) Skin: Decreased Turgur, Red, Tender (LLE) Musculoskeletal: Deformity (RBKA) Psychiatric: Anxiety Speech Pattern: Clear, Appropriate - Laboratory and Diagnostics Result Diagrams: 06/06/19 04:05 06/06/19 04:05 Labs: 05/29/19 10:55 Urine,Catheterized Urine Culture - Final Laboratory WBC 5.2 X10^3/uL (3.6-10.0) 06/06/19 04:05 RBC 2.97 X10^6/uL (3.5-5.4) L 06/06/19 04:05 Hgb 9.1 g/dL (12.0-16.0) L 06/06/19 04:05 Hct 27.6 % (36.0-47.0) L 06/06/19 04:05 MCV 93.0 fL (80.0-100.0) 06/06/19 04:05 MCH 30.8 pg (27.0-34.0) 06/06/19 04:05 MCHC 33.1 g/dL (33.0-35.0) 06/06/19 04:05 RDW 14.9 % (11.6-16.5) 06/06/19 04:05 Plt Count 175 X10^3/uL (150.0-450.0) 06/06/19 04:05 Plt Count Comment Adequate (ADEQUATE) 05/31/19 22:35 MPV 9.1 fL (7.4-11.0) 06/06/19 04:05 Neut % (Auto) 65.5 % (42.0-75.0) 06/06/19 04:05 Lymph % (Auto) 19.0 % (21.0-51.0) L 06/06/19 04:05 [place] % (Auto) 6.4 % (0.0-13.0) 06/06/19 04:05 Eos % (Auto) 6.5 % (0.9-2.9) H 06/06/19 04:05 Baso % (Auto) 2.6 % (0.2-1.0) H 06/06/19 04:05 Neut # (Auto) 3.4 x10^3/uL (2.2-4.8) 06/06/19 04:05 Lymph # (Auto) 1.0 X10^3/uL (1.3-2.9) L 06/06/19 04:05 [place] # (Auto) 0.3 x10^3/uL (0.3-0.8) 06/06/19 04:05 Eos # (Auto) 0.3 x10^3/uL (0.0-0.2) H 06/06/19 04:05 Baso # (Auto) 0.1 X10^3/uL (0.0-0.1) 06/06/19 04:05 Absolute Nucleated RBC 0.0 /100WBC 06/06/19 04:05 Total Counted 100 05/31/19 22:35 Neutrophils % (Manual) 89 % (39-76) H 05/31/19 22:35 Band Neutrophils % 3 % (0-10) 05/31/19 22:35 Lymphocytes % (Manual) 5 % (13-43) L 05/31/19 22:35 Monocytes % (Manual) 3 % (4-9) L 05/31/19 22:35 Plt Morphology Comment Normal (NORMAL) 05/31/19 22:35 RBC Morphology Normal (NORMAL) 05/31/19 22:35 Hypochromasia Slight A 05/29/19 05:40 Sample Site Right brachial 05/29/19 08:58 ABG pH 7.310 (7.35-7.45) L 05/29/19 08:58 ABG pCO2 44.0 mmHg (35.0-45.0) 05/29/19 08:58 ABG pO2 133.0 mmHg (80.0-100.0) H 05/29/19 08:58 ABG HCO3 22.2 mmol/L (22-26) 05/29/19 08:58 ABG O2 Saturation 99.0 % (90-100) 05/29/19 08:58 ABG Base Excess -4.0 mmol/L (-2.0-2.0) L 05/29/19 08:58 Nathan Test Na 05/29/19 08:58 A-a Gradient 12.0 mmHg 05/29/19 08:58 FiO2 28.0 05/29/19 08:58 Blood Gas Comments Jona well aw 05/29/19 08:58 Sodium 143 mmol/L (136-145) 06/06/19 04:05 Corrected Sodium 143 mmol/L (136-145) 06/06/19 04:05 Potassium 4.6 mmol/L (3.5-5.1) 06/06/19 04:05 Chloride 111 mmol/L (98-107) H 06/06/19 04:05 Carbon Dioxide 27.4 mmol/L (21-32) 06/06/19 04:05 BUN 43 mg/dL (7-18) H 06/06/19 04:05 Creatinine 2.93 mg/dL (0.55-1.02) H 06/06/19 04:05 Est GFR (MDRD) Af Amer 23 (>60) L 06/06/19 04:05 Est GFR (MDRD) Non-Af 19 (>60) L 06/06/19 04:05 Glucose 113 mg/dL (65-99) H 06/06/19 04:05 POC Glucose (mg/dL) 125 mg/dL (65-99) H 06/06/19 05:19 Lactic Acid 0.6 mmol/L (0.4-2.0) 06/03/19 05:26 Calcium 8.0 mg/dL (8.5-10.1) L 06/06/19 04:05 Corrected Calcium 9.2 mg/dL (8.5-10.1) 06/06/19 04:05 Iron 47 ug/dL (50-175) L 05/29/19 05:40 Transferrin 178 mg/dL (202-364) L 05/29/19 05:40 Ferritin 149 ng/mL (8-252) 05/29/19 05:40 Total Bilirubin 0.50 mg/dL (0.2-1.0) 06/06/19 04:05 AST 11 Units/L (15-37) L 06/06/19 04:05 ALT 13 Units/L (12-78) 06/06/19 04:05 Alkaline Phosphatase 57 Units/L (46-116) 06/06/19 04:05 Creatine Kinase 77 Units/L (26-192) 05/29/19 19:56 CK-MB (CK-2) 1.7 ng/mL (0-4.0) 05/29/19 19:56 CK/CKMB % Calc 2.2 % (<4) 05/29/19 19:56 Troponin I 0.03 ng/mL (0-1.5) 05/31/19 22:35 Total Protein 5.9 g/dL (6.4-8.2) L 06/06/19 04:05 Albumin 2.5 g/dL (3.4-5.0) L 06/06/19 04:05 Globulin 3.4 g/dL (2.5-4.5) 06/06/19 04:05 Albumin/Globulin Ratio 0.7 Ratio (1.1-2.1) L 06/06/19 04:05 Lipase 100 Units/L (73-393) 05/31/19 22:35 Vitamin B12 450 pg/mL (193-986) 05/29/19 05:40 Folate 3.8 ng/mL (>8.6) L 05/29/19 05:40 Specimen Type Catherized urine 05/29/19 10:55 Urine Color Pale yellow (YELLOW) 05/29/19 10:55 Urine Appearance Cloudy (CLEAR) 05/29/19 10:55 Urine pH 5.0 (5.0 - 8.0) 05/29/19 10:55 Ur Specific [place] 1.015 (1.000-1.030) 05/29/19 10:55 Urine Protein 3+ (NEGATIVE) 05/29/19 10:55 Urine Glucose (UA) 2+ (NEGATIVE) 05/29/19 10:55 Urine Ketones Negative (NEGATIVE) 05/29/19 10:55 Urine Occult Blood Negative (NEGATIVE) 05/29/19 10:55 Urine Nitrite Negative (NEGATIVE) 05/29/19 10:55 Urine Bilirubin Negative (NEGATIVE) 05/29/19 10:55 Urine Urobilinogen Normal (NORMAL) 05/29/19 10:55 Ur Leukocyte Esterase 1+ (NEGATIVE) 05/29/19 10:55 Urine RBC 0-2 /HPF (0-3) 05/29/19 10:55 Urine WBC 10-20 /HPF (0-5) A 05/29/19 10:55 Ur Squamous Epith Cells Few /HPF (NEGATIVE) 05/29/19 10:55 Amorphous Sediment Trace /HPF (NEGATIVE) 05/29/19 10:55 Urine Bacteria 2+ /HPF (NEGATIVE) 05/29/19 10:55 Urine Mucus Few /HPF (NEGATIVE) 05/29/19 10:55 Ur Culture Indicated? Yes/culture set up 05/29/19 10:55 Gastric Fluid pH 3 06/02/19 13:50 Gastric Occult Blood Positive (NEGATIVE) A 06/02/19 13:50 Acetone, Semi-Quant Negative (NEGATIVE) 06/01/19 04:48 - Assessment and Plan 1: ileus. diabetic gastroperesis . will advance diet to soft diet . same Reglan IV and make it TID. repeat abdominal xray in am. OOB and ambulate .. - Problem Patient Problems: Patient Problems Dehydration (Acute) E86.0 Hyperglycemia (Acute) R73.9 SOB (shortness of breath) (Acute) R06.02 CHF (congestive heart failure) (Acute) I50.9
[2019-06-06] MEDS: NORCO 5/325 MG TAB PO PRN (10:43)
[2019-06-06] MEDS ORDERED: REGLAN INJ 10 MG VIAL IVP SCH (14:00)
[2019-06-06 17:09] VITALS: BP 114/61
== END 2019-06-06 18:03 | disposition home or self-care (01) | DRG 292 ==
LOC: ER 14:30 → MED/SURG 17:06 → ICU 06-02 01:15
PROVIDERS: ADMIT Internal Medicine; ATTEND Internal Medicine
DX: Z79.4 Long term (current) use of insulin; I13.0 Hypertensive heart and chronic kidney disease with heart failure and stage 1 through stage 4 chronic kidney disease, or unspecified chronic kidney disease; J20.9 Acute bronchitis, unspecified; Z89.432 Acquired absence of left foot; E10.65 Type 1 diabetes mellitus with hyperglycemia; R06.02 Shortness of breath; I48.91 Unspecified atrial fibrillation; E87.5 Hyperkalemia; K59.09 Other constipation; N17.9 Acute kidney failure, unspecified; I50.9 Heart failure, unspecified; L03.116 Cellulitis of left lower limb; R94.31 Abnormal electrocardiogram [ECG] [EKG]; E86.0 Dehydration; R60.1 Generalized edema; K52.89 Other specified noninfective gastroenteritis and colitis; E10.43 Type 1 diabetes mellitus with diabetic autonomic (poly)neuropathy; R26.89 Other abnormalities of gait and mobility; R11.2 Nausea with vomiting, unspecified; N18.4 Chronic kidney disease, stage 4 (severe); K21.9 Gastro-esophageal reflux disease without esophagitis; I25.799 Atherosclerosis of other coronary artery bypass graft(s) with unspecified angina pectoris; Z89.511 Acquired absence of right leg below knee; K56.600 Partial intestinal obstruction, unspecified as to cause; K31.84 Gastroparesis
CPT/HCPCS: 36415; 36600; 71010; 71045; 74000; 74018; 74176; 80048; 80053; 81001; 82009; 82271; 82550; 82553; 82607; 82728; 82746; 82803; 83540; 83605; 83690; 84132; 84466; 84484; 85025; 87086; 93005; 93971; 94640; 94760; 96365; 96367; 96374; 96375; 97162; 99284; A4222; C9113; J0360; J0456; J0712; J1815; J1885; J1940; J2270; J2405; J2550; J2765; J3490; J7030; J7050; J7060; J7626

== ENCOUNTER 2019-10-18 23:05 | Observation (INO) ==
--- NOTE | 2019-10-18 23:12 | DR.GENAD ---
HPI Time Seen Time Seen by Provider: 10/18/19 23:08 HPI Comment HPI Comment: PATIENT IS 39YR OLD FEMALE IN ER VIA EMS WITH INCREASING SOB, PAIN AND SWELLING LEFT LEG AND ELEVATED BLOOD PRESSURE THAT IS WORSE TODAY. PATIENT IS ALSO HAVING CHEST TIGHTNESS, SHE IS WEAK AND ALSO HAVING HEADAHE. PATIENT H AVE DIABETES AND HYPERTENSION AND BP AND GLUCOSE ARE ELEVATED IN ER. DENIES FEVER OR DYSURIA. HER HOME MEDICATION DID NOT HELP. LEFT LEG IS SWOLLEN. IT IS PAINFULL AND HAVING RESTLESS LEG. 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 Complaint/Symptoms Chief Complaint Doctors Comments: INCREASING SOB, LEFT LEG SWELLING PAIN WITH ELEVATED BLOOD PRESSURE WORSE TODAY. COVID-19 Coronavirus risk:travel/contact w/high risk person: No Has patient experienced Coronavirus symptoms: No Nurses notes reviewed Nurses Notes Review: Yes Source History Provided: Patient Mode of Arrival Mode of Arrival: EMS Timing Came on: Suddenly Duration Duration: Constant Duration: Days Severity Severity: Moderate Modifying Factors Worsens:: EXERTION. Improves:: REST. Associated Signs and Symptoms Associated Signs and Symptoms: WEAKNESS. Other History Other History: DM AND HTN. PMH PMH Past Medical History: Diabetes Past Surgical History: Yes Surgical History: , CABG/Valve Surgery, Ortho Surgery and Other Family History Family Medical History: Diabetes Mellitus, Cancer and LA Social History Do you use any recreational Drugs:: No ROS Review of Systems Constitutional: No Symptoms Reported, See HPI, Weakness and Fatigue; negative Fever Eyes: No Symptoms Reported and See HPI ENTM: No Symptoms Reported and See HPI Respiratoy: No Symptoms Reported, See HPI, Productive Cough and Short of Breath; negative Wheezing Cardiovascular: No Symptoms Reported, See HPI, Chest Pain and Edema; negative Palpitations Gastrointestinal/Abdominal: No Symptoms Reported, See HPI and Abdominal Pain; negative Diarrhea, Nausea and Vomiting Genitourinary: No Symptoms Reported and See HPI Neurological: No Symptoms Reported, See HPI, Headache and Weakness; negative Dizziness Musculoskeletal: See HPI, Leg (LEFT LEG PAIN. ) and Other (RT BKA, LEFT TOES AMPUTATED.); negative Muscle Pain Integumentary: No Symptoms Reported and See HPI Hematologic/Lymphatic: No Symptoms Reported and See HPI Endocrine: No Symptoms Reported, See HPI, Increased Thirst and Increased Urine; negative Decreased Appetite Psychiatric: No Symptoms Reported and See HPI All Other Systems: Reviewed and Negative PE Vital Signs Vitals: Temperature 98.1 F Pulse Rate [Left] 62 Pulse Rate 52 Respiratory Rate 18 Blood Pressure [Left Calf] 132/93 Blood Pressure [Left Arm] 186/86 Blood Pressure 209/103 O2 Sat by Pulse Oximetry 100 General Limitations: No Limitations General Appearance: Alert and In No Apparent Distress Head Head Exam: Normal Inspection Eyes Eye exam: Normal Appearance ENT ENT Exam: Normal Exam, Normal Oropharynx, Normal External Ear Exam and TM's Normal Bilaterally External Ear Exam: Normal External Inspection; negative Mastoid Tenderness TM/Canal Exam: Bilateral: Normal Nose Exam: Normal Nose Exam; negative Sinus Tenderness, Nasal Deviation and Septal Hematoma Mouth Exam: Normal Inspection; negative Lip Swelling and Tongue Swelling Throat Exam: Normal Inspection; negative Tonsillar Erythema, Tonsillomegaly and Tonsillar Exudate Neck Neck Exam: Normal Inspection and Trachea Midline; negative Tenderness and Lymphadenopathy Chest Chest Inspection: Normal Inspection and Symmetric Chest Wall Rise; negative Tenderness Respiratory Respiratory Exam: Normal Lung Sounds Bilat and Respiratory Distress; negative Accessory Muscle Use and Chest Wall Tenderness Respiratory Exam: Bilateral: Rhonchi and Lower: Rhonchi Cardiovascular Cardiovascular Exam: Regular Rate, Normal Rhythm and Normal Heart Sounds; negative Systolic Murmur and Diastolic Murmur Abdominal Exam Abdominal Exam: Normal Inspection, Normal Bowel Sounds, Soft and Tenderness Extremities Extremities Exam: Normal Inspection, Edema (LEFT LEG.) and Other (RT BKA. AMPUTATION TOES LEFT FOOT.) Back Back Exam: Normal Inspection; negative (R) CVA Tenderness, (L) CVA Tenderness and Paraspinal Tenderness Neurologic Neurological Exam: Alert and Oriented X3; negative Motor Sensory Deficit Psychiatric Psychiatric Exam: Normal Affect and Normal Mood Skin Skin Exam: Warm, Dry, Intact and Normal Color MDM Differential Diagnosis Differential Diagnosis: CHF, PNEUMONIA, [place], DKA, UTI, DEHYDRATION. COURSE Treatment Treatment: SEE ORDERS. Consultation Consultation Comments: DISCUSSE PATIENT [facility] HERNAN[facility] AND HE WILL ADMIT PATIENT. Education/Counseling Education/Counseling: Patient Educated On: Diagnosis ROR Labs Reviewed Laboratory Results Reviewed?: Yes Result Diagrams: 10/20/19 04:26 10/20/19 04:26 Laboratory: WBC 6.2 X10^3/uL (3.6-10.0) 10/18/19 23:22 RBC 3.46 X10^6/uL (3.5-5.4) L 10/18/19 23:22 Hgb 10.5 g/dL (12.0-16.0) L 10/18/19 23:22 Hct 30.8 % (36.0-47.0) L 10/18/19 23:22 MCV 88.9 fL (80.0-100.0) 10/18/19 23:22 MCH 30.2 pg (27.0-34.0) 10/18/19 23: MCHC 34.0 g/dL (33.0-35.0) 10/18/19 23: RDW 15.7 % (11.6-16.5) 10/18/19 23: Plt Count 282 X10^3/uL (150.0-450.0) 10/18/19 23: MPV 9.2 fL (7.4-11.0) 10/18/19 23: Neut % (Auto) 69.2 % (42.0-75.0) 10/18/19 23: Lymph % (Auto) 17.4 % (21.0-51.0) L 10/18/19 23: [place] % (Auto) 5.3 % (0.0-13.0) 10/18/19 23: Eos % (Auto) 5.3 % (0.9-2.9) H 10/18/19 23: Baso % (Auto) 2.8 % (0.2-1.0) H 10/18/19 23:22 Neut # (Auto) 4.3 x10^3/uL (2.2-4.8) 10/18/19 23: Lymph # (Auto) 1.1 X10^3/uL (1.3-2.9) L 10/18/19 23:22 [place] # (Auto) 0.3 x10^3/uL (0.3-0.8) 10/18/19 23: Eos # (Auto) 0.3 x10^3/uL (0.0-0.2) H 10/18/19 23:22 Baso # (Auto) 0.2 X10^3/uL (0.0-0.1) H 10/18/19 23: Absolute Nucleated RBC 0.1 /100WBC 10/18/19 23:22 Sodium 138 mmol/L (136-145) 10/18/19 23:22 Corrected Sodium 142 mmol/L (136-145) 10/18/19 23:22 Potassium 3.8 mmol/L (3.5-5.1) 10/18/19 23:22 Chloride 102 mmol/L (98-107) 10/18/19 23:22 Carbon Dioxide 25.7 mmol/L (21-32) 10/18/19 23:22 BUN 25 mg/dL (7-18) H 10/18/19 23:22 Creatinine 2.69 mg/dL (0.55-1.02) H 10/18/19 23:22 Est GFR (MDRD) Af Amer 25 (>60) L 10/18/19 23:22 Est GFR (MDRD) Non-Af 21 (>60) L 10/18/19 23:22 Glucose 247 mg/dL (65-99) H 10/18/19 23:22 Calcium 8.2 mg/dL (8.5-10.1) L 10/18/19 23:22 Corrected Calcium 9.3 mg/dL (8.5-10.1) 10/18/19 23:22 Total Bilirubin 0.80 mg/dL (0.2-1.0) 10/18/19 23:22 AST 12 Units/L (15-37) L 10/18/19 23:22 ALT 15 Units/L (12-78) 10/18/19 23:22 Alkaline Phosphatase 106 Units/L (46-116) 10/18/19 23:22 Creatine Kinase 109 Units/L (26-192) 10/18/19 23:22 CK-MB (CK-2) 1.7 ng/mL (0-4.0) 10/18/19 23:22 CK/CKMB % Calc 1.6 % (<4) 10/18/19 23:22 Troponin I < 0.02 ng/mL (0-1.5) 10/18/19 23:22 Total Protein 7.0 g/dL (6.4-8.2) 10/18/19 23:22 Albumin 2.6 g/dL (3.4-5.0) L 10/18/19 23:22 Globulin 4.4 g/dL (2.5-4.5) 10/18/19 23:22 Albumin/Globulin Ratio 0.6 Ratio (1.1-2.1) L 10/18/19 23:22 Acetone, Semi-Quant Negative (NEGATIVE) 10/18/19 23:22 XRAY XRAY Interpreted by: Radiologist (REPORTS NOTED AND DISCUSSED WITH PATIENT.) EKG Rate: 51 [place]: LAD Rhythm: SB Block: None Hypertrophy: None ST: Nonsp Opioid Opioid Risk Tool Age (Owen box if 16-45): No History of Preadolescent Sexual Abuse: No Total: 0 Total Score Risk Category: Low Risk Copyright: Hussein predicting aberrant behaviors Diagnosis Discharge Problem: Hypertensive emergency, Acute hyperglycemia CHF (congestive heart failure) Qualifiers: Heart failure type: combined systolic and diastolic Heart failure chronicity: acute Qualified Code(s): I50.41 - Acute combined systolic (congestive) and diastolic (congestive) heart failure Instructions Instructions: Hyperglycemia, Haxa-qz-Fjuy Form - Daily Diabetes Record How to Take Your Blood Pressure, Cppp-ff-Ryad Urinary Tract Infection, Adult, Ufns-dg-Azfe Chronic Kidney Disease, Adult, Jgzo-du-Iwaq Hypertension, Fymx-bu-Gnfc Form - Blood Pressure Record Sheet Heart Failure, Zefr-zw-Mlyh Managing Your Hypertension Type 2 Diabetes Mellitus, Diagnosis, Adult, Vqge-zp-Lyjs Forms: Excuse From Work Precautions for COVID19 Patient Portal Social Distancing
[2019-10-18 23:25] VITALS: BMI 40.2
[2019-10-18 23:32] LABS: EOSINOPHILS # (AUTO) 0.3 x10^3/uL (0.0-0.2); MONOCYTES # (AUTO) 0.3 x10^3/uL (0.3-0.8); NEUTROPHILS # (AUTO) 4.3 x10^3/uL (2.2-4.8)
[2019-10-18 23:38] LABS: BASOPHILS # (AUTO) 0.2 X10^3/uL (0.0-0.1); BASOPHILS % (AUTO) 2.8 % (0.2-1.0); EOSINOPHILS % (AUTO) 5.3 % (0.9-2.9); HEMATOCRIT 30.8 % (36.0-47.0); HEMOGLOBIN 10.5 g/dL (12.0-16.0); LYMPHOCYTES # (AUTO) 1.1 X10^3/uL (1.3-2.9); LYMPHOCYTES % (AUTO) 17.4 % (21.0-51.0); MEAN CORPUSCULAR HEMOGLOBIN 30.2 pg (27.0-34.0); MEAN CORPUSCULAR VOLUME 88.9 fL (80.0-100.0); MEAN PLATELET VOLUME 9.2 fL (7.4-11.0); MONOCYTES % (AUTO) 5.3 % (0.0-13.0); NEUTROPHILS % (AUTO) 69.2 % (42.0-75.0); PLATELET COUNT 282 X10^3/uL (150.0-450.0); RED BLOOD COUNT 3.46 X10^6/uL (3.5-5.4); RED CELL DISTRIBUTION WIDTH 15.7 % (11.6-16.5); WHITE BLOOD COUNT 6.2 X10^3/uL (3.6-10.0)
--- NOTE | 2019-10-18 23:44 | RAD ---
STUDY: CHEST, 1 VIEWCOMPARISON: September 17, 2019HISTORY: SOB AT NIGHT AND LEFT LEG SWELLING AND RESTLESSNESSFINDINGS:Status post midline sternotomy wires are again noted. The cardiomediastinal contour is enlarged but stable from prior study without radiographic evidence of pulmonary edema. No consolidation, pleural effusion, or pneumothorax is seen.IMPRESSION:There is no significant change from prior studyElectronically signed by: Matthew Pang (Oct 18, 2019 23:43:11)
[2019-10-18 23:45] LABS: BLOOD UREA NITROGEN 25 mg/dL (7-18); CALCIUM 8.2 mg/dL (8.5-10.1); CARBON DIOXIDE 25.7 mmol/L (21-32); CHLORIDE 102 mmol/L (98-107); COR NA(FOR HYPERGLY) 142 mmol/L (136-145); CREATININE 2.69 mg/dL (0.55-1.02); SODIUM 138 mmol/L (136-145); TROPONIN I < 0.02 ng/mL (0-1.5); eGFR NON BLACK RACES 21 (>60)
[2019-10-18 23:49] LABS: ALANINE AMINOTRANSFERASE 15 Units/L (12-78); ALBUMIN 2.6 g/dL (3.4-5.0); ALKALINE PHOSPHATASE 106 Units/L (46-116); ASPARTATE AMINO TRANSFERASE 12 Units/L (15-37); CKMB % 1.6 % (<4); COR CA(FOR HYPOALB) 9.3 mg/dL (8.5-10.1); CREATINE KINASE 109 Units/L (26-192); CREATINE KINASE MB 1.7 ng/mL (0-4.0)
[2019-10-19] MEDS ORDERED: CATAPRES TAB 0.2 MG PO ONE (01:18)
[2019-10-19] MEDS ORDERED: CATAPRES TAB 0.2 MG ONE (01:24)
[2019-10-19] MEDS ORDERED: DEMEROL INJ IVP ONE (01:42)
[2019-10-19] MEDS ORDERED: ZOFRAN INJ 4 MG VIAL IVP ONE (01:42)
[2019-10-19] MEDS ORDERED: ZOFRAN INJ 4 MG VIAL ONE ×2 (01:52→06:19)
[2019-10-19] MEDS ORDERED: DEMEROL INJ ONE ×2 (01:52→06:19)
[2019-10-19] MEDS ORDERED: NORMODYNE INJ 100 MG VIAL IVP ONE (03:38)
[2019-10-19] MEDS ORDERED: NORMODYNE INJ 20 MG VIAL ONE (03:42)
[2019-10-19] MEDS ORDERED: HumuLIN R SUBCUT PRN (03:43)
[2019-10-19] MEDS ORDERED: LASIX IVP ONE (04:32)
[2019-10-19] MEDS ORDERED: LASIX ONE (04:35)
[2019-10-19] MEDS ORDERED: HumuLIN R ONE (04:36)
[2019-10-19] MEDS ORDERED: PROCARDIA XL PO ONE (05:18)
[2019-10-19] MEDS: DEMEROL INJ IVP PRN ×3 (06:25→20:00)
[2019-10-19] MEDS: ZOFRAN INJ 4 MG VIAL IVP PRN ×3 (06:28→23:13)
[2019-10-19] MEDS: NS 1000 ML 1,000 ML IV SCH ×2 (08:02→20:41)
[2019-10-19] MEDS: HumuLIN R SC PRN ×3 (08:03→20:59)
[2019-10-19 09:54] LABS: CKMB % 1.6 % (<4); CREATINE KINASE 102 Units/L (26-192); CREATINE KINASE MB 1.6 ng/mL (0-4.0); TROPONIN I < 0.02 ng/mL (0-1.5)
[2019-10-19 09:55] LABS: BILIRUBIN,URINE NEGATIVE (NEGATIVE); BLOOD/HEMOGLOBIN,URINE 5+ (NEGATIVE); GLUCOSE, URINE 3+ (NEGATIVE); KETONES,URINE NEGATIVE (NEGATIVE); LEUKOCYTE ESTERASE ,URINE 3+ (NEGATIVE); NITRITES,URINE NEGATIVE (NEGATIVE); PROTEIN,URINE 4+ (NEGATIVE); UROBILINOGEN,URINE NORMAL (NORMAL)
[2019-10-19 10:29] LABS: APPEARANCE,URINE HAZY (CLEAR); COLOR,URINE YELLOW (YELLOW)
[2019-10-19 10:30] LABS: BACTERIA,URINE 4+ /HPF (NEGATIVE); RBC,URINE 0-2 /HPF (0-3); SQUAMOUS EPITHELIAL CELL,UR MODERATE /HPF (NEGATIVE)
[2019-10-19] MEDS: ROCEPHIN VIAL 1 GRAM 1 G in NS 100 ML IV + SPIKE MINIBAG* 100 ML IV SCH (13:44)
[2019-10-19 16:29] LABS: CKMB % 1.4 % (<4); CREATINE KINASE 116 Units/L (26-192); CREATINE KINASE MB 1.6 ng/mL (0-4.0); TROPONIN I < 0.02 ng/mL (0-1.5)
--- NOTE | 2019-10-19 16:38 | DR.H&P ---
H&P - History & Physical for Day of: H&P Date: 10/19/19 - Chief Complaint Chief Complaint: SOB, LEG SWELLING - History of Present Illness History of Present Illness: PT IS 39 WF ER ADMISSION WITH CO SOB AND INCREASED SWELLING TO LEGS WITH LLE LEG PAIN. PT HAS PMH OF CHF, COPD, CAD, DM, RENAL DISEASE. PT HAD ER FOLLOW UP 2 WEEKS AGO FOR SAME COMPLAINTS, SWABBED FOR COVID19 AT THAT TIME, WHICH WAS NEGATIVE. PT DENIES ANY INCREASED CCC OR WHE EZING. - Past Medical History Past Medical History: CHF, Diabetes, Hypertension - Past Surgical History Surgical History: CABG/Valve Surgery, , Ortho Surgery, Other - Family History Family Medical History: Diabetes Mellitus, Cancer, [place] - Social History Does patient currently use any type of tobacco product: No Have you used tobacco products in the last 12 months: No Type of Tobacco Use: None Does any household member use tobacco: No Alcohol Use: None Drug Use: None - Medications Home Medications: No Known Drug Allergies Allergy (Verified 05/28/19 14:38) CONTINUE taking the following medications atorvastatin [Lipitor] 20 mg PO DAILY 10/19/19 [History] clopidogrel 75 mg PO DAILY 10/19/19 [History] insulin aspart U-100 [Novolog Flexpen U-100 Insulin] See Rx Instructions .ROUTE .COMPLEX 10/19/19 [History] insulin detemir U-100 [Levemir FlexTouch U-100 Insuln] 20 unit SUBCUT BID 10/19/19 [History] metoclopramide HCl [Reglan] 10 mg PO DIRECTED 10/19/19 [History] metoprolol tartrate 50 mg PO BID 10/19/19 [History] pantoprazole 40 mg PO DAILY 10/19/19 [History] venlafaxine 75 mg PO DAILY 10/19/19 [History] - Review of Systems Constitutional: Fever, Chills, Weakness Eyes: No Symptoms Reported ENT: No Symptoms Reported Respiratory: Shortness of Breath Cardiovascular: Edema Gastrointestinal: No Symptoms Reported Genitourinary: No Symptoms Reported Musculoskeletal: No Symptoms Reported Skin: No Symptoms Reported Neurological: No Symptoms Reported - Physical Exam Vital Signs: Temperature 98.3 F Pulse Rate [Left] 59 Pulse Rate 52 Respiratory Rate 17 Blood Pressure [Left Calf] 132/93 Blood Pressure [Left Arm] 165/84 Blood Pressure 209/103 O2 Sat by Pulse Oximetry 100 Oriented: Normal Eyes: Blurred Vision (CHRONIC VISION IMPAIRMENT) Ear: Normal Nose: Normal Throat: Dry Respiratory: RLL Diminished, LLL Diminished Cardiovascular: Edema : Normal Auscultation: Bowel Sounds: Normal Palpation: Normal Tenderness: Normal Skin: Decreased Turgur Musculoskeletal: Back:Lumbar, Deformity Psychiatric: Anxiety Affect: Anxious Speech Pattern: Clear, Appropriate - Assessment/Plan (1) Hypertensive emergency Status: Acute Plan: ADMIT, SERIAL CE AND EKG. CXR ON ADMISSION, CONTINUOUS TELEMETRY. ROCEPHIN IV FOR UTI. GENTLE IV HYDRATION, SUPPLEMENTAL O2. STRICT I&OS, PAIN AND NAUSEA CONTROL. BP MANAGEMENT (2) SOB (shortness of breath) Status: Acute (3) Diabetes Status: Acute (4) UTI (urinary tract infection) Status: Acute (5) CHF (congestive heart failure) Qualifiers: Heart failure type: combined systolic and diastolic Heart failure chronicity: acute Qualified Code(s): I50.41 - Acute combined systolic (congestive) and diastolic (congestive) heart failure Status: Chronic (6) Chronic kidney disease (CKD), stage V Status: Chronic (7) History of coronary artery disease Status: Chronic (8) GERD (gastroesophageal reflux disease) Qualifiers: Esophagitis presence: without esophagitis Qualified Code(s): K21.9 - Gastro-esophageal reflux disease without esophagitis Status: Chronic - Allergies Allergies/Adverse Reactions: Allergies Allergy/AdvReac Type Severity Reaction Status Date / Time No Known Drug Allergies Allergy Verified 05/28/19 14:38
[2019-10-19] MEDS ORDERED: SNACK - Diabetic Appropriate PO SCH (20:00)
[2019-10-19] MEDS: LOPRESSOR TAB 50 MG PO SCH (20:43)
[2019-10-19] MEDS ORDERED: COLACE CAP 100 MG PO SCH (21:00)
[2019-10-19 21:42] LABS: CKMB % 1.1 % (<4); CREATINE KINASE 135 Units/L (26-192); CREATINE KINASE MB 1.5 ng/mL (0-4.0); TROPONIN I < 0.02 ng/mL (0-1.5)
[2019-10-20] MEDS: DEMEROL INJ IVP PRN ×2 (02:26→08:39)
[2019-10-20 05:32] LABS: BASOPHILS # (AUTO) 0.1 X10^3/uL (0.0-0.1); BASOPHILS % (AUTO) 2.5 % (0.2-1.0); EOSINOPHILS # (AUTO) 0.3 x10^3/uL (0.0-0.2); EOSINOPHILS % (AUTO) 5.6 % (0.9-2.9); HEMATOCRIT 27.1 % (36.0-47.0); HEMOGLOBIN 9.1 g/dL (12.0-16.0); LYMPHOCYTES % (AUTO) 19.9 % (21.0-51.0); MEAN CORPUSCULAR HEMOGLOBIN 30.2 pg (27.0-34.0); MEAN CORPUSCULAR HGB CONC 33.5 g/dL (33.0-35.0); MEAN CORPUSCULAR VOLUME 89.9 fL (80.0-100.0); MEAN PLATELET VOLUME 9.4 fL (7.4-11.0); MONOCYTES # (AUTO) 0.3 x10^3/uL (0.3-0.8); MONOCYTES % (AUTO) 6.3 % (0.0-13.0); NEUTROPHILS # (AUTO) 3.3 x10^3/uL (2.2-4.8); NEUTROPHILS % (AUTO) 65.7 % (42.0-75.0); PLATELET COUNT 217 X10^3/uL (150.0-450.0); RED BLOOD COUNT 3.01 X10^6/uL (3.5-5.4); RED CELL DISTRIBUTION WIDTH 15.2 % (11.6-16.5)
[2019-10-20 05:39] LABS: ALBUMIN 2.4 g/dL (3.4-5.0); CALCIUM 7.5 mg/dL (8.5-10.1); CARBON DIOXIDE 27.4 mmol/L (21-32); CHOL/HDL RATIO 12.1 (0.0-5.0); COR CA(FOR HYPOALB) 8.8 mg/dL (8.5-10.1); CREATININE 2.89 mg/dL (0.55-1.02); MAGNESIUM 1.4 mg/dL (1.7-2.9); TOTAL PROTEIN 6.3 g/dL (6.4-8.2)
[2019-10-20] MEDS: HumuLIN R SC PRN (05:56)
[2019-10-20] MEDS: LOPRESSOR TAB 50 MG PO SCH (08:38)
[2019-10-20] MEDS: ROCEPHIN VIAL 1 GRAM 1 G in NS 100 ML IV + SPIKE MINIBAG* 100 ML IV SCH (08:39)
[2019-10-20] MEDS: ZOFRAN INJ 4 MG VIAL IVP PRN (08:40)
[2019-10-20] MEDS: NS 1000 ML 1,000 ML IV SCH (08:40)
[2019-10-20] MEDS ORDERED: PLAVIX PO SCH (09:00)
[2019-10-20] MEDS ORDERED: EFFEXOR XR 75 MG CAP 24-HR PO SCH (09:00)
[2019-10-20 09:18] VITALS: BP 154/74
== END 2019-10-20 12:30 | disposition home or self-care (01) ==
LOC: OBS 23:05 → ER 23:05 → OBS 10-19 07:39 → MED/SURG 10-19 18:29
PROVIDERS: ADMIT Internal Medicine; ATTEND Internal Medicine
DX: R94.31 Abnormal electrocardiogram [ECG] [EKG]; I16.1 Hypertensive emergency; K21.9 Gastro-esophageal reflux disease without esophagitis; I25.10 Atherosclerotic heart disease of native coronary artery without angina pectoris; R26.89 Other abnormalities of gait and mobility; B96.29 Other Escherichia coli [E. coli] as the cause of diseases classified elsewhere; I50.9 Heart failure, unspecified; Z89.511 Acquired absence of right leg below knee; R51 Headache; N18.5 Chronic kidney disease, stage 5; R60.0 Localized edema; N39.0 Urinary tract infection, site not specified; E11.65 Type 2 diabetes mellitus with hyperglycemia; R06.02 Shortness of breath; R07.89 Other chest pain

== ENCOUNTER 2020-02-29 18:01 | Observation (INO) ==
[2020-02-29 18:20] VITALS: BMI 40.2
--- NOTE | 2020-02-29 18:48 | DR.SOBA ---
HPI Time Seen Time Seen by Provider: 02/29/20 18:48 Primary Care Physician Primary Care Physician: DR HERNANDEZ HPI Comment HPI Comment: PATIENT IS 39YR OLD FEMALE IN ER WITH EDEMA AND INCREASING SOB FOR ONE WEEK. 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 EXTREMITIES SO SWOLLEN THAT PATIENT IS UNABLE TO WEAR HER PROSTHESIS. DENIES FEVER. NO DIALYSIS SINCE LAST SATURDAY. HER GLUCOSE IS ALSO RUNNING HIGH FOR PAST FEW DAYS BUT MUCH HIGHER TODAY. PATIENT IS WEAK AND SLEEPY. Complaints Chief Complaint Doctors Comments: INCREASING SOB AND LOWER EXTREMITY EDEMA TIMES ONE WEEK. Chief Complaint:: PT C/O SHORTNESS OF BREATH X 1 WEEK. PT STATES SHE HAS MISSED HER LAST THREE DIALYSIS APPOINTMENT BECAUSE HER LEG IS SO SWOLLEN SHE COULDN'T GET HER PROSTHESIS ON TO GET OUT OF THE HOUSE TO GET TO DIALYSIS Self Treatment fo Chief Complaint: BLOOD SUGAR 544 WITH EMS COVID-19 Coronavirus risk:travel/contact w/high risk person: No Has patient experienced Coronavirus symptoms: No Reviewed Nurses Notes Reviewed: Yes Source History Provided: Patient Mode of Arrival Mode of Arrival: EMS Timing Onset of Chief Complaint: 02/29/20 Duration Duration: Days Context Onset:: At Rest PE Risk Factors:: Immobilization History of:: CHF PMH PMH Past Medical History: Yes Past Medical History: CHF, Diabetes, Dialysis, Hypertension and Renal Disease Past Surgical History: Yes Surgical History: CABG/Valve Surgery Family History History of Family Medical Conditions: No Family Medical History: Diabetes Mellitus, Cancer and [place] Social History Does patient currently use any type of tobacco product: No Have you used tobacco products in the last 12 months: No Type of Tobacco Use: None Does any household member use tobacco: No Alcohol Use: None Do you use any recreational Drugs:: No Lives With: Family Lives Where: Home Travel Risk Coronavirus risk:travel/contact w/high risk person: No Has patient experienced Coronavirus symptoms: No Infectious screening In the last 2 months have you had wt loss of >10#?: NO Have you had fever, night sweats or hemotysis?: No Have you traveled outside the country in the last 6 months?: No Isolation: Standard ROS Review of Systems Constitutional: See HPI, Weakness and Fatigue; negative Fever Eyes: See HPI and Other (RIGHT EYE BLINDNESS.) ENTM: No Symptoms Reported and See HPI; negative Nose Discharge and Nose Congestion Respiratoy: See HPI, Moist Cough and Short of Breath; negative Wheezing Cardiovascular: See HPI, Chest Pain and Edema Gastrointestinal/Abdominal: No Symptoms Reported and See HPI Genitourinary: No Symptoms Reported and See HPI Neurological: No Symptoms Reported, See HPI, Headache and Weakness Musculoskeletal: No Symptoms Reported, See HPI, Back Pain, Muscle Pain and Other (RBKA, LEFT TOES AMPUTATED.) Integumentary: No Symptoms Reported and See HPI; negative Change in Color, Rash and Juandice Hematologic/Lymphatic: No Symptoms Reported, See HPI and Easy Bruising; negative Swollen Glands Endocrine: No Symptoms Reported, See HPI and Increased Thirst; negative Increased Urine Psychiatric: No Symptoms Reported All Other Systems: Reviewed and Negative PE Vital Signs Vitals: Temperature 98.1 F Pulse Rate 64 Respiratory Rate 27 Blood Pressure [Left Calf] 132/93 Blood Pressure [Left Arm] 154/74 Blood Pressure 143/70 O2 Sat by Pulse Oximetry 100 General Limitations: Altered Mental Status General Appearance: In No Apparent Distress Head Head Exam: Normal Inspection and Atraumatic Eyes Eye exam: EOMI (blindness right eye.) ENT ENT Exam: Normal Exam, Normal Oropharynx and Normal External Ear Exam Neck Neck Exam: Normal Inspection and Trachea Midline; negative Tenderness and Lymphadenopathy Chest Chest Inspection: Normal Inspection and Symmetric Chest Wall Rise; negative Tenderness Respiratory Respiratory Exam: Respiratory Distress; negative Accessory Muscle Use and Chest Wall Tenderness Respiratory Exam: Bilateral: Rhonchi and Lower: Rhonchi Cardiovascular Cardiovascular Exam: Regular Rate, Normal Rhythm and Normal Heart Sounds; negative Systolic Murmur and Diastolic Murmur Abdominal Exam Abdominal Exam: Normal Bowel Sounds and Soft; negative Tenderness Extremities Extremities Exam: Other (RIGHT BKA, TOES AMPUTATED LLE.) Back Back Exam: (R) CVA Tenderness and Paraspinal Tenderness (LOWER BACK.); negative (L) CVA Tenderness Neurologic Neurological Exam: Alert, Oriented X3 and Other (SLEEPY.); negative Motor Sensory Deficit Psychiatric Psychiatric Exam: Normal Affect and Anxious Skin Skin Exam: Dry MDM Additional Information Obtained Additional Information Obtained From: Old Records Differential Diagnosis Differential Diagnosis: Bronchitis, CHF, Hyponatremia, Mycardial Infarction, Pneumonia and Pneumothorax Differential Diagnosis Comment:: DKA, UTI. COURSE Treatment Treatment: SEE ORDERS. Consultation Consultation Comments: DISCUSSED PATIENT WITH DR. SALEH. SHE WILL ADMIT PATIENT. ALSO DISCUSSED PATIENT WITH MORTGAGE ADVISOR. HE WILL ARRANGE DIALYSIS FOR PATIENT IN [place] IN AM. Education/Counseling Education/Counseling: Patient Educated On: Diagnosis ROR Labs Reviewed Laboratory Results Reviewed?: Yes Result Diagrams: 03/01/20 04:39 03/01/20 04:39 Laboratory: WBC 4.6 X10^3/uL (3.6-10.0) 03/01/20 04:39 RBC 2.51 X10^6/uL (3.5-5.4) L 03/01/20 04:39 Hgb 8.0 g/dL (12.0-16.0) L 03/01/20 04:39 Hct 25.1 % (36.0-47.0) L 03/01/20 04:39 MCV 100.3 fL (80.0-100.0) H 03/01/20 04:39 MCH 31.8 pg (27.0-34.0) 03/01/20 04:39 MCHC 31.7 g/dL (33.0-35.0) L 03/01/20 04:39 RDW 19.4 % (11.6-16.5) H 03/01/20 04:39 Plt Count 200 X10^3/uL (150.0-450.0) 03/01/20 04:39 Plt Count Comment Adequate (ADEQUATE) 02/29/20 18:30 MPV 9.6 fL (7.4-11.0) 03/01/20 04:39 Neut % (Auto) 66.2 % (42.0-75.0) 03/01/20 04:39 Lymph % (Auto) 22.0 % (21.0-51.0) 03/01/20 04:39 [place] % (Auto) 4.8 % (0.0-13.0) 03/01/20 04:39 Eos % (Auto) 4.5 % (0.9-2.9) H 03/01/20 04:39 Baso % (Auto) 2.5 % (0.2-1.0) H 03/01/20 04:39 Neut # (Auto) 3.0 x10^3/uL (2.2-4.8) 03/01/20 04:39 Lymph # (Auto) 1.0 X10^3/uL (1.3-2.9) L 03/01/20 04:39 Harvey # (Auto) 0.2 x10^3/uL (0.3-0.8) L 03/01/20 04:39 Eos # (Auto) 0.2 x10^3/uL (0.0-0.2) 03/01/20 04:39 Baso # (Auto) 0.1 X10^3/uL (0.0-0.1) 03/01/20 04:39 Absolute Nucleated RBC 0.2 /100WBC 03/01/20 04:39 Plt Morphology Comment Normal (NORMAL) 02/29/20 18:30 RBC Morphology Abnormal (NORMAL) A 02/29/20 18:30 Anisocytosis 1+ A 02/29/20 18:30 PT 15.5 SECONDS (11.8-14.3) 03/01/20 04:39 INR Target Range - 03/01/20 04:39 INR 1.26 (0.8-1.3) 03/01/20 04:39 APTT 30.1 SECONDS (22.9-36.5) 03/01/20 04:39 PTT Comment - 03/01/20 04:39 Sodium 134 mmol/L (136-145) L 03/01/20 04:39 Corrected Sodium 142 mmol/L (136-145) 03/01/20 04:39 Potassium 4.4 mmol/L (3.5-5.1) 03/01/20 04:39 Chloride 100 mmol/L (98-107) 03/01/20 04:39 Carbon Dioxide 22.8 mmol/L (21-32) 03/01/20 04:39 BUN 83 mg/dL (7-18) H 03/01/20 04:39 Creatinine 5.49 mg/dL (0.55-1.02) H 03/01/20 04:39 Est GFR (MDRD) Af Amer 11 (>60) L 03/01/20 04:39 Est GFR (MDRD) Non-Af 9 (>60) L 03/01/20 04:39 Glucose 443 mg/dL (65-99) H 03/01/20 04:39 POC Glucose (mg/dL) 347 mg/dL (65-99) H 03/01/20 06:16 Calcium 7.2 mg/dL (8.5-10.1) L 03/01/20 04:39 Corrected Calcium 8.3 mg/dL (8.5-10.1) L 03/01/20 04:39 Magnesium 1.9 mg/dL (1.7-2.9) 03/01/20 04:39 Total Bilirubin 0.70 mg/dL (0.2-1.0) 03/01/20 04:39 AST 12 Units/L (15-37) L 03/01/20 04:39 ALT 96 Units/L (12-78) H 03/01/20 04:39 Alkaline Phosphatase 123 Units/L (46-116) H 03/01/20 04:39 Creatine Kinase 110 Units/L (26-192) 03/01/20 04:39 CK-MB (CK-2) 1.6 ng/mL (0-4.0) 03/01/20 04:39 CK/CKMB % Calc 1.5 % (<4) 03/01/20 04:39 Troponin I < 0.02 ng/mL (0-1.5) 03/01/20 04:39 Total Protein 7.3 g/dL (6.4-8.2) 03/01/20 04:39 Albumin 2.6 g/dL (3.4-5.0) L 03/01/20 04:39 Globulin 4.7 g/dL (2.5-4.5) H 03/01/20 04:39 Albumin/Globulin Ratio 0.6 Ratio (1.1-2.1) L 03/01/20 04:39 Specimen Type Clean catch urine 02/29/20 23:39 Urine Color Straw (YELLOW) 02/29/20 23:39 Urine Appearance Clear (CLEAR) 02/29/20 23:39 Urine pH 5.0 (5.0 - 8.0) 02/29/20 23:39 Ur Specific [place] 1.015 (1.000-1.030) 02/29/20 23:39 Urine Protein 3+ (NEGATIVE) 02/29/20 23:39 Urine Glucose (UA) 4+ (NEGATIVE) 02/29/20 23:39 Urine Ketones Negative (NEGATIVE) 02/29/20 23:39 Urine Occult Blood 4+ (NEGATIVE) 02/29/20 23:39 Urine Nitrite Negative (NEGATIVE) 02/29/20 23:39 Urine Bilirubin Negative (NEGATIVE) 02/29/20 23:39 Urine Urobilinogen Normal (NORMAL) 02/29/20 23:39 Ur Leukocyte Esterase Negative (NEGATIVE) 02/29/20 23:39 Urine RBC 0-2 /HPF (0-3) 02/29/20 23:39 Urine WBC None seen /HPF (0-5) 02/29/20 23:39 Ur Squamous Epith Cells Few /HPF (NEGATIVE) 02/29/20 23:39 Urine Bacteria Trace /HPF (NEGATIVE) 02/29/20 23:39 Ur Culture Indicated? No/not indicated 02/29/20 23:39 Acetone, Semi-Quant Negative (NEGATIVE) 02/29/20 18:30 XRAY XRAY Interpreted by: Radiologist (REPORT NOTED AND DISCUSSED WITH PATIENT.) and Self EKG Rate: 60 Newcomb: Normal Rhythm: NSR Block: None Hypertrophy: None ST: Nonsp Opioid Opioid Risk Tool Age (Owen box if 16-45): Yes History of Preadolescent Sexual Abuse: No Total: 1 Total Score Risk Category: Low Risk Copyright: Keenan HERNÁNDEZ predicting aberrant behaviors Diagnosis Discharge Problem: Acute hyperglycemia, ESRD needing dialysis, Shortness of breath Anemia Qualifiers: Anemia type: unspecified type Qualified Code(s): D64.9 - Anemia, unspecified Instructions Forms: Precautions for COVID19 Patient Portal Social Distancing
[2020-02-29 19:04] LABS: SERUM ACETONE NEGATIVE (NEGATIVE)
[2020-02-29 19:07] LABS: BASOPHILS # (AUTO) 0.1 X10^3/uL (0.0-0.1); BASOPHILS % (AUTO) 1.7 % (0.2-1.0); EOSINOPHILS # (AUTO) 0.2 x10^3/uL (0.0-0.2); EOSINOPHILS % (AUTO) 3.2 % (0.9-2.9); HEMATOCRIT 24.5 % (36.0-47.0); HEMOGLOBIN 7.7 g/dL (12.0-16.0); LYMPHOCYTES # (AUTO) 0.7 X10^3/uL (1.3-2.9); LYMPHOCYTES % (AUTO) 13.9 % (21.0-51.0); MEAN CORPUSCULAR HGB CONC 31.6 g/dL (33.0-35.0); MEAN CORPUSCULAR VOLUME 101.4 fL (80.0-100.0); MEAN PLATELET VOLUME 10.5 fL (7.4-11.0); MONOCYTES # (AUTO) 0.2 x10^3/uL (0.3-0.8); MONOCYTES % (AUTO) 4.2 % (0.0-13.0); NEUTROPHILS # (AUTO) 3.8 x10^3/uL (2.2-4.8); PLATELET COUNT 188 X10^3/uL (150.0-450.0); RED BLOOD COUNT 2.42 X10^6/uL (3.5-5.4); RED CELL DISTRIBUTION WIDTH 20.1 % (11.6-16.5); WHITE BLOOD COUNT 4.9 X10^3/uL (3.6-10.0)
--- NOTE | 2020-02-29 19:10 | RAD ---
HISTORYSOBSTUDYCHEST, 1 [id number]/01/2020FINDINGSTrachea is midline. Heart size is mildly enlarged with previous CABG. Increased prominence of the pulmonary vasculature consistent with pulmonary venous hypertension.[Right-sided central venous catheter has its tip terminating at the level of the atrial caval junction.No focal airspace opacity, pleural effusion or pneumothorax.IMPRESSIONPulmonary venous hypertension and cardiomegaly without acute airspace disease or CHF.Interval placement of a right-sided central venous catheter with the tip terminating at the level of the atrial caval junction.Electronically signed by: ISIDRO COVARRUBIAS (Feb 29, 2020 19:10:09)
[2020-02-29 19:13] LABS: ALANINE AMINOTRANSFERASE 111 Units/L (12-78); ALBUMIN 2.6 g/dL (3.4-5.0); ALKALINE PHOSPHATASE 126 Units/L (46-116); ASPARTATE AMINO TRANSFERASE 18 Units/L (15-37); BLOOD UREA NITROGEN 84 mg/dL (7-18); CALCIUM 7.2 mg/dL (8.5-10.1); CARBON DIOXIDE 23.4 mmol/L (21-32); CHLORIDE 97 mmol/L (98-107); COR CA(FOR HYPOALB) 8.3 mg/dL (8.5-10.1); CREATININE 5.83 mg/dL (0.55-1.02); SODIUM 130 mmol/L (136-145); TOTAL PROTEIN 7.1 g/dL (6.4-8.2); eGFR NON BLACK RACES 9 (>60)
[2020-02-29 19:19] LABS: COR NA(FOR HYPERGLY) 142 mmol/L (136-145)
[2020-02-29 19:36] LABS: ANISOCYTOSIS 1+; PLATELET MORPHOLOGY COMMENT NORMAL (NORMAL)
[2020-02-29] MEDS ORDERED: NS 1000 ML 1,000 ML IV ONE (20:31)
[2020-02-29] MEDS ORDERED: HumuLIN R IV ONE (20:33)
[2020-02-29] MEDS ORDERED: NS 1000 ML 1,000 ML ONE (20:45)
[2020-02-29] MEDS ORDERED: HumuLIN R ONE (20:46)
[2020-02-29] MEDS: SNACK - Diabetic Appropriate PO SCH (20:53)
[2020-02-29 23:46] LABS: BILIRUBIN,URINE NEGATIVE (NEGATIVE); BLOOD/HEMOGLOBIN,URINE 4+ (NEGATIVE); GLUCOSE, URINE 4+ (NEGATIVE); KETONES,URINE NEGATIVE (NEGATIVE); LEUKOCYTE ESTERASE ,URINE NEGATIVE (NEGATIVE); NITRITES,URINE NEGATIVE (NEGATIVE); PROTEIN,URINE 3+ (NEGATIVE); UROBILINOGEN,URINE NORMAL (NORMAL)
[2020-02-29 23:47] LABS: APPEARANCE,URINE CLEAR (CLEAR); COLOR,URINE STRAW (YELLOW)
[2020-02-29 23:51] LABS: BACTERIA,URINE TRACE /HPF (NEGATIVE); RBC,URINE 0-2 /HPF (0-3); SQUAMOUS EPITHELIAL CELL,UR FEW /HPF (NEGATIVE)
[2020-03-01] MEDS ORDERED: NS 1000 ML 1,000 ML ONE (01:51)
[2020-03-01] MEDS ORDERED: HumuLIN R ONE ×4 (01:53→08:08)
[2020-03-01] MEDS: HumuLIN R SC PRN ×6 (01:58→20:16)
[2020-03-01] MEDS: NS 1000 ML 1,000 ML IV SCH ×2 (01:59→14:22)
[2020-03-01 04:42] LABS: MEAN PLATELET VOLUME 9.6 fL (7.4-11.0); WHITE BLOOD COUNT 4.6 X10^3/uL (3.6-10.0)
[2020-03-01 04:46] LABS: BASOPHILS # (AUTO) 0.1 X10^3/uL (0.0-0.1); BASOPHILS % (AUTO) 2.5 % (0.2-1.0); EOSINOPHILS # (AUTO) 0.2 x10^3/uL (0.0-0.2); EOSINOPHILS % (AUTO) 4.5 % (0.9-2.9); HEMATOCRIT 25.1 % (36.0-47.0); MEAN CORPUSCULAR HEMOGLOBIN 31.8 pg (27.0-34.0); MEAN CORPUSCULAR HGB CONC 31.7 g/dL (33.0-35.0); MEAN CORPUSCULAR VOLUME 100.3 fL (80.0-100.0); MONOCYTES # (AUTO) 0.2 x10^3/uL (0.3-0.8); MONOCYTES % (AUTO) 4.8 % (0.0-13.0); NEUTROPHILS % (AUTO) 66.2 % (42.0-75.0); PLATELET COUNT 200 X10^3/uL (150.0-450.0); RED BLOOD COUNT 2.51 X10^6/uL (3.5-5.4); RED CELL DISTRIBUTION WIDTH 19.4 % (11.6-16.5)
[2020-03-01 05:05] LABS: ALANINE AMINOTRANSFERASE 96 Units/L (12-78); ALBUMIN 2.6 g/dL (3.4-5.0); ALKALINE PHOSPHATASE 123 Units/L (46-116); ASPARTATE AMINO TRANSFERASE 12 Units/L (15-37); BLOOD UREA NITROGEN 83 mg/dL (7-18); CALCIUM 7.2 mg/dL (8.5-10.1); CARBON DIOXIDE 22.8 mmol/L (21-32); CHLORIDE 100 mmol/L (98-107); CKMB % 1.5 % (<4); COR CA(FOR HYPOALB) 8.3 mg/dL (8.5-10.1); COR NA(FOR HYPERGLY) 142 mmol/L (136-145); CREATINE KINASE 110 Units/L (26-192); CREATINE KINASE MB 1.6 ng/mL (0-4.0); CREATININE 5.49 mg/dL (0.55-1.02); MAGNESIUM 1.9 mg/dL (1.7-2.9); SODIUM 134 mmol/L (136-145); TOTAL PROTEIN 7.3 g/dL (6.4-8.2); TROPONIN I < 0.02 ng/mL (0-1.5); eGFR NON BLACK RACES 9 (>60)
[2020-03-01] MEDS ORDERED: CATAPRES TAB 0.1 MG PO PRN (08:57)
[2020-03-01] MEDS: LIPITOR TAB 20 MG PO SCH (09:55)
[2020-03-01] MEDS: LOPRESSOR TAB 50 MG PO SCH ×2 (09:55→22:24)
[2020-03-01] MEDS: NORCO 10/325 TAB PO SCH ×2 (09:55→22:24)
[2020-03-01] MEDS: PLAVIX PO SCH (09:55)
[2020-03-01] MEDS: NEURONTIN CAP 300 MG PO SCH ×3 (09:55→22:25)
[2020-03-01] MEDS: EFFEXOR XR 75 MG CAP 24-HR PO SCH (09:55)
[2020-03-01 11:14] LABS: BILIRUBIN,URINE NEGATIVE (NEGATIVE); BLOOD/HEMOGLOBIN,URINE 5+ (NEGATIVE); GLUCOSE, URINE 4+ (NEGATIVE); KETONES,URINE NEGATIVE (NEGATIVE); LEUKOCYTE ESTERASE ,URINE NEGATIVE (NEGATIVE); NITRITES,URINE NEGATIVE (NEGATIVE); PROTEIN,URINE 3+ (NEGATIVE); UROBILINOGEN,URINE NORMAL (NORMAL)
[2020-03-01 11:20] LABS: APPEARANCE,URINE SLIGHTLY HAZY (CLEAR); BACTERIA,URINE TRACE /HPF (NEGATIVE); COLOR,URINE PALE YELLOW (YELLOW); SQUAMOUS EPITHELIAL CELL,UR FEW /HPF (NEGATIVE)
[2020-03-01 11:21] LABS: AMORPHOUS SEDIMENT,UR 2+ /HPF (NEGATIVE)
[2020-03-01 11:27] LABS: CKMB % 1.8 % (<4); CREATINE KINASE 111 Units/L (26-192); TROPONIN I < 0.02 ng/mL (0-1.5)
[2020-03-01] MEDS: APRESOLINE TAB 25 MG PO SCH ×2 (14:16→22:24)
[2020-03-01] MEDS: MORPHINE SULFATE INJ 2 MG INJ IVP PRN (15:05)
[2020-03-01] MEDS ORDERED: ZOFRAN INJ 4 MG VIAL IVP PRN (15:25)
[2020-03-01] MEDS ORDERED: ZOFRAN INJ 4 MG VIAL ONE (15:30)
[2020-03-01] MEDS ORDERED: PROTONIX INJ 40 MG VIAL ONE (15:30)
[2020-03-01] MEDS ORDERED: NYSTATIN POWDER ONE (15:43)
[2020-03-01] MEDS: PROTONIX INJ 40 MG VIAL IVP SCH (16:00)
--- NOTE | 2020-03-01 18:04 | DR.H&P ---
H&P - History & Physical for Day of: H&P Date: 03/01/20 - Chief Complaint Chief Complaint: elevated blood sugar, diffuse swelling - History of Present Illness History of Present Illness: PT IS 39WF ER ADMISSION WITH CO PATIENT IS 39YR OLD FEMALE IN ER WITH EDEMA AND INCREASING SOB FOR ONE WEEK. 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 EXTREMITIES SO SWOLLEN THAT PATIENT IS UNABLE TO WEAR HER PROSTHESIS. DENIES FEVER. NO DIALYSIS SINCE LAST SATURDAY. HER GLUCOSE IS ALSO RUNNING HIGH FOR PAST FEW DAYS BUT MUCH HIGHER TODAY. PATIENT IS WEAK AND SLEEPY. PT HAS PMH OF DM, CAD, HTN, ESRD. PT ADMITTED FOR TREATMENT OF ACUTE ILLNESS. - Past Medical History Past Medical History: CHF, Coronary Artery Disease, Diabetes, Dialysis, Hypertension, Renal Disease - Past Surgical History Surgical History: , CABG/Valve Surgery, Cholecystectomy, Ortho Surgery, Other - Family History Family Medical History: Diabetes Mellitus, Cancer, [place] - Social History Does patient currently use any type of tobacco product: No Have you used tobacco products in the last 12 months: No Type of Tobacco Use: None Does any household member use tobacco: No Alcohol Use: None Drug Use: None - Medications Home Medications: No Known Drug Allergies Allergy (Verified 05/28/19 14:38) CONTINUE taking the following medications metolazone 5 mg PO DAILY 03/01/20 [History] pregabalin 50 mg PO DAILY 03/01/20 [History] sevelamer HCl 800 mg PO TID 03/01/20 [History] - Review of Systems Constitutional: Weakness Eyes: No Symptoms Reported ENT: Nose Congestion Respiratory: Shortness of Breath Cardiovascular: denies: Chest Pain Gastrointestinal: Nausea, Other (ABDOMINAL DISTENTION) Genitourinary: No Symptoms Reported Musculoskeletal: Back Pain, Leg Pain Skin: No Symptoms Reported Neurological: Weakness - Physical Exam Vital Signs: Temperature 97.7 F Pulse Rate [Right Brachial] 51 Pulse Rate 64 Respiratory Rate 20 Blood Pressure [Right Arm] 175/81 Blood Pressure [Left Calf] 132/93 Blood Pressure [Left Arm] 154/74 Blood Pressure 143/70 O2 Sat by Pulse Oximetry 98 Oriented: Normal Eyes: Blurred Vision (CHRONIC) Ear: Normal Nose: Normal Throat: Normal Respiratory: RLL Diminished Cardiovascular: Normal, Edema : Normal Auscultation: Bowel Sounds: Normal Palpation: Other (DIFFUSE DISTENTION) Skin: Decreased Turgur Musculoskeletal: Deformity, Motor Deficit Psychiatric: Anxiety Speech Pattern: Clear, Appropriate - Assessment/Plan (1) ESRD needing dialysis Status: Acute Plan: ADMIT, STRICT I&OS, [place]. VERIFY AND RESUME HOME MEDICATION. CONTACT DIALYSIS CENTER FOR SCHEDULING DIALYSIS THERAPY. CONTINUOUS CARDIAC MONITORING. BP CONTROL, PRN PAIN AND NAUSEA CONTROL. BLOOD SUGAR MONITORING (2) Acute hyperglycemia Status: Acute (3) CAD (coronary artery disease) Qualifiers: Coronary Disease-Associated Artery/Lesion type: bypass graft Three Affiliated vs. transplanted heart: [place] heart Associated angina: without angina Qualified Code(s): I25.799 - Atherosclerosis of other coronary artery bypass graft(s) with unspecified angina pectoris Status: Chronic (4) CHF (congestive heart failure) Qualifiers: Heart failure type: combined systolic and diastolic Heart failure chronicity: acute Qualified Code(s): I50.41 - Acute combined systolic (congestive) and diastolic (congestive) heart failure Status: Chronic (5) GERD (gastroesophageal reflux disease) Qualifiers: Esophagitis presence: without esophagitis Qualified Code(s): K21.9 - Gastro-esophageal reflux disease without esophagitis Status: Chronic (6) Gastroparesis Status: Chronic (7) Generalized weakness Status: Chronic (8) HTN (hypertension) Qualifiers: Hypertension type: essential hypertension Qualified Code(s): I10 - Essential (primary) hypertension Status: Chronic - Allergies Allergies/Adverse Reactions: Allergies Allergy/AdvReac Type Severity Reaction Status Date / Time No Known Drug Allergies Allergy Verified 05/28/19 14:38
[2020-03-01] MEDS: LASIX PO SCH (20:16)
[2020-03-01] MEDS: SNACK - Diabetic Appropriate PO SCH (22:23)
[2020-03-01] MEDS: NYSTATIN POWDER TOP SCH (23:43)
[2020-03-02] MEDS: MORPHINE SULFATE INJ 2 MG INJ IVP PRN (00:22)
[2020-03-02 06:12] LABS: BASOPHILS # (AUTO) 0.1 X10^3/uL (0.0-0.1); BASOPHILS % (AUTO) 2.2 % (0.2-1.0); EOSINOPHILS # (AUTO) 0.3 x10^3/uL (0.0-0.2); EOSINOPHILS % (AUTO) 5.7 % (0.9-2.9); HEMATOCRIT 23.3 % (36.0-47.0); HEMOGLOBIN 7.4 g/dL (12.0-16.0); LYMPHOCYTES % (AUTO) 23.5 % (21.0-51.0); MEAN CORPUSCULAR HEMOGLOBIN 31.7 pg (27.0-34.0); MEAN CORPUSCULAR HGB CONC 31.9 g/dL (33.0-35.0); MEAN CORPUSCULAR VOLUME 99.4 fL (80.0-100.0); MEAN PLATELET VOLUME 9.2 fL (7.4-11.0); MONOCYTES # (AUTO) 0.3 x10^3/uL (0.3-0.8); MONOCYTES % (AUTO) 6.1 % (0.0-13.0); NEUTROPHILS # (AUTO) 2.8 x10^3/uL (2.2-4.8); NEUTROPHILS % (AUTO) 62.5 % (42.0-75.0); PLATELET COUNT 225 X10^3/uL (150.0-450.0); RED BLOOD COUNT 2.34 X10^6/uL (3.5-5.4); RED CELL DISTRIBUTION WIDTH 18.9 % (11.6-16.5); WHITE BLOOD COUNT 4.4 X10^3/uL (3.6-10.0)
[2020-03-02 06:14] LABS: ALBUMIN 2.4 g/dL (3.4-5.0); CALCIUM 7.4 mg/dL (8.5-10.1); CARBON DIOXIDE 24.2 mmol/L (21-32); COR CA(FOR HYPOALB) 8.7 mg/dL (8.5-10.1); CREATININE 5.27 mg/dL (0.55-1.02); TOTAL PROTEIN 6.5 g/dL (6.4-8.2)
[2020-03-02] MEDS: APRESOLINE TAB 25 MG PO SCH (06:29)
[2020-03-02] MEDS: NEURONTIN CAP 300 MG PO SCH (06:30)
[2020-03-02 06:50] LABS: PLATELET MORPHOLOGY COMMENT NORMAL (NORMAL)
[2020-03-02] MEDS ORDERED: ZOFRAN TAB 4 MG PO PRN (10:04)
[2020-03-02] MEDS: NYSTATIN POWDER TOP SCH (10:05)
[2020-03-02] MEDS: NORCO 10/325 TAB PO SCH (10:05)
[2020-03-02] MEDS: EFFEXOR XR 75 MG CAP 24-HR PO SCH (10:05)
[2020-03-02] MEDS: LASIX PO SCH (10:06)
[2020-03-02] MEDS: LIPITOR TAB 20 MG PO SCH (10:06)
[2020-03-02] MEDS: LOPRESSOR TAB 50 MG PO SCH (10:06)
[2020-03-02] MEDS: PLAVIX PO SCH (10:07)
[2020-03-02] MEDS ORDERED: ZOFRAN TAB 4 MG ONE (10:08)
[2020-03-02] MEDS: PROTONIX INJ 40 MG VIAL IVP SCH (10:17)
[2020-03-02 10:18] VITALS: BP 103/50
== END 2020-03-02 11:20 | disposition home health service (06) ==
LOC: MED/SURG 18:02 → ER 18:02 → MED/SURG 03-01 08:15
PROVIDERS: ADMIT Internal Medicine; ATTEND Internal Medicine

== ENCOUNTER 2020-09-06 15:45 | Observation (INO) ==
[2020-09-06 16:11] VITALS: BMI 38.4
[2020-09-06] MEDS ORDERED: NS 1000 ML 1,000 ML IV ONE ×2 (16:12→18:36)
[2020-09-06] MEDS ORDERED: NS 1000 ML 1,000 ML ONE ×2 (16:23→18:31)
[2020-09-06 16:32] LABS: BASOPHILS # (AUTO) 0.1 X10^3/uL (0.0-0.1); BASOPHILS % (AUTO) 3.9 % (0.2-1.0); EOSINOPHILS # (AUTO) 0.3 x10^3/uL (0.0-0.2); EOSINOPHILS % (AUTO) 7.2 % (0.9-2.9); HEMATOCRIT 30.9 % (36.0-47.0); LYMPHOCYTES # (AUTO) 0.7 X10^3/uL (1.3-2.9); LYMPHOCYTES % (AUTO) 19.9 % (21.0-51.0); MEAN CORPUSCULAR HEMOGLOBIN 31.8 pg (27.0-34.0); MEAN CORPUSCULAR HGB CONC 32.3 g/dL (33.0-35.0); MEAN CORPUSCULAR VOLUME 98.4 fL (80.0-100.0); MEAN PLATELET VOLUME 9.7 fL (7.4-11.0); MONOCYTES # (AUTO) 0.2 x10^3/uL (0.3-0.8); MONOCYTES % (AUTO) 4.7 % (0.0-13.0); NEUTROPHILS # (AUTO) 2.4 x10^3/uL (2.2-4.8); NEUTROPHILS % (AUTO) 64.3 % (42.0-75.0); PLATELET COUNT 195 X10^3/uL (150.0-450.0); RED BLOOD COUNT 3.14 X10^6/uL (3.5-5.4); RED CELL DISTRIBUTION WIDTH 16.5 % (11.6-16.5); WHITE BLOOD COUNT 3.7 X10^3/uL (3.6-10.0)
[2020-09-06 16:37] LABS: SERUM ACETONE NEGATIVE (NEGATIVE)
[2020-09-06 16:41] LABS: ALANINE AMINOTRANSFERASE 14 Units/L (12-78); ALBUMIN 3.1 g/dL (3.4-5.0); ALKALINE PHOSPHATASE 120 Units/L (46-116); ASPARTATE AMINO TRANSFERASE 9 Units/L (15-37); BLOOD UREA NITROGEN 29 mg/dL (7-18); CARBON DIOXIDE 27.8 mmol/L (21-32); CHLORIDE 91 mmol/L (98-107); COR CA(FOR HYPOALB) 8.7 mg/dL (8.5-10.1); CREATININE 3.39 mg/dL (0.55-1.02); SODIUM 131 mmol/L (136-145); TOTAL PROTEIN 7.2 g/dL (6.4-8.2); eGFR NON BLACK RACES 16 (>60)
[2020-09-06 16:45] LABS: COR NA(FOR HYPERGLY) 147 mmol/L (136-145)
[2020-09-06] MEDS ORDERED: HumuLIN R IV STA (16:48)
[2020-09-06 16:56] LABS: PLATELET MORPHOLOGY COMMENT NORMAL (NORMAL)
[2020-09-06] MEDS ORDERED: HumuLIN R ONE ×2 (16:57→20:12)
--- NOTE | 2020-09-06 17:28 | DR.HYPOGLY ---
HPI Time Seen Time Seen by Provider: 09/06/20 16:12 PCP Primary Care Physician: Nilson HPI Comment HPI Comment: Patient notes that she was called today about her labs drawn during HD on yesterday. notes that her blood sugar was 900. States that she takes insulin for her DM and that she has not missed any doses. Notes that she had full HD session without interruption and that she has not had any N/V, abdominal pain. Complaint Chief Complaint:: Pt c/o high blood sugar since yesterday. She states it was > 900 while at dialysis yesterday. She has only had one dose of insulin today because she has not been eating well. Pt also c/o burning with urination. COVID-19 Coronavirus risk:travel/contact w/high risk person: No Has patient experienced Coronavirus symptoms: No Source History Provided: Patient Mode of Arrival Mode of Arrival: EMS Timing Onset of Chief Complaint: 09/05/20 PMH PMH Past Medical History: Yes Past Medical History: CHF, Coronary Artery Disease, Diabetes, Dialysis, Hypertension and Renal Disease Past Surgical History: Yes Surgical History: , CABG/Valve Surgery, Cholecystectomy, Ortho Surgery and Other Family History History of Family Medical Conditions: Yes Family Medical History: Diabetes Mellitus, Cancer and [place] Social History Does patient currently use any type of tobacco product: No Have you used tobacco products in the last 12 months: No Type of Tobacco Use: None Does any household member use tobacco: No Alcohol Use: None Do you use any recreational Drugs:: No Lives With: Family Travel Risk Coronavirus risk:travel/contact w/high risk person: No Has patient experienced Coronavirus symptoms: No Infectious screening In the last 2 months have you had wt loss of >10#?: NO Have you had fever, night sweats or hemotysis?: No Have you traveled outside the country in the last 6 months?: No Isolation: Standard ROS Review of Systems Constitutional: See HPI Endocrine: Other (increased blood sugar) All Other Systems: Reviewed and Negative PE Vital Signs Vitals: Temperature 99.7 F Pulse Rate 53 Respiratory Rate 18 Blood Pressure [Right Arm] 103/50 Blood Pressure [Left Calf] 132/93 Blood Pressure [Left Arm] 154/74 Blood Pressure 155/74 O2 Sat by Pulse Oximetry 100 General Limitations: No Limitations General Appearance: Alert and In No Apparent Distress Eyes Eye exam: Normal Appearance and EOMI ENT ENT Exam: Normal Exam Mouth Exam: Normal Inspection Neck Neck Exam: Normal Inspection and Trachea Midline Chest Chest Inspection: Normal Inspection and Symmetric Chest Wall Rise Respiratory Respiratory Exam: Normal Lung Sounds Bilat Respiratory Exam: Bilateral: Clear to Auscultation Cardiovascular Cardiovascular Exam: Regular Rate, Normal Rhythm and Normal Heart Sounds Abdominal Exam Abdominal Exam: Normal Inspection, Normal Bowel Sounds and Soft Neurologic Neurological Exam: Alert and Oriented X3 Psychiatric Psychiatric Exam: Normal Affect and Normal Mood Skin Skin Exam: Warm, Dry and Intact COURSE Reevaluation 1st: Improved Consultation Consultation Comments: Spoke with Dr. Castañeda who agrees with admission and will admit to his service. [facility] Labs Reviewed Laboratory Results Reviewed?: Yes Result Diagrams: 09/06/20 16:14 09/06/20 17:55 Laboratory: WBC 3.7 X10^3/uL (3.6-10.0) 09/06/20 16:14 RBC 3.14 X10^6/uL (3.5-5.4) L 09/06/20 16:14 Hgb 10.0 g/dL (12.0-16.0) L 09/06/20 16:14 Hct 30.9 % (36.0-47.0) L 09/06/20 16:14 MCV 98.4 fL (80.0-100.0) 09/06/20 16:14 MCH 31.8 pg (27.0-34.0) 09/06/20 16:14 MCHC 32.3 g/dL (33.0-35.0) L 09/06/20 16:14 RDW 16.5 % (11.6-16.5) 09/06/20 16:14 Plt Count 195 X10^3/uL (150.0-450.0) 09/06/20 16:14 Plt Count Comment Adequate (ADEQUATE) 09/06/20 16:14 MPV 9.7 fL (7.4-11.0) 09/06/20 16:14 Neut % (Auto) 64.3 % (42.0-75.0) 09/06/20 16:14 Lymph % (Auto) 19.9 % (21.0-51.0) L 09/06/20 16:14 [place] % (Auto) 4.7 % (0.0-13.0) 09/06/20 16:14 Eos % (Auto) 7.2 % (0.9-2.9) H 09/06/20 16:14 Baso % (Auto) 3.9 % (0.2-1.0) H 09/06/20 16:14 Neut # (Auto) 2.4 x10^3/uL (2.2-4.8) 09/06/20 16:14 Lymph # (Auto) 0.7 X10^3/uL (1.3-2.9) L 09/06/20 16:14 [place] # (Auto) 0.2 x10^3/uL (0.3-0.8) L 09/06/20 16:14 Eos # (Auto) 0.3 x10^3/uL (0.0-0.2) H 09/06/20 16:14 Baso # (Auto) 0.1 X10^3/uL (0.0-0.1) 09/06/20 16:14 Absolute Nucleated RBC 0.1 /100WBC 09/06/20 16:14 Total Counted 100 09/06/20 16:14 Neutrophils % (Manual) 65 % (39-76) 09/06/20 16:14 Lymphocytes % (Manual) 26 % (13-43) 09/06/20 16:14 Monocytes % (Manual) 3 % (4-9) L 09/06/20 16:14 Eosinophils % (Manual) 6 % (0-6) 09/06/20 16:14 Plt Morphology Comment Normal (NORMAL) 09/06/20 16:14 RBC Morphology Normal (NORMAL) 09/06/20 16:14 Sodium 131 mmol/L (136-145) L 09/06/20 16:14 Corrected Sodium 147 mmol/L (136-145) H 09/06/20 16:14 Potassium 3.4 mmol/L (3.5-5.1) L 09/06/20 16:14 Chloride 91 mmol/L (98-107) L 09/06/20 16:14 Carbon Dioxide 27.8 mmol/L (21-32) 09/06/20 16:14 BUN 29 mg/dL (7-18) H 09/06/20 16:14 Creatinine 3.39 mg/dL (0.55-1.02) H 09/06/20 16:14 Est GFR (MDRD) Af Amer 19 (>60) L 09/06/20 16:14 Est GFR (MDRD) Non-Af 16 (>60) L 09/06/20 16:14 Glucose 636 mg/dL (65-99) H* 09/06/20 17:55 Calcium 8.0 mg/dL (8.5-10.1) L 09/06/20 16:14 Corrected Calcium 8.7 mg/dL (8.5-10.1) 09/06/20 16:14 Total Bilirubin 1.30 mg/dL (0.2-1.0) H 09/06/20 16:14 AST 9 Units/L (15-37) L 09/06/20 16:14 ALT 14 Units/L (12-78) 09/06/20 16:14 Alkaline Phosphatase 120 Units/L (46-116) H 09/06/20 16:14 Total Protein 7.2 g/dL (6.4-8.2) 09/06/20 16:14 Albumin 3.1 g/dL (3.4-5.0) L 09/06/20 16:14 Globulin 4.1 g/dL (2.5-4.5) 09/06/20 16:14 Albumin/Globulin Ratio 0.8 Ratio (1.1-2.1) L 09/06/20 16:14 Acetone, Semi-Quant Negative (NEGATIVE) 09/06/20 16:14 Opioid Opioid Risk Tool Age (Owen box if 16-45): No History of Preadolescent Sexual Abuse: No Total: 0 Total Score Risk Category: Low Risk Copyright: Keenan HERNÁNDEZ predicting aberrant behaviors Diagnosis Discharge Problem: Diabetes mellitus, type 2, Hyperglycemia
[2020-09-06] MEDS ORDERED: SNACK - Diabetic Appropriate PO SCH (20:00)
[2020-09-06] MEDS: HumuLIN R SC PRN ×2 (20:08→21:47)
[2020-09-06] MEDS ORDERED: NORCO 5/325 MG TAB PO PRN (21:44)
[2020-09-06] MEDS: NS 1000 ML 1,000 ML IV SCH (22:01)
[2020-09-07 06:09] LABS: ALANINE AMINOTRANSFERASE 12 Units/L (12-78); ALBUMIN 2.8 g/dL (3.4-5.0); ALKALINE PHOSPHATASE 100 Units/L (46-116); ASPARTATE AMINO TRANSFERASE 10 Units/L (15-37); BLOOD UREA NITROGEN 28 mg/dL (7-18); CARBON DIOXIDE 29.4 mmol/L (21-32); CHLORIDE 102 mmol/L (98-107); CREATININE 3.07 mg/dL (0.55-1.02); SODIUM 140 mmol/L (136-145); TOTAL PROTEIN 6.5 g/dL (6.4-8.2); eGFR NON BLACK RACES 18 (>60)
[2020-09-07 06:14] LABS: BASOPHILS # (AUTO) 0.2 X10^3/uL (0.0-0.1); BASOPHILS % (AUTO) 3.7 % (0.2-1.0); EOSINOPHILS # (AUTO) 0.5 x10^3/uL (0.0-0.2); EOSINOPHILS % (AUTO) 11.1 % (0.9-2.9); HEMATOCRIT 32.3 % (36.0-47.0); LYMPHOCYTES # (AUTO) 1.3 X10^3/uL (1.3-2.9); LYMPHOCYTES % (AUTO) 28.9 % (21.0-51.0); MEAN CORPUSCULAR VOLUME 94.1 fL (80.0-100.0); MEAN PLATELET VOLUME 8.7 fL (7.4-11.0); MONOCYTES # (AUTO) 0.2 x10^3/uL (0.3-0.8); MONOCYTES % (AUTO) 5.4 % (0.0-13.0); NEUTROPHILS # (AUTO) 2.3 x10^3/uL (2.2-4.8); NEUTROPHILS % (AUTO) 50.9 % (42.0-75.0); PLATELET COUNT 199 X10^3/uL (150.0-450.0); RED BLOOD COUNT 3.44 X10^6/uL (3.5-5.4); RED CELL DISTRIBUTION WIDTH 16.1 % (11.6-16.5); WHITE BLOOD COUNT 4.6 X10^3/uL (3.6-10.0)
[2020-09-07] MEDS ORDERED: NYSTATIN OINT TOP SCH (09:00)
[2020-09-07] MEDS: ROCEPHIN VIAL 1 GRAM 1 G in NS 100 ML IV + SPIKE MINIBAG* 100 ML IV SCH ×2 (09:48→09:51)
[2020-09-07] MEDS: NS 1000 ML 1,000 ML IV SCH (10:12)
[2020-09-07 12:37] VITALS: BP 140/64
== END 2020-09-07 12:30 | disposition home or self-care (01) ==
LOC: ER 15:45 → MED/SURG 15:45
PROVIDERS: ADMIT Internal Medicine; ATTEND Internal Medicine